=== PATIENT | male | born 1935 | race Caucasian/White ===

== ENCOUNTER → 2016-11-26 | Outpatient (CLI) | payer MEDICARE, BC ==
--- NOTE | 2016-11-26 08:01 | CT ---
EXAMINATION TYPE: CT sinus wo con DATE OF EXAM: 11/26/2016 7:27 AM COMPARISON: 05/29/2010 HISTORY: Sinusitis CT DLP: 550.[address] of the paranasal sinuses was performed in the axial and coronal planes. Bone and soft tissue settings are submitted. There is been prior right medial maxillary antrectomy and ethmoidectomy seen bilaterally. There is mo derate mucosal thickening of the maxillary sinuses right greater than left without evidence for obstr uction. Remaining ethmoid air cells also demonstrate mucosal thickening. The frontal sinuses and sphe noid sinus are well aerated. Mastoid air cells are also well-aerated bilaterally. There is no evidenc e of bony destructive process. Nasal septum is midline. IMPRESSION: 1. Chronic maxillary and ethmoidal sinusitis. 2. Postoperative changes as discussed.
--- NOTE | 2016-11-26 09:36 | FL ---
ESOPHOGRAM. HISTORY: Dysphagia Esophagram was performed per the air contrast technique. The patient swallowed barium and effervesce nt crystals without difficulty or delay. Esophageal peristalsis and motility appear to be within normal limits. There is no evidence for filling defect, mass or diverticulum. No hiatal hernia seen. Subsequently single contrast cervical esophagram was performed which fails demonstrate evidence for a spiration penetration or mass. There is hypertrophy of the cricopharyngeus musculature. 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
== END | disposition home or self-care (01) ==
LOC: RADCTMAIN 06:41
PROVIDERS: ATTEND Otolaryngology
DX: J39.2 Other diseases of pharynx (principal); J32.0 Chronic maxillary sinusitis; J32.2 Chronic ethmoidal sinusitis; Z98.890 Other specified postprocedural states
CPT/HCPCS: 70486; 74220; 86235

== ENCOUNTER 2016-11-30 09:30 | Emergency (ER) | payer MEDICARE, BC ==
--- NOTE | 2016-11-30 11:04 | ED ---
Lower Extremity Injury HPI <Ricardo Hammond - Last Filed: 11/30/16 15:37> - General Source: patient, RN notes reviewed Mode of arrival: wheelchair Limitations: no limitations <Ladi Smart - Last Filed: 11/30/16 15:55> - General Chief Complaint: Extremity Injury, Lower Stated Complaint: ankle pain Time Seen by Provider: 11/30/16 10:44 - History of Present Illness Initial Comments: Patient is a 81-year-old male presents to the emergency room for evaluation of left leg pain. Patient states he began having increasing pain over the past week. Patient states he's having pain on bilateral portions of his ankle and radiating up into his calf. Patient denies any injury to his ankle. Patient states he's having significant pain in his leg. Patient denies any numbness or tingling in his toes. Patient denies any history of DVTs. Patient denies shortness of breath or chest pain. (Ladi mSart) - Related Data Home Medications Medication Instructions Recorded Confirmed Atenolol [Tenormin] 100 mg PO DAILY 11/30/16 11/30/16 Cefuroxime [Ceftin] 250 mg PO Q12H 11/30/16 11/30/16 Diltiazem HCl [Diltiazem 24Hr ER] 180 mg PO Q24H 11/30/16 11/30/16 Terazosin [Hytrin] 5 mg PO HS 11/30/16 11/30/16 Warfarin Sodium [Coumadin] 5 mg PO DAILY 11/30/16 11/30/16 Allergies Allergy/AdvReac Type Severity Reaction Status Date / Time No Known Allergies Allergy Verified 11/30/16 11:03 Review of Systems ROS Other: All systems not noted in ROS Statement are negative. <Ricardo Hammond - Last Filed: 11/30/16 15:37> ROS Other: All systems not noted in ROS Statement are negative. <Ladi Smart - Last Filed: 11/30/16 15:55> ROS Statement: Those systems with pertinent positive or pertinent negative responses have been documented in the HPI. Past Medical History Past Medical History: Atrial Fibrillation, Chest Pain / Angina, Hypertension, Prostate Disorder History of Any Multi-Drug Resistant Organisms: None Reported Past Surgical History: Joint Replacement Additional Past Surgical History / Comment(s): bilateral knee replacements, bilateral rotator cuff repairs Past Anesthesia/Blood Transfusion Reactions: No Reported Reaction Past Psychological History: No Psychological Hx Reported Smoking Status: Former smoker Past Alcohol Use History: None Reported Past Drug Use History: None Reported <Ladi Smart - Last Filed: 11/30/16 15:55> General Exam <Ricardo Hammond - Last Filed: 11/30/16 15:37> Limitations: no limitations General appearance: alert, in no apparent distress Head exam: Present: atraumatic, normocephalic, normal inspection Eye exam: Present: normal appearance ENT exam: Present: normal exam Neck exam: Present: normal inspection Respiratory exam: Present: normal lung sounds bilaterally. Absent: respiratory distress Cardiovascular Exam: Present: regular rate, normal rhythm, normal heart sounds Expanded Peripheral pulses: 1+: Dorsalis Pedis (L), 2+: Dorsalis Pedis (R) Left Lower Leg exam: Present: tenderness (Palpating over the calf muscle) Ankle exam: Present: full ROM, tenderness (Bilateral ankle joint), swelling Foot/Toe exam: Present: normal inspection, full ROM. Absent: tenderness Neurovascular tendon exam: Absent: no vascular compromise (Left ankle/foot cold to touch), pulse deficit (Decreased dorsal pedal pulses compared to right), abnormal cap refill (Capillary refill less than 2 seconds) Back exam: Present: normal inspection Neurological exam: Present: alert, oriented X3, CN II-XII intact Psychiatric exam: Present: normal affect, normal mood Skin exam: Present: warm, dry, intact, normal color. Absent: rash <Ladi Smart - Last Filed: 11/30/16 15:55> - General Exam Comments Initial Comments: Sitting on exam bed in no acute distress. (Ladi Smart) Medical Decision Making - Lab Data Result diagrams: 11/30/16 14:05 11/30/16 14:05 <Ricardo Hammond - Last Filed: 11/30/16 15:37> - Lab Data Result diagrams: 11/30/16 14:05 11/30/16 14:05 - Radiology Data Radiology results: report reviewed, image reviewed <Ladi Smart - Last Filed: 11/30/16 15:55> - Medical Decision Making The patient was seen and examined. All diagnostics were reviewed. It appears that he has a partially ischemic left leg. He does have a history of atrial fibrillation. His INR is elevated. The case is discussed with Dr. Roberts who sees the patient in the emergency department and recommends transfer to [facility]. The case is discussed with Dr. Mckinney and he is agreeable to admission. I have discussed the case with the PA and I agree with the findings as documented. (Ricardo Hammond) Patient is a 81-year-old male presents to the emergency room for evaluation of left ankle pain. Ultrasound negative for DVT. X-rays show no acute findings. Case discussed with Dr. Hammond. Patient has a history of A. fib. INR elevated. Dr. Hammond also evaluated patient and discussed case with Dr. Roberts. Dr. Banks also evaluated patient and recommended transfer to [facility]. Plan discussed with patient. (Ladi Smart) - Lab Data Lab Results 11/30/16 11/30/16 11/30/16 Range/Units 14:05 14:05 14:05 WBC 11.9 H (3.8-10.6) k/uL RBC 4.76 (4.30-5.90) m/uL Hgb 13.1 (13.0-17.5) gm/dL Hct 40.2 (39.0-53.0) % MCV 84.5 (80.0-100.0) fL MCH 27.6 (25.0-35.0) pg MCHC 32.7 (31.0-37.0) g/dL RDW 15.4 (11.5-15.5) % Plt Count 162 (150-450) k/uL Neutrophils % 87 % Lymphocytes % 6 % Monocytes % 5 % Eosinophils % 1 % Basophils % 0 % Neutrophils # 10.3 H (1.3-7.7) k/uL Lymphocytes # 0.8 L (1.0-4.8) k/uL Monocytes # 0.6 (0-1.0) k/uL Eosinophils # 0.1 (0-0.7) k/uL Basophils # 0.0 (0-0.2) k/uL PT 45.8 H (9.0-12.0) sec INR 4.6 (<1.1) APTT 38.7 H (22.0-30.0) sec Sodium 139 (137-145) mmol/L Potassium 4.4 (3.5-5.1) mmol/L Chloride 101 (98-107) mmol/L Carbon Dioxide 27 (22-30) mmol/L Anion Gap 11 mmol/L BUN 17 (9-20) mg/dL Creatinine 0.81 (0.66-1.25) mg/dL Est GFR (MDRD) Af Amer >60 (>60 ml/min/1.73 sqM) Est GFR (MDRD) Non-Af >60 (>60 ml/min/1.73 sqM) Glucose 123 H (74-99) mg/dL Calcium 9.4 (8.4-10.2) mg/dL Total Bilirubin 1.6 H (0.2-1.3) mg/dL AST 35 (17-59) U/L ALT 22 (21-72) U/L Alkaline Phosphatase 152 H (38-126) U/L Total Protein 7.5 (6.3-8.2) g/dL Albumin 3.5 (3.5-5.0) g/dL 11/30/16 14:36 Atrial fibrillation, ventricular rate 72 bpm, QRS duration 94 ms, QT/QTC 388/ 424 ms (Ladi Smart) Disposition <Ricardo Hammond - Last Filed: 11/30/16 15:37> - Out of Hospital Transfer - Req. Specs Out of Hospital Transfer - Requested Specifics: Other Emergency Center ([facility]) <Ladi Smart - Last Filed: 11/30/16 15:55> Clinical Impression: Arterial occlusion, lower extremity Disposition: OTHER INSTITUTION NOT DEFINED Condition: Stable
--- NOTE | 2016-11-30 11:21 | XR ---
EXAMINATION TYPE: XR ankle complete LT, XR tibia fibula LT DATE OF EXAM: 11/30/2016 11:16 AM CLINICAL HISTORY: pain TECHNIQUE: Frontal, lateral and oblique images of the left foot are obtained. COMPARISON: None. FINDINGS: There is no acute fracture/dislocation evident. Well-corticated ossific densities adjacent to the medial malleolus are likely chronic in nature. Cystic degenerative change about the bony tars al region and tarsometatarsal joints. The overlying soft tissue appears unremarkable. IMPRESSION: There is no acute fracture or dislocation. ICD 10 NO FRACTURE, INITIAL EVALUATION EXAMINATION TYPE: XR ankle complete LT, XR tibia fibula LT DATE OF EXAM: 11/30/2016 11:16 AM CLINICAL HISTORY: pain TECHNIQUE: AP and lateral images of the left tibia and fibula are obtained. COMPARISON: None. FINDINGS: There is no acute fracture/dislocation evident. The joint spaces appear within normal long its. The overlying soft tissue appears unremarkable. IMPRESSION: There is no acute fracture or dislocation seen. ICD 10 NO FRACTURE, INITIAL EVALUATION
--- NOTE | 2016-11-30 12:28 | US ---
EXAMINATION TYPE: US venous Doppler duplex LE LT DATE OF EXAM: 11/30/2016 11:49 AM COMPARISON: NONE CLINICAL HISTORY: EC Patient with pain and swelling left lower leg and at left ankle x 1 week. SIDE PERFORMED: Left VESSELS IMAGED: Common Femoral Vein Deep Femoral Vein Greater Saphenous Vein * Femoral Vein Popliteal Vein Small Saphenous Vein * Proximal Calf Veins (* superficial vessels) findings: Hypoechoic fluid channels are noted left ankle anteriorly at c/o swelling; left groin mult iple lymph nodes are noted with largest = 1.9 x 1.6 x 0.7cm. Left Leg: Negative for DVT IMPRESSION: Negative for DVT
[2016-11-30] MEDS ORDERED: HYDROcodone/APAP 5-325MG 1 EACH TAB PO STA (13:37)
[2016-11-30 14:26] LABS: Basophils % (A) 0 %; CH 28.1; CHCM 33.5; Eosinophils # (A) 0.1 k/uL (0-0.7); Eosinophils % (A) 1 %; HCT 40.2 % (39.0-53.0); HDW 3.13; HGB 13.1 gm/dL (13.0-17.5); Luc # (Auto) 0.09; Luc % (Auto) 1; Lymphocytes # (A) 0.8 k/uL (1.0-4.8); Lymphocytes % (A) 6 %; MCH 27.6 pg (25.0-35.0); MCHC 32.7 g/dL (31.0-37.0); MCV 84.5 fL (80.0-100.0); Mean Platelet Volume 7.8; Monocytes # (A) 0.6 k/uL (0-1.0); Monocytes % (A) 5 %; Neutrophils # (A) 10.3 k/uL (1.3-7.7); Neutrophils % (A) 87 %; RBC 4.76 m/uL (4.30-5.90); RDW 15.4 % (11.5-15.5); WBC 11.9 k/uL (3.8-10.6)
[2016-11-30 14:29] LABS: INR 4.6 (<1.1); Partial Thromboplastin Time 38.7 sec (22.0-30.0); Prothrombin Time 45.8 sec (9.0-12.0)
[2016-11-30 14:33] LABS: ALT 22 U/L (21-72); AST 35 U/L (17-59); Alkaline Phosphatase 152 U/L (38-126); Anion Gap 11 mmol/L; Blood Urea Nitrogen 17 mg/dL (9-20); Calcium 9.4 mg/dL (8.4-10.2); Carbon Dioxide 27 mmol/L (22-30); Chloride 101 mmol/L (98-107); Glucose 123 mg/dL (74-99); Non-African American GFR(MDRD) >60 (>60 ml/min/1.73 sqM); Sodium 139 mmol/L (137-145); Total Bilirubin 1.6 mg/dL (0.2-1.3); Total Protein 7.5 g/dL (6.3-8.2)
[2016-11-30 15:06] LABS: Potassium 4.4 mmol/L (3.5-5.1)
[2016-11-30 16:09] VITALS: BP 180/80; PULSE 75; RESP 16; TEMP 97
== END 2016-11-30 16:30 | disposition other institution (70) ==
LOC: EC 09:30
DX: I74.9 Embolism and thrombosis of unspecified artery (principal); I48.91 Unspecified atrial fibrillation; Z79.01 Long term (current) use of anticoagulants; I10 Essential (primary) hypertension; Z87.891 Personal history of nicotine dependence
CPT/HCPCS: 36415; 80053; 85025; 85610; 85730; 93005; 99285

== ENCOUNTER 2017-01-19 13:55 | Emergency (ER) | payer MEDICARE, BC ==
[2017-01-19 14:13] VITALS: RESP 18
--- NOTE | 2017-01-19 14:30 | ED ---
General Adult HPI - General Chief complaint: Fall Stated complaint: fall Time Seen by Provider: 01/19/17 14:17 Source: EMS, RN notes reviewed, old records reviewed Mode of arrival: EMS Limitations: no limitations - History of Present Illness Initial comments: This is a 81-year-old male to the ER for evaluation of fall. Patient's longterm, DO NOT RESUSCITATE, multiple medical comorbidities. Patient was in his wheelchair today fell forward pain front of his head. No loss of consciousness witnessed fall. [facility] and sent ER for evaluation regarding head injury. Patient self has no complaints, denies injury denies headache denies nausea vomiting. No blood thinners - Related Data Home Medications Medication Instructions Recorded Confirmed Atenolol [Tenormin] 100 mg PO DAILY 11/30/16 11/30/16 Cefuroxime [Ceftin] 250 mg PO Q12H 11/30/16 11/30/16 Diltiazem HCl [Diltiazem 24Hr ER] 180 mg PO Q24H 11/30/16 11/30/16 Terazosin [Hytrin] 5 mg PO HS 11/30/16 11/30/16 Warfarin Sodium [Coumadin] 5 mg PO DAILY 11/30/16 11/30/16 Allergies Allergy/AdvReac Type Severity Reaction Status Date / Time No Known Allergies Allergy Verified 01/19/17 14:13 Review of Systems ROS Statement: Those systems with pertinent positive or pertinent negative responses have been documented in the HPI. ROS Other: All systems not noted in ROS Statement are negative. Past Medical History Past Medical History: Atrial Fibrillation, Chest Pain / Angina, Hypertension, Prostate Disorder History of Any Multi-Drug Resistant Organisms: None Reported Past Surgical History: Joint Replacement Additional Past Surgical History / Comment(s): bilateral knee replacements, bilateral rotator cuff repairs Past Anesthesia/Blood Transfusion Reactions: No Reported Reaction Past Psychological History: No Psychological Hx Reported Smoking Status: Former smoker Past Alcohol Use History: None Reported Past Drug Use History: None Reported General Exam Limitations: no limitations General appearance: alert, in no apparent distress Head exam: Present: atraumatic, normocephalic, normal inspection Eye exam: Present: normal appearance, PERRL, EOMI. Absent: scleral icterus, conjunctival injection, periorbital swelling ENT exam: Present: normal exam, mucous membranes moist Neck exam: Present: normal inspection. Absent: tenderness, meningismus, lymphadenopathy Respiratory exam: Present: normal lung sounds bilaterally. Absent: respiratory distress, wheezes, rales, rhonchi, stridor Cardiovascular Exam: Present: regular rate, normal rhythm, normal heart sounds. Absent: systolic murmur, diastolic murmur, rubs, gallop, clicks GI/Abdominal exam: Present: soft, normal bowel sounds. Absent: distended, tenderness, guarding, rebound, rigid Extremities exam: Present: normal inspection, full ROM, normal capillary refill. Absent: tenderness, pedal edema, joint swelling, calf tenderness Back exam: Present: normal inspection Neurological exam: Present: alert, oriented X3, CN II-XII intact Psychiatric exam: Present: normal affect, normal mood Skin exam: Present: warm, dry, intact, normal color. Absent: rash Course Vital Signs 01/19/17 14:04 Temperature 97.0 F L Pulse Rate 53 L Respiratory 18 Rate Blood Pressure 123/73 O2 Sat by Pulse 97 Oximetry - Reevaluation(s) Reevaluation #1: 01/19/17 14:29 Patient remains without complaint, states this is an old injury, no headache. No nausea vomiting Medical Decision Making - Medical Decision Making 81 mallei are status post fall, thought a wheelchair hitting head anterior head injury no loss of consciousness patient has no complaints CT brain is negative and patient can be discharged back to nursing facility - Radiology Data Radiology results: report reviewed (CT brain negative for acute disease), image reviewed Disposition Clinical Impression: Fall, Head injury Disposition: HOME SELF-CARE Condition: Good Instructions: Fall Prevention for Older Adults (ED) Referrals: Nia Collier MD [Primary Care Provider] - 1-2 days
--- NOTE | 2017-01-19 15:09 | CT ---
EXAMINATION TYPE: CT brain wo con DATE OF EXAM: 01/19/2017 2:49 PM HISTORY: Headache per order. Follow injury with confusion. CT DLP: 1079.60 mGycm. Automated Exposure Control for Dose Reduction was Utilized. TECHNIQUE: CT scan of the head is performed without contrast. COMPARISON: None. FINDINGS: There is no acute intracranial hemorrhage or midline shift identified. There is diffuse v entricular and sulcal prominence consistent with diffuse age-related cerebral atrophy. Degree of vent ricular prominence is out of proportion to degree of sulcal effacement and a normal pressure hydrocep halus cannot be excluded. There is low-attenuation in the periventricular white matter consistent wit h chronic small vessel ischemic change. There is moderate mucosal thickening in the right maxillary s inus and mild mucosal thickening in the left maxillary sinus. Some sclerosis and thickening left maxi llary sinus wall is noted. There is evidence of prior surgery at level of ostiomeatal complex bilater ally. There is air-fluid level in the right frontal sinus. The globes are intact bilaterally. The vivi varium is intact.. IMPRESSION: No acute intracranial hemorrhage or midline shift. There is moderate diffuse age-relate d cerebral atrophy and mild chronic small vessel ischemic change noted. A normal pressure hydrocepha jonas is not excluded. Correlation with old outside studies would be beneficial to assess interval ann ge. There is acute on chronic paranasal sinus disease noted as detailed above despite prior sinus lizabeth marbella.
[2017-01-19 15:49] VITALS: BP 134/60; PULSE 58; TEMP 98
== END 2017-01-19 15:58 | disposition home or self-care (01) ==
LOC: EC 13:55
DX: S09.90XA Unspecified injury of head, initial encounter (principal); I48.91 Unspecified atrial fibrillation; I10 Essential (primary) hypertension; Z87.891 Personal history of nicotine dependence; Z79.01 Long term (current) use of anticoagulants; Z79.899 Other long term (current) drug therapy; W06.XXXA Fall from bed, initial encounter; Y92.009 Unspecified place in unspecified non-institutional (private) residence as the place of occurrence of the external cause
CPT/HCPCS: 70450; 99285

== ENCOUNTER 2017-08-31 20:29 | Emergency (ER) | payer MEDICARE, BC, OTHER ==
[2017-08-31 20:42] VITALS: RESP 18
--- NOTE | 2017-08-31 21:25 | ED ---
Extremity Problem HPI - General Chief complaint: Extremity Problem,Nontraumatic Stated complaint: lower extremity edema Time Seen by Provider: 08/31/17 21:00 Source: patient, EMS, RN notes reviewed Mode of arrival: EMS Limitations: no limitations - History of Present Illness Initial comments: This 82-year-old male was brought in for evaluation of right lower extremity edema he states it for several weeks also states he has some sores in her being treated on his right lateral ankle and foot he has a chest patient's breath fevers chills sweats or other symptoms he does have chronic A. fib he is diabetic. 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 Please see the previous records for complete report MD Complaint: extremity swelling - Related Data Home Medications Medication Instructions Recorded Confirmed Warfarin Sodium [Coumadin] 5 mg PO DAILY 11/30/16 08/31/17 Atorvastatin [Lipitor] 20 mg PO HS@209901/19/17 08/31/17 Diltiazem HCl [Diltiazem ER] 360 mg PO DAILY@0900 01/19/17 08/31/17 Furosemide [Lasix] 40 mg PO DAILY@0600 01/19/17 08/31/17 HYDROcodone/APAP 5-325MG [Butler 1 - 2 tab PO Q4HR PRN 01/19/17 08/31/17 5-325] Ipratropium-Albuterol Nebulize 3 ml INHALATION RT-Q6H PRN 01/19/17 08/31/17 [Duoneb 0.5 mg-3 mg/3 ml Soln] Metoprolol Tartrate [Lopressor] 50 mg PO BID@0900,209901/19/17 08/31/17 Omeprazole [PriLOSEC] 20 mg PO DAILY@0600 01/19/17 08/31/17 Terazosin HCl [Hytrin] 10 mg PO HS@209901/19/17 08/31/17 SILVER sulfADIAZINE Cream 1 applic TOPICAL DAILY 08/31/17 08/31/17 [Silvadene 1% Cream] Allergies Allergy/AdvReac Type Severity Reaction Status Date / Time No Known Allergies Allergy Verified 08/31/17 21:03 Review of Systems ROS Statement: Those systems with pertinent positive or pertinent negative responses have been documented in the HPI. ROS Other: All systems not noted in ROS Statement are negative. Past Medical History Past Medical History: Atrial Fibrillation, Chest Pain / Angina, Heart Failure, GERD/Reflux, Hyperlipidemia, Hypertension, Prostate Disorder History of Any Multi-Drug Resistant Organisms: None Reported Past Surgical History: Joint Replacement Additional Past Surgical History / Comment(s): bilateral knee replacements, bilateral rotator cuff repairs, left BKA Past Anesthesia/Blood Transfusion Reactions: No Reported Reaction Past Psychological History: Anxiety Smoking Status: Former smoker Past Alcohol Use History: None Reported Past Drug Use History: None Reported General Exam - General Exam Comments Initial Comments: This is a well-developed well-nourished awake alert oriented 3 male Limitations: no limitations General appearance: alert, in no apparent distress Head exam: Present: atraumatic, normocephalic, normal inspection Eye exam: Present: normal appearance, PERRL, EOMI. Absent: scleral icterus, conjunctival injection, periorbital swelling ENT exam: Present: normal exam, mucous membranes moist Neck exam: Present: normal inspection. Absent: tenderness, meningismus, lymphadenopathy Respiratory exam: Present: normal lung sounds bilaterally. Absent: respiratory distress, wheezes, rales, rhonchi, stridor Cardiovascular Exam: Present: irregular rhythm. Absent: systolic murmur, diastolic murmur, rubs, gallop, clicks GI/Abdominal exam: Present: soft, normal bowel sounds. Absent: distended, tenderness, guarding, rebound, rigid Extremities exam: Present: full ROM, normal capillary refill, pedal edema ( Patient does demonstrate perhaps +1 edema to the right lower extremity with wounds are over the lateral right ankle and lateral foot at the level of the fifth metatarsal phalangeal joint with dressing is intact.). Absent: tenderness , joint swelling, calf tenderness Back exam: Present: normal inspection, full ROM (The patient does have a above the knee of dictation the left with the appliance in place) Neurological exam: Present: alert, oriented X3, CN II-XII intact Psychiatric exam: Present: normal affect, normal mood Skin exam: Present: warm, dry, intact, normal color. Absent: rash Course Vital Signs 08/31/17 08/31/17 20:39 23:19 Temperature 97.6 F Pulse Rate 48 L 42 L Respiratory 18 18 Rate Blood Pressure 137/63 156/66 O2 Sat by Pulse 96 97 Oximetry Medical Decision Making - Medical Decision Making I did discuss findings with the patient will be discharged back to his facility. - Lab Data Result diagrams: 08/31/17 20:40 08/31/17 20:40 Lab Results 08/31/17 08/31/17 08/31/17 Range/Units 20:40 20:40 20:40 WBC 5.9 (3.8-10.6) k/uL RBC 3.76 L (4.30-5.90) m/uL Hgb 10.7 L (13.0-17.5) gm/dL Hct 34.2 L (39.0-53.0) % MCV 91.1 (80.0-100.0) fL MCH 28.3 (25.0-35.0) pg MCHC 31.1 (31.0-37.0) g/dL RDW 14.8 (11.5-15.5) % Plt Count 161 (150-450) k/uL Neutrophils % 64 % Lymphocytes % 20 % Monocytes % 5 % Eosinophils % 11 % Basophils % 0 % Neutrophils # 3.8 (1.3-7.7) k/uL Lymphocytes # 1.2 (1.0-4.8) k/uL Monocytes # 0.3 (0-1.0) k/uL Eosinophils # 0.6 (0-0.7) k/uL Basophils # 0.0 (0-0.2) k/uL Sodium 137 (137-145) mmol/L Potassium 4.2 (3.5-5.1) mmol/L Chloride 102 (98-107) mmol/L Carbon Dioxide 26 (22-30) mmol/L Anion Gap 9 mmol/L BUN 23 H (9-20) mg/dL Creatinine 0.76 (0.66-1.25) mg/dL Est GFR (MDRD) Af Amer >60 (>60 ml/min/1.73 sqM) Est GFR (MDRD) Non-Af >60 (>60 ml/min/1.73 sqM) Glucose 223 H (74-99) mg/dL Calcium 8.4 (8.4-10.2) mg/dL Magnesium 1.7 (1.6-2.3) mg/dL Total Bilirubin 0.3 (0.2-1.3) mg/dL AST 15 L (17-59) U/L ALT 24 (21-72) U/L Alkaline Phosphatase 121 (38-126) U/L Total Creatine Kinase 47 L (55-170) U/L CK-MB (CK-2) 1.7 (0.0-2.4) ng/mL CK-MB (CK-2) Rel Index 3.6 Total Protein 6.5 (6.3-8.2) g/dL Albumin 2.9 L (3.5-5.0) g/dL - EKG Data -: EKG Interpreted by Me EKG shows normal: sinus rhythm (Nonspecific T-wave configuration) - Radiology Data Radiology results: report reviewed (I did review the imaging and reports no acute findings.), image reviewed Disposition Clinical Impression: Peripheral edema Disposition: HOME SELF-CARE Condition: Good Instructions: Edema (ED) Referrals: Nia Collier MD [Primary Care Provider] - 1-2 days
[2017-08-31 21:34] LABS: Basophils % (A) 0 %; CH 29.3; CHCM 32.4; Eosinophils # (A) 0.6 k/uL (0-0.7); Eosinophils % (A) 11 %; HCT 34.2 % (39.0-53.0); HDW 3.08; HGB 10.7 gm/dL (13.0-17.5); Luc # (Auto) 0.04; Luc % (Auto) 1; Lymphocytes # (A) 1.2 k/uL (1.0-4.8); Lymphocytes % (A) 20 %; MCH 28.3 pg (25.0-35.0); MCHC 31.1 g/dL (31.0-37.0); MCV 91.1 fL (80.0-100.0); Mean Platelet Volume 8.2; Monocytes # (A) 0.3 k/uL (0-1.0); Monocytes % (A) 5 %; Neutrophils # (A) 3.8 k/uL (1.3-7.7); Neutrophils % (A) 64 %; RBC 3.76 m/uL (4.30-5.90); RDW 14.8 % (11.5-15.5); WBC 5.9 k/uL (3.8-10.6); WBC (Perox) 5.62
--- NOTE | 2017-08-31 21:43 | XR ---
EXAMINATION TYPE: XR chest 2V DATE OF EXAM: 08/31/2017 COMPARISON: 08/20/2016 HISTORY: Cough TECHNIQUE: Frontal and lateral views of the chest are obtained. FINDINGS: Heart is slightly enlarged. There is no heart failure. Thoracic aorta is atheromatous. The re is no definite pleural effusion. There are chest leads. IMPRESSION: No active cardiac pulmonary disease. There is clearing of the atelectasis and pleural th ickening on the right minor fissure compared to last exam. Mild cardiomegaly.
[2017-08-31 21:51] LABS: ALT 24 U/L (21-72); AST 15 U/L (17-59); Alkaline Phosphatase 121 U/L (38-126); Anion Gap 9 mmol/L; Blood Urea Nitrogen 23 mg/dL (9-20); Calcium 8.4 mg/dL (8.4-10.2); Carbon Dioxide 26 mmol/L (22-30); Chloride 102 mmol/L (98-107); Glucose 223 mg/dL (74-99); Magnesium 1.7 mg/dL (1.6-2.3); Non-African American GFR(MDRD) >60 (>60 ml/min/1.73 sqM); Potassium 4.2 mmol/L (3.5-5.1); Sodium 137 mmol/L (137-145); Total Bilirubin 0.3 mg/dL (0.2-1.3); Total Protein 6.5 g/dL (6.3-8.2)
[2017-08-31 21:59] LABS: Creatine Kinase MB 1.7 ng/mL (0.0-2.4)
--- NOTE | 2017-08-31 23:23 | US ---
EXAMINATION TYPE: US venous doppler duplex LE RT DATE OF EXAM: 08/31/2017 11:09 PM COMPARISON: NONE CLINICAL HISTORY: Pain. right leg edema SIDE PERFORMED: Right TECHNIQUE: The lower extremity deep venous system is examined utilizing real time linear array sonog kevon with graded compression, doppler sonography and color-flow sonography. VESSELS IMAGED: External Iliac Vein (EIV) Common Femoral Vein Deep Femoral Vein Greater Saphenous Vein * Femoral Vein Popliteal Vein Small Saphenous Vein * Proximal Calf Veins (* superficial vessels) Right Leg: Negative for DVT No evidence of DVT right leg IMPRESSION: Normal exam. No evidence of deep venous thrombosis in the right leg.
[2017-09-01 01:34] VITALS: BP 152/70; PULSE 46; TEMP 98
== END 2017-09-01 01:33 | disposition home or self-care (01) ==
LOC: EC 20:29
DX: R60.0 Localized edema (principal); I48.91 Unspecified atrial fibrillation; K21.9 Gastro-esophageal reflux disease without esophagitis; I11.0 Hypertensive heart disease with heart failure; I50.9 Heart failure, unspecified; E78.5 Hyperlipidemia, unspecified; Z87.891 Personal history of nicotine dependence; Z96.653 Presence of artificial knee joint, bilateral; Z89.512 Acquired absence of left leg below knee; Z79.01 Long term (current) use of anticoagulants; Z79.899 Other long term (current) drug therapy
CPT/HCPCS: 36415; 71020; 80053; 82550; 82553; 83735; 85025; 93005; 99284

== ENCOUNTER 2018-06-11 19:06 | Emergency (ER) | payer MEDICARE, BC ==
[2018-06-11 19:41] VITALS: TEMP 97.8
[2018-06-11] MEDS ORDERED: SODIUM CHLORIDE 0.9% 1,000 ML IV STA (21:22)
--- NOTE | 2018-06-11 21:28 | ED ---
Abdominal Pain HPI - General Chief Complaint: Abdominal Pain Stated Complaint: Constipation Time Seen by Provider: 06/11/18 21:14 Source: patient, RN notes reviewed Mode of arrival: ambulatory Limitations: no limitations - History of Present Illness Initial Comments: This is an 82-year-old male presents emergency Department chief complaint abdominal pain. Patient's been having worsening pain over the last 1 month. Patient states IT'S worse when he eats. He states he gets severe diffuse abdominal pain. Patient denies any fever, chills, chest pain, shortness of breath. Patient states he is not discussed this with his primary care physician. Patient states that he does occasionally vomit he is very nausea. Patient also has mixed diarrhea and constipation at times. Patient denies any melena or hematochezia. Patient states that he's had no prior abdominal surgeries. - Related Data Home Medications Medication Instructions Recorded Confirmed Warfarin Sodium [Coumadin] 5 mg PO DAILY 11/30/16 06/01/18 Atorvastatin [Lipitor] 20 mg PO HS@2100 01/19/17 06/01/18 Furosemide [Lasix] 40 mg PO DAILY@0600 01/19/17 06/01/18 HYDROcodone/APAP 5-325MG [[place] 1 - 2 tab PO Q4HR PRN 01/19/17 06/01/18 5-325] Metoprolol Tartrate [Lopressor] 50 mg PO BID@0900,2100 01/19/17 06/01/18 Terazosin HCl [Hytrin] 10 mg PO HS@2100 01/19/17 06/01/18 Aspirin 81 mg PO DAILY 11/05/17 06/01/18 Sennosides [Senna] 8.6 mg PO DAILY 11/05/17 06/01/18 Sulfamethox-Tmp 800-160Mg [Bactrim 1 tab PO Q12HR 06/01/18 06/01/18 DS 800-160 mg] Previous Rx's Medication Instructions Recorded Diltiazem Cd [Cardizem CD] 180 mg PO DAILY@0900 cap.er.24h 11/08/17 Ipratropium-Albuterol Nebulize 3 ml INHALATION RT-QID ampul.neb 11/08/17 [Duoneb 0.5 mg-3 mg/3 ml Soln] Omeprazole 40 mg PO DAILY #14 capsule. 06/11/18 Allergies Allergy/AdvReac Type Severity Reaction Status Date / Time No Known Allergies Allergy Verified 06/11/18 19:40 Review of Systems ROS Statement: Those systems with pertinent positive or pertinent negative responses have been documented in the HPI. ROS Other: All systems not noted in ROS Statement are negative. Past Medical History Past Medical History: Atrial Fibrillation, Chest Pain / Angina, Heart Failure, GERD/Reflux, Hyperlipidemia, Hypertension, Prostate Disorder History of Any Multi-Drug Resistant Organisms: None Reported Date of last positivie culture/infection: 05/18/18 MDRO Source:: ANKLE Past Surgical History: Joint Replacement Additional Past Surgical History / Comment(s): bilateral knee replacements, bilateral rotator cuff repairs, left BKA Past Anesthesia/Blood Transfusion Reactions: No Reported Reaction Past Psychological History: Anxiety, Depression Smoking Status: Former smoker Past Alcohol Use History: None Reported Past Drug Use History: None Reported - Past Family History Father History Unknown: Yes Mother History Unknown: Yes General Exam Limitations: no limitations General appearance: alert, in no apparent distress Head exam: Present: atraumatic, normocephalic, normal inspection Neck exam: Present: normal inspection, full ROM. Absent: tenderness, meningismus, lymphadenopathy Respiratory exam: Present: normal lung sounds bilaterally. Absent: respiratory distress, wheezes, rales, rhonchi, stridor Cardiovascular Exam: Present: regular rate, normal rhythm, normal heart sounds. Absent: systolic murmur, diastolic murmur, rubs, gallop, clicks GI/Abdominal exam: Present: soft, tenderness (Patient complains of mild diffuse tenderness), normal bowel sounds. Absent: distended, guarding, rebound, rigid Back exam: Absent: CVA tenderness (R), CVA tenderness (L) Skin exam: Present: warm, dry, intact, normal color. Absent: rash Course Vital Signs 06/11/18 19:36 Temperature 97.8 F Pulse Rate 53 L Respiratory 18 Rate Blood Pressure 160/65 O2 Sat by Pulse 95 Oximetry Medical Decision Making - Medical Decision Making 82-year-old male presents emergency from for abdominal pain after eating. Patient has essentially normal lab work, and CT. Patient most likely has some gastritis will be started on omeprazole. Patient was given Protonix in the emergency department. He does state that he gets relief when he eats,'s. Patient will follow-up with on-call GI or surgery for EGD and return parameters were discussed. - Lab Data Result diagrams: 06/11/18 21:40 06/11/18 21:40 Lab Results 06/11/18 06/11/18 06/11/18 Range/Units 21:40 21:40 21:40 WBC 8.0 (3.8-10.6) k/uL RBC 4.66 (4.30-5.90) m/uL Hgb 12.5 L (13.0-17.5) gm/dL Hct 39.4 (39.0-53.0) % MCV 84.4 (80.0-100.0) fL MCH 26.8 (25.0-35.0) pg MCHC 31.8 (31.0-37.0) g/dL RDW 15.2 (11.5-15.5) % Plt Count 203 (150-450) k/uL Neutrophils % 75 % Lymphocytes % 15 % Monocytes % 4 % Eosinophils % 5 % Basophils % 0 % Neutrophils # 6.0 (1.3-7.7) k/uL Lymphocytes # 1.2 (1.0-4.8) k/uL Monocytes # 0.3 (0-1.0) k/uL Eosinophils # 0.4 (0-0.7) k/uL Basophils # 0.0 (0-0.2) k/uL PT 24.4 H (9.0-12.0) sec INR 2.7 H (<1.2) APTT 31.5 H (22.0-30.0) sec Sodium 136 L (137-145) mmol/L Potassium 4.3 (3.5-5.1) mmol/L Chloride 104 (98-107) mmol/L Carbon Dioxide 25 (22-30) mmol/L Anion Gap 7 mmol/L BUN 23 H (9-20) mg/dL Creatinine 0.80 (0.66-1.25) mg/dL Est GFR (CKD-EPI)AfAm >90 (>60 ml/min/1.73 sqM) Est GFR (CKD-EPI)NonAf 85 (>60 ml/min/1.73 sqM) Glucose 103 H (74-99) mg/dL Calcium 8.9 (8.4-10.2) mg/dL Total Bilirubin 1.1 (0.2-1.3) mg/dL AST 26 (17-59) U/L ALT 36 (21-72) U/L Alkaline Phosphatase 126 (38-126) U/L Total Protein 6.7 (6.3-8.2) g/dL Albumin 3.1 L (3.5-5.0) g/dL Amylase <30 L (30-110) U/L Lipase 11 L (23-300) U/L Urine Color Urine Appearance (Clear) Urine pH (5.0-8.0) Ur Specific [place] (1.001-1.035) Urine Protein (Negative) Urine Glucose (UA) (Negative) Urine Ketones (Negative) Urine Blood (Negative) Urine Nitrite (Negative) Urine Bilirubin (Negative) Urine Urobilinogen (<2.0) mg/dL Ur Leukocyte Esterase (Negative) Urine RBC (0-5) /hpf Urine WBC (0-5) /hpf Ur Squamous Epith Cells (0-4) /hpf Hyaline Casts (0-2) /lpf Urine Mucus (None) /hpf 06/11/18 Range/Units 21:40 WBC (3.8-10.6) k/uL RBC (4.30-5.90) m/uL Hgb (13.0-17.5) gm/dL Hct (39.0-53.0) % MCV (80.0-100.0) fL MCH (25.0-35.0) pg MCHC (31.0-37.0) g/dL RDW (11.5-15.5) % Plt Count (150-450) k/uL Neutrophils % % Lymphocytes % % Monocytes % % Eosinophils % % Basophils % % Neutrophils # (1.3-7.7) k/uL Lymphocytes # (1.0-4.8) k/uL Monocytes # (0-1.0) k/uL Eosinophils # (0-0.7) k/uL Basophils # (0-0.2) k/uL PT (9.0-12.0) sec INR (<1.2) APTT (22.0-30.0) sec Sodium (137-145) mmol/L Potassium (3.5-5.1) mmol/L Chloride (98-107) mmol/L Carbon Dioxide (22-30) mmol/L Anion Gap mmol/L BUN (9-20) mg/dL Creatinine (0.66-1.25) mg/dL Est GFR (CKD-EPI)AfAm (>60 ml/min/1.73 sqM) Est GFR (CKD-EPI)NonAf (>60 ml/min/1.73 sqM) Glucose (74-99) mg/dL Calcium (8.4-10.2) mg/dL Total Bilirubin (0.2-1.3) mg/dL AST (17-59) U/L ALT (21-72) U/L Alkaline Phosphatase (38-126) U/L Total Protein (6.3-8.2) g/dL Albumin (3.5-5.0) g/dL Amylase (30-110) U/L Lipase (23-300) U/L Urine Color Yellow Urine Appearance Cloudy (Clear) Urine pH 5.5 (5.0-8.0) Ur Specific [place] 1.022 (1.001-1.035) Urine Protein 2+ H (Negative) Urine Glucose (UA) Negative (Negative) Urine Ketones Negative (Negative) Urine Blood Moderate H (Negative) Urine Nitrite Negative (Negative) Urine Bilirubin Negative (Negative) Urine Urobilinogen 2.0 (<2.0) mg/dL Ur Leukocyte Esterase Negative (Negative) Urine RBC 10 H (0-5) /hpf Urine WBC 4 (0-5) /hpf Ur Squamous Epith Cells <1 (0-4) /hpf Hyaline Casts 5 H (0-2) /lpf Urine Mucus Few H (None) /hpf Disposition Clinical Impression: Abdominal pain, Gastritis Disposition: HOME SELF-CARE Condition: Stable Instructions: Abdominal Pain (ED) Additional Instructions: Please return to the Emergency Department if symptoms worsen or any other concerns. Prescriptions: Omeprazole 40 mg PO DAILY #14 capsule.dr Is patient prescribed a controlled substance at d/c from ED?: No Referrals: Nia Collier MD [Primary Care Provider] - 1-2 days Shailesh Barriga DO [Doctor of Osteopathic Medicine] - 1-2 days Sandra Castillo MD [STAFF PHYSICIAN] - 1-2 days Time of Disposition: 23:19
[2018-06-11 21:51] LABS: Basophils % (A) 0 %; Eosinophils # (A) 0.4 k/uL (0-0.7); Eosinophils % (A) 5 %; HCT 39.4 % (39.0-53.0); HGB 12.5 gm/dL (13.0-17.5); Lymphocytes # (A) 1.2 k/uL (1.0-4.8); Lymphocytes % (A) 15 %; MCH 26.8 pg (25.0-35.0); MCHC 31.8 g/dL (31.0-37.0); MCV 84.4 fL (80.0-100.0); Monocytes # (A) 0.3 k/uL (0-1.0); Monocytes % (A) 4 %; Neutrophils % (A) 75 %; Platelet Count 203 k/uL (150-450); RBC 4.66 m/uL (4.30-5.90); RDW 15.2 % (11.5-15.5)
[2018-06-11 21:56] LABS: Appearance,Urine Cloudy (Clear); Bilirubin,Urine Negative (Negative); Blood,Urine Moderate (Negative); Color,Urine Yellow; Glucose,Urine (UA) Negative (Negative); Hyaline Casts,Urine 5 /lpf (0-2); Ketones,Urine Negative (Negative); Leukocyte Esterase,Urine Negative (Negative); Mucus,Urine Few /hpf; Nitrite,Urine Negative (Negative); PH, Urine 5.5 (5.0-8.0); Protein,Urine 2+ (Negative); RBC,Urine 10 /hpf (0-5); Specific Gravity,Urine 1.022 (1.001-1.035); Squamous Epithelial Cell,Urine <1 /hpf (0-4); WBC,Urine 4 /hpf (0-5)
[2018-06-11 22:00] LABS: ALT 36 U/L (21-72); AST 26 U/L (17-59); Albumin 3.1 g/dL (3.5-5.0); Alkaline Phosphatase 126 U/L (38-126); Amylase <30 U/L (30-110); Anion Gap 7 mmol/L; Blood Urea Nitrogen 23 mg/dL (9-20); Calcium 8.9 mg/dL (8.4-10.2); Carbon Dioxide 25 mmol/L (22-30); Chloride 104 mmol/L (98-107); Glucose 103 mg/dL (74-99); Lipase 11 U/L (23-300); Potassium 4.3 mmol/L (3.5-5.1); Sodium 136 mmol/L (137-145); Total Bilirubin 1.1 mg/dL (0.2-1.3); Total Protein 6.7 g/dL (6.3-8.2)
[2018-06-11 22:03] LABS: INR 2.7 (<1.2); Partial Thromboplastin Time 31.5 sec (22.0-30.0); Prothrombin Time 24.4 sec (9.0-12.0)
--- NOTE | 2018-06-11 23:04 | CT ---
EXAMINATION TYPE: CT abdomen pelvis w con DATE OF EXAM: 06/11/2018 COMPARISON: 08/17/2016 HISTORY: Vomiting and lower abdominal pain. Prior on pacs. CT DLP: 557.60 mGycm Automated exposure control for dose reduction was used. TECHNIQUE: Helical acquisition of images was performed from the lung bases through the pelvis. CONTRAST: Performed without Oral Contrast and with IV Contrast, patient injected with 100 mL of Isovue 300. FINDINGS: There is coarse subsegmental atelectasis at the lung bases. There is no pleural effusion. Heart is en larged. Liver and spleen appear normal. Bile ducts are not dilated. There is no evidence of pancreatic mass. Gallbladder appears normal. Abdominal aorta is atheromatous. There is no adrenal mass. There are poss ible nonobstructing right renal calculi. There is no retroperitoneal adenopathy. There is no ascites. Prostate is enlarged. Prostate measures 5 cm. I see no intestinal wall thickening. There are no dila nakia loops. There is no evidence of a bowel obstruction. There are few sigmoid diverticula. There is n o sign of diverticulitis. There are some spondylotic changes in the lumbar spine. There is no wily blanche fracture. IMPRESSION: ATHEROSCLEROTIC VASCULAR DISEASE. NONOBSTRUCTING SMALL RIGHT RENAL CALCIFICATIONS. SOME OF THESE COUL D BE VASCULAR. MILD FIBROTIC CHANGE AND ATELECTASIS AT THE LUNG BASES. THERE IS CLEARING OF THE PLEUR AL FLUID COMPARED TO OLD EXAM. SPLEEN IS UPPER LIMIT OF NORMAL SIZE AND MEASURES 13 CM.
[2018-06-11] MEDS ORDERED: PANTOPRAZOLE 40 MG/10 ML VIAL IVP STA (23:17)
[2018-06-11 23:38] VITALS: BP 174/98; PULSE 70; RESP 16
== END 2018-06-11 23:43 | disposition home or self-care (01) ==
LOC: EC 19:06
DX: K29.70 Gastritis, unspecified, without bleeding (principal); I48.91 Unspecified atrial fibrillation; I20.9 Angina pectoris, unspecified; I11.0 Hypertensive heart disease with heart failure; I50.9 Heart failure, unspecified; K21.9 Gastro-esophageal reflux disease without esophagitis; E78.5 Hyperlipidemia, unspecified; N42.9 Disorder of prostate, unspecified; Z87.891 Personal history of nicotine dependence; Z96.653 Presence of artificial knee joint, bilateral; Z79.01 Long term (current) use of anticoagulants; Z79.82 Long term (current) use of aspirin; Z79.899 Other long term (current) drug therapy
CPT/HCPCS: 36415; 80053; 82150; 83690; 85025; 85610; 85730; 81001; 74177; 99284; 96374; 96361; C9113; Q9967

== ENCOUNTER 2018-07-21 11:30 | Inpatient (IN) | payer MEDICARE, BC ==
[2018-07-21] MEDS ORDERED: SODIUM CHLORIDE 0.9% 500 ML IV STA (11:38)
--- NOTE | 2018-07-21 11:53 | ED ---
General Adult HPI - General Chief complaint: Abdominal Pain Stated complaint: abdominal pain Time Seen by Provider: 07/21/18 11:30 Source: patient, EMS, RN notes reviewed Mode of arrival: EMS Limitations: no limitations - History of Present Illness Initial comments: This is an 82-year-old male who arrived by ambulance complaining of abdominal pain. When I asked the patient wears pain was he said right and left lower abdomen. Patient states he is having some episodes of diarrhea and has vomited. Patient states she is no longer nauseated since they gave her medicine in the ambulance. Patient is extremely hard of hearing and therefore not a great historian. He denies any fever chills he denies any chest pain difficulty breathing or shortness of breath. Patient denies any dysuria hematuria urinary frequency. Patient denies any other complaints at this time. - Related Data Home Medications Medication Instructions Recorded Confirmed Warfarin Sodium [Coumadin] 2.5 mg PO DAILY 11/30/16 07/21/18 Atorvastatin [Lipitor] 20 mg PO HS@2100 01/19/17 07/21/18 Furosemide [Lasix] 40 mg PO DAILY@0600 01/19/17 07/21/18 Metoprolol Tartrate [Lopressor] 50 mg PO BID@0900,2100 01/19/17 07/21/18 Aspirin 81 mg PO DAILY 11/05/17 07/21/18 Sennosides [Senna] 8.6 mg PO BID 11/05/17 07/21/18 Levothyroxine Sodium 25 mcg PO DAILY 07/21/18 07/21/18 Lisinopril [Zestril] 20 mg PO DAILY 07/21/18 07/21/18 Sertraline HCl [Zoloft] 50 mg PO HS 07/21/18 07/21/18 Sucralfate [Carafate] 1 gm PO QID 07/21/18 07/21/18 Previous Rx's Medication Instructions Recorded Omeprazole 40 mg PO DAILY #14 capsule. 06/11/18 Allergies Allergy/AdvReac Type Severity Reaction Status Date / Time No Known Allergies Allergy Verified 07/21/18 12:13 Review of Systems ROS Statement: Those systems with pertinent positive or pertinent negative responses have been documented in the HPI. ROS Other: All systems not noted in ROS Statement are negative. Past Medical History Past Medical History: Atrial Fibrillation, Chest Pain / Angina, Heart Failure, GERD/Reflux, Hyperlipidemia, Hypertension, Prostate Disorder History of Any Multi-Drug Resistant Organisms: None Reported Date of last positivie culture/infection: 05/18/18 MDRO Source:: ANKLE Past Surgical History: Joint Replacement Additional Past Surgical History / Comment(s): bilateral knee replacements, bilateral rotator cuff repairs, left BKA Past Anesthesia/Blood Transfusion Reactions: No Reported Reaction Past Psychological History: Anxiety, Depression Smoking Status: Former smoker Past Alcohol Use History: None Reported Past Drug Use History: None Reported - Past Family History Father History Unknown: Yes Mother History Unknown: Yes General Exam - General Exam Comments Initial Comments: GENERAL: Patient is well-developed and well-nourished. Patient is nontoxic and well- hydrated and is in mild distress. ENT: Neck is soft and supple. No significant lymphadenopathy is noted. Oropharynx is clear. Moist mucous membranes. Neck has full range of motion without eliciting any pain. EYES: The sclera were anicteric and conjunctiva were pink and moist. Extraocular movements were intact and pupils were equal round and reactive to light. Eyelids were unremarkable. PULMONARY: Unlabored respirations. Good breath sounds bilaterally. No audible rales rhonchi or wheezing was noted. CARDIOVASCULAR: Patient has an irregular rhythm. ABDOMEN: Left and right lower quadrant tenderness. No palpable organomegaly was noted. There is no palpable pulsatile mass. SKIN: Skin is clear with no lesions or rashes and otherwise unremarkable. NEUROLOGIC: Patient is alert and oriented difficult to assess orientation since he was hard of hearing. Cranial nerves II through XII are grossly intact. Motor and sensory are also intact. Normal speech, volume and content. Symmetrical smile. MUSCULOSKELETAL: 3 of the extremities have adequate strength and full range of motion. Patient has a BKA on the left. No lower extremity swelling or edema. No calf tenderness. LYMPHATICS: No significant lymphadenopathy is noted PSYCHIATRIC: Normal psychiatric evaluation. Limitations: no limitations Course Vital Signs 07/21/18 07/21/18 07/21/18 11:34 13:20 14:08 Temperature 96 F L Pulse Rate 58 L 102 H 103 H Respiratory 20 20 18 Rate Blood Pressure 148/83 158/80 144/89 O2 Sat by Pulse 97 96 Oximetry Procedures - Sepsis Sepsis Focused Exam #1 Time Sepsis Criteria Met: 03:00 Sepsis Focused Exam Date: 07/21/18 Sepsis Focused Exam Time: 13:00 Sepsis Focused Exam Complete: Yes Vital Signs & RN Notes Reviewed: Yes Capillary Refill: < 2 Seconds: Fingers Peripheral Pulses: Normal: Radial (R) Skin Color: Normal for Patient Respiratory Exam: rales (Slight crackles in the bases) Cardiovascular Exam: tachycardia, irregular rhythm Medical Decision Making - Medical Decision Making Patient received Zosyn in the emergency department. CAT scan was reviewed by myself as well as the x-ray. Patient's EKG shows atrial fibrillation at a rate of 112 bpm occasional PVCs QRS is 86 QT interval 352 QTC is 480. Patient's EKG shows no ST segment elevation or depression. - Lab Data Result diagrams: 07/21/18 12:10 07/21/18 12:10 Lab Results 07/21/18 07/21/18 07/21/18 Range/Units 12:10 12:10 12:10 WBC 15.2 H (3.8-10.6) k/uL RBC 4.69 (4.30-5.90) m/uL Hgb 12.9 L (13.0-17.5) gm/dL Hct 41.8 (39.0-53.0) % MCV 89.2 (80.0-100.0) fL MCH 27.5 (25.0-35.0) pg MCHC 30.9 L (31.0-37.0) g/dL RDW 15.7 H (11.5-15.5) % Plt Count 235 (150-450) k/uL Neutrophils % 91 % Lymphocytes % 3 % Monocytes % 4 % Eosinophils % 0 % Basophils % 0 % Neutrophils # 13.9 H (1.3-7.7) k/uL Lymphocytes # 0.5 L (1.0-4.8) k/uL Monocytes # 0.7 (0-1.0) k/uL Eosinophils # 0.1 (0-0.7) k/uL Basophils # 0.0 (0-0.2) k/uL Hypochromasia Moderate PT (9.0-12.0) sec INR (<1.2) APTT (22.0-30.0) sec Sodium 139 (137-145) mmol/L Potassium 4.2 (3.5-5.1) mmol/L Chloride 105 (98-107) mmol/L Carbon Dioxide 18 L (22-30) mmol/L Anion Gap 16 mmol/L BUN 27 H (9-20) mg/dL Creatinine 1.25 (0.66-1.25) mg/dL Est GFR (CKD-EPI)AfAm 63 (>60 ml/min/1.73 sqM) Est GFR (CKD-EPI)NonAf 54 (>60 ml/min/1.73 sqM) Glucose 123 H (74-99) mg/dL Plasma Lactic Acid Né[place] 7.2 H* (0.7-2.0) mmol/L Calcium 8.7 (8.4-10.2) mg/dL Total Bilirubin 0.9 (0.2-1.3) mg/dL AST 516 H (17-59) U/L ALT 321 H (21-72) U/L Alkaline Phosphatase 195 H (38-126) U/L Total Protein 7.0 (6.3-8.2) g/dL Albumin 3.2 L (3.5-5.0) g/dL Amylase 122 H (30-110) U/L Lipase 79 (23-300) U/L Urine Color Urine Appearance (Clear) Urine pH (5.0-8.0) Ur Specific [place] (1.001-1.035) Urine Protein (Negative) Urine Glucose (UA) (Negative) Urine Ketones (Negative) Urine Blood (Negative) Urine Nitrite (Negative) Urine Bilirubin (Negative) Urine Urobilinogen (<2.0) mg/dL Ur Leukocyte Esterase (Negative) Amorphous Sediment (None) /hpf Urine Mucus (None) /hpf Stool Occult Blood (Negative) 07/21/18 07/21/18 07/21/18 Range/Units 12:10 13:08 13:08 WBC (3.8-10.6) k/uL RBC (4.30-5.90) m/uL Hgb (13.0-17.5) gm/dL Hct (39.0-53.0) % MCV (80.0-100.0) fL MCH (25.0-35.0) pg MCHC (31.0-37.0) g/dL RDW (11.5-15.5) % Plt Count (150-450) k/uL Neutrophils % % Lymphocytes % % Monocytes % % Eosinophils % % Basophils % % Neutrophils # (1.3-7.7) k/uL Lymphocytes # (1.0-4.8) k/uL Monocytes # (0-1.0) k/uL Eosinophils # (0-0.7) k/uL Basophils # (0-0.2) k/uL Hypochromasia PT 19.9 H (9.0-12.0) sec INR 2.2 H (<1.2) APTT 31.1 H (22.0-30.0) sec Sodium (137-145) mmol/L Potassium (3.5-5.1) mmol/L Chloride (98-107) mmol/L Carbon Dioxide (22-30) mmol/L Anion Gap mmol/L BUN (9-20) mg/dL Creatinine (0.66-1.25) mg/dL Est GFR (CKD-EPI)AfAm (>60 ml/min/1.73 sqM) Est GFR (CKD-EPI)NonAf (>60 ml/min/1.73 sqM) Glucose (74-99) mg/dL Plasma Lactic Acid [place] (0.7-2.0) mmol/L Calcium (8.4-10.2) mg/dL Total Bilirubin (0.2-1.3) mg/dL AST (17-59) U/L ALT (21-72) U/L Alkaline Phosphatase (38-126) U/L Total Protein (6.3-8.2) g/dL Albumin (3.5-5.0) g/dL Amylase (30-110) U/L Lipase (23-300) U/L Urine Color Yellow Urine Appearance Cloudy (Clear) Urine pH 5.5 (5.0-8.0) Ur Specific [place] 1.014 (1.001-1.035) Urine Protein 1+ H (Negative) Urine Glucose (UA) Negative (Negative) Urine Ketones Negative (Negative) Urine Blood Trace H (Negative) Urine Nitrite Negative (Negative) Urine Bilirubin Negative (Negative) Urine Urobilinogen <2.0 (<2.0) mg/dL Ur Leukocyte Esterase Negative (Negative) Amorphous Sediment Moderate H (None) /hpf Urine Mucus Rare H (None) /hpf Stool Occult Blood Positive (Negative) Critical Care Time Critical Care Time: Yes Total Critical Care Time: 35 Disposition Clinical Impression: Lactic acidosis, GI bleed, Diarrhea, Bilateral pleural effusion, Sepsis Disposition: ADMITTED IP TO THIS HOSP Referrals: Nia Collier MD [Primary Care Provider] - 1-2 days
[2018-07-21 12:30] LABS: Basophils % (A) 0 %; Eosinophils # (A) 0.1 k/uL (0-0.7); Eosinophils % (A) 0 %; HCT 41.8 % (39.0-53.0); HGB 12.9 gm/dL (13.0-17.5); Hypochromasia Moderate; Lymphocytes # (A) 0.5 k/uL (1.0-4.8); Lymphocytes % (A) 3 %; MCH 27.5 pg (25.0-35.0); MCHC 30.9 g/dL (31.0-37.0); MCV 89.2 fL (80.0-100.0); Mean Platelet Volume 8.6; Monocytes # (A) 0.7 k/uL (0-1.0); Monocytes % (A) 4 %; Neutrophils # (A) 13.9 k/uL (1.3-7.7); Neutrophils % (A) 91 %; Platelet Count 235 k/uL (150-450); RBC 4.69 m/uL (4.30-5.90); RDW 15.7 % (11.5-15.5); WBC 15.2 k/uL (3.8-10.6)
[2018-07-21 12:38] LABS: INR 2.2 (<1.2); Partial Thromboplastin Time 31.1 sec (22.0-30.0); Prothrombin Time 19.9 sec (9.0-12.0)
[2018-07-21 12:39] LABS: Albumin 3.2 g/dL (3.5-5.0); Calcium 8.7 mg/dL (8.4-10.2); Potassium 4.2 mmol/L (3.5-5.1); Total Bilirubin 0.9 mg/dL (0.2-1.3)
[2018-07-21] MEDS ORDERED: PIPERACILLIN-TAZOBACTAM 3.375 GM in DEXTROSE/WATER 1 50ML.BAG IVPB STA (12:43)
[2018-07-21] MEDS ORDERED: SODIUM CHLORIDE 0.9% 500 ML IV ONE (12:43)
[2018-07-21] MEDS ORDERED: SODIUM CHLORIDE 0.9% 1,000 ML IV ONE ×2 (12:43→21:00)
[2018-07-21 13:26] LABS: Amorphous Sediment,Urine Moderate /hpf; Appearance,Urine Cloudy (Clear); Bilirubin,Urine Negative (Negative); Blood,Urine Trace (Negative); Color,Urine Yellow; Glucose,Urine (UA) Negative (Negative); Ketones,Urine Negative (Negative); Leukocyte Esterase,Urine Negative (Negative); Mucus,Urine Rare /hpf; Nitrite,Urine Negative (Negative); PH, Urine 5.5 (5.0-8.0); Protein,Urine 1+ (Negative); Specific Gravity,Urine 1.014 (1.001-1.035); Urobilinogen,Urine <2.0 mg/dL (<2.0)
--- NOTE | 2018-07-21 14:32 | CT ---
EXAMINATION TYPE: CT abdomen pelvis w con DATE OF EXAM: 07/21/2018 COMPARISON: 06/11/2018 HISTORY: 82-year-old male with abdominal pain TECHNIQUE: Contiguous axial scanning of the abdomen and pelvis following administration of 100 ml Iso husam 300 IV contrast. Delayed images through the kidneys and coronal/sagittal reconstructions perform ed. CT DLP: 1454 mGycm Automated exposure control for dose reduction was used. FINDINGS: Artifacts from the patient's arms down by is side. Heart is borderline enlarged. Mild diffuse anasarca type changes. New small bilateral pleural effusions with adjacent atelectasis. There is a partially visualized roun ded density in the right mid to lower lung, referred axial image 1 that could represent a mass or pse udotumor such as from fluid along the minor fissure. Patchy groundglass in the lower lungs. Liver mildly enlarged at 18.6 cm. Gallbladder shows mild wall thickening, nonspecific, probably relat ed to fluid overload state. Adrenal glands, left kidney, splenic hilar splenule, and atrophic pancreas show no gross abnormality. Right renal calcifications suspected to be primarily vascular in etiology. Moderate to severe atherosclerotic calcifications within the abdominal aorta and iliac arteries. Flui d within the cecum and ascending colon and some mild circumferential wall thickening of mid to lower abdominal jejunal loops also containing prominent fluid. Fluid is also present within the rectum. No mesenteric or retroperitoneal lymphadenopathy identified. Moderate circumferential bladder wall thickening. Prostate gland is enlarged measuring 5.6 cm wide. P elvic phleboliths. No abnormal fluid collection in the pelvis or pelvic lymphadenopathy seen. Bones: Degenerative changes throughout the lumbar spine and visualized lower thoracic spine. IMPRESSION: 1. NEW SMALL BILATERAL PLEURAL EFFUSIONS, BORDERLINE CARDIOMEGALY, MILD DIFFUSE ANASARCA TYPE CHANGE. CORRELATE FOR FLUID OVERLOAD STATE. 2. PARTIALLY VISUALIZED ROUNDED AREA IN THE RIGHT MID TO LOWER LUNG ON THE FIRST SLICE. THIS COULD RE PRESENT A MASS OR PSEUDOTUMOR DUE TO FLUID WITHIN THE MINOR FISSURE. CONSIDER INITIAL ASSESSMENT WITH CHEST X-RAY. 3. PROMINENT FLUID WITHIN MILDLY THICKENED MID TO LOWER ABDOMINAL SMALL BOWEL LOOPS AND ADDITIONAL LI QUID STOOL THROUGHOUT THE COLON. CORRELATE FOR ENTERITIS/ENTEROCOLITIS. 4. PROSTATOMEGALY (5.6 CM WIDE). MODERATE CIRCUMFERENTIAL BLADDER WALL THICKENING COULD REPRESENT CHR ONIC BLADDER WALL HYPERTROPHY OR CYSTITIS.
--- NOTE | 2018-07-21 14:59 | XR ---
EXAMINATION TYPE: XR chest 2V DATE OF EXAM: 07/21/2018 COMPARISON: 11/07/2017 HISTORY: 82-year-old male difficulty breathing, shortness of breath TECHNIQUE: AP and lateral views FINDINGS: Heart mildly enlarged. Small effusions. Focal masslike opacity at the right greater than left midlung s. Diffuse interstitial prominence. Bilateral shoulder replacements. IMPRESSION: 1. Cardiomegaly and small effusions with diffuse interstitial densities. Correlate for possible mild CHF. 2. Masslike areas of consolidation in the right greater than left midlungs. This was present to some extent on the 11/07/2017 exam making loculated pleural fluid more likely than underlying neoplasm. Co ntrast enhanced CT chest will probably be needed for further evaluation.
--- NOTE | 2018-07-21 16:42 | P.CNPUL ---
History of Present Illness Consult date: 07/21/18 Chief complaint: Abdominal pain, lactic acidosis History of present illness: 82-year-old female patient, a very poor historian, extremity of Dr. Collier, came into the emergency department because a few days history of lower abdominal pain. The patient had some limited nausea. No emesis. He did have bowel movements that were liquidy and 2 bouts were noted in the emergency department. The stool was positive for Hemoccult. On admission, the patient lactic acid level of 7.2. His AST was 516, ALP was 321 and alkaline phosphatase was 191 month and he had a lipase of 79 and a amylase of 122. 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 There was a prominent fluids within mildly thickened mid to lower abdominal small bowel loops in addition to liquid stool throughout the colon. This raises the suspicion for enterocolitis. The patient also has a large prostate and moderate circumferential bladder wall thickening and a gallbladder showing mild wall thickening. The patient received 2 L of IV fluids. No hypotension. Abdominal pain has somewhat subsided. The patient is still having some tenderness and lower abdominal wall area. Note that the patient has chronic atrial fibrillation. Nevertheless,, the patient is anticoagulated and the patient is therapeutic on his PT/INR admission. Other comorbidities include COPD, congestion heart failure, coronary artery disease with previous myocardial infarction, hypothyroidism, chronic A. fib failure, diabetes mellitus and history of dementia. He has severe arthritis and bilateral shoulder replacements. No recent antibiotic intake. No travel history. He is covered with IV Zosyn as an empiric antibiotic coverage. Review of Systems Extremely poor historian. Unable to obtain useful information from this patient. Denies having any dysuria frequency or urgency. No chest pain. No shortness of breath. No focal neurological deficit at this point. The rest of the positive findings were old mentionable history of present illness. Past Medical History Past Medical History: Atrial Fibrillation, Chest Pain / Angina, Heart Failure, GERD/Reflux, Hearing Disorder / Deafness, Hyperlipidemia, Hypertension, Prostate Disorder Additional Past Medical History / Comment(s): Coronary artery disease, previous myocardial infarction, chronic atrial fibrillation, COPD, congestion heart failure with a previous ejection fraction 45-50% in addition to moderate to severe aortic valve sclerosis, mild AF, mild AR, moderate concentric left ventricular hypertrophy/hypertensive heart disease, diabetes mellitus, dementia , obstructive sleep apnea, hypothyroidism, BPH, osteoarthritis, previous bilateral knee replacement, previous bilateral shoulder replacement, pt does'nt have his hearing aids.communicated best with him by writting out questions, 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 History of Any Multi-Drug Resistant Organisms: None Reported Date of last positivie culture/infection: 05/18/18 MDRO Source:: [facility] Past Surgical History: Joint Replacement Additional Past Surgical History / Comment(s): bilateral knee replacements, bilateral rotator cuff repairs, left BKA -pt stated due to infection Past Anesthesia/Blood Transfusion Reactions: No Reported Reaction Smoking Status: Former smoker - Past Family History Father History Unknown: Yes Mother History Unknown: Yes Medications and Allergies Home Medications Medication Instructions Recorded Confirmed Type Warfarin Sodium [Coumadin] 2.5 mg PO DAILY 11/30/16 07/21/18 History Atorvastatin [Lipitor] 20 mg PO HS@2100 01/19/17 07/21/18 History Furosemide [Lasix] 40 mg PO DAILY@0600 01/19/17 07/21/18 History Metoprolol Tartrate [Lopressor] 50 mg PO BID@0900,2100 01/19/17 07/21/18 History Aspirin 81 mg PO DAILY 11/05/17 07/21/18 History Sennosides [Senna] 8.6 mg PO BID 11/05/17 07/21/18 History Omeprazole 40 mg PO DAILY #14 capsule. 06/11/18 07/21/18 Rx Levothyroxine Sodium 25 mcg PO DAILY 07/21/18 07/21/18 History Lisinopril [Zestril] 20 mg PO DAILY 07/21/18 07/21/18 History Sertraline HCl [Zoloft] 50 mg PO HS 07/21/18 07/21/18 History Sucralfate [Carafate] 1 gm PO QID 07/21/18 07/21/18 History Allergies Allergy/AdvReac Type Severity Reaction Status Date / Time No Known Allergies Allergy Verified 07/21/18 12:13 Physical Exam Vitals: Vital Signs Temp Pulse Resp BP Pulse Ox 07/21/18 16:20 96.7 F L 107 H 20 170/98 98 07/21/18 15:56 108 H 18 98 07/21/18 14:08 103 H 18 144/89 96 07/21/18 13:20 102 H 20 158/80 97 07/21/18 11:34 96 F L 58 L 20 148/83 Intake and Output 07/21/18 07/21/18 07/21/18 06:59 14:59 22:59 Other: Weight 79.379 kg GENERAL EXAM: Alert, active, comfortable in no apparent distress. Hard of hearing. HEAD: Normocephalic. EYES: Normal reaction of pupils, equal size. NOSE: Clear with pink turbinates. THROAT: No erythema or exudates. NECK: No masses, no difficulty in JVD. CHEST: No chest wall deformity. LUNGS: Equal air entry with no wheeze, rhonchi or dullness. Crackles in the right posterior base. Few crackles at lung bases bilaterally. CVS: Irregular S1 and S2 normal with no audible murmurs, irregular regular rhythm. ABDOMEN: No hepatosplenomegaly, normal bowel sounds, no guarding or rigidity. There is mild lower abdominal wall tenderness. No rebound tenderness. No guarding. Bowel sounds are hypoactive. SPINE: No scoliosis or deformity SKIN: No rashes CENTRAL NERVOUS SYSTEM: No focal deficits, tone is normal in all 4 extremities. The patient has dementia. He does not have good insight of his condition. He does not have any good recollection and memory on recent or old events. Extremities: There is no significant peripheral edema. No clubbing, no cyanosis. Peripheral pulses are intact. Results - Laboratory Findings CBC and BMP: 07/21/18 12:10 07/21/18 12:10 PT/INR, D-dimer PT 19.9 sec (9.0-12.0) H 07/21/18 12:10 INR 2.2 (<1.2) H 07/21/18 12:10 Abnormal lab findings: Abnormal Labs 07/21/18 07/21/18 07/21/18 12:10 12:10 12:10 WBC 15.2 H Hgb 12.9 L MCHC 30.9 L RDW 15.7 H Neutrophils # 13.9 H Lymphocytes # 0.5 L PT INR APTT Carbon Dioxide 18 L BUN 27 H Glucose 123 H Plasma Lactic Acid Néstor 7.2 H* AST 516 H ALT 321 H Alkaline Phosphatase 195 H Albumin 3.2 L Amylase 122 H Urine Protein Urine Blood Amorphous Sediment Urine Mucus 07/21/18 07/21/18 07/21/18 12:10 13:08 15:53 WBC Hgb MCHC RDW Neutrophils # Lymphocytes # PT 19.9 H INR 2.2 H APTT 31.1 H Carbon Dioxide BUN Glucose Plasma Lactic Acid Néstor 5.0 H* AST ALT Alkaline Phosphatase Albumin Amylase Urine Protein 1+ H Urine Blood Trace H Amorphous Sediment Moderate H Urine Mucus Rare H - Diagnostic Findings Chest x-ray: image reviewed Assessment and Plan Plan: 1 lower abdominal pain, acute, associated with lactic acidosis. Consider colitis which could be essentially infectious or ischemic. Rule out C. diff colitis. Rule out infectious or ischemic colitis as the patient has severe atherosclerotic heart disease and chronic atrial fibrillation which puts him at high risk of having complications such as ischemic colitis resulting into diarrhea and abdominal pain lactic acidosis. His abdomen is nonsurgical on at least on clinical grounds. No free air in the abdomen. 2 abnormal LFTs with dilated gallbladder. Rule out underlying cholecystitis 3 diarrhea with lactic acidosis. Rule out underlying C. 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 Hearing 11 severe arthritis with bilateral shoulder and knee replacement 12 BPH 13. Debility and impaired performance and functional status second above- mentioned comorbidities 14 pseudotumor within the right lung , patient has fluid within the right fissure that has been visualized on previous CAT scans and chest x-rays. 15 hypertension . Plan IV fluids and the patient was received 2 L and will maintain him on 100 mL an hour normal saline. Monitor lactic acid level. Empiric antibiotic coverage with IV Zosyn. Ultrasound the gallbladder. Surgical consultation. GI consultation. Monitor PT/INR and adjust dose of Coumadin accordingly. Transfer the patient intensive care for further monitoring. Watch for any signs of GI bleeding.. We'll continue to follow up in the intensive care unit. Check stool for C. diff colitis of recurrent diarrhea.
[2018-07-21 16:57] LABS: Glucose,Whole Blood 162 mg/dL (75-99)
[2018-07-21] MEDS ORDERED: METOPROLOL TARTRATE 50 MG TAB PO STA (17:37)
[2018-07-21] MEDS: SODIUM CHLORIDE 0.9% 1,000 ML IV SCH (17:50)
[2018-07-21 18:28] LABS: Basophils % (A) 0 %; Eosinophils # (A) 0.1 k/uL (0-0.7); Eosinophils % (A) 1 %; HCT 44.7 % (39.0-53.0); HGB 13.4 gm/dL (13.0-17.5); Hypochromasia Marked; Lymphocytes # (A) 0.5 k/uL (1.0-4.8); Lymphocytes % (A) 3 %; MCH 27.3 pg (25.0-35.0); MCV 91.1 fL (80.0-100.0); Mean Platelet Volume 8.2; Monocytes # (A) 0.5 k/uL (0-1.0); Monocytes % (A) 3 %; Neutrophils # (A) 13.7 k/uL (1.3-7.7); Neutrophils % (A) 92 %; Platelet Count 208 k/uL (150-450); RBC 4.91 m/uL (4.30-5.90); RDW 15.9 % (11.5-15.5); WBC 14.9 k/uL (3.8-10.6)
[2018-07-21] MEDS ORDERED: DILTIAZEM DRIP BOLUS FROM BAG 1 MG SOLN IV ONE (18:57)
[2018-07-21] MEDS: SUCRALFATE 1 GM TAB PO SCH ×2 (19:19→22:12)
[2018-07-21] MEDS: DILTIAZEM 50 MG in SODIUM CHLORIDE 0.9% 40 ML IV SCH (19:22)
--- NOTE | 2018-07-21 19:52 | US ---
EXAMINATION TYPE: US abdomen limited DATE OF EXAM: 07/21/2018 COMPARISON: NONE CLINICAL HISTORY: Pain. Elevated liver enzymes. EXAM MEASUREMENTS: Liver Length: 16.1 cm Gallbladder Wall: 0.5 cm CBD: 0.4 cm Right Kidney: 12.5 x 5.0 x 5.0 cm Pancreas: Echogenic tail obscured by overlying bowel gas. Liver: Lobulated heterogenic with echogenic areas seen throughout. Gallbladder: No stones seen thickened wall with pericholecystic fluid sen. Evidence for sonographic Cano's sign: No CBD: wnl Right Kidney: No hydronephrosis or masses seen IMPRESSION: Large gallbladder with mild wall thickening and pericholecystic fluid consistent with cho lecystitis. No gallstones identified. No dilated ducts.
[2018-07-21] MEDS: SERTRALINE 50 MG TAB PO SCH (22:12)
[2018-07-21] MEDS: METOPROLOL TARTRATE 50 MG TAB PO SCH (22:12)
[2018-07-21] MEDS: PANTOPRAZOLE 40 MG/10 ML VIAL IVP SCH (22:13)
[2018-07-21 23:35] LABS: Glucose,Whole Blood 145 mg/dL (75-99)
[2018-07-21 23:52] LABS: Basophils % (A) 0 %; Eosinophils % (A) 0 %; HCT 39.9 % (39.0-53.0); Hypochromasia Marked; Lymphocytes # (A) 1.1 k/uL (1.0-4.8); Lymphocytes % (A) 7 %; MCH 27.3 pg (25.0-35.0); MCHC 30.2 g/dL (31.0-37.0); MCV 90.5 fL (80.0-100.0); Mean Platelet Volume 8.8; Monocytes # (A) 0.6 k/uL (0-1.0); Monocytes % (A) 4 %; Neutrophils # (A) 14.4 k/uL (1.3-7.7); Neutrophils % (A) 89 %; Platelet Count 221 k/uL (150-450); RDW 15.7 % (11.5-15.5); WBC 16.2 k/uL (3.8-10.6)
--- NOTE | 2018-07-21 23:52 | XR ---
EXAMINATION TYPE: XR chest 1V portable DATE OF EXAM: 07/21/2018 COMPARISON: Today HISTORY: NG tube placement TECHNIQUE: Single frontal view of the chest is obtained. FINDINGS: There is nasogastric tube with the tip in the fundus of the stomach. There is bilateral sh oulder prosthesis. Heart is enlarged. There is mild pulmonary vascular congestion. There is some blun ting of the costophrenic angles. There is apparent loculated fluid in the right major fissure. There are chest leads. IMPRESSION: Nasogastric tube appears in good position. There is evidence of congestive heart failur e with pleural effusions. Heart and lungs are unchanged.
[2018-07-21 23:55] LABS: Albumin 2.4 g/dL (3.5-5.0); Potassium 4.3 mmol/L (3.5-5.1); Total Bilirubin 0.8 mg/dL (0.2-1.3); Total Protein 5.6 g/dL (6.3-8.2)
[2018-07-22] MEDS: DILTIAZEM 50 MG in SODIUM CHLORIDE 0.9% 40 ML IV SCH ×3 (00:11→22:15)
[2018-07-22] MEDS: PIPERACILLIN-TAZOBACTAM 3.375 GM in DEXTROSE/WATER 1 50ML.BAG IVPB SCH ×4 (01:38→23:50)
[2018-07-22 04:45] LABS: Albumin 3.2 g/dL (3.5-5.0); Calcium 8.2 mg/dL (8.4-10.2); Phosphorus 7.3 mg/dL (2.5-4.5); Total Bilirubin 1.2 mg/dL (0.2-1.3)
[2018-07-22 04:47] LABS: Basophils % (A) 0 %; Eosinophils % (A) 0 %; HCT 44.2 % (39.0-53.0); HGB 12.9 gm/dL (13.0-17.5); Hypochromasia Marked; Lymphocytes # (A) 0.7 k/uL (1.0-4.8); Lymphocytes % (A) 4 %; MCHC 29.2 g/dL (31.0-37.0); MCV 92.3 fL (80.0-100.0); Mean Platelet Volume 8.9; Monocytes # (A) 0.7 k/uL (0-1.0); Monocytes % (A) 4 %; Neutrophils # (A) 18.1 k/uL (1.3-7.7); Neutrophils % (A) 92 %; Platelet Count 210 k/uL (150-450); RBC 4.79 m/uL (4.30-5.90); RDW 15.7 % (11.5-15.5); WBC 19.6 k/uL (3.8-10.6)
[2018-07-22 05:09] LABS: Magnesium 1.7 mg/dL (1.6-2.3); Potassium 5.2 mmol/L (3.5-5.1)
[2018-07-22] MEDS: SODIUM CHLORIDE 0.9% 1,000 ML IV SCH (06:39)
[2018-07-22] MEDS: LEVOTHYROXINE 25 MCG TAB PO SCH (06:39)
[2018-07-22] MEDS ORDERED: Magnesium Replacement Protocol 1 EACH MISC MISCELLANE PRN (06:40)
[2018-07-22] MEDS: MAGNESIUM SULFATE-D5W PMX 1 GM in DEXTROSE/WATER 1 100ML.BAG IVPB SCH ×2 (06:56→10:56)
[2018-07-22] MEDS ORDERED: PANTOPRAZOLE 40 MG TABLET PO SCH (07:30)
--- NOTE | 2018-07-22 07:38 | XR ---
EXAMINATION TYPE: XR chest 1V portable DATE OF EXAM: 07/22/2018 CLINICAL HISTORY: Difficulty breathing progress study. TECHNIQUE: 2 AP portable upright views of the chest are obtained. COMPARISON: Chest x-ray from one day earlier and older studies. FINDINGS: Metallic artifact bilateral shoulder surgery is redemonstrated. A nasogastric tube is agai n seen. There is persistent cardiomegaly with atherosclerotic thoracic aorta. Central opacities bilaterally. There is persistent small right pleural effusion and suspected tiny left pleural effusion. No sizable pneumothorax is seen bilaterally. IMPRESSION: Overall stable findings, cardiomegaly with central vascular congestion and bilateral pe rihilar edema and/or infiltrates with small to tiny right greater than left pleural effusions all red emonstrated.
[2018-07-22] MEDS: PANTOPRAZOLE 40 MG/10 ML VIAL IVP SCH (08:44)
[2018-07-22] MEDS: METOPROLOL TARTRATE 50 MG TAB PO SCH ×2 (08:44→20:30)
[2018-07-22] MEDS: SUCRALFATE 1 GM TAB PO SCH (08:45)
[2018-07-22 08:51] LABS: INR 3.1 (<1.2); Prothrombin Time 27.5 sec (9.0-12.0)
[2018-07-22] MEDS ORDERED: ASPIRIN 81 MG PO SCH (09:00)
[2018-07-22] MEDS ORDERED: PHYTONADIONE 5 MG in SODIUM CHLORIDE 0.9% 50 ML IVPB STA (09:22)
[2018-07-22] MEDS: DEXTROSE 5% IN WATER 1,000 ML with SODIUM BICARB (1 MEQ/ML) 150 ML IV SCH ×2 (10:08→23:50)
--- NOTE | 2018-07-22 10:18 | XR ---
EXAMINATION TYPE: XR abdomen 1V DATE OF EXAM: 07/22/2018 10:11 AM CLINICAL HISTORY: Diffuse abdominal pain TECHNIQUE: Single supine KUB image of the abdomen is obtained. COMPARISON: CT abdomen and pelvis from yesterday. FINDINGS: There is new nasogastric tube projecting below diaphragm gas is seen in nondistended small bowel loops in the left abdomen. Vascular consultation overlies the pelvis. Dextroconvex scoliosis is redemonstrated. There is mild to moderate joint space loss in both hips. Right lung base is not incl uded. IMPRESSION: Persistent overall nonobstructive bowel gas pattern.
[2018-07-22 11:08] LABS: Amylase 63 U/L (30-110); Lipase 36 U/L (23-300)
--- NOTE | 2018-07-22 11:25 | P.HPIM ---
History of Present Illness H&P Date: 07/22/18 Chief Complaint: Abdominal pain and diarrhea This is an 82-year-old male patient of Dr. donnelly. Patient presented to the emergency room with complaints of abdominal pain and diarrhea patient also states he's been having episodes of emesis. Patient has a known past medical history history of atrial fibrillation which she takes Coumadin. Chest pain, heart failure GERD, hyperlipidemia, hypertension and prostate disorder. Patient is extremely hard of hearing and therefore a poor historian. CT of abdomen completed in emergency room showing a small bilateral pleural effusion, borderline cardiomegaly, mild diffuse tenderness Scaccia type II. Correlate for fluid overload state. Partially visualized rounded area in the right mid to lower lung on the first slice this could represent a mass or pseudotumor due to fluid within the minor seizure. Consider initial assessment chest x-ray. Prominent fluid with a mildly thickened mid to lower abdominal small bowel loops additional liquid stool throughout the colon. Correlate for enteritis or enterocolitis. Prostatomegaly. Chest x-ray completed showing masslike areas of consolidation the right greater than left midlung. This was present to some extent on the 11/07/2017 exam making loculated pleural fluid more likely than underlying neoplasm. CT completed showing atrial fibrillation with rapid ventricular response with premature ventricular or aberrantly conducted complexes. Patient was started on Cardizem drip. Initial WBC 15.2. Lactic acid 6.4. Lactic acid increasing to 10.4. Patient received 4 L of IV fluid per critical care team. Repeat lactic acid 5.7. AST 318 ALT 263 and alkaline phosphatase 152. INR is 3.1 patient admitted to the intensive care unit and Dr. Calzada per critical care consulted. Dr. Whaley per GI service is consulted. Dr. Shahid per surgical service is consulted. Per nursing staff patient did have episodes of approximately 150 mL of bloody stool this a.m. Discussed case at bedside with Dr. Calzada per critical care. Concerns for ischemic colitis. Orders placed to reverse Coumadin with vitamin K. Bicarb gtt initiated per critical care. Abdominal x-ray ordered per critical care. Surgical services paged per nursing staff. Review of Systems please refer to HPI otherwise unremarkable Past Medical History Past Medical History: Atrial Fibrillation, Chest Pain / Angina, Heart Failure, GERD/Reflux, Hearing Disorder / Deafness, Hyperlipidemia, Hypertension, Prostate Disorder Additional Past Medical History / Comment(s): Coronary artery disease, previous myocardial infarction, chronic atrial fibrillation, COPD, congestion heart failure with a previous ejection fraction 45-50% in addition to moderate to severe aortic valve sclerosis, mild AF, mild AR, moderate concentric left ventricular hypertrophy/hypertensive heart disease, diabetes mellitus, dementia , obstructive sleep apnea, hypothyroidism, BPH, osteoarthritis, previous bilateral knee replacement, previous bilateral shoulder replacement, pt does'nt have his hearing aids.communicated best with him by writting out questions, 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 History of Any Multi-Drug Resistant Organisms: None Reported Date of last positivie culture/infection: 05/18/18 MDRO Source:: [facility] Past Surgical History: Joint Replacement Additional Past Surgical History / Comment(s): bilateral knee replacements, bilateral rotator cuff repairs, left BKA -pt stated due to infection Past Anesthesia/Blood Transfusion Reactions: No Reported Reaction Smoking Status: Former smoker - Past Family History Father History Unknown: Yes Mother History Unknown: Yes Medications and Allergies Home Medications Medication Instructions Recorded Confirmed Type Warfarin Sodium [Coumadin] 2.5 mg PO DAILY 11/30/16 07/21/18 History Atorvastatin [Lipitor] 20 mg PO HS@2100 01/19/17 07/21/18 History Furosemide [Lasix] 40 mg PO DAILY@0600 01/19/17 07/21/18 History Metoprolol Tartrate [Lopressor] 50 mg PO BID@0900,2100 01/19/17 07/21/18 History Aspirin 81 mg PO DAILY 11/05/17 07/21/18 History Sennosides [Senna] 8.6 mg PO BID 11/05/17 07/21/18 History Omeprazole 40 mg PO DAILY #14 capsule. 06/11/18 07/21/18 Rx Levothyroxine Sodium 25 mcg PO DAILY 07/21/18 07/21/18 History Lisinopril [Zestril] 20 mg PO DAILY 07/21/18 07/21/18 History Sertraline HCl [Zoloft] 50 mg PO HS 07/21/18 07/21/18 History Sucralfate [Carafate] 1 gm PO QID 07/21/18 07/21/18 History Allergies Allergy/AdvReac Type Severity Reaction Status Date / Time No Known Allergies Allergy Verified 07/21/18 12:13 Physical Exam Vitals: Vital Signs Temp Pulse Resp BP Pulse Ox 07/22/18 10:00 70 22 135/80 95 07/22/18 09:30 78 21 147/88 97 07/22/18 09:00 93 20 157/69 96 07/22/18 08:30 80 22 177/87 97 07/22/18 08:00 97.0 F L 84 38 H 148/83 07/22/18 07:30 84 21 163/86 98 07/22/18 07:00 91 21 152/86 98 07/22/18 06:30 89 21 150/83 97 07/22/18 06:00 84 24 150/87 98 07/22/18 05:30 93 25 H 177/93 98 07/22/18 05:00 89 28 H 175/92 98 07/22/18 04:30 79 24 163/92 97 07/22/18 04:00 97.6 F 92 22 186/93 98 07/22/18 03:30 81 24 182/92 96 07/22/18 03:00 82 26 H 189/99 96 07/22/18 02:30 89 24 173/90 95 07/22/18 02:00 87 26 H 180/89 94 L 07/22/18 01:45 94 28 H 93 L 07/22/18 01:30 101 H 26 H 179/101 92 L 07/22/18 01:15 100 26 H 176/106 92 L 07/22/18 01:10 92 28 H 176/106 93 L 07/22/18 01:00 97 30 H 178/112 92 L 07/22/18 00:50 85 28 H 178/112 93 L 07/22/18 00:40 93 37 H 215/110 91 L 07/22/18 00:30 86 32 H 209/110 87 L 07/22/18 00:20 92 32 H 209/110 93 L 07/22/18 00:10 108 H 24 92 L 07/22/18 00:00 94 30 H 207/119 07/21/18 23:50 105 H 36 H 88 L 07/21/18 23:40 94 41 H 94 L 07/21/18 23:33 109 H 38 H 199/119 96 07/21/18 23:30 92 37 H 137/82 97 09/13/18 23:20 106 H 28 H 137/82 95 07/21/18 23:10 85 24 137/82 92 L 07/21/18 23:00 84 24 136/85 93 L 07/21/18 22:50 93 24 136/85 96 18 22:40 93 24 136/85 95 18 22:30 81 24 145/87 95 18 22:20 85 19 145/87 96 07/21/18 22:10 89 19 145/87 96 07/21/18 22:00 86 17 141/85 96 07/21/18 21:50 87 18 141/85 95 07/21/18 21:40 83 18 141/85 95 07/21/18 21:30 94 19 160/84 94 L 07/21/18 21:20 105 H 20 160/84 94 L 07/21/18 21:10 85 18 160/84 91 L 07/21/18 21:00 96 18 160/84 92 L 07/21/18 20:50 93 18 156/86 91 L 07/21/18 20:40 89 17 156/86 92 L 18 20:30 92 18 156/86 93 L 07/21/18 20:20 95 18 146/95 95 07/21/18 20:10 107 H 24 146/95 94 L 07/21/18 20:00 97.6 F 92 18 146/95 93 L 18 19:50 99 17 155/82 95 07/21/18 19:40 94 18 117/95 95 07/21/18 19:30 106 H 19 117/95 94 L 07/21/18 19:20 128 H 14 135/99 92 L 07/21/18 19:10 117 H 19 195/109 96 07/21/18 19:00 130 H 16 195/109 97 07/21/18 18:50 116 H 18 165/108 97 07/21/18 18:40 120 H 21 152/99 98 07/21/18 18:30 114 H 19 152/99 98 07/21/18 18:20 122 H 26 H 184/94 96 07/21/18 18:10 113 H 16 182/100 96 07/21/18 18:00 107 H 18 182/100 96 07/21/18 17:50 105 H 11 L 167/92 97 07/21/18 17:40 117 H 20 167/92 96 07/21/18 17:30 102 H 24 167/92 89 L 07/21/18 17:20 109 H 18 131/86 91 L 07/21/18 17:10 129 H 131/86 85 L 07/21/18 17:00 127 H 131/86 90 L 07/21/18 16:55 96.8 F L 118 H 20 90 L 07/21/18 16:20 96.7 F L 107 H 20 170/98 98 07/21/18 15:56 108 H 18 98 07/21/18 14:08 103 H 18 144/89 96 07/21/18 13:20 102 H 20 158/80 97 07/21/18 11:34 96 F L 58 L 20 148/83 Intake and Output 07/21/18 07/22/18 07/22/18 22:59 06:59 14:59 Intake Total 2164.333 497.25 250 Output Total 133 765 270 Balance 2031.333 -267.75 -20 Intake: IV 1550 487.5 250 Piperacillin-Tazobactam 3 50 37.5 50 .375 gm In Dextrose/Water 1 50ml.bag @ 12.5 mls/hr IVPB Q8HR [facility] Rx#: [id number] Sodium Chloride 0.9% 1, 1500 450 200 000 ml @ 100 mls/hr IV . Q10H [facility] Rx#:[id number] Intake, IV Titration 14.333 9.75 Amount Diltiazem 50 mg In Sodium 14.333 9.75 Chloride 0.9% 40 ml @ Per Protocol IV .Q0M [facility] Rx#:[id number] Oral 600 Output: Gastric Drainage 300 Urine 133 265 120 Stool 150 Emesis 200 Other: Voiding Method Indwelling Catheter Indwelling Catheter Indwelling Catheter # Bowel Movements 0 0 1 Weight 81.3 kg 81.3 kg Head normocephalic Neck supple Lungs clear to auscultation bilaterally no wheezing or crackles Heart regular rate and rhythm S1-S2, no rub or gallop Abdomen slightly distended. Diffuse tenderness throughout abdomen. Hypo-bowel sounds Extremities no edema Neuro alert and orientated to 3 Results CBC & Chem 7: 07/22/18 03:56 07/22/18 03:56 Labs: Abnormal Lab Results - Last 24 Hours (Table) 07/21/18 07/21/18 07/21/18 Range/Units 12:10 12:10 12:10 WBC 15.2 H (3.8-10.6) k/uL Hgb 12.9 L (13.0-17.5) gm/dL MCHC 30.9 L (31.0-37.0) g/dL RDW 15.7 H (11.5-15.5) % Neutrophils # 13.9 H (1.3-7.7) k/uL Lymphocytes # 0.5 L (1.0-4.8) k/uL PT (9.0-12.0) sec INR (<1.2) APTT (22.0-30.0) sec Potassium (3.5-5.1) mmol/L Chloride (98-107) mmol/L Carbon Dioxide 18 L (22-30) mmol/L BUN 27 H (9-20) mg/dL Creatinine (0.66-1.25) mg/dL Glucose 123 H (74-99) mg/dL POC Glucose (mg/dL) (75-99) mg/dL Plasma Lactic Acid Néstor 7.2 H* (0.7-2.0) mmol/L Calcium (8.4-10.2) mg/dL Phosphorus (2.5-4.5) mg/dL AST 516 H (17-59) U/L ALT 321 H (21-72) U/L Alkaline Phosphatase 195 H (38-126) U/L Total Protein (6.3-8.2) g/dL Albumin 3.2 L (3.5-5.0) g/dL Amylase 122 H (30-110) U/L Urine Protein (Negative) Urine Blood (Negative) Amorphous Sediment (None) /hpf Urine Mucus (None) /hpf 07/21/18 07/21/18 07/21/18 Range/Units 12:10 13:08 15:53 WBC (3.8-10.6) k/uL Hgb (13.0-17.5) gm/dL MCHC (31.0-37.0) g/dL RDW (11.5-15.5) % Neutrophils # (1.3-7.7) k/uL Lymphocytes # (1.0-4.8) k/uL PT 19.9 H (9.0-12.0) sec INR 2.2 H (<1.2) APTT 31.1 H (22.0-30.0) sec Potassium (3.5-5.1) mmol/L Chloride (98-107) mmol/L Carbon Dioxide (22-30) mmol/L BUN (9-20) mg/dL Creatinine (0.66-1.25) mg/dL Glucose (74-99) mg/dL POC Glucose (mg/dL) (75-99) mg/dL Plasma Lactic Acid Néstor 5.0 H* (0.7-2.0) mmol/L Calcium (8.4-10.2) mg/dL Phosphorus (2.5-4.5) mg/dL AST (17-59) U/L ALT (21-72) U/L Alkaline Phosphatase (38-126) U/L Total Protein (6.3-8.2) g/dL Albumin (3.5-5.0) g/dL Amylase (30-110) U/L Urine Protein 1+ H (Negative) Urine Blood Trace H (Negative) Amorphous Sediment Moderate H (None) /hpf Urine Mucus Rare H (None) /hpf 07/21/18 07/21/18 07/21/18 Range/Units 16:56 17:59 23:30 WBC 14.9 H 16.2 H (3.8-10.6) k/uL Hgb 12.0 L (13.0-17.5) gm/dL MCHC 30.0 L 30.2 L (31.0-37.0) g/dL RDW 15.9 H 15.7 H (11.5-15.5) % Neutrophils # 13.7 H 14.4 H (1.3-7.7) k/uL Lymphocytes # 0.5 L (1.0-4.8) k/uL PT (9.0-12.0) sec INR (<1.2) APTT (22.0-30.0) sec Potassium (3.5-5.1) mmol/L Chloride (98-107) mmol/L Carbon Dioxide (22-30) mmol/L BUN (9-20) mg/dL Creatinine (0.66-1.25) mg/dL Glucose (74-99) mg/dL POC Glucose (mg/dL) 162 H (75-99) mg/dL Plasma Lactic Acid Néstor (0.7-2.0) mmol/L Calcium (8.4-10.2) mg/dL Phosphorus (2.5-4.5) mg/dL AST (17-59) U/L ALT (21-72) U/L Alkaline Phosphatase (38-126) U/L Total Protein (6.3-8.2) g/dL Albumin (3.5-5.0) g/dL Amylase (30-110) U/L Urine Protein (Negative) Urine Blood (Negative) Amorphous Sediment (None) /hpf Urine Mucus (None) /hpf 07/21/18 07/21/18 07/22/18 Range/Units 23:30 23:34 00:10 WBC (3.8-10.6) k/uL Hgb (13.0-17.5) gm/dL MCHC (31.0-37.0) g/dL RDW (11.5-15.5) % Neutrophils # (1.3-7.7) k/uL Lymphocytes # (1.0-4.8) k/uL PT (9.0-12.0) sec INR (<1.2) APTT (22.0-30.0) sec Potassium (3.5-5.1) mmol/L Chloride 112 H (98-107) mmol/L Carbon Dioxide 17 L (22-30) mmol/L BUN 30 H (9-20) mg/dL Creatinine 1.32 H (0.66-1.25) mg/dL Glucose 144 H (74-99) mg/dL POC Glucose (mg/dL) 145 H (75-99) mg/dL Plasma Lactic Acid Néstor 6.4 H* (0.7-2.0) mmol/L Calcium 7.0 L (8.4-10.2) mg/dL Phosphorus (2.5-4.5) mg/dL AST 288 H (17-59) U/L ALT 217 H (21-72) U/L Alkaline Phosphatase 132 H (38-126) U/L Total Protein 5.6 L (6.3-8.2) g/dL Albumin 2.4 L (3.5-5.0) g/dL Amylase (30-110) U/L Urine Protein (Negative) Urine Blood (Negative) Amorphous Sediment (None) /hpf Urine Mucus (None) /hpf 07/22/18 07/22/18 07/22/18 Range/Units 03:56 03:56 03:56 WBC 19.6 H (3.8-10.6) k/uL Hgb 12.9 L (13.0-17.5) gm/dL MCHC 29.2 L (31.0-37.0) g/dL RDW 15.7 H (11.5-15.5) % Neutrophils # 18.1 H (1.3-7.7) k/uL Lymphocytes # 0.7 L (1.0-4.8) k/uL PT (9.0-12.0) sec INR (<1.2) APTT (22.0-30.0) sec Potassium 5.2 H (3.5-5.1) mmol/L Chloride (98-107) mmol/L Carbon Dioxide 11 L (22-30) mmol/L BUN 35 H (9-20) mg/dL Creatinine 1.73 H (0.66-1.25) mg/dL Glucose 164 H (74-99) mg/dL POC Glucose (mg/dL) (75-99) mg/dL Plasma Lactic Acid Néstor 10.4 H* (0.7-2.0) mmol/L Calcium 8.2 L (8.4-10.2) mg/dL Phosphorus 7.3 H (2.5-4.5) mg/dL AST 318 H (17-59) U/L ALT 263 H (21-72) U/L Alkaline Phosphatase 152 H (38-126) U/L Total Protein (6.3-8.2) g/dL Albumin 3.2 L (3.5-5.0) g/dL Amylase (30-110) U/L Urine Protein (Negative) Urine Blood (Negative) Amorphous Sediment (None) /hpf Urine Mucus (None) /hpf 07/22/18 07/22/18 Range/Units 08:28 08:28 WBC (3.8-10.6) k/uL Hgb (13.0-17.5) gm/dL MCHC (31.0-37.0) g/dL RDW (11.5-15.5) % Neutrophils # (1.3-7.7) k/uL Lymphocytes # (1.0-4.8) k/uL PT 27.5 H (9.0-12.0) sec INR 3.1 H (<1.2) APTT (22.0-30.0) sec Potassium (3.5-5.1) mmol/L Chloride (98-107) mmol/L Carbon Dioxide (22-30) mmol/L BUN (9-20) mg/dL Creatinine (0.66-1.25) mg/dL Glucose (74-99) mg/dL POC Glucose (mg/dL) (75-99) mg/dL Plasma Lactic Acid Néstor 5.7 H* (0.7-2.0) mmol/L Calcium (8.4-10.2) mg/dL Phosphorus (2.5-4.5) mg/dL AST (17-59) U/L ALT (21-72) U/L Alkaline Phosphatase (38-126) U/L Total Protein (6.3-8.2) g/dL Albumin (3.5-5.0) g/dL Amylase (30-110) U/L Urine Protein (Negative) Urine Blood (Negative) Amorphous Sediment (None) /hpf Urine Mucus (None) /hpf Thrombosis Risk Factor Assmnt - Choose All That Apply Each Factor Represents 1 point: Sepsis (< 1month) Each Risk Factor Represents 3 Points: Age 75 years or older Other congenital or acquired thrombophilia - If yes, enter type in comment: No Thrombosis Risk Factor Assessment Total Risk Factor Score: 4 Thrombosis Risk Factor Assessment Level: Moderate Risk Assessment and Plan Assessment: 1. lower abdominal pain, acute, associated with lactic acidosis. CT abdomen completed showing prominent fluid within mildly thickened mid to lower abdominal small bowel loops been additional liquid stool throughout the colon. Correlate for enteritis and enterocolitis. Lactic acid elevated as high as 10.4. Patient did receive 4 L of IV fluid per critical care. Repeat lactic 5.6. Per nursing staff patient did have episode of approximately 150 mL of bloody stool this a.m.. GI and surgical services consulted. Abdominal x-ray completed per critical care showing persistent overall nonobstructive bowel gas pattern. Bicarb drip has been ordered per critical care vitamin K order to reverse Coumadin. Patient currently on Zosyn for antibiotic. WBC increasing to 19.6. Critical care team following closely. 2. abnormal LFTs with dilated gallbladder. Abdominal ultrasound completed showing large gallbladder mild wall thickening and pericholecystic fluid consistent with cholecystitis. No gallstones identified no dilated ducts. Dr. Shahid for surgical service is consulted. AST increasing to 318 ALT increasing to 263 and alkaline phosphatase 152 3. diarrhea with lactic acidosis. C. diff negative 4. leukocytosis and lactic acidosis. Initial lactic acid 7.2. Lactic acid increasing to as high as 10.4. Patient received 4 L of IV fluid per critical care. This a.m. lactic acid 5.7. Sepsis protocol initiated. Currently on Zosyn for antibiotic 5. history of coronary artery disease 6. congestion heart failure with ejection fraction of 45-50% 7. chronic atrial fibrillation maintained on long-term medical condition with warfarin with therapeutic PT/INR. Coumadin on hold due to GI bleed. INR 3.1. Vit K has been ordered per critical care 8. 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 History of dementia 10. History of Hearing 11. 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 History of BPH 13. Debility and impaired performance and functional status second above- mentioned comorbidities 14. pseudotumor within the right lung , patient has fluid within the right fissure that has been visualized on previous CAT scans and chest x-rays. 15. History of essential hypertension. 16. Per nursing staff concerns for aspiration. NG tube was placed to LIS. X- ray obtained showing overall stable findings, cardiomegaly with central vascular congestion and bilateral perihilar edema and/or infiltrate is small to tiny right greater than left pleural effusions are redemonstrated. Dr. Calzada following for pulmonary and critical care. Patient currently on Zosyn 17. Atrial fibrillation with rapid ventricular response. Patient does have history of A. fib and was on Coumadin.. Patient started on Cardizem drip. Due to possible surgical intervention. Coumadin has been reversed with vitamin K per critical care team. Heart rate currently in the 70s and 80s. 18. Low urine output. Patient was given 4 L of fluid throughout night. Critical care team following 19. Acute kidney injury. Creatinine increasing to 1.73 and bun 35. patient did received fluid resuscitation per sepsis protocol per critical care. CT to monitor closely DVT prophylaxis SCDs and GI prophylaxis Protonix Time with Patient: Greater than 30 (Greater than 60% of the total time spent in counseling and coordination of care. I performed an examination of the patient and discussed their management with the Nurse Practitioner. I have reviewed the Nurse Practitioner's notes and agree with the documented findings and plan of care)
[2018-07-22 12:32] LABS: Glucose,Whole Blood 193 mg/dL (75-99)
[2018-07-22] MEDS: INSULIN ASPART 100 UNIT/ML 1 ML 10 ML VIAL SQ SCH ×3 (12:42→23:56)
--- NOTE | 2018-07-22 12:50 | P.CONS ---
History of Present Illness - Reason for Consult Consult date: 07/22/18 Gi bleed Requesting physician: Nancy Oglesby - Chief Complaint Abdominal pain - History of Present Illness 82-year-old gentleman patient of Dr. Dr. Collier with a past medical history atrial fibrillation warfarin monitoring, deafness, hypertension, hyperlipidemia , heart failure, VT, CHF, aortic valve sclerosis, diabetes, COPD. Patient presented with acute lower abdominal pain bilateral lower quadrants with positive FOBT. Reports of blood tinged bowel movements. Elevated lactic acid 7.2. Received IV hydration increased to 10.4 presently 5.7. NG tube inserted with bilious return. Nursing reports no bloody bowel movement. C. diff negative. CT abdomen and pelvis moderate to severe atherosclerotic calcifications within the abdominal aorta and iliac arteries. Fluid within the cecum and ascending colon with mild circumferential wall thickening of the mid to lower abdominal jejunal loops. Correlate for enteritis enterocolitis. White count 15.2 on admission and increased to 19.6 today. Hemoglobin 12.9. Platelet 210. INR 3.1. Afebrile. No reports of hypotension. Review of Systems Constitutional: Denies fever, chills, sweats, weight gain, or loss. HEENT: Negative for migraines, blurred vision or loss, earaches, drainage, tinnitus, oral mucosal lesions, dysphagia, or odynophagia. History of deafness. Cardiac: Negative for chest pain, arrhythmias, or palpitation. Respiratory: Negative for shortness of breath, hemoptysis, cough, or sputum production. Gastrointestinal: See HPI for pertinent findings. Genitourinary: Negative for hematuria, urgency, frequency, polyuria, dysuria, or penile discharge. Musculoskeletal: Negative for muscle aches, swelling, arthritis, and arthralgias. Neurologic: Negative for stroke or TIA. Endocrine: Negative for thyroid problems. Skin: Negative for rash or itching. Psychiatric: Negative history for depression and anxiety Past Medical History Past Medical History: Atrial Fibrillation, Chest Pain / Angina, Heart Failure, GERD/Reflux, Hearing Disorder / Deafness, Hyperlipidemia, Hypertension, Prostate Disorder Additional Past Medical History / Comment(s): Coronary artery disease, previous myocardial infarction, chronic atrial fibrillation, COPD, congestion heart failure with a previous ejection fraction 45-50% in addition to moderate to severe aortic valve sclerosis, mild AF, mild AR, moderate concentric left ventricular hypertrophy/hypertensive heart disease, diabetes mellitus, dementia , obstructive sleep apnea, hypothyroidism, BPH, osteoarthritis, previous bilateral knee replacement, previous bilateral shoulder replacement, pt does'nt have his hearing aids.communicated best with him by writting out questions, 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 History of Any Multi-Drug Resistant Organisms: None Reported Year Discovered:: 05/18/18 MDRO Source:: [facility] Past Surgical History: Joint Replacement Additional Past Surgical History / Comment(s): bilateral knee replacements, bilateral rotator cuff repairs, left BKA -pt stated due to infection Past Anesthesia/Blood Transfusion Reactions: No Reported Reaction Smoking Status: Former smoker - Past Family History Father History Unknown: Yes Mother History Unknown: Yes Medications and Allergies Home Medications Medication Instructions Recorded Confirmed Type Warfarin Sodium [Coumadin] 2.5 mg PO DAILY 11/30/16 07/21/18 History Atorvastatin [Lipitor] 20 mg PO HS@2100 01/19/17 07/21/18 History Furosemide [Lasix] 40 mg PO DAILY@0600 01/19/17 07/21/18 History Metoprolol Tartrate [Lopressor] 50 mg PO BID@0900,2100 01/19/17 07/21/18 History Aspirin 81 mg PO DAILY 11/05/17 07/21/18 History Sennosides [Senna] 8.6 mg PO BID 11/05/17 07/21/18 History Omeprazole 40 mg PO DAILY #14 capsule. 06/11/18 07/21/18 Rx Levothyroxine Sodium 25 mcg PO DAILY 07/21/18 07/21/18 History Lisinopril [Zestril] 20 mg PO DAILY 07/21/18 07/21/18 History Sertraline HCl [Zoloft] 50 mg PO HS 07/21/18 07/21/18 History Sucralfate [Carafate] 1 gm PO QID 07/21/18 07/21/18 History Allergies Allergy/AdvReac Type Severity Reaction Status Date / Time No Known Allergies Allergy Verified 07/21/18 12:13 Physical Exam Vitals: Vital Signs Temp Pulse Resp BP Pulse Ox 07/22/18 12:00 97.4 F L 83 31 H 140/85 88 L 07/22/18 11:30 74 24 158/83 93 L 09/14/18 11:00 79 23 143/93 93 L 1418 10:30 73 12 135/82 95 1418 10:00 70 22 135/80 95 18 09:30 78 21 147/88 97 1418 09:00 93 20 157/69 96 18 08:30 80 22 177/87 97 1418 08:00 97.0 F L 84 38 H 148/83 07/22/18 07:30 84 21 163/86 98 1418 07:00 91 21 152/86 98 07/22/18 06:30 89 21 150/83 97 1418 06:00 84 24 150/87 98 07/22/18 05:30 93 25 H 177/93 98 07/22/18 05:00 89 28 H 175/92 98 07/22/18 04:30 79 24 163/92 97 1418 04:00 97.6 F 92 22 186/93 98 07/22/18 03:30 81 24 182/92 96 07/22/18 03:00 82 26 H 189/99 96 07/22/18 02:30 89 24 173/90 95 18 02:00 87 26 H 180/89 94 L 07/22/18 01:45 94 28 H 93 L 07/22/18 01:30 101 H 26 H 179/101 92 L 18 01:15 100 26 H 176/106 92 L 18 01:10 92 28 H 176/106 93 L 07/22/18 01:00 97 30 H 178/112 92 L 07/22/18 00:50 85 28 H 178/112 93 L 18 00:40 93 37 H 215/110 91 L 18 00:30 86 32 H 209/110 87 L 18 00:20 92 32 H 209/110 93 L 18 00:10 108 H 24 92 L 18 00:00 94 30 H 207/119 07/21/18 23:50 105 H 36 H 88 L 18 23:40 94 41 H 94 L 18 23:33 109 H 38 H 199/119 96 18 23:30 92 37 H 137/82 97 09/13/18 23:20 106 H 28 H 137/82 95 07/21/18 23:10 85 24 137/82 92 L 07/21/18 23:00 84 24 136/85 93 L 07/21/18 22:50 93 24 136/85 96 18 22:40 93 24 136/85 95 18 22:30 81 24 145/87 95 18 22:20 85 19 145/87 96 07/21/18 22:10 89 19 145/87 96 07/21/18 22:00 86 17 141/85 96 07/21/18 21:50 87 18 141/85 95 07/21/18 21:40 83 18 141/85 95 07/21/18 21:30 94 19 160/84 94 L 07/21/18 21:20 105 H 20 160/84 94 L 07/21/18 21:10 85 18 160/84 91 L 07/21/18 21:00 96 18 160/84 92 L 07/21/18 20:50 93 18 156/86 91 L 07/21/18 20:40 89 17 156/86 92 L 18 20:30 92 18 156/86 93 L 07/21/18 20:20 95 18 146/95 95 07/21/18 20:10 107 H 24 146/95 94 L 07/21/18 20:00 97.6 F 92 18 146/95 93 L 18 19:50 99 17 155/82 95 07/21/18 19:40 94 18 117/95 95 07/21/18 19:30 106 H 19 117/95 94 L 07/21/18 19:20 128 H 14 135/99 92 L 07/21/18 19:10 117 H 19 195/109 96 07/21/18 19:00 130 H 16 195/109 97 07/21/18 18:50 116 H 18 165/108 97 07/21/18 18:40 120 H 21 152/99 98 07/21/18 18:30 114 H 19 152/99 98 07/21/18 18:20 122 H 26 H 184/94 96 07/21/18 18:10 113 H 16 182/100 96 07/21/18 18:00 107 H 18 182/100 96 07/21/18 17:50 105 H 11 L 167/92 97 07/21/18 17:40 117 H 20 167/92 96 07/21/18 17:30 102 H 24 167/92 89 L 07/21/18 17:20 109 H 18 131/86 91 L 07/21/18 17:10 129 H 131/86 85 L 07/21/18 17:00 127 H 131/86 90 L 07/21/18 16:55 96.8 F L 118 H 20 90 L 07/21/18 16:20 96.7 F L 107 H 20 170/98 98 07/21/18 15:56 108 H 18 98 07/21/18 14:08 103 H 18 144/89 96 07/21/18 13:20 102 H 20 158/80 97 Intake and Output 07/21/18 07/22/18 07/22/18 22:59 06:59 14:59 Intake Total 2164.333 497.25 510 Output Total 133 765 382 Balance 2031.333 -267.75 128 Intake: IV 1550 487.5 360 Dextrose 5% in Water 1, 100 000 ml @ 100 mls/hr IV . [id number] FOSTER with Sodium Bicarb (1 Meq/ml) 150 ml Rx#:[id number] Piperacillin-Tazobactam 3 50 37.5 50 .375 gm In Dextrose/Water 1 50ml.bag @ 12.5 mls/hr IVPB Q8HR FOSTER Rx#: [id number] Sodium Chloride 0.9% 1, 1500 450 210 000 ml @ 100 mls/hr IV . Q10H FOSTER Rx#:[id number] Intake, IV Titration 14.333 9.75 150 Amount Diltiazem 50 mg In Sodium 14.333 9.75 50 Chloride 0.9% 40 ml @ Per Protocol IV .Q0M FOSTER Rx#:[id number] Magnesium Sulfate-D5w Pmx 100 1 gm In Dextrose/Water 1 100ml.bag @ 100 mls/hr IVPB Q1H FOSTER Rx#: [id number] Oral 600 Output: Gastric Drainage 300 50 Urine 133 265 180 Stool 152 Emesis 200 Other: Voiding Method Indwelling Catheter Indwelling Catheter Indwelling Catheter # Bowel Movements 0 0 1 Weight 81.3 kg 81.3 kg General appearance: The patient is alert, oriented, in no acute distress. Hard of hearing. HET: Head is normocephalic and atraumatic. Pupils are equal and reactive. Oropharynx is clear without lesions. NG tube with bilious fluid. Neck: Supple without lymphadenopathy. Trachea midline. Heart: S1 S2. Regular rate and rhythm. Lungs: No crackles or wheezes are heard. Abdomen: Soft, moderate tenderness bilateral lower abdomen greater than right and left with rebound and guarding. Bowel sounds hypoactive. Extremities: BKA. Normal skin color and turgor. No cyanosis, rash, ulceration , clubbing, or edema. Radial and pedal pulses are 2/4 bilaterally. Espitia with clear jas urine. Neurological: No focal deficits. Strength and sensation are grossly intact. Results CBC & Chem 7: 07/22/18 03:56 07/22/18 03:56 Labs: Abnormal Lab Results - Last 24 Hours (Table) 07/21/18 07/21/18 07/21/18 Range/Units 13:08 15:53 16:56 WBC (3.8-10.6) k/uL Hgb (13.0-17.5) gm/dL MCHC (31.0-37.0) g/dL RDW (11.5-15.5) % Neutrophils # (1.3-7.7) k/uL Lymphocytes # (1.0-4.8) k/uL PT (9.0-12.0) sec INR (<1.2) Potassium (3.5-5.1) mmol/L Chloride (98-107) mmol/L Carbon Dioxide (22-30) mmol/L BUN (9-20) mg/dL Creatinine (0.66-1.25) mg/dL Glucose (74-99) mg/dL POC Glucose (mg/dL) 162 H (75-99) mg/dL Plasma Lactic Acid Néstor 5.0 H* (0.7-2.0) mmol/L Calcium (8.4-10.2) mg/dL Phosphorus (2.5-4.5) mg/dL AST (17-59) U/L ALT (21-72) U/L Alkaline Phosphatase (38-126) U/L Total Protein (6.3-8.2) g/dL Albumin (3.5-5.0) g/dL Urine Protein 1+ H (Negative) Urine Blood Trace H (Negative) Amorphous Sediment Moderate H (None) /hpf Urine Mucus Rare H (None) /hpf 07/21/18 07/21/18 07/21/18 Range/Units 17:59 23:30 23:30 WBC 14.9 H 16.2 H (3.8-10.6) k/uL Hgb 12.0 L (13.0-17.5) gm/dL MCHC 30.0 L 30.2 L (31.0-37.0) g/dL RDW 15.9 H 15.7 H (11.5-15.5) % Neutrophils # 13.7 H 14.4 H (1.3-7.7) k/uL Lymphocytes # 0.5 L (1.0-4.8) k/uL PT (9.0-12.0) sec INR (<1.2) Potassium (3.5-5.1) mmol/L Chloride 112 H (98-107) mmol/L Carbon Dioxide 17 L (22-30) mmol/L BUN 30 H (9-20) mg/dL Creatinine 1.32 H (0.66-1.25) mg/dL Glucose 144 H (74-99) mg/dL POC Glucose (mg/dL) (75-99) mg/dL Plasma Lactic Acid Néstor (0.7-2.0) mmol/L Calcium 7.0 L (8.4-10.2) mg/dL Phosphorus (2.5-4.5) mg/dL AST 288 H (17-59) U/L ALT 217 H (21-72) U/L Alkaline Phosphatase 132 H (38-126) U/L Total Protein 5.6 L (6.3-8.2) g/dL Albumin 2.4 L (3.5-5.0) g/dL Urine Protein (Negative) Urine Blood (Negative) Amorphous Sediment (None) /hpf Urine Mucus (None) /hpf 07/21/18 07/22/18 07/22/18 Range/Units 23:34 00:10 03:56 WBC 19.6 H (3.8-10.6) k/uL Hgb 12.9 L (13.0-17.5) gm/dL MCHC 29.2 L (31.0-37.0) g/dL RDW 15.7 H (11.5-15.5) % Neutrophils # 18.1 H (1.3-7.7) k/uL Lymphocytes # 0.7 L (1.0-4.8) k/uL PT (9.0-12.0) sec INR (<1.2) Potassium (3.5-5.1) mmol/L Chloride (98-107) mmol/L Carbon Dioxide (22-30) mmol/L BUN (9-20) mg/dL Creatinine (0.66-1.25) mg/dL Glucose (74-99) mg/dL POC Glucose (mg/dL) 145 H (75-99) mg/dL Plasma Lactic Acid Néstor 6.4 H* (0.7-2.0) mmol/L Calcium (8.4-10.2) mg/dL Phosphorus (2.5-4.5) mg/dL AST (17-59) U/L ALT (21-72) U/L Alkaline Phosphatase (38-126) U/L Total Protein (6.3-8.2) g/dL Albumin (3.5-5.0) g/dL Urine Protein (Negative) Urine Blood (Negative) Amorphous Sediment (None) /hpf Urine Mucus (None) /hpf 07/22/18 07/22/18 07/22/18 Range/Units 03:56 03:56 08:28 WBC (3.8-10.6) k/uL Hgb (13.0-17.5) gm/dL MCHC (31.0-37.0) g/dL RDW (11.5-15.5) % Neutrophils # (1.3-7.7) k/uL Lymphocytes # (1.0-4.8) k/uL PT 27.5 H (9.0-12.0) sec INR 3.1 H (<1.2) Potassium 5.2 H (3.5-5.1) mmol/L Chloride (98-107) mmol/L Carbon Dioxide 11 L (22-30) mmol/L BUN 35 H (9-20) mg/dL Creatinine 1.73 H (0.66-1.25) mg/dL Glucose 164 H (74-99) mg/dL POC Glucose (mg/dL) (75-99) mg/dL Plasma Lactic Acid Néstor 10.4 H* (0.7-2.0) mmol/L Calcium 8.2 L (8.4-10.2) mg/dL Phosphorus 7.3 H (2.5-4.5) mg/dL AST 318 H (17-59) U/L ALT 263 H (21-72) U/L Alkaline Phosphatase 152 H (38-126) U/L Total Protein (6.3-8.2) g/dL Albumin 3.2 L (3.5-5.0) g/dL Urine Protein (Negative) Urine Blood (Negative) Amorphous Sediment (None) /hpf Urine Mucus (None) /hpf 07/22/18 07/22/18 Range/Units 08:28 12:31 WBC (3.8-10.6) k/uL Hgb (13.0-17.5) gm/dL MCHC (31.0-37.0) g/dL RDW (11.5-15.5) % Neutrophils # (1.3-7.7) k/uL Lymphocytes # (1.0-4.8) k/uL PT (9.0-12.0) sec INR (<1.2) Potassium (3.5-5.1) mmol/L Chloride (98-107) mmol/L Carbon Dioxide (22-30) mmol/L BUN (9-20) mg/dL Creatinine (0.66-1.25) mg/dL Glucose (74-99) mg/dL POC Glucose (mg/dL) 193 H (75-99) mg/dL Plasma Lactic Acid Néstor 5.7 H* (0.7-2.0) mmol/L Calcium (8.4-10.2) mg/dL Phosphorus (2.5-4.5) mg/dL AST (17-59) U/L ALT (21-72) U/L Alkaline Phosphatase (38-126) U/L Total Protein (6.3-8.2) g/dL Albumin (3.5-5.0) g/dL Urine Protein (Negative) Urine Blood (Negative) Amorphous Sediment (None) /hpf Urine Mucus (None) /hpf CT scan - abdomen: report reviewed (Dr. Johns) Assessment and Plan (1) Abdominal pain Narrative/Plan: 82-year-old gentleman admitted with acute lower abdominal pain blood tinged bowel movements peritonitis with CT imaging suggestive of a possible enteritis enterocolitis elevated lactic acid leukocytosis worrisome for ischemic pathology. Current Visit: Yes Status: Acute Code(s): R10.9 - UNSPECIFIED ABDOMINAL PAIN SNOMED Code(s): 75170357 (2) Coagulopathy Narrative/Plan: Warfarin induced Current Visit: Yes Status: Acute Code(s): D68.9 - COAGULATION DEFECT, UNSPECIFIED SNOMED Code(s): 14703452 (3) Elevated lactic acid level Current Visit: Yes Status: Acute Code(s): R79.89 - OTHER SPECIFIED ABNORMAL FINDINGS OF BLOOD CHEMISTRY SNOMED Code(s): 6467144 (4) Leukocytosis Current Visit: Yes Status: Acute Code(s): D72.829 - ELEVATED WHITE BLOOD CELL COUNT, UNSPECIFIED SNOMED Code(s): 565580839 Plan: 1. Recommend CT angiography however patient's creatinine is elevated. General surgical consult. Nothing by mouth. NG tube decompression. Broad-spectrum IV antibiotics. CBC lactic acid monitoring. GI prophylaxis. We'll defer to surgical service for further recommendations. Thank you for this kind referral and the opportunity to participate in the care of your patient. This consultation was discussed with Dr. Johns. The impression and plan of care have been directed as dictated.
[2018-07-22 14:18] LABS: HCT 38.4 % (39.0-53.0); HGB 12.1 gm/dL (13.0-17.5); Hypochromasia Slight; MCH 27.6 pg (25.0-35.0); MCHC 31.5 g/dL (31.0-37.0); MCV 87.9 fL (80.0-100.0); Mean Platelet Volume 8.2; Platelet Count 183 k/uL (150-450); RBC 4.37 m/uL (4.30-5.90); WBC 15.4 k/uL (3.8-10.6)
--- NOTE | 2018-07-22 14:34 | P.PN ---
Subjective Progress Note Date: 07/22/18 82-year-old female patient, a very poor historian, extremity of Dr. Collier, came into the emergency department because a few days history of lower abdominal pain. The patient had some limited nausea. No emesis. He did have bowel movements that were liquidy and 2 bouts were noted in the emergency department. The stool was positive for Hemoccult. On admission, the patient lactic acid level of 7.2. His AST was 516, ALP was 321 and alkaline phosphatase was 191 month and he had a lipase of 79 and a amylase of 122. 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 There was a prominent fluids within mildly thickened mid to lower abdominal small bowel loops in addition to liquid stool throughout the colon. This raises the suspicion for enterocolitis. The patient also has a large prostate and moderate circumferential bladder wall thickening and a gallbladder showing mild wall thickening. The patient received 2 L of IV fluids. No hypotension. Abdominal pain has somewhat subsided. The patient is still having some tenderness and lower abdominal wall area. Note that the patient has chronic atrial fibrillation. Nevertheless,, the patient is anticoagulated and the patient is therapeutic on his PT/INR admission. Other comorbidities include COPD, congestion heart failure, coronary artery disease with previous myocardial infarction, hypothyroidism, chronic A. fib failure, diabetes mellitus and history of dementia. He has severe arthritis and bilateral shoulder replacements. No recent antibiotic intake. No travel history. He is covered with IV Zosyn as an empiric antibiotic coverage. On 07/22/2018, I'm seeing this patient for a follow-up. I saw this patient emergency department yesterday and was suspicious that he may have a underlying colitis, possibly of an ischemic type. The patient got transferred to the ICU and overnight he was given IV fluids and he received fluids in the order of 4 L. He continued to have a lower urine output throughout the night. He still having some lower abdominal pain which is rather diffuse. His white cell count is elevated at 15.4 today. His lactic acid peaked at 10.4 and gradually coming down to 2.9. Meanwhile, the patient had some increased nausea. He did have an emesis yesterday and NG tube was inserted. The liver function studies are also abnormal with an AST of 318, ALT of 263 and an alkaline phosphatase of 52. Ultrasound the abdomen and the gallbladder was done and showed changes consistent with cholecystitis. He is covered with IV Zosyn as an empiric antibiotic coverage. Blood cultures been negative. He did develop severe metabolic acidosis and the bicarb level today is down to 11 within the night Of 21 and it creatinine came up to 1.7. INR today is at 3.1. Underlying rhythm is a chair fibrillation. She of any chest pain. No symptoms of shortness of breath. He has underlying dementia and he has diminished level of consciousness. GI consultation and general surgical consultation were both requested. A follow-up letter some of the abdomen shows no pneumoperitoneum Objective - Vital Signs Vital signs: Vital Signs Temp 97.4 F L 07/22/18 12:00 Pulse 81 07/22/18 14:00 Resp 21 07/22/18 14:00 BP 159/81 07/22/18 14:00 Pulse Ox 96 07/22/18 14:00 Intake & Output 07/21/18 07/22/18 07/22/18 18:59 06:59 18:59 Intake Total 250 2411.583 720 Output Total 53 845 447 Balance 197 1566.583 273 Weight 79.379 kg 81.3 kg 81.3 kg Intake: IV 250 1787.5 570 Dextrose 5% in Water 1, 300 000 ml @ 100 mls/hr IV . [id number] [facility] with Sodium Bicarb (1 Meq/ml) 150 ml Rx#:[id number] Piperacillin-Tazobactam 3 50 37.5 50 .375 gm In Dextrose/Water 1 50ml.bag @ 12.5 mls/hr IVPB Q8HR [facility] Rx#: [id number] Sodium Chloride 0.9% 1, 200 1750 220 000 ml @ 100 mls/hr IV . Q10H [facility] Rx#:[id number] Intake, IV Titration 24.083 150 Amount Diltiazem 50 mg In Sodium 24.083 50 Chloride 0.9% 40 ml @ Per Protocol IV .Q0M [facility] Rx#:[id number] Magnesium Sulfate-D5w Pmx 100 1 gm In Dextrose/Water 1 100ml.bag @ 100 mls/hr IVPB Q1H [facility] Rx#: [id number] Oral 600 Output: Gastric Drainage 300 50 Urine 53 345 245 Stool 152 Emesis 200 Other: Voiding Method Indwelling Catheter Indwelling Catheter Indwelling Catheter # Bowel Movements 0 1 - Exam GENERAL EXAM: Alert, active, comfortable in no apparent distress. Hard of hearing. HEAD: Normocephalic. EYES: Normal reaction of pupils, equal size. NOSE: Clear with pink turbinates. THROAT: No erythema or exudates. NECK: No masses, no difficulty in JVD. CHEST: No chest wall deformity. LUNGS: Equal air entry with no wheeze, rhonchi or dullness. Crackles in the right posterior base. Few crackles at lung bases bilaterally. CVS: Irregular S1 and S2 normal with no audible murmurs, irregular regular rhythm. ABDOMEN: No hepatosplenomegaly, normal bowel sounds, no guarding or rigidity. There is mild lower abdominal wall tenderness. No rebound tenderness. No guarding. Bowel sounds are hypoactive. SPINE: No scoliosis or deformity SKIN: No rashes CENTRAL NERVOUS SYSTEM: No focal deficits, tone is normal in all 4 extremities. The patient has dementia. He does not have good insight of his condition. He does not have any good recollection and memory on recent or old events. His fluctuation in mental status probably related to underlying sepsis, metabolic encephalopathy and dementia. Extremities: There is no significant peripheral edema. No clubbing, no cyanosis. Peripheral pulses are intact. - Labs CBC & Chem 7: 07/22/18 13:04 07/22/18 03:56 Labs: Abnormal Lab Results - Last 24 Hours (Table) 07/21/18 07/21/18 07/21/18 Range/Units 15:53 16:56 17:59 WBC 14.9 H (3.8-10.6) k/uL Hgb (13.0-17.5) gm/dL Hct (39.0-53.0) % MCHC 30.0 L (31.0-37.0) g/dL RDW 15.9 H (11.5-15.5) % Neutrophils # 13.7 H (1.3-7.7) k/uL Lymphocytes # 0.5 L (1.0-4.8) k/uL PT (9.0-12.0) sec INR (<1.2) Potassium (3.5-5.1) mmol/L Chloride (98-107) mmol/L Carbon Dioxide (22-30) mmol/L BUN (9-20) mg/dL Creatinine (0.66-1.25) mg/dL Glucose (74-99) mg/dL POC Glucose (mg/dL) 162 H (75-99) mg/dL Plasma Lactic Acid Néstor 5.0 H* (0.7-2.0) mmol/L Calcium (8.4-10.2) mg/dL Phosphorus (2.5-4.5) mg/dL AST (17-59) U/L ALT (21-72) U/L Alkaline Phosphatase (38-126) U/L Total Protein (6.3-8.2) g/dL Albumin (3.5-5.0) g/dL 07/21/18 07/21/18 07/21/18 Range/Units 23:30 23:30 23:34 WBC 16.2 H (3.8-10.6) k/uL Hgb 12.0 L (13.0-17.5) gm/dL Hct (39.0-53.0) % MCHC 30.2 L (31.0-37.0) g/dL RDW 15.7 H (11.5-15.5) % Neutrophils # 14.4 H (1.3-7.7) k/uL Lymphocytes # (1.0-4.8) k/uL PT (9.0-12.0) sec INR (<1.2) Potassium (3.5-5.1) mmol/L Chloride 112 H (98-107) mmol/L Carbon Dioxide 17 L (22-30) mmol/L BUN 30 H (9-20) mg/dL Creatinine 1.32 H (0.66-1.25) mg/dL Glucose 144 H (74-99) mg/dL POC Glucose (mg/dL) 145 H (75-99) mg/dL Plasma Lactic Acid Néstor (0.7-2.0) mmol/L Calcium 7.0 L (8.4-10.2) mg/dL Phosphorus (2.5-4.5) mg/dL AST 288 H (17-59) U/L ALT 217 H (21-72) U/L Alkaline Phosphatase 132 H (38-126) U/L Total Protein 5.6 L (6.3-8.2) g/dL Albumin 2.4 L (3.5-5.0) g/dL 07/22/18 07/22/18 07/22/18 Range/Units 00:10 03:56 03:56 WBC 19.6 H (3.8-10.6) k/uL Hgb 12.9 L (13.0-17.5) gm/dL Hct (39.0-53.0) % MCHC 29.2 L (31.0-37.0) g/dL RDW 15.7 H (11.5-15.5) % Neutrophils # 18.1 H (1.3-7.7) k/uL Lymphocytes # 0.7 L (1.0-4.8) k/uL PT (9.0-12.0) sec INR (<1.2) Potassium 5.2 H (3.5-5.1) mmol/L Chloride (98-107) mmol/L Carbon Dioxide 11 L (22-30) mmol/L BUN 35 H (9-20) mg/dL Creatinine 1.73 H (0.66-1.25) mg/dL Glucose 164 H (74-99) mg/dL POC Glucose (mg/dL) (75-99) mg/dL Plasma Lactic Acid Néstor 6.4 H* (0.7-2.0) mmol/L Calcium 8.2 L (8.4-10.2) mg/dL Phosphorus 7.3 H (2.5-4.5) mg/dL AST 318 H (17-59) U/L ALT 263 H (21-72) U/L Alkaline Phosphatase 152 H (38-126) U/L Total Protein (6.3-8.2) g/dL Albumin 3.2 L (3.5-5.0) g/dL 07/22/18 07/22/18 07/22/18 Range/Units 03:56 08:28 08:28 WBC (3.8-10.6) k/uL Hgb (13.0-17.5) gm/dL Hct (39.0-53.0) % MCHC (31.0-37.0) g/dL RDW (11.5-15.5) % Neutrophils # (1.3-7.7) k/uL Lymphocytes # (1.0-4.8) k/uL PT 27.5 H (9.0-12.0) sec INR 3.1 H (<1.2) Potassium (3.5-5.1) mmol/L Chloride (98-107) mmol/L Carbon Dioxide (22-30) mmol/L BUN (9-20) mg/dL Creatinine (0.66-1.25) mg/dL Glucose (74-99) mg/dL POC Glucose (mg/dL) (75-99) mg/dL Plasma Lactic Acid Néstor 10.4 H* 5.7 H* (0.7-2.0) mmol/L Calcium (8.4-10.2) mg/dL Phosphorus (2.5-4.5) mg/dL AST (17-59) U/L ALT (21-72) U/L Alkaline Phosphatase (38-126) U/L Total Protein (6.3-8.2) g/dL Albumin (3.5-5.0) g/dL 07/22/18 07/22/18 07/22/18 Range/Units 12:30 12:31 13:04 WBC 15.4 H (3.8-10.6) k/uL Hgb 12.1 L (13.0-17.5) gm/dL Hct 38.4 L (39.0-53.0) % MCHC (31.0-37.0) g/dL RDW 16.0 H (11.5-15.5) % Neutrophils # (1.3-7.7) k/uL Lymphocytes # (1.0-4.8) k/uL PT (9.0-12.0) sec INR (<1.2) Potassium (3.5-5.1) mmol/L Chloride (98-107) mmol/L Carbon Dioxide (22-30) mmol/L BUN (9-20) mg/dL Creatinine (0.66-1.25) mg/dL Glucose (74-99) mg/dL POC Glucose (mg/dL) 193 H (75-99) mg/dL Plasma Lactic Acid Néstor 2.9 H* (0.7-2.0) mmol/L Calcium (8.4-10.2) mg/dL Phosphorus (2.5-4.5) mg/dL AST (17-59) U/L ALT (21-72) U/L Alkaline Phosphatase (38-126) U/L Total Protein (6.3-8.2) g/dL Albumin (3.5-5.0) g/dL Assessment and Plan Plan: 1 lower abdominal pain, acute, associated with lactic acidosis. Consider ischemic colitis 2 abnormal LFTs with dilated gallbladder. Rule out underlying cholecystitis 3 lactic acidosis, improving. 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 Hearing 11 severe arthritis with bilateral shoulder and knee replacement 12 BPH 13. Debility and impaired performance and functional status second above- mentioned comorbidities 14 pseudotumor within the right lung , patient has fluid within the right fissure that has been visualized on previous CAT scans and chest x-rays. 15 hypertension 6. Acute kidney injury in the creatinine is up to 1.7 . Plan Switch this patient to a bicarb drip infusion. Continue IV Zosyn. Awaiting general surgical consultation. Keep the patient nothing by mouth an NG tube in place for now. Continue empiric antibiotic coverage with IV Zosyn. Awaiting the results of the blood culture. Abnormalities in LFTs and ultrasound of abdomen was noted. Abnormalities in the CAT scan of the abdomen was noted. Keep the Coumadin on hold. Keep nothing by mouth. We'll continue to follow make further recommendations based on his progress. Condition is critical. May ultimately become a surgical candidate depending on his overall progress.
--- NOTE | 2018-07-22 14:54 | P.GSCN ---
<Anita Fortune - Last Filed: 07/22/18 14:36> History of Present Illness Consult date: 07/22/18 History of present illness: 82-year-old gentleman being seen in the intensive care unit for a surgical eval at the request of the attending patient is very hard of hearing. Sitting up in bed. Patient's initial presentation to the emergency room after patient had been experiencing a several day duration of lower abdominal pain. Question patient patient points to the lower abdominal wall as to the reference point as to the the pain is. Patient had a nausea sensation reportedly did not have an emesis. Reviewing the emergency room record patient had 2 liquid stools. Nursing reports the patient has been incontinent of several rust-colored stools no bright red blood noted. On admission the labs were reviewed AST 516, ALT 321. Alk phos 191. Lipase 79 amylase 122. Patient did have a CAT scan of the abdomen pelvis showed reviewing the report recurrent pseudotumor within the right midlung. Prominent fluids within a mildly thickened mid to lower abdominal small bowel loops in addition to liquid stool throughout the colon. Suspect entercolitis ultrasound of the abdomen reviewing the report large gallbladder findings consistent with cholecystitis no gallstones no dilated ducts. Stool for occult blood positive C. diff negative At the time of my exam patient does have facial grimacing with palpitation to the lower abdominal wall bilaterally abdomen is not distended. A nasogastric tube is in place. Past medical history from reviewing computerized record indicates patient has atrial fibrillation, hyperlipidemia, prostate cancer. Hypertension. Heart failure esophageal reflux disease Past surgical procedures orthopedic left BKA Review of Systems not able to adequately obtain patient has no recall Past Medical History Past Medical History: Atrial Fibrillation, Chest Pain / Angina, Heart Failure, GERD/Reflux, Hearing Disorder / Deafness, Hyperlipidemia, Hypertension, Prostate Disorder Additional Past Medical History / Comment(s): Coronary artery disease, previous myocardial infarction, chronic atrial fibrillation, COPD, congestion heart failure with a previous ejection fraction 45-50% in addition to moderate to severe aortic valve sclerosis, mild AF, mild AR, moderate concentric left ventricular hypertrophy/hypertensive heart disease, diabetes mellitus, dementia , obstructive sleep apnea, hypothyroidism, BPH, osteoarthritis, previous bilateral knee replacement, previous bilateral shoulder replacement, pt does'nt have his hearing aids.communicated best with him by writting out questions, 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 History of Any Multi-Drug Resistant Organisms: None Reported Year Discovered:: 05/18/18 MDRO Source:: ANKLE Past Surgical History: Joint Replacement Additional Past Surgical History / Comment(s): bilateral knee replacements, bilateral rotator cuff repairs, left BKA -pt stated due to infection Past Anesthesia/Blood Transfusion Reactions: No Reported Reaction Smoking Status: Former smoker - Past Family History Father History Unknown: Yes Mother History Unknown: Yes Medications and Allergies Home Medications Medication Instructions Recorded Confirmed Type Warfarin Sodium [Coumadin] 2.5 mg PO DAILY 11/30/16 07/21/18 History Atorvastatin [Lipitor] 20 mg PO HS@2100 01/19/17 07/21/18 History Furosemide [Lasix] 40 mg PO DAILY@0600 01/19/17 07/21/18 History Metoprolol Tartrate [Lopressor] 50 mg PO BID@0900,2100 01/19/17 07/21/18 History Aspirin 81 mg PO DAILY 11/05/17 07/21/18 History Sennosides [Senna] 8.6 mg PO BID 11/05/17 07/21/18 History Omeprazole 40 mg PO DAILY #14 capsule.dr 06/11/18 07/21/18 Rx Levothyroxine Sodium 25 mcg PO DAILY 07/21/18 07/21/18 History Lisinopril [Zestril] 20 mg PO DAILY 07/21/18 07/21/18 History Sertraline HCl [Zoloft] 50 mg PO HS 07/21/18 07/21/18 History Sucralfate [Carafate] 1 gm PO QID 07/21/18 07/21/18 History Allergies Allergy/AdvReac Type Severity Reaction Status Date / Time No Known Allergies Allergy Verified 07/21/18 12:13 Surgical - Exam Vital Signs Temp Pulse Resp BP 96 F L 58 L 20 148/83 07/21/18 11:34 07/21/18 11:34 07/21/18 11:34 07/21/18 11:34 GENERAL APPEARANCE: 82 -year-old male very hard of hearing patient is alert, oriented to self only no recall of event in no acute distress. Sitting up in bed VITAL SIGNS: Reviewed HEENT: Head is normocephalic and atraumatic. Pupils are equal and reactive. The nares are patent. Oropharynx is clear without lesions. NECK: Supple without lymphadenopathy. Traches midline. HEART: S1, S2. Irregular LUNGS: Posterior crackles right base adequate air movement bilaterally with no wheezing no dullness and no rhonchi ABDOMEN: Soft, nontender, nondistended with hypoactive bowel sounds. No peritoneal signs. No palpable organomegaly or masses. Mild tenderness to the lower abdominal wall nasal gastric tube to suction EXTREMITIES: Left BKA Normal skin color and turgor. No cyanosis, rash, ulceration, clubbing or edema. Radial pedal pulses are 2/4 bilaterally. . Results - Labs 07/22/18 13:04 07/22/18 03:56 Abnormal Lab Results - Last 24 Hours (Table) 07/21/18 07/21/18 07/21/18 Range/Units 15:53 16:56 17:59 WBC 14.9 H (3.8-10.6) k/uL Hgb (13.0-17.5) gm/dL Hct (39.0-53.0) % MCHC 30.0 L (31.0-37.0) g/dL RDW 15.9 H (11.5-15.5) % Neutrophils # 13.7 H (1.3-7.7) k/uL Lymphocytes # 0.5 L (1.0-4.8) k/uL PT (9.0-12.0) sec INR (<1.2) Potassium (3.5-5.1) mmol/L Chloride (98-107) mmol/L Carbon Dioxide (22-30) mmol/L BUN (9-20) mg/dL Creatinine (0.66-1.25) mg/dL Glucose (74-99) mg/dL POC Glucose (mg/dL) 162 H (75-99) mg/dL Plasma Lactic Acid Néstor 5.0 H* (0.7-2.0) mmol/L Calcium (8.4-10.2) mg/dL Phosphorus (2.5-4.5) mg/dL AST (17-59) U/L ALT (21-72) U/L Alkaline Phosphatase (38-126) U/L Total Protein (6.3-8.2) g/dL Albumin (3.5-5.0) g/dL 07/21/18 07/21/18 07/21/18 Range/Units 23:30 23:30 23:34 WBC 16.2 H (3.8-10.6) k/uL Hgb 12.0 L (13.0-17.5) gm/dL Hct (39.0-53.0) % MCHC 30.2 L (31.0-37.0) g/dL RDW 15.7 H (11.5-15.5) % Neutrophils # 14.4 H (1.3-7.7) k/uL Lymphocytes # (1.0-4.8) k/uL PT (9.0-12.0) sec INR (<1.2) Potassium (3.5-5.1) mmol/L Chloride 112 H (98-107) mmol/L Carbon Dioxide 17 L (22-30) mmol/L BUN 30 H (9-20) mg/dL Creatinine 1.32 H (0.66-1.25) mg/dL Glucose 144 H (74-99) mg/dL POC Glucose (mg/dL) 145 H (75-99) mg/dL Plasma Lactic Acid Néstor (0.7-2.0) mmol/L Calcium 7.0 L (8.4-10.2) mg/dL Phosphorus (2.5-4.5) mg/dL AST 288 H (17-59) U/L ALT 217 H (21-72) U/L Alkaline Phosphatase 132 H (38-126) U/L Total Protein 5.6 L (6.3-8.2) g/dL Albumin 2.4 L (3.5-5.0) g/dL 07/22/18 07/22/18 07/22/18 Range/Units 00:10 03:56 03:56 WBC 19.6 H (3.8-10.6) k/uL Hgb 12.9 L (13.0-17.5) gm/dL Hct (39.0-53.0) % MCHC 29.2 L (31.0-37.0) g/dL RDW 15.7 H (11.5-15.5) % Neutrophils # 18.1 H (1.3-7.7) k/uL Lymphocytes # 0.7 L (1.0-4.8) k/uL PT (9.0-12.0) sec INR (<1.2) Potassium 5.2 H (3.5-5.1) mmol/L Chloride (98-107) mmol/L Carbon Dioxide 11 L (22-30) mmol/L BUN 35 H (9-20) mg/dL Creatinine 1.73 H (0.66-1.25) mg/dL Glucose 164 H (74-99) mg/dL POC Glucose (mg/dL) (75-99) mg/dL Plasma Lactic Acid Néstor 6.4 H* (0.7-2.0) mmol/L Calcium 8.2 L (8.4-10.2) mg/dL Phosphorus 7.3 H (2.5-4.5) mg/dL AST 318 H (17-59) U/L ALT 263 H (21-72) U/L Alkaline Phosphatase 152 H (38-126) U/L Total Protein (6.3-8.2) g/dL Albumin 3.2 L (3.5-5.0) g/dL 07/22/18 07/22/18 07/22/18 Range/Units 03:56 08:28 08:28 WBC (3.8-10.6) k/uL Hgb (13.0-17.5) gm/dL Hct (39.0-53.0) % MCHC (31.0-37.0) g/dL RDW (11.5-15.5) % Neutrophils # (1.3-7.7) k/uL Lymphocytes # (1.0-4.8) k/uL PT 27.5 H (9.0-12.0) sec INR 3.1 H (<1.2) Potassium (3.5-5.1) mmol/L Chloride (98-107) mmol/L Carbon Dioxide (22-30) mmol/L BUN (9-20) mg/dL Creatinine (0.66-1.25) mg/dL Glucose (74-99) mg/dL POC Glucose (mg/dL) (75-99) mg/dL Plasma Lactic Acid Néstor 10.4 H* 5.7 H* (0.7-2.0) mmol/L Calcium (8.4-10.2) mg/dL Phosphorus (2.5-4.5) mg/dL AST (17-59) U/L ALT (21-72) U/L Alkaline Phosphatase (38-126) U/L Total Protein (6.3-8.2) g/dL Albumin (3.5-5.0) g/dL 07/22/18 07/22/18 07/22/18 Range/Units 12:30 12:31 13:04 WBC 15.4 H (3.8-10.6) k/uL Hgb 12.1 L (13.0-17.5) gm/dL Hct 38.4 L (39.0-53.0) % MCHC (31.0-37.0) g/dL RDW 16.0 H (11.5-15.5) % Neutrophils # (1.3-7.7) k/uL Lymphocytes # (1.0-4.8) k/uL PT (9.0-12.0) sec INR (<1.2) Potassium (3.5-5.1) mmol/L Chloride (98-107) mmol/L Carbon Dioxide (22-30) mmol/L BUN (9-20) mg/dL Creatinine (0.66-1.25) mg/dL Glucose (74-99) mg/dL POC Glucose (mg/dL) 193 H (75-99) mg/dL Plasma Lactic Acid Néstor 2.9 H* (0.7-2.0) mmol/L Calcium (8.4-10.2) mg/dL Phosphorus (2.5-4.5) mg/dL AST (17-59) U/L ALT (21-72) U/L Alkaline Phosphatase (38-126) U/L Total Protein (6.3-8.2) g/dL Albumin (3.5-5.0) g/dL Diabetes panel 07/21/18 07/22/18 Range/Units 23:30 03:56 Sodium 140 139 (137-145) mmol/L Potassium 4.3 5.2 H (3.5-5.1) mmol/L Chloride 112 H 107 (98-107) mmol/L Carbon Dioxide 17 L 11 L (22-30) mmol/L BUN 30 H 35 H (9-20) mg/dL Creatinine 1.32 H 1.73 H (0.66-1.25) mg/dL Glucose 144 H 164 H (74-99) mg/dL Calcium 7.0 L 8.2 L (8.4-10.2) mg/dL AST 288 H 318 H (17-59) U/L ALT 217 H 263 H (21-72) U/L Alkaline Phosphatase 132 H 152 H (38-126) U/L Total Protein 5.6 L 7.0 (6.3-8.2) g/dL Albumin 2.4 L 3.2 L (3.5-5.0) g/dL Calcium panel 07/21/18 07/22/18 Range/Units 23:30 03:56 Calcium 7.0 L 8.2 L (8.4-10.2) mg/dL Phosphorus 7.3 H (2.5-4.5) mg/dL Albumin 2.4 L 3.2 L (3.5-5.0) g/dL Pituitary panel 07/21/18 07/22/18 Range/Units 23:30 03:56 Sodium 140 139 (137-145) mmol/L Potassium 4.3 5.2 H (3.5-5.1) mmol/L Chloride 112 H 107 (98-107) mmol/L Carbon Dioxide 17 L 11 L (22-30) mmol/L BUN 30 H 35 H (9-20) mg/dL Creatinine 1.32 H 1.73 H (0.66-1.25) mg/dL Glucose 144 H 164 H (74-99) mg/dL Calcium 7.0 L 8.2 L (8.4-10.2) mg/dL Adrenal panel 07/21/18 07/22/18 Range/Units 23:30 03:56 Sodium 140 139 (137-145) mmol/L Potassium 4.3 5.2 H (3.5-5.1) mmol/L Chloride 112 H 107 (98-107) mmol/L Carbon Dioxide 17 L 11 L (22-30) mmol/L BUN 30 H 35 H (9-20) mg/dL Creatinine 1.32 H 1.73 H (0.66-1.25) mg/dL Glucose 144 H 164 H (74-99) mg/dL Calcium 7.0 L 8.2 L (8.4-10.2) mg/dL Total Bilirubin 0.8 1.2 (0.2-1.3) mg/dL AST 288 H 318 H (17-59) U/L ALT 217 H 263 H (21-72) U/L Alkaline Phosphatase 132 H 152 H (38-126) U/L Total Protein 5.6 L 7.0 (6.3-8.2) g/dL Albumin 2.4 L 3.2 L (3.5-5.0) g/dL Assessment and Plan Assessment: Impression Present on admission bilateral lower abdominal pain frequent stooling suspect possible ischemic colitis Present on admission abnormal liver function studies with a dilated gallbladder possible cholecystitis Dementia with no behavior disturbance Chronic atrial fibrillation on long-term anticoagulation Coumadin Present on admission INR 3 Previous history of left below the knee amputation Very hard of hearing Debilitated Per advance directives no CODE STATUS Congestive heart failure systolic EF 45-50 no evidence of an exacerbation Present on admission lactic acidosis improving Frequent stooling C. diff negative Present on admission leukocytosis Plan Continue Zosyn broad-spectrum antibiotics Will monitor patient's clinical course addressing surgical issues as they arise IV fluid hydration Patient would be a poor surgical candidate given patient's comorbidities Will follow with you DVT and GI prophylaxis Continue IV Cardizem drip Consultation dictated for Dr. Matias The above impression and plan of care have been discussed and directed by signing physician. Anita Fortune nurse practitioner acting as scribe for signing physician. <May Shahid N - Last Filed: 07/22/18 17:35> Surgical - Exam Vital Signs Temp Pulse Resp BP 96 F L 58 L 20 148/83 07/21/18 11:34 07/21/18 11:34 07/21/18 11:34 07/21/18 11:34 Results - Labs 07/22/18 13:04 07/22/18 03:56 Abnormal Lab Results - Last 24 Hours (Table) 07/21/18 07/21/18 07/21/18 Range/Units 17:59 23:30 23:30 WBC 14.9 H 16.2 H (3.8-10.6) k/uL Hgb 12.0 L (13.0-17.5) gm/dL Hct (39.0-53.0) % MCHC 30.0 L 30.2 L (31.0-37.0) g/dL RDW 15.9 H 15.7 H (11.5-15.5) % Neutrophils # 13.7 H 14.4 H (1.3-7.7) k/uL Lymphocytes # 0.5 L (1.0-4.8) k/uL PT (9.0-12.0) sec INR (<1.2) Potassium (3.5-5.1) mmol/L Chloride 112 H (98-107) mmol/L Carbon Dioxide 17 L (22-30) mmol/L BUN 30 H (9-20) mg/dL Creatinine 1.32 H (0.66-1.25) mg/dL Glucose 144 H (74-99) mg/dL POC Glucose (mg/dL) (75-99) mg/dL Plasma Lactic Acid Néstor (0.7-2.0) mmol/L Calcium 7.0 L (8.4-10.2) mg/dL Phosphorus (2.5-4.5) mg/dL AST 288 H (17-59) U/L ALT 217 H (21-72) U/L Alkaline Phosphatase 132 H (38-126) U/L Total Protein 5.6 L (6.3-8.2) g/dL Albumin 2.4 L (3.5-5.0) g/dL 07/21/18 07/22/18 07/22/18 Range/Units 23:34 00:10 03:56 WBC 19.6 H (3.8-10.6) k/uL Hgb 12.9 L (13.0-17.5) gm/dL Hct (39.0-53.0) % MCHC 29.2 L (31.0-37.0) g/dL RDW 15.7 H (11.5-15.5) % Neutrophils # 18.1 H (1.3-7.7) k/uL Lymphocytes # 0.7 L (1.0-4.8) k/uL PT (9.0-12.0) sec INR (<1.2) Potassium (3.5-5.1) mmol/L Chloride (98-107) mmol/L Carbon Dioxide (22-30) mmol/L BUN (9-20) mg/dL Creatinine (0.66-1.25) mg/dL Glucose (74-99) mg/dL POC Glucose (mg/dL) 145 H (75-99) mg/dL Plasma Lactic Acid Néstor 6.4 H* (0.7-2.0) mmol/L Calcium (8.4-10.2) mg/dL Phosphorus (2.5-4.5) mg/dL AST (17-59) U/L ALT (21-72) U/L Alkaline Phosphatase (38-126) U/L Total Protein (6.3-8.2) g/dL Albumin (3.5-5.0) g/dL 07/22/18 07/22/18 07/22/18 Range/Units 03:56 03:56 08:28 WBC (3.8-10.6) k/uL Hgb (13.0-17.5) gm/dL Hct (39.0-53.0) % MCHC (31.0-37.0) g/dL RDW (11.5-15.5) % Neutrophils # (1.3-7.7) k/uL Lymphocytes # (1.0-4.8) k/uL PT 27.5 H (9.0-12.0) sec INR 3.1 H (<1.2) Potassium 5.2 H (3.5-5.1) mmol/L Chloride (98-107) mmol/L Carbon Dioxide 11 L (22-30) mmol/L BUN 35 H (9-20) mg/dL Creatinine 1.73 H (0.66-1.25) mg/dL Glucose 164 H (74-99) mg/dL POC Glucose (mg/dL) (75-99) mg/dL Plasma Lactic Acid Néstor 10.4 H* (0.7-2.0) mmol/L Calcium 8.2 L (8.4-10.2) mg/dL Phosphorus 7.3 H (2.5-4.5) mg/dL AST 318 H (17-59) U/L ALT 263 H (21-72) U/L Alkaline Phosphatase 152 H (38-126) U/L Total Protein (6.3-8.2) g/dL Albumin 3.2 L (3.5-5.0) g/dL 07/22/18 07/22/18 07/22/18 Range/Units 08:28 12:30 12:31 WBC (3.8-10.6) k/uL Hgb (13.0-17.5) gm/dL Hct (39.0-53.0) % MCHC (31.0-37.0) g/dL RDW (11.5-15.5) % Neutrophils # (1.3-7.7) k/uL Lymphocytes # (1.0-4.8) k/uL PT (9.0-12.0) sec INR (<1.2) Potassium (3.5-5.1) mmol/L Chloride (98-107) mmol/L Carbon Dioxide (22-30) mmol/L BUN (9-20) mg/dL Creatinine (0.66-1.25) mg/dL Glucose (74-99) mg/dL POC Glucose (mg/dL) 193 H (75-99) mg/dL Plasma Lactic Acid Néstor 5.7 H* 2.9 H* (0.7-2.0) mmol/L Calcium (8.4-10.2) mg/dL Phosphorus (2.5-4.5) mg/dL AST (17-59) U/L ALT (21-72) U/L Alkaline Phosphatase (38-126) U/L Total Protein (6.3-8.2) g/dL Albumin (3.5-5.0) g/dL 07/22/18 Range/Units 13:04 WBC 15.4 H (3.8-10.6) k/uL Hgb 12.1 L (13.0-17.5) gm/dL Hct 38.4 L (39.0-53.0) % MCHC (31.0-37.0) g/dL RDW 16.0 H (11.5-15.5) % Neutrophils # (1.3-7.7) k/uL Lymphocytes # (1.0-4.8) k/uL PT (9.0-12.0) sec INR (<1.2) Potassium (3.5-5.1) mmol/L Chloride (98-107) mmol/L Carbon Dioxide (22-30) mmol/L BUN (9-20) mg/dL Creatinine (0.66-1.25) mg/dL Glucose (74-99) mg/dL POC Glucose (mg/dL) (75-99) mg/dL Plasma Lactic Acid Néstor (0.7-2.0) mmol/L Calcium (8.4-10.2) mg/dL Phosphorus (2.5-4.5) mg/dL AST (17-59) U/L ALT (21-72) U/L Alkaline Phosphatase (38-126) U/L Total Protein (6.3-8.2) g/dL Albumin (3.5-5.0) g/dL Microbiology - Last 24 Hours (Table) 07/21/18 13:33 Blood Culture - Preliminary Blood No Growth after 24 hours 07/22/18 11:50 Urine Culture - Preliminary Urine,Catheterized Diabetes panel 07/21/18 07/22/18 Range/Units 23:30 03:56 Sodium 140 139 (137-145) mmol/L Potassium 4.3 5.2 H (3.5-5.1) mmol/L Chloride 112 H 107 (98-107) mmol/L Carbon Dioxide 17 L 11 L (22-30) mmol/L BUN 30 H 35 H (9-20) mg/dL Creatinine 1.32 H 1.73 H (0.66-1.25) mg/dL Glucose 144 H 164 H (74-99) mg/dL Calcium 7.0 L 8.2 L (8.4-10.2) mg/dL AST 288 H 318 H (17-59) U/L ALT 217 H 263 H (21-72) U/L Alkaline Phosphatase 132 H 152 H (38-126) U/L Total Protein 5.6 L 7.0 (6.3-8.2) g/dL Albumin 2.4 L 3.2 L (3.5-5.0) g/dL Calcium panel 07/21/18 07/22/18 Range/Units 23:30 03:56 Calcium 7.0 L 8.2 L (8.4-10.2) mg/dL Phosphorus 7.3 H (2.5-4.5) mg/dL Albumin 2.4 L 3.2 L (3.5-5.0) g/dL Pituitary panel 07/21/18 07/22/18 Range/Units 23:30 03:56 Sodium 140 139 (137-145) mmol/L Potassium 4.3 5.2 H (3.5-5.1) mmol/L Chloride 112 H 107 (98-107) mmol/L Carbon Dioxide 17 L 11 L (22-30) mmol/L BUN 30 H 35 H (9-20) mg/dL Creatinine 1.32 H 1.73 H (0.66-1.25) mg/dL Glucose 144 H 164 H (74-99) mg/dL Calcium 7.0 L 8.2 L (8.4-10.2) mg/dL Adrenal panel 07/21/18 07/22/18 Range/Units 23:30 03:56 Sodium 140 139 (137-145) mmol/L Potassium 4.3 5.2 H (3.5-5.1) mmol/L Chloride 112 H 107 (98-107) mmol/L Carbon Dioxide 17 L 11 L (22-30) mmol/L BUN 30 H 35 H (9-20) mg/dL Creatinine 1.32 H 1.73 H (0.66-1.25) mg/dL Glucose 144 H 164 H (74-99) mg/dL Calcium 7.0 L 8.2 L (8.4-10.2) mg/dL Total Bilirubin 0.8 1.2 (0.2-1.3) mg/dL AST 288 H 318 H (17-59) U/L ALT 217 H 263 H (21-72) U/L Alkaline Phosphatase 132 H 152 H (38-126) U/L Total Protein 5.6 L 7.0 (6.3-8.2) g/dL Albumin 2.4 L 3.2 L (3.5-5.0) g/dL Assessment and Plan Plan: Patient seen and evaluated. No diffuse peritonitis on exam. Mild tenderness along the bilateral lower abdomen. Recommend IV antibiotics for enterocolitis. We'll follow. Continue ICU care.
--- NOTE | 2018-07-22 15:21 | XR ---
EXAMINATION TYPE: XR chest 1V portable DATE OF EXAM: 07/22/2018 CLINICAL HISTORY: Line placement. TECHNIQUE: Single AP portable semiupright view of the chest is obtained. COMPARISON: Chest x-ray from earlier today and older studies FINDINGS: There is new left internal jugular central venous catheter terminating near brachiocephali c confluence. Metallic artifact bilateral shoulder surgery is redemonstrated. A nasogastric tube is again seen. There is persistent cardiomegaly with atherosclerotic thoracic aorta. Central opacities bilaterally r emain present. There is persistent small right pleural effusion and suspected tiny left pleural effus ion. No sizable pneumothorax is seen bilaterally. IMPRESSION: No sizable pneumothorax after left-sided central venous catheter placement. Other finding s stable.
[2018-07-22 18:53] LABS: Glucose,Whole Blood 153 mg/dL (75-99)
[2018-07-22] MEDS: SERTRALINE 50 MG TAB PO SCH (20:30)
--- NOTE | 2018-07-22 20:36 | PCN ---
PROCEDURE NOTE TRIPLE LUMEN CATHETER PLACEMENT: PREOPERATIVE DIAGNOSIS: Sepsis. POSTOPERATIVE DIAGNOSIS: Sepsis. Indication Hemodynamic monitoring/Intravenous access. A time-out was completed verifying correct patient, procedure, site, positioning, and implant(s) or special equipment if applicable. The patient was placed in a dependent position appropriate for triple lumen catheter placement based on the vein to be cannulated. The patient's left neck was prepped and draped in sterile fashion. 1% Lidocaine was used to anesthetize the surrounding skin area. A triple lumen 9F Cordis catheter was introduced into the internal jugular or common femoral vein using Seldinger technique. The catheter was threaded smoothly over the guide wire and appropriate blood return was obtained. Each lumen of the catheter was evacuated of air and flushed with sterile saline. The catheter was then sutured in place to the skin and a sterile dressing applied. Perfusion to the extremity distal to the point of catheter insertion was checked and found to be adequate. No bedside complications or bleeding and no evidence of pneumothorax post line insertion. No complications. MMODL / IJN: [id number] /
[2018-07-22 23:55] LABS: Glucose,Whole Blood 141 mg/dL (75-99)
[2018-07-23 05:02] LABS: Anisocytosis Slight; Basophils % (A) 0 %; Eosinophils # (A) 0.1 k/uL (0-0.7); Eosinophils % (A) 1 %; HCT 36.7 % (39.0-53.0); HGB 11.5 gm/dL (13.0-17.5); Lymphocytes # (A) 0.5 k/uL (1.0-4.8); Lymphocytes % (A) 4 %; MCH 27.2 pg (25.0-35.0); MCHC 31.4 g/dL (31.0-37.0); MCV 86.9 fL (80.0-100.0); Mean Platelet Volume 8.2; Monocytes # (A) 0.3 k/uL (0-1.0); Monocytes % (A) 3 %; Neutrophils # (A) 11.9 k/uL (1.3-7.7); Neutrophils % (A) 92 %; Platelet Count 161 k/uL (150-450); RBC 4.23 m/uL (4.30-5.90); RDW 16.1 % (11.5-15.5)
[2018-07-23 05:12] LABS: INR 1.7 (<1.2); Prothrombin Time 15.7 sec (9.0-12.0)
[2018-07-23 05:17] LABS: Albumin 2.3 g/dL (3.5-5.0); Calcium 7.6 mg/dL (8.4-10.2); Magnesium 2.1 mg/dL (1.6-2.3); Phosphorus 3.6 mg/dL (2.5-4.5); Potassium 3.8 mmol/L (3.5-5.1); Total Bilirubin 1.2 mg/dL (0.2-1.3); Total Protein 5.3 g/dL (6.3-8.2)
[2018-07-23] MEDS: INSULIN ASPART 100 UNIT/ML 1 ML 10 ML VIAL SQ SCH ×3 (06:07→18:18)
[2018-07-23] MEDS: LEVOTHYROXINE 25 MCG TAB PO SCH (06:11)
[2018-07-23 06:27] LABS: Glucose,Whole Blood 120 mg/dL (75-99)
--- NOTE | 2018-07-23 06:31 | CONS ---
CONSULTATION DATE OF SERVICE: 07/22/2018. REASON FOR REQUEST: Sepsis and antibiotic recommendation. HISTORY OF PRESENT ILLNESS: The patient is 82-year-old male who was brought into the ER at [facility] yesterday morning with chief complaints of a few days history of abdominal pain. His pain has been mostly in the lower abdominal area with some of the pain to be more crampy in the nature. However, unable to quantify the severity of it. The patient has some nausea but no vomiting and did have loose stools. Patient subsequently was evaluated by the ER physician. Patient did have elevated lactic acid of 7.2, elevated liver enzymes. CT abdominal pelvis did show mildly thickened small bowel loops in the addition to the liquid stool throughout the colon suspicious for enterocolitis with concern for possible ischemic colitis and the patient has received a 2 L fluid bolus. The patient was afebrile on admission did have tachycardia, but no hypotension. Subsequently the patient has been admitted to the ICU for further resuscitation. The patient did have an ultrasound of the abdomen completed because of his elevated liver exam, which did show suspicious for possible cholecystitis. Surgery has seen the patient and HIDA scan has been requested to further clarify with gallbladder area. The patient treated with Zosyn. Infectious Disease was consulted for further recommendation regarding antibiotic therapy. The patient also has a wound on his right lateral ankle area. Unfortunately, the patient unable to tell me when exactly he got this. He did complain of some pain to that ankle area but unable to quantify it. No surrounding redness or any drainage. Currently being treated with Aquacel silver dressing. Unfortunately, patient is very hard of hearing and not a good historian so most of the information has been obtained from thorough review of the chart and asking some leading questions. REVIEW OF SYSTEMS: Review of systems could not be reliably obtained. The positive points have been mentioned in HPI. PAST MEDICAL HISTORY: Significant for hypertension, hyperlipidemia, atrial fibrillation, gastroesophageal reflux disease, prostate disorder, angina, heart failure, COPD. PAST SURGICAL HISTORY: Bilateral knee replacement, bilateral rotator cuff repair, left BKA secondary infection. SOCIAL HISTORY: Remote history of smoking. No drinking or drug use. FAMILY HISTORY: No pertinent findings noticed. ALLERGIES: No known drug allergies. MEDICATIONS: The patient is currently on diltiazem, NovoLog, Synthroid, Lopressor, Zofran, Protonix, Zosyn 3.375 g q.8h and Zoloft. EXAMINATION: Blood pressure is 138/82, pulse of 90. Temperature 97.7. He is 95% on 3 L nasal cannula. General description is an elderly male lying in bed in no distress. No tachypnea or accessory muscle of respiration use. HEENT: Shows no pallor or scleral icterus. Oral mucosa membrane is dry. No pharyngeal erythema or thrush. NECK: Trachea central, no thyromegaly. LUNGS: Unlabored breathing. Clear to auscultation anteriorly. HEART: S1, S2 is regular rate and rhythm. ABDOMEN: Soft. Tender in lower quadrant area. No guarding. No rigidity. EXTREMITIES: No edema feet. SKIN EXAMINATION: Right ankle with wound with no soft tissue, no surrounding erythema or any foul-smelling drainage. NEUROLOGICAL: Patient is awake, alert, oriented x3. Mood and affect normal. LABS: Hemoglobin is 12.1, white count 15.4, BUN of 25, creatinine 1.73. Liver enzymes are elevated. Lactic acid was as high as 10.4 down to 1.6. Amylase, lipase has been normal. Blood cultures currently pending. Urine has been negative. CT report as mentioned above. DIAGNOSTIC IMPRESSION AND PLAN: 1. Patient admitted to the hospital with abdominal pain. The patient did have evidence of enterocolitis with concern for possible ischemic colitis as his C difficile has been negative. The likely organisms that need to be covered are both aerobes and anaerobes. The patient also have elevated liver exam with concern for possible acute cholecystitis with abnormal ultrasound and HIDA scan has been ordered. The patient urine is negative. 2. The patient's right lateral ankle wound with no evidence of any cellulitis. PLAN: 1. Zosyn 3.375 g every 8 hours to cover for underlying skin colitis as well as cholecystitis. 2. Aquacel Silver dressing to the right lateral ankle wound. 3. Await HIDA scan. 4. We will follow up on clinical condition and culture to further adjust medication if needed. Thank you for this consultation. Will follow this patient along with you. MMODL / IJN: [id number] /
--- NOTE | 2018-07-23 06:57 | XR ---
EXAMINATION TYPE: XR chest 1V portable DATE OF EXAM: 07/23/2018 HISTORY: shortness of breath. REFERENCE: Previous study dated 07/22/2018. FINDINGS: The patient is intubated. ET tube crosses the hemidiaphragm but tip is not visualized. Ther e is a left internal jugular catheter in place. Its tip is in the superior vena cava. The heart is enlarged. There are bibasilar infiltrates. There are small, bilateral effusions. Overall aeration has improved. IMPRESSION: IMPROVED AERATION, BOTH LUNGS.
--- NOTE | 2018-07-23 08:21 | P.PN ---
Subjective Progress Note Date: 07/23/18 82-year-old female patient, a very poor historian, extremity of Dr. Collier, came into the emergency department because a few days history of lower abdominal pain. The patient had some limited nausea. No emesis. He did have bowel movements that were liquidy and 2 bouts were noted in the emergency department. The stool was positive for Hemoccult. On admission, the patient lactic acid level of 7.2. His AST was 516, ALP was 321 and alkaline phosphatase was 191 month and he had a lipase of 79 and a amylase of 122. 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 There was a prominent fluids within mildly thickened mid to lower abdominal small bowel loops in addition to liquid stool throughout the colon. This raises the suspicion for enterocolitis. The patient also has a large prostate and moderate circumferential bladder wall thickening and a gallbladder showing mild wall thickening. The patient received 2 L of IV fluids. No hypotension. Abdominal pain has somewhat subsided. The patient is still having some tenderness and lower abdominal wall area. Note that the patient has chronic atrial fibrillation. Nevertheless,, the patient is anticoagulated and the patient is therapeutic on his PT/INR admission. Other comorbidities include COPD, congestion heart failure, coronary artery disease with previous myocardial infarction, hypothyroidism, chronic A. fib failure, diabetes mellitus and history of dementia. He has severe arthritis and bilateral shoulder replacements. No recent antibiotic intake. No travel history. He is covered with IV Zosyn as an empiric antibiotic coverage. On 07/22/2018, I'm seeing this patient for a follow-up. I saw this patient emergency department yesterday and was suspicious that he may have a underlying colitis, possibly of an ischemic type. The patient got transferred to the ICU and overnight he was given IV fluids and he received fluids in the order of 4 L. He continued to have a lower urine output throughout the night. He still having some lower abdominal pain which is rather diffuse. His white cell count is elevated at 15.4 today. His lactic acid peaked at 10.4 and gradually coming down to 2.9. Meanwhile, the patient had some increased nausea. He did have an emesis yesterday and NG tube was inserted. The liver function studies are also abnormal with an AST of 318, ALT of 263 and an alkaline phosphatase of 52. Ultrasound the abdomen and the gallbladder was done and showed changes consistent with cholecystitis. He is covered with IV Zosyn as an empiric antibiotic coverage. Blood cultures been negative. He did develop severe metabolic acidosis and the bicarb level today is down to 11 within the night Of 21 and it creatinine came up to 1.7. INR today is at 3.1. Underlying rhythm is a chair fibrillation. She of any chest pain. No symptoms of shortness of breath. He has underlying dementia and he has diminished level of consciousness. GI consultation and general surgical consultation were both requested. A follow-up letter some of the abdomen shows no pneumoperitoneum 07/23/2018, the patient is still having some lower abdominal pain. The patient remains in intensive care unit. The patient is being resuscitated IV fluids and currently the patient is on a bicarb drip and he is also covered with IV Zosyn. He did have some bloody bowel movements yesterday, a total of 3 episodes and this morning he had a brown liquidy bowel movement. Previous stool evaluation was negative for C. diff. The patient is suspected to have an underlying ischemic colitis. Also, LFTs were abnormal and the patient had changes consistent with cholecystitis on the CAT scan of the abdomen and ultrasound of the right upper quadrant. On today's blood work, AST and ALP are downtrending. The bilirubin is at 1.2. The patient has improvement in the lactic acid level which is normalized. The white cell count is at 15.0. The patient has a serum bicarbonate is up to 26. Abdomen however remains quite tender in the mid in the lower abdominal wall bilaterally without any significant right upper quadrant tenderness. Gen. surgery even with the patient and they have made recommendations for a HIDA scan. INR today is at 1.7 and the patient at the [facility] is currently on hold. Clinically, he is awake yet weak and lethargic. NG tube is in place and the total amount of output overnight has been approximately 100 mL. He is afebrile. Renal function is impaired in the creatinine is up to 2.0. A triple lumen catheter was also inserted yesterday for IV access and hemodynamic monitoring. He remains on a Cardizem drip for rate control at the rate of 5 mg an hour. Objective - Vital Signs Vital signs: Vital Signs Temp 97.9 F 07/23/18 04:00 Pulse 95 07/23/18 07:00 Resp 20 07/23/18 07:00 BP 124/89 07/23/18 07:00 Pulse Ox 83 L 07/23/18 07:00 Intake & Output 07/22/18 07/23/18 07/23/18 18:59 06:59 18:59 Intake Total 1135 1300 100 Output Total 567 427 120 Balance 568 873 -20 Weight 81.3 kg 79.2 kg Intake: IV 985 1250 100 Dextrose 5% in Water 1, 700 1200 100 000 ml @ 100 mls/hr IV . [id number] [facility] with Sodium Bicarb (1 Meq/ml) 150 ml Rx#:[id number] Piperacillin-Tazobactam 3 50 50 .375 gm In Dextrose/Water 1 50ml.bag @ 12.5 mls/hr IVPB Q8HR [facility] Rx#: [id number] Sodium Chloride 0.9% 1, 235 000 ml @ 100 mls/hr IV . Q10H [facility] Rx#:[id number] Intake, IV Titration 150 50 Amount Diltiazem 50 mg In Sodium 50 50 Chloride 0.9% 40 ml @ Per Protocol IV .Q0M [facility] Rx#:[id number] Magnesium Sulfate-D5w Pmx 100 1 gm In Dextrose/Water 1 100ml.bag @ 100 mls/hr IVPB Q1H [facility] Rx#: [id number] Output: Gastric Drainage 50 75 Urine 365 427 45 Stool 152 Other: Voiding Method Indwelling Catheter Indwelling Catheter # Bowel Movements 1 - Exam GENERAL EXAM: Alert, active, comfortable in no apparent distress. Hard of hearing. The patient has an NG tube in place with minimal amount of output. HEAD: Normocephalic. EYES: Normal reaction of pupils, equal size. NOSE: Clear with pink turbinates. THROAT: No erythema or exudates. NECK: No masses, no difficulty in JVD. CHEST: No chest wall deformity. LUNGS: Equal air entry with no wheeze, rhonchi or dullness. Crackles in the right posterior base. Few crackles at lung bases bilaterally. CVS: Irregular S1 and S2 normal with no audible murmurs, irregular regular rhythm. ABDOMEN: No hepatosplenomegaly, normal bowel sounds, no guarding or rigidity. There is mild lower abdominal wall tenderness. No rebound tenderness. No guarding. Bowel sounds are hypoactive. SPINE: No scoliosis or deformity SKIN: No rashes CENTRAL NERVOUS SYSTEM: No focal deficits, tone is normal in all 4 extremities. The patient has dementia. He does not have good insight of his condition. He does not have any good recollection and memory on recent or old events. His fluctuation in mental status probably related to underlying sepsis, metabolic encephalopathy and dementia. Extremities: There is no significant peripheral edema. No clubbing, no cyanosis. Peripheral pulses are intact. The patient is a below amputation left lower extremity. - Labs CBC & Chem 7: 07/23/18 04:45 07/23/18 04:45 Labs: Abnormal Lab Results - Last 24 Hours (Table) 07/22/18 07/22/18 07/22/18 Range/Units 08:28 08:28 12:30 WBC (3.8-10.6) k/uL RBC (4.30-5.90) m/uL Hgb (13.0-17.5) gm/dL Hct (39.0-53.0) % RDW (11.5-15.5) % Neutrophils # (1.3-7.7) k/uL Lymphocytes # (1.0-4.8) k/uL PT 27.5 H (9.0-12.0) sec INR 3.1 H (<1.2) Sodium (137-145) mmol/L BUN (9-20) mg/dL Creatinine (0.66-1.25) mg/dL Glucose (74-99) mg/dL POC Glucose (mg/dL) (75-99) mg/dL Plasma Lactic Acid Néstor 5.7 H* 2.9 H* (0.7-2.0) mmol/L Calcium (8.4-10.2) mg/dL AST (17-59) U/L ALT (21-72) U/L Total Protein (6.3-8.2) g/dL Albumin (3.5-5.0) g/dL 07/22/18 07/22/18 07/22/18 Range/Units 12:31 13:04 18:51 WBC 15.4 H (3.8-10.6) k/uL RBC (4.30-5.90) m/uL Hgb 12.1 L (13.0-17.5) gm/dL Hct 38.4 L (39.0-53.0) % RDW 16.0 H (11.5-15.5) % Neutrophils # (1.3-7.7) k/uL Lymphocytes # (1.0-4.8) k/uL PT (9.0-12.0) sec INR (<1.2) Sodium (137-145) mmol/L BUN (9-20) mg/dL Creatinine (0.66-1.25) mg/dL Glucose (74-99) mg/dL POC Glucose (mg/dL) 193 H 153 H (75-99) mg/dL Plasma Lactic Acid Néstor (0.7-2.0) mmol/L Calcium (8.4-10.2) mg/dL AST (17-59) U/L ALT (21-72) U/L Total Protein (6.3-8.2) g/dL Albumin (3.5-5.0) g/dL 07/22/18 07/23/18 07/23/18 Range/Units 23:54 04:45 04:45 WBC 13.0 H (3.8-10.6) k/uL RBC 4.23 L (4.30-5.90) m/uL Hgb 11.5 L (13.0-17.5) gm/dL Hct 36.7 L (39.0-53.0) % RDW 16.1 H (11.5-15.5) % Neutrophils # 11.9 H (1.3-7.7) k/uL Lymphocytes # 0.5 L (1.0-4.8) k/uL PT (9.0-12.0) sec INR (<1.2) Sodium 136 L (137-145) mmol/L BUN 48 H (9-20) mg/dL Creatinine 2.00 H (0.66-1.25) mg/dL Glucose 125 H (74-99) mg/dL POC Glucose (mg/dL) 141 H (75-99) mg/dL Plasma Lactic Acid Néstor (0.7-2.0) mmol/L Calcium 7.6 L (8.4-10.2) mg/dL AST 131 H (17-59) U/L ALT 180 H (21-72) U/L Total Protein 5.3 L (6.3-8.2) g/dL Albumin 2.3 L (3.5-5.0) g/dL 07/23/18 07/23/18 Range/Units 04:45 06:07 WBC (3.8-10.6) k/uL RBC (4.30-5.90) m/uL Hgb (13.0-17.5) gm/dL Hct (39.0-53.0) % RDW (11.5-15.5) % Neutrophils # (1.3-7.7) k/uL Lymphocytes # (1.0-4.8) k/uL PT 15.7 H (9.0-12.0) sec INR 1.7 H (<1.2) Sodium (137-145) mmol/L BUN (9-20) mg/dL Creatinine (0.66-1.25) mg/dL Glucose (74-99) mg/dL POC Glucose (mg/dL) 120 H (75-99) mg/dL Plasma Lactic Acid Néstor (0.7-2.0) mmol/L Calcium (8.4-10.2) mg/dL AST (17-59) U/L ALT (21-72) U/L Total Protein (6.3-8.2) g/dL Albumin (3.5-5.0) g/dL Microbiology - Last 24 Hours (Table) 07/21/18 13:33 Blood Culture - Preliminary Blood No Growth after 24 hours 07/22/18 11:50 Urine Culture - Preliminary Urine,Catheterized Assessment and Plan Plan: 1 lower abdominal pain, acute, associated with lactic acidosis. Consider ischemic colitis . The patient continues to have lower abdominal pain and there is no improvement in his symptoms compared to yesterday. Nevertheless, hemodynamically stable, lactic acid level is improving, metabolic acidosis also improved, and the patient has a down trending in the liver function tests. White cell count is at 13.0. He is hemodynamically stable on no pressors. He is on IV Zosyn. 2 abnormal LFTs with dilated gallbladder. Rule out underlying cholecystitis. LFTs are down trending. Gen. surgery over with the patient and requested a HIDA scan. 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 Hearing 11 severe arthritis with bilateral shoulder and knee replacement 12 BPH 13. Debility and impaired performance and functional status second above- mentioned comorbidities 14 pseudotumor within the right lung , patient has fluid within the right fissure that has been visualized on previous CAT scans and chest x-rays. 15 hypertension 6. Acute kidney injury in the creatinine is up to 2.0 . Plan Will switch this patient to a D5 normal saline at the rate of 100 mL an hour. Continued IV Zosyn. Keep the patient nothing by mouth for now. Keep the NG tube in place and proceed with a CAT scan of the abdomen and pelvis with oral contrast only for better visualization of the bowel and intra-abdominal findings. Hold anticoagulation for now. Monitor renal function. General surgeries on the case. Infectious diseases on the case. We'll continue to follow. Prognosis poor baseline above-mentioned comorbidities. The blood cultures are still negative thus far.
[2018-07-23] MEDS: DILTIAZEM 50 MG in SODIUM CHLORIDE 0.9% 40 ML IV SCH ×2 (08:53→19:20)
[2018-07-23] MEDS: PANTOPRAZOLE 40 MG/10 ML VIAL IVP SCH (09:24)
[2018-07-23] MEDS: METOPROLOL TARTRATE 50 MG TAB PO SCH ×2 (09:24→20:21)
[2018-07-23] MEDS: DEXTROSE 5% IN WATER 1,000 ML with SODIUM BICARB (1 MEQ/ML) 150 ML IV SCH (09:29)
[2018-07-23] MEDS: PIPERACILLIN-TAZOBACTAM 3.375 GM in DEXTROSE/WATER 1 50ML.BAG IVPB SCH ×2 (10:11→15:20)
--- NOTE | 2018-07-23 13:18 | NM ---
EXAMINATION TYPE: NM hepatobiliary w CCK DATE OF EXAM: 07/23/2018 COMPARISON: NONE HISTORY: Upper quadrant pain TECHNIQUE: After the intravenous administration of 5.2 mCi Tc 99m Mebrofenin hepatobiliary scintigrap hy is performed. Immediate images post injection. FINDINGS: There is satisfactory initial accumulation of tracer by the liver. The gallbladder is visualized wit hin 10 minutes. The small bowel activity is noted within 15 minutes. At one hour CCK was administer ed, patient was injected with 1.6 mcg of Kinevac, and gallbladder ejection fraction is calculated at 63 %, in the normal range. Therefore there is no scintigraphic evidence of cystic or common bile cece t obstruction to suggest acute cholecystitis or gallbladder dyskinesia. IMPRESSION: NORMAL NUCLEAR MEDICINE HEPATOBILIARY SCAN WITH EJECTION FRACTION CALCULATION.
[2018-07-23 13:43] LABS: Glucose,Whole Blood 151 mg/dL (75-99)
--- NOTE | 2018-07-23 13:53 | P.PN ---
Subjective Progress Note Date: 07/23/18 CHIEF COMPLAINT: Abdominal pain HISTORY OF PRESENT ILLNESS: The patient is an 82-year-old gentleman with history of being very hard of hearing who came in after having abdominal pain with blood in stools. Consultation was obtained for concern of enterocolitis. Additionally, computed tomography scan and ultrasound was high suspicion for acute cholecystitis. Patient reports today feeling much better. Abdominal pain has improved. PHYSICAL EXAM: GENERAL: Well-developed in no distress. HEENT: No scleral icterus. Extraocular movements grossly intact. Hard of hearing. NGT in place. NECK: Supple without lymphadenopathy. CHEST: Nonlabored respirations with equal bilateral excursions. CARDIOVASCULAR: Irregular rate and rhythm. Distal 2+ pulses. ABDOMEN: Soft. No peritonitis. Decreased tenderness lower abdomen MUSCULOSKELETAL: No clubbing, cyanosis, or edema. BKA of the left leg. Arthritic changes of the bilateral MCP of the hands NEURO: No focal or lateralizing signs. C PSYCH: Appropriate affect. Alert and oriented to person, place and time. SKIN: Good skin turgor. Well perfused. ASSESSMENT: 1. Computed tomography scan for cholecystitis 2. Abdominal pain 3. Ultrasound abnormal for cholecystitis PLAN: 1. I had ordered a nuclear study of the gallbladder to exclude acute cholecystitis. Results are negative for acute cholecystitis. 2. Abdominal pain has improved. No surgical intervention needed. 3. May start diet once cleared for swallowing. 4. Continue antibiotics 5. Continue ICU care Objective - Vital Signs Vital signs: Vital Signs Temp 98.3 F 07/23/18 08:00 Pulse 87 07/23/18 09:30 Resp 36 H 07/23/18 09:30 BP 152/80 07/23/18 09:30 Pulse Ox 96 07/23/18 09:30 Intake & Output 07/22/18 07/23/18 07/23/18 18:59 06:59 18:59 Intake Total 1135 1300 350 Output Total 567 427 221 Balance 568 873 129 Weight 81.3 kg 79.2 kg Intake: IV 985 1250 300 Dextrose 5% in Water 1, 700 1200 300 000 ml @ 100 mls/hr IV . [id number] [facility] with Sodium Bicarb (1 Meq/ml) 150 ml Rx#:[id number] Piperacillin-Tazobactam 3 50 50 .375 gm In Dextrose/Water 1 50ml.bag @ 12.5 mls/hr IVPB Q8HR [facility] Rx#: [id number] Sodium Chloride 0.9% 1, 235 000 ml @ 100 mls/hr IV . Q10H [facility] Rx#:[id number] Intake, IV Titration 150 50 50 Amount Diltiazem 50 mg In Sodium 50 50 50 Chloride 0.9% 40 ml @ Per Protocol IV .Q0M [facility] Rx#:[id number] Magnesium Sulfate-D5w Pmx 100 1 gm In Dextrose/Water 1 100ml.bag @ 100 mls/hr IVPB Q1H [facility] Rx#: [id number] Output: Gastric Drainage 50 75 Urine 365 427 145 Stool 152 1 Other: Voiding Method Indwelling Catheter Indwelling Catheter # Bowel Movements 1 - Labs CBC & Chem 7: 07/23/18 04:45 07/23/18 04:45 Labs: Abnormal Lab Results - Last 24 Hours (Table) 07/22/18 07/22/18 07/22/18 Range/Units 12:30 12:31 13:04 WBC 15.4 H (3.8-10.6) k/uL RBC (4.30-5.90) m/uL Hgb 12.1 L (13.0-17.5) gm/dL Hct 38.4 L (39.0-53.0) % RDW 16.0 H (11.5-15.5) % Neutrophils # (1.3-7.7) k/uL Lymphocytes # (1.0-4.8) k/uL PT (9.0-12.0) sec INR (<1.2) Sodium (137-145) mmol/L BUN (9-20) mg/dL Creatinine (0.66-1.25) mg/dL Glucose (74-99) mg/dL POC Glucose (mg/dL) 193 H (75-99) mg/dL Plasma Lactic Acid Néstor 2.9 H* (0.7-2.0) mmol/L Calcium (8.4-10.2) mg/dL AST (17-59) U/L ALT (21-72) U/L Total Protein (6.3-8.2) g/dL Albumin (3.5-5.0) g/dL 07/22/18 07/22/18 07/23/18 Range/Units 18:51 23:54 04:45 WBC 13.0 H (3.8-10.6) k/uL RBC 4.23 L (4.30-5.90) m/uL Hgb 11.5 L (13.0-17.5) gm/dL Hct 36.7 L (39.0-53.0) % RDW 16.1 H (11.5-15.5) % Neutrophils # 11.9 H (1.3-7.7) k/uL Lymphocytes # 0.5 L (1.0-4.8) k/uL PT (9.0-12.0) sec INR (<1.2) Sodium (137-145) mmol/L BUN (9-20) mg/dL Creatinine (0.66-1.25) mg/dL Glucose (74-99) mg/dL POC Glucose (mg/dL) 153 H 141 H (75-99) mg/dL Plasma Lactic Acid Néstor (0.7-2.0) mmol/L Calcium (8.4-10.2) mg/dL AST (17-59) U/L ALT (21-72) U/L Total Protein (6.3-8.2) g/dL Albumin (3.5-5.0) g/dL 07/23/18 07/23/18 07/23/18 Range/Units 04:45 04:45 06:07 WBC (3.8-10.6) k/uL RBC (4.30-5.90) m/uL Hgb (13.0-17.5) gm/dL Hct (39.0-53.0) % RDW (11.5-15.5) % Neutrophils # (1.3-7.7) k/uL Lymphocytes # (1.0-4.8) k/uL PT 15.7 H (9.0-12.0) sec INR 1.7 H (<1.2) Sodium 136 L (137-145) mmol/L BUN 48 H (9-20) mg/dL Creatinine 2.00 H (0.66-1.25) mg/dL Glucose 125 H (74-99) mg/dL POC Glucose (mg/dL) 120 H (75-99) mg/dL Plasma Lactic Acid Néstor (0.7-2.0) mmol/L Calcium 7.6 L (8.4-10.2) mg/dL AST 131 H (17-59) U/L ALT 180 H (21-72) U/L Total Protein 5.3 L (6.3-8.2) g/dL Albumin 2.3 L (3.5-5.0) g/dL Microbiology - Last 24 Hours (Table) 07/21/18 13:33 Blood Culture - Preliminary Blood No Growth after 24 hours 07/22/18 11:50 Urine Culture - Preliminary Urine,Catheterized - Imaging and Cardiology CT scan - abdomen: report reviewed, image reviewed CT scan - pelvis: report reviewed (Consistent with enterocolitis), image reviewed US - abdomen: report reviewed, image reviewed HIDA scan of gallbladder study negative for acute cholecystitis Assessment and Plan (1) Abnormal CT of the abdomen Current Visit: Yes Status: Acute Code(s): R93.5 - ABN FINDINGS ON DX IMAGING OF ABD REGIONS, INC RETROPERITON SNOMED Code(s): 33071730642032950 (2) Enterocolitis Current Visit: Yes Status: Acute Code(s): K52.9 - NONINFECTIVE GASTROENTERITIS AND COLITIS, UNSPECIFIED SNOMED Code(s): 16119608 (3) Abdominal pain Current Visit: Yes Status: Acute Code(s): R10.9 - UNSPECIFIED ABDOMINAL PAIN SNOMED Code(s): 36643303 (4) Coagulopathy Current Visit: Yes Status: Acute Code(s): D68.9 - COAGULATION DEFECT, UNSPECIFIED SNOMED Code(s): 03226771 (5) Elevated lactic acid level Current Visit: Yes Status: Acute Code(s): R79.89 - OTHER SPECIFIED ABNORMAL FINDINGS OF BLOOD CHEMISTRY SNOMED Code(s): 4256020 (6) GI bleed Current Visit: Yes Status: Acute Code(s): K92.2 - GASTROINTESTINAL HEMORRHAGE, UNSPECIFIED SNOMED Code(s): 66020937 (7) Lactic acidosis Current Visit: Yes Status: Acute Code(s): E87.2 - ACIDOSIS SNOMED Code(s) : 91848581 (8) Leukocytosis Current Visit: Yes Status: Acute Code(s): D72.829 - ELEVATED WHITE BLOOD CELL COUNT, UNSPECIFIED SNOMED Code(s): 760812832 (9) Atrial fibrillation with RVR Current Visit: No Status: Acute Code(s): I48.91 - UNSPECIFIED ATRIAL FIBRILLATION SNOMED Code(s): 696841369769452 (10) S/P BKA (below knee amputation) unilateral Current Visit: No Status: Acute Code(s): Z89.519 - ACQUIRED ABSENCE OF UNSPECIFIED LEG BELOW KNEE SNOMED Code(s): 916264805
[2018-07-23] MEDS: IOPAMIDOL-300 CONTRAST 30 ML VIAL (ORAL USE) PO PRN ×2 (14:51→16:04)
--- NOTE | 2018-07-23 16:08 | P.PN ---
Subjective Progress Note Date: 07/23/18 This is an 82-year-old male patient of Dr. kelly. Patient presented to the emergency room with complaints of abdominal pain and diarrhea patient also states he's been having episodes of emesis. Patient has a known past medical history history of atrial fibrillation which she takes Coumadin. Chest pain, heart failure GERD, hyperlipidemia, hypertension and prostate disorder. Patient is extremely hard of hearing and therefore a poor historian. CT of abdomen completed in emergency room showing a small bilateral pleural effusion, borderline cardiomegaly, mild diffuse tenderness Scaccia type II. Correlate for fluid overload state. Partially visualized rounded area in the right mid to lower lung on the first slice this could represent a mass or pseudotumor due to fluid within the minor seizure. Consider initial assessment chest x-ray. Prominent fluid with a mildly thickened mid to lower abdominal small bowel loops additional liquid stool throughout the colon. Correlate for enteritis or enterocolitis. Prostatomegaly. Chest x-ray completed showing masslike areas of consolidation the right greater than left midlung. This was present to some extent on the 11/07/2017 exam making loculated pleural fluid more likely than underlying neoplasm. CT completed showing atrial fibrillation with rapid ventricular response with premature ventricular or aberrantly conducted complexes. Patient was started on Cardizem drip. Initial WBC 15.2. Lactic acid 6.4. Lactic acid increasing to 10.4. Patient received 4 L of IV fluid per critical care team. Repeat lactic acid 5.7. AST 318 ALT 263 and alkaline phosphatase 152. INR is 3.1 patient admitted to the intensive care unit and Dr. Calzada per critical care consulted. Dr. Whaley per GI service is consulted. Dr. Shahid per surgical service is consulted. Per nursing staff patient did have episodes of approximately 150 mL of bloody stool this a.m. Discussed case at bedside with Dr. Calzada per critical care. Concerns for ischemic colitis. Orders placed to reverse Coumadin with vitamin K. Bicarb gtt initiated per critical care. Abdominal x-ray ordered per critical care. Surgical services paged per nursing staff. On 07/23/2018 patient was seen and examined in ICU he is alert and oriented 3 in no apparent distress, he has NG tube in, he is complaining of abdominal pain , he had episodes of bloody diarrhea are clear, he denies any vomiting, he denies any chest pain or shortness of breath no cough and no urinary symptoms Objective - Vital Signs Vital signs: Vital Signs Temp 98.3 F 07/23/18 13:12 Pulse 93 07/23/18 15:00 Resp 17 07/23/18 15:00 BP 126/77 07/23/18 15:00 Pulse Ox 97 07/23/18 15:00 Intake & Output 07/22/18 07/23/18 07/23/18 18:59 06:59 18:59 Intake Total 1135 1300 1000.0 Output Total 567 427 556 Balance 568 873 444.0 Weight 81.3 kg 79.2 kg Intake: IV 985 1250 950.0 Dextrose 5% in Water 1, 700 1200 200 000 ml @ 100 mls/hr IV . Q77P29P FOSTER with Sodium Bicarb (1 Meq/ml) 150 ml Rx#:[id number] Dextrose 5% water 1000ml 700 Piperacillin-Tazobactam 3 50 50 50.0 .375 gm In Dextrose/Water 1 50ml.bag @ 12.5 mls/hr IVPB Q8HR [facility] Rx#: [id number] Sodium Chloride 0.9% 1, 235 000 ml @ 100 mls/hr IV . Q10H [facility] Rx#:[id number] Intake, IV Titration 150 50 50 Amount Diltiazem 50 mg In Sodium 50 50 50 Chloride 0.9% 40 ml @ Per Protocol IV .Q0M [facility] Rx#:[id number] Magnesium Sulfate-D5w Pmx 100 1 gm In Dextrose/Water 1 100ml.bag @ 100 mls/hr IVPB Q1H [facility] Rx#: [id number] Output: Gastric Drainage 50 75 Urine 365 427 480 Stool 152 1 Other: Voiding Method Indwelling Catheter Indwelling Catheter Indwelling Catheter # Bowel Movements 1 - Exam Head normocephalic and atraumatic Neck supple no JVD no goiter Lungs clear to auscultation bilaterally no wheezing or crackles Heart regular rate and rhythm S1-S2, no rub or gallop Abdomen slightly distended. Diffuse tenderness throughout abdomen. Hypo-bowel sounds Extremities no edema Neuro alert and orientated to 3 - Labs CBC & Chem 7: 07/23/18 04:45 07/23/18 04:45 Labs: Abnormal Lab Results - Last 24 Hours (Table) 07/22/18 07/22/18 07/23/18 Range/Units 18:51 23:54 04:45 WBC 13.0 H (3.8-10.6) k/uL RBC 4.23 L (4.30-5.90) m/uL Hgb 11.5 L (13.0-17.5) gm/dL Hct 36.7 L (39.0-53.0) % RDW 16.1 H (11.5-15.5) % Neutrophils # 11.9 H (1.3-7.7) k/uL Lymphocytes # 0.5 L (1.0-4.8) k/uL PT (9.0-12.0) sec INR (<1.2) Sodium (137-145) mmol/L BUN (9-20) mg/dL Creatinine (0.66-1.25) mg/dL Glucose (74-99) mg/dL POC Glucose (mg/dL) 153 H 141 H (75-99) mg/dL Calcium (8.4-10.2) mg/dL AST (17-59) U/L ALT (21-72) U/L Total Protein (6.3-8.2) g/dL Albumin (3.5-5.0) g/dL 07/23/18 07/23/18 07/23/18 Range/Units 04:45 04:45 06:07 WBC (3.8-10.6) k/uL RBC (4.30-5.90) m/uL Hgb (13.0-17.5) gm/dL Hct (39.0-53.0) % RDW (11.5-15.5) % Neutrophils # (1.3-7.7) k/uL Lymphocytes # (1.0-4.8) k/uL PT 15.7 H (9.0-12.0) sec INR 1.7 H (<1.2) Sodium 136 L (137-145) mmol/L BUN 48 H (9-20) mg/dL Creatinine 2.00 H (0.66-1.25) mg/dL Glucose 125 H (74-99) mg/dL POC Glucose (mg/dL) 120 H (75-99) mg/dL Calcium 7.6 L (8.4-10.2) mg/dL AST 131 H (17-59) U/L ALT 180 H (21-72) U/L Total Protein 5.3 L (6.3-8.2) g/dL Albumin 2.3 L (3.5-5.0) g/dL 07/23/18 Range/Units 13:35 WBC (3.8-10.6) k/uL RBC (4.30-5.90) m/uL Hgb (13.0-17.5) gm/dL Hct (39.0-53.0) % RDW (11.5-15.5) % Neutrophils # (1.3-7.7) k/uL Lymphocytes # (1.0-4.8) k/uL PT (9.0-12.0) sec INR (<1.2) Sodium (137-145) mmol/L BUN (9-20) mg/dL Creatinine (0.66-1.25) mg/dL Glucose (74-99) mg/dL POC Glucose (mg/dL) 151 H (75-99) mg/dL Calcium (8.4-10.2) mg/dL AST (17-59) U/L ALT (21-72) U/L Total Protein (6.3-8.2) g/dL Albumin (3.5-5.0) g/dL Microbiology - Last 24 Hours (Table) 07/22/18 11:50 Urine Culture - Final Urine,Catheterized 07/21/18 13:33 Blood Culture - Preliminary Blood No Growth after 24 hours Assessment and Plan Plan: 1. lower abdominal pain, acute, associated with lactic acidosis. CT abdomen completed showing prominent fluid within mildly thickened mid to lower abdominal small bowel loops been additional liquid stool throughout the colon. Correlate for enteritis and enterocolitis. Lactic acid elevated as high as 10.4. Patient did receive 4 L of IV fluid per critical care. Repeat lactic 5.6. Per nursing staff patient did have episode of approximately 150 mL of bloody stool this a.m.. GI and surgical services consulted. Abdominal x-ray completed per critical care showing persistent overall nonobstructive bowel gas pattern. Bicarb drip has been ordered per critical care vitamin K order to reverse Coumadin. Patient currently on Zosyn for antibiotic. WBC increasing to 19.6. Critical care team following closely. 2. abnormal LFTs with dilated gallbladder. Abdominal ultrasound completed showing large gallbladder mild wall thickening and pericholecystic fluid consistent with cholecystitis. No gallstones identified no dilated ducts. Dr. Shahid for surgical service is consulted. AST increasing to 318 ALT increasing to 263 and alkaline phosphatase 152 3. diarrhea with lactic acidosis. C. diff negative 4. leukocytosis and lactic acidosis. Initial lactic acid 7.2. Lactic acid increasing to as high as 10.4. Patient received 4 L of IV fluid per critical care. This a.m. lactic acid 5.7. Sepsis protocol initiated. Currently on Zosyn for antibiotic 5. history of coronary artery disease 6. congestion heart failure with ejection fraction of 45-50% 7. chronic atrial fibrillation maintained on long-term medical condition with warfarin with therapeutic PT/INR. Coumadin on hold due to GI bleed. INR 3.1. Vit K has been ordered per critical care 8. 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 History of dementia 10. History of Hearing 11. 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 History of BPH 13. Debility and impaired performance and functional status second above- mentioned comorbidities 14. pseudotumor within the right lung , patient has fluid within the right fissure that has been visualized on previous CAT scans and chest x-rays. 15. History of essential hypertension. 16. Per nursing staff concerns for aspiration. NG tube was placed to LIS. X- ray obtained showing overall stable findings, cardiomegaly with central vascular congestion and bilateral perihilar edema and/or infiltrate is small to tiny right greater than left pleural effusions are redemonstrated. Dr. Calzada following for pulmonary and critical care. Patient currently on Zosyn 17. Atrial fibrillation with rapid ventricular response. Patient does have history of A. fib and was on Coumadin.. Patient started on Cardizem drip. Due to possible surgical intervention. Coumadin has been reversed with vitamin K per critical care team. Heart rate currently in the 70s and 80s. 18. Low urine output. Patient was given 4 L of fluid throughout night. Critical care team following 19. Acute kidney injury. Creatinine increasing to 1.73 and bun 35. patient did received fluid resuscitation per sepsis protocol per critical care. CT to monitor closely DVT prophylaxis SCDs and GI prophylaxis Protonix
--- NOTE | 2018-07-23 16:31 | PN ---
PROGRESS NOTE DATE OF SERVICE: 07/23/2018. REASON FOR FOLLOWUP: 1. Possible ischemic colitis. 2. Right lateral ankle wound. INTERVAL HISTORY: The patient is afebrile. He is hemodynamically stable, currently not on any pressor support. The patient denies having any chest pain or shortness of breath or cough. He still has some abdominal pain, but did mention it is improving. Did have 2 loose stools but no blood or mucus in it per the RN. EXAMINATION: Blood pressure 139/72 with a pulse of 93, temperature 98.3. He is 96% on room air. General description is an elderly male lying in bed in no distress. Respiratory system: Unlabored breathing with decreased breath sounds in the bases. No wheeze. Heart S1, S2. Regular rate and rhythm. Abdomen soft. No tenderness. Right leg wound currently dressed up, no obvious drainage on the dressing. LABS: White count down to 13,000 with a BUN of 48, creatinine is 2.0. Blood culture has been negative so far. DIAGNOSTIC IMPRESSION AND PLAN: 1. Patient with admission to the hospital with sepsis, concern for possible ischemic colitis plus-minus acute cholecystitis. However, the HIDA scan was negative. The patient is currently being maintained on Zosyn that will be continued. For now watching his clinical course closely. 2. The patient with right lateral ankle wound. Local wound care with Aquacel dressing to keep the area off the pressure. MMODL / IJN: [id number] /
--- NOTE | 2018-07-23 16:56 | CT ---
EXAMINATION TYPE: CT abdomen pelvis wo con DATE OF EXAM: 07/23/2018 COMPARISON: 07/21/2018 HISTORY: Lower abdominal pain. CT DLP: 734.4 mGycm Automated exposure control for dose reduction was used. TECHNIQUE: Helical acquisition of images was performed from the lung bases through the pelvis. FINDINGS: Exam performed with no contrast. There are bilateral pleural effusions. Heart is enlarged. There is bilateral basilar pulmonary infilt rate and atelectasis. Aorta is atheromatous. Liver shows no focal defect. Spleen appears normal. There is no evidence of pancreatic mass. Gallblad blanquita appears normal. There is no adrenal mass. Kidneys have normal size. There is no hydronephrosis. There is renal vascul ar calcification. There is no retroperitoneal adenopathy. There is diffuse wall thickening of the rig ht colon. There is mild wall thickening of the sigmoid colon. There is subcutaneous edema around the abdomen. There is perinephric fat stranding and also some mesenteric mild edema. The bony structures are intact. There is Espitia catheter in the urinary bladder. There is no pelvic mass. There is no sign of free air. IMPRESSION: THERE IS NEW EXTENSIVE WALL THICKENING OF THE RIGHT COLON AND THE SIGMOID COLON COMPARED TO RECENT EX AM. ISCHEMIC COLITIS SHOULD BE CONSIDERED. CARDIOMEGALY WITH PLEURAL EFFUSIONS AND BASILAR PULMONARY INFILTRATES CONSISTENT WITH CONGESTIVE HEAR T FAILURE. PULMONARY INFILTRATES ARE INCREASED COMPARED TO LAST EXAM. DIFFUSE SUBCUTANEOUS AND INTRA-ABDOMINAL EDEMA.
[2018-07-23 18:18] LABS: Glucose,Whole Blood 131 mg/dL (75-99)
[2018-07-23] MEDS: SERTRALINE 50 MG TAB PO SCH (20:21)
[2018-07-24] MEDS: PIPERACILLIN-TAZOBACTAM 3.375 GM in DEXTROSE/WATER 1 50ML.BAG IVPB SCH ×3 (00:16→16:45)
[2018-07-24 00:22] LABS: Glucose,Whole Blood 153 mg/dL (75-99)
[2018-07-24] MEDS: INSULIN ASPART 100 UNIT/ML 1 ML 10 ML VIAL SQ SCH ×4 (00:24→17:22)
[2018-07-24 04:50] LABS: Basophils % (A) 0 %; Eosinophils # (A) 0.1 k/uL (0-0.7); Eosinophils % (A) 1 %; HCT 33.1 % (39.0-53.0); HGB 10.4 gm/dL (13.0-17.5); Hypochromasia Slight; Lymphocytes # (A) 0.7 k/uL (1.0-4.8); Lymphocytes % (A) 6 %; MCH 27.5 pg (25.0-35.0); MCHC 31.5 g/dL (31.0-37.0); MCV 87.2 fL (80.0-100.0); Mean Platelet Volume 8.3; Monocytes # (A) 0.4 k/uL (0-1.0); Monocytes % (A) 3 %; Neutrophils # (A) 9.9 k/uL (1.3-7.7); Neutrophils % (A) 89 %; Platelet Count 133 k/uL (150-450); RDW 15.9 % (11.5-15.5); WBC 11.1 k/uL (3.8-10.6)
[2018-07-24 04:55] LABS: INR 1.4 (<1.2); Prothrombin Time 12.8 sec (9.0-12.0)
[2018-07-24 05:01] LABS: Albumin 2.2 g/dL (3.5-5.0); Calcium 7.3 mg/dL (8.4-10.2); Magnesium 2.1 mg/dL (1.6-2.3); Potassium 3.3 mmol/L (3.5-5.1); Total Bilirubin 0.9 mg/dL (0.2-1.3); Total Protein 5.1 g/dL (6.3-8.2)
[2018-07-24] MEDS ORDERED: Potassium Replacement Protocol 1 EACH MISC MISCELLANE PRN (05:52)
[2018-07-24 06:18] LABS: Glucose,Whole Blood 118 mg/dL (75-99)
[2018-07-24] MEDS: LEVOTHYROXINE 25 MCG TAB PO SCH (06:27)
[2018-07-24] MEDS: POTASSIUM BICARBONATE/CIT AC 20 MEQ TABLET.EFF NG-TUBE SCH ×2 (06:27→08:07)
[2018-07-24] MEDS: METOPROLOL TARTRATE 50 MG TAB PO SCH ×2 (08:07→20:42)
[2018-07-24] MEDS: PANTOPRAZOLE 40 MG/10 ML VIAL IVP SCH (08:07)
[2018-07-24] MEDS: DEXTROSE 5% IN WATER 1,000 ML with SODIUM BICARB (1 MEQ/ML) 150 ML IV SCH ×3 (08:14→08:18)
[2018-07-24] MEDS ORDERED: DEXTROSE 5% IN WATER 1,000 ML IV SCH (08:15)
[2018-07-24] MEDS: DEXTROSE 5%-0.9% NACL 1,000 ML IV SCH ×2 (08:57→20:50)
--- NOTE | 2018-07-24 11:27 | P.PN ---
Subjective Progress Note Date: 07/24/18 82-year-old female patient, a very poor historian, extremity of Dr. Collier, came into the emergency department because a few days history of lower abdominal pain. The patient had some limited nausea. No emesis. He did have bowel movements that were liquidy and 2 bouts were noted in the emergency department. The stool was positive for Hemoccult. On admission, the patient lactic acid level of 7.2. His AST was 516, ALP was 321 and alkaline phosphatase was 191 month and he had a lipase of 79 and a amylase of 122. 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 There was a prominent fluids within mildly thickened mid to lower abdominal small bowel loops in addition to liquid stool throughout the colon. This raises the suspicion for enterocolitis. The patient also has a large prostate and moderate circumferential bladder wall thickening and a gallbladder showing mild wall thickening. The patient received 2 L of IV fluids. No hypotension. Abdominal pain has somewhat subsided. The patient is still having some tenderness and lower abdominal wall area. Note that the patient has chronic atrial fibrillation. Nevertheless,, the patient is anticoagulated and the patient is therapeutic on his PT/INR admission. Other comorbidities include COPD, congestion heart failure, coronary artery disease with previous myocardial infarction, hypothyroidism, chronic A. fib failure, diabetes mellitus and history of dementia. He has severe arthritis and bilateral shoulder replacements. No recent antibiotic intake. No travel history. He is covered with IV Zosyn as an empiric antibiotic coverage. On 07/22/2018, I'm seeing this patient for a follow-up. I saw this patient emergency department yesterday and was suspicious that he may have a underlying colitis, possibly of an ischemic type. The patient got transferred to the ICU and overnight he was given IV fluids and he received fluids in the order of 4 L. He continued to have a lower urine output throughout the night. He still having some lower abdominal pain which is rather diffuse. His white cell count is elevated at 15.4 today. His lactic acid peaked at 10.4 and gradually coming down to 2.9. Meanwhile, the patient had some increased nausea. He did have an emesis yesterday and NG tube was inserted. The liver function studies are also abnormal with an AST of 318, ALT of 263 and an alkaline phosphatase of 52. Ultrasound the abdomen and the gallbladder was done and showed changes consistent with cholecystitis. He is covered with IV Zosyn as an empiric antibiotic coverage. Blood cultures been negative. He did develop severe metabolic acidosis and the bicarb level today is down to 11 within the night Of 21 and it creatinine came up to 1.7. INR today is at 3.1. Underlying rhythm is a chair fibrillation. She of any chest pain. No symptoms of shortness of breath. He has underlying dementia and he has diminished level of consciousness. GI consultation and general surgical consultation were both requested. A follow-up letter some of the abdomen shows no pneumoperitoneum 07/23/2018, the patient is still having some lower abdominal pain. The patient remains in intensive care unit. The patient is being resuscitated IV fluids and currently the patient is on a bicarb drip and he is also covered with IV Zosyn. He did have some bloody bowel movements yesterday, a total of 3 episodes and this morning he had a brown liquidy bowel movement. Previous stool evaluation was negative for C. diff. The patient is suspected to have an underlying ischemic colitis. Also, LFTs were abnormal and the patient had changes consistent with cholecystitis on the CAT scan of the abdomen and ultrasound of the right upper quadrant. On today's blood work, AST and ALP are downtrending. The bilirubin is at 1.2. The patient has improvement in the lactic acid level which is normalized. The white cell count is at 15.0. The patient has a serum bicarbonate is up to 26. Abdomen however remains quite tender in the mid in the lower abdominal wall bilaterally without any significant right upper quadrant tenderness. Gen. surgery even with the patient and they have made recommendations for a HIDA scan. INR today is at 1.7 and the patient at the [facility] is currently on hold. Clinically, he is awake yet weak and lethargic. NG tube is in place and the total amount of output overnight has been approximately 100 mL. He is afebrile. Renal function is impaired in the creatinine is up to 2.0. A triple lumen catheter was also inserted yesterday for IV access and hemodynamic monitoring. He remains on a Cardizem drip for rate control at the rate of 5 mg an hour. 07/24/2018, the patient is doing well. His abdominal pain has subsided and the patient is having less of an abdominal pain on today's evaluation. The patient clinically is improved. He is awake and alert. He is following simple commands. NG tube is in place. He remains nothing by mouth. A repeat CAT scan of the abdomen and pelvis was done yesterday and showed extensive wall thickening of the right colon and the sigmoid colon consistent with ischemic colitis. The patient also has cardiomegaly. Small bilateral pleural effusion also present. The patient is afebrile. No further episodes of GI bleed for now. Hemoglobin is stable. Lactic acid acid levels are normalized. White cell count is also improving. The patient had metabolic acidosis which has recovered. Liver functions is also improving. Output from the NG tube is minimal at this point. No signs of any respiratory distress. He remains on IV Zosyn. Anticoagulation is currently on hold. General surgeries on the case. Objective - Vital Signs Vital signs: Vital Signs Temp 98.1 F 07/24/18 08:00 Pulse 82 07/24/18 09:30 Resp 18 07/24/18 09:30 BP 141/92 07/24/18 09:30 Pulse Ox 94 L 07/24/18 09:30 Intake & Output 07/23/18 07/24/18 07/24/18 18:59 06:59 18:59 Intake Total 1387.5 1325.25 225.0 Output Total 698 580 75 Balance 689.5 745.25 150.0 Weight 77.5 kg Intake: IV 1287.5 1312.5 200 Dextrose 5% in Water 1, 200 000 ml @ 100 mls/hr IV . [id number] [facility] with Sodium Bicarb (1 Meq/ml) 150 ml Rx#:[id number] Dextrose 5% water 1000ml 1000 1300 Dextrose 5%-0.9% NaCl 1, 200 000 ml @ 75 mls/hr IV . [id number] [facility] Rx#:[id number] Piperacillin-Tazobactam 3 87.5 12.5 .375 gm In Dextrose/Water 1 50ml.bag @ 12.5 mls/hr IVPB Q8HR [facility] Rx#: [id number] Intake, IV Titration 100 12.75 25.0 Amount Diltiazem 50 mg In Sodium 100 12.75 Chloride 0.9% 40 ml @ Per Protocol IV .Q0M [facility] Rx#:[id number] Piperacillin-Tazobactam 3 25.0 .375 gm In Dextrose/Water 1 50ml.bag @ 12.5 mls/hr IVPB Q8HR [facility] Rx#: [id number] Output: Gastric Drainage 75 Urine 620 580 75 Stool 3 Other: Voiding Method Indwelling Catheter Indwelling Catheter Indwelling Catheter - Exam GENERAL EXAM: Alert, active, comfortable in no apparent distress. Hard of hearing. The patient has an NG tube in place with minimal amount of output. HEAD: Normocephalic. EYES: Normal reaction of pupils, equal size. NOSE: Clear with pink turbinates. THROAT: No erythema or exudates. NECK: No masses, no difficulty in JVD. CHEST: No chest wall deformity. LUNGS: Equal air entry with no wheeze, rhonchi or dullness. Crackles in the right posterior base. Few crackles at lung bases bilaterally. CVS: Irregular S1 and S2 normal with no audible murmurs, irregular regular rhythm. ABDOMEN: No hepatosplenomegaly, normal bowel sounds, no guarding or rigidity. There is mild lower abdominal wall tenderness. Has improved significantly and the patient is much more soft compared to yesterday. No rebound tenderness. No guarding. Bowel sounds are hypoactive. SPINE: No scoliosis or deformity SKIN: No rashes CENTRAL NERVOUS SYSTEM: No focal deficits, tone is normal in all 4 extremities. The patient has dementia. He does not have good insight of his condition. He does not have any good recollection and memory on recent or old events. His fluctuation in mental status probably related to underlying sepsis, metabolic encephalopathy and dementia. Extremities: There is no significant peripheral edema. No clubbing, no cyanosis. Peripheral pulses are intact. The patient is a below amputation left lower extremity. - Labs CBC & Chem 7: 07/24/18 04:40 07/24/18 04:40 Labs: Abnormal Lab Results - Last 24 Hours (Table) 07/23/18 07/23/18 07/24/18 Range/Units 13:35 18:17 00:20 WBC (3.8-10.6) k/uL RBC (4.30-5.90) m/uL Hgb (13.0-17.5) gm/dL Hct (39.0-53.0) % RDW (11.5-15.5) % Plt Count (150-450) k/uL Neutrophils # (1.3-7.7) k/uL Lymphocytes # (1.0-4.8) k/uL PT (9.0-12.0) sec INR (<1.2) Potassium (3.5-5.1) mmol/L BUN (9-20) mg/dL Creatinine (0.66-1.25) mg/dL Glucose (74-99) mg/dL POC Glucose (mg/dL) 151 H 131 H 153 H (75-99) mg/dL Calcium (8.4-10.2) mg/dL AST (17-59) U/L ALT (21-72) U/L Total Protein (6.3-8.2) g/dL Albumin (3.5-5.0) g/dL 07/24/18 07/24/18 07/24/18 Range/Units 04:40 04:40 04:40 WBC 11.1 H (3.8-10.6) k/uL RBC 3.80 L (4.30-5.90) m/uL Hgb 10.4 L (13.0-17.5) gm/dL Hct 33.1 L (39.0-53.0) % RDW 15.9 H (11.5-15.5) % Plt Count 133 L (150-450) k/uL Neutrophils # 9.9 H (1.3-7.7) k/uL Lymphocytes # 0.7 L (1.0-4.8) k/uL PT 12.8 H (9.0-12.0) sec INR 1.4 H (<1.2) Potassium 3.3 L (3.5-5.1) mmol/L BUN 42 H (9-20) mg/dL Creatinine 1.88 H (0.66-1.25) mg/dL Glucose 112 H (74-99) mg/dL POC Glucose (mg/dL) (75-99) mg/dL Calcium 7.3 L (8.4-10.2) mg/dL AST 88 H (17-59) U/L ALT 137 H (21-72) U/L Total Protein 5.1 L (6.3-8.2) g/dL Albumin 2.2 L (3.5-5.0) g/dL 07/24/18 Range/Units 06:16 WBC (3.8-10.6) k/uL RBC (4.30-5.90) m/uL Hgb (13.0-17.5) gm/dL Hct (39.0-53.0) % RDW (11.5-15.5) % Plt Count (150-450) k/uL Neutrophils # (1.3-7.7) k/uL Lymphocytes # (1.0-4.8) k/uL PT (9.0-12.0) sec INR (<1.2) Potassium (3.5-5.1) mmol/L BUN (9-20) mg/dL Creatinine (0.66-1.25) mg/dL Glucose (74-99) mg/dL POC Glucose (mg/dL) 118 H (75-99) mg/dL Calcium (8.4-10.2) mg/dL AST (17-59) U/L ALT (21-72) U/L Total Protein (6.3-8.2) g/dL Albumin (3.5-5.0) g/dL Microbiology - Last 24 Hours (Table) 07/21/18 13:33 Blood Culture - Preliminary Blood No Growth after 48 hours 07/22/18 11:50 Urine Culture - Final Urine,Catheterized Assessment and Plan Plan: 1 ischemic colitis with secondary lower abdominal pain, acute, associated with lactic acidosis. Clinically the patient improved significantly and his abdominal pain is subsided, hemodynamically stable, the patient was covered with IV Zosyn and abdominal pain is improved and the lactic acid levels have normalized. 2 abnormal LFTs , improving and the HIDA scan was also negative for acute cholecystitis 3 lactic acidosis, and the level is normalized for now 4 acute leukocytosis, improving 5 coronary artery disease 6 congestion heart failure with ejection fraction of 45-50% 7 chronic atrial fibrillation maintained on long-term anticoagulation, currently warfarin is on hold due to episodes of GI bleeding secondary to ischemic colitis. 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 Hearing 11 severe arthritis with bilateral shoulder and knee replacement 12 BPH 13. Debility and impaired performance and functional status second above- mentioned comorbidities 14 pseudotumor within the right lung , patient has fluid within the right fissure that has been visualized on previous CAT scans and chest x-rays. 15 hypertension 6. Acute kidney injury in the creatinine is up to 1.8, stable, improving . Plan Continue same treatment. IV fluids. IV antibiotics and Zosyn. May discontinue the NG tube. General surgeries on the case. Malar some clear liquid diet with the next 24 hours. Monitor electrolytes. Monitor renal function. Hold anticoagulation for now. We'll continue to follow. We'll need to give the patient denies to follow 24 hours.
[2018-07-24 12:11] LABS: Glucose,Whole Blood 124 mg/dL (75-99)
--- NOTE | 2018-07-24 12:12 | P.PN ---
Subjective Progress Note Date: 07/24/18 CHIEF COMPLAINT: Abdominal pain HISTORY OF PRESENT ILLNESS: The patient is an 82-year-old gentleman with history of ischemic colitis. He has severe cardiovascular disease. He is also hard of hearing. He reports abdominal pain has improved. CT of the abdomen pelvis nursing also reviewed confirming ischemic colitis. NG tube has been discontinued by ICU yesterday. PHYSICAL EXAM: GENERAL: Well-developed in no distress. HEENT: No scleral icterus. Extraocular movements grossly intact. Hard of hearing. NECK: Supple without lymphadenopathy. CHEST: Nonlabored respirations with equal bilateral excursions. CARDIOVASCULAR: Irregular rate and rhythm. Distal 2+ pulses. ABDOMEN: Soft. No peritonitis. Decreased tenderness throughout abdomen MUSCULOSKELETAL: No clubbing, cyanosis, or edema. BKA of the left leg. Arthritic changes of the bilateral MCP of the hands NEURO: No focal or lateralizing signs. PSYCH: Appropriate affect. Alert and oriented to person, place and time. SKIN: Good skin turgor. Well perfused. ASSESSMENT: 1. Ischemic colitis PLAN: 1. For treatment for ischemic colitis include IV antibiotics and bowel rest. 2. Do not advance diet at least for 48 hours from ice chips and popsicles. 3. IV fluid hydration advised Objective - Vital Signs Vital signs: Vital Signs Temp 98.1 F 07/24/18 08:00 Pulse 82 07/24/18 09:30 Resp 18 07/24/18 09:30 BP 141/92 07/24/18 09:30 Pulse Ox 94 L 07/24/18 09:30 Intake & Output 07/23/18 07/24/18 07/24/18 18:59 06:59 18:59 Intake Total 1387.5 1325.25 225.0 Output Total 698 580 75 Balance 689.5 745.25 150.0 Weight 77.5 kg Intake: IV 1287.5 1312.5 200 Dextrose 5% in Water 1, 200 000 ml @ 100 mls/hr IV . [id number] [facility] with Sodium Bicarb (1 Meq/ml) 150 ml Rx#:[id number] Dextrose 5% water 1000ml 1000 1300 Dextrose 5%-0.9% NaCl 1, 200 000 ml @ 75 mls/hr IV . [id number] [facility] Rx#:[id number] Piperacillin-Tazobactam 3 87.5 12.5 .375 gm In Dextrose/Water 1 50ml.bag @ 12.5 mls/hr IVPB Q8HR [facility] Rx#: [id number] Intake, IV Titration 100 12.75 25.0 Amount Diltiazem 50 mg In Sodium 100 12.75 Chloride 0.9% 40 ml @ Per Protocol IV .Q0M [facility] Rx#:[id number] Piperacillin-Tazobactam 3 25.0 .375 gm In Dextrose/Water 1 50ml.bag @ 12.5 mls/hr IVPB Q8HR [facility] Rx#: [id number] Output: Gastric Drainage 75 Urine 620 580 75 Stool 3 Other: Voiding Method Indwelling Catheter Indwelling Catheter Indwelling Catheter - Labs CBC & Chem 7: 07/24/18 04:40 07/24/18 04:40 Labs: Abnormal Lab Results - Last 24 Hours (Table) 07/23/18 07/23/18 07/24/18 Range/Units 13:35 18:17 00:20 WBC (3.8-10.6) k/uL RBC (4.30-5.90) m/uL Hgb (13.0-17.5) gm/dL Hct (39.0-53.0) % RDW (11.5-15.5) % Plt Count (150-450) k/uL Neutrophils # (1.3-7.7) k/uL Lymphocytes # (1.0-4.8) k/uL PT (9.0-12.0) sec INR (<1.2) Potassium (3.5-5.1) mmol/L BUN (9-20) mg/dL Creatinine (0.66-1.25) mg/dL Glucose (74-99) mg/dL POC Glucose (mg/dL) 151 H 131 H 153 H (75-99) mg/dL Calcium (8.4-10.2) mg/dL AST (17-59) U/L ALT (21-72) U/L Total Protein (6.3-8.2) g/dL Albumin (3.5-5.0) g/dL 07/24/18 07/24/18 07/24/18 Range/Units 04:40 04:40 04:40 WBC 11.1 H (3.8-10.6) k/uL RBC 3.80 L (4.30-5.90) m/uL Hgb 10.4 L (13.0-17.5) gm/dL Hct 33.1 L (39.0-53.0) % RDW 15.9 H (11.5-15.5) % Plt Count 133 L (150-450) k/uL Neutrophils # 9.9 H (1.3-7.7) k/uL Lymphocytes # 0.7 L (1.0-4.8) k/uL PT 12.8 H (9.0-12.0) sec INR 1.4 H (<1.2) Potassium 3.3 L (3.5-5.1) mmol/L BUN 42 H (9-20) mg/dL Creatinine 1.88 H (0.66-1.25) mg/dL Glucose 112 H (74-99) mg/dL POC Glucose (mg/dL) (75-99) mg/dL Calcium 7.3 L (8.4-10.2) mg/dL AST 88 H (17-59) U/L ALT 137 H (21-72) U/L Total Protein 5.1 L (6.3-8.2) g/dL Albumin 2.2 L (3.5-5.0) g/dL 07/24/18 Range/Units 06:16 WBC (3.8-10.6) k/uL RBC (4.30-5.90) m/uL Hgb (13.0-17.5) gm/dL Hct (39.0-53.0) % RDW (11.5-15.5) % Plt Count (150-450) k/uL Neutrophils # (1.3-7.7) k/uL Lymphocytes # (1.0-4.8) k/uL PT (9.0-12.0) sec INR (<1.2) Potassium (3.5-5.1) mmol/L BUN (9-20) mg/dL Creatinine (0.66-1.25) mg/dL Glucose (74-99) mg/dL POC Glucose (mg/dL) 118 H (75-99) mg/dL Calcium (8.4-10.2) mg/dL AST (17-59) U/L ALT (21-72) U/L Total Protein (6.3-8.2) g/dL Albumin (3.5-5.0) g/dL Microbiology - Last 24 Hours (Table) 07/21/18 13:33 Blood Culture - Preliminary Blood No Growth after 48 hours 07/22/18 11:50 Urine Culture - Final Urine,Catheterized Assessment and Plan (1) Abnormal CT of the abdomen Current Visit: Yes Status: Acute Code(s): R93.5 - ABN FINDINGS ON DX IMAGING OF ABD REGIONS, INC RETROPERITON SNOMED Code(s): 36912874311838657 (2) Enterocolitis Current Visit: Yes Status: Acute Code(s): K52.9 - NONINFECTIVE GASTROENTERITIS AND COLITIS, UNSPECIFIED SNOMED Code(s): 63208193 (3) Abdominal pain Current Visit: Yes Status: Acute Code(s): R10.9 - UNSPECIFIED ABDOMINAL PAIN SNOMED Code(s): 80833989 (4) Coagulopathy Current Visit: Yes Status: Acute Code(s): D68.9 - COAGULATION DEFECT, UNSPECIFIED SNOMED Code(s): 37634427 (5) Elevated lactic acid level Current Visit: Yes Status: Acute Code(s): R79.89 - OTHER SPECIFIED ABNORMAL FINDINGS OF BLOOD CHEMISTRY SNOMED Code(s): 8882641 (6) GI bleed Current Visit: Yes Status: Acute Code(s): K92.2 - GASTROINTESTINAL HEMORRHAGE, UNSPECIFIED SNOMED Code(s): 46222932 (7) Lactic acidosis Current Visit: Yes Status: Acute Code(s): E87.2 - ACIDOSIS SNOMED Code(s) : 90959111 (8) Leukocytosis Current Visit: Yes Status: Acute Code(s): D72.829 - ELEVATED WHITE BLOOD CELL COUNT, UNSPECIFIED SNOMED Code(s): 036466820 (9) Atrial fibrillation with RVR Current Visit: No Status: Acute Code(s): I48.91 - UNSPECIFIED ATRIAL FIBRILLATION SNOMED Code(s): 042688406035940 (10) S/P BKA (below knee amputation) unilateral Current Visit: No Status: Acute Code(s): Z89.519 - ACQUIRED ABSENCE OF UNSPECIFIED LEG BELOW KNEE SNOMED Code(s): 512307097
--- NOTE | 2018-07-24 15:44 | P.PN ---
Subjective Progress Note Date: 07/24/18 This is an 82-year-old male patient of Dr. kelly. Patient presented to the emergency room with complaints of abdominal pain and diarrhea patient also states he's been having episodes of emesis. Patient has a known past medical history history of atrial fibrillation which she takes Coumadin. Chest pain, heart failure GERD, hyperlipidemia, hypertension and prostate disorder. Patient is extremely hard of hearing and therefore a poor historian. CT of abdomen completed in emergency room showing a small bilateral pleural effusion, borderline cardiomegaly, mild diffuse tenderness Scaccia type II. Correlate for fluid overload state. Partially visualized rounded area in the right mid to lower lung on the first slice this could represent a mass or pseudotumor due to fluid within the minor seizure. Consider initial assessment chest x-ray. Prominent fluid with a mildly thickened mid to lower abdominal small bowel loops additional liquid stool throughout the colon. Correlate for enteritis or enterocolitis. Prostatomegaly. Chest x-ray completed showing masslike areas of consolidation the right greater than left midlung. This was present to some extent on the 11/07/2017 exam making loculated pleural fluid more likely than underlying neoplasm. CT completed showing atrial fibrillation with rapid ventricular response with premature ventricular or aberrantly conducted complexes. Patient was started on Cardizem drip. Initial WBC 15.2. Lactic acid 6.4. Lactic acid increasing to 10.4. Patient received 4 L of IV fluid per critical care team. Repeat lactic acid 5.7. AST 318 ALT 263 and alkaline phosphatase 152. INR is 3.1 patient admitted to the intensive care unit and Dr. Calzada per critical care consulted. Dr. Whaley per GI service is consulted. Dr. Shahid per surgical service is consulted. Per nursing staff patient did have episodes of approximately 150 mL of bloody stool this a.m. Discussed case at bedside with Dr. Calzada per critical care. Concerns for ischemic colitis. Orders placed to reverse Coumadin with vitamin K. Bicarb gtt initiated per critical care. Abdominal x-ray ordered per critical care. Surgical services paged per nursing staff. On 07/23/2018 patient was seen and examined in ICU he is alert and oriented 3 in no apparent distress, he has NG tube in, he is complaining of abdominal pain , he had episodes of bloody diarrhea are clear, he denies any vomiting, he denies any chest pain or shortness of breath no cough and no urinary symptoms. On 07/24/2018 patient was seen and examined in ICU he is more drowsy today, but awake easily and respond to questions abdominal pain has improved, he had greenish color bowel movement without any bleeding, he denies any vomiting there is no fever or chills no headache no chest pain no shortness of breath no cough and no urinary symptoms. Objective - Vital Signs Vital signs: Vital Signs Temp 98.1 F 07/24/18 12:00 Pulse 84 07/24/18 14:00 Resp 18 07/24/18 14:00 BP 134/70 07/24/18 14:00 Pulse Ox 99 07/24/18 14:00 Intake & Output 07/23/18 07/24/18 07/24/18 18:59 06:59 18:59 Intake Total 1387.5 1325.25 575.0 Output Total 698 580 355 Balance 689.5 745.25 220.0 Weight 77.5 kg Intake: IV 1287.5 1312.5 525 Dextrose 5% in Water 1, 200 000 ml @ 100 mls/hr IV . [id number] [facility] with Sodium Bicarb (1 Meq/ml) 150 ml Rx#:[id number] Dextrose 5% water 1000ml 1000 1300 Dextrose 5%-0.9% NaCl 1, 525 000 ml @ 75 mls/hr IV . [id number] [facility] Rx#:[id number] Piperacillin-Tazobactam 3 87.5 12.5 .375 gm In Dextrose/Water 1 50ml.bag @ 12.5 mls/hr IVPB Q8HR [facility] Rx#: [id number] Intake, IV Titration 100 12.75 50.0 Amount Diltiazem 50 mg In Sodium 100 12.75 Chloride 0.9% 40 ml @ Per Protocol IV .Q0M [facility] Rx#:[id number] Piperacillin-Tazobactam 3 50.0 .375 gm In Dextrose/Water 1 50ml.bag @ 12.5 mls/hr IVPB Q8HR [facility] Rx#: [id number] Output: Gastric Drainage 75 Urine 620 580 355 Stool 3 Other: Voiding Method Indwelling Catheter Indwelling Catheter Indwelling Catheter - Exam Head normocephalic and atraumatic Neck supple no JVD no goiter Lungs clear to auscultation bilaterally no wheezing or crackles Heart regular rate and rhythm S1-S2, no rub or gallop Abdomen slightly distended. Diffuse tenderness throughout abdomen. Hypo-bowel sounds Extremities no edema Neuro alert and orientated to 3 - Labs CBC & Chem 7: 07/24/18 04:40 07/24/18 04:40 Labs: Abnormal Lab Results - Last 24 Hours (Table) 07/23/18 07/24/18 07/24/18 Range/Units 18:17 00:20 04:40 WBC 11.1 H (3.8-10.6) k/uL RBC 3.80 L (4.30-5.90) m/uL Hgb 10.4 L (13.0-17.5) gm/dL Hct 33.1 L (39.0-53.0) % RDW 15.9 H (11.5-15.5) % Plt Count 133 L (150-450) k/uL Neutrophils # 9.9 H (1.3-7.7) k/uL Lymphocytes # 0.7 L (1.0-4.8) k/uL PT (9.0-12.0) sec INR (<1.2) Potassium (3.5-5.1) mmol/L BUN (9-20) mg/dL Creatinine (0.66-1.25) mg/dL Glucose (74-99) mg/dL POC Glucose (mg/dL) 131 H 153 H (75-99) mg/dL Calcium (8.4-10.2) mg/dL AST (17-59) U/L ALT (21-72) U/L Total Protein (6.3-8.2) g/dL Albumin (3.5-5.0) g/dL 07/24/18 07/24/18 07/24/18 Range/Units 04:40 04:40 06:16 WBC (3.8-10.6) k/uL RBC (4.30-5.90) m/uL Hgb (13.0-17.5) gm/dL Hct (39.0-53.0) % RDW (11.5-15.5) % Plt Count (150-450) k/uL Neutrophils # (1.3-7.7) k/uL Lymphocytes # (1.0-4.8) k/uL PT 12.8 H (9.0-12.0) sec INR 1.4 H (<1.2) Potassium 3.3 L (3.5-5.1) mmol/L BUN 42 H (9-20) mg/dL Creatinine 1.88 H (0.66-1.25) mg/dL Glucose 112 H (74-99) mg/dL POC Glucose (mg/dL) 118 H (75-99) mg/dL Calcium 7.3 L (8.4-10.2) mg/dL AST 88 H (17-59) U/L ALT 137 H (21-72) U/L Total Protein 5.1 L (6.3-8.2) g/dL Albumin 2.2 L (3.5-5.0) g/dL 07/24/18 Range/Units 12:10 WBC (3.8-10.6) k/uL RBC (4.30-5.90) m/uL Hgb (13.0-17.5) gm/dL Hct (39.0-53.0) % RDW (11.5-15.5) % Plt Count (150-450) k/uL Neutrophils # (1.3-7.7) k/uL Lymphocytes # (1.0-4.8) k/uL PT (9.0-12.0) sec INR (<1.2) Potassium (3.5-5.1) mmol/L BUN (9-20) mg/dL Creatinine (0.66-1.25) mg/dL Glucose (74-99) mg/dL POC Glucose (mg/dL) 124 H (75-99) mg/dL Calcium (8.4-10.2) mg/dL AST (17-59) U/L ALT (21-72) U/L Total Protein (6.3-8.2) g/dL Albumin (3.5-5.0) g/dL Microbiology - Last 24 Hours (Table) 07/21/18 13:33 Blood Culture - Preliminary Blood No Growth after 48 hours 07/22/18 11:50 Urine Culture - Final Urine,Catheterized Assessment and Plan Plan: 1. lower abdominal pain, acute, associated with lactic acidosis. CT abdomen completed showing prominent fluid within mildly thickened mid to lower abdominal small bowel loops been additional liquid stool throughout the colon. Correlate for enteritis and enterocolitis. Lactic acid elevated as high as 10.4. Patient did receive 4 L of IV fluid per critical care. Repeat lactic 5.6. Per nursing staff patient did have episode of approximately 150 mL of bloody stool this a.m.. GI and surgical services consulted. Abdominal x-ray completed per critical care showing persistent overall nonobstructive bowel gas pattern. Bicarb drip has been ordered per critical care vitamin K order to reverse Coumadin. Patient currently on Zosyn for antibiotic. WBC increasing to 19.6. Critical care team following closely. 2. abnormal LFTs with dilated gallbladder. Abdominal ultrasound completed showing large gallbladder mild wall thickening and pericholecystic fluid consistent with cholecystitis. No gallstones identified no dilated ducts. Dr. Shahid for surgical service is consulted. AST increasing to 318 ALT increasing to 263 and alkaline phosphatase 152 3. diarrhea with lactic acidosis. C. diff negative 4. leukocytosis and lactic acidosis. Initial lactic acid 7.2. Lactic acid increasing to as high as 10.4. Patient received 4 L of IV fluid per critical care. This a.m. lactic acid 5.7. Sepsis protocol initiated. Currently on Zosyn for antibiotic 5. history of coronary artery disease 6. congestion heart failure with ejection fraction of 45-50% 7. chronic atrial fibrillation maintained on long-term medical condition with warfarin with therapeutic PT/INR. Coumadin on hold due to GI bleed. INR 3.1. Vit K has been ordered per critical care 8. 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 History of dementia 10. History of Hearing 11. 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 History of BPH 13. Debility and impaired performance and functional status second above- mentioned comorbidities 14. pseudotumor within the right lung , patient has fluid within the right fissure that has been visualized on previous CAT scans and chest x-rays. 15. History of essential hypertension. 16. Per nursing staff concerns for aspiration. NG tube was placed to LIS. X- ray obtained showing overall stable findings, cardiomegaly with central vascular congestion and bilateral perihilar edema and/or infiltrate is small to tiny right greater than left pleural effusions are redemonstrated. Dr. Calzada following for pulmonary and critical care. Patient currently on Zosyn 17. Atrial fibrillation with rapid ventricular response. Patient does have history of A. fib and was on Coumadin.. Patient started on Cardizem drip. Due to possible surgical intervention. Coumadin has been reversed with vitamin K per critical care team. Heart rate currently in the 70s and 80s. 18. Low urine output. Patient was given 4 L of fluid throughout night. Critical care team following 19. Acute kidney injury. Creatinine increasing to 1.73 and bun 35. patient did received fluid resuscitation per sepsis protocol per critical care. CT to monitor closely DVT prophylaxis SCDs and GI prophylaxis Protonix
[2018-07-24 17:12] LABS: Glucose,Whole Blood 154 mg/dL (75-99)
[2018-07-24] MEDS ORDERED: POTASSIUM CHLORIDE 20 MEQ in WATER FOR INJECTION 1 100ML.BAG IVPB STA (19:03)
[2018-07-24] MEDS ORDERED: POTASSIUM CHLORIDE 20 MEQ in WATER FOR INJECTION 1 100ML.BAG IVPB ONE (20:00)
[2018-07-24] MEDS: SERTRALINE 50 MG TAB PO SCH (20:50)
--- NOTE | 2018-07-24 23:20 | PN ---
PROGRESS NOTE DATE OF SERVICE: 07/24/2018. REASON FOR FOLLOWUP: 1. Possible ischemic colitis. 2. Right lateral ankle wound. INTERVAL HISTORY: The patient is currently afebrile. He seemed to be breathing comfortably. Pain is currently controlled. No nausea, no vomiting or any worsening diarrhea. Denies pain to the underlying wound area. PHYSICAL EXAMINATION: Blood pressure 154/85 with a pulse of 80, temperature 98, he is 97% on room air. GENERAL DESCRIPTION: An elderly male lying in bed in no distress. RESPIRATORY SYSTEM: Unlabored breathing, clear to auscultation anteriorly. HEART: S1, S2. Regular rate and rhythm. ABDOMEN: Soft, nontender. No guarding or rigidity. EXTREMITIES: Right-sided ankle wound is currently dressed, no obvious drainage on the dressing. LABS: Hemoglobin is 10.4, white count 11.1 with a BUN of 42, creatinine 1.8. DIAGNOSTIC IMPRESSION AND PLAN: 1. Patient admitted to the hospital with sepsis, source possible ischemic colitis. The patient is currently covered with Zosyn and that will be continued for now, watching clinical course closely. 2. Patient with right lateral ankle wound. Continue local wound care with Aquacel Silver dressing. Keep the area free from pressure. MMODL / IJN: [id number] /
[2018-07-25] MEDS: PIPERACILLIN-TAZOBACTAM 3.375 GM in DEXTROSE/WATER 1 50ML.BAG IVPB SCH ×4 (01:22→23:32)
[2018-07-25 01:27] LABS: Glucose,Whole Blood 103 mg/dL (75-99)
[2018-07-25] MEDS: INSULIN ASPART 100 UNIT/ML 1 ML 10 ML VIAL SQ SCH ×4 (01:27→18:40)
[2018-07-25 04:46] LABS: Basophils % (A) 0 %; Eosinophils # (A) 0.1 k/uL (0-0.7); Eosinophils % (A) 1 %; HCT 36.5 % (39.0-53.0); HGB 11.2 gm/dL (13.0-17.5); Hypochromasia Slight; Lymphocytes # (A) 0.9 k/uL (1.0-4.8); Lymphocytes % (A) 8 %; MCH 27.3 pg (25.0-35.0); MCHC 30.6 g/dL (31.0-37.0); MCV 89.2 fL (80.0-100.0); Mean Platelet Volume 8.5; Monocytes # (A) 0.4 k/uL (0-1.0); Monocytes % (A) 4 %; Neutrophils # (A) 8.9 k/uL (1.3-7.7); Neutrophils % (A) 86 %; Platelet Count 136 k/uL (150-450); RBC 4.09 m/uL (4.30-5.90); RDW 15.9 % (11.5-15.5); WBC 10.4 k/uL (3.8-10.6)
[2018-07-25 05:01] LABS: Albumin 2.4 g/dL (3.5-5.0); Calcium 7.7 mg/dL (8.4-10.2); Magnesium 2.1 mg/dL (1.6-2.3); Phosphorus 3.2 mg/dL (2.5-4.5); Potassium 3.8 mmol/L (3.5-5.1); Total Bilirubin 0.8 mg/dL (0.2-1.3); Total Protein 5.4 g/dL (6.3-8.2)
[2018-07-25 06:27] LABS: Glucose,Whole Blood 114 mg/dL (75-99)
[2018-07-25] MEDS: LEVOTHYROXINE 25 MCG TAB PO SCH (06:39)
[2018-07-25] MEDS ORDERED: Potassium Replacement Protocol 1 EACH MISC MISCELLANE PRN (07:05)
[2018-07-25] MEDS: POTASSIUM CHLORIDE 10 MEQ in WATER FOR INJECTION 1 100ML.BAG IVPB SCH ×2 (08:13→09:21)
[2018-07-25] MEDS: PANTOPRAZOLE 40 MG/10 ML VIAL IVP SCH (08:13)
[2018-07-25] MEDS: METOPROLOL TARTRATE 50 MG TAB PO SCH ×2 (08:13→20:11)
--- NOTE | 2018-07-25 10:17 | P.PN ---
Subjective Progress Note Date: 07/25/18 This is an 82-year-old male patient of Dr. kelly. Patient presented to the emergency room with complaints of abdominal pain and diarrhea patient also states he's been having episodes of emesis. Patient has a known past medical history history of atrial fibrillation which she takes Coumadin. Chest pain, heart failure GERD, hyperlipidemia, hypertension and prostate disorder. Patient is extremely hard of hearing and therefore a poor historian. CT of abdomen completed in emergency room showing a small bilateral pleural effusion, borderline cardiomegaly, mild diffuse tenderness Scaccia type II. Correlate for fluid overload state. Partially visualized rounded area in the right mid to lower lung on the first slice this could represent a mass or pseudotumor due to fluid within the minor seizure. Consider initial assessment chest x-ray. Prominent fluid with a mildly thickened mid to lower abdominal small bowel loops additional liquid stool throughout the colon. Correlate for enteritis or enterocolitis. Prostatomegaly. Chest x-ray completed showing masslike areas of consolidation the right greater than left midlung. This was present to some extent on the 11/07/2017 exam making loculated pleural fluid more likely than underlying neoplasm. CT completed showing atrial fibrillation with rapid ventricular response with premature ventricular or aberrantly conducted complexes. Patient was started on Cardizem drip. Initial WBC 15.2. Lactic acid 6.4. Lactic acid increasing to 10.4. Patient received 4 L of IV fluid per critical care team. Repeat lactic acid 5.7. AST 318 ALT 263 and alkaline phosphatase 152. INR is 3.1 patient admitted to the intensive care unit and Dr. Calzada per critical care consulted. Dr. Whaley per GI service is consulted. Dr. Shahid per surgical service is consulted. Per nursing staff patient did have episodes of approximately 150 mL of bloody stool this a.m. Discussed case at bedside with Dr. Calzada per critical care. Concerns for ischemic colitis. Orders placed to reverse Coumadin with vitamin K. Bicarb gtt initiated per critical care. Abdominal x-ray ordered per critical care. Surgical services paged per nursing staff. On 07/23/2018 patient was seen and examined in ICU he is alert and oriented 3 in no apparent distress, he has NG tube in, he is complaining of abdominal pain , he had episodes of bloody diarrhea are clear, he denies any vomiting, he denies any chest pain or shortness of breath no cough and no urinary symptoms. On 07/24/2018 patient was seen and examined in ICU he is more drowsy today, but awake easily and respond to questions abdominal pain has improved, he had greenish color bowel movement without any bleeding, he denies any vomiting there is no fever or chills no headache no chest pain no shortness of breath no cough and no urinary symptoms. 07/25/2018 patient remains in the intensive care unit. Patient is sleepy but arousable. Per nursing staff patient has not had any blood in stool. Patient denies any vomiting or nausea. Denies any urinary symptoms Objective - Vital Signs Vital signs: Vital Signs Temp 97.6 F 07/25/18 08:00 Pulse 79 07/25/18 10:00 Resp 18 07/25/18 10:00 BP 143/76 07/25/18 10:00 Pulse Ox 100 07/25/18 10:00 Intake & Output 07/24/18 07/25/18 07/25/18 18:59 06:59 18:59 Intake Total 900.0 925.0 150 Output Total 505 1125 280 Balance 395.0 -200.0 -130 Weight 82.4 kg Intake: IV 825 900 150 Dextrose 5%-0.9% NaCl 1, 825 900 150 000 ml @ 75 mls/hr IV . [id number] [facility] Rx#:[id number] Intake, IV Titration 75.0 25.0 Amount Piperacillin-Tazobactam 3 75.0 25.0 .375 gm In Dextrose/Water 1 50ml.bag @ 12.5 mls/hr IVPB Q8HR [facility] Rx#: [id number] Output: Urine 505 1123 280 Stool 2 Other: Voiding Method Indwelling Catheter Indwelling Catheter - Exam Head normocephalic Neck supple Lungs clear to auscultation bilaterally no wheezing or crackles Heart regular rate and rhythm S1-S2, no rub or gallop Abdomen is soft nontender nondistended positive bowel sounds no hepatosplenomegaly Extremities no edema Neuro alert and orientated to 3 - Labs CBC & Chem 7: 07/25/18 04:25 07/25/18 04:25 Labs: Abnormal Lab Results - Last 24 Hours (Table) 07/24/18 07/24/18 07/25/18 Range/Units 12:10 17:07 01:25 RBC (4.30-5.90) m/uL Hgb (13.0-17.5) gm/dL Hct (39.0-53.0) % MCHC (31.0-37.0) g/dL RDW (11.5-15.5) % Plt Count (150-450) k/uL Neutrophils # (1.3-7.7) k/uL Lymphocytes # (1.0-4.8) k/uL BUN (9-20) mg/dL Creatinine (0.66-1.25) mg/dL Glucose (74-99) mg/dL POC Glucose (mg/dL) 124 H 154 H 103 H (75-99) mg/dL Calcium (8.4-10.2) mg/dL AST (17-59) U/L ALT (21-72) U/L Total Protein (6.3-8.2) g/dL Albumin (3.5-5.0) g/dL 07/25/18 07/25/18 07/25/18 Range/Units 04:25 04:25 06:24 RBC 4.09 L (4.30-5.90) m/uL Hgb 11.2 L (13.0-17.5) gm/dL Hct 36.5 L (39.0-53.0) % MCHC 30.6 L (31.0-37.0) g/dL RDW 15.9 H (11.5-15.5) % Plt Count 136 L (150-450) k/uL Neutrophils # 8.9 H (1.3-7.7) k/uL Lymphocytes # 0.9 L (1.0-4.8) k/uL BUN 38 H (9-20) mg/dL Creatinine 1.64 H (0.66-1.25) mg/dL Glucose 106 H (74-99) mg/dL POC Glucose (mg/dL) 114 H (75-99) mg/dL Calcium 7.7 L (8.4-10.2) mg/dL AST 65 H (17-59) U/L ALT 118 H (21-72) U/L Total Protein 5.4 L (6.3-8.2) g/dL Albumin 2.4 L (3.5-5.0) g/dL Microbiology - Last 24 Hours (Table) 07/21/18 13:33 Blood Culture - Preliminary Blood No Growth after 72 hours Assessment and Plan Assessment: 1. lower abdominal pain, acute, associated with lactic acidosis. CT abdomen completed showing prominent fluid within mildly thickened mid to lower abdominal small bowel loops been additional liquid stool throughout the colon. Correlate for enteritis and enterocolitis. Lactic acid elevated as high as 10.4. Patient did receive 4 L of IV fluid per critical care. Repeat lactic 5.6. Per nursing staff patient did have episode of approximately 150 mL of bloody stool this a.m.. GI and surgical services consulted. Abdominal x-ray completed per critical care showing persistent overall nonobstructive bowel gas pattern. Bicarb drip has been ordered per critical care vitamin K order to reverse Coumadin. Patient currently on Zosyn for antibiotic. WBC increasing to 19.6. Critical care team following closely. White Blood cell improving to 11.1. Per surgical services at this time continue IV antibiotics and bowel rest. Do not advanced diet for 48 hours from ice chips and popsicles 2. abnormal LFTs with dilated gallbladder. Abdominal ultrasound completed showing large gallbladder mild wall thickening and pericholecystic fluid consistent with cholecystitis. No gallstones identified no dilated ducts. Dr. Shahid for surgical service is consulted. Liver enzymes improving AST 88 ALT 137 and alkaline phosphatase 103 3. diarrhea with lactic acidosis. C. diff negative 4. leukocytosis and lactic acidosis. Initial lactic acid 7.2. Lactic acid increasing to as high as 10.4. Patient received 4 L of IV fluid per critical care. This a.m. lactic acid 5.7. Sepsis protocol initiated. Currently on Zosyn for antibiotic. Repeat lactic acid 1.6 5. history of coronary artery disease 6. congestion heart failure with ejection fraction of 45-50% 7. chronic atrial fibrillation maintained on long-term medical condition with warfarin with therapeutic PT/INR. Coumadin on hold due to GI bleed. INR 3.1. Vit K has been ordered per critical care. Cardiology services consulted. 8. 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 History of dementia 10. History of Hearing 11. 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 History of BPH 13. Debility and impaired performance and functional status second above- mentioned comorbidities 14. pseudotumor within the right lung , patient has fluid within the right fissure that has been visualized on previous CAT scans and chest x-rays. 15. History of essential hypertension. 16. Per nursing staff concerns for aspiration. NG tube was placed to LIS. X- ray obtained showing overall stable findings, cardiomegaly with central vascular congestion and bilateral perihilar edema and/or infiltrate is small to tiny right greater than left pleural effusions are redemonstrated. Dr. Calzada following for pulmonary and critical care. Patient currently on Zosyn 17. Atrial fibrillation with rapid ventricular response. Patient does have history of A. fib and was on Coumadin.. Patient started on Cardizem drip. Due to possible surgical intervention. Coumadin has been reversed with vitamin K per critical care team. Heart rate currently in the 70s and 80s. 18. Low urine output. Patient was given 4 L of fluid throughout night. Critical care team following 19. Acute kidney injury. Creatinine increasing to 1.88 and bun 42. patient did received fluid resuscitation per sepsis protocol per critical care. Continue to monitor closely DVT prophylaxis SCDs and GI prophylaxis Protonix I performed an examination of the patient and discussed their management with the Nurse Practitioner. I have reviewed the Nurse Practitioner's notes and agree with the documented findings and plan of care
--- NOTE | 2018-07-25 10:20 | P.PN ---
Subjective Progress Note Date: 07/25/18 CHIEF COMPLAINT: Abdominal pain HISTORY OF PRESENT ILLNESS: The patient is an 82-year-old gentleman with history of ischemic colitis. "I'm 100% better.". He reports hunger. No further reports of abdominal pain. PHYSICAL EXAM: GENERAL: Well-developed in no distress. HEENT: No scleral icterus. Extraocular movements grossly intact. Hard of hearing. NECK: Supple without lymphadenopathy. CHEST: Nonlabored respirations with equal bilateral excursions. CARDIOVASCULAR: Irregular rate and rhythm. Distal 2+ pulses. ABDOMEN: Soft, nontender, nondistended MUSCULOSKELETAL: No clubbing, cyanosis, or edema. BKA of the left leg. Arthritic changes of the bilateral MCP of the hands NEURO: No focal or lateralizing signs. PSYCH: Appropriate affect. Alert and oriented to person, place and time. SKIN: Good skin turgor. Well perfused. ASSESSMENT: 1. Ischemic colitis PLAN: 1. Agreeable clear liquid diet. Objective - Vital Signs Vital signs: Vital Signs Temp 97.6 F 07/25/18 08:00 Pulse 79 07/25/18 10:00 Resp 18 07/25/18 10:00 BP 143/76 07/25/18 10:00 Pulse Ox 100 07/25/18 10:00 Intake & Output 07/24/18 07/25/18 07/25/18 18:59 06:59 18:59 Intake Total 900.0 925.0 350 Output Total 505 1125 365 Balance 395.0 -200.0 -15 Weight 82.4 kg Intake: IV 825 900 350 Dextrose 5%-0.9% NaCl 1, 825 900 300 000 ml @ 75 mls/hr IV . [id number] [facility] Rx#:[id number] Piperacillin-Tazobactam 3 50 .375 gm In Dextrose/Water 1 50ml.bag @ 12.5 mls/hr IVPB Q8HR [facility] Rx#: [id number] Intake, IV Titration 75.0 25.0 Amount Piperacillin-Tazobactam 3 75.0 25.0 .375 gm In Dextrose/Water 1 50ml.bag @ 12.5 mls/hr IVPB Q8HR [facility] Rx#: [id number] Output: Urine 505 1123 365 Stool 2 Other: Voiding Method Indwelling Catheter Indwelling Catheter - Labs CBC & Chem 7: 07/25/18 04:25 07/25/18 04:25 Labs: Abnormal Lab Results - Last 24 Hours (Table) 07/24/18 07/24/18 07/25/18 Range/Units 12:10 17:07 01:25 RBC (4.30-5.90) m/uL Hgb (13.0-17.5) gm/dL Hct (39.0-53.0) % MCHC (31.0-37.0) g/dL RDW (11.5-15.5) % Plt Count (150-450) k/uL Neutrophils # (1.3-7.7) k/uL Lymphocytes # (1.0-4.8) k/uL BUN (9-20) mg/dL Creatinine (0.66-1.25) mg/dL Glucose (74-99) mg/dL POC Glucose (mg/dL) 124 H 154 H 103 H (75-99) mg/dL Calcium (8.4-10.2) mg/dL AST (17-59) U/L ALT (21-72) U/L Total Protein (6.3-8.2) g/dL Albumin (3.5-5.0) g/dL 07/25/18 07/25/18 07/25/18 Range/Units 04:25 04:25 06:24 RBC 4.09 L (4.30-5.90) m/uL Hgb 11.2 L (13.0-17.5) gm/dL Hct 36.5 L (39.0-53.0) % MCHC 30.6 L (31.0-37.0) g/dL RDW 15.9 H (11.5-15.5) % Plt Count 136 L (150-450) k/uL Neutrophils # 8.9 H (1.3-7.7) k/uL Lymphocytes # 0.9 L (1.0-4.8) k/uL BUN 38 H (9-20) mg/dL Creatinine 1.64 H (0.66-1.25) mg/dL Glucose 106 H (74-99) mg/dL POC Glucose (mg/dL) 114 H (75-99) mg/dL Calcium 7.7 L (8.4-10.2) mg/dL AST 65 H (17-59) U/L ALT 118 H (21-72) U/L Total Protein 5.4 L (6.3-8.2) g/dL Albumin 2.4 L (3.5-5.0) g/dL Microbiology - Last 24 Hours (Table) 07/21/18 13:33 Blood Culture - Preliminary Blood No Growth after 72 hours Assessment and Plan (1) Abnormal CT of the abdomen Current Visit: Yes Status: Acute Code(s): R93.5 - ABN FINDINGS ON DX IMAGING OF ABD REGIONS, INC RETROPERITON SNOMED Code(s): 51365061677114285 (2) Enterocolitis Current Visit: Yes Status: Acute Code(s): K52.9 - NONINFECTIVE GASTROENTERITIS AND COLITIS, UNSPECIFIED SNOMED Code(s): 05001667 (3) Abdominal pain Current Visit: Yes Status: Acute Code(s): R10.9 - UNSPECIFIED ABDOMINAL PAIN SNOMED Code(s): 22045870 (4) Coagulopathy Current Visit: Yes Status: Acute Code(s): D68.9 - COAGULATION DEFECT, UNSPECIFIED SNOMED Code(s): 32098071 (5) Elevated lactic acid level Current Visit: Yes Status: Acute Code(s): R79.89 - OTHER SPECIFIED ABNORMAL FINDINGS OF BLOOD CHEMISTRY SNOMED Code(s): 4281912 (6) GI bleed Current Visit: Yes Status: Acute Code(s): K92.2 - GASTROINTESTINAL HEMORRHAGE, UNSPECIFIED SNOMED Code(s): 00498622 (7) Lactic acidosis Current Visit: Yes Status: Acute Code(s): E87.2 - ACIDOSIS SNOMED Code(s) : 36232940 (8) Leukocytosis Current Visit: Yes Status: Acute Code(s): D72.829 - ELEVATED WHITE BLOOD CELL COUNT, UNSPECIFIED SNOMED Code(s): 542685157 (9) Atrial fibrillation with RVR Current Visit: No Status: Acute Code(s): I48.91 - UNSPECIFIED ATRIAL FIBRILLATION SNOMED Code(s): 961406210388485 (10) S/P BKA (below knee amputation) unilateral Current Visit: No Status: Acute Code(s): Z89.519 - ACQUIRED ABSENCE OF UNSPECIFIED LEG BELOW KNEE SNOMED Code(s): 870304896
[2018-07-25 12:06] LABS: Glucose,Whole Blood 139 mg/dL (75-99)
[2018-07-25] MEDS: DEXTROSE 5%-0.9% NACL 1,000 ML IV SCH (13:17)
--- NOTE | 2018-07-25 13:30 | P.PN ---
Subjective Progress Note Date: 07/25/18 Principal diagnosis: Acute ischemic colitis 82-year-old female patient, a very poor historian, extremity of Dr. Collier, came into the emergency department because a few days history of lower abdominal pain. The patient had some limited nausea. No emesis. He did have bowel movements that were liquidy and 2 bouts were noted in the emergency department. The stool was positive for Hemoccult. On admission, the patient lactic acid level of 7.2. His AST was 516, ALP was 321 and alkaline phosphatase was 191 month and he had a lipase of 79 and a amylase of 122. 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 There was a prominent fluids within mildly thickened mid to lower abdominal small bowel loops in addition to liquid stool throughout the colon. This raises the suspicion for enterocolitis. The patient also has a large prostate and moderate circumferential bladder wall thickening and a gallbladder showing mild wall thickening. The patient received 2 L of IV fluids. No hypotension. Abdominal pain has somewhat subsided. The patient is still having some tenderness and lower abdominal wall area. Note that the patient has chronic atrial fibrillation. Nevertheless,, the patient is anticoagulated and the patient is therapeutic on his PT/INR admission. Other comorbidities include COPD, congestion heart failure, coronary artery disease with previous myocardial infarction, hypothyroidism, chronic A. fib failure, diabetes mellitus and history of dementia. He has severe arthritis and bilateral shoulder replacements. No recent antibiotic intake. No travel history. He is covered with IV Zosyn as an empiric antibiotic coverage. On 07/22/2018, I'm seeing this patient for a follow-up. I saw this patient emergency department yesterday and was suspicious that he may have a underlying colitis, possibly of an ischemic type. The patient got transferred to the ICU and overnight he was given IV fluids and he received fluids in the order of 4 L. He continued to have a lower urine output throughout the night. He still having some lower abdominal pain which is rather diffuse. His white cell count is elevated at 15.4 today. His lactic acid peaked at 10.4 and gradually coming down to 2.9. Meanwhile, the patient had some increased nausea. He did have an emesis yesterday and NG tube was inserted. The liver function studies are also abnormal with an AST of 318, ALT of 263 and an alkaline phosphatase of 52. Ultrasound the abdomen and the gallbladder was done and showed changes consistent with cholecystitis. He is covered with IV Zosyn as an empiric antibiotic coverage. Blood cultures been negative. He did develop severe metabolic acidosis and the bicarb level today is down to 11 within the night Of 21 and it creatinine came up to 1.7. INR today is at 3.1. Underlying rhythm is a chair fibrillation. She of any chest pain. No symptoms of shortness of breath. He has underlying dementia and he has diminished level of consciousness. GI consultation and general surgical consultation were both requested. A follow-up letter some of the abdomen shows no pneumoperitoneum 07/23/2018, the patient is still having some lower abdominal pain. The patient remains in intensive care unit. The patient is being resuscitated IV fluids and currently the patient is on a bicarb drip and he is also covered with IV Zosyn. He did have some bloody bowel movements yesterday, a total of 3 episodes and this morning he had a brown liquidy bowel movement. Previous stool evaluation was negative for C. diff. The patient is suspected to have an underlying ischemic colitis. Also, LFTs were abnormal and the patient had changes consistent with cholecystitis on the CAT scan of the abdomen and ultrasound of the right upper quadrant. On today's blood work, AST and ALP are downtrending. The bilirubin is at 1.2. The patient has improvement in the lactic acid level which is normalized. The white cell count is at 15.0. The patient has a serum bicarbonate is up to 26. Abdomen however remains quite tender in the mid in the lower abdominal wall bilaterally without any significant right upper quadrant tenderness. Gen. surgery even with the patient and they have made recommendations for a HIDA scan. INR today is at 1.7 and the patient at the [facility] is currently on hold. Clinically, he is awake yet weak and lethargic. NG tube is in place and the total amount of output overnight has been approximately 100 mL. He is afebrile. Renal function is impaired in the creatinine is up to 2.0. A triple lumen catheter was also inserted yesterday for IV access and hemodynamic monitoring. He remains on a Cardizem drip for rate control at the rate of 5 mg an hour. 07/24/2018, the patient is doing well. His abdominal pain has subsided and the patient is having less of an abdominal pain on today's evaluation. The patient clinically is improved. He is awake and alert. He is following simple commands. NG tube is in place. He remains nothing by mouth. A repeat CAT scan of the abdomen and pelvis was done yesterday and showed extensive wall thickening of the right colon and the sigmoid colon consistent with ischemic colitis. The patient also has cardiomegaly. Small bilateral pleural effusion also present. The patient is afebrile. No further episodes of GI bleed for now. Hemoglobin is stable. Lactic acid acid levels are normalized. White cell count is also improving. The patient had metabolic acidosis which has recovered. Liver functions is also improving. Output from the NG tube is minimal at this point. No signs of any respiratory distress. He remains on IV Zosyn. Anticoagulation is currently on hold. General surgeries on the case. On , patient remains in the ICU, feeling better clinically, hardly any pain or discomfort. Remains on antibiotics, anticoagulation therapy is on hold , general surgery is following. Patient remains nothing by mouth, his last CT of the chest done 2 days ago was reviewed. Consistent with ischemic colitis. No active GI bleeding, hemoglobin is stable. His lactic acid normalized. See count is 10.4 hemoglobin is 11.2. Renal profile was reviewed BUN is 38 creatinine is 1.64. Improving compared to a few days ago. Objective - Vital Signs Vital signs: Vital Signs Temp 97.6 F 07/25/18 12:00 Pulse 71 07/25/18 13:00 Resp 12 07/25/18 13:00 BP 134/71 07/25/18 13:00 Pulse Ox 100 07/25/18 13:00 Intake & Output 07/24/18 07/25/18 07/25/18 18:59 06:59 18:59 Intake Total 900.0 925.0 575 Output Total 505 1125 497 Balance 395.0 -200.0 78 Weight 82.4 kg Intake: IV 825 900 575 Dextrose 5%-0.9% NaCl 1, 825 900 525 000 ml @ 75 mls/hr IV . [id number] [facility] Rx#:[id number] Piperacillin-Tazobactam 3 50 .375 gm In Dextrose/Water 1 50ml.bag @ 12.5 mls/hr IVPB Q8HR [facility] Rx#: [id number] Intake, IV Titration 75.0 25.0 Amount Piperacillin-Tazobactam 3 75.0 25.0 .375 gm In Dextrose/Water 1 50ml.bag @ 12.5 mls/hr IVPB Q8HR [facility] Rx#: [id number] Output: Urine 505 1123 497 Stool 2 Other: Voiding Method Indwelling Catheter Indwelling Catheter Indwelling Catheter - Exam GENERAL EXAM: Alert, active, comfortable in no apparent distress. Hard of hearing. The patient has an NG tube in place with minimal amount of output. HEAD: Normocephalic. EYES: Normal reaction of pupils, equal size. NOSE: Clear with pink turbinates. THROAT: No erythema or exudates. NECK: No masses, no difficulty in JVD. CHEST: No chest wall deformity. LUNGS: Equal air entry with no wheeze, rhonchi or dullness. Crackles in the right posterior base. Few crackles at lung bases bilaterally. CVS: Irregular S1 and S2 normal with no audible murmurs, irregular regular rhythm. ABDOMEN: No hepatosplenomegaly, normal bowel sounds, no guarding or rigidity. There is mild lower abdominal wall tenderness. Has improved significantly and the patient is much more soft compared to yesterday. No rebound tenderness. No guarding. Bowel sounds are hypoactive. SPINE: No scoliosis or deformity SKIN: No rashes CENTRAL NERVOUS SYSTEM: No focal deficits, tone is normal in all 4 extremities. The patient has dementia. He does not have good insight of his condition. He does not have any good recollection and memory on recent or old events. His fluctuation in mental status probably related to underlying sepsis, metabolic encephalopathy and dementia. Extremities: There is no significant peripheral edema. No clubbing, no cyanosis. Peripheral pulses are intact. The patient is a below amputation left lower extremity. - Labs CBC & Chem 7: 07/25/18 04:25 07/25/18 04:25 Labs: Abnormal Lab Results - Last 24 Hours (Table) 07/24/18 07/25/18 07/25/18 Range/Units 17:07 01:25 04:25 RBC 4.09 L (4.30-5.90) m/uL Hgb 11.2 L (13.0-17.5) gm/dL Hct 36.5 L (39.0-53.0) % MCHC 30.6 L (31.0-37.0) g/dL RDW 15.9 H (11.5-15.5) % Plt Count 136 L (150-450) k/uL Neutrophils # 8.9 H (1.3-7.7) k/uL Lymphocytes # 0.9 L (1.0-4.8) k/uL BUN (9-20) mg/dL Creatinine (0.66-1.25) mg/dL Glucose (74-99) mg/dL POC Glucose (mg/dL) 154 H 103 H (75-99) mg/dL Calcium (8.4-10.2) mg/dL AST (17-59) U/L ALT (21-72) U/L Total Protein (6.3-8.2) g/dL Albumin (3.5-5.0) g/dL 07/25/18 07/25/18 07/25/18 Range/Units 04:25 06:24 12:04 RBC (4.30-5.90) m/uL Hgb (13.0-17.5) gm/dL Hct (39.0-53.0) % MCHC (31.0-37.0) g/dL RDW (11.5-15.5) % Plt Count (150-450) k/uL Neutrophils # (1.3-7.7) k/uL Lymphocytes # (1.0-4.8) k/uL BUN 38 H (9-20) mg/dL Creatinine 1.64 H (0.66-1.25) mg/dL Glucose 106 H (74-99) mg/dL POC Glucose (mg/dL) 114 H 139 H (75-99) mg/dL Calcium 7.7 L (8.4-10.2) mg/dL AST 65 H (17-59) U/L ALT 118 H (21-72) U/L Total Protein 5.4 L (6.3-8.2) g/dL Albumin 2.4 L (3.5-5.0) g/dL Microbiology - Last 24 Hours (Table) 07/21/18 13:33 Blood Culture - Preliminary Blood No Growth after 72 hours Assessment and Plan Assessment: 1 ischemic colitis with secondary lower abdominal pain, acute, associated with lactic acidosis. Clinically the patient improved significantly and his abdominal pain is subsided, hemodynamically stable, the patient was covered with IV Zosyn and abdominal pain is improved and the lactic acid levels have normalized. 2 abnormal LFTs , improving and the HIDA scan was also negative for acute cholecystitis 3 lactic acidosis, and the level is normalized for now 4 acute leukocytosis, improving 5 coronary artery disease 6 congestion heart failure with ejection fraction of 45-50% 7 chronic atrial fibrillation maintained on long-term anticoagulation, currently warfarin is on hold due to episodes of GI bleeding secondary to ischemic colitis. 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 Hearing 11 severe arthritis with bilateral shoulder and knee replacement 12 BPH 13. Debility and impaired performance and functional status second above- mentioned comorbidities 14 pseudotumor within the right lung , patient has fluid within the right fissure that has been visualized on previous CAT scans and chest x-rays. 15 hypertension 6. Acute kidney injury in the creatinine is improving, creatinine is 1.6 for today. Recommendation: Continue antibiotics, IV fluids, advanced diet as recommended by surgery, continue to monitor electrolytes and renal profile, continue to hold anticoagulations therapy, we will consider transfer the patient out of the ICU today. And need to be monitored closely. . Time with Patient: Less than 30
--- NOTE | 2018-07-25 14:20 | P.CRDCN ---
History of Present Illness History of present illness: This is Dr. Stein dictating a consult on this patient The patient was interviewed and examined by me IMPRESSION / ASSESSMENT: Permanent atrial fibrillation PLAN: Rate controlled atrial fibrillation HPI Patient presented with abdominal pain and diarrhea. He has known permanent atrial fibrillation and takes Coumadin for this. Cardiogenic was consulted on account of atrial fibrillation with RVR ROS: No fever chills or rigors, no cough, phlegm or expectoration, no nausea, vomiting or diarrhea, no hematuria, dysuria, no musculoskeletal complaints, no strokes or seizures, no skin lesions. EXAMINATION pulse rate in the 60s and 70s, blood pressure 134/71 mmHg respirations are shallow Breath sounds are reduced bilaterally Heart sounds are irregular no murmurs Extremities are warm REVIEW OF LABS, ECG Hemoglobin 11.8, electrolytes normal, BUN 38 creatinine 1.64 Twelve-lead ECG shows atrial fibrillation with RVR with intermittent PVCs and downsloping ST depression in V5 and V6 Past Medical History Past Medical History: Atrial Fibrillation, Chest Pain / Angina, Heart Failure, GERD/Reflux, Hearing Disorder / Deafness, Hyperlipidemia, Hypertension, Prostate Disorder Additional Past Medical History / Comment(s): Coronary artery disease, previous myocardial infarction, chronic atrial fibrillation, COPD, congestion heart failure with a previous ejection fraction 45-50% in addition to moderate to severe aortic valve sclerosis, mild AF, mild AR, moderate concentric left ventricular hypertrophy/hypertensive heart disease, diabetes mellitus, dementia , obstructive sleep apnea, hypothyroidism, BPH, osteoarthritis, previous bilateral knee replacement, previous bilateral shoulder replacement, pt does'nt have his hearing aids.communicated best with him by writting out questions, 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 History of Any Multi-Drug Resistant Organisms: None Reported Date of last positivie culture/infection: 05/18/18 MDRO Source:: ANKLE Past Surgical History: Joint Replacement Additional Past Surgical History / Comment(s): bilateral knee replacements, bilateral rotator cuff repairs, left BKA -pt stated due to infection Past Anesthesia/Blood Transfusion Reactions: No Reported Reaction Smoking Status: Former smoker - Past Family History Father History Unknown: Yes Mother History Unknown: Yes Medications and Allergies Home Medications Medication Instructions Recorded Confirmed Type Warfarin Sodium [Coumadin] 2.5 mg PO DAILY 11/30/16 07/21/18 History Atorvastatin [Lipitor] 20 mg PO HS@2100 01/19/17 07/21/18 History Furosemide [Lasix] 40 mg PO DAILY@0600 01/19/17 07/21/18 History Metoprolol Tartrate [Lopressor] 50 mg PO BID@0900,2100 01/19/17 07/21/18 History Aspirin 81 mg PO DAILY 11/05/17 07/21/18 History Sennosides [Senna] 8.6 mg PO BID 11/05/17 07/21/18 History Omeprazole 40 mg PO DAILY #14 capsule.dr 06/11/18 07/21/18 Rx Levothyroxine Sodium 25 mcg PO DAILY 07/21/18 07/21/18 History Lisinopril [Zestril] 20 mg PO DAILY 07/21/18 07/21/18 History Sertraline HCl [Zoloft] 50 mg PO HS 07/21/18 07/21/18 History Sucralfate [Carafate] 1 gm PO QID 07/21/18 07/21/18 History Allergies Allergy/AdvReac Type Severity Reaction Status Date / Time No Known Allergies Allergy Verified 07/21/18 12:13 Physical Exam Vitals: Vital Signs Temp Pulse Resp BP Pulse Ox 07/25/18 13:00 71 12 134/71 100 07/25/18 12:30 60 10 L 112/61 99 07/25/18 12:00 97.6 F 74 11 L 132/68 99 07/25/18 11:30 68 10 L 113/50 99 07/25/18 11:00 68 12 107/56 100 07/25/18 10:30 68 12 129/67 100 07/25/18 10:00 79 18 143/76 100 07/25/18 09:30 72 18 87/57 98 07/25/18 09:00 77 10 L 86/52 99 07/25/18 08:30 82 13 104/62 97 07/25/18 08:00 97.6 F 106 H 20 140/93 98 07/25/18 07:30 89 20 166/81 95 07/25/18 07:00 94 16 166/111 100 07/25/18 06:30 100 18 163/104 90 L 07/25/18 06:00 95 19 146/98 92 L 07/25/18 05:30 112 H 18 147/103 85 L 09/17/18 05:00 109 H 19 174/104 91 L 18 04:30 94 16 146/85 93 L 07/25/18 04:00 98.8 F 89 23 152/96 99 18 03:30 99 25 H 156/94 90 L 07/25/18 03:00 107 H 42 H 168/94 91 L 18 02:30 103 H 33 H 147/95 91 L 07/25/18 02:00 90 16 127/77 88 L 07/25/18 01:30 89 13 117/77 99 07/25/18 01:00 98 17 177/108 99 07/25/18 00:30 89 15 155/91 100 07/25/18 00:00 97.7 F 93 18 144/95 88 L 07/24/18 23:30 78 15 158/59 96 07/24/18 23:03 80 14 134/74 99 07/24/18 23:00 60 17 134/74 93 L 07/24/18 22:30 82 16 143/80 92 L 07/24/18 22:00 74 17 134/83 96 07/24/18 21:30 77 14 133/81 87 L 07/24/18 21:00 83 13 121/76 92 L 07/24/18 20:30 67 14 143/83 95 07/24/18 20:00 98.8 F 92 19 117/77 98 07/24/18 19:30 77 14 160/78 100 07/24/18 19:00 97 14 155/78 96 07/24/18 18:30 88 16 154/85 97 07/24/18 18:00 103 H 19 152/95 88 L 07/24/18 17:30 97 18 160/73 85 L 07/24/18 17:00 94 22 139/83 97 07/24/18 16:30 75 12 127/72 99 07/24/18 16:00 97.9 F 90 13 147/83 98 07/24/18 15:30 89 17 151/77 94 L 07/24/18 15:00 75 26 H 139/85 95 07/24/18 14:30 84 22 123/72 97 Intake and Output 07/24/18 07/25/18 07/25/18 22:59 06:59 14:59 Intake Total 650.0 600 575 Output Total 299 976 497 Balance 351.0 -376 78 Intake: IV 600 600 575 Dextrose 5%-0.9% NaCl 1, 600 600 525 000 ml @ 75 mls/hr IV . [id number] [facility] Rx#:[id number] Piperacillin-Tazobactam 3 50 .375 gm In Dextrose/Water 1 50ml.bag @ 12.5 mls/hr IVPB Q8HR [facility] Rx#: [id number] Intake, IV Titration 50.0 Amount Piperacillin-Tazobactam 3 50.0 .375 gm In Dextrose/Water 1 50ml.bag @ 12.5 mls/hr IVPB Q8HR [facility] Rx#: [id number] Output: Urine 298 975 497 Stool 1 1 Other: Voiding Method Indwelling Catheter Indwelling Catheter Indwelling Catheter Weight 82.4 kg Results 07/25/18 04:25 07/25/18 04:25 Cardiac Enzymes 07/25/18 Range/Units 04:25 AST 65 H (17-59) U/L CBC 07/25/18 Range/Units 04:25 WBC 10.4 (3.8-10.6) k/uL RBC 4.09 L (4.30-5.90) m/uL Hgb 11.2 L (13.0-17.5) gm/dL Hct 36.5 L (39.0-53.0) % Plt Count 136 L (150-450) k/uL Comprehensive Metabolic Panel 07/24/18 07/25/18 Range/Units 17:00 04:25 Sodium 138 (137-145) mmol/L Potassium 3.7 3.8 (3.5-5.1) mmol/L Chloride 106 (98-107) mmol/L Carbon Dioxide 27 (22-30) mmol/L BUN 38 H (9-20) mg/dL Creatinine 1.64 H (0.66-1.25) mg/dL Glucose 106 H (74-99) mg/dL Calcium 7.7 L (8.4-10.2) mg/dL AST 65 H (17-59) U/L ALT 118 H (21-72) U/L Alkaline Phosphatase 118 (38-126) U/L Total Protein 5.4 L (6.3-8.2) g/dL Albumin 2.4 L (3.5-5.0) g/dL Current Medications Generic Name Dose Route Start Last Admin Trade Name Freq PRN Reason Stop Dose Admin Piperacillin/Tazobactam/ 50 mls @ 12.5 mls/hr 07/22/18 00:00 07/25/18 08:35 Dextrose 3.375 gm/ IV Solution IVPB 12.5 mls/hr Q8HR [facility] Administration Dextrose/Sodium Chloride 1,000 mls @ 75 mls/hr 07/24/18 08:30 07/25/18 13:17 Dextrose 5%-Ns Iv Soln IV 75 mls/hr .[id number] [facility] Administration Insulin Aspart 0 unit 07/22/18 12:45 07/25/18 12:08 Novolog SQ 1 unit Q6HR [facility] Administration Protocol Levothyroxine Sodium 25 mcg 07/22/18 06:30 07/25/18 06:39 Synthroid PO 25 mcg DAILY@0630 [facility] Administration Metoprolol Tartrate 50 mg 07/21/18 21:00 07/25/18 08:13 Lopressor PO 50 mg BID@0900,2100 [facility] Administration Miscellaneous Information 1 each 07/22/18 06:40 Magnesium Per Protocol MISCELLANE DAILY PRN Per Protocol Protocol Miscellaneous Information 1 each 07/24/18 05:52 Potassium Per Protocol MISCELLANE DAILY PRN Per Protocol Protocol Miscellaneous Information 1 each 07/25/18 07:05 Potassium Per Protocol MISCELLANE DAILY PRN Per Protocol Protocol Ondansetron HCl 4 mg 07/22/18 09:50 Zofran IVP Q6HR PRN Nausea And Vomiting Pantoprazole Sodium 40 mg 07/21/18 19:45 07/25/18 08:13 Protonix IVP 40 mg DAILY [facility] Administration Sertraline HCl 50 mg 07/21/18 21:00 07/24/18 20:50 Zoloft PO Not Given HS [facility] Intake and Output 07/24/18 07/25/18 07/25/18 22:59 06:59 14:59 Intake Total 650.0 600 575 Output Total 299 976 497 Balance 351.0 -376 78 Intake: IV 600 600 575 Dextrose 5%-0.9% NaCl 1, 600 600 525 000 ml @ 75 mls/hr IV . [id number] [facility] Rx#:[id number] Piperacillin-Tazobactam 3 50 .375 gm In Dextrose/Water 1 50ml.bag @ 12.5 mls/hr IVPB Q8HR [facility] Rx#: [id number] Intake, IV Titration 50.0 Amount Piperacillin-Tazobactam 3 50.0 .375 gm In Dextrose/Water 1 50ml.bag @ 12.5 mls/hr IVPB Q8HR [facility] Rx#: [id number] Output: Urine 298 975 497 Stool 1 1 Other: Voiding Method Indwelling Catheter Indwelling Catheter Indwelling Catheter Weight 82.4 kg 07/25/18 04:25 07/25/18 04:25
[2018-07-25 17:45] LABS: Glucose,Whole Blood 114 mg/dL (75-99)
--- NOTE | 2018-07-25 19:30 | P.PN ---
Subjective Progress Note Date: 07/25/18 Principal diagnosis: Abdominal pain, ischemic colitis Patient reports that abdominal pain is greatly improved. No further bright red blood per rectum. Objective - Vital Signs Vital signs: Vital Signs Temp 97.6 F 07/25/18 16:00 Pulse 70 07/25/18 16:00 Resp 16 07/25/18 16:00 BP 124/68 07/25/18 16:00 Pulse Ox 99 07/25/18 16:00 Intake & Output 07/25/18 07/25/18 07/26/18 06:59 18:59 06:59 Intake Total 925.0 875 Output Total 1125 688 Balance -200.0 187 Weight 82.4 kg 82.4 kg Intake: IV 900 875 Dextrose 5%-0.9% NaCl 1, 900 775 000 ml @ 75 mls/hr IV . [id number] [facility] Rx#:[id number] Piperacillin-Tazobactam 3 100 .375 gm In Dextrose/Water 1 50ml.bag @ 12.5 mls/hr IVPB Q8HR [facility] Rx#: [id number] Intake, IV Titration 25.0 Amount Piperacillin-Tazobactam 3 25.0 .375 gm In Dextrose/Water 1 50ml.bag @ 12.5 mls/hr IVPB Q8HR [facility] Rx#: [id number] Output: Urine 1123 687 Stool 2 1 Other: Voiding Method Indwelling Catheter Indwelling Catheter - Exam On physical examination, patient appears comfortable in no apparent distress. HEAD: Normocephalic, atraumatic. EYES: No scleral icterus. No conjunctival injection. MOUTH: No lesions, tongue midline. NECK: Trachea midline, no gross abnormalities. CHEST: Clear to auscultation with no wheezing or rhonchi appreciated. HEART: Regular rate and rhythm. ABDOMEN: Soft. Bowel sounds are positive. No organomegaly. No guarding or rigidity. Less tender than prior exam. - Labs CBC & Chem 7: 07/25/18 04:25 07/25/18 17:34 Labs: Abnormal Lab Results - Last 24 Hours (Table) 07/25/18 07/25/18 07/25/18 Range/Units 01:25 04:25 04:25 RBC 4.09 L (4.30-5.90) m/uL Hgb 11.2 L (13.0-17.5) gm/dL Hct 36.5 L (39.0-53.0) % MCHC 30.6 L (31.0-37.0) g/dL RDW 15.9 H (11.5-15.5) % Plt Count 136 L (150-450) k/uL Neutrophils # 8.9 H (1.3-7.7) k/uL Lymphocytes # 0.9 L (1.0-4.8) k/uL BUN 38 H (9-20) mg/dL Creatinine 1.64 H (0.66-1.25) mg/dL Glucose 106 H (74-99) mg/dL POC Glucose (mg/dL) 103 H (75-99) mg/dL Calcium 7.7 L (8.4-10.2) mg/dL AST 65 H (17-59) U/L ALT 118 H (21-72) U/L Total Protein 5.4 L (6.3-8.2) g/dL Albumin 2.4 L (3.5-5.0) g/dL 07/25/18 07/25/18 07/25/18 Range/Units 06:24 12:04 17:43 RBC (4.30-5.90) m/uL Hgb (13.0-17.5) gm/dL Hct (39.0-53.0) % MCHC (31.0-37.0) g/dL RDW (11.5-15.5) % Plt Count (150-450) k/uL Neutrophils # (1.3-7.7) k/uL Lymphocytes # (1.0-4.8) k/uL BUN (9-20) mg/dL Creatinine (0.66-1.25) mg/dL Glucose (74-99) mg/dL POC Glucose (mg/dL) 114 H 139 H 114 H (75-99) mg/dL Calcium (8.4-10.2) mg/dL AST (17-59) U/L ALT (21-72) U/L Total Protein (6.3-8.2) g/dL Albumin (3.5-5.0) g/dL Microbiology - Last 24 Hours (Table) 07/21/18 13:33 Blood Culture - Preliminary Blood No Growth after 96 hours Assessment and Plan (1) Abdominal pain Narrative/Plan: Abdominal pain with CT findings suggestive of right-sided and sigmoid colitis after blood per rectum is likely in a patient with a known history of coronary artery disease that these findings are due to ischemic colitis. Less likely infectious etiology. Current Visit: Yes Status: Acute Code(s): R10.9 - UNSPECIFIED ABDOMINAL PAIN SNOMED Code(s): 70595282 (2) Abnormal CT of the abdomen Narrative/Plan: As above. Current Visit: Yes Status: Acute Code(s): R93.5 - ABN FINDINGS ON DX IMAGING OF ABD REGIONS, INC RETROPERITON SNOMED Code(s): 88208788466576863 (3) GI bleed Narrative/Plan: Blood per rectum in the setting of abdominal pain and CT findings of colitis likely secondary to ischemia. Current Visit: Yes Status: Acute Code(s): K92.2 - GASTROINTESTINAL HEMORRHAGE, UNSPECIFIED SNOMED Code(s): 38205123 Plan: Supportive care Appreciate recommendations from surgery Diaper surgical service Continue antibiotic therapy Optimize blood pressure Monitor hemoglobin and transfuse as needed If any signs or symptoms of recurrent pain occur would recommend emergency imaging Thank you for allowing us to participate in the care of this patient we will continue to follow
[2018-07-25] MEDS: SERTRALINE 50 MG TAB PO SCH (20:11)
--- NOTE | 2018-07-25 23:00 | PN ---
PROGRESS NOTE DATE OF SERVICE: 07/25/2018 REASON FOR FOLLOWUP: 1. Possible ischemic colitis. 2. Right lateral ankle wound. INTERVAL HISTORY: The patient is afebrile. He has been breathing more comfortably. Denies significant chest pain. Abdominal pain is currently controlled and recently has decreased. No nausea, no vomiting. Denies pain to the right lateral neck ankle wound area. PHYSICAL EXAMINATION: Blood pressure is 140/74 with a pulse of 66, temperature 97.7 He is 99% on 4 L nasal cannula. General description is an elderly male lying in bed in no distress. RESPIRATORY SYSTEM: Unlabored breathing, clear to auscultation anteriorly. HEART: S1, S2, regular rate and rhythm. ABDOMEN: Soft, mildly rigidity. The right lateral ankle wound is currently dressed up, no obvious drainage on the dressing. LABS: Hemoglobin 11.2, white count of 10.4 with a BUN of 38, creatinine is 1.64. DIAGNOSTIC IMPRESSION AND PLAN: 1. Patient admitted to the hospital with sepsis, concern for possible ischemic colitis, currently being treated medically. The patient's white count has normalized. Currently on Zosyn. oral antibiotic therapy. 2. Patient with right lateral ankle wound. Local wound care with Aquacel Silver dressing and keep the area off pressure. MMODL / IJN: [id number] /
[2018-07-26 00:26] LABS: Glucose,Whole Blood 129 mg/dL (75-99)
[2018-07-26] MEDS: INSULIN ASPART 100 UNIT/ML 1 ML 10 ML VIAL SQ SCH ×4 (00:44→20:18)
[2018-07-26] MEDS: DEXTROSE 5%-0.9% NACL 1,000 ML IV SCH ×2 (03:03→10:32)
[2018-07-26 06:20] LABS: Glucose,Whole Blood 116 mg/dL (75-99)
[2018-07-26 06:29] LABS: Basophils % (A) 0 %; Eosinophils # (A) 0.3 k/uL (0-0.7); Eosinophils % (A) 3 %; HCT 36.5 % (39.0-53.0); HGB 11.7 gm/dL (13.0-17.5); Hypochromasia Slight; Lymphocytes # (A) 1.1 k/uL (1.0-4.8); Lymphocytes % (A) 10 %; MCH 28.1 pg (25.0-35.0); MCHC 31.9 g/dL (31.0-37.0); MCV 87.9 fL (80.0-100.0); Mean Platelet Volume 8.3; Monocytes # (A) 0.6 k/uL (0-1.0); Monocytes % (A) 5 %; Neutrophils # (A) 8.7 k/uL (1.3-7.7); Neutrophils % (A) 81 %; Platelet Count 118 k/uL (150-450); RBC 4.16 m/uL (4.30-5.90); RDW 15.9 % (11.5-15.5); WBC 10.8 k/uL (3.8-10.6)
[2018-07-26 06:43] LABS: Albumin 2.4 g/dL (3.5-5.0); Calcium 7.9 mg/dL (8.4-10.2); Phosphorus 3.1 mg/dL (2.5-4.5); Total Bilirubin 0.8 mg/dL (0.2-1.3); Total Protein 5.5 g/dL (6.3-8.2)
[2018-07-26 06:52] LABS: Potassium 3.9 mmol/L (3.5-5.1)
[2018-07-26] MEDS: METOPROLOL TARTRATE 50 MG TAB PO SCH ×2 (08:28→20:25)
[2018-07-26] MEDS: LEVOTHYROXINE 25 MCG TAB PO SCH (08:28)
[2018-07-26] MEDS: PANTOPRAZOLE 40 MG/10 ML VIAL IVP SCH (08:28)
--- NOTE | 2018-07-26 10:16 | P.PN ---
Subjective Progress Note Date: 07/26/18 This is an 82-year-old male patient of Dr. kelly. Patient presented to the emergency room with complaints of abdominal pain and diarrhea patient also states he's been having episodes of emesis. Patient has a known past medical history history of atrial fibrillation which she takes Coumadin. Chest pain, heart failure GERD, hyperlipidemia, hypertension and prostate disorder. Patient is extremely hard of hearing and therefore a poor historian. CT of abdomen completed in emergency room showing a small bilateral pleural effusion, borderline cardiomegaly, mild diffuse tenderness Scaccia type II. Correlate for fluid overload state. Partially visualized rounded area in the right mid to lower lung on the first slice this could represent a mass or pseudotumor due to fluid within the minor seizure. Consider initial assessment chest x-ray. Prominent fluid with a mildly thickened mid to lower abdominal small bowel loops additional liquid stool throughout the colon. Correlate for enteritis or enterocolitis. Prostatomegaly. Chest x-ray completed showing masslike areas of consolidation the right greater than left midlung. This was present to some extent on the 11/07/2017 exam making loculated pleural fluid more likely than underlying neoplasm. CT completed showing atrial fibrillation with rapid ventricular response with premature ventricular or aberrantly conducted complexes. Patient was started on Cardizem drip. Initial WBC 15.2. Lactic acid 6.4. Lactic acid increasing to 10.4. Patient received 4 L of IV fluid per critical care team. Repeat lactic acid 5.7. AST 318 ALT 263 and alkaline phosphatase 152. INR is 3.1 patient admitted to the intensive care unit and Dr. Calzada per critical care consulted. Dr. Whaley per GI service is consulted. Dr. Shahid per surgical service is consulted. Per nursing staff patient did have episodes of approximately 150 mL of bloody stool this a.m. Discussed case at bedside with Dr. Calzada per critical care. Concerns for ischemic colitis. Orders placed to reverse Coumadin with vitamin K. Bicarb gtt initiated per critical care. Abdominal x-ray ordered per critical care. Surgical services paged per nursing staff. On 07/23/2018 patient was seen and examined in ICU he is alert and oriented 3 in no apparent distress, he has NG tube in, he is complaining of abdominal pain , he had episodes of bloody diarrhea are clear, he denies any vomiting, he denies any chest pain or shortness of breath no cough and no urinary symptoms. On 07/24/2018 patient was seen and examined in ICU he is more drowsy today, but awake easily and respond to questions abdominal pain has improved, he had greenish color bowel movement without any bleeding, he denies any vomiting there is no fever or chills no headache no chest pain no shortness of breath no cough and no urinary symptoms. 07/25/2018 patient remains in the intensive care unit. Patient is sleepy but arousable. Per nursing staff patient has not had any blood in stool. Patient denies any vomiting or nausea. Denies any urinary symptoms On 07/26/2018 patient has been out of the intensive care unit to [facility] care. Patient is sleepy but arousable. Patient is alert but extremely hard of hearing. At this time patient denies chest pain or shortness of breath. Denies any nausea vomiting or diarrhea. Denies any urinary burning or frequency. Objective - Vital Signs Vital signs: Vital Signs Temp 98.1 F 07/26/18 08:00 Pulse 72 07/26/18 08:00 Resp 18 07/26/18 08:00 BP 128/82 07/26/18 08:00 Pulse Ox 94 L 07/26/18 08:00 Intake & Output 07/25/18 07/26/18 07/26/18 18:59 06:59 18:59 Intake Total 875 600 Output Total 688 351 1 Balance 187 249 -1 Weight 82.4 kg 0 g 82.1 kg Intake: IV 875 600 Dextrose 5%-0.9% NaCl 1, 775 600 000 ml @ 75 mls/hr IV . [id number] [facility] Rx#:[id number] Piperacillin-Tazobactam 3 100 .375 gm In Dextrose/Water 1 50ml.bag @ 12.5 mls/hr IVPB Q8HR [facility] Rx#: [id number] Output: Urine 687 350 Stool 1 1 1 Other: Voiding Method Indwelling Catheter Indwelling Catheter Indwelling Catheter - Exam Head normocephalic Neck supple Lungs clear to auscultation bilaterally no wheezing or crackles Heart regular rate and rhythm S1-S2, no rub or gallop Abdomen is soft nontender nondistended positive bowel sounds no hepatosplenomegaly Extremities no edema Neuro alert and orientated to 3 - Labs CBC & Chem 7: 07/26/18 06:03 07/26/18 06:03 Labs: Abnormal Lab Results - Last 24 Hours (Table) 07/25/18 07/25/18 07/26/18 Range/Units 12:04 17:43 00:20 WBC (3.8-10.6) k/uL RBC (4.30-5.90) m/uL Hgb (13.0-17.5) gm/dL Hct (39.0-53.0) % RDW (11.5-15.5) % Plt Count (150-450) k/uL Neutrophils # (1.3-7.7) k/uL Chloride (98-107) mmol/L BUN (9-20) mg/dL Creatinine (0.66-1.25) mg/dL Glucose (74-99) mg/dL POC Glucose (mg/dL) 139 H 114 H 129 H (75-99) mg/dL Calcium (8.4-10.2) mg/dL ALT (21-72) U/L Total Protein (6.3-8.2) g/dL Albumin (3.5-5.0) g/dL 07/26/18 07/26/18 07/26/18 Range/Units 06:03 06:03 06:18 WBC 10.8 H (3.8-10.6) k/uL RBC 4.16 L (4.30-5.90) m/uL Hgb 11.7 L (13.0-17.5) gm/dL Hct 36.5 L (39.0-53.0) % RDW 15.9 H (11.5-15.5) % Plt Count 118 L (150-450) k/uL Neutrophils # 8.7 H (1.3-7.7) k/uL Chloride 108 H (98-107) mmol/L BUN 32 H (9-20) mg/dL Creatinine 1.39 H (0.66-1.25) mg/dL Glucose 113 H (74-99) mg/dL POC Glucose (mg/dL) 116 H (75-99) mg/dL Calcium 7.9 L (8.4-10.2) mg/dL ALT 87 H (21-72) U/L Total Protein 5.5 L (6.3-8.2) g/dL Albumin 2.4 L (3.5-5.0) g/dL Microbiology - Last 24 Hours (Table) 07/21/18 13:33 Blood Culture - Preliminary Blood No Growth after 96 hours Assessment and Plan Assessment: 1. lower abdominal pain, acute, associated with lactic acidosis. CT abdomen completed showing prominent fluid within mildly thickened mid to lower abdominal small bowel loops been additional liquid stool throughout the colon. Correlate for enteritis and enterocolitis. Lactic acid elevated as high as 10.4. Patient did receive 4 L of IV fluid per critical care. Repeat lactic 5.6. Per nursing staff patient did have episode of approximately 150 mL of bloody stool this a.m.. GI and surgical services consulted. Abdominal x-ray completed per critical care showing persistent overall nonobstructive bowel gas pattern. Bicarb drip has been ordered per critical care vitamin K order to reverse Coumadin. Patient currently on Zosyn for antibiotic. Critical care team following closely. Per surgical services at this time continue IV antibiotics and bowel rest. Patient currently on a clear liquid diet 2. abnormal LFTs with dilated gallbladder. Abdominal ultrasound completed showing large gallbladder mild wall thickening and pericholecystic fluid consistent with cholecystitis. No gallstones identified no dilated ducts. Dr. Shahid for surgical service is consulted. Liver enzymes improving AST 44, ALT 87 and alkaline phosphatase 111 3. diarrhea with lactic acidosis. C. diff negative 4. Sepsis related to possible ischemic colitis. Initial lactic acid 7.2. Lactic acid increasing to as high as 10.4. Patient received 4 L of IV fluid per critical care. This a.m. lactic acid 5.7. Sepsis protocol initiated. Currently on Zosyn for antibiotic. Repeat lactic acid 1.6. White blood cell 10.8 5. history of coronary artery disease 6. congestion heart failure with ejection fraction of 45-50% 7. chronic atrial fibrillation maintained on long-term medical condition with warfarin with therapeutic PT/INR. Coumadin on hold due to GI bleed. INR 3.1. Vit K has been ordered per critical care. Cardiology services consulted. 8. 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 History of dementia 10. History of Hearing 11. 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 History of BPH 13. Debility and impaired performance and functional status second above- mentioned comorbidities 14. pseudotumor within the right lung , patient has fluid within the right fissure that has been visualized on previous CAT scans and chest x-rays. 15. History of essential hypertension. 16. Per nursing staff concerns for aspiration. NG tube was placed to LIS. X- ray obtained showing overall stable findings, cardiomegaly with central vascular congestion and bilateral perihilar edema and/or infiltrate is small to tiny right greater than left pleural effusions are redemonstrated. Dr. Calzada following for pulmonary and critical care. Patient currently on Zosyn 17. Atrial fibrillation with rapid ventricular response. Patient does have history of A. fib and was on Coumadin.. Patient started on Cardizem drip. Due to possible surgical intervention. Coumadin has been reversed with vitamin K per critical care team. Heart rate currently in the 70s and 80s. 18. Low urine output. Patient was given 4 L of fluid throughout night. Critical care team following 19. Acute kidney injury. patient did received fluid resuscitation per sepsis protocol per critical care. Continue to monitor closely. Creatinine improving to 1.39 and bun 32 DVT prophylaxis SCDs and GI prophylaxis Protonix Social work has been consulted for initiation of discharge planning I performed an examination of the patient and discussed their management with the Nurse Practitioner. I have reviewed the Nurse Practitioner's notes and agree with the documented findings and plan of care
--- NOTE | 2018-07-26 10:24 | P.PN ---
Subjective Progress Note Date: 07/26/18 Principal diagnosis: Abdominal pain ischemic colitis Feels better. No bleeding. Abdominal pain much improved. Tolerating liquid diet. Objective - Vital Signs Vital signs: Vital Signs Temp 98.1 F 07/26/18 08:00 Pulse 72 07/26/18 08:00 Resp 18 07/26/18 08:00 BP 128/82 07/26/18 08:00 Pulse Ox 94 L 07/26/18 08:00 Intake & Output 07/25/18 07/26/18 07/26/18 18:59 06:59 18:59 Intake Total 875 600 Output Total 688 351 1 Balance 187 249 -1 Weight 82.4 kg 0 g 82.1 kg Intake: IV 875 600 Dextrose 5%-0.9% NaCl 1, 775 600 000 ml @ 75 mls/hr IV . [id number] [facility] Rx#:[id number] Piperacillin-Tazobactam 3 100 .375 gm In Dextrose/Water 1 50ml.bag @ 12.5 mls/hr IVPB Q8HR [facility] Rx#: [id number] Output: Urine 687 350 Stool 1 1 1 Other: Voiding Method Indwelling Catheter Indwelling Catheter Indwelling Catheter - Exam General appearance: The patient is alert, oriented, in no acute distress. HET: Head is normocephalic and atraumatic. Pupils are equal and reactive. Oropharynx is clear without lesions. Neck: Supple without lymphadenopathy. Trachea midline. Heart: S1 S2. Regular rate and rhythm. Lungs: No crackles or wheezes are heard. Abdomen: Soft, nontender, nondistended with bowel sounds. No peritoneal signs. No palpable organomegaly or masses. - Labs CBC & Chem 7: 07/26/18 06:03 07/26/18 06:03 Labs: Abnormal Lab Results - Last 24 Hours (Table) 07/25/18 07/25/18 07/26/18 Range/Units 12:04 17:43 00:20 WBC (3.8-10.6) k/uL RBC (4.30-5.90) m/uL Hgb (13.0-17.5) gm/dL Hct (39.0-53.0) % RDW (11.5-15.5) % Plt Count (150-450) k/uL Neutrophils # (1.3-7.7) k/uL Chloride (98-107) mmol/L BUN (9-20) mg/dL Creatinine (0.66-1.25) mg/dL Glucose (74-99) mg/dL POC Glucose (mg/dL) 139 H 114 H 129 H (75-99) mg/dL Calcium (8.4-10.2) mg/dL ALT (21-72) U/L Total Protein (6.3-8.2) g/dL Albumin (3.5-5.0) g/dL 07/26/18 07/26/18 07/26/18 Range/Units 06:03 06:03 06:18 WBC 10.8 H (3.8-10.6) k/uL RBC 4.16 L (4.30-5.90) m/uL Hgb 11.7 L (13.0-17.5) gm/dL Hct 36.5 L (39.0-53.0) % RDW 15.9 H (11.5-15.5) % Plt Count 118 L (150-450) k/uL Neutrophils # 8.7 H (1.3-7.7) k/uL Chloride 108 H (98-107) mmol/L BUN 32 H (9-20) mg/dL Creatinine 1.39 H (0.66-1.25) mg/dL Glucose 113 H (74-99) mg/dL POC Glucose (mg/dL) 116 H (75-99) mg/dL Calcium 7.9 L (8.4-10.2) mg/dL ALT 87 H (21-72) U/L Total Protein 5.5 L (6.3-8.2) g/dL Albumin 2.4 L (3.5-5.0) g/dL Microbiology - Last 24 Hours (Table) 07/21/18 13:33 Blood Culture - Preliminary Blood No Growth after 96 hours Assessment and Plan (1) Abdominal pain Narrative/Plan: Abdominal pain lower GI bleed suggestive of right-sided sigmoid colitis blood per rectum component of acute blood loss anemia possible ischemic less likely infectious with clinical improvement. Current Visit: Yes Status: Acute Code(s): R10.9 - UNSPECIFIED ABDOMINAL PAIN SNOMED Code(s): 47887389 (2) Leukocytosis Current Visit: Yes Status: Acute Code(s): D72.829 - ELEVATED WHITE BLOOD CELL COUNT, UNSPECIFIED SNOMED Code(s): 598883745 Plan: 1. Diet advancement per surgery. Continue with supportive measures. Will follow as needed. Return to office in 2-3 weeks for re-evaluation and discussion of possible outpatient endoscopy; unsure if patient has had a previous colonoscopy. Assessment and plan a care discussed with Dr. Johns
[2018-07-26] MEDS: PIPERACILLIN-TAZOBACTAM 3.375 GM in DEXTROSE/WATER 1 50ML.BAG IVPB SCH ×3 (10:33→23:08)
[2018-07-26 11:54] LABS: Glucose,Whole Blood 83 mg/dL (75-99)
--- NOTE | 2018-07-26 12:13 | P.PN ---
Subjective Progress Note Date: 07/26/18 Principal diagnosis: Ischemic colitis 82-year-old female patient, a very poor historian, patient of Dr. Collier, came into the emergency department because a few days history of lower abdominal pain. The patient had some limited nausea. No emesis. He did have bowel movements that were liquidy and 2 bouts were noted in the emergency department. The stool was positive for Hemoccult. On admission, the patient lactic acid level of 7.2. His AST was 516, ALP was 321 and alkaline phosphatase was 191 month and he had a lipase of 79 and a amylase of 122. 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 There was a prominent fluids within mildly thickened mid to lower abdominal small bowel loops in addition to liquid stool throughout the colon. This raises the suspicion for enterocolitis. The patient also has a large prostate and moderate circumferential bladder wall thickening and a gallbladder showing mild wall thickening. The patient received 2 L of IV fluids. No hypotension. Abdominal pain has somewhat subsided. The patient is still having some tenderness and lower abdominal wall area. Note that the patient has chronic atrial fibrillation. Nevertheless,, the patient is anticoagulated and the patient is therapeutic on his PT/INR admission. Other comorbidities include COPD, congestion heart failure, coronary artery disease with previous myocardial infarction, hypothyroidism, chronic A. fib failure, diabetes mellitus and history of dementia. He has severe arthritis and bilateral shoulder replacements. No recent antibiotic intake. No travel history. He is covered with IV Zosyn as an empiric antibiotic coverage. On 07/22/2018, I'm seeing this patient for a follow-up. I saw this patient emergency department yesterday and was suspicious that he may have a underlying colitis, possibly of an ischemic type. The patient got transferred to the ICU and overnight he was given IV fluids and he received fluids in the order of 4 L. He continued to have a lower urine output throughout the night. He still having some lower abdominal pain which is rather diffuse. His white cell count is elevated at 15.4 today. His lactic acid peaked at 10.4 and gradually coming down to 2.9. Meanwhile, the patient had some increased nausea. He did have an emesis yesterday and NG tube was inserted. The liver function studies are also abnormal with an AST of 318, ALT of 263 and an alkaline phosphatase of 52. Ultrasound the abdomen and the gallbladder was done and showed changes consistent with cholecystitis. He is covered with IV Zosyn as an empiric antibiotic coverage. Blood cultures been negative. He did develop severe metabolic acidosis and the bicarb level today is down to 11 within the night Of 21 and it creatinine came up to 1.7. INR today is at 3.1. Underlying rhythm is a chair fibrillation. She of any chest pain. No symptoms of shortness of breath. He has underlying dementia and he has diminished level of consciousness. GI consultation and general surgical consultation were both requested. A follow-up letter some of the abdomen shows no pneumoperitoneum 07/23/2018, the patient is still having some lower abdominal pain. The patient remains in intensive care unit. The patient is being resuscitated IV fluids and currently the patient is on a bicarb drip and he is also covered with IV Zosyn. He did have some bloody bowel movements yesterday, a total of 3 episodes and this morning he had a brown liquidy bowel movement. Previous stool evaluation was negative for C. diff. The patient is suspected to have an underlying ischemic colitis. Also, LFTs were abnormal and the patient had changes consistent with cholecystitis on the CAT scan of the abdomen and ultrasound of the right upper quadrant. On today's blood work, AST and ALP are downtrending. The bilirubin is at 1.2. The patient has improvement in the lactic acid level which is normalized. The white cell count is at 15.0. The patient has a serum bicarbonate is up to 26. Abdomen however remains quite tender in the mid in the lower abdominal wall bilaterally without any significant right upper quadrant tenderness. Gen. surgery even with the patient and they have made recommendations for a HIDA scan. INR today is at 1.7 and the patient at the [facility] is currently on hold. Clinically, he is awake yet weak and lethargic. NG tube is in place and the total amount of output overnight has been approximately 100 mL. He is afebrile. Renal function is impaired in the creatinine is up to 2.0. A triple lumen catheter was also inserted yesterday for IV access and hemodynamic monitoring. He remains on a Cardizem drip for rate control at the rate of 5 mg an hour. 07/24/2018, the patient is doing well. His abdominal pain has subsided and the patient is having less of an abdominal pain on today's evaluation. The patient clinically is improved. He is awake and alert. He is following simple commands. NG tube is in place. He remains nothing by mouth. A repeat CAT scan of the abdomen and pelvis was done yesterday and showed extensive wall thickening of the right colon and the sigmoid colon consistent with ischemic colitis. The patient also has cardiomegaly. Small bilateral pleural effusion also present. The patient is afebrile. No further episodes of GI bleed for now. Hemoglobin is stable. Lactic acid acid levels are normalized. White cell count is also improving. The patient had metabolic acidosis which has recovered. Liver functions is also improving. Output from the NG tube is minimal at this point. No signs of any respiratory distress. He remains on IV Zosyn. Anticoagulation is currently on hold. General surgeries on the case. On , patient remains in the ICU, feeling better clinically, hardly any pain or discomfort. Remains on antibiotics, anticoagulation therapy is on hold , general surgery is following. Patient remains nothing by mouth, his last CT of the chest done 2 days ago was reviewed. Consistent with ischemic colitis. No active GI bleeding, hemoglobin is stable. His lactic acid normalized. See count is 10.4 hemoglobin is 11.2. Renal profile was reviewed BUN is 38 creatinine is 1.64. Improving compared to a few days ago. The patient is seen again today 07/26/2018 in follow-up on the selective care unit. He is awake and alert in no acute distress. He is maintaining good O2 saturations in the 90s on 4 L/m per nasal cannula. He's been afebrile. Hemodynamically stable. He is tolerating a liquid diet thus far. No active GI bleeding noted. Hemoglobin 11.7. White count 10.8. Creatinine 1.39. He remains on IV Protonix. Objective - Vital Signs Vital signs: Vital Signs Temp 98.1 F 07/26/18 08:00 Pulse 72 07/26/18 08:00 Resp 18 07/26/18 12:00 BP 128/82 07/26/18 08:00 Pulse Ox 94 L 07/26/18 08:00 Intake & Output 07/25/18 07/26/18 07/26/18 18:59 06:59 18:59 Intake Total 875 600 Output Total 688 351 2 Balance 187 249 -2 Weight 82.4 kg 0 g 82.1 kg Intake: IV 875 600 Dextrose 5%-0.9% NaCl 1, 775 600 000 ml @ 75 mls/hr IV . [id number] [facility] Rx#:[id number] Piperacillin-Tazobactam 3 100 .375 gm In Dextrose/Water 1 50ml.bag @ 12.5 mls/hr IVPB Q8HR [facility] Rx#: [id number] Output: Urine 687 350 Stool 1 1 2 Other: Voiding Method Indwelling Catheter Indwelling Catheter Indwelling Catheter - Exam GENERAL EXAM: Alert, active, comfortable in no apparent distress. Hard of hearing. HEAD: Normocephalic. EYES: Normal reaction of pupils, equal size. NOSE: Clear with pink turbinates. THROAT: No erythema or exudates. NECK: No masses, no difficulty in JVD. CHEST: No chest wall deformity. LUNGS: Equal air entry with no wheeze, rhonchi or dullness. Crackles in the right posterior base. Few crackles at lung bases bilaterally. CVS: Irregular S1 and S2 normal with no audible murmurs, irregular regular rhythm. ABDOMEN: No hepatosplenomegaly, normal bowel sounds, no guarding or rigidity. There is mild lower abdominal wall tenderness. Has improved significantly and the patient is much more soft compared to yesterday. No rebound tenderness. No guarding. Bowel sounds are hypoactive. SPINE: No scoliosis or deformity SKIN: No rashes CENTRAL NERVOUS SYSTEM: No focal deficits, tone is normal in all 4 extremities. The patient has dementia. He does not have good insight of his condition. He does not have any good recollection and memory on recent or old events. His fluctuation in mental status probably related to underlying sepsis, metabolic encephalopathy and dementia. Extremities: There is no significant peripheral edema. No clubbing, no cyanosis. Peripheral pulses are intact. The patient is a below amputation left lower extremity. - Labs CBC & Chem 7: 07/26/18 06:03 07/26/18 06:03 Labs: Abnormal Lab Results - Last 24 Hours (Table) 07/25/18 07/25/18 07/26/18 Range/Units 12:04 17:43 00:20 WBC (3.8-10.6) k/uL RBC (4.30-5.90) m/uL Hgb (13.0-17.5) gm/dL Hct (39.0-53.0) % RDW (11.5-15.5) % Plt Count (150-450) k/uL Neutrophils # (1.3-7.7) k/uL Chloride (98-107) mmol/L BUN (9-20) mg/dL Creatinine (0.66-1.25) mg/dL Glucose (74-99) mg/dL POC Glucose (mg/dL) 139 H 114 H 129 H (75-99) mg/dL Calcium (8.4-10.2) mg/dL ALT (21-72) U/L Total Protein (6.3-8.2) g/dL Albumin (3.5-5.0) g/dL 07/26/18 07/26/18 07/26/18 Range/Units 06:03 06:03 06:18 WBC 10.8 H (3.8-10.6) k/uL RBC 4.16 L (4.30-5.90) m/uL Hgb 11.7 L (13.0-17.5) gm/dL Hct 36.5 L (39.0-53.0) % RDW 15.9 H (11.5-15.5) % Plt Count 118 L (150-450) k/uL Neutrophils # 8.7 H (1.3-7.7) k/uL Chloride 108 H (98-107) mmol/L BUN 32 H (9-20) mg/dL Creatinine 1.39 H (0.66-1.25) mg/dL Glucose 113 H (74-99) mg/dL POC Glucose (mg/dL) 116 H (75-99) mg/dL Calcium 7.9 L (8.4-10.2) mg/dL ALT 87 H (21-72) U/L Total Protein 5.5 L (6.3-8.2) g/dL Albumin 2.4 L (3.5-5.0) g/dL Microbiology - Last 24 Hours (Table) 07/21/18 13:33 Blood Culture - Preliminary Blood No Growth after 96 hours Assessment and Plan Assessment: Impression: 1 ischemic colitis with secondary lower abdominal pain, acute, associated with lactic acidosis. Clinically the patient improved significantly and his abdominal pain is subsided, hemodynamically stable, the patient was covered with IV Zosyn and abdominal pain is improved and the lactic acid levels have normalized. 2 abnormal LFTs , improving and the HIDA scan was also negative for acute cholecystitis 3 lactic acidosis, and the level is normalized for now 4 acute leukocytosis, improving 5 coronary artery disease 6 congestion heart failure with ejection fraction of 45-50% 7 chronic atrial fibrillation maintained on long-term anticoagulation, currently warfarin is on hold due to episodes of GI bleeding secondary to ischemic colitis. 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 Hearing 11 severe arthritis with bilateral shoulder and knee replacement 12 BPH 13. Debility and impaired performance and functional status second above- mentioned comorbidities 14 pseudotumor within the right lung , patient has fluid within the right fissure that has been visualized on previous CAT scans and chest x-rays. 15 hypertension 16. Acute kidney injury in the creatinine is improving, creatinine is 1.3 for today. Recommendation: The patient was seen and evaluated by Dr. Villavicencio. He is currently stable from the pulmonary and critical care standpoint. Still remains on 4 L of oxygen. Remains on Zosyn. We will continue to follow. I, the cosigning physician, performed a history & physical examination of the patient. Lungs sounds with faint crackles in the posterior bases. Maintaining good O2 saturations in the 90s on 4 L/m per nasal cannula. I discussed the assessment and plan of care with my nurse practitioner, Sandra Reed. I attest to the above note as dictated by her.
--- NOTE | 2018-07-26 13:46 | P.PN ---
<TongLanieAnita M - Last Filed: 07/26/18 13:43> Subjective Progress Note Date: 07/26/18 82-year-old ma seen at the bedside this morning sitting up in a chair. He states I feel 100% better than when I came in" 8 a half a sandwich today getting hungry. Patient is denying any abdominal pain when questioning. Patient's being followed by surgical service for ischemic colitis. Objective - Vital Signs Vital signs: Vital Signs Temp 98.3 F 07/26/18 12:00 Pulse 62 07/26/18 12:00 Resp 18 07/26/18 12:00 BP 131/75 07/26/18 12:00 Pulse Ox 95 07/26/18 12:00 Intake & Output 07/25/18 07/26/18 07/26/18 18:59 06:59 18:59 Intake Total 875 600 Output Total 688 351 2 Balance 187 249 -2 Weight 82.4 kg 0 g 82.1 kg Intake: IV 875 600 Dextrose 5%-0.9% NaCl 1, 775 600 000 ml @ 75 mls/hr IV . [id number] [facility] Rx#:[id number] Piperacillin-Tazobactam 3 100 .375 gm In Dextrose/Water 1 50ml.bag @ 12.5 mls/hr IVPB Q8HR [facility] Rx#: [id number] Output: Urine 687 350 Stool 1 1 2 Other: Voiding Method Indwelling Catheter Indwelling Catheter Indwelling Catheter - Exam Physical exam Sitting up in a chair appears in no acute distress alert hard of hearing Lungs adequate air movement bilaterally no shortness of breath Heart S1-S2 audible regular Abdomen soft no facial grimacing with palpitation to the abdominal wall no nausea no vomiting taking a diet passing gas no stool nontender Extremities no edema - Labs CBC & Chem 7: 07/26/18 06:03 07/26/18 06:03 Labs: Abnormal Lab Results - Last 24 Hours (Table) 07/25/18 07/26/18 07/26/18 Range/Units 17:43 00:20 06:03 WBC (3.8-10.6) k/uL RBC (4.30-5.90) m/uL Hgb (13.0-17.5) gm/dL Hct (39.0-53.0) % RDW (11.5-15.5) % Plt Count (150-450) k/uL Neutrophils # (1.3-7.7) k/uL Chloride 108 H (98-107) mmol/L BUN 32 H (9-20) mg/dL Creatinine 1.39 H (0.66-1.25) mg/dL Glucose 113 H (74-99) mg/dL POC Glucose (mg/dL) 114 H 129 H (75-99) mg/dL Calcium 7.9 L (8.4-10.2) mg/dL ALT 87 H (21-72) U/L Total Protein 5.5 L (6.3-8.2) g/dL Albumin 2.4 L (3.5-5.0) g/dL 07/26/18 07/26/18 Range/Units 06:03 06:18 WBC 10.8 H (3.8-10.6) k/uL RBC 4.16 L (4.30-5.90) m/uL Hgb 11.7 L (13.0-17.5) gm/dL Hct 36.5 L (39.0-53.0) % RDW 15.9 H (11.5-15.5) % Plt Count 118 L (150-450) k/uL Neutrophils # 8.7 H (1.3-7.7) k/uL Chloride (98-107) mmol/L BUN (9-20) mg/dL Creatinine (0.66-1.25) mg/dL Glucose (74-99) mg/dL POC Glucose (mg/dL) 116 H (75-99) mg/dL Calcium (8.4-10.2) mg/dL ALT (21-72) U/L Total Protein (6.3-8.2) g/dL Albumin (3.5-5.0) g/dL Microbiology - Last 24 Hours (Table) 07/21/18 13:33 Blood Culture - Preliminary Blood No Growth after 96 hours Assessment and Plan Assessment: Impression Present on admission bilateral lower abdominal pain frequent stooling suspect possible ischemic colitis Present on admission abnormal liver function studies with a dilated gallbladder possible cholecystitis Dementia with no behavior disturbance Chronic atrial fibrillation on long-term anticoagulation Coumadin Present on admission INR 3 Previous history of left below the knee amputation Very hard of hearing Debilitated Per advance directives no CODE STATUS Congestive heart failure systolic EF 45-50 no evidence of an exacerbation Present on admission lactic acidosis improving Frequent stooling C. diff negative Present on admission leukocytosis Plan Continue Zosyn broad-spectrum antibiotics Will monitor patient's clinical course addressing surgical issues as they arise IV fluid hydration Patient would be a poor surgical candidate given patient's comorbidities Will follow with you DVT and GI prophylaxis The above impression and plan of care have been discussed and directed by signing physician. Anita Fortune nurse practitioner acting as scribe for signing physician. <May Shahid N - Last Filed: 07/27/18 06:55> Objective - Vital Signs Vital signs: Vital Signs Temp 98.2 F 07/27/18 04:00 Pulse 90 07/27/18 04:00 Resp 18 07/27/18 04:00 BP 147/80 07/27/18 04:00 Pulse Ox 95 07/27/18 04:00 Intake & Output 07/26/18 07/26/18 07/27/18 06:59 18:59 06:59 Intake Total 600 240 800 Output Total 351 3 200 Balance 249 237 600 Weight 0 g 82.1 kg 83.7 kg Intake: IV 600 800 Dextrose 5%-0.9% NaCl 1, 600 750 000 ml @ 75 mls/hr IV . [id number] [facility] Rx#:[id number] Piperacillin-Tazobactam 3 50 .375 gm In Dextrose/Water 1 50ml.bag @ 12.5 mls/hr IVPB Q8HR [facility] Rx#: [id number] Oral 240 Output: Urine 350 200 Stool 1 3 Other: Voiding Method Indwelling Catheter Indwelling Catheter Indwelling Catheter - Labs CBC & Chem 7: 07/26/18 06:03 07/26/18 06:03 Labs: Abnormal Lab Results - Last 24 Hours (Table) 07/26/18 07/27/18 07/27/18 Range/Units 18:21 00:47 06:53 POC Glucose (mg/dL) 119 H 136 H 177 H (75-99) mg/dL Microbiology - Last 24 Hours (Table) 07/21/18 13:33 Blood Culture - Preliminary Blood No Growth after 120 hours Assessment and Plan (1) Abnormal CT of the abdomen Current Visit: Yes Status: Acute Code(s): R93.5 - ABN FINDINGS ON DX IMAGING OF ABD REGIONS, INC RETROPERITON SNOMED Code(s): 94556842708466219 (2) Enterocolitis Current Visit: Yes Status: Acute Code(s): K52.9 - NONINFECTIVE GASTROENTERITIS AND COLITIS, UNSPECIFIED SNOMED Code(s): 87706849 (3) Abdominal pain Current Visit: Yes Status: Acute Code(s): R10.9 - UNSPECIFIED ABDOMINAL PAIN SNOMED Code(s): 91152514 (4) Coagulopathy Current Visit: Yes Status: Acute Code(s): D68.9 - COAGULATION DEFECT, UNSPECIFIED SNOMED Code(s): 82724728 (5) Elevated lactic acid level Current Visit: Yes Status: Acute Code(s): R79.89 - OTHER SPECIFIED ABNORMAL FINDINGS OF BLOOD CHEMISTRY SNOMED Code(s): 3369420 (6) GI bleed Current Visit: Yes Status: Acute Code(s): K92.2 - GASTROINTESTINAL HEMORRHAGE, UNSPECIFIED SNOMED Code(s): 71712613 (7) Lactic acidosis Current Visit: Yes Status: Acute Code(s): E87.2 - ACIDOSIS SNOMED Code(s) : 27551085 (8) Leukocytosis Current Visit: Yes Status: Acute Code(s): D72.829 - ELEVATED WHITE BLOOD CELL COUNT, UNSPECIFIED SNOMED Code(s): 570344750 (9) Atrial fibrillation with RVR Current Visit: No Status: Acute Code(s): I48.91 - UNSPECIFIED ATRIAL FIBRILLATION SNOMED Code(s): 778463112119885 (10) S/P BKA (below knee amputation) unilateral Current Visit: No Status: Acute Code(s): Z89.519 - ACQUIRED ABSENCE OF UNSPECIFIED LEG BELOW KNEE SNOMED Code(s): 154521403 (11) Ischemic colitis Current Visit: Yes Status: Acute Code(s): K55.9 - VASCULAR DISORDER OF INTESTINE, UNSPECIFIED SNOMED Code(s): 36060055
[2018-07-26 18:25] LABS: Glucose,Whole Blood 119 mg/dL (75-99)
[2018-07-26] MEDS: SERTRALINE 50 MG TAB PO SCH (20:25)
[2018-07-26] MEDS: HEPARIN SODIUM,PORCINE 5,000 UNIT/ML 1 ML VIAL SQ SCH (20:25)
--- NOTE | 2018-07-26 21:58 | PN ---
PROGRESS NOTE DATE OF SERVICE: 07/26/2018. REASON FOR FOLLOWUP: 1. Possible ischemic colitis. 2. Right lateral ankle wound. INTERVAL HISTORY: The patient is currently afebrile. He has been breathing more comfortably. Denies significant chest pain or cough. Abdominal pain has improved. No nausea, vomiting and no diarrhea. EXAMINATION: Blood pressure is 146/71 with a pulse of 70, temperature 97.5. He is 93% on 4L nasal cannula. General description is an elderly male, lying in bed in no distress. RESPIRATORY SYSTEM: Unlabored breathing. Clear to auscultation anteriorly. HEART: S1, S2. Regular rate and rhythm. ABDOMEN: Soft. No tenderness. EXTREMITIES: No edema of the feet. LABS: Hemoglobin is 11.7, white count 10.8 with a BUN of 32, creatinine is 1.39. DIAGNOSTIC IMPRESSION AND PLAN: 1. Patient admitted to the hospital with sepsis, source likely ischemic colitis, seems to be responding to the medical management. Currently on Zosyn, will be a short course of oral antibiotic on discharge. 2. Patient with right lateral ankle wound. Local wound care to continue with Aquacel silver dressing. Continue with supportive care. MMODL / IJN: [id number] /
[2018-07-27 00:49] LABS: Glucose,Whole Blood 136 mg/dL (75-99)
[2018-07-27] MEDS: INSULIN ASPART 100 UNIT/ML 1 ML 10 ML VIAL SQ SCH ×5 (00:53→18:57)
[2018-07-27] MEDS: DEXTROSE 5%-0.9% NACL 1,000 ML IV SCH ×2 (03:22→15:49)
[2018-07-27] MEDS: LEVOTHYROXINE 25 MCG TAB PO SCH ×2 (06:07→07:07)
[2018-07-27 06:54] LABS: Glucose,Whole Blood 177 mg/dL (75-99)
--- NOTE | 2018-07-27 06:55 | P.PN ---
Subjective Progress Note Date: 07/25/18 CHIEF COMPLAINT: Abdominal pain HISTORY OF PRESENT ILLNESS: The patient is an 82-year-old gentleman with history of ischemic colitis. He has no new abdominal pain. He is resting comfortably. PHYSICAL EXAM: GENERAL: Well-developed in no distress. HEENT: No scleral icterus. Extraocular movements grossly intact. Hard of hearing. NECK: Supple without lymphadenopathy. CHEST: Nonlabored respirations with equal bilateral excursions. CARDIOVASCULAR: Irregular rate and rhythm. Distal 2+ pulses. ABDOMEN: Soft, nontender, nondistended MUSCULOSKELETAL: No clubbing, cyanosis, or edema. BKA of the left leg. NEURO: No focal or lateralizing signs. PSYCH: Appropriate affect. Alert and oriented to person, place and time. SKIN: Good skin turgor. Well perfused. ASSESSMENT: 1. Ischemic colitis PLAN: 1. Diet as tolerated Objective - Vital Signs Vital signs: Vital Signs Temp 97.6 F 07/25/18 12:00 Pulse 71 07/25/18 13:00 Resp 12 07/25/18 13:00 BP 134/71 07/25/18 13:00 Pulse Ox 100 07/25/18 13:00 Intake & Output 07/24/18 07/25/18 07/25/18 18:59 06:59 18:59 Intake Total 900.0 925.0 575 Output Total 505 1125 497 Balance 395.0 -200.0 78 Weight 82.4 kg Intake: IV 825 900 575 Dextrose 5%-0.9% NaCl 1, 825 900 525 000 ml @ 75 mls/hr IV . [id number] [facility] Rx#:[id number] Piperacillin-Tazobactam 3 50 .375 gm In Dextrose/Water 1 50ml.bag @ 12.5 mls/hr IVPB Q8HR [facility] Rx#: [id number] Intake, IV Titration 75.0 25.0 Amount Piperacillin-Tazobactam 3 75.0 25.0 .375 gm In Dextrose/Water 1 50ml.bag @ 12.5 mls/hr IVPB Q8HR [facility] Rx#: [id number] Output: Urine 505 1123 497 Stool 2 Other: Voiding Method Indwelling Catheter Indwelling Catheter Indwelling Catheter - Labs CBC & Chem 7: 07/26/18 06:03 07/26/18 06:03 Labs: 07/25/18 04:25 07/25/18 04:25 Cardiac Enzymes 07/25/18 Range/Units 04:25 AST 65 H (17-59) U/L CBC 07/25/18 Range/Units 04:25 WBC 10.4 (3.8-10.6) k/uL RBC 4.09 L (4.30-5.90) m/uL Hgb 11.2 L (13.0-17.5) gm/dL Hct 36.5 L (39.0-53.0) % Plt Count 136 L (150-450) k/uL Comprehensive Metabolic Panel 07/24/18 07/25/18 Range/Units 17:00 04:25 Sodium 138 (137-145) mmol/L Potassium 3.7 3.8 (3.5-5.1) mmol/L Chloride 106 (98-107) mmol/L Carbon Dioxide 27 (22-30) mmol/L BUN 38 H (9-20) mg/dL Creatinine 1.64 H (0.66-1.25) mg/dL Glucose 106 H (74-99) mg/dL Calcium 7.7 L (8.4-10.2) mg/dL AST 65 H (17-59) U/L ALT 118 H (21-72) U/L Alkaline Phosphatase 118 (38-126) U/L Total Protein 5.4 L (6.3-8.2) g/dL Albumin 2.4 L (3.5-5.0) g/dL Assessment and Plan (1) Abnormal CT of the abdomen Current Visit: Yes Status: Acute Code(s): R93.5 - ABN FINDINGS ON DX IMAGING OF ABD REGIONS, INC RETROPERITON SNOMED Code(s): 66105572313384622 (2) Enterocolitis Current Visit: Yes Status: Acute Code(s): K52.9 - NONINFECTIVE GASTROENTERITIS AND COLITIS, UNSPECIFIED SNOMED Code(s): 90612580 (3) Abdominal pain Current Visit: Yes Status: Acute Code(s): R10.9 - UNSPECIFIED ABDOMINAL PAIN SNOMED Code(s): 45746966 (4) Coagulopathy Current Visit: Yes Status: Acute Code(s): D68.9 - COAGULATION DEFECT, UNSPECIFIED SNOMED Code(s): 97565107 (5) Elevated lactic acid level Current Visit: Yes Status: Acute Code(s): R79.89 - OTHER SPECIFIED ABNORMAL FINDINGS OF BLOOD CHEMISTRY SNOMED Code(s): 4440070 (6) GI bleed Current Visit: Yes Status: Acute Code(s): K92.2 - GASTROINTESTINAL HEMORRHAGE, UNSPECIFIED SNOMED Code(s): 24224953 (7) Lactic acidosis Current Visit: Yes Status: Acute Code(s): E87.2 - ACIDOSIS SNOMED Code(s) : 49063896 (8) Leukocytosis Current Visit: Yes Status: Acute Code(s): D72.829 - ELEVATED WHITE BLOOD CELL COUNT, UNSPECIFIED SNOMED Code(s): 259095662 (9) Atrial fibrillation with RVR Current Visit: No Status: Acute Code(s): I48.91 - UNSPECIFIED ATRIAL FIBRILLATION SNOMED Code(s): 140309485451075 (10) S/P BKA (below knee amputation) unilateral Current Visit: No Status: Acute Code(s): Z89.519 - ACQUIRED ABSENCE OF UNSPECIFIED LEG BELOW KNEE SNOMED Code(s): 772278342 (11) Ischemic colitis Current Visit: Yes Status: Acute Code(s): K55.9 - VASCULAR DISORDER OF INTESTINE, UNSPECIFIED SNOMED Code(s): 58154484
[2018-07-27 08:17] LABS: Albumin 2.6 g/dL (3.5-5.0); Calcium 8.1 mg/dL (8.4-10.2); Potassium 3.5 mmol/L (3.5-5.1); Total Bilirubin 0.7 mg/dL (0.2-1.3); Total Protein 5.9 g/dL (6.3-8.2)
[2018-07-27 08:22] LABS: INR 1.3 (<1.2); Prothrombin Time 12.3 sec (9.0-12.0)
[2018-07-27 08:36] LABS: Basophils % (A) 0 %; Eosinophils # (A) 0.3 k/uL (0-0.7); Eosinophils % (A) 2 %; HCT 37.4 % (39.0-53.0); HGB 11.3 gm/dL (13.0-17.5); Hypochromasia Moderate; Lymphocytes # (A) 1.1 k/uL (1.0-4.8); Lymphocytes % (A) 10 %; MCHC 30.3 g/dL (31.0-37.0); MCV 89.3 fL (80.0-100.0); Mean Platelet Volume 8.4; Monocytes # (A) 0.6 k/uL (0-1.0); Monocytes % (A) 6 %; Neutrophils # (A) 9.3 k/uL (1.3-7.7); Neutrophils % (A) 82 %; Platelet Count 141 k/uL (150-450); RBC 4.19 m/uL (4.30-5.90); RDW 15.7 % (11.5-15.5); WBC 11.4 k/uL (3.8-10.6)
[2018-07-27] MEDS: METOPROLOL TARTRATE 50 MG TAB PO SCH ×2 (09:38→19:53)
[2018-07-27] MEDS: PIPERACILLIN-TAZOBACTAM 3.375 GM in DEXTROSE/WATER 1 50ML.BAG IVPB SCH ×3 (09:38→23:28)
[2018-07-27] MEDS: PANTOPRAZOLE 40 MG/10 ML VIAL IVP SCH (09:38)
[2018-07-27] MEDS: HEPARIN SODIUM,PORCINE 5,000 UNIT/ML 1 ML VIAL SQ SCH ×2 (09:38→19:53)
[2018-07-27] MEDS ORDERED: Potassium Replacement Protocol 1 EACH MISC MISCELLANE PRN (10:34)
[2018-07-27] MEDS: POTASSIUM CHLORIDE ER 20 MEQ TAB.ER PO SCH ×2 (10:39→12:20)
--- NOTE | 2018-07-27 10:47 | P.PN ---
<Anita Fortune - Last Filed: 07/27/18 10:41> Subjective Progress Note Date: 07/27/18 82-year-old male seen sitting up in a chair no new events continues to deny any abdominal pain when questioning no stool no further episodes of bleeding. Abdominal pain continues to improve. Did note GIs recommendations continue supportive care will follow as an on needed basis follow-up office visit for GI for reevaluation has been arranged Objective - Vital Signs Vital signs: Vital Signs Temp 97 F L 07/27/18 08:00 Pulse 65 07/27/18 08:00 Resp 18 07/27/18 08:00 BP 146/75 07/27/18 08:00 Pulse Ox 95 07/27/18 08:00 Intake & Output 07/26/18 07/27/18 07/27/18 18:59 06:59 18:59 Intake Total 240 800 400 Output Total 3 200 Balance 237 600 400 Weight 82.1 kg 83.7 kg Intake: IV 800 Dextrose 5%-0.9% NaCl 1, 750 000 ml @ 75 mls/hr IV . [id number] [facility] Rx#:[id number] Piperacillin-Tazobactam 3 50 .375 gm In Dextrose/Water 1 50ml.bag @ 12.5 mls/hr IVPB Q8HR [facility] Rx#: [id number] Oral 240 400 Output: Urine 200 Stool 3 Other: Voiding Method Indwelling Catheter Indwelling Catheter Incontinent - Exam Physical exam Sitting up in a chair appears in no acute distress alert hard of hearing taking a diet with no difficulty Lungs adequate air movement bilaterally no shortness of breath no cough noted Heart S1-S2 audible regular Abdomen soft no facial grimacing with palpitation to the abdominal wall no nausea no vomiting taking a diet passing gas no stool nontender Extremities no edema - Labs CBC & Chem 7: 07/27/18 07:40 07/27/18 07:40 Labs: Abnormal Lab Results - Last 24 Hours (Table) 07/26/18 07/27/18 07/27/18 Range/Units 18:21 00:47 06:53 WBC (3.8-10.6) k/uL RBC (4.30-5.90) m/uL Hgb (13.0-17.5) gm/dL Hct (39.0-53.0) % MCHC (31.0-37.0) g/dL RDW (11.5-15.5) % Plt Count (150-450) k/uL Neutrophils # (1.3-7.7) k/uL PT (9.0-12.0) sec INR (<1.2) Chloride (98-107) mmol/L BUN (9-20) mg/dL Creatinine (0.66-1.25) mg/dL Glucose (74-99) mg/dL POC Glucose (mg/dL) 119 H 136 H 177 H (75-99) mg/dL Calcium (8.4-10.2) mg/dL Total Protein (6.3-8.2) g/dL Albumin (3.5-5.0) g/dL 07/27/18 07/27/18 07/27/18 Range/Units 07:40 07:40 07:40 WBC 11.4 H (3.8-10.6) k/uL RBC 4.19 L (4.30-5.90) m/uL Hgb 11.3 L (13.0-17.5) gm/dL Hct 37.4 L (39.0-53.0) % MCHC 30.3 L (31.0-37.0) g/dL RDW 15.7 H (11.5-15.5) % Plt Count 141 L (150-450) k/uL Neutrophils # 9.3 H (1.3-7.7) k/uL PT 12.3 H (9.0-12.0) sec INR 1.3 H (<1.2) Chloride 110 H (98-107) mmol/L BUN 29 H (9-20) mg/dL Creatinine 1.72 H (0.66-1.25) mg/dL Glucose 161 H (74-99) mg/dL POC Glucose (mg/dL) (75-99) mg/dL Calcium 8.1 L (8.4-10.2) mg/dL Total Protein 5.9 L (6.3-8.2) g/dL Albumin 2.6 L (3.5-5.0) g/dL Microbiology - Last 24 Hours (Table) 07/21/18 13:33 Blood Culture - Preliminary Blood No Growth after 120 hours Assessment and Plan Assessment: Impression Present on admission bilateral lower abdominal pain frequent stooling suspect possible ischemic colitis Present on admission abnormal liver function studies with a dilated gallbladder possible cholecystitis Dementia with no behavior disturbance Chronic atrial fibrillation on long-term anticoagulation Coumadin Present on admission INR 3 Previous history of left below the knee amputation Very hard of hearing Debilitated Per advance directives no CODE STATUS Congestive heart failure systolic EF 45-50 no evidence of an exacerbation Present on admission lactic acidosis improving Frequent stooling C. diff negative Present on admission leukocytosis Plan Continue Zosyn broad-spectrum antibiotics Will monitor patient's clinical course addressing surgical issues as they arise IV fluid hydration Patient would be a poor surgical candidate given patient's comorbidities Will follow with you DVT and GI prophylaxis Advance diet Continue supportive measures The above impression and plan of care have been discussed and directed by signing physician. Anita Fortune nurse practitioner acting as scribe for signing physician. <May Shahid N - Last Filed: 07/27/18 19:43> Objective - Vital Signs Vital signs: Vital Signs Temp 97.5 F L 07/27/18 16:00 Pulse 80 07/27/18 16:00 Resp 18 07/27/18 16:00 BP 151/89 07/27/18 16:00 Pulse Ox 93 L 07/27/18 16:00 Intake & Output 07/27/18 07/27/18 07/28/18 06:59 18:59 06:59 Intake Total 800 640 Output Total 200 Balance 600 640 Weight 83.7 kg Intake: IV 800 Dextrose 5%-0.9% NaCl 1, 750 000 ml @ 75 mls/hr IV . [id number] [facility] Rx#:[id number] Piperacillin-Tazobactam 3 50 .375 gm In Dextrose/Water 1 50ml.bag @ 12.5 mls/hr IVPB Q8HR [facility] Rx#: [id number] Oral 640 Output: Urine 200 Other: Voiding Method Indwelling Catheter Incontinent - Labs CBC & Chem 7: 07/27/18 07:40 07/27/18 07:40 Labs: Abnormal Lab Results - Last 24 Hours (Table) 07/27/18 07/27/18 07/27/18 Range/Units 00:47 06:53 07:40 WBC 11.4 H (3.8-10.6) k/uL RBC 4.19 L (4.30-5.90) m/uL Hgb 11.3 L (13.0-17.5) gm/dL Hct 37.4 L (39.0-53.0) % MCHC 30.3 L (31.0-37.0) g/dL RDW 15.7 H (11.5-15.5) % Plt Count 141 L (150-450) k/uL Neutrophils # 9.3 H (1.3-7.7) k/uL PT (9.0-12.0) sec INR (<1.2) Chloride (98-107) mmol/L BUN (9-20) mg/dL Creatinine (0.66-1.25) mg/dL Glucose (74-99) mg/dL POC Glucose (mg/dL) 136 H 177 H (75-99) mg/dL Calcium (8.4-10.2) mg/dL Total Protein (6.3-8.2) g/dL Albumin (3.5-5.0) g/dL 07/27/18 07/27/18 07/27/18 Range/Units 07:40 07:40 11:55 WBC (3.8-10.6) k/uL RBC (4.30-5.90) m/uL Hgb (13.0-17.5) gm/dL Hct (39.0-53.0) % MCHC (31.0-37.0) g/dL RDW (11.5-15.5) % Plt Count (150-450) k/uL Neutrophils # (1.3-7.7) k/uL PT 12.3 H (9.0-12.0) sec INR 1.3 H (<1.2) Chloride 110 H (98-107) mmol/L BUN 29 H (9-20) mg/dL Creatinine 1.72 H (0.66-1.25) mg/dL Glucose 161 H (74-99) mg/dL POC Glucose (mg/dL) 132 H (75-99) mg/dL Calcium 8.1 L (8.4-10.2) mg/dL Total Protein 5.9 L (6.3-8.2) g/dL Albumin 2.6 L (3.5-5.0) g/dL Microbiology - Last 24 Hours (Table) 07/21/18 13:33 Blood Culture - Final Blood No Growth after 144 hours Assessment and Plan (1) Abnormal CT of the abdomen Current Visit: Yes Status: Acute Code(s): R93.5 - ABN FINDINGS ON DX IMAGING OF ABD REGIONS, INC RETROPERITON SNOMED Code(s): 80425556381145200 (2) Enterocolitis Current Visit: Yes Status: Acute Code(s): K52.9 - NONINFECTIVE GASTROENTERITIS AND COLITIS, UNSPECIFIED SNOMED Code(s): 65006937 (3) Abdominal pain Current Visit: Yes Status: Acute Code(s): R10.9 - UNSPECIFIED ABDOMINAL PAIN SNOMED Code(s): 00559531 (4) Coagulopathy Current Visit: Yes Status: Acute Code(s): D68.9 - COAGULATION DEFECT, UNSPECIFIED SNOMED Code(s): 42419985 (5) Elevated lactic acid level Current Visit: Yes Status: Acute Code(s): R79.89 - OTHER SPECIFIED ABNORMAL FINDINGS OF BLOOD CHEMISTRY SNOMED Code(s): 4350737 (6) GI bleed Current Visit: Yes Status: Acute Code(s): K92.2 - GASTROINTESTINAL HEMORRHAGE, UNSPECIFIED SNOMED Code(s): 21869726 (7) Lactic acidosis Current Visit: Yes Status: Acute Code(s): E87.2 - ACIDOSIS SNOMED Code(s) : 83074922 (8) Leukocytosis Current Visit: Yes Status: Acute Code(s): D72.829 - ELEVATED WHITE BLOOD CELL COUNT, UNSPECIFIED SNOMED Code(s): 629032352 (9) Atrial fibrillation with RVR Current Visit: No Status: Acute Code(s): I48.91 - UNSPECIFIED ATRIAL FIBRILLATION SNOMED Code(s): 105277671970552 (10) S/P BKA (below knee amputation) unilateral Current Visit: No Status: Acute Code(s): Z89.519 - ACQUIRED ABSENCE OF UNSPECIFIED LEG BELOW KNEE SNOMED Code(s): 281009510 (11) Ischemic colitis Current Visit: Yes Status: Acute Code(s): K55.9 - VASCULAR DISORDER OF INTESTINE, UNSPECIFIED SNOMED Code(s): 33655751 Plan: Patient is clinically doing well. Diet as tolerated and will follow as needed
--- NOTE | 2018-07-27 11:41 | P.PN ---
Subjective Progress Note Date: 07/27/18 Principal diagnosis: Ischemic colitis 82-year-old female patient, a very poor historian, patient of Dr. Collier, came into the emergency department because a few days history of lower abdominal pain. The patient had some limited nausea. No emesis. He did have bowel movements that were liquidy and 2 bouts were noted in the emergency department. The stool was positive for Hemoccult. On admission, the patient lactic acid level of 7.2. His AST was 516, ALP was 321 and alkaline phosphatase was 191 month and he had a lipase of 79 and a amylase of 122. 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 There was a prominent fluids within mildly thickened mid to lower abdominal small bowel loops in addition to liquid stool throughout the colon. This raises the suspicion for enterocolitis. The patient also has a large prostate and moderate circumferential bladder wall thickening and a gallbladder showing mild wall thickening. The patient received 2 L of IV fluids. No hypotension. Abdominal pain has somewhat subsided. The patient is still having some tenderness and lower abdominal wall area. Note that the patient has chronic atrial fibrillation. Nevertheless,, the patient is anticoagulated and the patient is therapeutic on his PT/INR admission. Other comorbidities include COPD, congestion heart failure, coronary artery disease with previous myocardial infarction, hypothyroidism, chronic A. fib failure, diabetes mellitus and history of dementia. He has severe arthritis and bilateral shoulder replacements. No recent antibiotic intake. No travel history. He is covered with IV Zosyn as an empiric antibiotic coverage. On 07/22/2018, I'm seeing this patient for a follow-up. I saw this patient emergency department yesterday and was suspicious that he may have a underlying colitis, possibly of an ischemic type. The patient got transferred to the ICU and overnight he was given IV fluids and he received fluids in the order of 4 L. He continued to have a lower urine output throughout the night. He still having some lower abdominal pain which is rather diffuse. His white cell count is elevated at 15.4 today. His lactic acid peaked at 10.4 and gradually coming down to 2.9. Meanwhile, the patient had some increased nausea. He did have an emesis yesterday and NG tube was inserted. The liver function studies are also abnormal with an AST of 318, ALT of 263 and an alkaline phosphatase of 52. Ultrasound the abdomen and the gallbladder was done and showed changes consistent with cholecystitis. He is covered with IV Zosyn as an empiric antibiotic coverage. Blood cultures been negative. He did develop severe metabolic acidosis and the bicarb level today is down to 11 within the night Of 21 and it creatinine came up to 1.7. INR today is at 3.1. Underlying rhythm is a chair fibrillation. She of any chest pain. No symptoms of shortness of breath. He has underlying dementia and he has diminished level of consciousness. GI consultation and general surgical consultation were both requested. A follow-up letter some of the abdomen shows no pneumoperitoneum 07/23/2018, the patient is still having some lower abdominal pain. The patient remains in intensive care unit. The patient is being resuscitated IV fluids and currently the patient is on a bicarb drip and he is also covered with IV Zosyn. He did have some bloody bowel movements yesterday, a total of 3 episodes and this morning he had a brown liquidy bowel movement. Previous stool evaluation was negative for C. diff. The patient is suspected to have an underlying ischemic colitis. Also, LFTs were abnormal and the patient had changes consistent with cholecystitis on the CAT scan of the abdomen and ultrasound of the right upper quadrant. On today's blood work, AST and ALP are downtrending. The bilirubin is at 1.2. The patient has improvement in the lactic acid level which is normalized. The white cell count is at 15.0. The patient has a serum bicarbonate is up to 26. Abdomen however remains quite tender in the mid in the lower abdominal wall bilaterally without any significant right upper quadrant tenderness. Gen. surgery even with the patient and they have made recommendations for a HIDA scan. INR today is at 1.7 and the patient at the [facility] [place] is currently on hold. Clinically, he is awake yet weak and lethargic. NG tube is in place and the total amount of output overnight has been approximately 100 mL. He is afebrile. Renal function is impaired in the creatinine is up to 2.0. A triple lumen catheter was also inserted yesterday for IV access and hemodynamic monitoring. He remains on a Cardizem drip for rate control at the rate of 5 mg an hour. 07/24/2018, the patient is doing well. His abdominal pain has subsided and the patient is having less of an abdominal pain on today's evaluation. The patient clinically is improved. He is awake and alert. He is following simple commands. NG tube is in place. He remains nothing by mouth. A repeat CAT scan of the abdomen and pelvis was done yesterday and showed extensive wall thickening of the right colon and the sigmoid colon consistent with ischemic colitis. The patient also has cardiomegaly. Small bilateral pleural effusion also present. The patient is afebrile. No further episodes of GI bleed for now. Hemoglobin is stable. Lactic acid acid levels are normalized. White cell count is also improving. The patient had metabolic acidosis which has recovered. Liver functions is also improving. Output from the NG tube is minimal at this point. No signs of any respiratory distress. He remains on IV Zosyn. Anticoagulation is currently on hold. General surgeries on the case. On , patient remains in the ICU, feeling better clinically, hardly any pain or discomfort. Remains on antibiotics, anticoagulation therapy is on hold , general surgery is following. Patient remains nothing by mouth, his last CT of the chest done 2 days ago was reviewed. Consistent with ischemic colitis. No active GI bleeding, hemoglobin is stable. His lactic acid normalized. See count is 10.4 hemoglobin is 11.2. Renal profile was reviewed BUN is 38 creatinine is 1.64. Improving compared to a few days ago. The patient is seen again today 07/26/2018 in follow-up on the selective care unit. He is awake and alert in no acute distress. He is maintaining good O2 saturations in the 90s on 4 L/m per nasal cannula. He's been afebrile. Hemodynamically stable. He is tolerating a liquid diet thus far. No active GI bleeding noted. Hemoglobin 11.7. White count 10.8. Creatinine 1.39. He remains on IV Protonix. The patient is seen again today 07/27/2018 in follow-up on the selective care unit. He is currently sitting up in a chair at the bedside. He is awake and alert in no acute distress. He denies any worsening shortness of breath, cough or congestion. He did state just the activity of trying to get himself weighed and in the chair was quite exhausting. He is currently maintaining good O2 saturations in the mid 90s on 2 L/m per nasal cannula. He is afebrile. Hemodynamically stable. White count 11.4. Hemoglobin 11.3. INR 1.3. Creatinine 1.72. He denies any worsening abdominal discomfort. Passing flatus. No bowel movement. Tolerating a liquid diet. Objective - Vital Signs Vital signs: Vital Signs Temp 97 F L 07/27/18 08:00 Pulse 65 07/27/18 08:00 Resp 18 07/27/18 08:00 BP 146/75 07/27/18 08:00 Pulse Ox 95 07/27/18 08:00 Intake & Output 07/26/18 07/27/18 07/27/18 18:59 06:59 18:59 Intake Total 240 800 400 Output Total 3 200 Balance 237 600 400 Weight 82.1 kg 83.7 kg Intake: IV 800 Dextrose 5%-0.9% NaCl 1, 750 000 ml @ 75 mls/hr IV . [id number] Rx#:[id number] Piperacillin-Tazobactam 3 50 .375 gm In Dextrose/Water 1 50ml.bag @ 12.5 mls/hr IVPB Q8HR [facility] Rx#: [id number] Oral 240 400 Output: Urine 200 Stool 3 Other: Voiding Method Indwelling Catheter Indwelling Catheter Incontinent - Exam GENERAL EXAM: Alert, active, comfortable in no apparent distress. Hard of hearing. HEAD: Normocephalic. EYES: Normal reaction of pupils, equal size. NOSE: Clear with pink turbinates. THROAT: No erythema or exudates. NECK: No masses, no difficulty in JVD. CHEST: No chest wall deformity. LUNGS: Equal air entry with no wheeze, rhonchi or dullness. Crackles in the right posterior base. Few crackles at lung bases bilaterally. CVS: Irregular S1 and S2 normal with no audible murmurs, irregular regular rhythm. ABDOMEN: No hepatosplenomegaly, normal bowel sounds, no guarding or rigidity. There is mild lower abdominal wall tenderness. Has improved significantly and the patient is much more soft compared to yesterday. No rebound tenderness. No guarding. Bowel sounds are hypoactive. SPINE: No scoliosis or deformity SKIN: No rashes CENTRAL NERVOUS SYSTEM: No focal deficits, tone is normal in all 4 extremities. The patient has dementia. He does not have good insight of his condition. He does not have any good recollection and memory on recent or old events. His fluctuation in mental status probably related to underlying sepsis, metabolic encephalopathy and dementia. Extremities: There is no significant peripheral edema. No clubbing, no cyanosis. Peripheral pulses are intact. The patient is a below amputation left lower extremity. - Labs CBC & Chem 7: 07/27/18 07:40 07/27/18 07:40 Labs: Abnormal Lab Results - Last 24 Hours (Table) 07/26/18 07/27/18 07/27/18 Range/Units 18:21 00:47 06:53 WBC (3.8-10.6) k/uL RBC (4.30-5.90) m/uL Hgb (13.0-17.5) gm/dL Hct (39.0-53.0) % MCHC (31.0-37.0) g/dL RDW (11.5-15.5) % Plt Count (150-450) k/uL Neutrophils # (1.3-7.7) k/uL PT (9.0-12.0) sec INR (<1.2) Chloride (98-107) mmol/L BUN (9-20) mg/dL Creatinine (0.66-1.25) mg/dL Glucose (74-99) mg/dL POC Glucose (mg/dL) 119 H 136 H 177 H (75-99) mg/dL Calcium (8.4-10.2) mg/dL Total Protein (6.3-8.2) g/dL Albumin (3.5-5.0) g/dL 07/27/18 07/27/18 07/27/18 Range/Units 07:40 07:40 07:40 WBC 11.4 H (3.8-10.6) k/uL RBC 4.19 L (4.30-5.90) m/uL Hgb 11.3 L (13.0-17.5) gm/dL Hct 37.4 L (39.0-53.0) % MCHC 30.3 L (31.0-37.0) g/dL RDW 15.7 H (11.5-15.5) % Plt Count 141 L (150-450) k/uL Neutrophils # 9.3 H (1.3-7.7) k/uL PT 12.3 H (9.0-12.0) sec INR 1.3 H (<1.2) Chloride 110 H (98-107) mmol/L BUN 29 H (9-20) mg/dL Creatinine 1.72 H (0.66-1.25) mg/dL Glucose 161 H (74-99) mg/dL POC Glucose (mg/dL) (75-99) mg/dL Calcium 8.1 L (8.4-10.2) mg/dL Total Protein 5.9 L (6.3-8.2) g/dL Albumin 2.6 L (3.5-5.0) g/dL Microbiology - Last 24 Hours (Table) 07/21/18 13:33 Blood Culture - Preliminary Blood No Growth after 120 hours Assessment and Plan Assessment: Impression: 1 ischemic colitis with secondary lower abdominal pain, acute, associated with lactic acidosis. Clinically the patient improved significantly and his abdominal pain is subsided, hemodynamically stable, the patient was covered with IV Zosyn and abdominal pain is improved and the lactic acid levels have normalized. 2 abnormal LFTs , improving and the HIDA scan was also negative for acute cholecystitis 3 lactic acidosis, and the level is normalized for now 4 acute leukocytosis, improving 5 coronary artery disease 6 congestion heart failure with ejection fraction of 45-50% 7 chronic atrial fibrillation maintained on long-term anticoagulation, currently warfarin is on hold due to episodes of GI bleeding secondary to ischemic colitis. 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 Hard of Hearing 11 severe arthritis with bilateral shoulder and knee replacement 12 BPH 13. Debility and impaired performance and functional status second above- mentioned comorbidities 14 pseudotumor within the right lung , patient has fluid within the right fissure that has been visualized on previous CAT scans and chest x-rays. 15 hypertension 16. Acute kidney injury, creatinine is 1.72 for today. Recommendation: The patient was seen and evaluated by Dr. Villavicencio. He is currently stable from the pulmonary standpoint. FiO2 requirements have improved and currently on 2 L of oxygen. Remains on Zosyn. We will continue to follow. I, the cosigning physician, performed a history & physical examination of the patient. Lungs sounds with faint crackles in the posterior bases. Maintaining good O2 saturations in the 90s on 2 L/m per nasal cannula. I discussed the assessment and plan of care with my nurse practitioner, Sandra Reed. I attest to the above note as dictated by her.
[2018-07-27 11:57] LABS: Glucose,Whole Blood 132 mg/dL (75-99)
--- NOTE | 2018-07-27 12:14 | P.PN ---
Subjective Progress Note Date: 07/27/18 This is an 82-year-old male patient of Dr. kelly. Patient presented to the emergency room with complaints of abdominal pain and diarrhea patient also states he's been having episodes of emesis. Patient has a known past medical history history of atrial fibrillation which she takes Coumadin. Chest pain, heart failure GERD, hyperlipidemia, hypertension and prostate disorder. Patient is extremely hard of hearing and therefore a poor historian. CT of abdomen completed in emergency room showing a small bilateral pleural effusion, borderline cardiomegaly, mild diffuse tenderness Scaccia type II. Correlate for fluid overload state. Partially visualized rounded area in the right mid to lower lung on the first slice this could represent a mass or pseudotumor due to fluid within the minor seizure. Consider initial assessment chest x-ray. Prominent fluid with a mildly thickened mid to lower abdominal small bowel loops additional liquid stool throughout the colon. Correlate for enteritis or enterocolitis. Prostatomegaly. Chest x-ray completed showing masslike areas of consolidation the right greater than left midlung. This was present to some extent on the 11/07/2017 exam making loculated pleural fluid more likely than underlying neoplasm. CT completed showing atrial fibrillation with rapid ventricular response with premature ventricular or aberrantly conducted complexes. Patient was started on Cardizem drip. Initial WBC 15.2. Lactic acid 6.4. Lactic acid increasing to 10.4. Patient received 4 L of IV fluid per critical care team. Repeat lactic acid 5.7. AST 318 ALT 263 and alkaline phosphatase 152. INR is 3.1 patient admitted to the intensive care unit and Dr. Calzada per critical care consulted. Dr. Whaley per GI service is consulted. Dr. Shahid per surgical service is consulted. Per nursing staff patient did have episodes of approximately 150 mL of bloody stool this a.m. Discussed case at bedside with Dr. Calzada per critical care. Concerns for ischemic colitis. Orders placed to reverse Coumadin with vitamin K. Bicarb gtt initiated per critical care. Abdominal x-ray ordered per critical care. Surgical services paged per nursing staff. On 07/23/2018 patient was seen and examined in ICU he is alert and oriented 3 in no apparent distress, he has NG tube in, he is complaining of abdominal pain , he had episodes of bloody diarrhea are clear, he denies any vomiting, he denies any chest pain or shortness of breath no cough and no urinary symptoms. On 07/24/2018 patient was seen and examined in ICU he is more drowsy today, but awake easily and respond to questions abdominal pain has improved, he had greenish color bowel movement without any bleeding, he denies any vomiting there is no fever or chills no headache no chest pain no shortness of breath no cough and no urinary symptoms. 07/25/2018 patient remains in the intensive care unit. Patient is sleepy but arousable. Per nursing staff patient has not had any blood in stool. Patient denies any vomiting or nausea. Denies any urinary symptoms On 07/26/2018 patient has been out of the intensive care unit to [facility]. Patient is sleepy but arousable. Patient is alert but extremely hard of hearing. At this time patient denies chest pain or shortness of breath. Denies any nausea vomiting or diarrhea. Denies any urinary burning or frequency. On 07/27/2018 patient is currently resting comfortably. Patient is alert and oriented but extremely hard of hearing. This point patient denies chest pain or shortness breath. Patient denies any nausea vomiting or diarrhea. Patient denies urinary burning or frequency Objective - Vital Signs Vital signs: Vital Signs Temp 97 F L 07/27/18 08:00 Pulse 65 07/27/18 08:00 Resp 18 07/27/18 08:00 BP 146/75 07/27/18 08:00 Pulse Ox 95 07/27/18 08:00 Intake & Output 07/26/18 07/27/18 07/27/18 18:59 06:59 18:59 Intake Total 240 800 400 Output Total 3 200 Balance 237 600 400 Weight 82.1 kg 83.7 kg Intake: IV 800 Dextrose 5%-0.9% NaCl 1, 750 000 ml @ 75 mls/hr IV . [id number] [facility] Rx#:[id number] Piperacillin-Tazobactam 3 50 .375 gm In Dextrose/Water 1 50ml.bag @ 12.5 mls/hr IVPB Q8HR [facility] Rx#: [id number] Oral 240 400 Output: Urine 200 Stool 3 Other: Voiding Method Indwelling Catheter Indwelling Catheter Incontinent - Exam Head normocephalic Neck supple Lungs clear to auscultation bilaterally no wheezing or crackles Heart regular rate and rhythm S1-S2, no rub or gallop Abdomen is soft nontender nondistended positive bowel sounds no hepatosplenomegaly Extremities no edema Neuro alert and orientated to 3 - Labs CBC & Chem 7: 07/27/18 07:40 07/27/18 07:40 Labs: Abnormal Lab Results - Last 24 Hours (Table) 07/26/18 07/27/18 07/27/18 Range/Units 18:21 00:47 06:53 WBC (3.8-10.6) k/uL RBC (4.30-5.90) m/uL Hgb (13.0-17.5) gm/dL Hct (39.0-53.0) % MCHC (31.0-37.0) g/dL RDW (11.5-15.5) % Plt Count (150-450) k/uL Neutrophils # (1.3-7.7) k/uL PT (9.0-12.0) sec INR (<1.2) Chloride (98-107) mmol/L BUN (9-20) mg/dL Creatinine (0.66-1.25) mg/dL Glucose (74-99) mg/dL POC Glucose (mg/dL) 119 H 136 H 177 H (75-99) mg/dL Calcium (8.4-10.2) mg/dL Total Protein (6.3-8.2) g/dL Albumin (3.5-5.0) g/dL 07/27/18 07/27/18 07/27/18 Range/Units 07:40 07:40 07:40 WBC 11.4 H (3.8-10.6) k/uL RBC 4.19 L (4.30-5.90) m/uL Hgb 11.3 L (13.0-17.5) gm/dL Hct 37.4 L (39.0-53.0) % MCHC 30.3 L (31.0-37.0) g/dL RDW 15.7 H (11.5-15.5) % Plt Count 141 L (150-450) k/uL Neutrophils # 9.3 H (1.3-7.7) k/uL PT 12.3 H (9.0-12.0) sec INR 1.3 H (<1.2) Chloride 110 H (98-107) mmol/L BUN 29 H (9-20) mg/dL Creatinine 1.72 H (0.66-1.25) mg/dL Glucose 161 H (74-99) mg/dL POC Glucose (mg/dL) (75-99) mg/dL Calcium 8.1 L (8.4-10.2) mg/dL Total Protein 5.9 L (6.3-8.2) g/dL Albumin 2.6 L (3.5-5.0) g/dL 07/27/18 Range/Units 11:55 WBC (3.8-10.6) k/uL RBC (4.30-5.90) m/uL Hgb (13.0-17.5) gm/dL Hct (39.0-53.0) % MCHC (31.0-37.0) g/dL RDW (11.5-15.5) % Plt Count (150-450) k/uL Neutrophils # (1.3-7.7) k/uL PT (9.0-12.0) sec INR (<1.2) Chloride (98-107) mmol/L BUN (9-20) mg/dL Creatinine (0.66-1.25) mg/dL Glucose (74-99) mg/dL POC Glucose (mg/dL) 132 H (75-99) mg/dL Calcium (8.4-10.2) mg/dL Total Protein (6.3-8.2) g/dL Albumin (3.5-5.0) g/dL Microbiology - Last 24 Hours (Table) 07/21/18 13:33 Blood Culture - Preliminary Blood No Growth after 120 hours Assessment and Plan Assessment: 1. lower abdominal pain, acute, associated with lactic acidosis. CT abdomen completed showing prominent fluid within mildly thickened mid to lower abdominal small bowel loops been additional liquid stool throughout the colon. Correlate for enteritis and enterocolitis. Lactic acid elevated as high as 10.4. Patient did receive 4 L of IV fluid per critical care. Repeat lactic 5.6. Per nursing staff patient did have episode of approximately 150 mL of bloody stool this a.m.. GI and surgical services consulted. Abdominal x-ray completed per critical care showing persistent overall nonobstructive bowel gas pattern. Bicarb drip has been ordered per critical care vitamin K order to reverse Coumadin. Patient currently on Zosyn for antibiotic. Per surgical services at this time continue IV antibiotics and bowel rest. Patient currently tolerating regular diet. GI services have patient. Patient to follow -up outpatient to 3 weeks discussion of possible outpatient EGD. Patient remains on IV Zosyn 2. abnormal LFTs with dilated gallbladder. Abdominal ultrasound completed showing large gallbladder mild wall thickening and pericholecystic fluid consistent with cholecystitis. No gallstones identified no dilated ducts. Dr. Shahid for surgical service is consulted. Liver enzymes improving. Continue monitor closely 3. diarrhea with lactic acidosis. C. diff negative 4. Sepsis related to possible ischemic colitis. Initial lactic acid 7.2. Lactic acid increasing to as high as 10.4. Patient received 4 L of IV fluid per critical care. This a.m. lactic acid 5.7. Sepsis protocol initiated. Currently on Zosyn for antibiotic. Repeat lactic acid 1.6. White blood cell 11.4. Per infectious disease patient will require short course of oral antibiotics on discharge 5. history of coronary artery disease 6. congestion heart failure with ejection fraction of 45-50% 7. chronic atrial fibrillation maintained on long-term medical condition with warfarin with therapeutic PT/INR. Coumadin on hold due to GI bleed. INR 3.1. Vit K has been ordered per critical care. Cardiology services consulted. 8. 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 History of dementia 10. History of Hearing 11. 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 History of BPH 13. Debility and impaired performance and functional status second above- mentioned comorbidities 14. pseudotumor within the right lung , patient has fluid within the right fissure that has been visualized on previous CAT scans and chest x-rays. 15. History of essential hypertension. 16. Per nursing staff concerns for aspiration. NG tube was placed to LIS. X- ray obtained showing overall stable findings, cardiomegaly with central vascular congestion and bilateral perihilar edema and/or infiltrate is small to tiny right greater than left pleural effusions are redemonstrated. Dr. Elsi liang for pulmonary and critical care. Patient currently on Zosyn 17. Atrial fibrillation with rapid ventricular response. Patient does have history of A. fib and was on Coumadin.. Patient started on Cardizem drip. Due to possible surgical intervention. Coumadin has been reversed with vitamin K per critical care team. Heart rate currently in the 70s and 80s. 18. Low urine output. Patient was given 4 L of fluid throughout night. Critical care team following. Resolved 19. Acute kidney injury. patient did received fluid resuscitation per sepsis protocol per critical care. Continue to monitor closely. Creatinine improving to 1.39 and bun 32 DVT prophylaxis SCDs and heparin and GI prophylaxis Protonix Social work has been consulted for initiation of discharge planning. Per case management patient is refusing any rehab. Patient remains 2 person assist. Patient does live alone with minimal assistance. Case management trying to get a hold of patient's son. Dr. Barton consulted for possible inpatient rehab. I performed an examination of the patient and discussed their management with the Nurse Practitioner. I have reviewed the Nurse Practitioner's notes and agree with the documented findings and plan of care
--- NOTE | 2018-07-27 15:40 | P.CONS ---
History of Present Illness - Chief Complaint Mobility - History of Present Illness I had the opportunity to see patient for inpatient rehab consultation with regard to medical debility. He was admitted to [facility] July 21 with left lower quadrant abdominal pain. Seen by Dr. Morris for CHF and chronic A. fib. Seen by Dr. Matias who reviewed CT scans and notes ischemic colitis. Seen by cardiology for chronic and stable A. fib. Seen by Dr. caitie myers for medical. Chest x-rays followed for by basilar infiltrates. Hepatobiliary scan normal. CT of abdomen and pelvis with a right colonic and sigmoid thickening consistent with ischemic colitis. PT reports minimal assistance for functional mobility within limited endurance and fatigues quickly. OT reports moderate assistance for upper dressing in 2 person maximal assistance for lower dressing and bathing. Total assistance for toileting at 2 person maximal assistance for functional mobility. Previous functional history: Patient declines and reports that he doesn't want have anything to do with rehab facility. Review of Systems Review of systems: ENT: Denies sneezes or discharge. Eyes: Denies discharge or photophobia. Cardiac: Denies chest pain or palpitation. Pulmonary: Denies cough or shortness of breath. Gastrointestinal: Mild abdominal discomfort. Genitourinary: Denies discharge or frequency. Musculoskeletal: Denies muscle or bone aches. Neurologic: Generalized weakness. Endocrine: Denies shakes or sweats. Oncology: Denies cancers. Dermatologic: Denies rash, itching, pruritus. ALLERGY/immunology: Denies sneezes, rashes. Past Medical History Past Medical History: Atrial Fibrillation, Chest Pain / Angina, Heart Failure, GERD/Reflux, Hearing Disorder / Deafness, Hyperlipidemia, Hypertension, Prostate Disorder Additional Past Medical History / Comment(s): Coronary artery disease, previous myocardial infarction, chronic atrial fibrillation, COPD, congestion heart failure with a previous ejection fraction 45-50% in addition to moderate to severe aortic valve sclerosis, mild AF, mild AR, moderate concentric left ventricular hypertrophy/hypertensive heart disease, diabetes mellitus, dementia , obstructive sleep apnea, hypothyroidism, BPH, osteoarthritis, previous bilateral knee replacement, previous bilateral shoulder replacement, pt does'nt have his hearing aids.communicated best with him by writting out questions, 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 History of Any Multi-Drug Resistant Organisms: None Reported Year Discovered:: 05/18/18 MDRO Source:: [facility] Past Surgical History: Joint Replacement Additional Past Surgical History / Comment(s): bilateral knee replacements, bilateral rotator cuff repairs, left BKA -pt stated due to infection Past Anesthesia/Blood Transfusion Reactions: No Reported Reaction Smoking Status: Former smoker - Past Family History Father History Unknown: Yes Mother History Unknown: Yes Medications and Allergies Home Medications Medication Instructions Recorded Confirmed Type Warfarin Sodium [Coumadin] 2.5 mg PO DAILY 11/30/16 07/21/18 History Atorvastatin [Lipitor] 20 mg PO HS@2100 01/19/17 07/21/18 History Furosemide [Lasix] 40 mg PO DAILY@0600 01/19/17 07/21/18 History Metoprolol Tartrate [Lopressor] 50 mg PO BID@0900,2100 01/19/17 07/21/18 History Aspirin 81 mg PO DAILY 11/05/17 07/21/18 History Sennosides [Senna] 8.6 mg PO BID 11/05/17 07/21/18 History Omeprazole 40 mg PO DAILY #14 capsule.dr 06/11/18 07/21/18 Rx Levothyroxine Sodium 25 mcg PO DAILY 07/21/18 07/21/18 History Lisinopril [Zestril] 20 mg PO DAILY 07/21/18 07/21/18 History Sertraline HCl [Zoloft] 50 mg PO HS 07/21/18 07/21/18 History Sucralfate [Carafate] 1 gm PO QID 07/21/18 07/21/18 History Allergies Allergy/AdvReac Type Severity Reaction Status Date / Time No Known Allergies Allergy Verified 07/21/18 12:13 Physical Exam Vitals: Vital Signs Temp Pulse Resp BP BP Pulse Ox 07/27/18 12:00 96.3 F L 74 16 143/91 93 L 07/27/18 08:00 97 F L 65 18 146/75 95 07/27/18 07:30 97.5 F L 102 H 18 156/80 93 L 07/27/18 04:00 98.2 F 90 18 147/80 95 07/27/18 03:50 18 91 L 07/27/18 00:00 97.4 F L 69 18 136/82 93 L 07/26/18 20:00 97.5 F L 70 18 146/71 93 L 07/26/18 16:00 18 07/26/18 15:55 98.5 F 88 18 154/77 94 L Intake and Output 07/27/18 07/27/18 07/27/18 06:59 14:59 22:59 Intake Total 800 640 Output Total 200 Balance 600 640 Intake: IV 800 Dextrose 5%-0.9% NaCl 1, 750 000 ml @ 75 mls/hr IV . [id number] FOSTER Rx#:[id number] Piperacillin-Tazobactam 3 50 .375 gm In Dextrose/Water 1 50ml.bag @ 12.5 mls/hr IVPB Q8HR FOSTER Rx#: [id number] Oral 640 Output: Urine 200 Other: Voiding Method Indwelling Catheter Incontinent Weight 83.7 kg Skin: Good color, texture, turgor. General: Medium build and comfortable appearance. Head: Normocephalic, atraumatic. Eyes: Symmetric. Pupils equal round. Ears: Symmetric. Hearing within normal limits. Mouth: Clear. Neck: Supple. Carotid without bruit. Cardiac: Regular rate and rhythm. Lungs: Clear anteriorly and posteriorly. Abdomen: Soft active nontender. Extremities: Normal tone. Old well-healed left BKA. Neurological: Mental status: Alert, cooperative, pleasant. Cranial nerves: Symmetric facial tone and trapezius. Motor: Can elevate the arms off the bed. Legs poor.. Sensation: Intact throughout. DTRs: Symmetric and equal throughout. Mobility: Requires physical assistance for bed mobility. Results CBC & Chem 7: 07/27/18 07:40 07/27/18 07:40 Labs: Abnormal Lab Results - Last 24 Hours (Table) 07/26/18 07/27/18 07/27/18 Range/Units 18:21 00:47 06:53 WBC (3.8-10.6) k/uL RBC (4.30-5.90) m/uL Hgb (13.0-17.5) gm/dL Hct (39.0-53.0) % MCHC (31.0-37.0) g/dL RDW (11.5-15.5) % Plt Count (150-450) k/uL Neutrophils # (1.3-7.7) k/uL PT (9.0-12.0) sec INR (<1.2) Chloride (98-107) mmol/L BUN (9-20) mg/dL Creatinine (0.66-1.25) mg/dL Glucose (74-99) mg/dL POC Glucose (mg/dL) 119 H 136 H 177 H (75-99) mg/dL Calcium (8.4-10.2) mg/dL Total Protein (6.3-8.2) g/dL Albumin (3.5-5.0) g/dL 07/27/18 07/27/18 07/27/18 Range/Units 07:40 07:40 07:40 WBC 11.4 H (3.8-10.6) k/uL RBC 4.19 L (4.30-5.90) m/uL Hgb 11.3 L (13.0-17.5) gm/dL Hct 37.4 L (39.0-53.0) % MCHC 30.3 L (31.0-37.0) g/dL RDW 15.7 H (11.5-15.5) % Plt Count 141 L (150-450) k/uL Neutrophils # 9.3 H (1.3-7.7) k/uL PT 12.3 H (9.0-12.0) sec INR 1.3 H (<1.2) Chloride 110 H (98-107) mmol/L BUN 29 H (9-20) mg/dL Creatinine 1.72 H (0.66-1.25) mg/dL Glucose 161 H (74-99) mg/dL POC Glucose (mg/dL) (75-99) mg/dL Calcium 8.1 L (8.4-10.2) mg/dL Total Protein 5.9 L (6.3-8.2) g/dL Albumin 2.6 L (3.5-5.0) g/dL 07/27/18 Range/Units 11:55 WBC (3.8-10.6) k/uL RBC (4.30-5.90) m/uL Hgb (13.0-17.5) gm/dL Hct (39.0-53.0) % MCHC (31.0-37.0) g/dL RDW (11.5-15.5) % Plt Count (150-450) k/uL Neutrophils # (1.3-7.7) k/uL PT (9.0-12.0) sec INR (<1.2) Chloride (98-107) mmol/L BUN (9-20) mg/dL Creatinine (0.66-1.25) mg/dL Glucose (74-99) mg/dL POC Glucose (mg/dL) 132 H (75-99) mg/dL Calcium (8.4-10.2) mg/dL Total Protein (6.3-8.2) g/dL Albumin (3.5-5.0) g/dL Microbiology - Last 24 Hours (Table) 07/21/18 13:33 Blood Culture - Preliminary Blood No Growth after 120 hours Assessment and Plan (1) Abdominal pain Current Visit: Yes Status: Acute Code(s): R10.9 - UNSPECIFIED ABDOMINAL PAIN SNOMED Code(s): 66773749 (2) Enterocolitis Current Visit: Yes Status: Acute Code(s): K52.9 - NONINFECTIVE GASTROENTERITIS AND COLITIS, UNSPECIFIED SNOMED Code(s): 85365203 Plan: Impression: 1. Medical debility. 2. Abdominal pain with the ischemic colitis. 3. CHF. 4. Chronic atrial fibrillation. Comments and plan: At this time PT and OT are ongoing. Patient appears to have a determined attitude. Of course he wants nothing to do with rehab facility, as well.
[2018-07-27 18:11] LABS: Glucose,Whole Blood 78 mg/dL (75-99)
[2018-07-27 19:12] LABS: Hemoglobin A1C 5.9 % (4.0-6.0)
[2018-07-27] MEDS: SERTRALINE 50 MG TAB PO SCH (19:52)
--- NOTE | 2018-07-27 22:51 | PN ---
PROGRESS NOTE DATE OF SERVICE: 07/27/2018 REASON FOR FOLLOWUP: 1. Ischemic colitis. 2. Right lateral ankle wound. INTERVAL HISTORY: The patient is currently afebrile. He has been breathing comfortably. Patient denies significant chest pain or cough. Abdominal pain has improved. No nausea, vomiting or any diarrhea. PHYSICAL EXAMINATION: Blood pressure is 170/79 with a pulse of 83, temperature 97.8. He is 94% on 2 L nasal cannula. General description is an elderly male lying in bed in no distress. RESPIRATORY SYSTEM: Unlabored breathing. Clear to auscultation anteriorly. HEART: S1, S2. Regular rate and rhythm. ABDOMEN: Soft. No tenderness. Right lateral ankle wound is currently dressed up. No obvious drainage on the dressing. LABS: Hemoglobin is 11.3 with a white count of 11.4, BUN of 29, creatinine 1.72. Blood culture has been negative. DIAGNOSTIC IMPRESSION AND PLAN: 1. Patient admitted to hospital with abdominal pain, elevated lactic acid, with evidence of sepsis and possible ischemic colitis that seems to have responded medically with overall currently on Zosyn. The patient will receive a short course of oral Cipro and Flagyl on discharge. 2. Right lateral ankle wound. No cellulitis. Local wound care with Aquacel Silver dressing. Continue with supportive care. MMODL / IJN: [id number] /
[2018-07-28 00:09] LABS: Glucose,Whole Blood 124 mg/dL (75-99)
[2018-07-28] MEDS: INSULIN ASPART 100 UNIT/ML 1 ML 10 ML VIAL SQ SCH ×5 (01:03→22:05)
[2018-07-28 06:06] LABS: Glucose,Whole Blood 106 mg/dL (75-99)
[2018-07-28] MEDS: LEVOTHYROXINE 25 MCG TAB PO SCH (06:19)
[2018-07-28 07:07] LABS: INR 1.2 (<1.2); Prothrombin Time 11.9 sec (9.0-12.0)
[2018-07-28 07:14] LABS: Basophils % (A) 0 %; Eosinophils # (A) 0.3 k/uL (0-0.7); Eosinophils % (A) 3 %; HCT 35.9 % (39.0-53.0); HGB 10.9 gm/dL (13.0-17.5); Hypochromasia Moderate; Lymphocytes # (A) 1.2 k/uL (1.0-4.8); Lymphocytes % (A) 14 %; MCH 27.1 pg (25.0-35.0); MCHC 30.5 g/dL (31.0-37.0); MCV 88.7 fL (80.0-100.0); Mean Platelet Volume 8.3; Monocytes # (A) 0.7 k/uL (0-1.0); Monocytes % (A) 8 %; Neutrophils # (A) 6.6 k/uL (1.3-7.7); Neutrophils % (A) 74 %; Platelet Count 156 k/uL (150-450); RBC 4.05 m/uL (4.30-5.90); RDW 15.7 % (11.5-15.5); WBC 8.9 k/uL (3.8-10.6)
[2018-07-28 07:35] LABS: Albumin 2.5 g/dL (3.5-5.0); Calcium 8.2 mg/dL (8.4-10.2); Potassium 4.3 mmol/L (3.5-5.1); Total Bilirubin 0.7 mg/dL (0.2-1.3); Total Protein 5.7 g/dL (6.3-8.2)
[2018-07-28] MEDS: DEXTROSE 5%-0.9% NACL 1,000 ML IV SCH ×2 (07:41→20:05)
[2018-07-28] MEDS: METOPROLOL TARTRATE 50 MG TAB PO SCH ×2 (07:41→20:06)
[2018-07-28] MEDS: HEPARIN SODIUM,PORCINE 5,000 UNIT/ML 1 ML VIAL SQ SCH (07:41)
[2018-07-28] MEDS: PANTOPRAZOLE 40 MG/10 ML VIAL IVP SCH (07:42)
[2018-07-28] MEDS: PIPERACILLIN-TAZOBACTAM 3.375 GM in DEXTROSE/WATER 1 50ML.BAG IVPB SCH (07:46)
--- NOTE | 2018-07-28 11:39 | P.PN ---
Subjective Progress Note Date: 07/28/18 This is an 82-year-old male patient of Dr. kelly. Patient presented to the emergency room with complaints of abdominal pain and diarrhea patient also states he's been having episodes of emesis. Patient has a known past medical history history of atrial fibrillation which she takes Coumadin. Chest pain, heart failure GERD, hyperlipidemia, hypertension and prostate disorder. Patient is extremely hard of hearing and therefore a poor historian. CT of abdomen completed in emergency room showing a small bilateral pleural effusion, borderline cardiomegaly, mild diffuse tenderness Scaccia type II. Correlate for fluid overload state. Partially visualized rounded area in the right mid to lower lung on the first slice this could represent a mass or pseudotumor due to fluid within the minor seizure. Consider initial assessment chest x-ray. Prominent fluid with a mildly thickened mid to lower abdominal small bowel loops additional liquid stool throughout the colon. Correlate for enteritis or enterocolitis. Prostatomegaly. Chest x-ray completed showing masslike areas of consolidation the right greater than left midlung. This was present to some extent on the 11/07/2017 exam making loculated pleural fluid more likely than underlying neoplasm. CT completed showing atrial fibrillation with rapid ventricular response with premature ventricular or aberrantly conducted complexes. Patient was started on Cardizem drip. Initial WBC 15.2. Lactic acid 6.4. Lactic acid increasing to 10.4. Patient received 4 L of IV fluid per critical care team. Repeat lactic acid 5.7. AST 318 ALT 263 and alkaline phosphatase 152. INR is 3.1 patient admitted to the intensive care unit and Dr. Calzada per critical care consulted. Dr. Whaley per GI service is consulted. Dr. Shahid per surgical service is consulted. Per nursing staff patient did have episodes of approximately 150 mL of bloody stool this a.m. Discussed case at bedside with Dr. Calzada per critical care. Concerns for ischemic colitis. Orders placed to reverse Coumadin with vitamin K. Bicarb gtt initiated per critical care. Abdominal x-ray ordered per critical care. Surgical services paged per nursing staff. On 07/23/2018 patient was seen and examined in ICU he is alert and oriented 3 in no apparent distress, he has NG tube in, he is complaining of abdominal pain , he had episodes of bloody diarrhea are clear, he denies any vomiting, he denies any chest pain or shortness of breath no cough and no urinary symptoms. On 07/24/2018 patient was seen and examined in ICU he is more drowsy today, but awake easily and respond to questions abdominal pain has improved, he had greenish color bowel movement without any bleeding, he denies any vomiting there is no fever or chills no headache no chest pain no shortness of breath no cough and no urinary symptoms. 07/25/2018 patient remains in the intensive care unit. Patient is sleepy but arousable. Per nursing staff patient has not had any blood in stool. Patient denies any vomiting or nausea. Denies any urinary symptoms On 07/26/2018 patient has been out of the intensive care unit to [facility]. Patient is sleepy but arousable. Patient is alert but extremely hard of hearing. At this time patient denies chest pain or shortness of breath. Denies any nausea vomiting or diarrhea. Denies any urinary burning or frequency. On 07/27/2018 patient is currently resting comfortably. Patient is alert and oriented but extremely hard of hearing. This point patient denies chest pain or shortness breath. Patient denies any nausea vomiting or diarrhea. Patient denies urinary burning or frequency On 07/28/2018 patient is currently resting comfortably. Discussed case with case management. Patient is alert and oriented 3. Patient is adamant that he is going to return home and refusing any rehab at this point. Case management to discuss with son. At this point patient denies chest pain or shortness of breath. Patient denies any urinary burning or frequency patient denies nausea vomiting or diarrhea. Per nursing staff patient has not had any blood in bowel movements. Hemoglobin stable Coumadin will be resumed. Objective - Vital Signs Vital signs: Vital Signs Temp 97.3 F L 07/28/18 07:55 Pulse 63 07/28/18 08:00 Resp 18 07/28/18 08:00 BP 157/94 07/28/18 07:55 Pulse Ox 93 L 07/28/18 07:55 Intake & Output 07/27/18 07/28/18 07/28/18 18:59 06:59 18:59 Intake Total 640 Output Total 1 Balance 640 -1 Weight 82.5 kg Intake: Oral 640 Output: Stool 1 Other: Voiding Method Incontinent Incontinent Incontinent # Voids 2 - Exam Head normocephalic Neck supple Lungs clear to auscultation bilaterally no wheezing or crackles Heart regular rate and rhythm S1-S2, no rub or gallop Abdomen is soft nontender nondistended positive bowel sounds no hepatosplenomegaly Extremities no edema Neuro alert and orientated to 3 - Labs CBC & Chem 7: 18 05:59 07/28/18 05:59 Labs: Abnormal Lab Results - Last 24 Hours (Table) 07/27/18 07/28/18 07/28/18 Range/Units 11:55 00:07 05:59 RBC 4.05 L (4.30-5.90) m/uL Hgb 10.9 L (13.0-17.5) gm/dL Hct 35.9 L (39.0-53.0) % MCHC 30.5 L (31.0-37.0) g/dL RDW 15.7 H (11.5-15.5) % INR (<1.2) Chloride (98-107) mmol/L BUN (9-20) mg/dL Creatinine (0.66-1.25) mg/dL POC Glucose (mg/dL) 132 H 124 H (75-99) mg/dL Calcium (8.4-10.2) mg/dL Total Protein (6.3-8.2) g/dL Albumin (3.5-5.0) g/dL 07/28/18 07/28/18 07/28/18 Range/Units 05:59 05:59 06:04 RBC (4.30-5.90) m/uL Hgb (13.0-17.5) gm/dL Hct (39.0-53.0) % MCHC (31.0-37.0) g/dL RDW (11.5-15.5) % INR 1.2 H (<1.2) Chloride 110 H (98-107) mmol/L BUN 29 H (9-20) mg/dL Creatinine 1.70 H (0.66-1.25) mg/dL POC Glucose (mg/dL) 106 H (75-99) mg/dL Calcium 8.2 L (8.4-10.2) mg/dL Total Protein 5.7 L (6.3-8.2) g/dL Albumin 2.5 L (3.5-5.0) g/dL Microbiology - Last 24 Hours (Table) 07/21/18 13:33 Blood Culture - Final Blood No Growth after 144 hours Assessment and Plan Assessment: 1. lower abdominal pain, acute, associated with lactic acidosis. CT abdomen completed showing prominent fluid within mildly thickened mid to lower abdominal small bowel loops been additional liquid stool throughout the colon. Correlate for enteritis and enterocolitis. Lactic acid elevated as high as 10.4. Patient did receive 4 L of IV fluid per critical care. Repeat lactic 5.6. Per nursing staff patient did have episode of approximately 150 mL of bloody stool this a.m.. GI and surgical services consulted. Abdominal x-ray completed per critical care showing persistent overall nonobstructive bowel gas pattern. Bicarb drip has been ordered per critical care vitamin K order to reverse Coumadin. Patient currently on Zosyn for antibiotic. Per surgical services at this time continue IV antibiotics and bowel rest. Patient currently tolerating regular diet. GI services have patient. Patient to follow -up outpatient to 3 weeks discussion of possible outpatient EGD. Patient remains on IV Zosyn. Per infectious disease patient will receive a short course of oral Cipro and Flagyl upon discharge. 2. abnormal LFTs with dilated gallbladder. Abdominal ultrasound completed showing large gallbladder mild wall thickening and pericholecystic fluid consistent with cholecystitis. No gallstones identified no dilated ducts. Dr. Shahid for surgical service is consulted. Liver enzymes improving. Continue monitor closely 3. diarrhea with lactic acidosis. C. diff negative 4. Sepsis related to possible ischemic colitis. Initial lactic acid 7.2. Lactic acid increasing to as high as 10.4. Patient received 4 L of IV fluid per critical care. This a.m. lactic acid 5.7. Sepsis protocol initiated. Currently on Zosyn for antibiotic. Repeat lactic acid 1.6. White blood cell 11.4. Per infectious disease patient will require short course of oral antibiotics on discharge 5. history of coronary artery disease 6. congestion heart failure with ejection fraction of 45-50% 7. chronic atrial fibrillation maintained on long-term medical condition with warfarin with therapeutic PT/INR. Coumadin on hold due to GI bleed. INR 3.1. Vit K has been ordered per critical care. Cardiology services consulted. No active bleeding at this time. Coumadin will be resumed 8. 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 History of dementia 10. History of Hearing 11. 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 History of BPH 13. Debility and impaired performance and functional status second above- mentioned comorbidities 14. pseudotumor within the right lung , patient has fluid within the right fissure that has been visualized on previous CAT scans and chest x-rays. 15. History of essential hypertension. 16. Per nursing staff concerns for aspiration. NG tube was placed to LIS. X- ray obtained showing overall stable findings, cardiomegaly with central vascular congestion and bilateral perihilar edema and/or infiltrate is small to tiny right greater than left pleural effusions are redemonstrated. Dr. Calzada following for pulmonary and critical care. Patient currently on Zosyn 17. Atrial fibrillation with rapid ventricular response. Patient does have history of A. fib and was on Coumadin.. Patient started on Cardizem drip. Due to possible surgical intervention. Coumadin has been reversed with vitamin K per critical care team. Heart rate currently in the 70s and 80s. No active bleeding reported per nursing staff. Hemoglobin stable. Coumadin will be resumed. 18. Low urine output. Patient was given 4 L of fluid throughout night. Critical care team following. Resolved 19. Acute kidney injury. patient did received fluid resuscitation per sepsis protocol per critical care. Continue to monitor closely. Creatinine improving to 1.70 and bun 29. DVT prophylaxis SCDs and heparin and GI prophylaxis Protonix Social work has been consulted for initiation of discharge planning. Per case management patient is refusing any rehab. Patient remains 2 person assist. Patient does live alone with minimal assistance. Case management trying to get a hold of patient's son. Dr. Barton consulted for possible inpatient rehab. Patient refusing any type of rehab at this time. clinical study manager following. Patient is alert and oriented son updated anticipate discharge in the next 24- 48 hours. I performed an examination of the patient and discussed their management with the Nurse Practitioner. I have reviewed the Nurse Practitioner's notes and agree with the documented findings and plan of care
[2018-07-28 12:46] LABS: Glucose,Whole Blood 134 mg/dL (75-99)
[2018-07-28] MEDS: ONDANSETRON 4 MG/2 ML VIAL IVP PRN (13:39)
--- NOTE | 2018-07-28 16:51 | PN ---
PROGRESS NOTE DATE OF SERVICE: 07/28/2018 REASON FOR FOLLOWUP: 1. Possible ischemic colitis. 2. Right lateral ankle wound. INTERVAL HISTORY: The patient is currently afebrile. He is breathing comfortably. Denies having any chest pain or shortness of breath or cough. Abdominal pain has improved. No nausea or vomiting; however, he did have diarrhea 2 episodes yesterday and one today, per the . Denies pain to the right lateral ankle wound area. PHYSICAL EXAMINATION: Blood pressure 98/64 with a pulse of 87, temperature 97.6. He is 96% on 2 L nasal cannula. General description is an elderly male lying in bed in no distress. RESPIRATORY SYSTEM: Unlabored breathing. Clear to auscultation anteriorly. HEART: S1, S2. Regular rate and rhythm. ABDOMEN: Soft. Mildly distended. No guarding or rigidity. Right lateral ankle wound is currently dressed up drainage on the dressing. LABS: Hemoglobin is 10.9, white count 8.9, BUN of 29, creatinine of 1.70. DIAGNOSTIC IMPRESSION AND PLAN: Patient admitted to hospital with concern about possible ischemic colitis. The patient has been on Zosyn; still has some diarrhea, though. Will switch over antibiotic therapy to Rocephin and Flagyl. That can be transitioned to oral and Flagyl for a short course on discharge. Continue to monitor his clinical course closely. Continue with supportive care. MMSHYANNEL / IJN: [id number] /
[2018-07-28] MEDS: cefTRIAXone 2,000 MG in SODIUM CHLORIDE 0.9% 100 ML IVPB SCH (16:53)
[2018-07-28] MEDS: metroNIDAZOLE 500 MG TAB PO SCH ×2 (16:53→20:06)
[2018-07-28] MEDS: WARFARIN 2.5 MG TAB PO SCH (16:55)
[2018-07-28 17:02] LABS: Glucose,Whole Blood 147 mg/dL (75-99)
[2018-07-28] MEDS: SERTRALINE 50 MG TAB PO SCH (20:06)
[2018-07-28 20:56] LABS: Glucose,Whole Blood 196 mg/dL (75-99)
[2018-07-29] MEDS ORDERED: hydrALAZINE HCL 20 MG/ML 1 ML VIAL IVP PRN (05:48)
[2018-07-29 05:54] LABS: Glucose,Whole Blood 121 mg/dL (75-99)
[2018-07-29] MEDS: INSULIN ASPART 100 UNIT/ML 1 ML 10 ML VIAL SQ SCH ×4 (06:19→21:10)
[2018-07-29] MEDS: LEVOTHYROXINE 25 MCG TAB PO SCH (06:22)
[2018-07-29 09:09] LABS: Albumin 2.6 g/dL (3.5-5.0); Potassium 4.3 mmol/L (3.5-5.1); Total Bilirubin 0.4 mg/dL (0.2-1.3); Total Protein 5.9 g/dL (6.3-8.2)
[2018-07-29 09:16] LABS: Basophils % (A) 0 %; Eosinophils # (A) 0.1 k/uL (0-0.7); Eosinophils % (A) 1 %; HCT 35.9 % (39.0-53.0); Hypochromasia Moderate; Lymphocytes # (A) 0.8 k/uL (1.0-4.8); Lymphocytes % (A) 10 %; MCH 27.3 pg (25.0-35.0); MCHC 30.7 g/dL (31.0-37.0); MCV 89.1 fL (80.0-100.0); Mean Platelet Volume 8.2; Monocytes # (A) 0.6 k/uL (0-1.0); Monocytes % (A) 7 %; Neutrophils # (A) 6.7 k/uL (1.3-7.7); Neutrophils % (A) 81 %; Platelet Count 150 k/uL (150-450); RBC 4.03 m/uL (4.30-5.90); RDW 15.8 % (11.5-15.5); WBC 8.3 k/uL (3.8-10.6)
[2018-07-29] MEDS: DEXTROSE 5%-0.9% NACL 1,000 ML IV SCH (09:25)
[2018-07-29] MEDS: metroNIDAZOLE 500 MG TAB PO SCH ×3 (09:28→21:10)
[2018-07-29] MEDS: PANTOPRAZOLE 40 MG/10 ML VIAL IVP SCH (09:29)
[2018-07-29] MEDS: METOPROLOL TARTRATE 50 MG TAB PO SCH ×2 (09:29→21:10)
[2018-07-29] MEDS: cefTRIAXone 2,000 MG in SODIUM CHLORIDE 0.9% 100 ML IVPB SCH (09:55)
[2018-07-29 10:16] LABS: INR 1.5 (<1.2); Prothrombin Time 14.1 sec (9.0-12.0)
[2018-07-29 11:26] LABS: Glucose,Whole Blood 103 mg/dL (75-99)
--- NOTE | 2018-07-29 12:24 | P.PN ---
Subjective Progress Note Date: 07/29/18 This is an 82-year-old male patient of Dr. kelly. Patient presented to the emergency room with complaints of abdominal pain and diarrhea patient also states he's been having episodes of emesis. Patient has a known past medical history history of atrial fibrillation which she takes Coumadin. Chest pain, heart failure GERD, hyperlipidemia, hypertension and prostate disorder. Patient is extremely hard of hearing and therefore a poor historian. CT of abdomen completed in emergency room showing a small bilateral pleural effusion, borderline cardiomegaly, mild diffuse tenderness Scaccia type II. Correlate for fluid overload state. Partially visualized rounded area in the right mid to lower lung on the first slice this could represent a mass or pseudotumor due to fluid within the minor seizure. Consider initial assessment chest x-ray. Prominent fluid with a mildly thickened mid to lower abdominal small bowel loops additional liquid stool throughout the colon. Correlate for enteritis or enterocolitis. Prostatomegaly. Chest x-ray completed showing masslike areas of consolidation the right greater than left midlung. This was present to some extent on the 11/07/2017 exam making loculated pleural fluid more likely than underlying neoplasm. CT completed showing atrial fibrillation with rapid ventricular response with premature ventricular or aberrantly conducted complexes. Patient was started on Cardizem drip. Initial WBC 15.2. Lactic acid 6.4. Lactic acid increasing to 10.4. Patient received 4 L of IV fluid per critical care team. Repeat lactic acid 5.7. AST 318 ALT 263 and alkaline phosphatase 152. INR is 3.1 patient admitted to the intensive care unit and Dr. Calzada per critical care consulted. Dr. Whaley per GI service is consulted. Dr. Shahid per surgical service is consulted. Per nursing staff patient did have episodes of approximately 150 mL of bloody stool this a.m. Discussed case at bedside with Dr. Calzada per critical care. Concerns for ischemic colitis. Orders placed to reverse Coumadin with vitamin K. Bicarb gtt initiated per critical care. Abdominal x-ray ordered per critical care. Surgical services paged per nursing staff. On 07/23/2018 patient was seen and examined in ICU he is alert and oriented 3 in no apparent distress, he has NG tube in, he is complaining of abdominal pain , he had episodes of bloody diarrhea are clear, he denies any vomiting, he denies any chest pain or shortness of breath no cough and no urinary symptoms. On 07/24/2018 patient was seen and examined in ICU he is more drowsy today, but awake easily and respond to questions abdominal pain has improved, he had greenish color bowel movement without any bleeding, he denies any vomiting there is no fever or chills no headache no chest pain no shortness of breath no cough and no urinary symptoms. 07/25/2018 patient remains in the intensive care unit. Patient is sleepy but arousable. Per nursing staff patient has not had any blood in stool. Patient denies any vomiting or nausea. Denies any urinary symptoms On 07/26/2018 patient has been out of the intensive care unit to [facility]. Patient is sleepy but arousable. Patient is alert but extremely hard of hearing. At this time patient denies chest pain or shortness of breath. Denies any nausea vomiting or diarrhea. Denies any urinary burning or frequency. On 07/27/2018 patient is currently resting comfortably. Patient is alert and oriented but extremely hard of hearing. This point patient denies chest pain or shortness breath. Patient denies any nausea vomiting or diarrhea. Patient denies urinary burning or frequency On 07/28/2018 patient is currently resting comfortably. Discussed case with case management. Patient is alert and oriented 3. Patient is adamant that he is going to return home and refusing any rehab at this point. Case management to discuss with son. At this point patient denies chest pain or shortness of breath. Patient denies any urinary burning or frequency patient denies nausea vomiting or diarrhea. Per nursing staff patient has not had any blood in bowel movements. Hemoglobin stable Coumadin will be resumed. On 11/27/2017 patient is resting comfortably in bed. Patient has been up in chair with assistance. Patient had elevated blood pressures this AM. Hydralazine by mouth has been added. At this time patient denies chest pain or shortness breath. Denies diarrhea. Patient denies any urinary burning. Objective - Vital Signs Vital signs: Vital Signs Temp 96.8 F L 07/29/18 08:00 Pulse 74 07/29/18 11:56 Resp 18 07/29/18 11:56 BP 139/72 07/29/18 11:56 Pulse Ox 93 L 07/29/18 11:56 Intake & Output 07/28/18 07/29/18 07/29/18 18:59 06:59 18:59 Intake Total 240 240 Output Total 204 1 Balance 36 -1 240 Weight 82.5 kg 83.9 kg Intake: Oral 240 240 Output: Urine 200 Stool 4 Urine/Stool Mix 1 Other: Voiding Method Incontinent Incontinent Incontinent # Voids 2 1 # Bowel Movements 1 - Exam Head normocephalic Neck supple Lungs clear to auscultation bilaterally no wheezing or crackles Heart regular rate and rhythm S1-S2, no rub or gallop Abdomen is soft nontender nondistended positive bowel sounds no hepatosplenomegaly Extremities no edema Neuro alert and orientated to 3 - Labs CBC & Chem 7: 07/29/18 08:40 07/29/18 08:40 Labs: Abnormal Lab Results - Last 24 Hours (Table) 07/28/18 07/28/18 07/28/18 Range/Units 12:34 16:59 20:53 RBC (4.30-5.90) m/uL Hgb (13.0-17.5) gm/dL Hct (39.0-53.0) % MCHC (31.0-37.0) g/dL RDW (11.5-15.5) % Lymphocytes # (1.0-4.8) k/uL PT (9.0-12.0) sec INR (<1.2) Chloride (98-107) mmol/L BUN (9-20) mg/dL Creatinine (0.66-1.25) mg/dL Glucose (74-99) mg/dL POC Glucose (mg/dL) 134 H 147 H 196 H (75-99) mg/dL Calcium (8.4-10.2) mg/dL Total Protein (6.3-8.2) g/dL Albumin (3.5-5.0) g/dL 07/29/18 07/29/18 07/29/18 Range/Units 05:53 08:40 08:40 RBC 4.03 L (4.30-5.90) m/uL Hgb 11.0 L (13.0-17.5) gm/dL Hct 35.9 L (39.0-53.0) % MCHC 30.7 L (31.0-37.0) g/dL RDW 15.8 H (11.5-15.5) % Lymphocytes # 0.8 L (1.0-4.8) k/uL PT (9.0-12.0) sec INR (<1.2) Chloride 110 H (98-107) mmol/L BUN 29 H (9-20) mg/dL Creatinine 1.76 H (0.66-1.25) mg/dL Glucose 106 H (74-99) mg/dL POC Glucose (mg/dL) 121 H (75-99) mg/dL Calcium 8.0 L (8.4-10.2) mg/dL Total Protein 5.9 L (6.3-8.2) g/dL Albumin 2.6 L (3.5-5.0) g/dL 07/29/18 07/29/18 Range/Units 09:40 11:25 RBC (4.30-5.90) m/uL Hgb (13.0-17.5) gm/dL Hct (39.0-53.0) % MCHC (31.0-37.0) g/dL RDW (11.5-15.5) % Lymphocytes # (1.0-4.8) k/uL PT 14.1 H (9.0-12.0) sec INR 1.5 H (<1.2) Chloride (98-107) mmol/L BUN (9-20) mg/dL Creatinine (0.66-1.25) mg/dL Glucose (74-99) mg/dL POC Glucose (mg/dL) 103 H (75-99) mg/dL Calcium (8.4-10.2) mg/dL Total Protein (6.3-8.2) g/dL Albumin (3.5-5.0) g/dL Assessment and Plan Assessment: 1. lower abdominal pain, acute, associated with lactic acidosis. CT abdomen completed showing prominent fluid within mildly thickened mid to lower abdominal small bowel loops been additional liquid stool throughout the colon. Correlate for enteritis and enterocolitis. Lactic acid elevated as high as 10.4. Patient did receive 4 L of IV fluid per critical care. Repeat lactic 5.6. Per nursing staff patient did have episode of approximately 150 mL of bloody stool this a.m.. GI and surgical services consulted. Abdominal x-ray completed per critical care showing persistent overall nonobstructive bowel gas pattern. Bicarb drip has been ordered per critical care vitamin K order to reverse Coumadin. Patient currently on Zosyn for antibiotic. Per surgical services at this time continue IV antibiotics and bowel rest. Patient currently tolerating regular diet. GI services have patient. Patient to follow -up outpatient to 3 weeks discussion of possible outpatient EGD. Patient remains on IV Zosyn. Per infectious disease patient will receive a short course of oral Cipro and Flagyl upon discharge. 2. abnormal LFTs with dilated gallbladder. Abdominal ultrasound completed showing large gallbladder mild wall thickening and pericholecystic fluid consistent with cholecystitis. No gallstones identified no dilated ducts. Dr. Shahid for surgical service is consulted. Liver enzymes improving. Continue monitor closely 3. diarrhea with lactic acidosis. C. diff negative 4. Sepsis related to possible ischemic colitis. Initial lactic acid 7.2. Lactic acid increasing to as high as 10.4. Patient received 4 L of IV fluid per critical care. This a.m. lactic acid 5.7. Sepsis protocol initiated. Currently on Zosyn for antibiotic. Repeat lactic acid 1.6. White blood cell 11.4. Per infectious disease patient will require short course of oral antibiotics on discharge 5. history of coronary artery disease 6. congestion heart failure with ejection fraction of 45-50% 7. chronic atrial fibrillation maintained on long-term medical condition with warfarin with therapeutic PT/INR. Coumadin on hold due to GI bleed. INR 3.1. Vit K has been ordered per critical care. Cardiology services consulted. No active bleeding at this time. Coumadin will be resumed 8. 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 History of dementia 10. History of Hearing 11. 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 History of BPH 13. Debility and impaired performance and functional status second above- mentioned comorbidities 14. pseudotumor within the right lung , patient has fluid within the right fissure that has been visualized on previous CAT scans and chest x-rays. 15. History of essential hypertension. patient had episode of blood pressure in the 200s this a.m. Hydralazine by mouth has been added. 16. Per nursing staff concerns for aspiration. NG tube was placed to LIS. X- ray obtained showing overall stable findings, cardiomegaly with central vascular congestion and bilateral perihilar edema and/or infiltrate is small to tiny right greater than left pleural effusions are redemonstrated. Dr. Calzada following for pulmonary and critical care. Patient currently on Zosyn 17. Atrial fibrillation with rapid ventricular response. Patient does have history of A. fib and was on Coumadin.. Patient started on Cardizem drip. Due to possible surgical intervention. Coumadin has been reversed with vitamin K per critical care team. Heart rate currently in the 70s and 80s. No active bleeding reported per nursing staff. Hemoglobin stable. Coumadin will be resumed. 18. Low urine output. Patient was given 4 L of fluid throughout night. Critical care team following. Resolved 19. Acute kidney injury. patient did received fluid resuscitation per sepsis protocol per critical care. Continue to monitor closely. Creatinine improving to 1.76 and bun 29. DVT prophylaxis heparin and GI prophylaxis Protonix Social work has been consulted for initiation of discharge planning. Per case management patient is refusing any rehab. Patient remains 2 person assist. Patient does live alone with minimal assistance. Case management trying to get a hold of patient's son. Dr. Barton consulted for possible inpatient rehab. Patient refusing any type of rehab at this time. manager media following. Patient to continue working with PT and OT. Patient will likely stay in hospital through the weekend possible discharge Wednesday. I performed an examination of the patient and discussed their management with the Nurse Practitioner. I have reviewed the Nurse Practitioner's notes and agree with the documented findings and plan of care
[2018-07-29 17:22] LABS: Glucose,Whole Blood 83 mg/dL (75-99)
[2018-07-29] MEDS: WARFARIN 2.5 MG TAB PO SCH (18:46)
[2018-07-29] MEDS: HEPARIN SODIUM,PORCINE 5,000 UNIT/ML 1 ML VIAL SQ SCH (21:10)
[2018-07-29] MEDS: hydrALAZINE HCL 25 MG TAB PO SCH (21:10)
[2018-07-29] MEDS: SERTRALINE 50 MG TAB PO SCH (21:10)
[2018-07-29 21:29] LABS: Glucose,Whole Blood 112 mg/dL (75-99)
--- NOTE | 2018-07-30 06:01 | PN ---
PROGRESS NOTE DATE OF SERVICE: 07/29/2018 REASON FOR FOLLOWUP: 1. Possible ischemic colitis. 2. Right lateral ankle wound. INTERVAL HISTORY: The patient is currently afebrile. He is breathing comfortably. Denies significant chest pain or cough. Still has some abdominal pain. No nausea, vomiting. Diarrhea slightly slowed down. Denies pain to the right lateral ankle wound area. PHYSICAL EXAMINATION: Blood pressure is 152/56 with a pulse of 87, temperature 97.8. He is 90% on room air. General description is an elderly male up in the chair in no distress. RESPIRATORY SYSTEM: Unlabored breathing. Clear to auscultation anteriorly. HEART: S1, S2. Regular rate and rhythm. ABDOMEN: Soft, no distention. No guarding or rigidity. Right lateral ankle is currently dressed up with no obvious drainage on the dressing. LABS: Hemoglobin is 11, white count of 8.3, BUN of 29, creatinine 1.76. DIAGNOSTIC IMPRESSION AND PLAN: 1. Patient admitted to the hospital with sepsis. Concern for possible ischemic colitis that has been treated medically. The patient is currently on Rocephin and Flagyl and will be continued on a short course of oral antibiotic on discharge. 2. The patient right lateral ankle wound. Local wound care to continue with Aquacel Silver dressing. Keep the area off the pressure. MMODL / IJN: [id number] /
[2018-07-30] MEDS: LEVOTHYROXINE 25 MCG TAB PO SCH (06:17)
[2018-07-30 07:37] LABS: Basophils % (A) 0 %; Eosinophils # (A) 0.2 k/uL (0-0.7); Eosinophils % (A) 2 %; HCT 35.5 % (39.0-53.0); HGB 10.8 gm/dL (13.0-17.5); Hypochromasia Moderate; Lymphocytes # (A) 0.7 k/uL (1.0-4.8); Lymphocytes % (A) 10 %; MCH 27.1 pg (25.0-35.0); MCHC 30.5 g/dL (31.0-37.0); MCV 88.7 fL (80.0-100.0); Mean Platelet Volume 8.6; Monocytes # (A) 0.4 k/uL (0-1.0); Monocytes % (A) 6 %; Neutrophils # (A) 5.5 k/uL (1.3-7.7); Neutrophils % (A) 81 %; Platelet Count 159 k/uL (150-450); RDW 15.8 % (11.5-15.5); WBC 6.8 k/uL (3.8-10.6)
[2018-07-30 07:40] LABS: INR 1.7 (<1.2); Prothrombin Time 15.2 sec (9.0-12.0)
[2018-07-30 07:47] LABS: Albumin 2.5 g/dL (3.5-5.0); Calcium 8.4 mg/dL (8.4-10.2); Potassium 4.2 mmol/L (3.5-5.1); Total Bilirubin 0.4 mg/dL (0.2-1.3); Total Protein 5.8 g/dL (6.3-8.2)
[2018-07-30 07:48] LABS: Glucose,Whole Blood 97 mg/dL (75-99)
[2018-07-30] MEDS: INSULIN ASPART 100 UNIT/ML 1 ML 10 ML VIAL SQ SCH ×4 (08:55→21:48)
[2018-07-30] MEDS: METOPROLOL TARTRATE 50 MG TAB PO SCH ×2 (08:56→19:48)
[2018-07-30] MEDS: metroNIDAZOLE 500 MG TAB PO SCH ×3 (08:56→19:48)
[2018-07-30] MEDS: HEPARIN SODIUM,PORCINE 5,000 UNIT/ML 1 ML VIAL SQ SCH ×2 (08:56→21:47)
[2018-07-30] MEDS: PANTOPRAZOLE 40 MG TABLET PO SCH (08:56)
[2018-07-30] MEDS: hydrALAZINE HCL 25 MG TAB PO SCH ×2 (08:56→19:48)
[2018-07-30] MEDS: cefTRIAXone 2,000 MG in SODIUM CHLORIDE 0.9% 100 ML IVPB SCH (09:39)
[2018-07-30 12:13] LABS: Glucose,Whole Blood 115 mg/dL (75-99)
--- NOTE | 2018-07-30 12:59 | P.PN ---
Subjective Progress Note Date: 07/30/18 This is an 82-year-old male patient of Dr. kelly. Patient presented to the emergency room with complaints of abdominal pain and diarrhea patient also states he's been having episodes of emesis. Patient has a known past medical history history of atrial fibrillation which she takes Coumadin. Chest pain, heart failure GERD, hyperlipidemia, hypertension and prostate disorder. Patient is extremely hard of hearing and therefore a poor historian. CT of abdomen completed in emergency room showing a small bilateral pleural effusion, borderline cardiomegaly, mild diffuse tenderness Scaccia type II. Correlate for fluid overload state. Partially visualized rounded area in the right mid to lower lung on the first slice this could represent a mass or pseudotumor due to fluid within the minor seizure. Consider initial assessment chest x-ray. Prominent fluid with a mildly thickened mid to lower abdominal small bowel loops additional liquid stool throughout the colon. Correlate for enteritis or enterocolitis. Prostatomegaly. Chest x-ray completed showing masslike areas of consolidation the right greater than left midlung. This was present to some extent on the 11/07/2017 exam making loculated pleural fluid more likely than underlying neoplasm. CT completed showing atrial fibrillation with rapid ventricular response with premature ventricular or aberrantly conducted complexes. Patient was started on Cardizem drip. Initial WBC 15.2. Lactic acid 6.4. Lactic acid increasing to 10.4. Patient received 4 L of IV fluid per critical care team. Repeat lactic acid 5.7. AST 318 ALT 263 and alkaline phosphatase 152. INR is 3.1 patient admitted to the intensive care unit and Dr. Calzada per critical care consulted. Dr. Whaley per GI service is consulted. Dr. Shahid per surgical service is consulted. Per nursing staff patient did have episodes of approximately 150 mL of bloody stool this a.m. Discussed case at bedside with Dr. Calzada per critical care. Concerns for ischemic colitis. Orders placed to reverse Coumadin with vitamin K. Bicarb gtt initiated per critical care. Abdominal x-ray ordered per critical care. Surgical services paged per nursing staff. On 07/23/2018 patient was seen and examined in ICU he is alert and oriented 3 in no apparent distress, he has NG tube in, he is complaining of abdominal pain , he had episodes of bloody diarrhea are clear, he denies any vomiting, he denies any chest pain or shortness of breath no cough and no urinary symptoms. On 07/24/2018 patient was seen and examined in ICU he is more drowsy today, but awake easily and respond to questions abdominal pain has improved, he had greenish color bowel movement without any bleeding, he denies any vomiting there is no fever or chills no headache no chest pain no shortness of breath no cough and no urinary symptoms. 07/25/2018 patient remains in the intensive care unit. Patient is sleepy but arousable. Per nursing staff patient has not had any blood in stool. Patient denies any vomiting or nausea. Denies any urinary symptoms On 07/26/2018 patient has been out of the intensive care unit to [facility]. Patient is sleepy but arousable. Patient is alert but extremely hard of hearing. At this time patient denies chest pain or shortness of breath. Denies any nausea vomiting or diarrhea. Denies any urinary burning or frequency. On 07/27/2018 patient is currently resting comfortably. Patient is alert and oriented but extremely hard of hearing. This point patient denies chest pain or shortness breath. Patient denies any nausea vomiting or diarrhea. Patient denies urinary burning or frequency On 07/28/2018 patient is currently resting comfortably. Discussed case with case management. Patient is alert and oriented 3. Patient is adamant that he is going to return home and refusing any rehab at this point. Case management to discuss with son. At this point patient denies chest pain or shortness of breath. Patient denies any urinary burning or frequency patient denies nausea vomiting or diarrhea. Per nursing staff patient has not had any blood in bowel movements. Hemoglobin stable Coumadin will be resumed. On 07/29/2018 patient is resting comfortably in bed. Patient has been up in chair with assistance. Patient had elevated blood pressures this AM. Hydralazine by mouth has been added. At this time patient denies chest pain or shortness breath. Denies diarrhea. Patient denies any urinary burning. On 07/30/2018 patient is alert and oriented 3 he is hard of hearing he is laying comfortably in bed denies any pain or discomfort at this time, hydralazine was added yesterday to regimen blood pressure is still elevated we will increase hydralazine to 25 mg 3 times daily Objective - Vital Signs Vital signs: Vital Signs Temp 96.8 F L 07/30/18 05:19 Pulse 96 07/30/18 05:19 Resp 16 07/30/18 05:19 BP 154/90 07/30/18 05:19 Pulse Ox 92 L 07/30/18 05:19 Intake & Output 07/29/18 07/30/18 07/30/18 18:59 06:59 18:59 Intake Total 358 0 Output Total 201 Balance 157 0 Weight 83.9 kg Intake: Oral 358 0 Output: Urine 200 Stool 1 Other: Voiding Method Incontinent Diaper Incontinent # Voids 1 2 2 # Bowel Movements 1 1 - Exam Head normocephalic and atraumatic Neck supple no JVD no goiter Lungs clear to auscultation bilaterally no wheezing or crackles Heart regular rate and rhythm S1-S2, no rub or gallop Abdomen slightly distended. Diffuse tenderness throughout abdomen. Hypo-bowel sounds Extremities no edema there is prior left lower extremity amputation Neuro alert and orientated to 3 - Labs CBC & Chem 7: 07/30/18 07:04 07/30/18 07:04 Labs: Abnormal Lab Results - Last 24 Hours (Table) 07/29/18 07/30/18 07/30/18 Range/Units 21:18 07:04 07:04 RBC 4.00 L (4.30-5.90) m/uL Hgb 10.8 L (13.0-17.5) gm/dL Hct 35.5 L (39.0-53.0) % MCHC 30.5 L (31.0-37.0) g/dL RDW 15.8 H (11.5-15.5) % Lymphocytes # 0.7 L (1.0-4.8) k/uL PT (9.0-12.0) sec INR (<1.2) Chloride 109 H (98-107) mmol/L Carbon Dioxide 21 L (22-30) mmol/L BUN 30 H (9-20) mg/dL Creatinine 1.78 H (0.66-1.25) mg/dL POC Glucose (mg/dL) 112 H (75-99) mg/dL Total Protein 5.8 L (6.3-8.2) g/dL Albumin 2.5 L (3.5-5.0) g/dL 07/30/18 07/30/18 Range/Units 07:04 12:11 RBC (4.30-5.90) m/uL Hgb (13.0-17.5) gm/dL Hct (39.0-53.0) % MCHC (31.0-37.0) g/dL RDW (11.5-15.5) % Lymphocytes # (1.0-4.8) k/uL PT 15.2 H (9.0-12.0) sec INR 1.7 H (<1.2) Chloride (98-107) mmol/L Carbon Dioxide (22-30) mmol/L BUN (9-20) mg/dL Creatinine (0.66-1.25) mg/dL POC Glucose (mg/dL) 115 H (75-99) mg/dL Total Protein (6.3-8.2) g/dL Albumin (3.5-5.0) g/dL Assessment and Plan Plan: 1. lower abdominal pain, acute, associated with lactic acidosis. CT abdomen completed showing prominent fluid within mildly thickened mid to lower abdominal small bowel loops been additional liquid stool throughout the colon. Correlate for enteritis and enterocolitis. Lactic acid elevated as high as 10.4. Patient did receive 4 L of IV fluid per critical care. Repeat lactic 5.6. Per nursing staff patient did have episode of approximately 150 mL of bloody stool this a.m.. GI and surgical services consulted. Abdominal x-ray completed per critical care showing persistent overall nonobstructive bowel gas pattern. Bicarb drip has been ordered per critical care vitamin K order to reverse Coumadin. Patient currently on Zosyn for antibiotic. Per surgical services at this time continue IV antibiotics and bowel rest. Patient currently tolerating regular diet. GI services have patient. Patient to follow -up outpatient to 3 weeks discussion of possible outpatient EGD. Patient remains on IV Zosyn. Per infectious disease patient will receive a short course of oral Cipro and Flagyl upon discharge. 2. abnormal LFTs with dilated gallbladder. Abdominal ultrasound completed showing large gallbladder mild wall thickening and pericholecystic fluid consistent with cholecystitis. No gallstones identified no dilated ducts. Dr. Shahid for surgical service is consulted. Liver enzymes improving. Continue monitor closely 3. diarrhea with lactic acidosis. C. diff negative 4. Sepsis related to possible ischemic colitis. Initial lactic acid 7.2. Lactic acid increasing to as high as 10.4. Patient received 4 L of IV fluid per critical care. This a.m. lactic acid 5.7. Sepsis protocol initiated. Currently on Zosyn for antibiotic. Repeat lactic acid 1.6. White blood cell 11.4. Per infectious disease patient will require short course of oral antibiotics on discharge 5. history of coronary artery disease 6. congestion heart failure with ejection fraction of 45-50% 7. chronic atrial fibrillation maintained on long-term medical condition with warfarin with therapeutic PT/INR. Coumadin on hold due to GI bleed. INR 3.1. Vit K has been ordered per critical care. Cardiology services consulted. No active bleeding at this time. Coumadin will be resumed 8. 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 History of dementia 10. History of Hearing 11. 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 History of BPH 13. Debility and impaired performance and functional status second above- mentioned comorbidities 14. pseudotumor within the right lung , patient has fluid within the right fissure that has been visualized on previous CAT scans and chest x-rays. 15. History of essential hypertension. patient had episode of blood pressure in the 200s this a.m. Hydralazine by mouth has been added. 16. Per nursing staff concerns for aspiration. NG tube was placed to LIS. X- ray obtained showing overall stable findings, cardiomegaly with central vascular congestion and bilateral perihilar edema and/or infiltrate is small to tiny right greater than left pleural effusions are redemonstrated. Dr. Calzada following for pulmonary and critical care. Patient currently on Zosyn 17. Atrial fibrillation with rapid ventricular response. Patient does have history of A. fib and was on Coumadin.. Patient started on Cardizem drip. Due to possible surgical intervention. Coumadin has been reversed with vitamin K per critical care team. Heart rate currently in the 70s and 80s. No active bleeding reported per nursing staff. Hemoglobin stable. Coumadin will be resumed. 18. Low urine output. Patient was given 4 L of fluid throughout night. Critical care team following. Resolved 19. Acute kidney injury. patient did received fluid resuscitation per sepsis protocol per critical care. Continue to monitor closely. Creatinine improving to 1.76 and bun 29. DVT prophylaxis heparin and GI prophylaxis Protonix Social work has been consulted for initiation of discharge planning. Per case management patient is refusing any rehab. Patient remains 2 person assist. Patient does live alone with minimal assistance. Case management trying to get a hold of patient's son. Dr. Barton consulted for possible inpatient rehab. Patient refusing any type of rehab at this time. channel business manager following. Patient to continue working with PT and OT. Patient will likely stay in hospital through the weekend possible discharge Wednesday.
[2018-07-30 17:21] LABS: Glucose,Whole Blood 91 mg/dL (75-99)
[2018-07-30] MEDS: WARFARIN 2.5 MG TAB PO SCH (17:58)
[2018-07-30] MEDS: SERTRALINE 50 MG TAB PO SCH (19:48)
[2018-07-30 21:04] LABS: Glucose,Whole Blood 139 mg/dL (75-99)
[2018-07-31] MEDS: LEVOTHYROXINE 25 MCG TAB PO SCH (06:39)
[2018-07-31 07:48] LABS: Glucose,Whole Blood 85 mg/dL (75-99)
[2018-07-31 08:17] LABS: Anisocytosis Slight; Basophils % (A) 0 %; Eosinophils # (A) 0.1 k/uL (0-0.7); Eosinophils % (A) 2 %; HCT 36.7 % (39.0-53.0); HGB 11.3 gm/dL (13.0-17.5); Hypochromasia Moderate; Lymphocytes # (A) 0.8 k/uL (1.0-4.8); Lymphocytes % (A) 12 %; MCH 27.4 pg (25.0-35.0); MCHC 30.7 g/dL (31.0-37.0); MCV 89.3 fL (80.0-100.0); Mean Platelet Volume 7.7; Monocytes # (A) 0.3 k/uL (0-1.0); Monocytes % (A) 5 %; Neutrophils # (A) 5.4 k/uL (1.3-7.7); Neutrophils % (A) 80 %; Platelet Count 193 k/uL (150-450); RBC 4.11 m/uL (4.30-5.90); RDW 16.4 % (11.5-15.5); WBC 6.7 k/uL (3.8-10.6)
[2018-07-31 08:21] LABS: INR 1.9 (<1.2); Prothrombin Time 17.1 sec (9.0-12.0)
[2018-07-31] MEDS: INSULIN ASPART 100 UNIT/ML 1 ML 10 ML VIAL SQ SCH ×4 (08:21→21:08)
[2018-07-31 09:00] LABS: Albumin 2.4 g/dL (3.5-5.0); Calcium 8.4 mg/dL (8.4-10.2); Potassium 4.1 mmol/L (3.5-5.1); Total Bilirubin 0.4 mg/dL (0.2-1.3); Total Protein 5.8 g/dL (6.3-8.2)
[2018-07-31] MEDS: cefTRIAXone 2,000 MG in SODIUM CHLORIDE 0.9% 100 ML IVPB SCH (10:12)
[2018-07-31] MEDS: METOPROLOL TARTRATE 50 MG TAB PO SCH ×2 (10:12→20:01)
[2018-07-31] MEDS: HEPARIN SODIUM,PORCINE 5,000 UNIT/ML 1 ML VIAL SQ SCH ×2 (10:13→20:01)
[2018-07-31] MEDS: metroNIDAZOLE 500 MG TAB PO SCH ×3 (10:13→20:01)
[2018-07-31] MEDS: hydrALAZINE HCL 25 MG TAB PO SCH ×2 (10:13→20:01)
[2018-07-31] MEDS: PANTOPRAZOLE 40 MG TABLET PO SCH (10:13)
--- NOTE | 2018-07-31 10:15 | P.PN ---
Subjective Progress Note Date: 07/31/18 This is an 82-year-old male patient of Dr. kelly. Patient presented to the emergency room with complaints of abdominal pain and diarrhea patient also states he's been having episodes of emesis. Patient has a known past medical history history of atrial fibrillation which she takes Coumadin. Chest pain, heart failure GERD, hyperlipidemia, hypertension and prostate disorder. Patient is extremely hard of hearing and therefore a poor historian. CT of abdomen completed in emergency room showing a small bilateral pleural effusion, borderline cardiomegaly, mild diffuse tenderness Scaccia type II. Correlate for fluid overload state. Partially visualized rounded area in the right mid to lower lung on the first slice this could represent a mass or pseudotumor due to fluid within the minor seizure. Consider initial assessment chest x-ray. Prominent fluid with a mildly thickened mid to lower abdominal small bowel loops additional liquid stool throughout the colon. Correlate for enteritis or enterocolitis. Prostatomegaly. Chest x-ray completed showing masslike areas of consolidation the right greater than left midlung. This was present to some extent on the 11/07/2017 exam making loculated pleural fluid more likely than underlying neoplasm. CT completed showing atrial fibrillation with rapid ventricular response with premature ventricular or aberrantly conducted complexes. Patient was started on Cardizem drip. Initial WBC 15.2. Lactic acid 6.4. Lactic acid increasing to 10.4. Patient received 4 L of IV fluid per critical care team. Repeat lactic acid 5.7. AST 318 ALT 263 and alkaline phosphatase 152. INR is 3.1 patient admitted to the intensive care unit and Dr. Calzada per critical care consulted. Dr. Whaley per GI service is consulted. Dr. Shahid per surgical service is consulted. Per nursing staff patient did have episodes of approximately 150 mL of bloody stool this a.m. Discussed case at bedside with Dr. Calzada per critical care. Concerns for ischemic colitis. Orders placed to reverse Coumadin with vitamin K. Bicarb gtt initiated per critical care. Abdominal x-ray ordered per critical care. Surgical services paged per nursing staff. On 07/23/2018 patient was seen and examined in ICU he is alert and oriented 3 in no apparent distress, he has NG tube in, he is complaining of abdominal pain , he had episodes of bloody diarrhea are clear, he denies any vomiting, he denies any chest pain or shortness of breath no cough and no urinary symptoms. On 07/24/2018 patient was seen and examined in ICU he is more drowsy today, but awake easily and respond to questions abdominal pain has improved, he had greenish color bowel movement without any bleeding, he denies any vomiting there is no fever or chills no headache no chest pain no shortness of breath no cough and no urinary symptoms. 07/25/2018 patient remains in the intensive care unit. Patient is sleepy but arousable. Per nursing staff patient has not had any blood in stool. Patient denies any vomiting or nausea. Denies any urinary symptoms On 07/26/2018 patient has been out of the intensive care unit to [facility]. Patient is sleepy but arousable. Patient is alert but extremely hard of hearing. At this time patient denies chest pain or shortness of breath. Denies any nausea vomiting or diarrhea. Denies any urinary burning or frequency. On 07/27/2018 patient is currently resting comfortably. Patient is alert and oriented but extremely hard of hearing. This point patient denies chest pain or shortness breath. Patient denies any nausea vomiting or diarrhea. Patient denies urinary burning or frequency On 07/28/2018 patient is currently resting comfortably. Discussed case with case management. Patient is alert and oriented 3. Patient is adamant that he is going to return home and refusing any rehab at this point. Case management to discuss with son. At this point patient denies chest pain or shortness of breath. Patient denies any urinary burning or frequency patient denies nausea vomiting or diarrhea. Per nursing staff patient has not had any blood in bowel movements. Hemoglobin stable Coumadin will be resumed. On 07/29/2018 patient is resting comfortably in bed. Patient has been up in chair with assistance. Patient had elevated blood pressures this AM. Hydralazine by mouth has been added. At this time patient denies chest pain or shortness breath. Denies diarrhea. Patient denies any urinary burning. On 07/30/2018 patient is alert and oriented 3 he is hard of hearing he is laying comfortably in bed denies any pain or discomfort at this time, hydralazine was added yesterday to regimen blood pressure is still elevated we will increase hydralazine to 25 mg 3 times daily. On 07/31/2018 patient was seen and examined on the fourth floor he is sitting up in a chair he was able to pivot from his bed to the chair with one person help, he is alert and oriented however he is very hard of hearing he denies any pain or discomfort at this time, blood pressure is still elevated dose of hydralazine was increased yesterday to 25 mg 3 times daily, he is also maintained on metoprolol 50 mg twice daily, will continue to monitor and adjust medications as needed. Objective - Vital Signs Vital signs: Vital Signs Temp 97.2 F L 07/31/18 07:00 Pulse 90 07/31/18 07:00 Resp 20 07/31/18 07:00 BP 180/61 07/31/18 07:00 Pulse Ox 91 L 07/31/18 07:00 Intake & Output 07/30/18 07/31/18 07/31/18 18:59 06:59 18:59 Other: Voiding Method Diaper Diaper Incontinent Incontinent # Voids 1 2 # Bowel Movements 1 1 - Exam Head normocephalic and atraumatic Neck supple no JVD no goiter Lungs clear to auscultation bilaterally no wheezing or crackles Heart regular rate and rhythm S1-S2, no rub or gallop Abdomen slightly distended. Diffuse tenderness throughout abdomen. Hypo-bowel sounds Extremities no edema there is prior left lower extremity amputation Neuro alert and orientated to 3 - Labs CBC & Chem 7: 07/31/18 07:39 07/31/18 07:39 Labs: Abnormal Lab Results - Last 24 Hours (Table) 07/30/18 07/30/18 07/31/18 Range/Units 12:11 20:59 07:39 RBC 4.11 L (4.30-5.90) m/uL Hgb 11.3 L (13.0-17.5) gm/dL Hct 36.7 L (39.0-53.0) % MCHC 30.7 L (31.0-37.0) g/dL RDW 16.4 H (11.5-15.5) % Lymphocytes # 0.8 L (1.0-4.8) k/uL PT (9.0-12.0) sec INR (<1.2) Chloride (98-107) mmol/L Carbon Dioxide (22-30) mmol/L BUN (9-20) mg/dL Creatinine (0.66-1.25) mg/dL POC Glucose (mg/dL) 115 H 139 H (75-99) mg/dL Total Protein (6.3-8.2) g/dL Albumin (3.5-5.0) g/dL 07/31/18 07/31/18 Range/Units 07:39 07:39 RBC (4.30-5.90) m/uL Hgb (13.0-17.5) gm/dL Hct (39.0-53.0) % MCHC (31.0-37.0) g/dL RDW (11.5-15.5) % Lymphocytes # (1.0-4.8) k/uL PT 17.1 H (9.0-12.0) sec INR 1.9 H (<1.2) Chloride 109 H (98-107) mmol/L Carbon Dioxide 21 L (22-30) mmol/L BUN 29 H (9-20) mg/dL Creatinine 1.67 H (0.66-1.25) mg/dL POC Glucose (mg/dL) (75-99) mg/dL Total Protein 5.8 L (6.3-8.2) g/dL Albumin 2.4 L (3.5-5.0) g/dL Assessment and Plan Plan: 1. lower abdominal pain, acute, associated with lactic acidosis. CT abdomen completed showing prominent fluid within mildly thickened mid to lower abdominal small bowel loops been additional liquid stool throughout the colon. Correlate for enteritis and enterocolitis. Lactic acid elevated as high as 10.4. Patient did receive 4 L of IV fluid per critical care. Repeat lactic 5.6. Per nursing staff patient did have episode of approximately 150 mL of bloody stool this a.m.. GI and surgical services consulted. Abdominal x-ray completed per critical care showing persistent overall nonobstructive bowel gas pattern. Bicarb drip has been ordered per critical care vitamin K order to reverse Coumadin. Patient currently on Zosyn for antibiotic. Per surgical services at this time continue IV antibiotics and bowel rest. Patient currently tolerating regular diet. GI services have patient. Patient to follow -up outpatient to 3 weeks discussion of possible outpatient EGD. Patient remains on IV Zosyn. Per infectious disease patient will receive a short course of oral Cipro and Flagyl upon discharge. 2. abnormal LFTs with dilated gallbladder. Abdominal ultrasound completed showing large gallbladder mild wall thickening and pericholecystic fluid consistent with cholecystitis. No gallstones identified no dilated ducts. Dr. Shahid for surgical service is consulted. Liver enzymes improving. Continue monitor closely 3. diarrhea with lactic acidosis. C. diff negative 4. Sepsis related to possible ischemic colitis. Initial lactic acid 7.2. Lactic acid increasing to as high as 10.4. Patient received 4 L of IV fluid per critical care. This a.m. lactic acid 5.7. Sepsis protocol initiated. Currently on Zosyn for antibiotic. Repeat lactic acid 1.6. White blood cell 11.4. Per infectious disease patient will require short course of oral antibiotics on discharge 5. history of coronary artery disease 6. congestion heart failure with ejection fraction of 45-50% 7. chronic atrial fibrillation maintained on long-term medical condition with warfarin with therapeutic PT/INR. Coumadin on hold due to GI bleed. INR 3.1. Vit K has been ordered per critical care. Cardiology services consulted. No active bleeding at this time. Coumadin will be resumed 8. 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 History of dementia 10. History of Hearing 11. 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 History of BPH 13. Debility and impaired performance and functional status second above- mentioned comorbidities 14. pseudotumor within the right lung , patient has fluid within the right fissure that has been visualized on previous CAT scans and chest x-rays. 15. History of essential hypertension. patient had episode of blood pressure in the 200s this a.m. Hydralazine by mouth has been added. 16. Per nursing staff concerns for aspiration. NG tube was placed to LIS. X- ray obtained showing overall stable findings, cardiomegaly with central vascular congestion and bilateral perihilar edema and/or infiltrate is small to tiny right greater than left pleural effusions are redemonstrated. Dr. Elsi liang for pulmonary and critical care. Patient currently on Zosyn 17. Atrial fibrillation with rapid ventricular response. Patient does have history of A. fib and was on Coumadin.. Patient started on Cardizem drip. Due to possible surgical intervention. Coumadin has been reversed with vitamin K per critical care team. Heart rate currently in the 70s and 80s. No active bleeding reported per nursing staff. Hemoglobin stable. Coumadin will be resumed. 18. Low urine output. Patient was given 4 L of fluid throughout night. Critical care team following. Resolved 19. Acute kidney injury. patient did received fluid resuscitation per sepsis protocol per critical care. Continue to monitor closely. Creatinine improving to 1.76 and bun 29. DVT prophylaxis heparin and GI prophylaxis Protonix Social work has been consulted for initiation of discharge planning. Per case management patient is refusing any rehab. Patient remains 2 person assist. Patient does live alone with minimal assistance. Case management trying to get a hold of patient's son. Dr. Barton consulted for possible inpatient rehab. Patient refusing any type of rehab at this time. country manager following. Patient to continue working with PT and OT. Patient will likely stay in hospital through the weekend possible discharge Wednesday.
[2018-07-31 12:26] LABS: Glucose,Whole Blood 131 mg/dL (75-99)
[2018-07-31 17:06] LABS: Glucose,Whole Blood 110 mg/dL (75-99)
[2018-07-31] MEDS: WARFARIN 2.5 MG TAB PO SCH (17:35)
[2018-07-31] MEDS: SERTRALINE 50 MG TAB PO SCH (20:01)
[2018-07-31 21:26] LABS: Glucose,Whole Blood 110 mg/dL (75-99)
--- NOTE | 2018-08-01 00:06 | PN ---
PROGRESS NOTE DATE OF SERVICE: 07/31/2018. REASON FOR FOLLOWUP: 1. Possible ischemic colitis. 2. Right lateral ankle wound. INTERVAL HISTORY: The patient is afebrile. Has been breathing comfortably. Denies significant chest pain or cough. No worsening abdominal pain. No diarrhea reported by the nursing staff. PHYSICAL EXAMINATION: Blood pressure is 159/89 with a pulse of 73, temperature 98.8. He is 94% on room air. GENERAL DESCRIPTION: An elderly male lying in bed in no distress. RESPIRATORY SYSTEM: Unlabored breathing. Clear to auscultation anteriorly. HEART: S1, S2. Regular rate and rhythm. ABDOMEN: Soft, no tenderness. EXTREMITIES: Right leg wound is currently dressed up. No obvious drainage on the dressing. LABS: White count 6.7, BUN of 29, creatinine 1.67. DIAGNOSTIC IMPRESSION AND PLAN: 1. Patient admitted to the hospital with sepsis, concern for possible ischemic colitis. Continue treating medically. Currently on Rocephin and Flagyl. The patient will be treated with a short course of oral Ceftin and Flagyl for about a week. 2. Right lateral left ankle wound. Local wound care with Aquacel dressing. Continue supportive care. MMODL / IJN: [id number] /
[2018-08-01] MEDS: LEVOTHYROXINE 25 MCG TAB PO SCH (06:24)
[2018-08-01 07:15] LABS: Glucose,Whole Blood 112 mg/dL (75-99)
[2018-08-01 08:20] LABS: Anisocytosis Slight; Basophils % (A) 0 %; Eosinophils # (A) 0.1 k/uL (0-0.7); Eosinophils % (A) 2 %; HCT 35.8 % (39.0-53.0); HGB 11.5 gm/dL (13.0-17.5); Hypochromasia Moderate; Lymphocytes # (A) 0.8 k/uL (1.0-4.8); Lymphocytes % (A) 12 %; MCH 28.2 pg (25.0-35.0); MCHC 32.2 g/dL (31.0-37.0); MCV 87.8 fL (80.0-100.0); Mean Platelet Volume 8.9; Monocytes # (A) 0.3 k/uL (0-1.0); Monocytes % (A) 5 %; Neutrophils # (A) 5.4 k/uL (1.3-7.7); Neutrophils % (A) 81 %; Platelet Count 213 k/uL (150-450); RBC 4.08 m/uL (4.30-5.90); RDW 16.4 % (11.5-15.5); WBC 6.7 k/uL (3.8-10.6)
[2018-08-01 08:23] LABS: INR 1.9 (<1.2); Prothrombin Time 17.5 sec (9.0-12.0)
[2018-08-01 08:45] LABS: Albumin 2.5 g/dL (3.5-5.0); Calcium 8.5 mg/dL (8.4-10.2); Potassium 3.8 mmol/L (3.5-5.1); Total Bilirubin 0.4 mg/dL (0.2-1.3); Total Protein 5.8 g/dL (6.3-8.2)
[2018-08-01] MEDS: PANTOPRAZOLE 40 MG TABLET PO SCH (09:28)
[2018-08-01] MEDS: metroNIDAZOLE 500 MG TAB PO SCH ×3 (09:28→20:34)
[2018-08-01] MEDS: METOPROLOL TARTRATE 50 MG TAB PO SCH ×2 (09:28→20:34)
[2018-08-01] MEDS: hydrALAZINE HCL 25 MG TAB PO SCH ×2 (09:28→20:34)
[2018-08-01] MEDS: cefTRIAXone 2,000 MG in SODIUM CHLORIDE 0.9% 100 ML IVPB SCH (09:29)
[2018-08-01] MEDS: INSULIN ASPART 100 UNIT/ML 1 ML 10 ML VIAL SQ SCH ×4 (09:29→20:38)
[2018-08-01] MEDS: HEPARIN SODIUM,PORCINE 5,000 UNIT/ML 1 ML VIAL SQ SCH ×2 (09:29→20:34)
[2018-08-01] MEDS: ONDANSETRON 4 MG/2 ML VIAL IVP PRN (09:37)
[2018-08-01] MEDS ORDERED: IOPAMIDOL-300 CONTRAST 30 ML VIAL (ORAL USE) PO PRN (11:22)
[2018-08-01 11:38] LABS: Glucose,Whole Blood 126 mg/dL (75-99)
--- NOTE | 2018-08-01 11:40 | P.PN ---
Subjective Progress Note Date: 08/01/18 This is an 82-year-old male patient of Dr. kelly. Patient presented to the emergency room with complaints of abdominal pain and diarrhea patient also states he's been having episodes of emesis. Patient has a known past medical history history of atrial fibrillation which she takes Coumadin. Chest pain, heart failure GERD, hyperlipidemia, hypertension and prostate disorder. Patient is extremely hard of hearing and therefore a poor historian. CT of abdomen completed in emergency room showing a small bilateral pleural effusion, borderline cardiomegaly, mild diffuse tenderness Scaccia type II. Correlate for fluid overload state. Partially visualized rounded area in the right mid to lower lung on the first slice this could represent a mass or pseudotumor due to fluid within the minor seizure. Consider initial assessment chest x-ray. Prominent fluid with a mildly thickened mid to lower abdominal small bowel loops additional liquid stool throughout the colon. Correlate for enteritis or enterocolitis. Prostatomegaly. Chest x-ray completed showing masslike areas of consolidation the right greater than left midlung. This was present to some extent on the 11/07/2017 exam making loculated pleural fluid more likely than underlying neoplasm. CT completed showing atrial fibrillation with rapid ventricular response with premature ventricular or aberrantly conducted complexes. Patient was started on Cardizem drip. Initial WBC 15.2. Lactic acid 6.4. Lactic acid increasing to 10.4. Patient received 4 L of IV fluid per critical care team. Repeat lactic acid 5.7. AST 318 ALT 263 and alkaline phosphatase 152. INR is 3.1 patient admitted to the intensive care unit and Dr. Calzada per critical care consulted. Dr. Whaley per GI service is consulted. Dr. Shahid per surgical service is consulted. Per nursing staff patient did have episodes of approximately 150 mL of bloody stool this a.m. Discussed case at bedside with Dr. Calzada per critical care. Concerns for ischemic colitis. Orders placed to reverse Coumadin with vitamin K. Bicarb gtt initiated per critical care. Abdominal x-ray ordered per critical care. Surgical services paged per nursing staff. On 07/23/2018 patient was seen and examined in ICU he is alert and oriented 3 in no apparent distress, he has NG tube in, he is complaining of abdominal pain , he had episodes of bloody diarrhea are clear, he denies any vomiting, he denies any chest pain or shortness of breath no cough and no urinary symptoms. On 07/24/2018 patient was seen and examined in ICU he is more drowsy today, but awake easily and respond to questions abdominal pain has improved, he had greenish color bowel movement without any bleeding, he denies any vomiting there is no fever or chills no headache no chest pain no shortness of breath no cough and no urinary symptoms. 07/25/2018 patient remains in the intensive care unit. Patient is sleepy but arousable. Per nursing staff patient has not had any blood in stool. Patient denies any vomiting or nausea. Denies any urinary symptoms On 07/26/2018 patient has been out of the intensive care unit to [facility]. Patient is sleepy but arousable. Patient is alert but extremely hard of hearing. At this time patient denies chest pain or shortness of breath. Denies any nausea vomiting or diarrhea. Denies any urinary burning or frequency. On 07/27/2018 patient is currently resting comfortably. Patient is alert and oriented but extremely hard of hearing. This point patient denies chest pain or shortness breath. Patient denies any nausea vomiting or diarrhea. Patient denies urinary burning or frequency On 07/28/2018 patient is currently resting comfortably. Discussed case with case management. Patient is alert and oriented 3. Patient is adamant that he is going to return home and refusing any rehab at this point. Case management to discuss with son. At this point patient denies chest pain or shortness of breath. Patient denies any urinary burning or frequency patient denies nausea vomiting or diarrhea. Per nursing staff patient has not had any blood in bowel movements. Hemoglobin stable Coumadin will be resumed. On 07/29/2018 patient is resting comfortably in bed. Patient has been up in chair with assistance. Patient had elevated blood pressures this AM. Hydralazine by mouth has been added. At this time patient denies chest pain or shortness breath. Denies diarrhea. Patient denies any urinary burning. On 07/30/2018 patient is alert and oriented 3 he is hard of hearing he is laying comfortably in bed denies any pain or discomfort at this time, hydralazine was added yesterday to regimen blood pressure is still elevated we will increase hydralazine to 25 mg 3 times daily. On 07/31/2018 patient was seen and examined on the fourth floor he is sitting up in a chair he was able to pivot from his bed to the chair with one person help, he is alert and oriented however he is very hard of hearing he denies any pain or discomfort at this time, blood pressure is still elevated dose of hydralazine was increased yesterday to 25 mg 3 times daily, he is also maintained on metoprolol 50 mg twice daily, will continue to monitor and adjust medications as needed. On 08/01/2018 patient is currently alert and oriented 3. She complains of abdominal pain with nausea and diarrhea. Abdomen does appear slightly distended. Computed tomography scan of abdomen with oral contrast has been ordered. Normal saline at 75 has been added. Patient denies chest pain or shortness breath. Patient denies any urinary burning or frequency. Objective - Vital Signs Vital signs: Vital Signs Temp 98.6 F 08/01/18 06:50 Pulse 80 08/01/18 06:50 Resp 20 08/01/18 06:50 BP 146/79 08/01/18 06:50 Pulse Ox 92 L 08/01/18 07:59 Intake & Output 07/31/18 08/01/18 08/01/18 18:59 06:59 18:59 Intake Total 600 600 Output Total 201 1 Balance 600 399 -1 Weight 83.9 kg Intake: Oral 600 600 Output: Urine 200 Stool 1 1 Other: Voiding Method Diaper Diaper Incontinent Incontinent # Voids 2 3 # Bowel Movements 2 0 - Exam Head normocephalic Neck supple Lungs clear to auscultation bilaterally no wheezing or crackles Heart regular rate and rhythm S1-S2, no rub or gallop Abdomen is lightly distended with tenderness to palpation Extremities no edema Neuro alert and orientated to 3 - Labs CBC & Chem 7: 08/01/18 08:04 08/01/18 08:04 Labs: Abnormal Lab Results - Last 24 Hours (Table) 07/31/18 07/31/18 07/31/18 Range/Units 12:23 17:03 21:24 RBC (4.30-5.90) m/uL Hgb (13.0-17.5) gm/dL Hct (39.0-53.0) % RDW (11.5-15.5) % Lymphocytes # (1.0-4.8) k/uL PT (9.0-12.0) sec INR (<1.2) Chloride (98-107) mmol/L BUN (9-20) mg/dL Creatinine (0.66-1.25) mg/dL POC Glucose (mg/dL) 131 H 110 H 110 H (75-99) mg/dL AST (17-59) U/L Total Protein (6.3-8.2) g/dL Albumin (3.5-5.0) g/dL 08/01/18 08/01/18 08/01/18 Range/Units 07:00 08:04 08:04 RBC 4.08 L (4.30-5.90) m/uL Hgb 11.5 L (13.0-17.5) gm/dL Hct 35.8 L (39.0-53.0) % RDW 16.4 H (11.5-15.5) % Lymphocytes # 0.8 L (1.0-4.8) k/uL PT (9.0-12.0) sec INR (<1.2) Chloride 108 H (98-107) mmol/L BUN 26 H (9-20) mg/dL Creatinine 1.68 H (0.66-1.25) mg/dL POC Glucose (mg/dL) 112 H (75-99) mg/dL AST 15 L (17-59) U/L Total Protein 5.8 L (6.3-8.2) g/dL Albumin 2.5 L (3.5-5.0) g/dL 08/01/18 Range/Units 08:04 RBC (4.30-5.90) m/uL Hgb (13.0-17.5) gm/dL Hct (39.0-53.0) % RDW (11.5-15.5) % Lymphocytes # (1.0-4.8) k/uL PT 17.5 H (9.0-12.0) sec INR 1.9 H (<1.2) Chloride (98-107) mmol/L BUN (9-20) mg/dL Creatinine (0.66-1.25) mg/dL POC Glucose (mg/dL) (75-99) mg/dL AST (17-59) U/L Total Protein (6.3-8.2) g/dL Albumin (3.5-5.0) g/dL Assessment and Plan Assessment: 1. lower abdominal pain, acute, associated with lactic acidosis. CT abdomen completed showing prominent fluid within mildly thickened mid to lower abdominal small bowel loops been additional liquid stool throughout the colon. Correlate for enteritis and enterocolitis. Lactic acid elevated as high as 10.4. Patient did receive 4 L of IV fluid per critical care. Repeat lactic 5.6. Per nursing staff patient did have episode of approximately 150 mL of bloody stool this a.m.. GI and surgical services consulted. Abdominal x-ray completed per critical care showing persistent overall nonobstructive bowel gas pattern. Bicarb drip has been ordered per critical care vitamin K order to reverse Coumadin. Patient currently on Zosyn for antibiotic. Per surgical services at this time continue IV antibiotics and bowel rest. Patient currently tolerating regular diet. GI services have patient. Patient to follow -up outpatient to 3 weeks discussion of possible outpatient EGD. Patient remains on IV Rocephin and Flagyl. Per infectious disease patient will receive a short course of oral Cipro and Flagyl upon discharge. Today patient reported abdominal pain with nausea and diarrhea. Computed tomography scan with oral contrast only has been ordered. C. diff sample has been ordered. 2. abnormal LFTs with dilated gallbladder. Abdominal ultrasound completed showing large gallbladder mild wall thickening and pericholecystic fluid consistent with cholecystitis. No gallstones identified no dilated ducts. Dr. Shahid for surgical service is consulted. Liver enzymes improving. Continue monitor closely 3. diarrhea with lactic acidosis. C. diff negative 4. Sepsis related to possible ischemic colitis. Initial lactic acid 7.2. Lactic acid increasing to as high as 10.4. Patient received 4 L of IV fluid per critical care. This a.m. lactic acid 5.7. Sepsis protocol initiated. Currently on Zosyn for antibiotic. Repeat lactic acid 1.6. White blood cell 11.4. Per infectious disease patient will require short course of oral antibiotics on discharge 5. history of coronary artery disease 6. congestion heart failure with ejection fraction of 45-50% 7. chronic atrial fibrillation maintained on long-term medical condition with warfarin with therapeutic PT/INR. Coumadin on hold due to GI bleed. INR 3.1. Vit K has been ordered per critical care. Cardiology services consulted. No active bleeding at this time. Coumadin will be resumed 8. 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 History of dementia 10. History of Hearing 11. 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 History of BPH 13. Debility and impaired performance and functional status second above- mentioned comorbidities 14. pseudotumor within the right lung , patient has fluid within the right fissure that has been visualized on previous CAT scans and chest x-rays. 15. History of essential hypertension. patient had episode of blood pressure in the 200s this a.m. Hydralazine by mouth has been added. Hydralazine had been increased to 3 times a day and Metroprolol 50 mg twice a day for high blood pressure. 16. Per nursing staff concerns for aspiration. NG tube was placed to LIS. X- ray obtained showing overall stable findings, cardiomegaly with central vascular congestion and bilateral perihilar edema and/or infiltrate is small to tiny right greater than left pleural effusions are redemonstrated. Dr. Calzada following for pulmonary and critical care. Patient currently on Rocephin and Flagyl 17. Atrial fibrillation with rapid ventricular response. Patient does have history of A. fib and was on Coumadin.. Patient started on Cardizem drip. Due to possible surgical intervention. Coumadin has been reversed with vitamin K per critical care team. Heart rate currently in the 70s and 80s. No active bleeding reported per nursing staff. Hemoglobin stable. Coumadin will be resumed. 18. Low urine output. Patient was given 4 L of fluid throughout night. Critical care team following. Resolved 19. Acute kidney injury. patient did received fluid resuscitation per sepsis protocol per critical care. Continue to monitor closely. Creatinine improving to 1.76 and bun 29. DVT prophylaxis heparin and GI prophylaxis Protonix Patient refusing any type of rehab at this time. manager [place] following. I performed an examination of the patient and discussed their management with the Nurse Practitioner. I have reviewed the Nurse Practitioner's notes and agree with the documented findings and plan of care
[2018-08-01 12:03] VITALS: BMI 25.7
[2018-08-01] MEDS: SODIUM CHLORIDE 0.9% 1,000 ML IV SCH (13:06)
--- NOTE | 2018-08-01 15:29 | CT ---
EXAMINATION TYPE: CT abdomen pelvis wo con DATE OF EXAM: 08/01/2018 COMPARISON: 07/23/2018 HISTORY: Abdominal pain. CT DLP: 733.4 mGycm Automated exposure control for dose reduction was used. TECHNIQUE: Helical acquisition of images was performed from the lung bases through the pelvis. Exam markedly limited by lack of contrast. FINDINGS: LUNG BASES: There are bilateral pleural effusions. Heart is enlarged. There is bilateral basilar pulm onary infiltrate and atelectasis. Aorta is atheromatous. LIVER/GB: No significant abnormality is appreciated. PANCREAS: No significant abnormality is seen. SPLEEN: No significant abnormality is seen. ADRENALS: No significant abnormality is seen. KIDNEYS: Calcification centrally within the kidneys appear to be vascular. Could not exclude an upper pole bilateral 2 mm calculus. No hydronephrosis.. ADENOPATHY: None visualized. OSSEOUS STRUCTURES: Hypertrophic and degenerative changes of the spine noted. BOWEL: Bowel gas pattern is nonspecific. There is reduced thickening of the right wall of the colon. OTHER: Bladder wall is thickened and there is hyperdensity in the bladder which could represent stone or hemorrhage. Diffuse soft tissue edema is noted and there is a small amount of ascites. Prostate is enlarged. Extensive atherosclerotic change including the mesenteric blood vessels. There appears to be stranding within the abdomen which may been the basis of mesenteric edema. IMPRESSION: 1. Severely limited exam due to lack of contrast and artifact. Appears to be interval reduction in am ount of wall thickening of the right colon which may be on the basis of a history of previous colitis . Correlate clinically. 2. Diffuse anasarca. Small amount of ascites also noted. There is also stranding of the mesentery whi ch may been the basis of mesenteric edema. Peritonitis or inflammatory changes not excluded. 3. Bilateral pleural effusions and basilar infiltrates. 4. Diffuse atherosclerotic changes including the mesenteric vasculature correlate clinically. 5 bladd [address] wall thickening correlate for cystitis. Hyperdensity may represent a calculus or hemorrhage.
[2018-08-01 17:03] LABS: Glucose,Whole Blood 124 mg/dL (75-99)
[2018-08-01] MEDS: WARFARIN 2.5 MG TAB PO SCH (17:18)
[2018-08-01] MEDS: SERTRALINE 50 MG TAB PO SCH (20:34)
[2018-08-01 20:39] LABS: Glucose,Whole Blood 139 mg/dL (75-99)
[2018-08-02] MEDS: SODIUM CHLORIDE 0.9% 1,000 ML IV SCH ×2 (02:03→16:18)
[2018-08-02] MEDS: LEVOTHYROXINE 25 MCG TAB PO SCH (06:38)
[2018-08-02 07:36] LABS: Glucose,Whole Blood 91 mg/dL (75-99)
--- NOTE | 2018-08-02 07:44 | PN ---
PROGRESS NOTE DATE OF SERVICE: 08/01/2018 REASON FOR FOLLOWUP: 1. Possible secondary ischemic colitis. 2. Right lateral ankle wound. INTERVAL HISTORY: The patient is currently afebrile. He is breathing comfortably. Denies having any chest pain, shortness of breath or cough. No abdominal pain. Pain to the left ankle wound. PHYSICAL EXAMINATION: Blood pressure is 136/78 with a pulse of 79, temperature of 97.6, he is 94% on room air. General description is an elderly male, lying in bed in no distress. RESPIRATORY SYSTEM: Unlabored breathing, clear to auscultation anteriorly. HEART: S1, S2. Regular rate and rhythm. ABDOMEN: Soft, no tenderness. Right leg wound is currently dressed, no obvious drainage on the dressing. LABS: Hemoglobin is 11.5, white count of 6.7 with a BUN of 26, creatinine 1.68. DIAGNOSTIC IMPRESSION AND PLAN: 1. Patient in the hospital with sepsis with concern of possible ischemic colitis, being treated medically with Rocephin, Flagyl, will be switched to a short course of oral Ceftin and Flagyl. 2. Right lateral ankle wound with local wound care with Aquacel Silver dressing. Continue supportive care. MMODL / IJN: [id number] /
[2018-08-02] MEDS: metroNIDAZOLE 500 MG TAB PO SCH ×3 (08:56→22:11)
[2018-08-02] MEDS: HEPARIN SODIUM,PORCINE 5,000 UNIT/ML 1 ML VIAL SQ SCH ×2 (08:56→22:11)
[2018-08-02] MEDS: PANTOPRAZOLE 40 MG TABLET PO SCH (08:56)
[2018-08-02] MEDS: cefTRIAXone 2,000 MG in SODIUM CHLORIDE 0.9% 100 ML IVPB SCH (08:56)
[2018-08-02] MEDS: METOPROLOL TARTRATE 50 MG TAB PO SCH ×2 (08:56→22:10)
[2018-08-02] MEDS: hydrALAZINE HCL 25 MG TAB PO SCH ×2 (08:56→22:10)
[2018-08-02] MEDS: INSULIN ASPART 100 UNIT/ML 1 ML 10 ML VIAL SQ SCH ×4 (08:57→21:54)
[2018-08-02 09:19] LABS: Anisocytosis Slight; Basophils % (A) 0 %; Eosinophils # (A) 0.1 k/uL (0-0.7); Eosinophils % (A) 1 %; HCT 35.9 % (39.0-53.0); Hypochromasia Moderate; Lymphocytes # (A) 0.8 k/uL (1.0-4.8); Lymphocytes % (A) 11 %; MCH 27.4 pg (25.0-35.0); MCHC 30.8 g/dL (31.0-37.0); Mean Platelet Volume 7.9; Monocytes # (A) 0.3 k/uL (0-1.0); Monocytes % (A) 4 %; Neutrophils # (A) 5.7 k/uL (1.3-7.7); Neutrophils % (A) 82 %; Platelet Count 214 k/uL (150-450); RBC 4.03 m/uL (4.30-5.90); RDW 16.6 % (11.5-15.5); WBC 6.9 k/uL (3.8-10.6)
[2018-08-02 09:21] LABS: INR 2.1 (<1.2); Prothrombin Time 19.1 sec (9.0-12.0)
[2018-08-02 09:27] LABS: Albumin 2.5 g/dL (3.5-5.0); Calcium 8.4 mg/dL (8.4-10.2); Potassium 4.1 mmol/L (3.5-5.1); Total Bilirubin 0.3 mg/dL (0.2-1.3); Total Protein 5.8 g/dL (6.3-8.2)
[2018-08-02 12:23] LABS: Glucose,Whole Blood 94 mg/dL (75-99)
--- NOTE | 2018-08-02 14:07 | P.PN ---
Subjective Progress Note Date: 08/02/18 This is an 82-year-old male patient of Dr. kelly. Patient presented to the emergency room with complaints of abdominal pain and diarrhea patient also states he's been having episodes of emesis. Patient has a known past medical history history of atrial fibrillation which she takes Coumadin. Chest pain, heart failure GERD, hyperlipidemia, hypertension and prostate disorder. Patient is extremely hard of hearing and therefore a poor historian. CT of abdomen completed in emergency room showing a small bilateral pleural effusion, borderline cardiomegaly, mild diffuse tenderness Scaccia type II. Correlate for fluid overload state. Partially visualized rounded area in the right mid to lower lung on the first slice this could represent a mass or pseudotumor due to fluid within the minor seizure. Consider initial assessment chest x-ray. Prominent fluid with a mildly thickened mid to lower abdominal small bowel loops additional liquid stool throughout the colon. Correlate for enteritis or enterocolitis. Prostatomegaly. Chest x-ray completed showing masslike areas of consolidation the right greater than left midlung. This was present to some extent on the 11/07/2017 exam making loculated pleural fluid more likely than underlying neoplasm. CT completed showing atrial fibrillation with rapid ventricular response with premature ventricular or aberrantly conducted complexes. Patient was started on Cardizem drip. Initial WBC 15.2. Lactic acid 6.4. Lactic acid increasing to 10.4. Patient received 4 L of IV fluid per critical care team. Repeat lactic acid 5.7. AST 318 ALT 263 and alkaline phosphatase 152. INR is 3.1 patient admitted to the intensive care unit and Dr. Calzada per critical care consulted. Dr. Whaley per GI service is consulted. Dr. Shahid per surgical service is consulted. Per nursing staff patient did have episodes of approximately 150 mL of bloody stool this a.m. Discussed case at bedside with Dr. Calzada per critical care. Concerns for ischemic colitis. Orders placed to reverse Coumadin with vitamin K. Bicarb gtt initiated per critical care. Abdominal x-ray ordered per critical care. Surgical services paged per nursing staff. On 07/23/2018 patient was seen and examined in ICU he is alert and oriented 3 in no apparent distress, he has NG tube in, he is complaining of abdominal pain , he had episodes of bloody diarrhea are clear, he denies any vomiting, he denies any chest pain or shortness of breath no cough and no urinary symptoms. On 07/24/2018 patient was seen and examined in ICU he is more drowsy today, but awake easily and respond to questions abdominal pain has improved, he had greenish color bowel movement without any bleeding, he denies any vomiting there is no fever or chills no headache no chest pain no shortness of breath no cough and no urinary symptoms. 07/25/2018 patient remains in the intensive care unit. Patient is sleepy but arousable. Per nursing staff patient has not had any blood in stool. Patient denies any vomiting or nausea. Denies any urinary symptoms On 07/26/2018 patient has been out of the intensive care unit to [facility]. Patient is sleepy but arousable. Patient is alert but extremely hard of hearing. At this time patient denies chest pain or shortness of breath. Denies any nausea vomiting or diarrhea. Denies any urinary burning or frequency. On 07/27/2018 patient is currently resting comfortably. Patient is alert and oriented but extremely hard of hearing. This point patient denies chest pain or shortness breath. Patient denies any nausea vomiting or diarrhea. Patient denies urinary burning or frequency On 07/28/2018 patient is currently resting comfortably. Discussed case with case management. Patient is alert and oriented 3. Patient is adamant that he is going to return home and refusing any rehab at this point. Case management to discuss with son. At this point patient denies chest pain or shortness of breath. Patient denies any urinary burning or frequency patient denies nausea vomiting or diarrhea. Per nursing staff patient has not had any blood in bowel movements. Hemoglobin stable Coumadin will be resumed. On 07/29/2018 patient is resting comfortably in bed. Patient has been up in chair with assistance. Patient had elevated blood pressures this AM. Hydralazine by mouth has been added. At this time patient denies chest pain or shortness breath. Denies diarrhea. Patient denies any urinary burning. On 07/30/2018 patient is alert and oriented 3 he is hard of hearing he is laying comfortably in bed denies any pain or discomfort at this time, hydralazine was added yesterday to regimen blood pressure is still elevated we will increase hydralazine to 25 mg 3 times daily. On 07/31/2018 patient was seen and examined on the fourth floor he is sitting up in a chair he was able to pivot from his bed to the chair with one person help, he is alert and oriented however he is very hard of hearing he denies any pain or discomfort at this time, blood pressure is still elevated dose of hydralazine was increased yesterday to 25 mg 3 times daily, he is also maintained on metoprolol 50 mg twice daily, will continue to monitor and adjust medications as needed. On 08/01/2018 patient is currently alert and oriented 3. She complains of abdominal pain with nausea and diarrhea. Abdomen does appear slightly distended. Computed tomography scan of abdomen with oral contrast has been ordered. Normal saline at 75 has been added. Patient denies chest pain or shortness breath. Patient denies any urinary burning or frequency. On 08/02/2018 patient currently resting comfortably in bed. Patient does state improvement with abdominal pain. Per nursing staff patient has not had anymore diarrhea. Patient denies chest pain or shortness breath. Patient has been able to tolerate diet Objective - Vital Signs Vital signs: Vital Signs Temp 97.8 F 08/02/18 06:44 Pulse 71 08/02/18 06:44 Resp 16 08/02/18 06:44 BP 169/83 08/02/18 06:44 Pulse Ox 94 L 08/02/18 06:44 Intake & Output 08/01/18 08/02/18 08/02/18 18:59 06:59 18:59 Intake Total 600 600 600 Output Total 1 Balance 599 600 600 Weight 83.9 kg 83.5 kg Intake: Oral 600 600 600 Output: Stool 1 Other: Voiding Method Urinal Diaper Incontinent # Voids 2 2 3 # Bowel Movements 2 1 - Exam Head normocephalic Neck supple Lungs clear to auscultation bilaterally no wheezing or crackles Heart regular rate and rhythm S1-S2, no rub or gallop Abdomen is soft and nontender. positive bowel sounds Extremities no edema Neuro alert and orientated to 3 - Labs CBC & Chem 7: 08/02/18 08:35 08/02/18 08:35 Labs: Abnormal Lab Results - Last 24 Hours (Table) 08/01/18 08/01/18 08/02/18 Range/Units 17:00 20:29 08:35 RBC 4.03 L (4.30-5.90) m/uL Hgb 11.0 L (13.0-17.5) gm/dL Hct 35.9 L (39.0-53.0) % MCHC 30.8 L (31.0-37.0) g/dL RDW 16.6 H (11.5-15.5) % Lymphocytes # 0.8 L (1.0-4.8) k/uL PT (9.0-12.0) sec INR (<1.2) Chloride (98-107) mmol/L BUN (9-20) mg/dL Creatinine (0.66-1.25) mg/dL POC Glucose (mg/dL) 124 H 139 H (75-99) mg/dL AST (17-59) U/L Total Protein (6.3-8.2) g/dL Albumin (3.5-5.0) g/dL 08/02/18 08/02/18 Range/Units 08:35 08:35 RBC (4.30-5.90) m/uL Hgb (13.0-17.5) gm/dL Hct (39.0-53.0) % MCHC (31.0-37.0) g/dL RDW (11.5-15.5) % Lymphocytes # (1.0-4.8) k/uL PT 19.1 H (9.0-12.0) sec INR 2.1 H (<1.2) Chloride 109 H (98-107) mmol/L BUN 26 H (9-20) mg/dL Creatinine 1.59 H (0.66-1.25) mg/dL POC Glucose (mg/dL) (75-99) mg/dL AST 15 L (17-59) U/L Total Protein 5.8 L (6.3-8.2) g/dL Albumin 2.5 L (3.5-5.0) g/dL Assessment and Plan Assessment: 1. lower abdominal pain, acute, associated with lactic acidosis. CT abdomen completed showing prominent fluid within mildly thickened mid to lower abdominal small bowel loops been additional liquid stool throughout the colon. Correlate for enteritis and enterocolitis. Lactic acid elevated as high as 10.4. Patient to follow-up outpatient to 3 weeks discussion of possible outpatient with GI for EGD. Patient remains on IV Rocephin and Flagyl. Per infectious disease patient will receive a short course of oral Cipro and Flagyl upon discharge. Today patient reported abdominal pain with nausea and diarrhea. Computed tomography scan with oral contrast only has been ordered. C. diff negative. Computed tomography scan completed showing interval reduction amount of wall thickening of the right colon which may be on the basis of history of previous colitis. Diffuse anasarca. Small amount of ascites also noted. There is also stranding of the mesentery which may been the basis of mesenteric edema. Peritonitis inflammatory changes not excluded. Bilateral pleural effusions and basilar infiltrates. Diffuse atherosclerotic changes mesenteric vasculature correlate clinically. Bladder wall thickening correlate for cystitis. Hyperdensity may represent calculus or hemorrhage. 2. abnormal LFTs with dilated gallbladder. Abdominal ultrasound completed showing large gallbladder mild wall thickening and pericholecystic fluid consistent with cholecystitis. No gallstones identified no dilated ducts. Dr. Shahid for surgical service is consulted. Liver enzymes improving. Continue monitor closely 3. diarrhea with lactic acidosis. C. diff negative 4. Sepsis related to possible ischemic colitis. Initial lactic acid 7.2. Lactic acid increasing to as high as 10.4. Patient received 4 L of IV fluid per critical care. This a.m. lactic acid 5.7. Sepsis protocol initiated. Currently on Zosyn for antibiotic. Repeat lactic acid 1.6. White blood cell 11.4. Per infectious disease patient will require short course of oral antibiotics on discharge 5. history of coronary artery disease 6. congestion heart failure with ejection fraction of 45-50% 7. chronic atrial fibrillation maintained on long-term medical condition with warfarin with therapeutic PT/INR. Coumadin on hold due to GI bleed. INR 3.1. Vit K has been ordered per critical care. Cardiology services consulted. No active bleeding at this time. Coumadin will be resumed. INR 2.1 8. 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 History of dementia 10. History of Hearing 11. 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 History of BPH 13. Debility and impaired performance and functional status second above- mentioned comorbidities 14. pseudotumor within the right lung , patient has fluid within the right fissure that has been visualized on previous CAT scans and chest x-rays. 15. History of essential hypertension. patient had episode of blood pressure in the 200s this a.m. Hydralazine by mouth has been added. Hydralazine had been increased to 3 times a day and Metroprolol 50 mg twice a day for high blood pressure. 16. Per nursing staff concerns for aspiration. NG tube was placed to LIS. X- ray obtained showing overall stable findings, cardiomegaly with central vascular congestion and bilateral perihilar edema and/or infiltrate is small to tiny right greater than left pleural effusions are redemonstrated. Dr. Calzada following for pulmonary and critical care. Patient currently on Rocephin and Flagyl 17. Atrial fibrillation with rapid ventricular response. Patient does have history of A. fib and was on Coumadin.. Patient started on Cardizem drip. Due to possible surgical intervention. Coumadin has been reversed with vitamin K per critical care team. Heart rate currently in the 70s and 80s. No active bleeding reported per nursing staff. Hemoglobin stable. Coumadin will be resumed. 18. Low urine output. Patient was given 4 L of fluid throughout night. Critical care team following. Resolved 19. Acute kidney injury. patient did received fluid resuscitation per sepsis protocol per critical care. Continue to monitor closely. Creatinine improving to 1.59 and bun 26. DVT prophylaxis heparin and GI prophylaxis Protonix Patient refusing any type of rehab at this time. environmental engineering manager following. I performed an examination of the patient and discussed their management with the Nurse Practitioner. I have reviewed the Nurse Practitioner's notes and agree with the documented findings and plan of care
[2018-08-02 17:19] LABS: Glucose,Whole Blood 82 mg/dL (75-99)
[2018-08-02] MEDS: WARFARIN 2.5 MG TAB PO SCH (17:58)
[2018-08-02 21:00] LABS: Glucose,Whole Blood 121 mg/dL (75-99)
[2018-08-02] MEDS: SERTRALINE 50 MG TAB PO SCH (22:11)
--- NOTE | 2018-08-02 22:38 | PN ---
PROGRESS NOTE DATE OF SERVICE: 08/02/2018. REASON FOR FOLLOWUP: 1. Possible ischemic colitis. 2. Right lateral ankle wound. INTERVAL HISTORY: The patient is afebrile, has been breathing comfortably. Denies having any chest pain, shortness of breath or cough. No abdominal pain and no diarrhea per the nurse aide. EXAMINATION: Blood pressure 133/87 with a pulse of 93, temperature 97. He is 94% on room air. General description is an elderly male up in the bed in no distress. Respiratory system unlabored breathing, clear to auscultation anteriorly. Heart S1, S2 regular rate and rhythm. Abdomen soft. No tenderness. Right leg wound currently dressed up. No obvious drainage on the dressing. LABS: Hemoglobin is 11, white count 6.9, BUN of 26, creatinine 1.59. DIAGNOSTIC IMPRESSION AND PLAN: 1. Patient admitted to hospital with sepsis and concern for possible ischemic colitis. The patient is currently being treated with Rocephin and Flagyl, can be transitioned to a short course of oral Ceftin on discharge. 2. Patient with right wound. Local wound care with Aquacel dressing. Continue supportive care. MMODL / IJN: [id number] /
[2018-08-02 23:56] VITALS: RESP 18
[2018-08-03] MEDS: LEVOTHYROXINE 25 MCG TAB PO SCH (06:24)
[2018-08-03 07:16] LABS: Glucose,Whole Blood 90 mg/dL (75-99)
[2018-08-03] MEDS: INSULIN ASPART 100 UNIT/ML 1 ML 10 ML VIAL SQ SCH ×2 (07:39→12:47)
[2018-08-03] MEDS: PANTOPRAZOLE 40 MG TABLET PO SCH (07:40)
[2018-08-03] MEDS: cefTRIAXone 2,000 MG in SODIUM CHLORIDE 0.9% 100 ML IVPB SCH (07:40)
[2018-08-03] MEDS: hydrALAZINE HCL 25 MG TAB PO SCH (07:41)
[2018-08-03] MEDS: METOPROLOL TARTRATE 50 MG TAB PO SCH (07:41)
[2018-08-03] MEDS: metroNIDAZOLE 500 MG TAB PO SCH (07:41)
[2018-08-03] MEDS: HEPARIN SODIUM,PORCINE 5,000 UNIT/ML 1 ML VIAL SQ SCH (07:41)
[2018-08-03 09:07] LABS: Anisocytosis Slight; Basophils % (A) 0 %; Eosinophils # (A) 0.1 k/uL (0-0.7); Eosinophils % (A) 1 %; Hypochromasia Moderate; INR 2.3 (<1.2); Lymphocytes # (A) 0.8 k/uL (1.0-4.8); Lymphocytes % (A) 12 %; MCH 27.4 pg (25.0-35.0); MCHC 30.7 g/dL (31.0-37.0); MCV 89.3 fL (80.0-100.0); Mean Platelet Volume 7.9; Monocytes # (A) 0.4 k/uL (0-1.0); Monocytes % (A) 6 %; Neutrophils # (A) 5.3 k/uL (1.3-7.7); Neutrophils % (A) 80 %; Platelet Count 213 k/uL (150-450); Prothrombin Time 21.2 sec (9.0-12.0); RBC 4.04 m/uL (4.30-5.90); RDW 16.8 % (11.5-15.5); WBC 6.6 k/uL (3.8-10.6)
[2018-08-03 09:36] LABS: Albumin 2.5 g/dL (3.5-5.0); Calcium 8.1 mg/dL (8.4-10.2); Total Bilirubin 0.3 mg/dL (0.2-1.3); Total Protein 5.7 g/dL (6.3-8.2)
[2018-08-03 11:29] LABS: Glucose,Whole Blood 182 mg/dL (75-99)
--- NOTE | 2018-08-03 11:48 | P.DS ---
Providers Date of admission: 07/21/18 15:20 Expected date of discharge: 08/03/18 Attending physician: Nancy Oglesby Consults: 07/21/18 15:39 Consult Physician Urgent Consulting Provider: Kentrell Morris Consult Reason/Comments: Critical care management Do you want consulting provider notified?: Yes 07/22/18 10:01 Consult Physician Stat Consulting Provider: May Shahid Consult Reason/Comments: abdominal pain, lactic acidosis, gi bleed Do you want consulting provider notified?: Yes 07/22/18 13:34 Consult Physician Routine Consulting Provider: Camilla Vogel Consult Reason/Comments: A. fib with RVR Do you want consulting provider notified?: Yes 07/22/18 13:35 Consult Physician Routine Consulting Provider: Raul Olivas Consult Reason/Comments: Ischemic colitis Do you want consulting provider notified?: Yes 07/27/18 10:34 Consult Physician Routine Consulting Provider: Lincoln Barton Consult Reason/Comments: rehab Do you want consulting provider notified?: Yes Primary care physician: Nia [facility] Course: Discharge diagnosis 1. lower abdominal pain, acute, associated with lactic acidosis. CT abdomen completed showing prominent fluid within mildly thickened mid to lower abdominal small bowel loops been additional liquid stool throughout the colon. Correlate for enteritis and enterocolitis. Lactic acid elevated as high as 10.4. Patient to follow-up outpatient to 3 weeks discussion of possible outpatient with GI for EGD. Patient remains on IV Rocephin and Flagyl. Per infectious disease patient will receive a short course of oral Cipro and Flagyl upon discharge. Today patient reported abdominal pain with nausea and diarrhea. Computed tomography scan with oral contrast only has been ordered. C. diff negative. Computed tomography scan completed showing interval reduction amount of wall thickening of the right colon which may be on the basis of history of previous colitis. Diffuse anasarca. Small amount of ascites also noted. There is also stranding of the mesentery which may been the basis of mesenteric edema. Peritonitis inflammatory changes not excluded. Bilateral pleural effusions and basilar infiltrates. Diffuse atherosclerotic changes mesenteric vasculature correlate clinically. Bladder wall thickening correlate for cystitis. Hyperdensity may represent calculus or hemorrhage. Patient denies any GI symptoms at this point. She has been tolerating regular diet. Per nursing staff patient has been having normal bowel movements 2. abnormal LFTs with dilated gallbladder. Abdominal ultrasound completed showing large gallbladder mild wall thickening and pericholecystic fluid consistent with cholecystitis. No gallstones identified no dilated ducts. Dr. Shahid for surgical service is consulted. Liver enzymes improving. Continue monitor closely. Lipitor discontinued upon discharge 3. diarrhea with lactic acidosis. C. diff negative 4. Sepsis related to possible ischemic colitis. Initial lactic acid 7.2. Lactic acid increasing to as high as 10.4. Patient received 4 L of IV fluid per critical care. This a.m. lactic acid 5.7. Sepsis protocol initiated. Currently on Zosyn for antibiotic. Repeat lactic acid 1.6. White blood cell 11.4. Per infectious disease patient will require short course of oral antibiotics on discharge. Discussed case with infectious disease patient will be discharged home on Ceftin and Flagyl for 5 days 5. history of coronary artery disease 6. congestion heart failure with ejection fraction of 45-50% 7. chronic atrial fibrillation maintained on long-term medical condition with warfarin with therapeutic PT/INR. Coumadin on hold due to GI bleed. INR 3.1. Vit K has been ordered per critical care. Cardiology services consulted. No active bleeding at this time. Coumadin will be resumed. INR 2.3. Patient to have PT/INR checked every other day for 10 days due to antibiotic and Coumadin. 8. 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 History of dementia 10. History of Hearing 11. 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 History of BPH 13. Debility and impaired performance and functional status second above- mentioned comorbidities 14. pseudotumor within the right lung , patient has fluid within the right fissure that has been visualized on previous CAT scans and chest x-rays. 15. History of essential hypertension. patient had episode of blood pressure in the 200s this a.m. Hydralazine by mouth has been added. Hydralazine had been increased to 2 times a day and Metroprolol 50 mg twice a day for high blood pressure. Lisinopril has been discontinued due to kidney function. Patient will be DC'd home on hydralazine twice a day of metoprolol. Patient to follow-up closely with PCP 16. Per nursing staff concerns for aspiration. NG tube was placed to LIS. X- ray obtained showing overall stable findings, cardiomegaly with central vascular congestion and bilateral perihilar edema and/or infiltrate is small to tiny right greater than left pleural effusions are redemonstrated. Dr. Calzada following for pulmonary and critical care. Patient currently on Rocephin and Flagyl 17. Atrial fibrillation with rapid ventricular response. Patient does have history of A. fib and was on Coumadin.. Patient started on Cardizem drip. Due to possible surgical intervention. Coumadin has been reversed with vitamin K per critical care team. Heart rate currently in the 70s and 80s. No active bleeding reported per nursing staff. Hemoglobin stable. Coumadin will be resumed. 18. Low urine output. Patient was given 4 L of fluid throughout night. Critical care team following. Resolved 19. Acute kidney injury. patient did received fluid resuscitation per sepsis protocol per critical care. Continue to monitor closely. Creatinine improving to 1.59 and bun 26. Lasix will be reordered but at a decreased dose of 20 mg per day due to peripheral edema. Patient's CMP checked in 4 days and follow-up closely with PCP Hospital course This is an 82-year-old male patient of Dr. kelly. Patient presented to the emergency room with complaints of abdominal pain and diarrhea patient also states he's been having episodes of emesis. Patient has a known past medical history history of atrial fibrillation which she takes Coumadin. Chest pain, heart failure GERD, hyperlipidemia, hypertension and prostate disorder. Patient is extremely hard of hearing and therefore a poor historian. CT of abdomen completed in emergency room showing a small bilateral pleural effusion, borderline cardiomegaly, mild diffuse tenderness Scaccia type II. Correlate for fluid overload state. Partially visualized rounded area in the right mid to lower lung on the first slice this could represent a mass or pseudotumor due to fluid within the minor seizure. Consider initial assessment chest x-ray. Prominent fluid with a mildly thickened mid to lower abdominal small bowel loops additional liquid stool throughout the colon. Correlate for enteritis or enterocolitis. Prostatomegaly. Chest x-ray completed showing masslike areas of consolidation the right greater than left midlung. This was present to some extent on the 11/07/2017 exam making loculated pleural fluid more likely than underlying neoplasm. CT completed showing atrial fibrillation with rapid ventricular response with premature ventricular or aberrantly conducted complexes. Patient was started on Cardizem drip. Initial WBC 15.2. Lactic acid 6.4. Lactic acid increasing to 10.4. Patient received 4 L of IV fluid per critical care team. Repeat lactic acid 5.7. AST 318 ALT 263 and alkaline phosphatase 152. INR is 3.1 patient admitted to the intensive care unit and Dr. Calzada per critical care consulted. Dr. Whaley per GI service is consulted. Dr. Shahid per surgical service is consulted. Per nursing staff patient did have episodes of approximately 150 mL of bloody stool this a.m. Discussed case at bedside with Dr. Calzada per critical care. Concerns for ischemic colitis. Orders placed to reverse Coumadin with vitamin K. Bicarb gtt initiated per critical care. Abdominal x-ray ordered per critical care. Surgical services paged per nursing staff. On 07/23/2018 patient was seen and examined in ICU he is alert and oriented 3 in no apparent distress, he has NG tube in, he is complaining of abdominal pain , he had episodes of bloody diarrhea are clear, he denies any vomiting, he denies any chest pain or shortness of breath no cough and no urinary symptoms. On 07/24/2018 patient was seen and examined in ICU he is more drowsy today, but awake easily and respond to questions abdominal pain has improved, he had greenish color bowel movement without any bleeding, he denies any vomiting there is no fever or chills no headache no chest pain no shortness of breath no cough and no urinary symptoms. 07/25/2018 patient remains in the intensive care unit. Patient is sleepy but arousable. Per nursing staff patient has not had any blood in stool. Patient denies any vomiting or nausea. Denies any urinary symptoms On 07/26/2018 patient has been out of the intensive care unit to [facility] care. Patient is sleepy but arousable. Patient is alert but extremely hard of hearing. At this time patient denies chest pain or shortness of breath. Denies any nausea vomiting or diarrhea. Denies any urinary burning or frequency. On 07/27/2018 patient is currently resting comfortably. Patient is alert and oriented but extremely hard of hearing. This point patient denies chest pain or shortness breath. Patient denies any nausea vomiting or diarrhea. Patient denies urinary burning or frequency On 07/28/2018 patient is currently resting comfortably. Discussed case with case management. Patient is alert and oriented 3. Patient is adamant that he is going to return home and refusing any rehab at this point. Case management to discuss with son. At this point patient denies chest pain or shortness of breath. Patient denies any urinary burning or frequency patient denies nausea vomiting or diarrhea. Per nursing staff patient has not had any blood in bowel movements. Hemoglobin stable Coumadin will be resumed. On 07/29/2018 patient is resting comfortably in bed. Patient has been up in chair with assistance. Patient had elevated blood pressures this AM. Hydralazine by mouth has been added. At this time patient denies chest pain or shortness breath. Denies diarrhea. Patient denies any urinary burning. On 07/30/2018 patient is alert and oriented 3 he is hard of hearing he is laying comfortably in bed denies any pain or discomfort at this time, hydralazine was added yesterday to regimen blood pressure is still elevated we will increase hydralazine to 25 mg 3 times daily. On 07/31/2018 patient was seen and examined on the fourth floor he is sitting up in a chair he was able to pivot from his bed to the chair with one person help, he is alert and oriented however he is very hard of hearing he denies any pain or discomfort at this time, blood pressure is still elevated dose of hydralazine was increased yesterday to 25 mg 3 times daily, he is also maintained on metoprolol 50 mg twice daily, will continue to monitor and adjust medications as needed. On 08/01/2018 patient is currently alert and oriented 3. She complains of abdominal pain with nausea and diarrhea. Abdomen does appear slightly distended. Computed tomography scan of abdomen with oral contrast has been ordered. Normal saline at 75 has been added. Patient denies chest pain or shortness breath. Patient denies any urinary burning or frequency. On 08/02/2018 patient currently resting comfortably in bed. Patient does state improvement with abdominal pain. Per nursing staff patient has not had anymore diarrhea. Patient denies chest pain or shortness breath. Patient has been able to tolerate diet On 08/03/2018 patient is currently resting in bed. Patient is alert and oriented 3. Patient denies any abdominal pain. Denies any nausea vomiting or diarrhea. Patient has been tolerating diet. Per nursing staff patient has been having normal bowel movements. Patient denies chest pain or shortness of breath. Patient denies any urinary burning or frequency. Patient had refused any rehab placement. Patient straight has shown improvement with strength. Patient does have [facility] visiting nurses with a home coordinator. She will be discharged home on Ceftin and Flagyl for per infectious disease. Patient to have INR checked every other day for 10 days due to Coumadin and antibiotic. Scripts have been written for PT/INR checks. CMP also to be checked in 4 days. Patient to follow-up closely with PCP and consulting providers. I performed an examination of the patient and discussed their management with the Nurse Practitioner. I have reviewed the Nurse Practitioner's notes and agree with the documented findings and plan of care Patient Condition at Discharge: Stable Plan - Discharge Summary Discharge Rx Participant: No New Discharge Prescriptions: New Cefuroxime Axetil [Ceftin] 500 mg PO BID 5 Days #10 tab hydrALAZINE HCL [Apresoline] 25 mg PO BID 30 Days #60 tab metroNIDAZOLE [Flagyl] 500 mg PO TID 5 Days #15 tab Furosemide [Lasix] 20 mg PO DAILY #30 tab Continue Warfarin Sodium [Coumadin] 2.5 mg PO DAILY Metoprolol Tartrate [Lopressor] 50 mg PO BID@0900,2100 Sennosides [Senna] 8.6 mg PO BID Aspirin 81 mg PO DAILY Omeprazole 40 mg PO DAILY #14 capsule. Sucralfate [Carafate] 1 gm PO QID Sertraline HCl [Zoloft] 50 mg PO HS Levothyroxine Sodium 25 mcg PO DAILY Discontinued Atorvastatin [Lipitor] 20 mg PO HS@2100 Furosemide [Lasix] 40 mg PO DAILY@0600 Lisinopril [Zestril] 20 mg PO DAILY Discharge Medication List Warfarin Sodium [Coumadin] 2.5 mg PO DAILY 11/30/16 [History] Metoprolol Tartrate [Lopressor] 50 mg PO BID@0900,2100 01/19/17 [History] Aspirin 81 mg PO DAILY 11/05/17 [History] Sennosides [Senna] 8.6 mg PO BID 11/05/17 [History] Omeprazole 40 mg PO DAILY #14 capsule. 06/11/18 [Rx] Levothyroxine Sodium 25 mcg PO DAILY 07/21/18 [History] Sertraline HCl [Zoloft] 50 mg PO HS 07/21/18 [History] Sucralfate [Carafate] 1 gm PO QID 07/21/18 [History] Cefuroxime Axetil [Ceftin] 500 mg PO BID 5 Days #10 tab 08/03/18 [Rx] Furosemide [Lasix] 20 mg PO DAILY #30 tab 08/03/18 [Rx] hydrALAZINE HCL [Apresoline] 25 mg PO BID 30 Days #60 tab 08/03/18 [Rx] metroNIDAZOLE [Flagyl] 500 mg PO TID 5 Days #15 tab 08/03/18 [Rx] Follow up Appointment(s)/Referral(s): Nia Kelly MD [Primary Care Provider] - 1-2 days Leonid Jerome MD [STAFF PHYSICIAN] - 1 Week Sandra Castillo MD [STAFF PHYSICIAN] - 08/01/18 12:00 pm Kentrell Morris MD [STAFF PHYSICIAN] - 1 Week [facility] Visiting Nurse, [NON-STAFF] - 1 Week Ambulatory/Diagnostic Orders: Comprehensive Metabolic Panel [LAB.AMB] Time Frame: 4 Days, Location: None Selected Prothrombin Time INR [LAB.AMB] Time Frame: 2 Days, Location: None Selected Prothrombin Time INR [LAB.AMB] Time Frame: 4 Days, Location: None Selected Prothrombin Time INR [LAB.AMB] Time Frame: 6 Days, Location: None Selected Prothrombin Time INR [LAB.AMB] Time Frame: 8 Days, Location: None Selected Prothrombin Time INR [LAB.AMB] Time Frame: 10 Days, Location: None Selected Patient Instructions/Handouts: Heart Failure (DC), Gastrointestinal Bleeding ( DC), Type 2 Diabetes in Adults: New Diagnosis (DC), Pleural Effusion (DC) Activity/Diet/Wound Care/Special Instructions: Up with assist, fall precautions DNR code status. Patient to have INR drawn every other day for 10 days due to antibiotic with Coumadin. Patient to have [facility] visiting nurses Diet heart healthy Discharge Disposition: HOME WITH HOME HEALTH SERVICES
--- NOTE | 2018-08-03 14:06 | PN ---
PROGRESS NOTE DATE OF SERVICE: 08/03/2018 REASON FOR FOLLOWUP: 1. Possible ischemic colitis. 2. Right lateral ankle wound. INTERVAL HISTORY: The patient is currently afebrile. He is breathing comfortably. Denies having any chest pain or shortness of breath. No cough. Denies any abdominal pain and no pain to the right lateral ankle wound area. PHYSICAL EXAMINATION: Blood pressure is 108/87 with a pulse of 99, temperature 97.8. He is 93% on room air. General description is an elderly male, lying in bed in no distress. RESPIRATORY SYSTEM: Unlabored breathing, clear to auscultation anteriorly. HEART: S1, S2. Regular rate and rhythm. ABDOMEN: Soft, no tenderness. Right leg wound currently dressed up, no obvious drainage on the dressing. LABS: Hemoglobin is 11, white count for 6.6, BUN of 24, creatinine 1.63. DIAGNOSTIC IMPRESSION AND PLAN: 1. Patient in the hospital with sepsis with concern for possible ischemic colitis, being treated medically. Current on a dose of Rocephin and Flagyl. Recommend a short course of oral Ceftin and Flagyl. 2. Patient with right lateral ankle wound with no evidence of any cellulitis. Local wound care with Aquacel Silver dressing. Continue supportive care. MMODL / IJN: [id number] /
[2018-08-03 14:29] VITALS: BP 129/71; PULSE 73; TEMP 98.7
== END 2018-08-03 14:06 | disposition home health service (06) | DRG 871 ==
LOC: EC 11:30 → 6ICU 15:20 → 6SEL 07-25 21:27 → UNDODISIN 07-28 17:09 → 4MS4W 07-29 15:55
PROVIDERS: ADMIT Internal Medicine; ATTEND Internal Medicine
PROC: 02HV33Z Insertion of Infusion Device into Superior Vena Cava, Percutaneous Approach (ICD-10-PCS; principal; 2018-07-22)
DX: A41.9 Sepsis, unspecified organism (principal); K55.039 Acute (reversible) ischemia of large intestine, extent unspecified; G93.41 Metabolic encephalopathy; E87.2 Acidosis; I50.22 Chronic systolic (congestive) heart failure; N17.9 Acute kidney failure, unspecified; I11.0 Hypertensive heart disease with heart failure; I48.2 Chronic atrial fibrillation; J44.9 Chronic obstructive pulmonary disease, unspecified; K81.1 Chronic cholecystitis; S91.001A Unspecified open wound, right ankle, initial encounter; E11.9 Type 2 diabetes mellitus without complications; F03.90 Unspecified dementia, unspecified severity, without behavioral disturbance, psychotic disturbance, mood disturbance, and anxiety; I35.8 Other nonrheumatic aortic valve disorders; E03.9 Hypothyroidism, unspecified; E78.5 Hyperlipidemia, unspecified; G47.33 Obstructive sleep apnea (adult) (pediatric); H91.8X3 Other specified hearing loss, bilateral; I25.10 Atherosclerotic heart disease of native coronary artery without angina pectoris; I25.2 Old myocardial infarction; N40.1 Benign prostatic hyperplasia with lower urinary tract symptoms; N39.498 Other specified urinary incontinence; I49.3 Ventricular premature depolarization; K21.9 Gastro-esophageal reflux disease without esophagitis; M19.90 Unspecified osteoarthritis, unspecified site; F32.9 Major depressive disorder, single episode, unspecified; R74.8 Abnormal levels of other serum enzymes; F41.9 Anxiety disorder, unspecified; J98.9 Respiratory disorder, unspecified; R79.1 Abnormal coagulation profile; Z79.01 Long term (current) use of anticoagulants; Z79.82 Long term (current) use of aspirin; Z79.899 Other long term (current) drug therapy; Z96.653 Presence of artificial knee joint, bilateral; Z96.612 Presence of left artificial shoulder joint; Z96.611 Presence of right artificial shoulder joint; Z89.512 Acquired absence of left leg below knee; Z85.46 Personal history of malignant neoplasm of prostate; Z87.891 Personal history of nicotine dependence
CPT/HCPCS: 36415; 51701; 71045; 71046; 74018; 74176; 74177; 76705; 78227; 80053; 81001; 82150; 82272; 83036; 83605; 83690; 83735; 84100; 84132; 85025; 85027; 85610; 85730; 87040; 87086; 87324; 93005; 96361; 96365; 96366; 99291

== ENCOUNTER 2018-08-09 10:19 | Inpatient (IN) | payer MEDICARE, BC ==
--- NOTE | 2018-08-09 10:56 | ED ---
General Adult HPI - General Chief complaint: Shortness of Breath Stated complaint: fluid on lungs Time Seen by Provider: 08/09/18 10:19 Source: patient, family, RN notes reviewed Mode of arrival: wheelchair Limitations: no limitations - History of Present Illness Initial comments: This is an 83-year-old male who was just recently in the hospital for sepsis according to the family. Patient states he was discharged home on Wednesday. Patient states since that time he's had shortness of breath and it hasn't got any better. The visiting nurse came over today and suggested that the patient go to the hospital because he has crackles bilaterally in his lungs. Family also states he gets quite a bit a few accumulation as he lays in bed in his lower back and left flank. Patient denies any chest pain or palpitations. Patient still complains of some abdominal pain which is the reason he originally came in last time. Patient denies any fever or chills. Patient denies any recent injury. Patient does complain of increased swelling in his right leg. Patient has a prosthetic device on his left leg. - Related Data Home Medications Medication Instructions Recorded Confirmed Metoprolol Tartrate [Lopressor] 50 mg PO BID@0900,2100 01/19/17 08/09/18 Aspirin 81 mg PO DAILY 11/05/17 08/09/18 Levothyroxine Sodium 25 mcg PO DAILY 07/21/18 08/09/18 Sertraline HCl [Zoloft] 50 mg PO HS 07/21/18 08/09/18 Sucralfate [Carafate] 1 gm PO QID 07/21/18 08/09/18 Medihoney 1 applic TOPICAL DAILY PRN 08/09/18 08/09/18 Omeprazole 20 mg PO BID 08/09/18 08/09/18 Sennosides [Senna] 8.6 mg PO DAILY 08/09/18 08/09/18 Tetrahydrozoline 0.05% Ophth 1 drop BOTH EYES DAILY PRN 08/09/18 08/09/18 [Visine Eye Drops] Previous Rx's Medication Instructions Recorded Cefuroxime Axetil [Ceftin] 500 mg PO BID 5 Days #10 tab 08/03/18 Furosemide [Lasix] 20 mg PO DAILY #30 tab 08/03/18 hydrALAZINE HCL [Apresoline] 25 mg PO BID 30 Days #60 tab 08/03/18 Allergies Allergy/AdvReac Type Severity Reaction Status Date / Time No Known Allergies Allergy Verified 08/09/18 11:37 Review of Systems ROS Statement: Those systems with pertinent positive or pertinent negative responses have been documented in the HPI. ROS Other: All systems not noted in ROS Statement are negative. Past Medical History Past Medical History: Atrial Fibrillation, Coronary Artery Disease (CAD), Chest Pain / Angina, Heart Failure, COPD, Diabetes Mellitus, GERD/Reflux, Hearing Disorder / Deafness, Hyperlipidemia, Hypertension, Myocardial Infarction (MD), Osteoarthritis (OA), Pneumonia, Prostate Disorder, Sleep Apnea/CPAP/BIPAP, Thyroid Disorder Additional Past Medical History / Comment(s): Ejection fraction 45-50%, moderate to severe aortic valve sclerosis, mild AF, mild AR, moderate concentric left ventricular hypertrophy/hypertensive heart disease, dementia, CINTHIA, hypothyroidism, BPH, very [place] (doesn't have hearing aides - communicate through writing when possible), BKA r/t infection/wound. 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 2016 Past Anesthesia/Blood Transfusion Reactions: No Reported Reaction Past Psychological History: Anxiety, Depression Smoking Status: Former smoker Past Alcohol Use History: None Reported Past Drug Use History: None Reported - Past Family History Father History Unknown: Yes Mother History Unknown: Yes General Exam - General Exam Comments Initial Comments: GENERAL: Patient is well-developed and well-nourished. Patient is nontoxic and well- hydrated and is in mild distress. ENT: Neck is soft and supple. No significant lymphadenopathy is noted. Oropharynx is clear. Moist mucous membranes. Neck has full range of motion without eliciting any pain. EYES: The sclera were anicteric and conjunctiva were pink and moist. Extraocular movements were intact and pupils were equal round and reactive to light. Eyelids were unremarkable. PULMONARY: Patient has crackles in both bases CARDIOVASCULAR: Patient's heart rate is irregular ABDOMEN: Soft and nontender with normal bowel sounds. No palpable organomegaly was noted. There is no palpable pulsatile mass. SKIN: Skin is clear with no lesions or rashes and otherwise unremarkable. NEUROLOGIC: Patient is alert and oriented x3. Cranial nerves II through XII are grossly intact. Motor and sensory are also intact. Normal speech, volume and content. Symmetrical smile. MUSCULOSKELETAL: Patient has a prosthetic device in place of the left leg. Patient's right leg is edematous 2+. LYMPHATICS: No significant lymphadenopathy is noted PSYCHIATRIC: Normal psychiatric evaluation. Normal interpersonal interactions appears functionally intact in deals appropriately with others. No signs of depression. No signs of anxiety. Limitations: no limitations Course Vital Signs 08/09/18 08/09/18 08/09/18 10:28 11:02 12:04 Temperature 97.4 F L Pulse Rate 58 L 87 81 Respiratory 20 18 18 Rate Blood Pressure 136/79 157/86 176/112 O2 Sat by Pulse 90 L 99 98 Oximetry Medical Decision Making - Medical Decision Making EKG shows atrial fibrillation 96 bpm WV interval is 94 QRS is 368 QTC is 464 patient's EKG shows no ST segment elevation. Chest x-ray shows pulmonary edema patient received some Lasix in the emergency department. Chest x-ray shows pulmonary edema. I spoke with Dr. Oglesby he wanted the patient admitted and I consult to Dr. Matias because she saw the patient before and since he was having some mild abdominal pain with an elevated lactic acid she was consult. I wrote admitting orders. - Lab Data Result diagrams: 08/09/18 11:00 08/09/18 11:00 Lab Results 08/09/18 08/09/18 08/09/18 Range/Units 11:00 11:00 11:00 WBC 5.5 (3.8-10.6) k/uL RBC 3.95 L (4.30-5.90) m/uL Hgb 11.2 L (13.0-17.5) gm/dL Hct 34.9 L (39.0-53.0) % MCV 88.2 (80.0-100.0) fL MCH 28.4 (25.0-35.0) pg MCHC 32.2 (31.0-37.0) g/dL RDW 17.7 H (11.5-15.5) % Plt Count 207 (150-450) k/uL Neutrophils % 80 % Lymphocytes % 13 % Monocytes % 5 % Eosinophils % 1 % Basophils % 0 % Neutrophils # 4.4 (1.3-7.7) k/uL Lymphocytes # 0.7 L (1.0-4.8) k/uL Monocytes # 0.3 (0-1.0) k/uL Eosinophils # 0.1 (0-0.7) k/uL Basophils # 0.0 (0-0.2) k/uL Hypochromasia Moderate Anisocytosis Slight PT (9.0-12.0) sec INR (<1.2) APTT (22.0-30.0) sec Sodium 139 (137-145) mmol/L Potassium 4.1 (3.5-5.1) mmol/L Chloride 107 (98-107) mmol/L Carbon Dioxide 21 L (22-30) mmol/L Anion Gap 11 mmol/L BUN 32 H (9-20) mg/dL Creatinine 1.46 H (0.66-1.25) mg/dL Est GFR (CKD-EPI)AfAm 51 (>60 ml/min/1.73 sqM) Est GFR (CKD-EPI)NonAf 45 (>60 ml/min/1.73 sqM) Glucose 152 H (74-99) mg/dL Plasma Lactic Acid Néstor (0.7-2.0) mmol/L Calcium 8.3 L (8.4-10.2) mg/dL Magnesium 1.6 (1.6-2.3) mg/dL Total Bilirubin 0.7 (0.2-1.3) mg/dL AST 23 (17-59) U/L ALT 24 (21-72) U/L Alkaline Phosphatase 81 (38-126) U/L Total Creatine Kinase 29 L (55-170) U/L CK-MB (CK-2) 2.8 H (0.0-2.4) ng/mL CK-MB (CK-2) Rel Index 9.7 Troponin I 0.085 H* (0.000-0.034) ng/mL Total Protein 6.6 (6.3-8.2) g/dL Albumin 2.8 L (3.5-5.0) g/dL 08/09/18 08/09/18 Range/Units 11:00 11:00 WBC (3.8-10.6) k/uL RBC (4.30-5.90) m/uL Hgb (13.0-17.5) gm/dL Hct (39.0-53.0) % MCV (80.0-100.0) fL MCH (25.0-35.0) pg MCHC (31.0-37.0) g/dL RDW (11.5-15.5) % Plt Count (150-450) k/uL Neutrophils % % Lymphocytes % % Monocytes % % Eosinophils % % Basophils % % Neutrophils # (1.3-7.7) k/uL Lymphocytes # (1.0-4.8) k/uL Monocytes # (0-1.0) k/uL Eosinophils # (0-0.7) k/uL Basophils # (0-0.2) k/uL Hypochromasia Anisocytosis PT 24.0 H (9.0-12.0) sec INR 2.7 H (<1.2) APTT 33.0 H (22.0-30.0) sec Sodium (137-145) mmol/L Potassium (3.5-5.1) mmol/L Chloride (98-107) mmol/L Carbon Dioxide (22-30) mmol/L Anion Gap mmol/L BUN (9-20) mg/dL Creatinine (0.66-1.25) mg/dL Est GFR (CKD-EPI)AfAm (>60 ml/min/1.73 sqM) Est GFR (CKD-EPI)NonAf (>60 ml/min/1.73 sqM) Glucose (74-99) mg/dL Plasma Lactic Acid Néstor 3.4 H* (0.7-2.0) mmol/L Calcium (8.4-10.2) mg/dL Magnesium (1.6-2.3) mg/dL Total Bilirubin (0.2-1.3) mg/dL AST (17-59) U/L ALT (21-72) U/L Alkaline Phosphatase (38-126) U/L Total Creatine Kinase (55-170) U/L CK-MB (CK-2) (0.0-2.4) ng/mL CK-MB (CK-2) Rel Index Troponin I (0.000-0.034) ng/mL Total Protein (6.3-8.2) g/dL Albumin (3.5-5.0) g/dL Disposition Clinical Impression: Pulmonary edema, Abdominal pain Disposition: ADMITTED IP TO THIS HOSP Referrals: Alex Sanchez MD [Primary Care Provider] - 1-2 days Time of Disposition: 12:25
[2018-08-09 11:26] LABS: Anisocytosis Slight; Basophils % (A) 0 %; Eosinophils # (A) 0.1 k/uL (0-0.7); Eosinophils % (A) 1 %; HCT 34.9 % (39.0-53.0); HGB 11.2 gm/dL (13.0-17.5); Hypochromasia Moderate; Lymphocytes # (A) 0.7 k/uL (1.0-4.8); Lymphocytes % (A) 13 %; MCH 28.4 pg (25.0-35.0); MCHC 32.2 g/dL (31.0-37.0); MCV 88.2 fL (80.0-100.0); Mean Platelet Volume 8.6; Monocytes # (A) 0.3 k/uL (0-1.0); Monocytes % (A) 5 %; Neutrophils # (A) 4.4 k/uL (1.3-7.7); Neutrophils % (A) 80 %; Platelet Count 207 k/uL (150-450); RBC 3.95 m/uL (4.30-5.90); RDW 17.7 % (11.5-15.5); WBC 5.5 k/uL (3.8-10.6)
--- NOTE | 2018-08-09 11:33 | XR ---
EXAMINATION TYPE: XR chest 2V DATE OF EXAM: 08/09/2018 COMPARISON: 07/23/2018 HISTORY: 83-year-old male difficulty breathing, shortness of breath TECHNIQUE: Frontal and lateral views FINDINGS: Right total shoulder arthroplasty is partially visualized. Heart mildly enlarged. Diffuse interstitia l densities and confluent airspace opacities. Small bilateral pleural effusions. Opacities have a shelby ewhat masslike appearance at the midlung levels and should be reassessed at follow-up. IMPRESSION: 1. Correlate for CHF with interstitial pulmonary edema. 2. Masslike areas of opacity at the midlung levels could represent more confluent pulmonary edema. Fo llow-up after treatment to ensure clearance and exclude underlying mass. 3. Small pleural effusions with adjacent atelectasis and/or consolidation.
[2018-08-09 11:35] LABS: Albumin 2.8 g/dL (3.5-5.0); Calcium 8.3 mg/dL (8.4-10.2); INR 2.7 (<1.2); Magnesium 1.6 mg/dL (1.6-2.3); Potassium 4.1 mmol/L (3.5-5.1); Total Bilirubin 0.7 mg/dL (0.2-1.3); Total Protein 6.6 g/dL (6.3-8.2)
[2018-08-09] MEDS ORDERED: FUROSEMIDE 10 MG/ML 4 ML VIAL IV STA (11:42)
[2018-08-09 12:06] LABS: Creatine Kinase MB 2.8 ng/mL (0.0-2.4)
[2018-08-09 12:14] LABS: Troponin I 0.085 ng/mL (0.000-0.034)
[2018-08-09] MEDS ORDERED: FUROSEMIDE 10 MG/ML 4 ML VIAL IV SCH (12:30)
[2018-08-09] MEDS ORDERED: MEDIHONEY TOPICAL PRN (13:39)
[2018-08-09] MEDS ORDERED: TETRAHYDROZOLINE 0.05% OPHTH DROPS 15 ML BTL BOTH EYES PRN (13:39)
[2018-08-09] MEDS ORDERED: hydrALAZINE HCL 25 MG TAB PO SCH (13:45)
--- NOTE | 2018-08-09 14:12 | P.HPIM ---
History of Present Illness H&P Date: 08/09/18 Chief Complaint: Shortness of breath and abdominal discomfort This is a 83-year-old male with a recent prolonged hospitalization earlier in July for sepsis with possible ischemic colitis. Patient completed a course antibiotics as of yesterday with Ceftin and Flagyl. Her patient's caregivers patient has been more short of breath especially with activity. They 've noted significant right lower extremity edema and edema in the back as well. Patient also started complaining of abdominal pain. No nausea or vomiting. Decreased appetite. Having small bowel movements and constipation. Patient was brought into the emergency room for further evaluation and treatment for congestive heart failure exacerbation. BNP was 84,500. Chest x- ray reports to correlate for CHF with interstitial pulmonary edema and mass like area of opacity in the right mid lung. Patient started on IV Lasix. Also note her caregivers that Lasix had been decreased from 40 mg daily down to 20 mg daily. Patient did have some acute kidney injury on his previous hospitalization in Lasix dose was adjusted. Patient also has a known history of chronic atrial fibrillation in which she is anticoagulated with Coumadin, COPD, diabetes mellitus, GERD, hyperlipidemia, hypertension, myocardial infarction, obstructive sleep apnea, congestive heart failure with an EF of 45- 50%. On admission patient also had elevated lactic acid of 3.4 troponin elevated at 0.085 creatinine 1.46. Pulmonary, cardiology and surgical consults have been placed. Patient has had abdominal pain in the center of his abdomen similar to his last admission. Patient is hard of hearing and most of history was obtained from the caregivers. Review of Systems Please refer to HPI otherwise unremarkable Past Medical History Past Medical History: Atrial Fibrillation, Coronary Artery Disease (CAD), Chest Pain / Angina, Heart Failure, COPD, Diabetes Mellitus, GERD/Reflux, Hearing Disorder / Deafness, Hyperlipidemia, Hypertension, Myocardial Infarction (DC), Osteoarthritis (OA), Pneumonia, Prostate Disorder, Sleep Apnea/CPAP/BIPAP, Thyroid Disorder Additional Past Medical History / Comment(s): Ejection fraction 45-50%, moderate to severe aortic valve sclerosis, mild AF, mild AR, moderate concentric left ventricular hypertrophy/hypertensive heart disease, dementia, CINTHIA, hypothyroidism, BPH, very [place] (doesn't have hearing aides - communicate through writing when possible), BKA r/t infection/wound. 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 2016 Past Anesthesia/Blood Transfusion Reactions: No Reported Reaction Past Psychological History: Anxiety, Depression Smoking Status: Former smoker Past Alcohol Use History: None Reported Past Drug Use History: None Reported - Past Family History Father History Unknown: Yes Mother History Unknown: Yes Medications and Allergies Home Medications Medication Instructions Recorded Confirmed Type Metoprolol Tartrate [Lopressor] 50 mg PO BID@0900,2100 01/19/17 08/09/18 History Aspirin 81 mg PO DAILY 11/05/17 08/09/18 History Levothyroxine Sodium 25 mcg PO DAILY 07/21/18 08/09/18 History Sertraline HCl [Zoloft] 50 mg PO HS 07/21/18 08/09/18 History Sucralfate [Carafate] 1 gm PO QID 07/21/18 08/09/18 History Cefuroxime Axetil [Ceftin] 500 mg PO BID 5 Days #10 tab 08/03/18 08/09/18 Rx Furosemide [Lasix] 20 mg PO DAILY #30 tab 08/03/18 08/09/18 Rx hydrALAZINE HCL [Apresoline] 25 mg PO BID 30 Days #60 tab 08/03/18 08/09/18 Rx Medihoney 1 applic TOPICAL DAILY PRN 08/09/18 08/09/18 History Omeprazole 20 mg PO BID 08/09/18 08/09/18 History Sennosides [Senna] 8.6 mg PO DAILY 08/09/18 08/09/18 History Tetrahydrozoline 0.05% Ophth 1 drop BOTH EYES DAILY PRN 08/09/18 08/09/18 History [Visine Eye Drops] Allergies Allergy/AdvReac Type Severity Reaction Status Date / Time No Known Allergies Allergy Verified 08/09/18 11:37 Physical Exam Vitals: Vital Signs Temp Pulse Resp BP Pulse Ox 08/09/18 13:06 97.6 F 86 18 167/83 97 08/09/18 12:04 81 18 176/112 98 08/09/18 11:02 87 18 157/86 99 08/09/18 10:28 97.4 F L 58 L 20 136/79 90 L Intake and Output 08/08/18 08/09/18 08/09/18 22:59 06:59 14:59 Output Total 150 Balance -150 Output: Urine 150 Other: Weight 72.121 kg Head normocephalic Neck supple Lungs diminished at bases bilaterally Heart regular rate and rhythm S1-S2, no rub or gallop Abdomen is soft nontender nondistended positive bowel sounds no hepatosplenomegaly Extremities +2 edema right lower extremity fluid blister that has opened on right tibia. Right below the knee amputation Neuro alert and orientated to 3 hard of hearing Results CBC & Chem 7: 08/09/18 11:00 08/09/18 11:00 Labs: Abnormal Lab Results - Last 24 Hours (Table) 08/09/18 08/09/18 08/09/18 Range/Units 11:00 11:00 11:00 RBC 3.95 L (4.30-5.90) m/uL Hgb 11.2 L (13.0-17.5) gm/dL Hct 34.9 L (39.0-53.0) % RDW 17.7 H (11.5-15.5) % Lymphocytes # 0.7 L (1.0-4.8) k/uL PT (9.0-12.0) sec INR (<1.2) APTT (22.0-30.0) sec Carbon Dioxide 21 L (22-30) mmol/L BUN 32 H (9-20) mg/dL Creatinine 1.46 H (0.66-1.25) mg/dL Glucose 152 H (74-99) mg/dL Plasma Lactic Acid Néstor (0.7-2.0) mmol/L Calcium 8.3 L (8.4-10.2) mg/dL Total Creatine Kinase 29 L (55-170) U/L CK-MB (CK-2) 2.8 H (0.0-2.4) ng/mL Troponin I 0.085 H* (0.000-0.034) ng/mL Albumin 2.8 L (3.5-5.0) g/dL 08/09/18 08/09/18 Range/Units 11:00 11:00 RBC (4.30-5.90) m/uL Hgb (13.0-17.5) gm/dL Hct (39.0-53.0) % RDW (11.5-15.5) % Lymphocytes # (1.0-4.8) k/uL PT 24.0 H (9.0-12.0) sec INR 2.7 H (<1.2) APTT 33.0 H (22.0-30.0) sec Carbon Dioxide (22-30) mmol/L BUN (9-20) mg/dL Creatinine (0.66-1.25) mg/dL Glucose (74-99) mg/dL Plasma Lactic Acid Néstor 3.4 H* (0.7-2.0) mmol/L Calcium (8.4-10.2) mg/dL Total Creatine Kinase (55-170) U/L CK-MB (CK-2) (0.0-2.4) ng/mL Troponin I (0.000-0.034) ng/mL Albumin (3.5-5.0) g/dL Assessment and Plan Assessment: 1. Shortness of breath with lower extremity edema likely secondary to an acute CHF exacerbation. Check 2-D echo. Continue IV Lasix. Consult cardiology 2. Abdominal pain with recent admission with sepsis and colitis. Patient completed antibiotic course. Surgical consult placed. Check computed tomography scan of the abdomen and pelvis with oral contrast 3. Acute kidney injury: Kidney functions are improving after recent admission. Creatinine is at 1.46. Creatinine at discharge is 1.63. Continue to monitor closely while on IV Lasix. Consult nephrology 4. Elevated lactic acid level. Repeat in a.m. 5. Chronic atrial fibrillation anticoagulated with Coumadin INR 2.7. Give Coumadin 2 mg tonight check PT/INR in a.m. 6. Elevated troponin consult cardiology. Continue monitor cardiac enzymes 7. Severe protein calorie malnutrition: Add Glucerna shakes 8. Possible diabetes mellitus: add sliding scale coverage and check A1c 9. Masslike area in mid lung noted on chest x-ray. Consult pulmonary service. 10. Hypothyroidism continue Synthroid 11. Hypomagnesemia give magnesium supplement. Repeat magnesium level GI prophylaxis Protonix and DVT prophylaxis Coumadin Time with Patient: Greater than 30 (Greater than 60% of the total time spent in counseling and coordination of care.I performed an examination of the patient and discussed their management with the physician Director Product. I have reviewed the Physician Director Product's notes and agree with the documented findings and plan of care)
[2018-08-09] MEDS ORDERED: IOPAMIDOL-300 CONTRAST 30 ML VIAL (ORAL USE) PO PRN (14:14)
[2018-08-09] MEDS ORDERED: MAGNESIUM SULFATE-D5W PMX 1 GM in DEXTROSE/WATER 1 100ML.BAG IVPB ONE (15:00)
--- NOTE | 2018-08-09 16:50 | CT ---
EXAMINATION TYPE: CT abdomen pelvis wo con DATE OF EXAM: 08/09/2018 COMPARISON: CT 08/01/1980 HISTORY: Abdominal pain. CT DLP: 786.2 mGycm Automated exposure control for dose reduction was used. TECHNIQUE: Helical acquisition of images was performed from the lung bases through the pelvis. FINDINGS: Within the limits of noncontrast CT, the following observations are made: LUNG BASES: There are bilateral pleural effusions, and on the right and relatively mild on the left. There is associated bibasilar partial lower lobe airlessness and particularly so on the right. These changes are similar to the prior study. Also unchanged are the following findings: Moderate cardiomegaly. No pericardial effusion. Extensive coronary and aortic intimal calcifications noted. LIVER/GB: No significant abnormality is appreciated. PANCREAS: No significant abnormality is seen. SPLEEN: No significant abnormality is seen. ADRENALS: No significant abnormality is seen. KIDNEYS AND URETERS: No acute process. ADENOPATHY: None visualized. OSSEOUS STRUCTURES: No focal findings. BOWEL: There is no bowel obstruction or pneumoperitoneum or pneumatosis. However, there is interval development of right inguinal hernia noted, consisting of the cecum. This appears to be an indirect i nguinal hernia with hernia appearing to pass to the internal inguinal ring, down the inguinal canal. This hernia may be incarcerated, clinical delineation. This hernia does not appear spiculated. Mesent ilana and mesocolon unremarkable. No mural thickening. URINARY BLADDER: Bladder wall is mildly thickened and there is hyperdensity in the osteopenia bladder which could represent stone or hemorrhage. Prostate is enlarged. VASCULATURE: Extensive atherosclerotic change including the mesenteric blood vessels. OTHER: CC and widespread subcutaneous edematous changes are redemonstrated. Scant volume of peritonea l fluid appreciated. IMPRESSION: Interval development of right inguinal hernia.
[2018-08-09 16:54] LABS: Glucose,Whole Blood 146 mg/dL (75-99)
[2018-08-09] MEDS: INSULIN ASPART 100 UNIT/ML 1 ML 10 ML VIAL SQ SCH ×2 (17:17→21:11)
[2018-08-09] MEDS: LEVOTHYROXINE 25 MCG TAB PO SCH (17:18)
[2018-08-09] MEDS: SUCRALFATE 1 GM TAB PO SCH ×2 (17:18→20:07)
[2018-08-09] MEDS: PANTOPRAZOLE 40 MG TABLET PO SCH (17:18)
[2018-08-09] MEDS: WARFARIN 2 MG TAB PO ONE ×2 (17:19→18:23)
[2018-08-09] MEDS: hydrALAZINE HCL 50 MG TAB PO SCH ×2 (18:08→20:07)
[2018-08-09] MEDS: NITROGLYCERIN OINT 1 INCH/GM PACKET TOPICAL SCH ×3 (18:08→20:07)
[2018-08-09] MEDS ORDERED: HYDROmorphone 1 MG/ML 1 ML SYRINGE IVP PRN (19:09)
[2018-08-09] MEDS ORDERED: ONDANSETRON 4 MG/2 ML VIAL IVP PRN (19:11)
[2018-08-09] MEDS ORDERED: PHYTONADIONE 10 MG in SODIUM CHLORIDE 0.9% 50 ML IVPB STA (19:12)
--- NOTE | 2018-08-09 19:15 | ECHOF ---
Referral Reason:Check EF MEASUREMENTS -------- HEIGHT: 182.9 cm WEIGHT: 72.1 kg BP: RVIDd: 2.0 cm (< 3.3) IVSd: 1.2 cm (0.6 - 1.1) LVIDd: 5.4 cm (3.9 - 5.3) LVPWd: 1.5 cm (0.6 - 1.1) IVSs: 1.6 cm LVIDs: 4.7 cm LVPWs: 1.3 cm Ao Diam: 3.8 cm (2.0 - 3.7) AV Cusp: 0.9 cm (1.5 - 2.6) LA Diam: 4.2 cm (2.7 - 3.8) MV EXCURSION: 22.907 mm (> 18.000) MV EF SLOPE: 113 mm/s (70 - 150) EPSS: 0.8 cm AV maxP.44 mmHg AV meanP.59 mmHg AR PHT: 297 ms RAP: 5.00 mmHg RVSP: 89.17 mmHg FINDINGS -------- Atrial fibrillation. This was a technically good study. There is mild concentric left ventricular hypertrophy. There is severe global hypokinesis of LV . Overall left ventricular systolic function is severely impaired with, an EF between 20 - 25 %. The right ventricle is normal in size and function. The left atrium is mildly dilated. The right atrium is normal in size. Aortic valve is trileaflet and is severely thickened. There is mild aortic regurgitation. There i s moderate aortic stenosis present. Peak/mean gradient across the Aortic Valve is 40.44mmHg / 22.59 mmHg. Mild mitral annular calcification present. Severe mitral regurgitation is present. Severe tricuspid regurgitation present. There is severe pulmonary hypertension. The right ventric ular systolic pressure, as measured by Doppler, is 89.17mmHg. Moderate pulmonic regurgitation. The aortic root is mildy dilated. There is a trivial pericardial effusion present. Small Pleural Effusion. CONCLUSIONS -------- 1. Atrial fibrillation. 2. This was a technically good study. 3. There is mild concentric left ventricular hypertrophy. 4. There is severe global hypokinesis of LV . 5. Overall left ventricular systolic function is severely impaired with, an EF between 20 - 25 %. 6. The left atrium is mildly dilated. 7. Aortic valve is trileaflet and is severely thickened. 8. There is mild aortic regurgitation. 9. There is moderate aortic stenosis present. 10. Peak/mean gradient across the Aortic Valve is 40.44mmHg / 22.59mmHg. 11. Mild mitral annular calcification present. 12. Severe mitral regurgitation is present. 13. Severe tricuspid regurgitation present. 14. There is severe pulmonary hypertension. 15. Moderate pulmonic regurgitation. 16. The aortic root is mildy dilated. 17. There is a trivial pericardial effusion present. 18. Small Pleural Effusion. EXTENSION SERVICE SUPERVISOR: Day Saunders RDCS
[2018-08-09] MEDS: SODIUM CHLORIDE 0.9% 1,000 ML IV SCH (19:46)
--- NOTE | 2018-08-09 19:47 | CONS ---
CONSULTATION CHIEF COMPLAINT: Shortness of breath. Hood is an 83-year-old gentleman with a history of complex and multiple medical problems, including atrial fibrillation, coronary artery disease, diabetes, COPD, congestive heart failure, hypertension, dyslipidemia, episodes of pneumonia, who presented to hospital with shortness of breath. He describes mild to moderate intensity of shortness of breath that came on with activity. He also has lower extremity edema involving the right leg with changes of cellulitis. He had amputation of the left leg. On his initial presentation, his chest x-ray showed pulmonary edema and the BNP was elevated. The patient's clinical presentation is consistent with acute exacerbation of chronic systolic heart failure. Patient used to be on Lasix, and the dose had recently been decreased to 20 mg from 40 mg. Patient was started on IV Lasix. At the time of my evaluation, his symptoms seem to be improving. Patient had lactic acidosis on his initial presentation. Troponin is mildly elevated at 0.085 and creatinine is 1.46. PAST MEDICAL HISTORY: 1. Congestive heart failure. 2. Coronary artery disease. 3. Chronic atrial fibrillation. 4. COPD. 5. Aortic regurgitation. 6. Hypothyroidism. 7. BPH. PAST SURGICAL HISTORY: 1. Bilateral knee replacement. 2. Left below-knee amputation. 3. Rotator cuff surgery. ALLERGIES: As charted. FAMILY HISTORY: Negative for premature coronary artery disease. SOCIAL HISTORY: He denies current smoking, EtOH abuse or drug abuse. MEDICATIONS AT HOME: 1. Lopressor 50 b.i.d. 2. Aspirin. 3. Levothyroxine. 4. Zoloft. 5. Ceftin. 6. Lasix. 7. Hydralazine. 8. Omeprazole. 9. Senna. REVIEW OF SYSTEMS: HEENT is unremarkable. CARDIAC: As described above. RESPIRATORY: As described above. GI: Negative. GENITOURINARY: Negative. ALLERGY/IMMUNOLOGY: Negative. SKIN: Negative. MUSCULOSKELETAL: Significant for left below-knee amputation. Rest of the system review is not relevant. PHYSICAL EXAMINATION: Comfortable at rest. Afebrile. Heart rate is 70 beats per minute. Blood pressure is 159/96. Respiratory rate is 18. Chest exam reveals occasional crackles and diminished air entry at the bases. Heart exam reveals first and second heart sounds, irregular rhythm and a systolic murmur at the left lower sternal border. Abdomen is soft. Examination of the extremities reveals pitting edema over the right leg with cellulitis changes. The patient had an echocardiogram in October of 2017 that showed an ejection fraction of 45% to 50%, mild aortic regurgitation, mild aortic stenosis, moderate tricuspid regurgitation. LABS: Hemoglobin is 11.2. INR is 2.7. Potassium is 4.1, creatinine 1.4. Troponin is 0.085. BNP is elevated. ASSESSMENT: 1. Acute exacerbation of chronic systolic heart failure. 2. Chronic atrial fibrillation with controlled ventricular rate. 3. Uncontrolled hypertension. 4. Elevated troponins. PLAN: I believe troponin elevation is probably related to elevated creatinine. He certainly is in congestive heart failure. I will treat him with intravenous Lasix, continue the beta blockers. Will treat him with hydralazine and nitrates. Increase the dose of hydralazine to better control the blood pressure. Will review the echocardiogram once the results are available. KEYANA / MONICA: [id number] /
[2018-08-09] MEDS: METOPROLOL TARTRATE 50 MG TAB PO SCH (20:07)
[2018-08-09] MEDS: SERTRALINE 50 MG TAB PO SCH (20:07)
[2018-08-09] MEDS: FUROSEMIDE 10 MG/ML 4 ML VIAL IV SCH (20:12)
[2018-08-09 20:47] LABS: Glucose,Whole Blood 120 mg/dL (75-99)
[2018-08-10] MEDS: LEVOTHYROXINE 25 MCG TAB PO SCH (06:09)
[2018-08-10] MEDS: PANTOPRAZOLE 40 MG TABLET PO SCH ×2 (06:09→17:11)
[2018-08-10] MEDS: INSULIN ASPART 100 UNIT/ML 1 ML 10 ML VIAL SQ SCH ×4 (06:13→20:52)
[2018-08-10 06:16] LABS: Glucose,Whole Blood 108 mg/dL (75-99)
[2018-08-10 07:34] LABS: INR 2.2 (<1.2); Prothrombin Time 20.3 sec (9.0-12.0)
[2018-08-10 07:48] LABS: Albumin 2.8 g/dL (3.5-5.0); Calcium 8.5 mg/dL (8.4-10.2); Magnesium 1.8 mg/dL (1.6-2.3); Potassium 4.3 mmol/L (3.5-5.1); Total Bilirubin 0.7 mg/dL (0.2-1.3); Total Protein 6.6 g/dL (6.3-8.2)
[2018-08-10 07:56] LABS: Anisocytosis Slight; Basophils % (A) 0 %; Eosinophils % (A) 1 %; HCT 38.5 % (39.0-53.0); HGB 11.2 gm/dL (13.0-17.5); Hypochromasia Marked; Lymphocytes # (A) 0.9 k/uL (1.0-4.8); Lymphocytes % (A) 12 %; MCH 26.8 pg (25.0-35.0); MCHC 29.2 g/dL (31.0-37.0); MCV 91.9 fL (80.0-100.0); Mean Platelet Volume 8.3; Monocytes # (A) 0.4 k/uL (0-1.0); Monocytes % (A) 5 %; Neutrophils # (A) 5.6 k/uL (1.3-7.7); Neutrophils % (A) 81 %; Platelet Count 225 k/uL (150-450); RBC 4.19 m/uL (4.30-5.90); RDW 18.1 % (11.5-15.5); WBC 6.9 k/uL (3.8-10.6)
[2018-08-10] MEDS: NITROGLYCERIN OINT 1 INCH/GM PACKET TOPICAL SCH ×4 (08:53→20:52)
[2018-08-10] MEDS: FUROSEMIDE 10 MG/ML 4 ML VIAL IV SCH ×2 (08:53→20:56)
[2018-08-10] MEDS: SUCRALFATE 1 GM TAB PO SCH ×4 (08:53→20:52)
[2018-08-10] MEDS: METOPROLOL TARTRATE 50 MG TAB PO SCH (10:40)
[2018-08-10] MEDS: hydrALAZINE HCL 50 MG TAB PO SCH ×3 (10:40→20:52)
[2018-08-10] MEDS: ASPIRIN 81 MG PO SCH (10:41)
[2018-08-10] MEDS: SODIUM CHLORIDE 0.9% 1,000 ML IV SCH ×2 (10:41→10:42)
--- NOTE | 2018-08-10 10:43 | P.PN ---
Subjective Progress Note Date: 08/10/18 This is a 83-year-old male with a recent prolonged hospitalization earlier in July for sepsis with possible ischemic colitis. Patient completed a course antibiotics as of yesterday with Ceftin and Flagyl. Her patient's caregivers patient has been more short of breath especially with activity. They 've noted significant right lower extremity edema and edema in the back as well. Patient also started complaining of abdominal pain. No nausea or vomiting. Decreased appetite. Having small bowel movements and constipation. Patient was brought into the emergency room for further evaluation and treatment for congestive heart failure exacerbation. BNP was 84,500. Chest x- ray reports to correlate for CHF with interstitial pulmonary edema and mass like area of opacity in the right mid lung. Patient started on IV Lasix. Also note her caregivers that Lasix had been decreased from 40 mg daily down to 20 mg daily. Patient did have some acute kidney injury on his previous hospitalization in Lasix dose was adjusted. Patient also has a known history of chronic atrial fibrillation in which she is anticoagulated with Coumadin, COPD, diabetes mellitus, GERD, hyperlipidemia, hypertension, myocardial infarction, obstructive sleep apnea, congestive heart failure with an EF of 45- 50%. On admission patient also had elevated lactic acid of 3.4 troponin elevated at 0.085 creatinine 1.46. Pulmonary, cardiology and surgical consults have been placed. Patient has had abdominal pain in the center of his abdomen similar to his last admission. Patient is hard of hearing and most of history was obtained from the caregivers. On 08/10/2018 patient is currently resting comfortably in bed. At this time patient denies chest pain or shortness of breath. Patient denies any urinary frequency or burning. Patient denies nausea vomiting diarrhea Objective - Vital Signs Vital signs: Vital Signs Temp 95.5 F L 08/10/18 08:30 Pulse 79 08/10/18 08:30 Resp 16 08/10/18 08:30 BP 168/88 08/10/18 08:30 Pulse Ox 96 08/10/18 08:30 Intake & Output 08/09/18 08/10/18 08/10/18 18:59 06:59 18:59 Intake Total 480 Output Total 350 300 Balance -350 180 Weight 72.121 kg 87.2 kg 87.2 kg Intake: Oral 480 Output: Urine 350 300 Other: Voiding Method Urinal Diaper # Voids 1 3 1 # Bowel Movements 3 - Exam Head normocephalic Neck supple Lungs diminished at bases bilaterally Heart regular rate and rhythm S1-S2, no rub or gallop Abdomen is soft nontender nondistended positive bowel sounds no hepatosplenomegaly Extremities +2 edema right lower extremity fluid blister that has opened on right tibia. Right below the knee amputation Neuro alert and orientated to 3 hard of hearing - Labs CBC & Chem 7: 08/10/18 06:56 08/10/18 06:56 Labs: Abnormal Lab Results - Last 24 Hours (Table) 08/09/18 08/09/18 08/09/18 Range/Units 11:00 11:00 11:00 RBC 3.95 L (4.30-5.90) m/uL Hgb 11.2 L (13.0-17.5) gm/dL Hct 34.9 L (39.0-53.0) % MCHC (31.0-37.0) g/dL RDW 17.7 H (11.5-15.5) % Lymphocytes # 0.7 L (1.0-4.8) k/uL PT (9.0-12.0) sec INR (<1.2) APTT (22.0-30.0) sec Carbon Dioxide 21 L (22-30) mmol/L BUN 32 H (9-20) mg/dL Creatinine 1.46 H (0.66-1.25) mg/dL Glucose 152 H (74-99) mg/dL POC Glucose (mg/dL) (75-99) mg/dL Plasma Lactic Acid Néstor (0.7-2.0) mmol/L Calcium 8.3 L (8.4-10.2) mg/dL Total Creatine Kinase 29 L (55-170) U/L CK-MB (CK-2) 2.8 H (0.0-2.4) ng/mL Troponin I 0.085 H* (0.000-0.034) ng/mL Albumin 2.8 L (3.5-5.0) g/dL 08/09/18 08/09/18 08/09/18 Range/Units 11:00 11:00 15:15 RBC (4.30-5.90) m/uL Hgb (13.0-17.5) gm/dL Hct (39.0-53.0) % MCHC (31.0-37.0) g/dL RDW (11.5-15.5) % Lymphocytes # (1.0-4.8) k/uL PT 24.0 H (9.0-12.0) sec INR 2.7 H (<1.2) APTT 33.0 H (22.0-30.0) sec Carbon Dioxide (22-30) mmol/L BUN (9-20) mg/dL Creatinine (0.66-1.25) mg/dL Glucose (74-99) mg/dL POC Glucose (mg/dL) (75-99) mg/dL Plasma Lactic Acid Néstor 3.4 H* 2.5 H* (0.7-2.0) mmol/L Calcium (8.4-10.2) mg/dL Total Creatine Kinase (55-170) U/L CK-MB (CK-2) (0.0-2.4) ng/mL Troponin I (0.000-0.034) ng/mL Albumin (3.5-5.0) g/dL 08/09/18 08/09/18 08/10/18 Range/Units 16:42 20:43 06:11 RBC (4.30-5.90) m/uL Hgb (13.0-17.5) gm/dL Hct (39.0-53.0) % MCHC (31.0-37.0) g/dL RDW (11.5-15.5) % Lymphocytes # (1.0-4.8) k/uL PT (9.0-12.0) sec INR (<1.2) APTT (22.0-30.0) sec Carbon Dioxide (22-30) mmol/L BUN (9-20) mg/dL Creatinine (0.66-1.25) mg/dL Glucose (74-99) mg/dL POC Glucose (mg/dL) 146 H 120 H 108 H (75-99) mg/dL Plasma Lactic Acid Néstor (0.7-2.0) mmol/L Calcium (8.4-10.2) mg/dL Total Creatine Kinase (55-170) U/L CK-MB (CK-2) (0.0-2.4) ng/mL Troponin I (0.000-0.034) ng/mL Albumin (3.5-5.0) g/dL 08/10/18 08/10/18 08/10/18 Range/Units 06:56 06:56 06:56 RBC 4.19 L (4.30-5.90) m/uL Hgb 11.2 L (13.0-17.5) gm/dL Hct 38.5 L (39.0-53.0) % MCHC 29.2 L (31.0-37.0) g/dL RDW 18.1 H (11.5-15.5) % Lymphocytes # 0.9 L (1.0-4.8) k/uL PT 20.3 H (9.0-12.0) sec INR 2.2 H (<1.2) APTT (22.0-30.0) sec Carbon Dioxide (22-30) mmol/L BUN 33 H (9-20) mg/dL Creatinine 1.56 H (0.66-1.25) mg/dL Glucose 101 H (74-99) mg/dL POC Glucose (mg/dL) (75-99) mg/dL Plasma Lactic Acid Néstor (0.7-2.0) mmol/L Calcium (8.4-10.2) mg/dL Total Creatine Kinase (55-170) U/L CK-MB (CK-2) (0.0-2.4) ng/mL Troponin I (0.000-0.034) ng/mL Albumin 2.8 L (3.5-5.0) g/dL Assessment and Plan Assessment: 1. Shortness of breath with lower extremity edema likely secondary to an acute CHF exacerbation. Check 2-D echo. Continue IV Lasix. Per cardiology continue with IV Lasix and beta herb and hydralazine has been increased to better control blood pressure per cardiology. 2. Abdominal pain with recent admission with sepsis and colitis. Patient completed antibiotic course. Surgical consult placed. Check computed tomography scan of the abdomen and pelvis with oral contrast 3. Acute kidney injury: Kidney functions are improving after recent admission. Creatinine is at 1.46. Creatinine at discharge is 1.63. Continue to monitor closely while on IV Lasix. Consult nephrology 4. Elevated lactic acid level. Repeat lactic acid 2.5 5. Chronic atrial fibrillation anticoagulated with Coumadin INR 2.7. Give Coumadin 2 mg tonight check PT/INR in a.m. INR 2.2 6. Elevated troponin consult cardiology. Continue monitor cardiac enzymes. Per cardiology services it is believed that troponin elevation is probably related to elevated creatinine 7. Severe protein calorie malnutrition: Add Glucerna shakes 8. Possible diabetes mellitus: add sliding scale coverage and check A1c 9. Masslike area in mid lung noted on chest x-ray. Consult pulmonary service. 10. Hypothyroidism continue Synthroid 11. Hypomagnesemia give magnesium supplement. Repeat magnesium level 12. Right inguinal hernia. CT of abdomen and pelvis completed showing interval development of right inguinal hernia. Surgical services are consulted. Maintain given per surgical services for possible hernia repair GI prophylaxis Protonix and DVT prophylaxis Coumadin I performed an examination of the patient and discussed their management with the Nurse Practitioner. I have reviewed the Nurse Practitioner's notes and agree with the documented findings and plan of care
--- NOTE | 2018-08-10 11:49 | P.GSCN ---
History of Present Illness Consult date: 08/10/18 Reason for Consult: Abdominal pain History of present illness: 83-year-old male who is being seen at the request of the attending for a surgical eval who presented with abdominal pain. Patient is a poor historian extremely hard of hearing. Patient was just discharged recently on August 03 that hospitalization patient was seen by surgical service for abdominal pain. That prolonged hospitalization in July was for sepsis with possible ischemic colitis. Patient has completed a course of antibiotic treatment. That admission ultrasound of the abdomen reported a large gallbladder findings consistent with cholecystitis no gallstones no dilated ducts. 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 Prominent fluids within a mildly thickened mid to lower abdominal small bowel loops with liquid stool throughout the colon suspect endocolitis C. diff that admission was negative This admission patient presented to the emergency room after care provider noted the patient to be experiencing increase edema to the right lower extremity with shortness of breath. The chest x-ray obtained correlate for heart failure with interstitial pulmonary edema masslike area of opacity in the right midlung. Currently patients being followed by cardiology service started on IV Lasix to diuresis. BNP was elevated 84 500 additionally patient reportly has been experiencing abdominal pain near the umbilical area similar to prior hospitalization at the time of my exam patient is red bed with palpitation to the abdominal wall no facial grimacing questioning patient if he is having pain states discomfort abdomen is flat nondistended bowel tones present Computed tomography scan of the abdomen pelvis without contrast reviewing the report radiologist indicated did not think there was an obstruction there were air-fluid loops of colon interval development of a right inguinal hernia Consisting of the cecum the hernia does not appear spiculated mesentery and mesocolon are unremarkable appears to be an indirect inguinal hernia appearing to pass to the inguinal ring down the inguinal canal Patient has a extensive medical history chronic atrial fibrillation on anticoagulation Coumadin, coronary artery disease, systolic heart failure, recent echo left ventricular systolic function severely impaired with an EF between 20 and 25% dementia, hearing loss, left BKA Dr. alcocer at the bedside did manually reduce inguinal hernia Review of Systems Difficult to adequately obtain patient has no recall Past Medical History Past Medical History: Atrial Fibrillation, Coronary Artery Disease (CAD), Chest Pain / Angina, Heart Failure, COPD, Diabetes Mellitus, GERD/Reflux, Hearing Disorder / Deafness, Hyperlipidemia, Hypertension, Myocardial Infarction (PR), Osteoarthritis (OA), Pneumonia, Prostate Disorder, Sleep Apnea/CPAP/BIPAP, Thyroid Disorder Additional Past Medical History / Comment(s): Ejection fraction 45-50%, moderate to severe aortic valve sclerosis, mild AF, mild AR, moderate concentric left ventricular hypertrophy/hypertensive heart disease, dementia, CINTHIA, hypothyroidism, BPH, very LUMMI (doesn't have hearing aides - communicate through writing when possible), BKA r/t infection/wound. Last Myocardial Infarction Date:: Unknown History of Any Multi-Drug Resistant Organisms: MRSA Year Discovered:: 05/18/18 MDRO Source:: [facility] Past Surgical History: Joint Replacement Additional Past Surgical History / Comment(s): Bilateral knee replacements, bilateral rotator cuff repairs, left BKA Dec 2016 Past Anesthesia/Blood Transfusion Reactions: No Reported Reaction Smoking Status: Former smoker - Past Family History Father History Unknown: Yes Mother History Unknown: Yes Medications and Allergies Home Medications Medication Instructions Recorded Confirmed Type Metoprolol Tartrate [Lopressor] 50 mg PO BID@0900,2100 01/19/17 08/09/18 History Aspirin 81 mg PO DAILY 11/05/17 08/09/18 History Levothyroxine Sodium 25 mcg PO DAILY 07/21/18 08/09/18 History Sertraline HCl [Zoloft] 50 mg PO HS 07/21/18 08/09/18 History Sucralfate [Carafate] 1 gm PO QID 07/21/18 08/09/18 History Cefuroxime Axetil [Ceftin] 500 mg PO BID 5 Days #10 tab 08/03/18 08/09/18 Rx Furosemide [Lasix] 20 mg PO DAILY #30 tab 08/03/18 08/09/18 Rx hydrALAZINE HCL [Apresoline] 25 mg PO BID 30 Days #60 tab 08/03/18 08/09/18 Rx Medihoney 1 applic TOPICAL DAILY PRN 08/09/18 08/09/18 History Omeprazole 20 mg PO BID 08/09/18 08/09/18 History Sennosides [Senna] 8.6 mg PO DAILY 08/09/18 08/09/18 History Tetrahydrozoline 0.05% Ophth 1 drop BOTH EYES DAILY PRN 08/09/18 08/09/18 History [Visine Eye Drops] Allergies Allergy/AdvReac Type Severity Reaction Status Date / Time No Known Allergies Allergy Verified 08/09/18 11:37 Surgical - Exam Vital Signs Temp Pulse Resp BP Pulse Ox 97.4 F L 58 L 20 136/79 90 L 08/09/18 10:28 08/09/18 10:28 08/09/18 10:28 08/09/18 10:28 08/09/18 10:28 GENERAL APPEARANCE: 83 year old male sitting up in bed very hard of hearing alert, oriented, to person and place in no acute distress. VITAL SIGNS: Reviewed HEENT: Head is normocephalic and atraumatic. Pupils are equal and reactive. The nares are patent. Oropharynx is clear without lesions. NECK: Supple without lymphadenopathy. Traches midline. HEART: S1, S2. Irregular denying chest pain when questioning LUNGS: Posterior diminished at the bases upper airways adequate air movement sats 96% on 4 L ABDOMEN: Soft, no facial grimacing with palpitation to the abdominal wall nontender, nondistended with good bowel sounds. No peritoneal signs. No palpable organomegaly or masses. Nursing reports the patient had a bowel movement last night large amount patient currently is asking for a diet stating he is hungry EXTREMITIES: Upper extremities no edema. 2+ nonpitting to the right lower extremity with a med boots in place. Left below the knee amputee. Neurological hearing deficit alert awake Results - Labs 08/10/18 06:56 08/10/18 06:56 Abnormal Lab Results - Last 24 Hours (Table) 08/09/18 08/09/18 08/09/18 Range/Units 11:00 11:00 11:00 RBC 3.95 L (4.30-5.90) m/uL Hgb 11.2 L (13.0-17.5) gm/dL Hct 34.9 L (39.0-53.0) % MCHC (31.0-37.0) g/dL RDW 17.7 H (11.5-15.5) % Lymphocytes # 0.7 L (1.0-4.8) k/uL PT (9.0-12.0) sec INR (<1.2) APTT (22.0-30.0) sec Carbon Dioxide 21 L (22-30) mmol/L BUN 32 H (9-20) mg/dL Creatinine 1.46 H (0.66-1.25) mg/dL Glucose 152 H (74-99) mg/dL POC Glucose (mg/dL) (75-99) mg/dL Plasma Lactic Acid Néstor (0.7-2.0) mmol/L Calcium 8.3 L (8.4-10.2) mg/dL Total Creatine Kinase 29 L (55-170) U/L CK-MB (CK-2) 2.8 H (0.0-2.4) ng/mL Troponin I 0.085 H* (0.000-0.034) ng/mL Albumin 2.8 L (3.5-5.0) g/dL 08/09/18 08/09/18 08/09/18 Range/Units 11:00 11:00 15:15 RBC (4.30-5.90) m/uL Hgb (13.0-17.5) gm/dL Hct (39.0-53.0) % MCHC (31.0-37.0) g/dL RDW (11.5-15.5) % Lymphocytes # (1.0-4.8) k/uL PT 24.0 H (9.0-12.0) sec INR 2.7 H (<1.2) APTT 33.0 H (22.0-30.0) sec Carbon Dioxide (22-30) mmol/L BUN (9-20) mg/dL Creatinine (0.66-1.25) mg/dL Glucose (74-99) mg/dL POC Glucose (mg/dL) (75-99) mg/dL Plasma Lactic Acid Néstor 3.4 H* 2.5 H* (0.7-2.0) mmol/L Calcium (8.4-10.2) mg/dL Total Creatine Kinase (55-170) U/L CK-MB (CK-2) (0.0-2.4) ng/mL Troponin I (0.000-0.034) ng/mL Albumin (3.5-5.0) g/dL 08/09/18 08/09/18 08/10/18 Range/Units 16:42 20:43 06:11 RBC (4.30-5.90) m/uL Hgb (13.0-17.5) gm/dL Hct (39.0-53.0) % MCHC (31.0-37.0) g/dL RDW (11.5-15.5) % Lymphocytes # (1.0-4.8) k/uL PT (9.0-12.0) sec INR (<1.2) APTT (22.0-30.0) sec Carbon Dioxide (22-30) mmol/L BUN (9-20) mg/dL Creatinine (0.66-1.25) mg/dL Glucose (74-99) mg/dL POC Glucose (mg/dL) 146 H 120 H 108 H (75-99) mg/dL Plasma Lactic Acid Néstor (0.7-2.0) mmol/L Calcium (8.4-10.2) mg/dL Total Creatine Kinase (55-170) U/L CK-MB (CK-2) (0.0-2.4) ng/mL Troponin I (0.000-0.034) ng/mL Albumin (3.5-5.0) g/dL 08/10/18 08/10/18 08/10/18 Range/Units 06:56 06:56 06:56 RBC 4.19 L (4.30-5.90) m/uL Hgb 11.2 L (13.0-17.5) gm/dL Hct 38.5 L (39.0-53.0) % MCHC 29.2 L (31.0-37.0) g/dL RDW 18.1 H (11.5-15.5) % Lymphocytes # 0.9 L (1.0-4.8) k/uL PT 20.3 H (9.0-12.0) sec INR 2.2 H (<1.2) APTT (22.0-30.0) sec Carbon Dioxide (22-30) mmol/L BUN 33 H (9-20) mg/dL Creatinine 1.56 H (0.66-1.25) mg/dL Glucose 101 H (74-99) mg/dL POC Glucose (mg/dL) (75-99) mg/dL Plasma Lactic Acid Néstor (0.7-2.0) mmol/L Calcium (8.4-10.2) mg/dL Total Creatine Kinase (55-170) U/L CK-MB (CK-2) (0.0-2.4) ng/mL Troponin I (0.000-0.034) ng/mL Albumin 2.8 L (3.5-5.0) g/dL Diabetes panel 08/09/18 08/09/18 08/10/18 Range/Units 11:00 15:15 06:56 Sodium 139 142 (137-145) mmol/L Potassium 4.1 4.3 (3.5-5.1) mmol/L Chloride 107 107 (98-107) mmol/L Carbon Dioxide 21 L 25 (22-30) mmol/L BUN 32 H 33 H (9-20) mg/dL Creatinine 1.46 H 1.56 H (0.66-1.25) mg/dL Glucose 152 H 101 H (74-99) mg/dL Hemoglobin A1c 6.0 (4.0-6.0) % Calcium 8.3 L 8.5 (8.4-10.2) mg/dL AST 23 20 (17-59) U/L ALT 24 23 (21-72) U/L Alkaline Phosphatase 81 88 (38-126) U/L Total Protein 6.6 6.6 (6.3-8.2) g/dL Albumin 2.8 L 2.8 L (3.5-5.0) g/dL Calcium panel 08/09/18 08/10/18 Range/Units 11:00 06:56 Calcium 8.3 L 8.5 (8.4-10.2) mg/dL Albumin 2.8 L 2.8 L (3.5-5.0) g/dL Pituitary panel 08/09/18 08/10/18 Range/Units 11:00 06:56 Sodium 139 142 (137-145) mmol/L Potassium 4.1 4.3 (3.5-5.1) mmol/L Chloride 107 107 (98-107) mmol/L Carbon Dioxide 21 L 25 (22-30) mmol/L BUN 32 H 33 H (9-20) mg/dL Creatinine 1.46 H 1.56 H (0.66-1.25) mg/dL Glucose 152 H 101 H (74-99) mg/dL Calcium 8.3 L 8.5 (8.4-10.2) mg/dL Adrenal panel 08/09/18 08/10/18 Range/Units 11:00 06:56 Sodium 139 142 (137-145) mmol/L Potassium 4.1 4.3 (3.5-5.1) mmol/L Chloride 107 107 (98-107) mmol/L Carbon Dioxide 21 L 25 (22-30) mmol/L BUN 32 H 33 H (9-20) mg/dL Creatinine 1.46 H 1.56 H (0.66-1.25) mg/dL Glucose 152 H 101 H (74-99) mg/dL Calcium 8.3 L 8.5 (8.4-10.2) mg/dL Total Bilirubin 0.7 0.7 (0.2-1.3) mg/dL AST 23 20 (17-59) U/L ALT 24 23 (21-72) U/L Alkaline Phosphatase 81 88 (38-126) U/L Total Protein 6.6 6.6 (6.3-8.2) g/dL Albumin 2.8 L 2.8 L (3.5-5.0) g/dL Assessment and Plan Assessment: Impression Present on admission abdominal pain suspect due to right inguinal hernia CT abdomen and pelvis indicate no obstruction air-fluid loop of colon noted Per advance directives no CODE STATUS Dementia with no behavior disturbance Chronic atrial fibrillation on long-term anticoagulation Coumadin History of a left below the knee amputation Ultrasound prior admission showed dilated gallbladder possible cholecystitis Severe protein calorie malnutrition Masslike area in the right midlung Abdominal pain with a recent admission sepsis colitis. Thanks Elevated troponin suspect due to elevated creatinine Present on admission shortness of breath suspect due to an acute exacerbation of chronic systolic heart failure EF on a current echo severely impaired between 20 and 25% Debilitated chronic limited ability to participate in ADLs Ultrasound of gallbladder done 07/22/2018 showed thickening gallbladder wall Inguinal hernia manually reduced this admission Plan Surgery will be on hold until patient is medically stable from a pulmonary and cardiology perspective Cardiology's recommendations noted and appreciated patient to be diuresed for an acute exacerbation of systolic heart failure recommending holding surgery until patient is medically stable Continue recommendations by cardiology Lasix 40 IV every 12 per cardiology's recommendations monitor electrolytes and renal function Will follow surgically with you addressing surgical issues as they arise Pain control DVT and GI prophylaxis Further surgical recommendations pending Surgical consultation note dictated for Dr. alcocer The above impression and plan of care have been discussed and directed by signing physician. Anita Fortune nurse practitioner acting as scribe for signing physician.
[2018-08-10] MEDS ORDERED: amLODIPine 10 MG TAB PO SCH (12:00)
[2018-08-10 12:20] LABS: Glucose,Whole Blood 93 mg/dL (75-99)
--- NOTE | 2018-08-10 12:36 | P.PN ---
Subjective Progress Note Date: 08/10/18 This is an 83-year-old gentleman who was brought to the hospital because his caregivers noted him to be significantly more short of breath. He also noticed a significant increase in his peripheral edema, he's been having a decreased appetite at home. Apparently was complaining of some abdominal discomfort as well. Patient was brought to the emergency room for further evaluation and treatment, currently receiving treatment for congestive heart failure exacerbation. BNP level on arrival 84,500. Chest x-ray showed CHF with interstitial pulmonary edema and a masslike area of opaque severe in the mid right lung. Continues to be on IV Lasix. Patient also has history of chronic atrial fibrillation, anticoagulated with Coumadin, COPD, sleep apnea, hypothyroidism, diabetes, left BKA, GERD, hyperlipidemia, hypertension, sleep apnea. Lactic acid was noted to be abnormal on admission at 3.4. Patient was seen and examined this morning, lying in bed, he is quite hard of hearing but answers questions appropriately. He did complain this morning of feeling short of breath, when lying flat, this seemed to improve when we raise the head of his bed. Blood pressure this morning 132/80 with a heart rate in the 60s, 100% on 4 L of oxygen. White blood cell count 6.9, hemoglobin 11.2, platelet count 225. INR 2.2, sodium 142, potassium 4.3, BUN 33, creatinine 1.5. Objective - Vital Signs Vital signs: Vital Signs Temp 95.4 F L 08/10/18 12:00 Pulse 52 L 08/10/18 12:00 Resp 20 08/10/18 12:00 BP 132/88 08/10/18 12:00 Pulse Ox 100 08/10/18 12:00 Intake & Output 08/09/18 08/10/18 08/10/18 18:59 06:59 18:59 Intake Total 480 Output Total 350 300 370 Balance -350 180 -370 Weight 72.121 kg 87.2 kg 87.2 kg Intake: Oral 480 Output: Urine 350 300 370 Other: Voiding Method Urinal Urinal Diaper Diaper # Voids 1 3 1 # Bowel Movements 3 - Exam PHYSICAL EXAMINATION: GENERAL: 83-year-old gentleman in mild distress respiratory-strickland this morning. HEENT: Head is atraumatic, normocephalic. Pupils equal, round. Sclera anicteric. Patient is very hard of hearing Conjunctiva are clear. Mucous membranes of the mouth are moist. Neck is supple. There is elevated jugular venous pressure, up to the angle of the jaw . no carotid bruit is heard. HEART EXAMINATION: Heart S1 S2 1 systolic murmur is heard.CHEST EXAMINATION: Lungs reveal diminished air entry to bilateral bases with rales noted to bilateral bases as well. ABDOMEN: Soft, nontender. Bowel sounds are heard. No organomegaly noted. EXTREMITIES: 1+ peripheral pulses with 2+ evidence of peripheral edema , patient has a left below the knee amputation NUROLOGIC [patient is awake, alert and oriented X2.] . - Labs CBC & Chem 7: 08/10/18 06:56 08/10/18 06:56 Labs: Abnormal Lab Results - Last 24 Hours (Table) 08/09/18 08/09/18 08/09/18 Range/Units 15:15 16:42 20:43 RBC (4.30-5.90) m/uL Hgb (13.0-17.5) gm/dL Hct (39.0-53.0) % MCHC (31.0-37.0) g/dL RDW (11.5-15.5) % Lymphocytes # (1.0-4.8) k/uL PT (9.0-12.0) sec INR (<1.2) BUN (9-20) mg/dL Creatinine (0.66-1.25) mg/dL Glucose (74-99) mg/dL POC Glucose (mg/dL) 146 H 120 H (75-99) mg/dL Plasma Lactic Acid Néstor 2.5 H* (0.7-2.0) mmol/L Albumin (3.5-5.0) g/dL 08/10/18 08/10/18 08/10/18 Range/Units 06:11 06:56 06:56 RBC 4.19 L (4.30-5.90) m/uL Hgb 11.2 L (13.0-17.5) gm/dL Hct 38.5 L (39.0-53.0) % MCHC 29.2 L (31.0-37.0) g/dL RDW 18.1 H (11.5-15.5) % Lymphocytes # 0.9 L (1.0-4.8) k/uL PT 20.3 H (9.0-12.0) sec INR 2.2 H (<1.2) BUN (9-20) mg/dL Creatinine (0.66-1.25) mg/dL Glucose (74-99) mg/dL POC Glucose (mg/dL) 108 H (75-99) mg/dL Plasma Lactic Acid Néstor (0.7-2.0) mmol/L Albumin (3.5-5.0) g/dL 08/10/18 Range/Units 06:56 RBC (4.30-5.90) m/uL Hgb (13.0-17.5) gm/dL Hct (39.0-53.0) % MCHC (31.0-37.0) g/dL RDW (11.5-15.5) % Lymphocytes # (1.0-4.8) k/uL PT (9.0-12.0) sec INR (<1.2) BUN 33 H (9-20) mg/dL Creatinine 1.56 H (0.66-1.25) mg/dL Glucose 101 H (74-99) mg/dL POC Glucose (mg/dL) (75-99) mg/dL Plasma Lactic Acid Néstor (0.7-2.0) mmol/L Albumin 2.8 L (3.5-5.0) g/dL Assessment and Plan Plan: Assessment and plan #1 systolic congestive heart failure acute on chronic. Echocardiogram with Doppler study performed on this admission showed an ejection fraction of 20-25% . Moderate aortic stenosis, severe mitral regurg, severe tricuspid regurg, severe pulmonary hypertension. We will continue current dose of IV Lasix. #2 uncontrolled hypertension #3 chronic persistent atrial fibrillation with controlled ventricular response #4 acute on chronic kidney injury #5 abnormal troponin #6 hypothyroidism #7 history of left below the knee amputation #8 inguinal hernia, reduced this morning Plan From cardiology's perspective, we'll continue the patient on current dose of IV Lasix, continue to monitor intake and output along with daily weights and daily lytes BUN and creatinine. 5, once that stabilizes we will consider the addition of RK inhibitor. Patient's blood pressure is on the higher side, but the heart rate dips down at times today in the 40s to 50s. We will decrease the dose of beta herb and add Norvasc to his medication regime. Further recommendations to follow. DNP note has been reviewed, I agree with a documented findings and plan of care. Patient was seen and examined.
--- NOTE | 2018-08-10 14:20 | P.CNPUL ---
History of Present Illness Consult date: 08/10/18 Reason for consult: dyspnea, pleural effusion, abnormal CXR/CT, other Chief complaint: Right inguinal hernia, abdominal pain, dyspnea History of present illness: This is a 83-year-old white male patient who was brought to the emergency department by a family member for complaint of abdominal pain, shortness of breath related to increased pain. Abdominal pain is in the right lower quadrant. Patient was recently in the hospital with lower abdominal pain, with lactic acidosis. CT of the abdomen showed prominent fluid within mildly thickened mid to lower abdominal small bowel loops, patient was treated for enterocolitis with Rocephin and Flagyl, was sent home on Cipro and Flagyl at discharge. During that admission patient also had abnormal LFTs with dilated gallbladder, ultrasound of the gallbladder showed large gallbladder with mild wall thickening and pericolic cystic fluid consistent with cholecystitis, no gallstones. He was medically treated, improved, and discharged home on 2017. C. diff was negative. 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 Chest x-ray was completed in the emergency department showed interstitial pulmonary edema, masslike areas of opacity at the midlung levels representing pseudotumors the previously seen on CAT scans and chest x-rays. CT of the abdomen and pelvis with no bowel obstruction or pneumoperitoneum. It showed interval development of right inguinal hernia, possible incarceration. She was seen by surgery, and the right inguinal hernia was manually reduced. There were bilateral pleural effusions seen on the CT of abdomen and pelvis. Lab work was reviewed, no leukocytosis, WBC is 5.5, hemoglobin is 11.2, INR is 2.7, and 39, potassium is 4.1, CO2 is 21, BUN is 32 and creatinine is 1.46. Patient was started on IV Lasix 40 mg every 12 hours, he denies chest pain at this time , currently in no acute distress, she is on 4 L per nasal cannula and his pulse ox was 100%, afebrile, and this afternoon axillary temperatures of 95.4, not sure how accurate these temperatures are, his skin is dry and warm. Blood pressures are 132/88, patient is urinating per urinal. Lung sounds are diminished bilateral bases, patient has a congested cough. There is 1+ pitting edema in his right lower extremity, and there are open wounds on his right lynch area with small amount of yellow drainage. This is covered with a dressing. Review of Systems All systems: negative Constitutional: Denies chills, Denies fever Eyes: denies blurred vision, denies pain Ears, nose, mouth and throat: Denies headache, Denies sore throat Cardiovascular: Reports edema, Reports leg edema, Denies chest pain, Denies shortness of breath Respiratory: Reports congestion, Reports dyspnea, Denies cough Gastrointestinal: Denies abdominal pain, Denies diarrhea, Denies nausea, Denies vomiting Musculoskeletal: Denies myalgias Integumentary: Denies pruritus, Denies rash Neurological: Denies numbness, Denies weakness Psychiatric: Denies anxiety, Denies depression Endocrine: Denies fatigue, Denies weight change Past Medical History Past Medical History: Atrial Fibrillation, Coronary Artery Disease (CAD), Chest Pain / Angina, Heart Failure, COPD, Diabetes Mellitus, GERD/Reflux, Hearing Disorder / Deafness, Hyperlipidemia, Hypertension, Myocardial Infarction ([place]), Osteoarthritis (OA), Pneumonia, Prostate Disorder, Sleep Apnea/CPAP/BIPAP, Thyroid Disorder Additional Past Medical History / Comment(s): Ejection fraction 45-50%, moderate to severe aortic valve sclerosis, mild AF, mild AR, moderate concentric left ventricular hypertrophy/hypertensive heart disease, dementia, CINTHIA, hypothyroidism, BPH, very [place] (doesn't have hearing aides - communicate through writing when possible), BKA r/t infection/wound. 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 2016 Past Anesthesia/Blood Transfusion Reactions: No Reported Reaction Smoking Status: Former smoker - Past Family History Father History Unknown: Yes Mother History Unknown: Yes Medications and Allergies Home Medications Medication Instructions Recorded Confirmed Type Metoprolol Tartrate [Lopressor] 50 mg PO BID@0900,2100 01/19/17 08/09/18 History Aspirin 81 mg PO DAILY 11/05/17 08/09/18 History Levothyroxine Sodium 25 mcg PO DAILY 07/21/18 08/09/18 History Sertraline HCl [Zoloft] 50 mg PO HS 07/21/18 08/09/18 History Sucralfate [Carafate] 1 gm PO QID 07/21/18 08/09/18 History Cefuroxime Axetil [Ceftin] 500 mg PO BID 5 Days #10 tab 08/03/18 08/09/18 Rx Furosemide [Lasix] 20 mg PO DAILY #30 tab 08/03/18 08/09/18 Rx hydrALAZINE HCL [Apresoline] 25 mg PO BID 30 Days #60 tab 08/03/18 08/09/18 Rx Medihoney 1 applic TOPICAL DAILY PRN 08/09/18 08/09/18 History Omeprazole 20 mg PO BID 08/09/18 08/09/18 History Sennosides [Senna] 8.6 mg PO DAILY 08/09/18 08/09/18 History Tetrahydrozoline 0.05% Ophth 1 drop BOTH EYES DAILY PRN 08/09/18 08/09/18 History [Visine Eye Drops] Allergies Allergy/AdvReac Type Severity Reaction Status Date / Time No Known Allergies Allergy Verified 08/09/18 11:37 Physical Exam Vitals: Vital Signs Temp Pulse Resp BP BP Pulse Ox 08/10/18 12:00 95.4 F L 52 L 20 132/88 100 08/10/18 08:30 95.5 F L 79 16 168/88 96 08/10/18 04:00 98.4 F 69 18 142/55 94 L 08/10/18 00:00 97.8 F 79 18 132/58 94 L 08/09/18 20:00 97.9 F 84 20 174/88 93 L 08/09/18 16:00 70 16 169/96 91 L Intake and Output 08/09/18 08/10/18 08/10/18 22:59 06:59 14:59 Intake Total 480 0 Output Total 300 0 370 Balance 180 0 -370 Intake: Oral 480 0 Output: Urine 300 0 370 Other: Voiding Method Urinal Urinal Urinal Diaper Diaper Diaper # Voids 0 3 0 # Bowel Movements 3 Weight 72.121 kg 87.2 kg 87.2 kg GENERAL EXAM: Alert, pleasant, 83-year-old white male, very hard of hearing comfortable in no apparent distress. HEAD: Normocephalic/atraumatic. EYES: Normal reaction of pupils, equal size. Conjunctiva pink, sclera white. NOSE: Clear with pink turbinates. THROAT: No erythema or exudates. NECK: No masses, no JVD, no thyroid enlargement, no adenopathy. CHEST: No chest wall deformity. Symmetrical expansion. Diminished breath sounds at bases, and has a congested cough LUNGS: Equal air entry with no crackles, wheeze, rhonchi or dullness. Congestive cough, diminished breath sounds CVS: Irregular rate and rhythm, normal S1 and S2, no gallops, no murmurs, no rubs ABDOMEN: Soft, nontender. No hepatosplenomegaly, normal bowel sounds, no guarding or rigidity. EXTREMITIES: No clubbing, no cyanosis, 2+ pulses and upper and lower extremities. Right lower extremity edema, there is open weeping wound on his right anterior lynch area, with smoldering yellow drainage MUSCULOSKELETAL: Muscle strength and tone normal. SPINE: No scoliosis or deformity SKIN: No rashes CENTRAL NERVOUS SYSTEM: Alert and oriented -1. No focal deficits, tone is normal in all 4 extremities. Results - Laboratory Findings CBC and BMP: 08/10/18 06:56 08/10/18 06:56 PT/INR, D-dimer PT 20.3 sec (9.0-12.0) H 08/10/18 06:56 INR 2.2 (<1.2) H 08/10/18 06:56 Abnormal lab findings: Abnormal Labs 08/09/18 08/09/18 08/09/18 11:00 11:00 11:00 RBC 3.95 L Hgb 11.2 L Hct 34.9 L MCHC RDW 17.7 H Lymphocytes # 0.7 L PT INR APTT Carbon Dioxide 21 L BUN 32 H Creatinine 1.46 H Glucose 152 H POC Glucose (mg/dL) Plasma Lactic Acid Néstor Calcium 8.3 L Total Creatine Kinase 29 L CK-MB (CK-2) 2.8 H Troponin I 0.085 H* Albumin 2.8 L 08/09/18 08/09/18 08/09/18 11:00 11:00 15:15 RBC Hgb Hct MCHC RDW Lymphocytes # PT 24.0 H INR 2.7 H APTT 33.0 H Carbon Dioxide BUN Creatinine Glucose POC Glucose (mg/dL) Plasma Lactic Acid Néstor 3.4 H* 2.5 H* Calcium Total Creatine Kinase CK-MB (CK-2) Troponin I Albumin 08/09/18 08/09/18 08/10/18 16:42 20:43 06:11 RBC Hgb Hct MCHC RDW Lymphocytes # PT INR APTT Carbon Dioxide BUN Creatinine Glucose POC Glucose (mg/dL) 146 H 120 H 108 H Plasma Lactic Acid Néstor Calcium Total Creatine Kinase CK-MB (CK-2) Troponin I Albumin 08/10/18 08/10/18 08/10/18 06:56 06:56 06:56 RBC 4.19 L Hgb 11.2 L Hct 38.5 L MCHC 29.2 L RDW 18.1 H Lymphocytes # 0.9 L PT 20.3 H INR 2.2 H APTT Carbon Dioxide BUN 33 H Creatinine 1.56 H Glucose 101 H POC Glucose (mg/dL) Plasma Lactic Acid Néstor Calcium Total Creatine Kinase CK-MB (CK-2) Troponin I Albumin 2.8 L - Diagnostic Findings Chest x-ray: report reviewed, image reviewed Additional studies: Abdomen/pelvis CT reviewed, EKG reviewed Assessment and Plan Plan: Assessment: #1. Acute abdominal pain, incarcerated right inguinal hernia. #2. Lactic acidosis #3. Dyspnea related to bilateral pleural effusions, acute CHF exacerbation with her previously impaired systolic dysfunction . #4. Recent hospitalization for abdominal pain, colitis, and sepsis. #5. Acute kidney injury, is renal function was impaired during his last hospitalization, patient was discharged home, creatinine of 1.63, current creatinine has improved, they have 1.46. #6. Chronic atrial fibrillation on Coumadin, with INR of 2.7, #7. Elevated troponins #8. Pseudotumors within the right lung previously noted on previous CAT scans and chest x-rays #9. Hypothyroidism on thyroid mode replacement #10. 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 Right lower leg open wound . #12. History of dementia #13. Osteoarthritis #14. BPH #15. General medical debility, and impaired performance and functional status Plan: Continue IV diuretics, case was discussed with the general surgery, and clearance will be needed from cardiology for surgical intervention. Patient's right inguinal hernia was manually reduced, hence persistent right lower abdominal pain. Patient has multiple medical comorbidities, poor functional status, and will be at increased risk for postoperative complications if surgery is necessary. Bleeding continue monitoring her hemodynamics, her fever pattern, increased abdominal discomfort. Monitor mentation, electrolytes, renal profile. We'll continue to follow her prognosis is guarded I performed a history & physical examination of the patient and discussed their management with my nurse practitioner, Henny Walsh. I reviewed the nurse practitioner's note and agree with the documented findings and plan of care. Lung sounds are diminished. The findings and the impression was discussed with the patient. I attest to the documentation by the nurse practitioner. Time with Patient: Greater than 30
--- NOTE | 2018-08-10 15:09 | CONS ---
CONSULTATION REASON FOR CONSULT: Renal failure. HISTORY OF PRESENT ILLNESS: Patient is an 83-year-old male who was admitted to the hospital yesterday through the ER with complaints of shortness of breath. Patient was sent in by the visiting nurse. He had also increased swelling in his lower extremity. Patient denied any cough. No fevers or chills. He denied any significant diarrhea. Serum creatinine was 1.46 on initial admission, today it is at 1.56. Previous labs show creatinine about 1.6-1.7 mg/dL in July. Blood pressure has not been low, in fact it was a bit on the higher side on initial admission. Patient has been voiding in a diaper. He is currently maintained on IV Lasix. Chest x-ray from yesterday showed evidence of CHF. PAST MEDICAL HISTORY: Significant for hypertension, A. fib, coronary artery disease, gastroesophageal reflux disease. Patient is very hard of hearing, hyperlipidemia, coronary artery disease, BPH, cardiomyopathy, ejection fraction 45%-50%., aortic valve sclerosis, hypothyroidism, history of dementia, right BKA. PAST SURGICAL HISTORY: Bilateral knee arthroplasty. Patient has a left BKA, rotator cuff surgeries. MEDICATIONS: Prior to admission include Lopressor, aspirin, Synthroid, Zoloft, Carafate, Lasix, hydralazine, omeprazole. ALLERGIES: None. PHYSICAL EXAMINATION: Patient is comfortable, awake, alert, oriented x3, not in any acute distress. He is very hard of hearing. Blood pressure was 168/88, heart rate 79 per minute. He is afebrile. Examination of the heart, S1, S2. Examination of the lungs, bilateral breath sounds are heard. Abdomen is soft, nontender. Examination of the lower extremities shows 1+ edema bilaterally and left BKA. STAFF RN exam is grossly intact. LABS: Show sodium 142, potassium 4.3, chloride 107, BUN 33, serum creatinine 1.56, hemoglobin 11.2 g/dL. UA is not available. ASSESSMENT: 1. Chronic kidney disease, NKF stage III, with previous creatinine at about 1.3-1.6 mg/dL in July. However, we do have previous creatinine of 0.8 on 06/11/2018. At this time, it appears to be cardiorenal. We need to rule out urine retention. There is no evidence of hydronephrosis on abdominal CT. I will continue with the Lasix. Patient is not on any nephrotoxic medications. He is also not hypotensive. I will check a urinalysis. Previous UA on July 21 did show evidence of proteinuria. 2. Congestive heart failure, acute on top of chronic, systolic with echocardiogram from yesterday on this admission showing ejection fraction of 20%-25% with severe global hypokinesis and severe pulmonary hypertension. 3. Atrial fibrillation with controlled ventricular response. 4. Type 2 diabetes, maintained on insulin. PLAN: Continue off of IV fluids. Continue with current dose of Lasix. Check urinalysis and check postvoidal residual to rule out bladder retention. Avoid hypotension. Thank you for this consultation. Will continue to follow the patient with you during his hospitalization. MMODL / IJN: [id number] /
[2018-08-10] MEDS: SENNOSIDES 8.6 MG TAB PO SCH (15:43)
[2018-08-10] MEDS: amLODIPine 5 MG TAB PO SCH (15:43)
[2018-08-10 16:22] LABS: Glucose,Whole Blood 95 mg/dL (75-99)
[2018-08-10 18:37] LABS: Appearance,Urine Cloudy (Clear); Bacteria,Urine Rare /hpf; Bilirubin,Urine Negative (Negative); Blood,Urine Negative (Negative); Budding Yeast,Urine Occasional /hpf; Color,Urine Yellow; Glucose,Urine (UA) Negative (Negative); Hyaline Casts,Urine 8 /lpf (0-2); Ketones,Urine Negative (Negative); Leukocyte Esterase,Urine Negative (Negative); Mucus,Urine Rare /hpf; Nitrite,Urine Negative (Negative); Protein,Urine 1+ (Negative); RBC,Urine 5 /hpf (0-5); Squamous Epithelial Cell,Urine <1 /hpf (0-4); Urobilinogen,Urine <2.0 mg/dL (<2.0); WBC,Urine 2 /hpf (0-5)
[2018-08-10 20:41] LABS: Glucose,Whole Blood 109 mg/dL (75-99)
[2018-08-10] MEDS: SERTRALINE 50 MG TAB PO SCH (20:52)
[2018-08-10] MEDS: METOPROLOL TARTRATE 25 MG TAB PO SCH (20:52)
[2018-08-11 06:16] LABS: Glucose,Whole Blood 94 mg/dL (75-99)
[2018-08-11 06:39] LABS: INR 1.8 (<1.2); Prothrombin Time 16.2 sec (9.0-12.0)
[2018-08-11 06:40] LABS: Anisocytosis Slight; Basophils % (A) 0 %; Eosinophils # (A) 0.1 k/uL (0-0.7); Eosinophils % (A) 1 %; HCT 37.2 % (39.0-53.0); HGB 11.5 gm/dL (13.0-17.5); Hypochromasia Moderate; Lymphocytes % (A) 15 %; MCH 27.8 pg (25.0-35.0); MCHC 30.8 g/dL (31.0-37.0); MCV 90.5 fL (80.0-100.0); Mean Platelet Volume 8.2; Monocytes # (A) 0.3 k/uL (0-1.0); Monocytes % (A) 5 %; Neutrophils % (A) 78 %; Platelet Count 209 k/uL (150-450); RBC 4.12 m/uL (4.30-5.90); RDW 18.2 % (11.5-15.5); WBC 6.4 k/uL (3.8-10.6)
[2018-08-11 06:57] LABS: Albumin 2.6 g/dL (3.5-5.0); Calcium 8.3 mg/dL (8.4-10.2); Potassium 3.5 mmol/L (3.5-5.1); Total Bilirubin 0.6 mg/dL (0.2-1.3); Total Protein 6.2 g/dL (6.3-8.2)
[2018-08-11] MEDS: INSULIN ASPART 100 UNIT/ML 1 ML 10 ML VIAL SQ SCH ×4 (08:26→22:05)
[2018-08-11] MEDS: hydrALAZINE HCL 50 MG TAB PO SCH ×3 (08:30→22:00)
[2018-08-11] MEDS: LEVOTHYROXINE 25 MCG TAB PO SCH (08:31)
[2018-08-11] MEDS: NITROGLYCERIN OINT 1 INCH/GM PACKET TOPICAL SCH ×4 (08:31→22:00)
[2018-08-11] MEDS: FUROSEMIDE 10 MG/ML 4 ML VIAL IV SCH ×2 (08:31→22:00)
[2018-08-11] MEDS: amLODIPine 5 MG TAB PO SCH (08:31)
[2018-08-11] MEDS: ASPIRIN 81 MG PO SCH (08:31)
[2018-08-11] MEDS: PANTOPRAZOLE 40 MG TABLET PO SCH ×2 (08:31→18:38)
[2018-08-11] MEDS: SUCRALFATE 1 GM TAB PO SCH ×4 (08:31→22:00)
[2018-08-11] MEDS: METOPROLOL TARTRATE 25 MG TAB PO SCH ×2 (08:31→22:00)
[2018-08-11] MEDS: SENNOSIDES 8.6 MG TAB PO SCH (08:31)
--- NOTE | 2018-08-11 09:36 | XR ---
EXAMINATION TYPE: XR chest 1V DATE OF EXAM: 08/11/2018 COMPARISON: Prior chest x-ray 08/09/2018 HISTORY: Congestive heart failure, abnormal chest x-ray TECHNIQUE: Single frontal view of the chest is obtained. FINDINGS: Findings are similar to prior exam. No pneumothorax. Basilar increased density may represe nt effusions. There may be pseudotumor present. Heart remains enlarged. Bilateral perihilar airspace disease noted. IMPRESSION: Findings could represent congestive heart failure. Follow-up to resolution to exclude un derlying mass. Bilateral pleural effusions.
--- NOTE | 2018-08-11 09:55 | PN ---
PROGRESS NOTE Patient is seen for followup for acute kidney injury. He was admitted to the hospital with abdominal pain. He has an inguinal hernia on the right side. No plans for intervention at this time. The patient was found to have a serum creatinine of 1.46. It did go up to 1.56. Previous creatinine has been about 1.5-1.4 previously. Currently patient is voiding. He is maintained on IV Lasix. Serum creatinine is down to 1.39 today. Blood pressure has not been low. Patient is very hard of hearing. PHYSICAL EXAMINATION: On examination today, blood pressure was 168/93, heart rate 71 per minute. He is afebrile. Examination of the heart, S1, S2. Examination of the lungs, bilateral breath sounds are heard. Abdomen is soft, nontender. Examination of the lower extremities shows left BKA and the right lower extremity is currently wrapped. LABS: Show serum creatinine down to 1.39. Sodium 139, potassium 3.5, hemoglobin 11.5 g/dL. UA shows 1+ protein. ASSESSMENT: 1. Acute kidney injury, nonoliguric, currently improving, most likely component of cardiorenal syndrome and related to ongoing infection in the right leg. Renal function is improving. Patient is maintained on Lasix which I will continue for now. We will repeat another chest x-ray from today. 2. Chronic kidney disease, NKF stage III, secondary to diabetic nephropathy. Baseline creatinine appears to be 1.4 mg/dL. 3. Right foot cellulitis and leg wound maintained on antibiotics. 4. History of left below-knee amputation. 5. Right inguinal hernia, being followed by Surgery. 6. Chronic atrial fibrillation, maintained on Coumadin. PLAN: Continue Lasix. Check chest x-ray. Repeat labs in a.m. Continue to avoid nephrotoxic agents. MMODL / IJN: [id number] /
--- NOTE | 2018-08-11 10:51 | P.PN ---
Subjective Progress Note Date: 08/11/18 This is an 83-year-old gentleman who was brought to the hospital because his caregivers noted him to be significantly more short of breath. He also noticed a significant increase in his peripheral edema, he's been having a decreased appetite at home. Apparently was complaining of some abdominal discomfort as well. Patient was brought to the emergency room for further evaluation and treatment, currently receiving treatment for congestive heart failure exacerbation. BNP level on arrival 84,500. Chest x-ray showed CHF with interstitial pulmonary edema and a masslike area of opaque severe in the mid right lung. Continues to be on IV Lasix. Patient also has history of chronic atrial fibrillation, anticoagulated with Coumadin, COPD, sleep apnea, hypothyroidism, diabetes, left BKA, GERD, hyperlipidemia, hypertension, sleep apnea. Lactic acid was noted to be abnormal on admission at 3.4. Patient was seen and examined this morning, lying in bed, he is quite hard of hearing but answers questions appropriately. He did complain this morning of feeling short of breath, when lying flat, this seemed to improve when we raise the head of his bed. Blood pressure this morning 132/80 with a heart rate in the 60s, 100% on 4 L of oxygen. White blood cell count 6.9, hemoglobin 11.2, platelet count 225. INR 2.2, sodium 142, potassium 4.3, BUN 33, creatinine 1.5. 08/11/2018 Patient was seen and examined this morning, still complaining of some shortness of breath, but does state that it's better than yesterday. Weight is down 2 kg today. White blood cell count 6.4, hemoglobin 11.5, platelet count 209. INR today 1.8. Sodium 139, potassium 3.5, BUN 33, creatinine 1.3. Chin used to be on IV Lasix. Objective - Vital Signs Vital signs: Vital Signs Temp 97.2 F L 08/11/18 04:56 Pulse 71 08/11/18 04:56 Resp 20 08/11/18 04:56 BP 168/93 08/11/18 04:56 Pulse Ox 97 08/11/18 04:56 Intake & Output 08/10/18 08/11/18 08/11/18 18:59 06:59 18:59 Intake Total 100 Output Total 720 1000 Balance -620 -1000 Weight 87.2 kg 85.5 kg Intake: Oral 100 Output: Urine 720 1000 Other: Voiding Method Urinal Urinal Diaper Diaper # Voids 0 1 # Bowel Movements 1 - Exam PHYSICAL EXAMINATION: GENERAL: 83-year-old gentleman in mild distress respiratory-strickland this morning. HEENT: Head is atraumatic, normocephalic. Pupils equal, round. Sclera anicteric. Patient is very hard of hearing Conjunctiva are clear. Mucous membranes of the mouth are moist. Neck is supple. There is elevated jugular venous pressure, up to the angle of the jaw . no carotid bruit is heard. HEART EXAMINATION: Heart S1 S2 1 systolic murmur is heard.CHEST EXAMINATION: Lungs reveal diminished air entry to bilateral bases with rales noted to bilateral bases as well. ABDOMEN: Soft, nontender. Bowel sounds are heard. No organomegaly noted. EXTREMITIES: 1+ peripheral pulses with 2+ evidence of peripheral edema , patient has a left below the knee amputation NUROLOGIC [patient is awake, alert and oriented X2.] . - Labs CBC & Chem 7: 08/11/18 06:19 08/11/18 06:19 Labs: Abnormal Lab Results - Last 24 Hours (Table) 08/10/18 08/10/18 08/11/18 Range/Units 18:00 20:40 06:19 RBC 4.12 L (4.30-5.90) m/uL Hgb 11.5 L (13.0-17.5) gm/dL Hct 37.2 L (39.0-53.0) % MCHC 30.8 L (31.0-37.0) g/dL RDW 18.2 H (11.5-15.5) % PT (9.0-12.0) sec INR (<1.2) BUN (9-20) mg/dL Creatinine (0.66-1.25) mg/dL POC Glucose (mg/dL) 109 H (75-99) mg/dL Calcium (8.4-10.2) mg/dL Total Protein (6.3-8.2) g/dL Albumin (3.5-5.0) g/dL Urine Protein 1+ H (Negative) Urine Bacteria Rare H (None) /hpf Hyaline Casts 8 H (0-2) /lpf Urine Mucus Rare H (None) /hpf Urine Yeast (Budding) Occasional H (None) /hpf 08/11/18 08/11/18 Range/Units 06:19 06:19 RBC (4.30-5.90) m/uL Hgb (13.0-17.5) gm/dL Hct (39.0-53.0) % MCHC (31.0-37.0) g/dL RDW (11.5-15.5) % PT 16.2 H (9.0-12.0) sec INR 1.8 H (<1.2) BUN 33 H (9-20) mg/dL Creatinine 1.39 H (0.66-1.25) mg/dL POC Glucose (mg/dL) (75-99) mg/dL Calcium 8.3 L (8.4-10.2) mg/dL Total Protein 6.2 L (6.3-8.2) g/dL Albumin 2.6 L (3.5-5.0) g/dL Urine Protein (Negative) Urine Bacteria (None) /hpf Hyaline Casts (0-2) /lpf Urine Mucus (None) /hpf Urine Yeast (Budding) (None) /hpf Microbiology - Last 24 Hours (Table) 08/09/18 11:00 Blood Culture - Preliminary Blood No Growth after 24 hours Assessment and Plan Plan: Assessment and plan #1 systolic congestive heart failure acute on chronic. Echocardiogram with Doppler study performed on this admission showed an ejection fraction of 20-25% . Moderate aortic stenosis, severe mitral regurg, severe tricuspid regurg, severe pulmonary hypertension. We will continue current dose of IV Lasix. #2 uncontrolled hypertension #3 chronic persistent atrial fibrillation with controlled ventricular response #4 acute on chronic kidney injury #5 abnormal troponin #6 hypothyroidism #7 history of left below the knee amputation #8 inguinal hernia, reduced this morning Plan From cardiology's perspective, we'll continue the patient on current dose of IV Lasix, continue to monitor intake and output along with daily weights and daily lytes BUN and creatinine. We will add a small dose of angiotensin herb to his medication today. DNP note has been reviewed, I agree with a documented findings and plan of care. Patient was seen and examined.
[2018-08-11 11:45] LABS: Glucose,Whole Blood 135 mg/dL (75-99)
[2018-08-11] MEDS: SODIUM CHLORIDE 0.9% 1,000 ML IV SCH (12:15)
[2018-08-11] MEDS: LOSARTAN 25 MG TAB PO SCH (12:33)
--- NOTE | 2018-08-11 12:33 | P.PN ---
Subjective Progress Note Date: 08/11/18 This is a 83-year-old male with a recent prolonged hospitalization earlier in July for sepsis with possible ischemic colitis. Patient completed a course antibiotics as of yesterday with Ceftin and Flagyl. Her patient's caregivers patient has been more short of breath especially with activity. They 've noted significant right lower extremity edema and edema in the back as well. Patient also started complaining of abdominal pain. No nausea or vomiting. Decreased appetite. Having small bowel movements and constipation. Patient was brought into the emergency room for further evaluation and treatment for congestive heart failure exacerbation. BNP was 84,500. Chest x- ray reports to correlate for CHF with interstitial pulmonary edema and mass like area of opacity in the right mid lung. Patient started on IV Lasix. Also note her caregivers that Lasix had been decreased from 40 mg daily down to 20 mg daily. Patient did have some acute kidney injury on his previous hospitalization in Lasix dose was adjusted. Patient also has a known history of chronic atrial fibrillation in which she is anticoagulated with Coumadin, COPD, diabetes mellitus, GERD, hyperlipidemia, hypertension, myocardial infarction, obstructive sleep apnea, congestive heart failure with an EF of 45- 50%. On admission patient also had elevated lactic acid of 3.4 troponin elevated at 0.085 creatinine 1.46. Pulmonary, cardiology and surgical consults have been placed. Patient has had abdominal pain in the center of his abdomen similar to his last admission. Patient is hard of hearing and most of history was obtained from the caregivers. On 08/10/2018 patient is currently resting comfortably in bed. At this time patient denies chest pain or shortness of breath. Patient denies any urinary frequency or burning. Patient denies nausea vomiting diarrhea 08/11/2018 patient resting comfortably. Patient awakes easily. No complaints of pain. He's had decrease in his weight from 87.2 kg to 85.5 kg. Remains on the IV Lasix. Creatinine has decreased from 1.56-1.39 INR 1.8. Objective - Vital Signs Vital signs: Vital Signs Temp 97.2 F L 08/11/18 04:56 Pulse 71 08/11/18 04:56 Resp 20 08/11/18 04:56 BP 168/93 08/11/18 04:56 Pulse Ox 97 08/11/18 04:56 Intake & Output 08/10/18 08/11/1818 18:59 06:59 18:59 Intake Total 100 240 Output Total 720 1000 Balance -620 -1000 240 Weight 87.2 kg 85.5 kg Intake: Oral 100 240 Output: Urine 720 1000 Other: Voiding Method Urinal Urinal Diaper Diaper # Voids 0 1 # Bowel Movements 1 - Exam Head normocephalic Neck supple Lungs clear to auscultation bilaterally no wheezing or crackles Heart regular rate and rhythm S1-S2, no rub or gallop Abdomen is soft nontender nondistended positive bowel sounds no hepatosplenomegaly Extremities +1 edema right lower extremity. Fluid blister has opened on the right tibia. No evidence of cellulitis. left [id number] amputation Neuro alert and orientated to 3 - Labs CBC & Chem 7: 08/11/18 06:19 08/11/18 06:19 Labs: Abnormal Lab Results - Last 24 Hours (Table) 08/10/18 08/10/18 08/11/18 Range/Units 18:00 20:40 06:19 RBC 4.12 L (4.30-5.90) m/uL Hgb 11.5 L (13.0-17.5) gm/dL Hct 37.2 L (39.0-53.0) % MCHC 30.8 L (31.0-37.0) g/dL RDW 18.2 H (11.5-15.5) % PT (9.0-12.0) sec INR (<1.2) BUN (9-20) mg/dL Creatinine (0.66-1.25) mg/dL POC Glucose (mg/dL) 109 H (75-99) mg/dL Calcium (8.4-10.2) mg/dL Total Protein (6.3-8.2) g/dL Albumin (3.5-5.0) g/dL Urine Protein 1+ H (Negative) Urine Bacteria Rare H (None) /hpf Hyaline Casts 8 H (0-2) /lpf Urine Mucus Rare H (None) /hpf Urine Yeast (Budding) Occasional H (None) /hpf 08/11/18 08/11/18 08/11/18 Range/Units 06:19 06:19 11:33 RBC (4.30-5.90) m/uL Hgb (13.0-17.5) gm/dL Hct (39.0-53.0) % MCHC (31.0-37.0) g/dL RDW (11.5-15.5) % PT 16.2 H (9.0-12.0) sec INR 1.8 H (<1.2) BUN 33 H (9-20) mg/dL Creatinine 1.39 H (0.66-1.25) mg/dL POC Glucose (mg/dL) 135 H (75-99) mg/dL Calcium 8.3 L (8.4-10.2) mg/dL Total Protein 6.2 L (6.3-8.2) g/dL Albumin 2.6 L (3.5-5.0) g/dL Urine Protein (Negative) Urine Bacteria (None) /hpf Hyaline Casts (0-2) /lpf Urine Mucus (None) /hpf Urine Yeast (Budding) (None) /hpf Microbiology - Last 24 Hours (Table) 08/09/18 11:00 Blood Culture - Preliminary Blood No Growth after 24 hours Assessment and Plan Assessment: 1. Acute systolic CHF exacerbation with Shortness of breath with lower extremity edema. Echo shows an EF of 20-25% moderate aortic stenosis severe mitral regurgitation severe trace tricuspid regurgitation and severe pulmonary hypertension. Continue IV Lasix. Cardiology is following. 2. Abdominal pain with recent admission with sepsis and colitis. patient completed antibiotic course 3. Acute on chronic kidney injury, stage III: Nephrology following. Acute kidney injury likely a component of cardiorenal syndrome. 4. Elevated lactic acid level. Repeat in a.m. 5. Chronic atrial fibrillation anticoagulated. Continue Coumadin 2.5 mg daily 6. Elevated troponin consult cardiology. Continue monitor cardiac enzymes 7. Severe protein calorie malnutrition: Add Glucerna shakes 8. Possible diabetes mellitus: add sliding scale coverage and A1c 6.0. Patient not requiring insulin 9. pseudotumors within the right lung previous is noted on previous CAT scan and chest x-rays. Pulmonary service following 10. Hypothyroidism continue Synthroid 11. Hypomagnesemia give magnesium supplement. Repeat magnesium level 12. Right inguinal hernia that was reduced by surgical service. No surgical intervention until patient is medically stable. 13. Right tibia wound from an open blister. Consult infectious disease for wound care. GI prophylaxis Protonix and DVT prophylaxis Coumadin I performed an examination of the patient and discussed their management with the physician Medical Billing Specialist. I have reviewed the Physician Medical Billing Specialist's notes and agree with the documented findings and plan of care
--- NOTE | 2018-08-11 14:47 | P.PN ---
Subjective Progress Note Date: 08/11/18 83-year-old male seen this morning physical therapy at the bedside sitting up on the edge of the bed patient extremely hard of hearing. When questioning patient currently is denying any abdominal pain. Patient is more awake and more alert this morning no nausea no vomiting no frequent stooling Objective - Vital Signs Vital signs: Vital Signs Temp 97.5 F L 08/11/18 08:00 Pulse 48 L 08/11/18 12:00 Resp 20 08/11/18 12:00 BP 128/64 08/11/18 12:00 Pulse Ox 97 08/11/18 12:00 Intake & Output 08/10/18 08/11/18 08/11/18 18:59 06:59 18:59 Intake Total 100 240 Output Total 720 1000 Balance -620 -1000 240 Weight 87.2 kg 85.5 kg Intake: Oral 100 240 Output: Urine 720 1000 Other: Voiding Method Urinal Urinal Urinal Diaper Diaper Diaper # Voids 0 1 # Bowel Movements 1 - Constitutional Constitutional Comment(s): Physical exam A 83-year-old male sitting up on the edge of the bed with physical therapy appears in no acute distress Lungs diminished bases otherwise adequate air movement Heart S1-S2 audible irregular Abdomen soft nondistended nontender bowel tones present no nausea no vomiting states no abdominal pain Extremity left BKA 1+ nonpitting to the right lower extremity fluid blister on the right tibia no cellulitis left below the knee amputee - Labs CBC & Chem 7: 08/11/18 06:19 08/11/18 06:19 Labs: Abnormal Lab Results - Last 24 Hours (Table) 08/10/18 08/10/18 08/11/18 Range/Units 18:00 20:40 06:19 RBC 4.12 L (4.30-5.90) m/uL Hgb 11.5 L (13.0-17.5) gm/dL Hct 37.2 L (39.0-53.0) % MCHC 30.8 L (31.0-37.0) g/dL RDW 18.2 H (11.5-15.5) % PT (9.0-12.0) sec INR (<1.2) BUN (9-20) mg/dL Creatinine (0.66-1.25) mg/dL POC Glucose (mg/dL) 109 H (75-99) mg/dL Calcium (8.4-10.2) mg/dL Total Protein (6.3-8.2) g/dL Albumin (3.5-5.0) g/dL Urine Protein 1+ H (Negative) Urine Bacteria Rare H (None) /hpf Hyaline Casts 8 H (0-2) /lpf Urine Mucus Rare H (None) /hpf Urine Yeast (Budding) Occasional H (None) /hpf 08/11/18 08/11/18 08/11/18 Range/Units 06:19 06:19 11:33 RBC (4.30-5.90) m/uL Hgb (13.0-17.5) gm/dL Hct (39.0-53.0) % MCHC (31.0-37.0) g/dL RDW (11.5-15.5) % PT 16.2 H (9.0-12.0) sec INR 1.8 H (<1.2) BUN 33 H (9-20) mg/dL Creatinine 1.39 H (0.66-1.25) mg/dL POC Glucose (mg/dL) 135 H (75-99) mg/dL Calcium 8.3 L (8.4-10.2) mg/dL Total Protein 6.2 L (6.3-8.2) g/dL Albumin 2.6 L (3.5-5.0) g/dL Urine Protein (Negative) Urine Bacteria (None) /hpf Hyaline Casts (0-2) /lpf Urine Mucus (None) /hpf Urine Yeast (Budding) (None) /hpf Microbiology - Last 24 Hours (Table) 08/09/18 11:00 Blood Culture - Preliminary Blood No Growth after 48 hours Assessment and Plan Assessment: Impression Present on admission abdominal pain suspect due to right inguinal hernia CT abdomen and pelvis indicate no obstruction air-fluid loop of colon noted Per advance directives no CODE STATUS Dementia with no behavior disturbance Chronic atrial fibrillation on long-term anticoagulation Coumadin History of a left below the knee amputation Ultrasound prior admission showed dilated gallbladder possible cholecystitis Severe protein calorie malnutrition Masslike area in the right midlung Abdominal pain with a recent admission sepsis colitis. Thanks Elevated troponin suspect due to elevated creatinine Present on admission shortness of breath suspect due to an acute exacerbation of chronic systolic heart failure EF on a current echo severely impaired between 20 and 25% Debilitated chronic limited ability to participate in ADLs Ultrasound of gallbladder done 07/22/2018 showed thickening gallbladder wall Inguinal hernia manually reduced this admission Plan Surgery will be on hold until patient is medically stable from a pulmonary and cardiology perspective Cardiology's recommendations noted and appreciated patient to be diuresed for an acute exacerbation of systolic heart failure recommending holding surgery until patient is medically stable Continue recommendations by cardiology Lasix 40 IV every 12 per cardiology's recommendations monitor electrolytes and renal function Will follow surgically with you addressing surgical issues as they arise Pain control DVT and GI prophylaxis Further surgical recommendations pending Anticipate doing surgery on Wednesday the 17 of August cardiology and pulmonary cleared The above impression and plan of care have been discussed and directed by signing physician. Anita Fortune nurse practitioner acting as scribe for signing physician.
--- NOTE | 2018-08-11 16:44 | P.PN ---
Subjective Progress Note Date: 08/11/18 This is a 83-year-old white male patient who was brought to the emergency department by a family member for complaint of abdominal pain, shortness of breath related to increased pain. Abdominal pain is in the right lower quadrant. Patient was recently in the hospital with lower abdominal pain, with lactic acidosis. CT of the abdomen showed prominent fluid within mildly thickened mid to lower abdominal small bowel loops, patient was treated for enterocolitis with Rocephin and Flagyl, was sent home on Cipro and Flagyl at discharge. During that admission patient also had abnormal LFTs with dilated gallbladder, ultrasound of the gallbladder showed large gallbladder with mild wall thickening and pericolic cystic fluid consistent with cholecystitis, no gallstones. He was medically treated, improved, and discharged home on 2017. C. diff was negative. 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 Chest x-ray was completed in the emergency department showed interstitial pulmonary edema, masslike areas of opacity at the midlung levels representing pseudotumors the previously seen on CAT scans and chest x-rays. CT of the abdomen and pelvis with no bowel obstruction or pneumoperitoneum. It showed interval development of right inguinal hernia, possible incarceration. She was seen by surgery, and the right inguinal hernia was manually reduced. There were bilateral pleural effusions seen on the CT of abdomen and pelvis. Lab work was reviewed, no leukocytosis, WBC is 5.5, hemoglobin is 11.2, INR is 2.7, and 39, potassium is 4.1, CO2 is 21, BUN is 32 and creatinine is 1.46. Patient was started on IV Lasix 40 mg every 12 hours, he denies chest pain at this time , currently in no acute distress, she is on 4 L per nasal cannula and his pulse ox was 100%, afebrile, and this afternoon axillary temperatures of 95.4, not sure how accurate these temperatures are, his skin is dry and warm. Blood pressures are 132/88, patient is urinating per urinal. Lung sounds are diminished bilateral bases, patient has a congested cough. There is 1+ pitting edema in his right lower extremity, and there are open wounds on his right lynch area with small amount of yellow drainage. This is covered with a dressing. On 08/11/2018 I'm seeing this patient for a follow-up. He was in consultation yesterday. He is an elderly male patient who came with abdominal pain that was attributed to an incarcerated right inguinal hernia that was reduced by general surgery. The patient is not having any significant abdominal pain today. He has however multiple medical problems and comorbidities that were listed earlier. He is resting comfortably in bed. He is afebrile. No nausea vomiting or emesis. No chest pain. He is known to have coronary artery disease , congestion heart failure, CHF with ejection fraction 45-50%, chronic atrial fibrillation, previous history of BKA of the left lower extremity, dementia, hypertension, BPH and previous history of pseudotumors in his lungs the largest one being on the right and he has had previous admissions to the intensive care unit it was taken care of and the patient was discharged successfully. Currently, the patient is resting comfortably in bed. He is on Lasix to optimize volume status and is receiving 40 mg of IV Lasix every 12 hours. He has been on long-term articulation with warfarin with an INR of 1.8. Renal function is stable with a creatinine of 1.39. White cell count is not elevated. Objective - Vital Signs Vital signs: Vital Signs Temp 97.5 F L 08/11/18 08:00 Pulse 48 L 08/11/18 12:00 Resp 20 08/11/18 12:00 BP 128/64 08/11/18 12:00 Pulse Ox 97 08/11/18 12:00 Intake & Output 08/10/18 08/11/18 08/11/18 18:59 06:59 18:59 Intake Total 100 240 Output Total 720 1000 Balance -620 -1000 240 Weight 87.2 kg 85.5 kg Intake: Oral 100 240 Output: Urine 720 1000 Other: Voiding Method Urinal Urinal Urinal Diaper Diaper Diaper # Voids 0 1 # Bowel Movements 1 - Exam GENERAL EXAM: Alert, pleasant, 83-year-old white male, very hard of hearing comfortable in no apparent distress. HEAD: Normocephalic/atraumatic. EYES: Normal reaction of pupils, equal size. Conjunctiva pink, sclera white. NOSE: Clear with pink turbinates. THROAT: No erythema or exudates. NECK: No masses, no JVD, no thyroid enlargement, no adenopathy. CHEST: No chest wall deformity. Symmetrical expansion. Diminished breath sounds at bases, and has a congested cough LUNGS: Equal air entry with no crackles, wheeze, rhonchi or dullness. Congestive cough, diminished breath sounds CVS: Irregular rate and rhythm, normal S1 and S2, no gallops, no murmurs, no rubs ABDOMEN: Soft, nontender. No hepatosplenomegaly, normal bowel sounds, no guarding or rigidity. EXTREMITIES: No clubbing, no cyanosis, 2+ pulses and upper and lower extremities. Right lower extremity edema, there is open weeping wound on his right anterior lynch area, with smoldering yellow drainage MUSCULOSKELETAL: Muscle strength and tone normal. SPINE: No scoliosis or deformity SKIN: No rashes CENTRAL NERVOUS SYSTEM: Alert and oriented -1. No focal deficits, tone is normal in all 4 extremities. - Labs CBC & Chem 7: 08/11/18 06:19 08/11/18 06:19 Labs: Abnormal Lab Results - Last 24 Hours (Table) 08/10/18 08/10/18 08/11/18 Range/Units 18:00 20:40 06:19 RBC 4.12 L (4.30-5.90) m/uL Hgb 11.5 L (13.0-17.5) gm/dL Hct 37.2 L (39.0-53.0) % MCHC 30.8 L (31.0-37.0) g/dL RDW 18.2 H (11.5-15.5) % PT (9.0-12.0) sec INR (<1.2) BUN (9-20) mg/dL Creatinine (0.66-1.25) mg/dL POC Glucose (mg/dL) 109 H (75-99) mg/dL Calcium (8.4-10.2) mg/dL Total Protein (6.3-8.2) g/dL Albumin (3.5-5.0) g/dL Urine Protein 1+ H (Negative) Urine Bacteria Rare H (None) /hpf Hyaline Casts 8 H (0-2) /lpf Urine Mucus Rare H (None) /hpf Urine Yeast (Budding) Occasional H (None) /hpf 08/11/18 08/11/18 08/11/18 Range/Units 06:19 06:19 11:33 RBC (4.30-5.90) m/uL Hgb (13.0-17.5) gm/dL Hct (39.0-53.0) % MCHC (31.0-37.0) g/dL RDW (11.5-15.5) % PT 16.2 H (9.0-12.0) sec INR 1.8 H (<1.2) BUN 33 H (9-20) mg/dL Creatinine 1.39 H (0.66-1.25) mg/dL POC Glucose (mg/dL) 135 H (75-99) mg/dL Calcium 8.3 L (8.4-10.2) mg/dL Total Protein 6.2 L (6.3-8.2) g/dL Albumin 2.6 L (3.5-5.0) g/dL Urine Protein (Negative) Urine Bacteria (None) /hpf Hyaline Casts (0-2) /lpf Urine Mucus (None) /hpf Urine Yeast (Budding) (None) /hpf Microbiology - Last 24 Hours (Table) 08/09/18 11:00 Blood Culture - Preliminary Blood No Growth after 48 hours Assessment and Plan Plan: #1. Acute abdominal pain, incarcerated right inguinal hernia. The patient was seen by general surgery and the hernia was reduced and the patient is asymptomatic for now. #2. Lactic acidosis, improved and the lactic acid level is down to 2.5 #3. Dyspnea related to bilateral pleural effusions, acute CHF exacerbation with her previously impaired systolic dysfunction . The patient presented with elevated proBNP level and pseudotumors in the lungs consistent with interstitial edema/effusion and the patient is currently on IV Lasix. #4. Recent hospitalization for abdominal pain, colitis, and sepsis. #5. Acute kidney injury, is renal function was impaired during his last hospitalization, patient was discharged home, creatinine of 1.63, current creatinine has improved, #6. Chronic atrial fibrillation on Coumadin #7. Elevated troponins #8. Pseudotumors within the right lung previously noted on previous CAT scans and chest x-rays #9. Hypothyroidism on thyroid mode replacement #10. 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 Right lower leg open wound . #12. History of dementia #13. Osteoarthritis #14. BPH #15. General medical debility, and impaired performance and functional status Plan Optimize CHF. Continue diuretics. Monitor the inguinal hernia and the hernia is reduced for now and it is asymptomatic. General surgeries on the case. In general the patient is a high risk for developing postoperative medical complications based on his age and comorbidities. He is being monitored conservatively regarding the right inguinal hernia that is reduced at this point in time. We'll continue to follow.
[2018-08-11 17:04] LABS: Glucose,Whole Blood 93 mg/dL (75-99)
[2018-08-11] MEDS ORDERED: WARFARIN 2.5 MG TAB PO SCH (18:00)
[2018-08-11 21:03] LABS: Glucose,Whole Blood 88 mg/dL (75-99)
[2018-08-11] MEDS: SERTRALINE 50 MG TAB PO SCH (22:00)
--- NOTE | 2018-08-12 01:12 | CONS ---
CONSULTATION DATE OF SERVICE: 08/09/2018. REASON FOR CONSULTATION: Right leg wound. HISTORY OF PRESENT ILLNESS: The patient is an 83-year-old male who was recently admitted to this facility with the patient noted for sepsis secondary to possible ischemic colitis, treated medically. The patient subsequently did stabilize and was discharged home on a short course of oral Ceftin and Flagyl. The patient has been brought back to the [facility] ER on 08/09/2018 with chief complaint of increasing shortness of breath. The patient was evaluated by the home care nurse and suggested to go to the hospital. Apparently there were bilateral basal crackles. The patient was also complaining of pain in his abdominal area. The pain was mostly in the lower abdomen with no associated nausea or vomiting or diarrhea. No high-grade fever. With these symptoms, the patient was evaluated by the ER physician. On arrival and to the ER the patient has been afebrile. White count normal. The patient did have a CT of the abdomen and pelvis which did show interval development of right inguinal hernia with no evidence of bowel obstruction. No pneumoperitoneum or pneumatosis. Subsequently evaluated by surgery and did have a manual reduction of the same. The patient did have a right leg wound that was new compared to since he left the hospital, for which I was asked to see the patient for further recommendation. When asked specifically, the patient was unable to tell me how he got this wound or if he had any falls. The patient denied significant pain to that leg wound area, any surrounding swelling, redness or any drainage. Overall the patient remains to be a poor historian so most of the information has been obtained from prior review of the chart. REVIEW OF SYSTEMS: Positive points have been mentioned in HPI. The rest of the systems review has been negative. PAST MEDICAL HISTORY: Hypertension, hyperlipidemia, atrial fibrillation, gastroesophageal reflux disease, prostate disorder, heart failure, COPD. PAST SURGICAL HISTORY: Bilateral knee replacement, bilateral rotator cuff repair, left BKA secondary to infection. SOCIAL HISTORY: Remote history of smoking. No drug use. FAMILY HISTORY: No pertinent findings noticed. ALLERGIES: No known drug allergies. MEDICATIONS: Currently include the patient is on: 1. Norvasc. 2. Aspirin. 3. Lasix. 4. Hydralazine. 5. Dilaudid. 6. NovoLog. 7. Synthroid. 8. Cozaar. 9. Lopressor. 10.Nitro-bid. 11.Zofran. 12.Protonix. 13.Senokot. 14.Zoloft. 15.Carafate. 16.Coumadin. EXAMINATION: Blood pressure 123/57 with a pulse of 74, temperature is 97.1. He is 97% on 3L nasal cannula. GENERAL DESCRIPTION: An elderly male up in the chair in no distress. No tachypnea or accessory muscle for respiration use. HEENT: Shows pallor. No scleral icterus. Oral mucosa is dry. No pharyngeal erythema present. NECK: Trachea central. No thyromegaly. LUNGS: Unlabored breathing. Clear to auscultation anteriorly. No wheeze or crackle. HEART: S1 and S2. Regular rate and rhythm. ABDOMEN: Soft, no tenderness. No guarding or rigidity. EXTREMITIES: Right leg did have a wound, which is mostly superficial. No sign of surrounding swelling or redness or any foul-smelling drainage or slough tissue. NEUROLOGIC: The patient is awake, alert, oriented x3. Mood and affect normal. LABS: Hemoglobin is 11.5, white count 6.4, BUN of 33, creatinine 1.39. Blood culture obtained has been negative so far. CT report as mentioned above. DIAGNOSTIC IMPRESSION AND PLAN: Patient with right leg wound, more likely traumatic, with no evidence of any secondary cellulitis. We will recommend local wound care. The patient is currently not running fever and did have elevated white count. PLAN: 1. Aquacel Silver dressing to the leg wound followed by [facility] [place], to be changed every 48 hours. 2. No need for systemic antibiotic therapy. 3. We will follow clinical condition to further adjust medication if needed. Thank you for this consultation. Will follow this patient along with you. MMODL / IJN: [id number] /
[2018-08-12 06:21] LABS: Glucose,Whole Blood 71 mg/dL (75-99)
[2018-08-12] MEDS: INSULIN ASPART 100 UNIT/ML 1 ML 10 ML VIAL SQ SCH ×4 (06:29→22:08)
[2018-08-12] MEDS: PANTOPRAZOLE 40 MG TABLET PO SCH ×2 (06:32→18:12)
[2018-08-12] MEDS: LEVOTHYROXINE 25 MCG TAB PO SCH (06:32)
[2018-08-12 06:41] LABS: Anisocytosis Slight; Basophils % (A) 0 %; Eosinophils # (A) 0.1 k/uL (0-0.7); Eosinophils % (A) 2 %; HCT 33.8 % (39.0-53.0); HGB 10.5 gm/dL (13.0-17.5); Hypochromasia Moderate; Lymphocytes # (A) 0.9 k/uL (1.0-4.8); Lymphocytes % (A) 20 %; MCH 27.7 pg (25.0-35.0); MCHC 31.1 g/dL (31.0-37.0); Mean Platelet Volume 8.4; Monocytes # (A) 0.3 k/uL (0-1.0); Monocytes % (A) 6 %; Neutrophils # (A) 3.2 k/uL (1.3-7.7); Neutrophils % (A) 71 %; Platelet Count 178 k/uL (150-450); RDW 18.1 % (11.5-15.5); WBC 4.5 k/uL (3.8-10.6)
[2018-08-12 06:52] LABS: Albumin 2.4 g/dL (3.5-5.0); Calcium 8.2 mg/dL (8.4-10.2); INR 1.7 (<1.2); Potassium 3.1 mmol/L (3.5-5.1); Prothrombin Time 15.6 sec (9.0-12.0); Total Bilirubin 0.5 mg/dL (0.2-1.3); Total Protein 5.7 g/dL (6.3-8.2)
[2018-08-12] MEDS ORDERED: POTASSIUM CHLORIDE ER 20 MEQ TAB.ER PO STA (09:31)
[2018-08-12] MEDS: NITROGLYCERIN OINT 1 INCH/GM PACKET TOPICAL SCH ×4 (10:13→20:16)
[2018-08-12] MEDS: FUROSEMIDE 10 MG/ML 4 ML VIAL IV SCH ×2 (10:13→20:16)
[2018-08-12] MEDS: LOSARTAN 25 MG TAB PO SCH (10:13)
[2018-08-12] MEDS: ASPIRIN 81 MG PO SCH (10:13)
[2018-08-12] MEDS: SUCRALFATE 1 GM TAB PO SCH ×4 (10:13→20:16)
[2018-08-12] MEDS: hydrALAZINE HCL 50 MG TAB PO SCH ×3 (10:13→20:16)
[2018-08-12] MEDS: amLODIPine 5 MG TAB PO SCH (10:13)
[2018-08-12] MEDS: SENNOSIDES 8.6 MG TAB PO SCH (10:14)
[2018-08-12] MEDS ORDERED: MINERAL OIL-WHITE PETROLATUM 120 GM JAR TOPICAL PRN (10:40)
--- NOTE | 2018-08-12 10:43 | P.PN ---
<Lanie Fortunene M - Last Filed: 08/12/18 10:35> Subjective Progress Note Date: 08/12/18 83-year-old male seen this morning at the bedside currently patient is denying any chest pain dizziness lightheadedness shortness of breath or abdominal pain. Patients being followed by surgery for incarcerated right inguinal hernia which was reduced at the bedside by currently the abdomen is soft nontender nondistended patients being followed by multiple consulting physicians Dr. Olivas infectious disease Dr. tidwell for pulmonary White count is 4.5 electrolytes within normal limits INR 1.7 Objective - Vital Signs Vital signs: Vital Signs Temp 97.7 F 08/12/18 04:00 Pulse 74 08/12/18 04:00 Resp 15 08/12/18 04:00 BP 143/78 08/12/18 04:00 Pulse Ox 93 L 08/12/18 08:03 Intake & Output 08/11/18 08/12/18 08/12/18 18:59 06:59 18:59 Intake Total 1440 140 600 Output Total 800 525 Balance 640 -385 600 Weight 84 kg Intake: IV 40 Invasive Line 1 40 Intake, IV Titration 100 Amount Sodium Chloride 0.9% 1, 100 000 ml @ 20 mls/hr IV . Q24H FOSTER Rx#:[id number] Oral 1440 600 Output: Urine 800 525 Other: Voiding Method Urinal Urinal Diaper # Voids 2 - Exam Physical exam 83-year-old male resting comfortably in bed appears in no acute distress very hard of hearing Lungs posterior decreased at the bases otherwise adequate air movement no wheezing rales or rhonchi noted Heart S1-S2 audible irregular Abdomen soft nondistended nontender denying abdominal pain no nausea no vomiting urinating no difficulty Extremities right lower extremity edema open wound to the right anterior lynch area. Left BKA - Labs CBC & Chem 7: 08/12/18 06:02 08/12/18 06:02 Labs: Abnormal Lab Results - Last 24 Hours (Table) 08/11/18 08/12/18 08/12/18 Range/Units 11:33 06:02 06:02 RBC 3.80 L (4.30-5.90) m/uL Hgb 10.5 L (13.0-17.5) gm/dL Hct 33.8 L (39.0-53.0) % RDW 18.1 H (11.5-15.5) % Lymphocytes # 0.9 L (1.0-4.8) k/uL PT 15.6 H (9.0-12.0) sec INR 1.7 H (<1.2) Potassium (3.5-5.1) mmol/L Carbon Dioxide (22-30) mmol/L BUN (9-20) mg/dL Creatinine (0.66-1.25) mg/dL POC Glucose (mg/dL) 135 H (75-99) mg/dL Calcium (8.4-10.2) mg/dL Total Protein (6.3-8.2) g/dL Albumin (3.5-5.0) g/dL 08/12/18 08/12/18 Range/Units 06:02 06:11 RBC (4.30-5.90) m/uL Hgb (13.0-17.5) gm/dL Hct (39.0-53.0) % RDW (11.5-15.5) % Lymphocytes # (1.0-4.8) k/uL PT (9.0-12.0) sec INR (<1.2) Potassium 3.1 L (3.5-5.1) mmol/L Carbon Dioxide 31 H (22-30) mmol/L BUN 29 H (9-20) mg/dL Creatinine 1.33 H (0.66-1.25) mg/dL POC Glucose (mg/dL) 71 L (75-99) mg/dL Calcium 8.2 L (8.4-10.2) mg/dL Total Protein 5.7 L (6.3-8.2) g/dL Albumin 2.4 L (3.5-5.0) g/dL Microbiology - Last 24 Hours (Table) 08/09/18 11:00 Blood Culture - Preliminary Blood No Growth after 48 hours Assessment and Plan Assessment: Impression Present on admission abdominal pain suspect due to right inguinal hernia CT abdomen and pelvis indicate no obstruction air-fluid loop of colon noted Per advance directives no CODE STATUS Dementia with no behavior disturbance Chronic atrial fibrillation on long-term anticoagulation Coumadin History of a left below the knee amputation Ultrasound prior admission showed dilated gallbladder possible cholecystitis Severe protein calorie malnutrition Masslike area in the right midlung Abdominal pain with a recent admission sepsis colitis. Thanks Elevated troponin suspect due to elevated creatinine Present on admission shortness of breath suspect due to an acute exacerbation of chronic systolic heart failure EF on a current echo severely impaired between 20 and 25% Debilitated chronic limited ability to participate in ADLs Ultrasound of gallbladder done 07/22/2018 showed thickening gallbladder wall Inguinal hernia manually reduced this admission Plan Surgery will be on hold until patient is medically stable from a pulmonary and cardiology perspective Continue recommendations by cardiology and pulmonary Lasix 40 IV every 12 per cardiology's recommendations monitor electrolytes and renal function DVT and GI prophylaxis Further surgical recommendations pending Anticipate doing surgery on Wednesday the 17 of August if cardiology and pulmonary cleared PT OT Progress note dictated for Dr. killian rounding on behalf of dr alcocer The above impression and plan of care have been discussed and directed by signing physician. Anita Fortune nurse practitioner acting as scribe for signing physician. <Sd Killian - Last Filed: 08/12/18 13:24> Objective - Vital Signs Vital signs: Vital Signs Temp 98 F 08/12/18 08:00 Pulse 78 08/12/18 12:00 Resp 18 08/12/18 12:00 BP 130/64 08/12/18 08:00 Pulse Ox 93 L 08/12/18 08:03 Intake & Output 08/11/18 08/12/18 08/12/18 18:59 06:59 18:59 Intake Total 1440 140 600 Output Total 800 525 200 Balance 640 -385 400 Weight 84 kg 84 kg Intake: IV 40 Invasive Line 1 40 Intake, IV Titration 100 Amount Sodium Chloride 0.9% 1, 100 000 ml @ 20 mls/hr IV . Q24H FOSTER Rx#:[id number] Oral 1440 600 Output: Urine 800 525 200 Other: Voiding Method Urinal Urinal Urinal Diaper # Voids 2 - Labs CBC & Chem 7: 08/12/18 06:02 08/12/18 06:02 Labs: Abnormal Lab Results - Last 24 Hours (Table) 08/12/18 08/12/18 08/12/18 Range/Units 06:02 06:02 06:02 RBC 3.80 L (4.30-5.90) m/uL Hgb 10.5 L (13.0-17.5) gm/dL Hct 33.8 L (39.0-53.0) % RDW 18.1 H (11.5-15.5) % Lymphocytes # 0.9 L (1.0-4.8) k/uL PT 15.6 H (9.0-12.0) sec INR 1.7 H (<1.2) Potassium 3.1 L (3.5-5.1) mmol/L Carbon Dioxide 31 H (22-30) mmol/L BUN 29 H (9-20) mg/dL Creatinine 1.33 H (0.66-1.25) mg/dL POC Glucose (mg/dL) (75-99) mg/dL Calcium 8.2 L (8.4-10.2) mg/dL Total Protein 5.7 L (6.3-8.2) g/dL Albumin 2.4 L (3.5-5.0) g/dL 08/12/18 08/12/18 Range/Units 06:11 11:36 RBC (4.30-5.90) m/uL Hgb (13.0-17.5) gm/dL Hct (39.0-53.0) % RDW (11.5-15.5) % Lymphocytes # (1.0-4.8) k/uL PT (9.0-12.0) sec INR (<1.2) Potassium (3.5-5.1) mmol/L Carbon Dioxide (22-30) mmol/L BUN (9-20) mg/dL Creatinine (0.66-1.25) mg/dL POC Glucose (mg/dL) 71 L 165 H (75-99) mg/dL Calcium (8.4-10.2) mg/dL Total Protein (6.3-8.2) g/dL Albumin (3.5-5.0) g/dL Microbiology - Last 24 Hours (Table) 08/09/18 11:00 Blood Culture - Preliminary Blood No Growth after 72 hours Assessment and Plan Assessment: As above. Patient complaints of right groin pain currently. Hernia is reducible on examination. Consideration for open herniorrhaphy under spinal anesthesia or local anesthesia. Will discuss further with pulmonary and cardiology.
--- NOTE | 2018-08-12 10:49 | P.PN ---
Subjective Progress Note Date: 08/12/18 This is a 83-year-old male with a recent prolonged hospitalization earlier in July for sepsis with possible ischemic colitis. Patient completed a course antibiotics as of yesterday with Ceftin and Flagyl. Her patient's caregivers patient has been more short of breath especially with activity. They 've noted significant right lower extremity edema and edema in the back as well. Patient also started complaining of abdominal pain. No nausea or vomiting. Decreased appetite. Having small bowel movements and constipation. Patient was brought into the emergency room for further evaluation and treatment for congestive heart failure exacerbation. BNP was 84,500. Chest x- ray reports to correlate for CHF with interstitial pulmonary edema and mass like area of opacity in the right mid lung. Patient started on IV Lasix. Also note her caregivers that Lasix had been decreased from 40 mg daily down to 20 mg daily. Patient did have some acute kidney injury on his previous hospitalization in Lasix dose was adjusted. Patient also has a known history of chronic atrial fibrillation in which she is anticoagulated with Coumadin, COPD, diabetes mellitus, GERD, hyperlipidemia, hypertension, myocardial infarction, obstructive sleep apnea, congestive heart failure with an EF of 45- 50%. On admission patient also had elevated lactic acid of 3.4 troponin elevated at 0.085 creatinine 1.46. Pulmonary, cardiology and surgical consults have been placed. Patient has had abdominal pain in the center of his abdomen similar to his last admission. Patient is hard of hearing and most of history was obtained from the caregivers. On 08/10/2018 patient is currently resting comfortably in bed. At this time patient denies chest pain or shortness of breath. Patient denies any urinary frequency or burning. Patient denies nausea vomiting diarrhea 08/11/2018 patient resting comfortably. Patient awakes easily. No complaints of pain. He's had decrease in his weight from 87.2 kg to 85.5 kg. Remains on the IV Lasix. Creatinine has decreased from 1.56-1.39 INR 1.8. 08/12/2018 patient remains on IV Lasix. Weight has decreased from 85.5-84 kg. Patient reported left lower rib pain during the evening improved with IV Dilaudid. Patient also has been having cardiac pauses up to 3 seconds. Toprol all had been decreased to 25 mg twice a day. Cardiology has been made aware of continue his cardiac pauses. Patient is also having some dry skin and itching near the IV site. Eucerin lotion has been ordered. Potassium 3.1. Hemoglobin down to 10.5. INR 1.7 creatinine decreased from 1.39-1.33 Objective - Vital Signs Vital signs: Vital Signs Temp 97.7 F 08/12/18 04:00 Pulse 74 08/12/18 04:00 Resp 15 08/12/18 04:00 BP 143/78 08/12/18 04:00 Pulse Ox 93 L 08/12/18 08:03 Intake & Output 08/11/18 08/12/18 08/12/18 18:59 06:59 18:59 Intake Total 1440 140 600 Output Total 800 525 Balance 640 -385 600 Weight 84 kg Intake: IV 40 Invasive Line 1 40 Intake, IV Titration 100 Amount Sodium Chloride 0.9% 1, 100 000 ml @ 20 mls/hr IV . Q24H [facility] Rx#:[id number] Oral 1440 600 Output: Urine 800 525 Other: Voiding Method Urinal Urinal Diaper # Voids 2 - Exam Head normocephalic Neck supple Lungs clear to auscultation bilaterally no wheezing or crackles Heart regular rate and rhythm S1-S2, no rub or gallop positive murmur Abdomen is soft nontender nondistended positive bowel sounds no hepatosplenomegaly Extremities +1 edema right lower extremity. Fluid blister has opened on the right tibia. No evidence of cellulitis. left [id number] amputation. Left arm antecubital area near IV site redness from dry skin and itching. Neuro alert and orientated to 3 hard of hearing - Labs CBC & Chem 7: 08/12/18 06:02 08/12/18 06:02 Labs: Abnormal Lab Results - Last 24 Hours (Table) 08/11/18 08/12/18 08/12/18 Range/Units 11:33 06:02 06:02 RBC 3.80 L (4.30-5.90) m/uL Hgb 10.5 L (13.0-17.5) gm/dL Hct 33.8 L (39.0-53.0) % RDW 18.1 H (11.5-15.5) % Lymphocytes # 0.9 L (1.0-4.8) k/uL PT 15.6 H (9.0-12.0) sec INR 1.7 H (<1.2) Potassium (3.5-5.1) mmol/L Carbon Dioxide (22-30) mmol/L BUN (9-20) mg/dL Creatinine (0.66-1.25) mg/dL POC Glucose (mg/dL) 135 H (75-99) mg/dL Calcium (8.4-10.2) mg/dL Total Protein (6.3-8.2) g/dL Albumin (3.5-5.0) g/dL 08/12/18 08/12/18 Range/Units 06:02 06:11 RBC (4.30-5.90) m/uL Hgb (13.0-17.5) gm/dL Hct (39.0-53.0) % RDW (11.5-15.5) % Lymphocytes # (1.0-4.8) k/uL PT (9.0-12.0) sec INR (<1.2) Potassium 3.1 L (3.5-5.1) mmol/L Carbon Dioxide 31 H (22-30) mmol/L BUN 29 H (9-20) mg/dL Creatinine 1.33 H (0.66-1.25) mg/dL POC Glucose (mg/dL) 71 L (75-99) mg/dL Calcium 8.2 L (8.4-10.2) mg/dL Total Protein 5.7 L (6.3-8.2) g/dL Albumin 2.4 L (3.5-5.0) g/dL Microbiology - Last 24 Hours (Table) 08/09/18 11:00 Blood Culture - Preliminary Blood No Growth after 48 hours Assessment and Plan Assessment: 1. Acute systolic CHF exacerbation with Shortness of breath with lower extremity edema. Echo shows an EF of 20-25% moderate aortic stenosis severe mitral regurgitation severe trace tricuspid regurgitation and severe pulmonary hypertension. Continue IV Lasix. Cardiology is following. 2. Abdominal pain with recent admission with sepsis and colitis. patient completed antibiotic course 3. Acute on chronic kidney injury, stage III: Nephrology following. Acute kidney injury likely a component of cardiorenal syndrome. 4. Elevated lactic acid level on admission 5. Chronic atrial fibrillation anticoagulated. INR 1.7. Give Coumadin 5 mg tonight. Continue monitor daily PT/INRs and dose Coumadin accordingly 6. Elevated troponin : Likely due to acute renal failure. Patient evaluated by cardiology 7. Severe protein calorie malnutrition: Add Glucerna shakes 8. Possible diabetes mellitus: add sliding scale coverage and A1c 6.0. Patient not requiring insulin . Blood sugar 71 this morning 9. pseudotumors within the right lung previous is noted on previous CAT scan and chest x-rays. Pulmonary service following 10. Hypothyroidism continue Synthroid 11. Hypomagnesemia give magnesium supplement. Repeat magnesium level 12. Right inguinal hernia that was reduced by surgical service. Surgery is recommending surgery August 17 for hernia repair when patient is cleared by cardiology and pulmonary service 13. Right tibia wound from an open blister. Patient seen by infectious disease. They are recommending local wound care with Aquacel Silver 14. Hypokalemia patient receiving potassium supplement 15. Anemia: Check iron studies. 16. Cardiac pauses: Continue telemetry monitoring. Discussed with cardiology will await their further recommendations. Metoprolol was decreased during this admission from 50 twice a day to 25 twice a day GI prophylaxis Protonix and DVT prophylaxis Coumadin I performed an examination of the patient and discussed their management with the physician Bioanalyst. I have reviewed the Physician Bioanalyst's notes and agree with the documented findings and plan of care
--- NOTE | 2018-08-12 10:56 | PN ---
PROGRESS NOTE Patient is seen for followup for acute kidney injury. Renal function is improved. Serum creatinine staying at about 1.3 mg/dL. Patient denies any significant pain. PHYSICAL EXAMINATION: Blood pressure was 143/78, heart rate 74 per minute. He is afebrile. Examination of the heart, S1, S2. Examination of the lungs, decreased breath sounds at the bases. Abdomen is soft, nontender. Examination of the lower extremities shows no edema in left lower extremity. Right lower extremity is currently wrapped. LABS: Show sodium 140, potassium 3.1, chloride 31, BUN 29, serum creatinine 1.33. ASSESSMENT: 1. Acute kidney injury, currently improved. Renal function staying stable. Patient has been voiding on his own and no nephrotoxic agents on board. Patient is maintained on Cozaar, which we can continue. 2. Hypokalemia, currently being replaced. Patient is maintained on IV Lasix, he is magnesium replete. 3. Right foot cellulitis and leg wound, maintained on antibiotics. 4. History of left below-knee amputation. 5. Right inguinal hernia. 6. Chronic atrial fibrillation maintained on Coumadin. 7. Congestive heart failure/volume overload on admission, currently on IV Lasix. 8. Cardiomyopathy, ejection fraction 20%-25% with acute on chronic systolic heart failure. 9. Severe pulmonary hypertension. PLAN: Continue with Lasix. We can switch to oral Lasix at the time of discharge. Replace potassium aggressively. MMODL / IJN: [id number] /
[2018-08-12 11:39] LABS: Glucose,Whole Blood 165 mg/dL (75-99)
[2018-08-12] MEDS: METOPROLOL TARTRATE 25 MG TAB PO SCH (11:58)
--- NOTE | 2018-08-12 13:42 | P.PN ---
Subjective Progress Note Date: 08/12/18 This is an 83-year-old gentleman who was brought to the hospital because his caregivers noted him to be significantly more short of breath. He also noticed a significant increase in his peripheral edema, he's been having a decreased appetite at home. Apparently was complaining of some abdominal discomfort as well. Patient was brought to the emergency room for further evaluation and treatment, currently receiving treatment for congestive heart failure exacerbation. BNP level on arrival 84,500. Chest x-ray showed CHF with interstitial pulmonary edema and a masslike area of opaque severe in the mid right lung. Continues to be on IV Lasix. Patient also has history of chronic atrial fibrillation, anticoagulated with Coumadin, COPD, sleep apnea, hypothyroidism, diabetes, left BKA, GERD, hyperlipidemia, hypertension, sleep apnea. Lactic acid was noted to be abnormal on admission at 3.4. Patient was seen and examined this morning, lying in bed, he is quite hard of hearing but answers questions appropriately. He feels his breathing has improved since yesterday and his weight is down 3 kg. He remains on Lasix 40 mg IV push every 12 hours. His BUN and creatinine are stable at 29 and 1.33. INR today 1.7. He is apparently anticipating hernia surgery next week. The patient was having bradycardia with apparent 3 second pauses, no rhythm strips reflect this, metoprolol was decreased from 50 mg twice a day to 25 mg twice a day. He apparently had bradycardia through the night but heart rate is good today. His metoprolol was held this morning. Objective - Vital Signs Vital signs: Vital Signs Temp 98 F 08/12/18 08:00 Pulse 78 08/12/18 12:00 Resp 18 08/12/18 12:00 BP 130/64 08/12/18 08:00 Pulse Ox 93 L 08/12/18 08:03 Intake & Output 08/11/18 08/12/18 08/12/18 18:59 06:59 18:59 Intake Total 1440 140 600 Output Total 800 525 200 Balance 640 -385 400 Weight 84 kg 84 kg Intake: IV 40 Invasive Line 1 40 Intake, IV Titration 100 Amount Sodium Chloride 0.9% 1, 100 000 ml @ 20 mls/hr IV . Q24H [facility] Rx#:[id number] Oral 1440 600 Output: Urine 800 525 200 Other: Voiding Method Urinal Urinal Urinal Diaper # Voids 2 - Exam PHYSICAL EXAMINATION: HEENT: Head is atraumatic, normocephalic. Pupils equal, round. Neck is supple. There is no elevated jugular venous pressure. Extremely hard of hearing HEART EXAMINATION: Heart sounds irregularly irregular, S1 and S2 with a systolic murmur. CHEST EXAMINATION: Lungs are clear to auscultation and precussion. No chest wall tenderness is noted on palpation or with deep breathing. ABDOMEN: Soft, nontender. Bowel sounds are heard. No organomegaly noted. EXTREMITIES: 2+ peripheral pulses with no evidence of peripheral edema and no calf tenderness noted. NEUROLOGIC patient is awake, alert and oriented x3. . - Labs CBC & Chem 7: 08/12/18 06:02 08/12/18 06:02 Labs: Abnormal Lab Results - Last 24 Hours (Table) 08/12/18 08/12/18 08/12/18 Range/Units 06:02 06:02 06:02 RBC 3.80 L (4.30-5.90) m/uL Hgb 10.5 L (13.0-17.5) gm/dL Hct 33.8 L (39.0-53.0) % RDW 18.1 H (11.5-15.5) % Lymphocytes # 0.9 L (1.0-4.8) k/uL PT 15.6 H (9.0-12.0) sec INR 1.7 H (<1.2) Potassium 3.1 L (3.5-5.1) mmol/L Carbon Dioxide 31 H (22-30) mmol/L BUN 29 H (9-20) mg/dL Creatinine 1.33 H (0.66-1.25) mg/dL POC Glucose (mg/dL) (75-99) mg/dL Calcium 8.2 L (8.4-10.2) mg/dL Total Protein 5.7 L (6.3-8.2) g/dL Albumin 2.4 L (3.5-5.0) g/dL 08/12/18 08/12/18 Range/Units 06:11 11:36 RBC (4.30-5.90) m/uL Hgb (13.0-17.5) gm/dL Hct (39.0-53.0) % RDW (11.5-15.5) % Lymphocytes # (1.0-4.8) k/uL PT (9.0-12.0) sec INR (<1.2) Potassium (3.5-5.1) mmol/L Carbon Dioxide (22-30) mmol/L BUN (9-20) mg/dL Creatinine (0.66-1.25) mg/dL POC Glucose (mg/dL) 71 L 165 H (75-99) mg/dL Calcium (8.4-10.2) mg/dL Total Protein (6.3-8.2) g/dL Albumin (3.5-5.0) g/dL Microbiology - Last 24 Hours (Table) 08/09/18 11:00 Blood Culture - Preliminary Blood No Growth after 72 hours Assessment and Plan Assessment: #1 systolic congestive heart failure acute on chronic. Echocardiogram with Doppler study performed on this admission showed an ejection fraction of 20-25% . Moderate aortic stenosis, severe mitral regurg, severe tricuspid regurg, severe pulmonary hypertension. We will continue current dose of IV Lasix. #2 uncontrolled hypertension #3 chronic persistent atrial fibrillation with controlled ventricular response #4 acute on chronic kidney injury #5 abnormal troponin #6 hypothyroidism #7 history of left below the knee amputation #8 inguinal hernia, reduced this morning Plan: From cardiology's perspective, we'll decrease metoprolol to 12.5 mg by mouth twice a day. Continue to monitor heart rates.. Continue to monitor intake and output along with daily weights and renal function. We will continue to follow the patient provide further recommendations accordingly. The above dictated assessment and findings were discussed with signing physician. The impression and plan of care have been directed as dictated. Franny Mcmullen, Nurse Practitioner, acting as scribe for signing physician.
--- NOTE | 2018-08-12 14:04 | P.PN ---
Subjective Progress Note Date: 08/12/18 Principal diagnosis: Code abdominal pain, incarcerated right inguinal hernia, dyspnea, pleural effusions, acute CHF exacerbation This is a 83-year-old white male patient who was brought to the emergency department by a family member for complaint of abdominal pain, shortness of breath related to increased pain. Abdominal pain is in the right lower quadrant. Patient was recently in the hospital with lower abdominal pain, with lactic acidosis. CT of the abdomen showed prominent fluid within mildly thickened mid to lower abdominal small bowel loops, patient was treated for enterocolitis with Rocephin and Flagyl, was sent home on Cipro and Flagyl at discharge. During that admission patient also had abnormal LFTs with dilated gallbladder, ultrasound of the gallbladder showed large gallbladder with mild wall thickening and pericolic cystic fluid consistent with cholecystitis, no gallstones. He was medically treated, improved, and discharged home on 2017. C. diff was negative. 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 Chest x-ray was completed in the emergency department showed interstitial pulmonary edema, masslike areas of opacity at the midlung levels representing pseudotumors the previously seen on CAT scans and chest x-rays. CT of the abdomen and pelvis with no bowel obstruction or pneumoperitoneum. It showed interval development of right inguinal hernia, possible incarceration. She was seen by surgery, and the right inguinal hernia was manually reduced. There were bilateral pleural effusions seen on the CT of abdomen and pelvis. Lab work was reviewed, no leukocytosis, WBC is 5.5, hemoglobin is 11.2, INR is 2.7, and 39, potassium is 4.1, CO2 is 21, BUN is 32 and creatinine is 1.46. Patient was started on IV Lasix 40 mg every 12 hours, he denies chest pain at this time , currently in no acute distress, she is on 4 L per nasal cannula and his pulse ox was 100%, afebrile, and this afternoon axillary temperatures of 95.4, not sure how accurate these temperatures are, his skin is dry and warm. Blood pressures are 132/88, patient is urinating per urinal. Lung sounds are diminished bilateral bases, patient has a congested cough. There is 1+ pitting edema in his right lower extremity, and there are open wounds on his right lynch area with small amount of yellow drainage. This is covered with a dressing. On 08/11/2018 I'm seeing this patient for a follow-up. He was in consultation yesterday. He is an elderly male patient who came with abdominal pain that was attributed to an incarcerated right inguinal hernia that was reduced by general surgery. The patient is not having any significant abdominal pain today. He has however multiple medical problems and comorbidities that were listed earlier. He is resting comfortably in bed. He is afebrile. No nausea vomiting or emesis. No chest pain. He is known to have coronary artery disease , congestion heart failure, CHF with ejection fraction 45-50%, chronic atrial fibrillation, previous history of BKA of the left lower extremity, dementia, hypertension, BPH and previous history of pseudotumors in his lungs the largest one being on the right and he has had previous admissions to the intensive care unit it was taken care of and the patient was discharged successfully. Currently, the patient is resting comfortably in bed. He is on Lasix to optimize volume status and is receiving 40 mg of IV Lasix every 12 hours. He has been on long-term articulation with warfarin with an INR of 1.8. Renal function is stable with a creatinine of 1.39. White cell count is not elevated. On 08/12/2018 patient seen in follow-up on selective care unit. She is sitting up in a chair, patient is extremely hard of hearing, and difficult to communicate with, eyes any acute distress, although he still has some discomfort in the groin area, states in the private area. No abdominal discomfort. Patient did have a bowel movement yesterday. He is tolerating oral intake, no nausea or vomiting, 3 days per nasal cannula, his pulse ox is 93 %, he is afebrile, respirations are nonlabored, lung sounds are positive for bilateral lower base crackles. Patient is being diuresed, remains on Lasix 40 mg every 12 hours. Denies any chest pain. Remains in A. fib. Rate controlled. Obtain repeat chest x-ray tomorrow, but surgery on August for repair of right inguinal herniam, once optimized medically from pulmonary and cardiology standpoint. Objective - Vital Signs Vital signs: Vital Signs Temp 98 F 08/12/18 08:00 Pulse 78 08/12/18 12:00 Resp 18 08/12/18 12:00 BP 130/64 08/12/18 08:00 Pulse Ox 93 L 08/12/18 08:03 Intake & Output 08/11/18 08/12/18 08/12/18 18:59 06:59 18:59 Intake Total 1440 140 600 Output Total 800 525 200 Balance 640 -385 400 Weight 84 kg 84 kg Intake: IV 40 Invasive Line 1 40 Intake, IV Titration 100 Amount Sodium Chloride 0.9% 1, 100 000 ml @ 20 mls/hr IV . Q24H [facility] Rx#:[id number] Oral 1440 600 Output: Urine 800 525 200 Other: Voiding Method Urinal Urinal Urinal Diaper # Voids 2 - Exam GENERAL EXAM: Alert, pleasant, 83-year-old white male, very hard of hearing comfortable in no apparent distress. HEAD: Normocephalic/atraumatic. EYES: Normal reaction of pupils, equal size. Conjunctiva pink, sclera white. NOSE: Clear with pink turbinates. THROAT: No erythema or exudates. NECK: No masses, no JVD, no thyroid enlargement, no adenopathy. CHEST: No chest wall deformity. Symmetrical expansion. Diminished breath sounds at bases, and has a congested cough LUNGS: Equal air entry with coarse bibasilar crackles, but no wheeze, rhonchi or dullness. Congestive cough, diminished breath sounds CVS: Irregular rate and rhythm, normal S1 and S2, no gallops, no murmurs, no rubs ABDOMEN: Soft, nontender. No hepatosplenomegaly, normal bowel sounds, no guarding or rigidity. EXTREMITIES: No clubbing, no cyanosis, 2+ pulses and upper and lower extremities. Right lower extremity edema, there is open weeping wound on his right anterior lynch area, with yellow drainage MUSCULOSKELETAL: Muscle strength and tone normal. SPINE: No scoliosis or deformity SKIN: No rashes CENTRAL NERVOUS SYSTEM: Alert and oriented -1. No focal deficits, tone is normal in all 4 extremities. - Labs CBC & Chem 7: 08/12/18 06:02 08/12/18 06:02 Labs: Abnormal Lab Results - Last 24 Hours (Table) 08/12/18 08/12/18 08/12/18 Range/Units 06:02 06:02 06:02 RBC 3.80 L (4.30-5.90) m/uL Hgb 10.5 L (13.0-17.5) gm/dL Hct 33.8 L (39.0-53.0) % RDW 18.1 H (11.5-15.5) % Lymphocytes # 0.9 L (1.0-4.8) k/uL PT 15.6 H (9.0-12.0) sec INR 1.7 H (<1.2) Potassium 3.1 L (3.5-5.1) mmol/L Carbon Dioxide 31 H (22-30) mmol/L BUN 29 H (9-20) mg/dL Creatinine 1.33 H (0.66-1.25) mg/dL POC Glucose (mg/dL) (75-99) mg/dL Calcium 8.2 L (8.4-10.2) mg/dL Total Protein 5.7 L (6.3-8.2) g/dL Albumin 2.4 L (3.5-5.0) g/dL 08/12/18 08/12/18 Range/Units 06:11 11:36 RBC (4.30-5.90) m/uL Hgb (13.0-17.5) gm/dL Hct (39.0-53.0) % RDW (11.5-15.5) % Lymphocytes # (1.0-4.8) k/uL PT (9.0-12.0) sec INR (<1.2) Potassium (3.5-5.1) mmol/L Carbon Dioxide (22-30) mmol/L BUN (9-20) mg/dL Creatinine (0.66-1.25) mg/dL POC Glucose (mg/dL) 71 L 165 H (75-99) mg/dL Calcium (8.4-10.2) mg/dL Total Protein (6.3-8.2) g/dL Albumin (3.5-5.0) g/dL Microbiology - Last 24 Hours (Table) 08/09/18 11:00 Blood Culture - Preliminary Blood No Growth after 72 hours Assessment and Plan Plan: Assessment: #1. Acute abdominal pain, incarcerated right inguinal hernia. #2. Lactic acidosis #3. Dyspnea related to bilateral pleural effusions, acute CHF exacerbation with her previously impaired systolic dysfunction . #4. Recent hospitalization for abdominal pain, colitis, and sepsis. #5. Acute kidney injury, is renal function was impaired during his last hospitalization, patient was discharged home, creatinine of 1.63, current creatinine has improved, they have 1.46. #6. Chronic atrial fibrillation on Coumadin, with INR of 2.7, #7. Elevated troponins #8. Pseudotumors within the right lung previously noted on previous CAT scans and chest x-rays #9. Hypothyroidism on thyroid mode replacement #10. 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 Right lower leg open wound . #12. History of dementia #13. Osteoarthritis #14. BPH #15. General medical debility, and impaired performance and functional status Plan: Continue the diuretics, obtain repeat chest x-ray in the morning, patient still has coarse bibasilar crackles. Continue antibiotic therapy. Patient's passing bowel movements,denies any abdominal pain, still has right inguinal area discomfort. Continue monitoring labs, renal profile and electrolytes. Accurate I & O's, and daily weights. I performed a history & physical examination of the patient and discussed their management with my nurse practitioner, Henny Walsh. I reviewed the nurse practitioner's note and agree with the documented findings and plan of care. Lung sounds are diminished, with bibasilar crackles. The findings and the impression was discussed with the patient. I attest to the documentation by the nurse practitioner. Time with Patient: Less than 30
--- NOTE | 2018-08-12 14:20 | PN ---
PROGRESS NOTE DATE OF SERVICE: 08/12/2018 REASON FOR FOLLOWUP: Right leg wound. INTERVAL HISTORY: The patient is currently afebrile. He is complaining of some pain to the lower abdominal area. He is currently on clear liquid, has been tolerating. No nausea, vomiting. Denies having any chest pain, shortness of breath or cough. pain to the right leg area. PHYSICAL EXAMINATION: On examination, blood pressure is 130/64 with a pulse of 80, temperature 98. He is 94% on 3 L nasal cannula. General description is an elderly male up in the chair in no distress. RESPIRATORY SYSTEM: Unlabored breathing, clear to auscultation anteriorly. HEART: S1, S2. Regular rate and rhythm. ABDOMEN: Soft, no tenderness. Right leg is currently dressed up, no obvious drainage on the dressing. LABS: Hemoglobin 10.5, white count 4.5. BUN of 29, creatinine 1.33. DIAGNOSTIC IMPRESSION AND PLAN: Patient with right leg wound with cellulitis. Continue local would care with Aquacel silver dressing, which is q.48 hours. No need for systemic antibiotic therapy. MMODL / IJN: [id number] /
--- NOTE | 2018-08-12 16:26 | XR ---
EXAMINATION TYPE: XR chest 1V portable DATE OF EXAM: 08/12/2018 COMPARISON: 08/11/2018 HISTORY: Congestive heart failure. Follow-up exam. Shortness of breath. TECHNIQUE: Single frontal view of the chest is obtained. FINDINGS: Basilar consolidation is seen within the right midlung. There is continued evidence of cep halization and septal prominence. Postoperative changes of both shoulders are noted. Heart is enlarge d. Small pleural effusions blunt the costophrenic angles. Skinfold overlies the left upper lateral th orax. IMPRESSION: Similar-appearing sequela of congestive heart failure. Masslike consolidation is seen wi thin the right midlung that may represent superimposed pneumonia or confluent pulmonary edema. Follow -up to resolution is recommended to ensure no underlying pulmonary mass.
[2018-08-12 16:50] LABS: Iron Saturation 19.64 (15.00-50.00)
[2018-08-12 17:15] LABS: Glucose,Whole Blood 76 mg/dL (75-99)
[2018-08-12] MEDS ORDERED: WARFARIN 5 MG TAB PO ONE (18:00)
[2018-08-12] MEDS: SODIUM CHLORIDE 0.9% 1,000 ML IV SCH (20:15)
[2018-08-12] MEDS: SERTRALINE 50 MG TAB PO SCH (20:16)
[2018-08-12] MEDS: METOPROLOL TARTRATE 12.5 MG TAB PO SCH (20:20)
[2018-08-12 21:36] LABS: Glucose,Whole Blood 74 mg/dL (75-99)
[2018-08-13 06:18] LABS: Glucose,Whole Blood 85 mg/dL (75-99)
[2018-08-13] MEDS: INSULIN ASPART 100 UNIT/ML 1 ML 10 ML VIAL SQ SCH ×4 (06:21→21:49)
[2018-08-13] MEDS: LEVOTHYROXINE 25 MCG TAB PO SCH (06:38)
[2018-08-13] MEDS: PANTOPRAZOLE 40 MG TABLET PO SCH ×2 (06:39→17:29)
[2018-08-13 06:53] LABS: Anisocytosis Slight; Basophils % (A) 0 %; Eosinophils # (A) 0.1 k/uL (0-0.7); Eosinophils % (A) 2 %; HCT 34.2 % (39.0-53.0); HGB 11.2 gm/dL (13.0-17.5); Hypochromasia Slight; Lymphocytes # (A) 0.9 k/uL (1.0-4.8); Lymphocytes % (A) 18 %; MCH 28.3 pg (25.0-35.0); MCHC 32.8 g/dL (31.0-37.0); MCV 86.2 fL (80.0-100.0); Mean Platelet Volume 7.8; Monocytes # (A) 0.3 k/uL (0-1.0); Monocytes % (A) 6 %; Neutrophils # (A) 3.5 k/uL (1.3-7.7); Neutrophils % (A) 73 %; Platelet Count 172 k/uL (150-450); Poikilocytosis Slight; RBC 3.97 m/uL (4.30-5.90); RDW 18.7 % (11.5-15.5); WBC 4.8 k/uL (3.8-10.6)
[2018-08-13 06:55] LABS: INR 1.8 (<1.2); Prothrombin Time 16.1 sec (9.0-12.0)
[2018-08-13 07:06] LABS: Albumin 2.5 g/dL (3.5-5.0); Calcium 8.2 mg/dL (8.4-10.2); Magnesium 1.4 mg/dL (1.6-2.3); Potassium 3.5 mmol/L (3.5-5.1); Total Bilirubin 0.7 mg/dL (0.2-1.3)
[2018-08-13] MEDS: NITROGLYCERIN OINT 1 INCH/GM PACKET TOPICAL SCH ×4 (08:37→21:51)
[2018-08-13] MEDS: ASPIRIN 81 MG PO SCH (08:37)
[2018-08-13] MEDS: METOPROLOL TARTRATE 12.5 MG TAB PO SCH ×2 (08:37→21:51)
[2018-08-13] MEDS: LOSARTAN 25 MG TAB PO SCH (08:37)
[2018-08-13] MEDS: hydrALAZINE HCL 50 MG TAB PO SCH ×3 (08:37→21:51)
[2018-08-13] MEDS: amLODIPine 5 MG TAB PO SCH (08:37)
[2018-08-13] MEDS: FUROSEMIDE 10 MG/ML 4 ML VIAL IV SCH ×2 (08:37→21:51)
[2018-08-13] MEDS: SENNOSIDES 8.6 MG TAB PO SCH (08:38)
[2018-08-13] MEDS: SODIUM CHLORIDE 0.9% 1,000 ML IV SCH (08:38)
[2018-08-13] MEDS: SUCRALFATE 1 GM TAB PO SCH ×4 (08:38→21:51)
[2018-08-13] MEDS: MAGNESIUM SULFATE-D5W PMX 1 GM in DEXTROSE/WATER 1 100ML.BAG IVPB SCH ×2 (11:26→12:33)
[2018-08-13 12:01] LABS: Glucose,Whole Blood 124 mg/dL (75-99)
--- NOTE | 2018-08-13 12:13 | P.PN ---
Subjective Progress Note Date: 08/13/18 This is an 83-year-old gentleman who was brought to the hospital because his caregivers noted him to be significantly more short of breath. He also noticed a significant increase in his peripheral edema, he's been having a decreased appetite at home. Apparently was complaining of some abdominal discomfort as well. Patient was brought to the emergency room for further evaluation and treatment, currently receiving treatment for congestive heart failure exacerbation. BNP level on arrival 84,500. Chest x-ray showed CHF with interstitial pulmonary edema and a masslike area of opaque severe in the mid right lung. Continues to be on IV Lasix. Patient also has history of chronic atrial fibrillation, anticoagulated with Coumadin, COPD, sleep apnea, hypothyroidism, diabetes, left BKA, GERD, hyperlipidemia, hypertension, sleep apnea. Lactic acid was noted to be abnormal on admission at 3.4. Patient was seen and examined this morning, lying in bed, he is quite hard of hearing but answers questions appropriately. He did complain this morning of feeling short of breath, when lying flat, this seemed to improve when we raise the head of his bed. Blood pressure this morning 132/80 with a heart rate in the 60s, 100% on 4 L of oxygen. White blood cell count 6.9, hemoglobin 11.2, platelet count 225. INR 2.2, sodium 142, potassium 4.3, BUN 33, creatinine 1.5. 08/11/2018 Patient was seen and examined this morning, still complaining of some shortness of breath, but does state that it's better than yesterday. Weight is down 2 kg today. White blood cell count 6.4, hemoglobin 11.5, platelet count 209. INR today 1.8. Sodium 139, potassium 3.5, BUN 33, creatinine 1.3. Chin used to be on IV Lasix. 08/13/2018. Patient was seen and examined this morning, he is up sitting in the chair today , breathing overall is stable. Looks significantly better overall. Weight is down a considerable amount today. Blood pressure this morning 130/70 with a heart rate of 90, 95% on 3 L of oxygen. White blood cell count 4.8, hemoglobin 11.2, platelet count 172. INR 1.8, sodium 142, potassium 3.5 which we have replaced, BUN 22, creatinine 1.1. Repeat chest x-ray was performed which does show some heart failure. There is also a masslike consolidation within the right midlung which could represent a superimposed pneumonia. Follow-up resolution is recommended to ensure no underlying pulmonary mass. We will continue IV Lasix. Objective - Vital Signs Vital signs: Vital Signs Temp 96.8 F L 08/13/18 08:00 Pulse 109 H 08/13/18 08:00 Resp 20 08/13/18 08:00 BP 146/78 08/13/18 08:00 Pulse Ox 90 L 08/13/18 08:00 Intake & Output 08/12/18 08/13/18 08/13/18 18:59 06:59 18:59 Intake Total 1200 260 Output Total 1000 3225 Balance 200 -2965 Weight 84 kg 76 kg Intake: IV 20 Invasive Line 1 20 Oral 1200 240 Output: Urine 1000 3225 Other: Voiding Method Urinal Urinal # Voids 2 - Exam PHYSICAL EXAMINATION: GENERAL: 83-year-old gentleman in mild distress respiratory-strickland this morning. HEENT: Head is atraumatic, normocephalic. Pupils equal, round. Sclera anicteric. Patient is very hard of hearing Conjunctiva are clear. Mucous membranes of the mouth are moist. Neck is supple. There is elevated jugular venous pressure, up to the angle of the jaw . no carotid bruit is heard. HEART EXAMINATION: Heart S1 S2 1 systolic murmur is heard.CHEST EXAMINATION: Lungs reveal improvement in air entry bilaterally l. ABDOMEN: Soft, nontender. Bowel sounds are heard. No organomegaly noted. EXTREMITIES: 1+ peripheral pulses with trace evidence of peripheral edema , patient has a left below the knee amputation NUROLOGIC [patient is awake, alert and oriented X2.] . - Labs CBC & Chem 7: 08/13/18 06:13 08/13/18 06:13 Labs: Abnormal Lab Results - Last 24 Hours (Table) 08/12/18 08/12/18 08/13/18 Range/Units 06:02 21:04 06:13 RBC 3.97 L (4.30-5.90) m/uL Hgb 11.2 L (13.0-17.5) gm/dL Hct 34.2 L (39.0-53.0) % RDW 18.7 H (11.5-15.5) % Lymphocytes # 0.9 L (1.0-4.8) k/uL PT (9.0-12.0) sec INR (<1.2) Carbon Dioxide (22-30) mmol/L BUN (9-20) mg/dL POC Glucose (mg/dL) 74 L (75-99) mg/dL Calcium (8.4-10.2) mg/dL Magnesium (1.6-2.3) mg/dL Iron 33 L (65-175) ug/dL TIBC 168 L (228-460) ug/dL Total Protein (6.3-8.2) g/dL Albumin (3.5-5.0) g/dL 08/13/18 08/13/18 08/13/18 Range/Units 06:13 06:13 11:47 RBC (4.30-5.90) m/uL Hgb (13.0-17.5) gm/dL Hct (39.0-53.0) % RDW (11.5-15.5) % Lymphocytes # (1.0-4.8) k/uL PT 16.1 H (9.0-12.0) sec INR 1.8 H (<1.2) Carbon Dioxide 31 H (22-30) mmol/L BUN 22 H (9-20) mg/dL POC Glucose (mg/dL) 124 H (75-99) mg/dL Calcium 8.2 L (8.4-10.2) mg/dL Magnesium 1.4 L (1.6-2.3) mg/dL Iron (65-175) ug/dL TIBC (228-460) ug/dL Total Protein 6.0 L (6.3-8.2) g/dL Albumin 2.5 L (3.5-5.0) g/dL Microbiology - Last 24 Hours (Table) 08/09/18 11:00 Blood Culture - Preliminary Blood No Growth after 72 hours Assessment and Plan Plan: Assessment and plan #1 systolic congestive heart failure acute on chronic. Echocardiogram with Doppler study performed on this admission showed an ejection fraction of 20-25% . Moderate aortic stenosis, severe mitral regurg, severe tricuspid regurg, severe pulmonary hypertension. We will continue current dose of IV Lasix. #2 uncontrolled hypertension #3 chronic persistent atrial fibrillation with controlled ventricular response #4 acute on chronic kidney injury #5 abnormal troponin #6 hypothyroidism #7 history of left below the knee amputation #8 inguinal hernia, reduced this morning Plan From cardiology's perspective, we'll continue the patient on current dose of IV Lasix, continue to monitor intake and output along with daily weights and daily lytes BUN and creatinine. DNP note has been reviewed, I agree with a documented findings and plan of care. Patient was seen and examined.
--- NOTE | 2018-08-13 12:33 | P.PN ---
Subjective Progress Note Date: 08/13/18 This is a 83-year-old male with a recent prolonged hospitalization earlier in July for sepsis with possible ischemic colitis. Patient completed a course antibiotics as of yesterday with Ceftin and Flagyl. Her patient's caregivers patient has been more short of breath especially with activity. They 've noted significant right lower extremity edema and edema in the back as well. Patient also started complaining of abdominal pain. No nausea or vomiting. Decreased appetite. Having small bowel movements and constipation. Patient was brought into the emergency room for further evaluation and treatment for congestive heart failure exacerbation. BNP was 84,500. Chest x- ray reports to correlate for CHF with interstitial pulmonary edema and mass like area of opacity in the right mid lung. Patient started on IV Lasix. Also note her caregivers that Lasix had been decreased from 40 mg daily down to 20 mg daily. Patient did have some acute kidney injury on his previous hospitalization in Lasix dose was adjusted. Patient also has a known history of chronic atrial fibrillation in which she is anticoagulated with Coumadin, COPD, diabetes mellitus, GERD, hyperlipidemia, hypertension, myocardial infarction, obstructive sleep apnea, congestive heart failure with an EF of 45- 50%. On admission patient also had elevated lactic acid of 3.4 troponin elevated at 0.085 creatinine 1.46. Pulmonary, cardiology and surgical consults have been placed. Patient has had abdominal pain in the center of his abdomen similar to his last admission. Patient is hard of hearing and most of history was obtained from the caregivers. On 08/10/2018 patient is currently resting comfortably in bed. At this time patient denies chest pain or shortness of breath. Patient denies any urinary frequency or burning. Patient denies nausea vomiting diarrhea 08/11/2018 patient resting comfortably. Patient awakes easily. No complaints of pain. He's had decrease in his weight from 87.2 kg to 85.5 kg. Remains on the IV Lasix. Creatinine has decreased from 1.56-1.39 INR 1.8. 08/12/2018 patient remains on IV Lasix. Weight has decreased from 85.5-84 kg. Patient reported left lower rib pain during the evening improved with IV Dilaudid. Patient also has been having cardiac pauses up to 3 seconds. Toprol all had been decreased to 25 mg twice a day. Cardiology has been made aware of continue his cardiac pauses. Patient is also having some dry skin and itching near the IV site. Eucerin lotion has been ordered. Potassium 3.1. Hemoglobin down to 10.5. INR 1.7 creatinine decreased from 1.39-1.33 On 08/13/2018 patient is alert and oriented 3 in no apparent distress he is very hard of hearing but does not seem to have any complaints, INR is 1.8 and he will be given Coumadin 4 mg by mouth today potassium level is 3.5 creatinine is better at 1.12 Objective - Vital Signs Vital signs: Vital Signs Temp 96.8 F L 08/13/18 08:00 Pulse 109 H 08/13/18 08:00 Resp 20 08/13/18 08:00 BP 146/78 08/13/18 08:00 Pulse Ox 90 L 08/13/18 08:00 Intake & Output 08/12/18 08/13/18 08/13/18 18:59 06:59 18:59 Intake Total 1200 260 Output Total 1000 3225 Balance 200 -2965 Weight 84 kg 76 kg Intake: IV 20 Invasive Line 1 20 Oral 1200 240 Output: Urine 1000 3225 Other: Voiding Method Urinal Urinal # Voids 2 - Exam Head normocephalic Neck supple Lungs clear to auscultation bilaterally no wheezing or crackles Heart regular rate and rhythm S1-S2, no rub or gallop positive murmur Abdomen is soft nontender nondistended positive bowel sounds no hepatosplenomegaly Extremities +1 edema right lower extremity. Fluid blister has opened on the right tibia. No evidence of cellulitis. left [id number] amputation. Left arm antecubital area near IV site redness from dry skin and itching. Neuro alert and orientated to 3 hard of hearing - Labs CBC & Chem 7: 08/13/18 06:13 08/13/18 06:13 Labs: Abnormal Lab Results - Last 24 Hours (Table) 08/12/18 08/12/18 08/13/18 Range/Units 06:02 21:04 06:13 RBC 3.97 L (4.30-5.90) m/uL Hgb 11.2 L (13.0-17.5) gm/dL Hct 34.2 L (39.0-53.0) % RDW 18.7 H (11.5-15.5) % Lymphocytes # 0.9 L (1.0-4.8) k/uL PT (9.0-12.0) sec INR (<1.2) Carbon Dioxide (22-30) mmol/L BUN (9-20) mg/dL POC Glucose (mg/dL) 74 L (75-99) mg/dL Calcium (8.4-10.2) mg/dL Magnesium (1.6-2.3) mg/dL Iron 33 L (65-175) ug/dL TIBC 168 L (228-460) ug/dL Total Protein (6.3-8.2) g/dL Albumin (3.5-5.0) g/dL 08/13/18 08/13/18 08/13/18 Range/Units 06:13 06:13 11:47 RBC (4.30-5.90) m/uL Hgb (13.0-17.5) gm/dL Hct (39.0-53.0) % RDW (11.5-15.5) % Lymphocytes # (1.0-4.8) k/uL PT 16.1 H (9.0-12.0) sec INR 1.8 H (<1.2) Carbon Dioxide 31 H (22-30) mmol/L BUN 22 H (9-20) mg/dL POC Glucose (mg/dL) 124 H (75-99) mg/dL Calcium 8.2 L (8.4-10.2) mg/dL Magnesium 1.4 L (1.6-2.3) mg/dL Iron (65-175) ug/dL TIBC (228-460) ug/dL Total Protein 6.0 L (6.3-8.2) g/dL Albumin 2.5 L (3.5-5.0) g/dL Microbiology - Last 24 Hours (Table) 08/09/18 11:00 Blood Culture - Preliminary Blood No Growth after 72 hours Assessment and Plan Plan: 1. Acute systolic CHF exacerbation with Shortness of breath with lower extremity edema. Echo shows an EF of 20-25% moderate aortic stenosis severe mitral regurgitation severe trace tricuspid regurgitation and severe pulmonary hypertension. Continue IV Lasix. Cardiology is following. 2. Abdominal pain with recent admission with sepsis and colitis. patient completed antibiotic course 3. Acute on chronic kidney injury, stage III: Nephrology following. Acute kidney injury likely a component of cardiorenal syndrome. 4. Elevated lactic acid level on admission 5. Chronic atrial fibrillation anticoagulated. INR 1.7. Give Coumadin 5 mg tonight. Continue monitor daily PT/INRs and dose Coumadin accordingly 6. Elevated troponin : Likely due to acute renal failure. Patient evaluated by cardiology 7. Severe protein calorie malnutrition: Add Glucerna shakes 8. Possible diabetes mellitus: add sliding scale coverage and A1c 6.0. Patient not requiring insulin . Blood sugar 71 this morning 9. pseudotumors within the right lung previous is noted on previous CAT scan and chest x-rays. Pulmonary service following 10. Hypothyroidism continue Synthroid 11. Hypomagnesemia give magnesium supplement. Repeat magnesium level 12. Right inguinal hernia that was reduced by surgical service. Surgery is recommending surgery August 17 for hernia repair when patient is cleared by cardiology and pulmonary service 13. Right tibia wound from an open blister. Patient seen by infectious disease. They are recommending local wound care with Aquacel Silver 14. Hypokalemia patient receiving potassium supplement 15. Anemia: Check iron studies. 16. Cardiac pauses: Continue telemetry monitoring. Discussed with cardiology will await their further recommendations. Metoprolol was decreased during this admission from 50 twice a day to 25 twice a day GI prophylaxis Protonix and DVT prophylaxis Coumadin
--- NOTE | 2018-08-13 12:45 | P.PN ---
Subjective Progress Note Date: 08/13/18 CHIEF COMPLAINT: History of right inguinal hernia, now reduced HISTORY OF PRESENT ILLNESS: The patient is an 83-year-old male with multiple medical comorbidities who presented with incidental right inguinal hernia. He has active cardiopulmonary comorbidities and surgery deferred. No further reports a right groin pain. Hernia previously reduced. PHYSICAL EXAM: VITAL SIGNS: Currently stable. GENERAL: Well-developed in no acute distress. HEENT: No sclera icterus. Extraocular movements grossly intact. Moist buccal mucosa. Head is atraumatic, normocephalic. Heart is hearing. No nasal drainage. NECK: Supple without lymphadenopathy. CHEST: Non-labored respirations and equal bilateral excursions. CARDIOVASCULAR: Irregular rate. Regular rhythm. ABDOMEN: Soft nontender nondistended. MUSCULOSKELETAL: No clubbing. Below-knee amputation along the left leg. NEUROLOGIC: No focal or lateralizing signs. Cranial nerves II through XII grossly intact. PSYCH: Alert and oriented to person, place and time. SKIN: Well perfused. Good skin turgor. LABS: Reviewed ASSESSMENT: 1. Right inguinal hernia. PLAN: 1. Patient deemed very high surgical risk from cardiac and pulmonary standpoint. 2. At this time, discussion with nursing confirms patient is not cleared for any surgical procedures. 3. Alternatively, conservative management with a truss hernia belt may be of benefit given the patient's high surgical risk. 4. We'll follow. Objective - Vital Signs Vital signs: Vital Signs Temp 96.8 F L 08/13/18 08:00 Pulse 109 H 08/13/18 08:00 Resp 20 08/13/18 08:00 BP 146/78 08/13/18 08:00 Pulse Ox 90 L 08/13/18 08:00 Intake & Output 08/12/18 08/13/18 08/13/18 18:59 06:59 18:59 Intake Total 1200 260 Output Total 1000 3225 Balance 200 -2965 Weight 84 kg 76 kg Intake: IV 20 Invasive Line 1 20 Oral 1200 240 Output: Urine 1000 3225 Other: Voiding Method Urinal Urinal # Voids 2 - Labs CBC & Chem 7: 08/13/18 06:13 08/13/18 06:13 Labs: Abnormal Lab Results - Last 24 Hours (Table) 08/12/18 08/12/18 08/13/18 Range/Units 06:02 21:04 06:13 RBC 3.97 L (4.30-5.90) m/uL Hgb 11.2 L (13.0-17.5) gm/dL Hct 34.2 L (39.0-53.0) % RDW 18.7 H (11.5-15.5) % Lymphocytes # 0.9 L (1.0-4.8) k/uL PT (9.0-12.0) sec INR (<1.2) Carbon Dioxide (22-30) mmol/L BUN (9-20) mg/dL POC Glucose (mg/dL) 74 L (75-99) mg/dL Calcium (8.4-10.2) mg/dL Magnesium (1.6-2.3) mg/dL Iron 33 L (65-175) ug/dL TIBC 168 L (228-460) ug/dL Total Protein (6.3-8.2) g/dL Albumin (3.5-5.0) g/dL 08/13/18 08/13/18 08/13/18 Range/Units 06:13 06:13 11:47 RBC (4.30-5.90) m/uL Hgb (13.0-17.5) gm/dL Hct (39.0-53.0) % RDW (11.5-15.5) % Lymphocytes # (1.0-4.8) k/uL PT 16.1 H (9.0-12.0) sec INR 1.8 H (<1.2) Carbon Dioxide 31 H (22-30) mmol/L BUN 22 H (9-20) mg/dL POC Glucose (mg/dL) 124 H (75-99) mg/dL Calcium 8.2 L (8.4-10.2) mg/dL Magnesium 1.4 L (1.6-2.3) mg/dL Iron (65-175) ug/dL TIBC (228-460) ug/dL Total Protein 6.0 L (6.3-8.2) g/dL Albumin 2.5 L (3.5-5.0) g/dL Microbiology - Last 24 Hours (Table) 08/09/18 11:00 Blood Culture - Preliminary Blood No Growth after 72 hours
--- NOTE | 2018-08-13 13:33 | PN ---
PROGRESS NOTE Patient is seen for followup for acute kidney injury. Renal function is significantly improved. Creatinine is down to 1.12. Patient has been eating well. He remains on small dose of Cozaar. IV fluids are discontinued. On examination, blood pressure is 146/78, heart rate 109 per minute. He is afebrile. EXAMINATION OF THE HEART: S1, S2. EXAMINATION OF LUNGS: Bilateral breath sounds are heard. ABDOMEN: Soft, non-tender. Examination of lower extremities shows no significant edema. Labs show serum creatinine 1.12, sodium 142, potassium 3.5, hemoglobin 11.2 g/dL, magnesium 1.4. ASSESSMENT: 1. Acute kidney injury, prerenal, currently improved. Patient has good urine output. Creatinine down to 1.12. Patient can continue to be maintained on small dose of Cozaar. 2. Hypertension, controlled. 3. Right inguinal hernia. 4. Abdominal pain with possible colitis, maintained on antibiotics. 5. Chronic atrial fibrillation. 6. Right lower extremity wound, currently dressed. Maintained on antibiotics. PLAN: Continue to encourage increased oral intake. Continue with the Cozaar. MMODL / IJN: [id number] /
--- NOTE | 2018-08-13 16:08 | P.PN ---
Subjective Progress Note Date: 08/13/18 Principal diagnosis: Acute abdominal pain, incarcerated right inguinal hernia, dyspnea, pleural effusions, congestive heart failure This is a 83-year-old white male patient who was brought to the emergency department by a family member for complaint of abdominal pain, shortness of breath related to increased pain. Abdominal pain is in the right lower quadrant. Patient was recently in the hospital with lower abdominal pain, with lactic acidosis. CT of the abdomen showed prominent fluid within mildly thickened mid to lower abdominal small bowel loops, patient was treated for enterocolitis with Rocephin and Flagyl, was sent home on Cipro and Flagyl at discharge. During that admission patient also had abnormal LFTs with dilated gallbladder, ultrasound of the gallbladder showed large gallbladder with mild wall thickening and pericolic cystic fluid consistent with cholecystitis, no gallstones. He was medically treated, improved, and discharged home on 2017. C. diff was negative. 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 Chest x-ray was completed in the emergency department showed interstitial pulmonary edema, masslike areas of opacity at the midlung levels representing pseudotumors the previously seen on CAT scans and chest x-rays. CT of the abdomen and pelvis with no bowel obstruction or pneumoperitoneum. It showed interval development of right inguinal hernia, possible incarceration. She was seen by surgery, and the right inguinal hernia was manually reduced. There were bilateral pleural effusions seen on the CT of abdomen and pelvis. Lab work was reviewed, no leukocytosis, WBC is 5.5, hemoglobin is 11.2, INR is 2.7, and 39, potassium is 4.1, CO2 is 21, BUN is 32 and creatinine is 1.46. Patient was started on IV Lasix 40 mg every 12 hours, he denies chest pain at this time , currently in no acute distress, she is on 4 L per nasal cannula and his pulse ox was 100%, afebrile, and this afternoon axillary temperatures of 95.4, not sure how accurate these temperatures are, his skin is dry and warm. Blood pressures are 132/88, patient is urinating per urinal. Lung sounds are diminished bilateral bases, patient has a congested cough. There is 1+ pitting edema in his right lower extremity, and there are open wounds on his right lynch area with small amount of yellow drainage. This is covered with a dressing. On 08/11/2018 I'm seeing this patient for a follow-up. He was in consultation yesterday. He is an elderly male patient who came with abdominal pain that was attributed to an incarcerated right inguinal hernia that was reduced by general surgery. The patient is not having any significant abdominal pain today. He has however multiple medical problems and comorbidities that were listed earlier. He is resting comfortably in bed. He is afebrile. No nausea vomiting or emesis. No chest pain. He is known to have coronary artery disease , congestion heart failure, CHF with ejection fraction 45-50%, chronic atrial fibrillation, previous history of BKA of the left lower extremity, dementia, hypertension, BPH and previous history of pseudotumors in his lungs the largest one being on the right and he has had previous admissions to the intensive care unit it was taken care of and the patient was discharged successfully. Currently, the patient is resting comfortably in bed. He is on Lasix to optimize volume status and is receiving 40 mg of IV Lasix every 12 hours. He has been on long-term articulation with warfarin with an INR of 1.8. Renal function is stable with a creatinine of 1.39. White cell count is not elevated. On 08/12/2018 patient seen in follow-up on selective care unit. She is sitting up in a chair, patient is extremely hard of hearing, and difficult to communicate with, eyes any acute distress, although he still has some discomfort in the groin area, states in the private area. No abdominal discomfort. Patient did have a bowel movement yesterday. He is tolerating oral intake, no nausea or vomiting, 3 days per nasal cannula, his pulse ox is 93 %, he is afebrile, respirations are nonlabored, lung sounds are positive for bilateral lower base crackles. Patient is being diuresed, remains on Lasix 40 mg every 12 hours. Denies any chest pain. Remains in A. fib. Rate controlled. Obtain repeat chest x-ray tomorrow, but surgery on August for repair of right inguinal herniam, once optimized medically from pulmonary and cardiology standpoint. The patient is seen again today 08/13/2018 in follow-up on the selective care unit. He is currently sitting up in a chair at the bedside. He is awake and alert in no acute distress. He still has some ongoing abdominal discomfort in the right groin area. Surgical services are on the case. No other complaints. No worsening shortness of breath, cough or congestion. He is moving his bowels. He remains afebrile. Hemodynamically stable. Blood cultures reveal no growth. White count 4.8. Hemoglobin 11.2. INR 1.8. Creatinine 1.12. He remains on IV Lasix 40 mg every 12 hours. Currently in a negative balance. Objective - Vital Signs Vital signs: Vital Signs Temp 96.6 F L 08/13/18 12:00 Pulse 75 08/13/18 12:00 Resp 20 08/13/18 12:00 BP 134/82 08/13/18 12:00 Pulse Ox 95 08/13/18 12:00 Intake & Output 08/12/18 08/13/18 08/13/18 18:59 06:59 18:59 Intake Total 1200 260 Output Total 1000 3225 275 Balance 200 -2965 -275 Weight 84 kg 76 kg Intake: IV 20 Invasive Line 1 20 Oral 1200 240 Output: Urine 1000 3225 275 Other: Voiding Method Urinal Urinal # Voids 2 - Exam GENERAL EXAM: Alert, pleasant, 83-year-old white male, very hard of hearing comfortable in no apparent distress. HEAD: Normocephalic/atraumatic. EYES: Normal reaction of pupils, equal size. Conjunctiva pink, sclera white. NOSE: Clear with pink turbinates. THROAT: No erythema or exudates. NECK: No masses, no JVD, no thyroid enlargement, no adenopathy. CHEST: No chest wall deformity. Symmetrical expansion. Diminished breath sounds at bases, and has a congested cough LUNGS: Equal air entry with coarse bibasilar crackles, but no wheeze, rhonchi or dullness. Congestive cough, diminished breath sounds CVS: Irregular rate and rhythm, normal S1 and S2, no gallops, no murmurs, no rubs ABDOMEN: Soft, nontender. No hepatosplenomegaly, normal bowel sounds, no guarding or rigidity. EXTREMITIES: No clubbing, no cyanosis, 2+ pulses and upper and lower extremities. Right lower extremity edema, there is open weeping wound on his right anterior lynch area, with yellow drainage MUSCULOSKELETAL: Muscle strength and tone normal. SPINE: No scoliosis or deformity SKIN: No rashes CENTRAL NERVOUS SYSTEM: Alert and oriented -1. No focal deficits, tone is normal in all 4 extremities. - Labs CBC & Chem 7: 08/13/18 06:13 08/13/18 06:13 Labs: Abnormal Lab Results - Last 24 Hours (Table) 08/12/18 08/12/18 08/13/18 Range/Units 06:02 21:04 06:13 RBC 3.97 L (4.30-5.90) m/uL Hgb 11.2 L (13.0-17.5) gm/dL Hct 34.2 L (39.0-53.0) % RDW 18.7 H (11.5-15.5) % Lymphocytes # 0.9 L (1.0-4.8) k/uL PT (9.0-12.0) sec INR (<1.2) Carbon Dioxide (22-30) mmol/L BUN (9-20) mg/dL POC Glucose (mg/dL) 74 L (75-99) mg/dL Calcium (8.4-10.2) mg/dL Magnesium (1.6-2.3) mg/dL Iron 33 L (65-175) ug/dL TIBC 168 L (228-460) ug/dL Total Protein (6.3-8.2) g/dL Albumin (3.5-5.0) g/dL 08/13/18 08/13/18 08/13/18 Range/Units 06:13 06:13 11:47 RBC (4.30-5.90) m/uL Hgb (13.0-17.5) gm/dL Hct (39.0-53.0) % RDW (11.5-15.5) % Lymphocytes # (1.0-4.8) k/uL PT 16.1 H (9.0-12.0) sec INR 1.8 H (<1.2) Carbon Dioxide 31 H (22-30) mmol/L BUN 22 H (9-20) mg/dL POC Glucose (mg/dL) 124 H (75-99) mg/dL Calcium 8.2 L (8.4-10.2) mg/dL Magnesium 1.4 L (1.6-2.3) mg/dL Iron (65-175) ug/dL TIBC (228-460) ug/dL Total Protein 6.0 L (6.3-8.2) g/dL Albumin 2.5 L (3.5-5.0) g/dL Microbiology - Last 24 Hours (Table) 08/09/18 11:00 Blood Culture - Preliminary Blood No Growth after 96 hours Assessment and Plan Assessment: Assessment: #1. Acute abdominal pain, secondary to incarcerated right inguinal hernia. #2. Lactic acidosis number recovered #3. Dyspnea related to bilateral pleural effusions, acute and chronic systolic CHF exacerbation. #4. Recent hospitalization for abdominal pain, colitis, and sepsis. #5. Acute kidney injury, is renal function was impaired during his last hospitalization, patient was discharged home, creatinine of 1.63, current creatinine has improved, they have 1.46. #6. Chronic atrial fibrillation on Coumadin, with INR of 1.8 #7. Elevated troponins #8. Pseudotumors within the right lung previously noted on previous CAT scans and chest x-rays #9. Hypothyroidism on thyroid mode replacement #10. 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 Right lower leg open wound . #12. History of dementia #13. Osteoarthritis #14. BPH #15. General medical debility, and impaired performance and functional status Plan: The patient was seen and evaluated by Dr. Morris. The patient is more comfortable today compared to yesterday. He sitting up in a chair at the bedside. He has no pulmonary complaints. Surgical services are on the case regarding the right incarcerated inguinal hernia. He is diuresing well. Will continue to follow. I, the cosigning physician, performed a history & physical examination of the patient. Lungs sounds with crackles in the bilateral bases. Maintaining good O2 saturations in the 90s on 2 L/m per nasal cannula. I discussed the assessment and plan of care with my nurse practitioner, Sandra Reed. I attest to the above note as dictated by her.
[2018-08-13 17:46] LABS: Glucose,Whole Blood 79 mg/dL (75-99)
[2018-08-13] MEDS ORDERED: WARFARIN 2 MG TAB PO ONE (18:00)
[2018-08-13 20:43] LABS: Glucose,Whole Blood 106 mg/dL (75-99)
[2018-08-13] MEDS: SERTRALINE 50 MG TAB PO SCH (21:51)
[2018-08-14] MEDS: LEVOTHYROXINE 25 MCG TAB PO SCH (06:28)
[2018-08-14] MEDS: PANTOPRAZOLE 40 MG TABLET PO SCH ×2 (06:28→17:31)
[2018-08-14 06:39] LABS: Glucose,Whole Blood 87 mg/dL (75-99)
[2018-08-14] MEDS: INSULIN ASPART 100 UNIT/ML 1 ML 10 ML VIAL SQ SCH ×4 (06:41→21:08)
[2018-08-14 07:10] LABS: Anisocytosis Slight; Basophils % (A) 0 %; Eosinophils # (A) 0.1 k/uL (0-0.7); Eosinophils % (A) 2 %; HGB 10.5 gm/dL (13.0-17.5); Hypochromasia Moderate; Lymphocytes # (A) 0.8 k/uL (1.0-4.8); Lymphocytes % (A) 20 %; MCH 27.3 pg (25.0-35.0); MCHC 30.8 g/dL (31.0-37.0); MCV 88.8 fL (80.0-100.0); Mean Platelet Volume 8.1; Monocytes # (A) 0.3 k/uL (0-1.0); Monocytes % (A) 6 %; Neutrophils # (A) 2.9 k/uL (1.3-7.7); Neutrophils % (A) 71 %; Platelet Count 178 k/uL (150-450); RBC 3.83 m/uL (4.30-5.90); RDW 18.4 % (11.5-15.5); WBC 4.1 k/uL (3.8-10.6)
[2018-08-14 07:14] LABS: Prothrombin Time 17.9 sec (9.0-12.0)
[2018-08-14 07:36] LABS: Albumin 2.6 g/dL (3.5-5.0); Calcium 8.3 mg/dL (8.4-10.2); Magnesium 1.7 mg/dL (1.6-2.3); Potassium 3.5 mmol/L (3.5-5.1); Total Bilirubin 0.8 mg/dL (0.2-1.3); Total Protein 6.2 g/dL (6.3-8.2)
--- NOTE | 2018-08-14 08:39 | P.PN ---
Subjective Progress Note Date: 08/14/18 This is a 83-year-old male with a recent prolonged hospitalization earlier in July for sepsis with possible ischemic colitis. Patient completed a course antibiotics as of yesterday with Ceftin and Flagyl. Her patient's caregivers patient has been more short of breath especially with activity. They 've noted significant right lower extremity edema and edema in the back as well. Patient also started complaining of abdominal pain. No nausea or vomiting. Decreased appetite. Having small bowel movements and constipation. Patient was brought into the emergency room for further evaluation and treatment for congestive heart failure exacerbation. BNP was 84,500. Chest x- ray reports to correlate for CHF with interstitial pulmonary edema and mass like area of opacity in the right mid lung. Patient started on IV Lasix. Also note her caregivers that Lasix had been decreased from 40 mg daily down to 20 mg daily. Patient did have some acute kidney injury on his previous hospitalization in Lasix dose was adjusted. Patient also has a known history of chronic atrial fibrillation in which she is anticoagulated with Coumadin, COPD, diabetes mellitus, GERD, hyperlipidemia, hypertension, myocardial infarction, obstructive sleep apnea, congestive heart failure with an EF of 45- 50%. On admission patient also had elevated lactic acid of 3.4 troponin elevated at 0.085 creatinine 1.46. Pulmonary, cardiology and surgical consults have been placed. Patient has had abdominal pain in the center of his abdomen similar to his last admission. Patient is hard of hearing and most of history was obtained from the caregivers. On 08/10/2018 patient is currently resting comfortably in bed. At this time patient denies chest pain or shortness of breath. Patient denies any urinary frequency or burning. Patient denies nausea vomiting diarrhea 08/11/2018 patient resting comfortably. Patient awakes easily. No complaints of pain. He's had decrease in his weight from 87.2 kg to 85.5 kg. Remains on the IV Lasix. Creatinine has decreased from 1.56-1.39 INR 1.8. 08/12/2018 patient remains on IV Lasix. Weight has decreased from 85.5-84 kg. Patient reported left lower rib pain during the evening improved with IV Dilaudid. Patient also has been having cardiac pauses up to 3 seconds. Toprol all had been decreased to 25 mg twice a day. Cardiology has been made aware of continue his cardiac pauses. Patient is also having some dry skin and itching near the IV site. Eucerin lotion has been ordered. Potassium 3.1. Hemoglobin down to 10.5. INR 1.7 creatinine decreased from 1.39-1.33 On 08/13/2018 patient is alert and oriented 3 in no apparent distress he is very hard of hearing but does not seem to have any complaints, INR is 1.8 and he will be given Coumadin 4 mg by mouth today potassium level is 3.5 creatinine is better at 1.12 On 08/14/2018 patient was seen and examined he is alert and oriented 3 in no distress he is very hard of hearing he denies any complaints at this time. Vitals were reviewed and were stable without significant abnormality. Labs were reviewed, patient has anemia with hemoglobin of 10.5, otherwise no significant abnormality INR is therapeutic at 2.0 Objective - Vital Signs Vital signs: Vital Signs Temp 98.3 F 08/14/18 04:00 Pulse 81 08/14/18 04:00 Resp 18 08/14/18 04:00 BP 131/71 08/14/18 04:00 Pulse Ox 92 L 08/14/18 04:00 Intake & Output 08/13/18 08/14/18 08/14/18 18:59 06:59 18:59 Intake Total 20 240 Output Total 275 1400 Balance -275 -1380 240 Weight 76 kg 81.1 kg Intake: IV 20 Invasive Line 2 20 Oral 240 Output: Urine 275 1400 Other: Voiding Method Urinal - Exam Head normocephalic Neck supple Lungs clear to auscultation bilaterally no wheezing or crackles Heart regular rate and rhythm S1-S2, no rub or gallop positive murmur Abdomen is soft nontender nondistended positive bowel sounds no hepatosplenomegaly Extremities +1 edema right lower extremity. Fluid blister has opened on the right tibia. No evidence of cellulitis. left [id number] amputation. Left arm antecubital area near IV site redness from dry skin and itching. Neuro alert and orientated to 3 hard of hearing - Labs CBC & Chem 7: 08/14/18 06:18 08/14/18 06:18 Labs: Abnormal Lab Results - Last 24 Hours (Table) 08/13/18 08/13/18 08/14/18 Range/Units 11:47 20:35 06:18 RBC 3.83 L (4.30-5.90) m/uL Hgb 10.5 L (13.0-17.5) gm/dL Hct 34.0 L (39.0-53.0) % MCHC 30.8 L (31.0-37.0) g/dL RDW 18.4 H (11.5-15.5) % Lymphocytes # 0.8 L (1.0-4.8) k/uL PT (9.0-12.0) sec INR (<1.2) Carbon Dioxide (22-30) mmol/L POC Glucose (mg/dL) 124 H 106 H (75-99) mg/dL Calcium (8.4-10.2) mg/dL Total Protein (6.3-8.2) g/dL Albumin (3.5-5.0) g/dL 08/14/18 08/14/18 Range/Units 06:18 06:18 RBC (4.30-5.90) m/uL Hgb (13.0-17.5) gm/dL Hct (39.0-53.0) % MCHC (31.0-37.0) g/dL RDW (11.5-15.5) % Lymphocytes # (1.0-4.8) k/uL PT 17.9 H (9.0-12.0) sec INR 2.0 H (<1.2) Carbon Dioxide 35 H (22-30) mmol/L POC Glucose (mg/dL) (75-99) mg/dL Calcium 8.3 L (8.4-10.2) mg/dL Total Protein 6.2 L (6.3-8.2) g/dL Albumin 2.6 L (3.5-5.0) g/dL Microbiology - Last 24 Hours (Table) 08/09/18 11:00 Blood Culture - Preliminary Blood No Growth after 96 hours Assessment and Plan Plan: 1. Acute systolic CHF exacerbation with Shortness of breath with lower extremity edema. Echo shows an EF of 20-25% moderate aortic stenosis severe mitral regurgitation severe trace tricuspid regurgitation and severe pulmonary hypertension. Continue IV Lasix. Cardiology is following. 2. Abdominal pain with recent admission with sepsis and colitis. patient completed antibiotic course 3. Acute on chronic kidney injury, stage III: Nephrology following. Acute kidney injury likely a component of cardiorenal syndrome. 4. Elevated lactic acid level on admission 5. Chronic atrial fibrillation anticoagulated. INR 2.0. Give Coumadin 4 mg tonight. Continue monitor daily PT/INRs and dose Coumadin accordingly 6. Elevated troponin : Likely due to acute renal failure. Patient evaluated by cardiology 7. Severe protein calorie malnutrition: Add Glucerna shakes 8. Possible diabetes mellitus: add sliding scale coverage and A1c 6.0. Patient not requiring insulin . Blood sugar 71 this morning 9. pseudotumors within the right lung previous is noted on previous CAT scan and chest x-rays. Pulmonary service following 10. Hypothyroidism continue Synthroid 11. Hypomagnesemia give magnesium supplement. Repeat magnesium level 12. Right inguinal hernia that was reduced by surgical service. Surgery is recommending surgery August 17 for hernia repair when patient is cleared by cardiology and pulmonary service 13. Right tibia wound from an open blister. Patient seen by infectious disease. They are recommending local wound care with Aquacel Silver 14. Hypokalemia patient receiving potassium supplement 15. Anemia: Check iron studies. 16. Cardiac pauses: Continue telemetry monitoring. Discussed with cardiology will await their further recommendations. Metoprolol was decreased during this admission from 50 twice a day to 25 twice a day GI prophylaxis Protonix and DVT prophylaxis Coumadin
[2018-08-14] MEDS: amLODIPine 5 MG TAB PO SCH (08:44)
[2018-08-14] MEDS: FUROSEMIDE 10 MG/ML 4 ML VIAL IV SCH ×2 (08:44→20:04)
[2018-08-14] MEDS: ASPIRIN 81 MG PO SCH (08:44)
[2018-08-14] MEDS: SUCRALFATE 1 GM TAB PO SCH ×4 (08:45→20:03)
[2018-08-14] MEDS: LOSARTAN 25 MG TAB PO SCH (08:45)
[2018-08-14] MEDS: SENNOSIDES 8.6 MG TAB PO SCH (08:45)
[2018-08-14] MEDS: hydrALAZINE HCL 50 MG TAB PO SCH ×3 (08:45→20:03)
[2018-08-14] MEDS: NITROGLYCERIN OINT 1 INCH/GM PACKET TOPICAL SCH ×4 (08:45→20:04)
[2018-08-14] MEDS: METOPROLOL TARTRATE 12.5 MG TAB PO SCH ×2 (08:45→20:04)
--- NOTE | 2018-08-14 11:13 | P.PN ---
Subjective Progress Note Date: 08/14/18 Principal diagnosis: Code abdominal pain, incarcerated right inguinal hernia, dyspnea, pleural effusions, acute CHF exacerbation This is a 83-year-old white male patient who was brought to the emergency department by a family member for complaint of abdominal pain, shortness of breath related to increased pain. Abdominal pain is in the right lower quadrant. Patient was recently in the hospital with lower abdominal pain, with lactic acidosis. CT of the abdomen showed prominent fluid within mildly thickened mid to lower abdominal small bowel loops, patient was treated for enterocolitis with Rocephin and Flagyl, was sent home on Cipro and Flagyl at discharge. During that admission patient also had abnormal LFTs with dilated gallbladder, ultrasound of the gallbladder showed large gallbladder with mild wall thickening and pericolic cystic fluid consistent with cholecystitis, no gallstones. He was medically treated, improved, and discharged home on 2017. C. diff was negative. 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 Chest x-ray was completed in the emergency department showed interstitial pulmonary edema, masslike areas of opacity at the midlung levels representing pseudotumors the previously seen on CAT scans and chest x-rays. CT of the abdomen and pelvis with no bowel obstruction or pneumoperitoneum. It showed interval development of right inguinal hernia, possible incarceration. She was seen by surgery, and the right inguinal hernia was manually reduced. There were bilateral pleural effusions seen on the CT of abdomen and pelvis. Lab work was reviewed, no leukocytosis, WBC is 5.5, hemoglobin is 11.2, INR is 2.7, and 39, potassium is 4.1, CO2 is 21, BUN is 32 and creatinine is 1.46. Patient was started on IV Lasix 40 mg every 12 hours, he denies chest pain at this time , currently in no acute distress, she is on 4 L per nasal cannula and his pulse ox was 100%, afebrile, and this afternoon axillary temperatures of 95.4, not sure how accurate these temperatures are, his skin is dry and warm. Blood pressures are 132/88, patient is urinating per urinal. Lung sounds are diminished bilateral bases, patient has a congested cough. There is 1+ pitting edema in his right lower extremity, and there are open wounds on his right lynch area with small amount of yellow drainage. This is covered with a dressing. On 08/11/2018 I'm seeing this patient for a follow-up. He was in consultation yesterday. He is an elderly male patient who came with abdominal pain that was attributed to an incarcerated right inguinal hernia that was reduced by general surgery. The patient is not having any significant abdominal pain today. He has however multiple medical problems and comorbidities that were listed earlier. He is resting comfortably in bed. He is afebrile. No nausea vomiting or emesis. No chest pain. He is known to have coronary artery disease , congestion heart failure, CHF with ejection fraction 45-50%, chronic atrial fibrillation, previous history of BKA of the left lower extremity, dementia, hypertension, BPH and previous history of pseudotumors in his lungs the largest one being on the right and he has had previous admissions to the intensive care unit it was taken care of and the patient was discharged successfully. Currently, the patient is resting comfortably in bed. He is on Lasix to optimize volume status and is receiving 40 mg of IV Lasix every 12 hours. He has been on long-term articulation with warfarin with an INR of 1.8. Renal function is stable with a creatinine of 1.39. White cell count is not elevated. On 08/12/2018 patient seen in follow-up on selective care unit. She is sitting up in a chair, patient is extremely hard of hearing, and difficult to communicate with, eyes any acute distress, although he still has some discomfort in the groin area, states in the private area. No abdominal discomfort. Patient did have a bowel movement yesterday. He is tolerating oral intake, no nausea or vomiting, 3 days per nasal cannula, his pulse ox is 93 %, he is afebrile, respirations are nonlabored, lung sounds are positive for bilateral lower base crackles. Patient is being diuresed, remains on Lasix 40 mg every 12 hours. Denies any chest pain. Remains in A. fib. Rate controlled. Obtain repeat chest x-ray tomorrow, but surgery on August for repair of right inguinal herniam, once optimized medically from pulmonary and cardiology standpoint. On 08/14/2018 patient seen in follow-up on selective care unit. He is awake and alert, denies any acute distress, denies any difficulty breathing, denies any inguinal discomfort at the moment. Remains on 2 L per nasal cannula his pulse ox is 99%, he is afebrile, hemodynamically stable. Cultures are negative , patient is maintaining negative fluid balance, he continues to diurese. Lung sounds are clear, diminished at the bases. His labs have been reviewed, WBC is 4.1, hemoglobin is 10.5, INR is 2.0, electrolytes and renal profile are essentially unremarkable, with the exception of CO2 which is at 35. Right lower extremity edema is improving, open areas on the right anterior lynch area covered with a dressing. Objective - Vital Signs Vital signs: Vital Signs Temp 98.1 F 08/14/18 08:00 Pulse 87 08/14/18 08:00 Resp 20 08/14/18 08:00 BP 132/58 08/14/18 08:00 Pulse Ox 99 08/14/18 08:00 Intake & Output 08/13/18 08/14/18 08/14/18 18:59 06:59 18:59 Intake Total 20 250 Output Total 275 1400 Balance -275 -1380 250 Weight 76 kg 81.1 kg Intake: IV 20 10 Invasive Line 2 20 10 Oral 240 Output: Urine 275 1400 Other: Voiding Method Urinal - Exam GENERAL EXAM: Alert, pleasant, 83-year-old white male, very hard of hearing comfortable in no apparent distress. HEAD: Normocephalic/atraumatic. EYES: Normal reaction of pupils, equal size. Conjunctiva pink, sclera white. NOSE: Clear with pink turbinates. THROAT: No erythema or exudates. NECK: No masses, no JVD, no thyroid enlargement, no adenopathy. CHEST: No chest wall deformity. Symmetrical expansion. Diminished breath sounds at bases, and has a congested cough LUNGS: Equal air entry with diminished breath sounds at the bases, but no wheeze , rhonchi or dullness. Congestive cough, diminished breath sounds CVS: Irregular rate and rhythm, normal S1 and S2, no gallops, no murmurs, no rubs ABDOMEN: Soft, nontender. No hepatosplenomegaly, normal bowel sounds, no guarding or rigidity. EXTREMITIES: No clubbing, no cyanosis, 2+ pulses and upper and lower extremities. Right lower extremity edema, there is open weeping wound on his right anterior lynch area, with yellow drainage MUSCULOSKELETAL: Muscle strength and tone normal. SPINE: No scoliosis or deformity SKIN: No rashes CENTRAL NERVOUS SYSTEM: Alert and oriented -1. No focal deficits, tone is normal in all 4 extremities. - Labs CBC & Chem 7: 08/14/18 06:18 08/14/18 06:18 Labs: Abnormal Lab Results - Last 24 Hours (Table) 08/13/18 08/13/18 08/14/18 Range/Units 11:47 20:35 06:18 RBC 3.83 L (4.30-5.90) m/uL Hgb 10.5 L (13.0-17.5) gm/dL Hct 34.0 L (39.0-53.0) % MCHC 30.8 L (31.0-37.0) g/dL RDW 18.4 H (11.5-15.5) % Lymphocytes # 0.8 L (1.0-4.8) k/uL PT (9.0-12.0) sec INR (<1.2) Carbon Dioxide (22-30) mmol/L POC Glucose (mg/dL) 124 H 106 H (75-99) mg/dL Calcium (8.4-10.2) mg/dL Total Protein (6.3-8.2) g/dL Albumin (3.5-5.0) g/dL 08/14/18 08/14/18 Range/Units 06:18 06:18 RBC (4.30-5.90) m/uL Hgb (13.0-17.5) gm/dL Hct (39.0-53.0) % MCHC (31.0-37.0) g/dL RDW (11.5-15.5) % Lymphocytes # (1.0-4.8) k/uL PT 17.9 H (9.0-12.0) sec INR 2.0 H (<1.2) Carbon Dioxide 35 H (22-30) mmol/L POC Glucose (mg/dL) (75-99) mg/dL Calcium 8.3 L (8.4-10.2) mg/dL Total Protein 6.2 L (6.3-8.2) g/dL Albumin 2.6 L (3.5-5.0) g/dL Microbiology - Last 24 Hours (Table) 08/09/18 11:00 Blood Culture - Preliminary Blood No Growth after 96 hours Assessment and Plan Plan: Assessment: #1. Acute abdominal pain, incarcerated right inguinal hernia. #2. Lactic acidosis #3. Dyspnea related to bilateral pleural effusions, acute CHF exacerbation with her previously impaired systolic dysfunction . #4. Recent hospitalization for abdominal pain, colitis, and sepsis. #5. Acute kidney injury, is renal function was impaired during his last hospitalization, patient was discharged home, creatinine of 1.63, current creatinine has improved, they have 1.46. #6. Chronic atrial fibrillation on Coumadin, with INR of 2.7, #7. Elevated troponins #8. Pseudotumors within the right lung previously noted on previous CAT scans and chest x-rays #9. Hypothyroidism on thyroid mode replacement #10. 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 Right lower leg open wound . #12. History of dementia #13. Osteoarthritis #14. BPH #15. General medical debility, and impaired performance and functional status Plan: We'll obtain a repeat chest x-ray in am, may decrease the dose of diuretics based on the findings and the chest x-ray. No worsening dyspnea. Hemodynamically stable. Maintaining negative fluid balance. Afebrile. He is awaiting surgery sometime next week. Continue to follow. I performed a history & physical examination of the patient and discussed their management with my nurse practitioner, Henny Walsh. I reviewed the nurse practitioner's note and agree with the documented findings and plan of care. Lung sounds are diminished, with bibasilar crackles. The findings and the impression was discussed with the patient. I attest to the documentation by the nurse practitioner. Time with Patient: Less than 30
[2018-08-14 11:43] LABS: Glucose,Whole Blood 128 mg/dL (75-99)
[2018-08-14] MEDS: SODIUM CHLORIDE 0.9% 1,000 ML IV SCH (11:44)
--- NOTE | 2018-08-14 13:14 | P.PN ---
Subjective Progress Note Date: 08/14/18 CHIEF COMPLAINT: History of right inguinal hernia, now reduced HISTORY OF PRESENT ILLNESS: The patient is an 83-year-old male with multiple medical comorbidities who presented with incidental right inguinal hernia. Since reduction off of his right inguinal hernia, he is tolerating diet. He denies any abdominal pain. He is overall very high surgical risk secondary to congestive heart failure including COPD. PHYSICAL EXAM: VITAL SIGNS: Currently stable. GENERAL: Well-developed in no acute distress. HEENT: No sclera icterus. Extraocular movements grossly intact. Moist buccal mucosa. Head is atraumatic, normocephalic. Heart is hearing. No nasal drainage. NECK: Supple without lymphadenopathy. CHEST: Non-labored respirations and equal bilateral excursions. CARDIOVASCULAR: Irregular rate. Regular rhythm. ABDOMEN: Soft nontender nondistended. MUSCULOSKELETAL: No clubbing. Below-knee amputation along the left leg. NEUROLOGIC: No focal or lateralizing signs. Cranial nerves II through XII grossly intact. PSYCH: Alert and oriented to person, place and time. SKIN: Well perfused. Good skin turgor. LABS: Reviewed ASSESSMENT: 1. Right inguinal hernia. PLAN: 1. At this time, surgical intervention may be on hold as the patient is asymptomatic and his hernia has been reduced. 2. Overall he is deemed a very high surgical risk and had to be cleared by pulmonary including cardiac services Objective - Vital Signs Vital signs: Vital Signs Temp 98.1 F 08/14/18 08:00 Pulse 87 08/14/18 08:00 Resp 20 08/14/18 08:00 BP 132/58 08/14/18 08:00 Pulse Ox 99 08/14/18 08:00 Intake & Output 08/13/18 08/14/18 08/14/18 18:59 06:59 18:59 Intake Total 20 250 Output Total 275 1400 Balance -275 -1380 250 Weight 76 kg 81.1 kg Intake: IV 20 10 Invasive Line 2 20 10 Oral 240 Output: Urine 275 1400 Other: Voiding Method Urinal - Labs CBC & Chem 7: 08/14/18 06:18 08/14/18 06:18 Labs: Abnormal Lab Results - Last 24 Hours (Table) 08/13/18 08/14/18 08/14/18 Range/Units 20:35 06:18 06:18 RBC 3.83 L (4.30-5.90) m/uL Hgb 10.5 L (13.0-17.5) gm/dL Hct 34.0 L (39.0-53.0) % MCHC 30.8 L (31.0-37.0) g/dL RDW 18.4 H (11.5-15.5) % Lymphocytes # 0.8 L (1.0-4.8) k/uL PT 17.9 H (9.0-12.0) sec INR 2.0 H (<1.2) Carbon Dioxide (22-30) mmol/L POC Glucose (mg/dL) 106 H (75-99) mg/dL Calcium (8.4-10.2) mg/dL Total Protein (6.3-8.2) g/dL Albumin (3.5-5.0) g/dL 08/14/18 08/14/18 Range/Units 06:18 11:39 RBC (4.30-5.90) m/uL Hgb (13.0-17.5) gm/dL Hct (39.0-53.0) % MCHC (31.0-37.0) g/dL RDW (11.5-15.5) % Lymphocytes # (1.0-4.8) k/uL PT (9.0-12.0) sec INR (<1.2) Carbon Dioxide 35 H (22-30) mmol/L POC Glucose (mg/dL) 128 H (75-99) mg/dL Calcium 8.3 L (8.4-10.2) mg/dL Total Protein 6.2 L (6.3-8.2) g/dL Albumin 2.6 L (3.5-5.0) g/dL Microbiology - Last 24 Hours (Table) 08/09/18 11:00 Blood Culture - Preliminary Blood No Growth after 96 hours Assessment and Plan (1) Right inguinal hernia Current Visit: Yes Status: Acute Code(s): K40.90 - UNIL INGUINAL HERNIA, W/ O OBST OR GANGR, NOT SPCF RECUR SNOMED Code(s): 338599990 (2) Pulmonary edema Current Visit: Yes Status: Acute Code(s): J81.1 - CHRONIC PULMONARY EDEMA SNOMED Code(s): 05416577 (3) Atrial fibrillation with RVR Current Visit: No Status: Acute Code(s): I48.91 - UNSPECIFIED ATRIAL FIBRILLATION SNOMED Code(s): 313289866697053 (4) CHF (congestive heart failure) Current Visit: No Status: Acute Code(s): I50.9 - HEART FAILURE, UNSPECIFIED SNOMED Code(s): 83126455 (5) Lactic acidosis Current Visit: No Status: Acute Code(s): E87.2 - ACIDOSIS SNOMED Code(s): 09900766 (6) S/P BKA (below knee amputation) unilateral Current Visit: No Status: Acute Code(s): Z89.519 - ACQUIRED ABSENCE OF UNSPECIFIED LEG BELOW KNEE SNOMED Code(s): 770460949
--- NOTE | 2018-08-14 15:02 | P.PN ---
Subjective Progress Note Date: 08/14/18 This is an 83-year-old gentleman who was brought to the hospital because his caregivers noted him to be significantly more short of breath. He also noticed a significant increase in his peripheral edema, he's been having a decreased appetite at home. Apparently was complaining of some abdominal discomfort as well. Patient was brought to the emergency room for further evaluation and treatment, currently receiving treatment for congestive heart failure exacerbation. BNP level on arrival 84,500. Chest x-ray showed CHF with interstitial pulmonary edema and a masslike area of opaque severe in the mid right lung. Continues to be on IV Lasix. Patient also has history of chronic atrial fibrillation, anticoagulated with Coumadin, COPD, sleep apnea, hypothyroidism, diabetes, left BKA, GERD, hyperlipidemia, hypertension, sleep apnea. Lactic acid was noted to be abnormal on admission at 3.4. Patient was seen and examined this morning, lying in bed, he is quite hard of hearing but answers questions appropriately. He did complain this morning of feeling short of breath, when lying flat, this seemed to improve when we raise the head of his bed. Blood pressure this morning 132/80 with a heart rate in the 60s, 100% on 4 L of oxygen. White blood cell count 6.9, hemoglobin 11.2, platelet count 225. INR 2.2, sodium 142, potassium 4.3, BUN 33, creatinine 1.5. 08/11/2018 Patient was seen and examined this morning, still complaining of some shortness of breath, but does state that it's better than yesterday. Weight is down 2 kg today. White blood cell count 6.4, hemoglobin 11.5, platelet count 209. INR today 1.8. Sodium 139, potassium 3.5, BUN 33, creatinine 1.3. Chin used to be on IV Lasix. 08/13/2018. Patient was seen and examined this morning, he is up sitting in the chair today , breathing overall is stable. Looks significantly better overall. Weight is down a considerable amount today. Blood pressure this morning 130/70 with a heart rate of 90, 95% on 3 L of oxygen. White blood cell count 4.8, hemoglobin 11.2, platelet count 172. INR 1.8, sodium 142, potassium 3.5 which we have replaced, BUN 22, creatinine 1.1. Repeat chest x-ray was performed which does show some heart failure. There is also a masslike consolidation within the right midlung which could represent a superimposed pneumonia. Follow-up resolution is recommended to ensure no underlying pulmonary mass. We will continue IV Lasix. 08/14/2018 Patient was seen and examined. His breathing has improved. Creatinine has remained stable. INR therapeutic at 2.0. He seen sitting up in bed in no acute distress. Weight is up from admission. He denies any chest discomfort, shortness breath or palpitations. Objective - Vital Signs Vital signs: Vital Signs Temp 97.8 F 08/14/18 12:00 Pulse 82 08/14/18 12:00 Resp 20 08/14/18 12:00 BP 117/50 08/14/18 12:00 Pulse Ox 98 08/14/18 12:00 Intake & Output 08/13/18 08/14/18 08/14/18 18:59 06:59 18:59 Intake Total 20 617 Output Total 275 1400 300 Balance -275 -1380 317 Weight 76 kg 81.1 kg Intake: IV 20 20 Invasive Line 2 20 20 Oral 597 Output: Urine 275 1400 300 Other: Voiding Method Urinal # Voids 2 - Exam GENERAL: 83-year-old gentleman in mild distress respiratory-strickland this morning. HEENT: Head is atraumatic, normocephalic. Pupils equal, round. Sclera anicteric. Patient is very hard of hearing Conjunctiva are clear. Mucous membranes of the mouth are moist. Neck is supple. There is elevated jugular venous pressure, up to the angle of the jaw . no carotid bruit is heard. HEART EXAMINATION: Heart S1 S2 1, 3/6 systolic murmur is heard. CHEST EXAMINATION: Lungs reveal improvement in air entry bilaterally. ABDOMEN: Soft, nontender. Bowel sounds are heard. No organomegaly noted. EXTREMITIES: 1+ peripheral pulses with trace evidence of peripheral edema , patient has a left below the knee amputation NEUROLOGIC patient is awake, alert and oriented X2. - Labs CBC & Chem 7: 08/14/18 06:18 08/14/18 06:18 Labs: Abnormal Lab Results - Last 24 Hours (Table) 08/13/18 08/14/18 08/14/18 Range/Units 20:35 06:18 06:18 RBC 3.83 L (4.30-5.90) m/uL Hgb 10.5 L (13.0-17.5) gm/dL Hct 34.0 L (39.0-53.0) % MCHC 30.8 L (31.0-37.0) g/dL RDW 18.4 H (11.5-15.5) % Lymphocytes # 0.8 L (1.0-4.8) k/uL PT 17.9 H (9.0-12.0) sec INR 2.0 H (<1.2) Carbon Dioxide (22-30) mmol/L POC Glucose (mg/dL) 106 H (75-99) mg/dL Calcium (8.4-10.2) mg/dL Total Protein (6.3-8.2) g/dL Albumin (3.5-5.0) g/dL 08/14/18 08/14/18 Range/Units 06:18 11:39 RBC (4.30-5.90) m/uL Hgb (13.0-17.5) gm/dL Hct (39.0-53.0) % MCHC (31.0-37.0) g/dL RDW (11.5-15.5) % Lymphocytes # (1.0-4.8) k/uL PT (9.0-12.0) sec INR (<1.2) Carbon Dioxide 35 H (22-30) mmol/L POC Glucose (mg/dL) 128 H (75-99) mg/dL Calcium 8.3 L (8.4-10.2) mg/dL Total Protein 6.2 L (6.3-8.2) g/dL Albumin 2.6 L (3.5-5.0) g/dL Microbiology - Last 24 Hours (Table) 08/09/18 11:00 Blood Culture - Preliminary Blood No Growth after 120 hours Assessment and Plan Assessment: #1 systolic congestive heart failure acute on chronic. Echocardiogram with Doppler study performed on this admission showed an ejection fraction of 20-25% . Moderate aortic stenosis, severe mitral regurg, severe tricuspid regurg, severe pulmonary hypertension. We will continue current dose of IV Lasix. #2 uncontrolled hypertension #3 chronic persistent atrial fibrillation with controlled ventricular response #4 acute on chronic kidney injury #5 abnormal troponin #6 hypothyroidism #7 history of left below the knee amputation #8 inguinal hernia, reduced this morning Plan: Continue with current medication regimen. No further changes have been made. Continue with strict I&O and daily weights. We will follow him closely.
--- NOTE | 2018-08-14 15:28 | PN ---
PROGRESS NOTE Patient is seen for followup for acute kidney injury. His renal function has improved significantly with creatinine staying at about 1.0 mg/dL. The patient was admitted with abdominal pain. He is found to have a right inguinal hernia. No plans for surgery at this time. PHYSICAL EXAMINATION: Blood pressure this morning was 132/58, heart rate 87 per minute. He is afebrile. Examination of the heart S1, S2. Examination of the lungs bilateral breath sounds are heard. Abdomen is soft, nontender. Examination of the lower extremities shows bilateral extremities to be wrapped. LABS: Show sodium 140, potassium 3.5, chloride 101, BUN 20, serum creatinine 1.07, hemoglobin 10.5 g/dL. ASSESSMENT: 1. Acute kidney injury associated with congestive heart failure, volume overload. The patient is currently maintained on Lasix q.12 hours. His renal function is stable and significantly improved. He has good urine output. The patient has been voiding on his own. We can continue with the Lasix. He is also maintained on small dose of Cozaar which we can continue for now. 2. Bilateral lower extremity cellulitis and wounds, maintained on antibiotics. 3. Status post left below knee amputation. 4. Cardiomyopathy, ejection fraction 45-50 percent. PLAN: Continue Cozaar. Continue current dose of Lasix. We will switch to p.o. Lasix at the time of discharge and monitor renal function as outpatient. MMODL / IJN: [id number] /
[2018-08-14 16:57] LABS: Glucose,Whole Blood 133 mg/dL (75-99)
[2018-08-14] MEDS ORDERED: WARFARIN 2 MG TAB PO ONE (18:00)
[2018-08-14] MEDS: SERTRALINE 50 MG TAB PO SCH (20:04)
[2018-08-14 21:05] LABS: Glucose,Whole Blood 108 mg/dL (75-99)
--- NOTE | 2018-08-15 01:16 | PN ---
PROGRESS NOTE DATE OF SERVICE: 08/14/2018. REASON FOR FOLLOWUP: Right leg wound. INTERVAL HISTORY: The patient is currently afebrile. He is breathing comfortably. Denies any significant chest pain, shortness of breath. Abdominal pain has improved. Denies pain in the right leg area. EXAMINATION: Blood pressure 138/79, pulse of 72, temperature 97.5. He is 93% on room air. GENERAL DESCRIPTION: An elderly male up in the chair in no distress. RESPIRATORY SYSTEM: Unlabored breathing. Clear to auscultation anteriorly. HEART: S1, S2. Regular rate and rhythm. EXTREMITIES: Right leg wound is currently dressed. Some drainage on the dressing. LABS: Hemoglobin is 10.5, white count 4.1 BUN of 20, creatinine 1.07. DIAGNOSTIC IMPRESSION AND PLAN: Patient with right leg wound with no evidence of any secondary cellulitis. Continue wound care with an Santiago wrap to be changed every 48 hours. No need for any systemic antibiotic therapy. Continue supportive care. MMODL / IJN: [id number] /
[2018-08-15] MEDS: INSULIN ASPART 100 UNIT/ML 1 ML 10 ML VIAL SQ SCH ×4 (06:33→21:54)
[2018-08-15] MEDS: LEVOTHYROXINE 25 MCG TAB PO SCH (06:37)
[2018-08-15] MEDS: PANTOPRAZOLE 40 MG TABLET PO SCH ×2 (06:37→17:39)
[2018-08-15 06:39] LABS: Glucose,Whole Blood 75 mg/dL (75-99)
[2018-08-15 07:59] LABS: Anisocytosis Slight; Basophils % (A) 0 %; Eosinophils # (A) 0.1 k/uL (0-0.7); Eosinophils % (A) 2 %; HCT 35.7 % (39.0-53.0); Hypochromasia Moderate; Lymphocytes # (A) 1.1 k/uL (1.0-4.8); Lymphocytes % (A) 20 %; MCH 27.3 pg (25.0-35.0); MCHC 30.9 g/dL (31.0-37.0); MCV 88.2 fL (80.0-100.0); Mean Platelet Volume 8.9; Monocytes # (A) 0.3 k/uL (0-1.0); Monocytes % (A) 5 %; Neutrophils # (A) 3.7 k/uL (1.3-7.7); Neutrophils % (A) 72 %; Platelet Count 180 k/uL (150-450); RBC 4.05 m/uL (4.30-5.90); RDW 18.4 % (11.5-15.5); WBC 5.2 k/uL (3.8-10.6)
[2018-08-15 08:07] LABS: Albumin 2.7 g/dL (3.5-5.0); Calcium 8.4 mg/dL (8.4-10.2); Potassium 3.5 mmol/L (3.5-5.1); Total Bilirubin 0.8 mg/dL (0.2-1.3); Total Protein 6.4 g/dL (6.3-8.2)
[2018-08-15 08:25] LABS: INR 2.1 (<1.2); Prothrombin Time 18.6 sec (9.0-12.0)
--- NOTE | 2018-08-15 08:53 | XR ---
EXAMINATION TYPE: XR chest 2V DATE OF EXAM: 08/15/2018 COMPARISON: 08/12/2018 INDICATION: Follow-up previous abnormal TECHNIQUE: Frontal and lateral views of the chest are obtained. FINDINGS: The heart size is normal. The pulmonary vasculature is normal. Perihilar infiltrates or masses are evident. This is developing on the left and stable on the right.. IMPRESSION: 1. Bilateral lung infiltrates appear to be worsening on the left. Continued follow-up to complete res olution is recommended. Underlying masses are not excluded.
[2018-08-15] MEDS: METOPROLOL TARTRATE 12.5 MG TAB PO SCH ×2 (09:10→21:53)
[2018-08-15] MEDS: amLODIPine 5 MG TAB PO SCH (09:10)
[2018-08-15] MEDS: LOSARTAN 25 MG TAB PO SCH (09:10)
[2018-08-15] MEDS: ASPIRIN 81 MG PO SCH (09:10)
[2018-08-15] MEDS: hydrALAZINE HCL 50 MG TAB PO SCH ×3 (09:10→21:53)
[2018-08-15] MEDS: FUROSEMIDE 10 MG/ML 4 ML VIAL IV SCH ×2 (09:10→21:54)
[2018-08-15] MEDS: SUCRALFATE 1 GM TAB PO SCH ×4 (09:11→21:53)
[2018-08-15] MEDS: NITROGLYCERIN OINT 1 INCH/GM PACKET TOPICAL SCH ×4 (09:11→21:54)
[2018-08-15] MEDS: SENNOSIDES 8.6 MG TAB PO SCH (09:11)
[2018-08-15] MEDS ORDERED: POTASSIUM CHLORIDE ER 20 MEQ TAB.ER PO STA (09:25)
--- NOTE | 2018-08-15 09:54 | P.PN ---
Subjective Progress Note Date: 08/15/18 83-year-old male seen sitting up in a chair this morning very hard of hearing when questioning patient denies abdominal pain since his admission reduction of a right inguinal hernia was done at the bedside by the surgeon. Patient's initial presentation was with incidental right inguinal hernia. Patient is considered an overall high risk surgically secondary to comorbidity heart failure including COPD cardiology and pulmonary following currently is denying any nausea or vomiting Objective - Vital Signs Vital signs: Vital Signs Temp 97.1 F L 08/15/18 08:00 Pulse 62 08/15/18 08:00 Resp 20 08/15/18 08:00 BP 132/71 08/15/18 08:00 Pulse Ox 97 08/15/18 08:00 Intake & Output 08/14/18 08/15/18 08/15/18 18:59 06:59 18:59 Intake Total 867 60 120 Output Total 600 1800 Balance 267 -1740 120 Weight 79.1 kg Intake: IV 30 60 0.9 40 Invasive Line 2 30 20 Oral 837 120 Output: Urine 600 1800 Other: Voiding Method Urinal # Voids 2 2 - Exam Physical exam 83-year-old male resting comfortably in a chair appears in no acute distress very hard of hearing Lungs posterior decreased at the bases otherwise adequate air movement no wheezing rales or rhonchi noted 97% on 3 L 93 on room air Heart S1-S2 audible irregular denying chest pain Abdomen soft nondistended nontender denying abdominal pain no nausea no vomiting urinating no difficulty Extremities right lower extremity edema open wound to the right anterior lynch area. Left BKA - Labs CBC & Chem 7: 08/15/18 07:37 08/15/18 07:37 Labs: Abnormal Lab Results - Last 24 Hours (Table) 08/14/18 08/14/18 08/14/18 Range/Units 11:39 16:33 21:02 RBC (4.30-5.90) m/uL Hgb (13.0-17.5) gm/dL Hct (39.0-53.0) % MCHC (31.0-37.0) g/dL RDW (11.5-15.5) % PT (9.0-12.0) sec INR (<1.2) Chloride (98-107) mmol/L Carbon Dioxide (22-30) mmol/L BUN (9-20) mg/dL Glucose (74-99) mg/dL POC Glucose (mg/dL) 128 H 133 H 108 H (75-99) mg/dL ALT (21-72) U/L Albumin (3.5-5.0) g/dL 08/15/18 08/15/18 08/15/18 Range/Units 07:37 07:37 07:37 RBC 4.05 L (4.30-5.90) m/uL Hgb 11.0 L (13.0-17.5) gm/dL Hct 35.7 L (39.0-53.0) % MCHC 30.9 L (31.0-37.0) g/dL RDW 18.4 H (11.5-15.5) % PT 18.6 H (9.0-12.0) sec INR 2.1 H (<1.2) Chloride 97 L (98-107) mmol/L Carbon Dioxide 36 H (22-30) mmol/L BUN 21 H (9-20) mg/dL Glucose 110 H (74-99) mg/dL POC Glucose (mg/dL) (75-99) mg/dL ALT 19 L (21-72) U/L Albumin 2.7 L (3.5-5.0) g/dL Microbiology - Last 24 Hours (Table) 08/09/18 11:00 Blood Culture - Preliminary Blood No Growth after 120 hours Assessment and Plan Assessment: Impression Present on admission abdominal pain suspect due to right inguinal hernia CT abdomen and pelvis indicate no obstruction air-fluid loop of colon noted Per advance directives no CODE STATUS Dementia with no behavior disturbance Chronic atrial fibrillation on long-term anticoagulation Coumadin History of a left below the knee amputation Ultrasound prior admission showed dilated gallbladder possible cholecystitis Severe protein calorie malnutrition Masslike area in the right midlung Abdominal pain with a recent admission sepsis colitis. Thanks Elevated troponin suspect due to elevated creatinine Present on admission shortness of breath suspect due to an acute exacerbation of chronic systolic heart failure EF on a current echo severely impaired between 20 and 25% Debilitated chronic limited ability to participate in ADLs Ultrasound of gallbladder done 07/22/2018 showed thickening gallbladder wall Inguinal hernia manually reduced this admission Plan Surgical intervention continues to be on hold patient is asymptomatic and inguinal hernia has been reduced Surgery will be on hold until patient is medically stable from a pulmonary and cardiology perspective Continue recommendations by cardiology and pulmonary DVT and GI prophylaxis Further surgical recommendations pending Anticipate doing surgery on Wednesday the 17 of August if cardiology and pulmonary cleared after surgeon evaluates patient today a decision will be made PT OT The above impression and plan of care have been discussed and directed by signing physician. Anita Fortune nurse practitioner acting as scribe for signing physician.
[2018-08-15] MEDS: MAGNESIUM SULFATE-D5W PMX 1 GM in DEXTROSE/WATER 1 100ML.BAG IVPB SCH ×2 (10:10→11:24)
[2018-08-15] MEDS: SODIUM CHLORIDE 0.9% 1,000 ML IV SCH (10:23)
[2018-08-15 11:14] LABS: Glucose,Whole Blood 183 mg/dL (75-99)
--- NOTE | 2018-08-15 11:44 | P.PN ---
Subjective Progress Note Date: 08/15/18 Principal diagnosis: Code abdominal pain, incarcerated right inguinal hernia, dyspnea, pleural effusions, acute CHF exacerbation This is a 83-year-old white male patient who was brought to the emergency department by a family member for complaint of abdominal pain, shortness of breath related to increased pain. Abdominal pain is in the right lower quadrant. Patient was recently in the hospital with lower abdominal pain, with lactic acidosis. CT of the abdomen showed prominent fluid within mildly thickened mid to lower abdominal small bowel loops, patient was treated for enterocolitis with Rocephin and Flagyl, was sent home on Cipro and Flagyl at discharge. During that admission patient also had abnormal LFTs with dilated gallbladder, ultrasound of the gallbladder showed large gallbladder with mild wall thickening and pericolic cystic fluid consistent with cholecystitis, no gallstones. He was medically treated, improved, and discharged home on 2017. C. diff was negative. 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 Chest x-ray was completed in the emergency department showed interstitial pulmonary edema, masslike areas of opacity at the midlung levels representing pseudotumors the previously seen on CAT scans and chest x-rays. CT of the abdomen and pelvis with no bowel obstruction or pneumoperitoneum. It showed interval development of right inguinal hernia, possible incarceration. She was seen by surgery, and the right inguinal hernia was manually reduced. There were bilateral pleural effusions seen on the CT of abdomen and pelvis. Lab work was reviewed, no leukocytosis, WBC is 5.5, hemoglobin is 11.2, INR is 2.7, and 39, potassium is 4.1, CO2 is 21, BUN is 32 and creatinine is 1.46. Patient was started on IV Lasix 40 mg every 12 hours, he denies chest pain at this time , currently in no acute distress, she is on 4 L per nasal cannula and his pulse ox was 100%, afebrile, and this afternoon axillary temperatures of 95.4, not sure how accurate these temperatures are, his skin is dry and warm. Blood pressures are 132/88, patient is urinating per urinal. Lung sounds are diminished bilateral bases, patient has a congested cough. There is 1+ pitting edema in his right lower extremity, and there are open wounds on his right lynch area with small amount of yellow drainage. This is covered with a dressing. On 08/11/2018 I'm seeing this patient for a follow-up. He was in consultation yesterday. He is an elderly male patient who came with abdominal pain that was attributed to an incarcerated right inguinal hernia that was reduced by general surgery. The patient is not having any significant abdominal pain today. He has however multiple medical problems and comorbidities that were listed earlier. He is resting comfortably in bed. He is afebrile. No nausea vomiting or emesis. No chest pain. He is known to have coronary artery disease , congestion heart failure, CHF with ejection fraction 45-50%, chronic atrial fibrillation, previous history of BKA of the left lower extremity, dementia, hypertension, BPH and previous history of pseudotumors in his lungs the largest one being on the right and he has had previous admissions to the intensive care unit it was taken care of and the patient was discharged successfully. Currently, the patient is resting comfortably in bed. He is on Lasix to optimize volume status and is receiving 40 mg of IV Lasix every 12 hours. He has been on long-term articulation with warfarin with an INR of 1.8. Renal function is stable with a creatinine of 1.39. White cell count is not elevated. On 08/12/2018 patient seen in follow-up on selective care unit. She is sitting up in a chair, patient is extremely hard of hearing, and difficult to communicate with, eyes any acute distress, although he still has some discomfort in the groin area, states in the private area. No abdominal discomfort. Patient did have a bowel movement yesterday. He is tolerating oral intake, no nausea or vomiting, 3 days per nasal cannula, his pulse ox is 93 %, he is afebrile, respirations are nonlabored, lung sounds are positive for bilateral lower base crackles. Patient is being diuresed, remains on Lasix 40 mg every 12 hours. Denies any chest pain. Remains in A. fib. Rate controlled. Obtain repeat chest x-ray tomorrow, but surgery on August for repair of right inguinal herniam, once optimized medically from pulmonary and cardiology standpoint. On 08/14/2018 patient seen in follow-up on selective care unit. He is awake and alert, denies any acute distress, denies any difficulty breathing, denies any inguinal discomfort at the moment. Remains on 2 L per nasal cannula his pulse ox is 99%, he is afebrile, hemodynamically stable. Cultures are negative , patient is maintaining negative fluid balance, he continues to diurese. Lung sounds are clear, diminished at the bases. His labs have been reviewed, WBC is 4.1, hemoglobin is 10.5, INR is 2.0, electrolytes and renal profile are essentially unremarkable, with the exception of CO2 which is at 35. Right lower extremity edema is improving, open areas on the right anterior lynch area covered with a dressing. On 08/15/2018 patient seen in follow-up on selective care unit. Sitting up in the chair, in no acute distress, pulse oximetry liters per nasal cannula was 97% , he is afebrile, denies any shortness of breath or chest pain. Edema in the right lower extremity is improving. He is wearing his prosthesis on the left leg. His INR is therapeutic today, 2.1. No leukocytosis, hemoglobin is 11.0, sodium is 139, potassium is 3.5, chloride is 97, CO2 is 36, B1 is 21 creatinine is 1.09. Patient is passing bowel movements, denies any abdominal or inguinal discomfort today. Today's chest x-ray has been reviewed and shows persistence of bilateral infiltrates, however better aeration noted at the bases. Likely patient denies any worsening shortness of breath, or chest pain. Continues to diurese, he is in -1473 fluid balance Objective - Vital Signs Vital signs: Vital Signs Temp 97.1 F L 08/15/18 08:00 Pulse 62 08/15/18 08:00 Resp 20 08/15/18 08:00 BP 132/71 08/15/18 08:00 Pulse Ox 97 08/15/18 08:00 Intake & Output 08/14/18 08/15/18 08/15/18 18:59 06:59 18:59 Intake Total 867 60 120 Output Total 600 1800 Balance 267 -1740 120 Weight 79.1 kg Intake: IV 30 60 0.9 40 Invasive Line 2 30 20 Oral 837 120 Output: Urine 600 1800 Other: Voiding Method Urinal # Voids 2 2 - Exam GENERAL EXAM: Alert, pleasant, 83-year-old white male, very hard of hearing comfortable in no apparent distress. HEAD: Normocephalic/atraumatic. EYES: Normal reaction of pupils, equal size. Conjunctiva pink, sclera white. NOSE: Clear with pink turbinates. THROAT: No erythema or exudates. NECK: No masses, no JVD, no thyroid enlargement, no adenopathy. CHEST: No chest wall deformity. Symmetrical expansion. Diminished breath sounds at bases, and has a congested cough LUNGS: Equal air entry with diminished breath sounds at the bases, but no wheeze , rhonchi or dullness. Congestive cough, diminished breath sounds CVS: Irregular rate and rhythm, normal S1 and S2, no gallops, no murmurs, no rubs ABDOMEN: Soft, nontender. No hepatosplenomegaly, normal bowel sounds, no guarding or rigidity. EXTREMITIES: No clubbing, no cyanosis, 2+ pulses and upper and lower extremities. Right lower extremity edema, there is open weeping wound on his right anterior lynch area, with yellow drainage MUSCULOSKELETAL: Muscle strength and tone normal. SPINE: No scoliosis or deformity SKIN: No rashes CENTRAL NERVOUS SYSTEM: Alert and oriented -1. No focal deficits, tone is normal in all 4 extremities. - Labs CBC & Chem 7: 08/15/18 07:37 08/15/18 07:37 Labs: Abnormal Lab Results - Last 24 Hours (Table) 08/14/18 08/14/18 08/14/18 Range/Units 11:39 16:33 21:02 RBC (4.30-5.90) m/uL Hgb (13.0-17.5) gm/dL Hct (39.0-53.0) % MCHC (31.0-37.0) g/dL RDW (11.5-15.5) % PT (9.0-12.0) sec INR (<1.2) Chloride (98-107) mmol/L Carbon Dioxide (22-30) mmol/L BUN (9-20) mg/dL Glucose (74-99) mg/dL POC Glucose (mg/dL) 128 H 133 H 108 H (75-99) mg/dL ALT (21-72) U/L Albumin (3.5-5.0) g/dL 08/15/18 08/15/18 08/15/18 Range/Units 07:37 07:37 07:37 RBC 4.05 L (4.30-5.90) m/uL Hgb 11.0 L (13.0-17.5) gm/dL Hct 35.7 L (39.0-53.0) % MCHC 30.9 L (31.0-37.0) g/dL RDW 18.4 H (11.5-15.5) % PT 18.6 H (9.0-12.0) sec INR 2.1 H (<1.2) Chloride 97 L (98-107) mmol/L Carbon Dioxide 36 H (22-30) mmol/L BUN 21 H (9-20) mg/dL Glucose 110 H (74-99) mg/dL POC Glucose (mg/dL) (75-99) mg/dL ALT 19 L (21-72) U/L Albumin 2.7 L (3.5-5.0) g/dL 08/15/18 Range/Units 11:09 RBC (4.30-5.90) m/uL Hgb (13.0-17.5) gm/dL Hct (39.0-53.0) % MCHC (31.0-37.0) g/dL RDW (11.5-15.5) % PT (9.0-12.0) sec INR (<1.2) Chloride (98-107) mmol/L Carbon Dioxide (22-30) mmol/L BUN (9-20) mg/dL Glucose (74-99) mg/dL POC Glucose (mg/dL) 183 H (75-99) mg/dL ALT (21-72) U/L Albumin (3.5-5.0) g/dL Microbiology - Last 24 Hours (Table) 08/09/18 11:00 Blood Culture - Preliminary Blood No Growth after 120 hours Assessment and Plan Plan: Assessment: #1. Acute abdominal pain, incarcerated right inguinal hernia. #2. Lactic acidosis #3. Dyspnea related to bilateral pleural effusions, acute CHF exacerbation with her previously impaired systolic dysfunction . #4. Recent hospitalization for abdominal pain, colitis, and sepsis. #5. Acute kidney injury, is renal function was impaired during his last hospitalization, patient was discharged home, creatinine of 1.63, current creatinine has improved, they have 1.46. #6. Chronic atrial fibrillation on Coumadin, with INR of 2.7, #7. Elevated troponins #8. Pseudotumors within the right lung previously noted on previous CAT scans and chest x-rays #9. Hypothyroidism on thyroid mode replacement #10. 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 Right lower leg open wound . #12. History of dementia #13. Osteoarthritis #14. BPH #15. General medical debility, and impaired performance and functional status Plan: Today's chest x-ray has been reviewed his persistence of bilateral infiltrates, but better aeration noted at the bases. Continue IV diuretics. Patient is being evaluated for surgery for repair of the right inguinal hernia, no persistence of abdominal pain, patient is passing bowel movements. Afebrile. Denies any chest pain or worsening shortness of breath. I performed a history & physical examination of the patient and discussed their management with my nurse practitioner, Henny Walsh. I reviewed the nurse practitioner's note and agree with the documented findings and plan of care. Lung sounds are diminished, with bibasilar crackles. The findings and the impression was discussed with the patient. I attest to the documentation by the nurse practitioner. Time with Patient: Less than 30
--- NOTE | 2018-08-15 12:42 | P.PN ---
Subjective Progress Note Date: 08/15/18 This is a 83-year-old male with a recent prolonged hospitalization earlier in July for sepsis with possible ischemic colitis. Patient completed a course antibiotics as of yesterday with Ceftin and Flagyl. Her patient's caregivers patient has been more short of breath especially with activity. They 've noted significant right lower extremity edema and edema in the back as well. Patient also started complaining of abdominal pain. No nausea or vomiting. Decreased appetite. Having small bowel movements and constipation. Patient was brought into the emergency room for further evaluation and treatment for congestive heart failure exacerbation. BNP was 84,500. Chest x- ray reports to correlate for CHF with interstitial pulmonary edema and mass like area of opacity in the right mid lung. Patient started on IV Lasix. Also note her caregivers that Lasix had been decreased from 40 mg daily down to 20 mg daily. Patient did have some acute kidney injury on his previous hospitalization in Lasix dose was adjusted. Patient also has a known history of chronic atrial fibrillation in which she is anticoagulated with Coumadin, COPD, diabetes mellitus, GERD, hyperlipidemia, hypertension, myocardial infarction, obstructive sleep apnea, congestive heart failure with an EF of 45- 50%. On admission patient also had elevated lactic acid of 3.4 troponin elevated at 0.085 creatinine 1.46. Pulmonary, cardiology and surgical consults have been placed. Patient has had abdominal pain in the center of his abdomen similar to his last admission. Patient is hard of hearing and most of history was obtained from the caregivers. On 08/10/2018 patient is currently resting comfortably in bed. At this time patient denies chest pain or shortness of breath. Patient denies any urinary frequency or burning. Patient denies nausea vomiting diarrhea 08/11/2018 patient resting comfortably. Patient awakes easily. No complaints of pain. He's had decrease in his weight from 87.2 kg to 85.5 kg. Remains on the IV Lasix. Creatinine has decreased from 1.56-1.39 INR 1.8. 08/12/2018 patient remains on IV Lasix. Weight has decreased from 85.5-84 kg. Patient reported left lower rib pain during the evening improved with IV Dilaudid. Patient also has been having cardiac pauses up to 3 seconds. Toprol all had been decreased to 25 mg twice a day. Cardiology has been made aware of continue his cardiac pauses. Patient is also having some dry skin and itching near the IV site. Eucerin lotion has been ordered. Potassium 3.1. Hemoglobin down to 10.5. INR 1.7 creatinine decreased from 1.39-1.33 08/15/2018 patient remains on IV Lasix. Weight has decreased from 81.1 kg down to 79 kg. Chest x-ray showing bilateral lung infiltrates worsening on the left cannot exclude underlying mass. Pulmonary service is following. Patient has had no further cardiac causes. At this time surgical service is holding off on any surgery. Abdominal hernia showing improvement. Patient denies any abdominal pain denies any nausea or vomiting. Reports having bowel movements. Still having some shortness of breath especially with activity. Objective - Vital Signs Vital signs: Vital Signs Temp 97.1 F L 08/15/18 08:00 Pulse 62 08/15/18 08:00 Resp 20 08/15/18 08:00 BP 132/71 08/15/18 08:00 Pulse Ox 97 08/15/18 08:00 Intake & Output 08/14/18 08/15/18 08/15/18 18:59 06:59 18:59 Intake Total 867 60 120 Output Total 600 1800 300 Balance 267 -1740 -180 Weight 79.1 kg Intake: IV 30 60 0.9 40 Invasive Line 2 30 20 Oral 837 120 Output: Urine 600 1800 300 Other: Voiding Method Urinal # Voids 2 2 - Exam Head normocephalic Neck supple Lungs clear to auscultation bilaterally no wheezing or crackles Heart regular rate and rhythm S1-S2, no rub or gallop positive murmur Abdomen is soft nontender nondistended positive bowel sounds no hepatosplenomegaly Extremities +1 edema right lower extremity. Fluid blister has opened on the right tibia. No evidence of cellulitis. left [id number] amputation. Neuro alert and orientated to 3 hard of hearing - Labs CBC & Chem 7: 08/15/18 07:37 08/15/18 07:37 Labs: Abnormal Lab Results - Last 24 Hours (Table) 08/14/18 08/14/18 08/15/18 Range/Units 16:33 21:02 07:37 RBC 4.05 L (4.30-5.90) m/uL Hgb 11.0 L (13.0-17.5) gm/dL Hct 35.7 L (39.0-53.0) % MCHC 30.9 L (31.0-37.0) g/dL RDW 18.4 H (11.5-15.5) % PT (9.0-12.0) sec INR (<1.2) Chloride (98-107) mmol/L Carbon Dioxide (22-30) mmol/L BUN (9-20) mg/dL Glucose (74-99) mg/dL POC Glucose (mg/dL) 133 H 108 H (75-99) mg/dL ALT (21-72) U/L Albumin (3.5-5.0) g/dL 08/15/18 08/15/18 08/15/18 Range/Units 07:37 07:37 11:09 RBC (4.30-5.90) m/uL Hgb (13.0-17.5) gm/dL Hct (39.0-53.0) % MCHC (31.0-37.0) g/dL RDW (11.5-15.5) % PT 18.6 H (9.0-12.0) sec INR 2.1 H (<1.2) Chloride 97 L (98-107) mmol/L Carbon Dioxide 36 H (22-30) mmol/L BUN 21 H (9-20) mg/dL Glucose 110 H (74-99) mg/dL POC Glucose (mg/dL) 183 H (75-99) mg/dL ALT 19 L (21-72) U/L Albumin 2.7 L (3.5-5.0) g/dL Microbiology - Last 24 Hours (Table) 08/09/18 11:00 Blood Culture - Preliminary Blood No Growth after 120 hours Assessment and Plan Assessment: 1. Acute systolic CHF exacerbation with Shortness of breath with lower extremity edema. Echo shows an EF of 20-25% moderate aortic stenosis severe mitral regurgitation severe trace tricuspid regurgitation and severe pulmonary hypertension. Continue IV Lasix. Cardiology is following. 2. Abdominal pain with recent admission with sepsis and colitis. patient completed antibiotic course 3. Acute on chronic kidney injury, stage III: Nephrology following. Acute kidney injury likely a component of cardiorenal syndrome. 4. Elevated lactic acid level on admission 5. Chronic atrial fibrillation anticoagulated. INR 2.1. Restart Coumadin 2.5 mg daily. Monitor daily PT/INR's 6. Elevated troponin : Likely due to acute renal failure. Patient evaluated by cardiology 7. Severe protein calorie malnutrition: Add Glucerna shakes 8. Possible diabetes mellitus: add sliding scale coverage and A1c 6.0. 9. pseudotumors within the right lung previous is noted on previous CAT scan and chest x-rays. Pulmonary service following 10. Hypothyroidism continue Synthroid 11. Hypomagnesemia give magnesium supplement. Repeat magnesium level 12. Right inguinal hernia that was reduced by surgical service. At this time no surgical intervention is planned per surgical service 13. Right tibia wound from an open blister. Patient seen by infectious disease. They are recommending local wound care with Aquacel Silver 14. Hypokalemia patient receiving potassium supplement 15. Iron deficiency Anemia: Iron low at 33. Start ferrous sulfate 325 mg daily 16. Cardiac pauses: Resolved. Cardiology decreased metoprolol dose further down to 12.5 mg twice a day GI prophylaxis Protonix and DVT prophylaxis Coumadin I performed an examination of the patient and discussed their management with the physician Chief Power Dispatcher. I have reviewed the Physician Chief Power Dispatcher's notes and agree with the documented findings and plan of care
--- NOTE | 2018-08-15 13:05 | PN ---
PROGRESS NOTE Patient is seen for followup for acute kidney injury. Currently, patient is sitting out of bed in a bedside chair. He denies any complaints. He is sleeping, but he is arousable. Blood pressure this morning 132/71, heart rate 62 per minute. He is afebrile. Examination of the heart, S1, S2. Examination of the lungs. bilateral breath sounds are heard. Abdomen is soft, nontender. Examination of the lower extremities shows left BKA and patient's right leg is currently wrapped. STATISTICAL DEVELOPER exam is grossly intact. LABS: Show sodium 139, potassium 3.5, creatinine 1.09, BUN is 21, hemoglobin 11.0. ASSESSMENT: 1. Acute kidney injury, prerenal, currently significantly improved. There is a component of cardiorenal syndrome as well. Patient is maintained on Lasix which we can continue and switch to p.o. Lasix tomorrow. 2. Right foot wound and cellulitis, maintained on antibiotics. 3. Hypertension, currently on Cozaar, which we can continue along with Norvasc and Lopressor. 4. Hypervolemia, fluid overload, currently improved and stable. Maintained on IV Lasix q.12 hours. 5. Chronic atrial fibrillation, currently on Coumadin. 6. History of dementia. PLAN: Continue with IV Lasix for now and encourage increased oral intake. MMODL / IJN: [id number] /
[2018-08-15] MEDS: FERROUS SULFATE 325 MG TAB PO SCH (14:27)
--- NOTE | 2018-08-15 14:37 | P.PN ---
Subjective Progress Note Date: 08/15/18 This is an 83-year-old gentleman who was brought to the hospital because his caregivers noted him to be significantly more short of breath. He also noticed a significant increase in his peripheral edema, he's been having a decreased appetite at home. Apparently was complaining of some abdominal discomfort as well. Patient was brought to the emergency room for further evaluation and treatment, currently receiving treatment for congestive heart failure exacerbation. BNP level on arrival 84,500. Chest x-ray showed CHF with interstitial pulmonary edema and a masslike area of opaque severe in the mid right lung. Continues to be on IV Lasix. Patient also has history of chronic atrial fibrillation, anticoagulated with Coumadin, COPD, sleep apnea, hypothyroidism, diabetes, left BKA, GERD, hyperlipidemia, hypertension, sleep apnea. Lactic acid was noted to be abnormal on admission at 3.4. Patient was seen and examined this morning, lying in bed, he is quite hard of hearing but answers questions appropriately. He did complain this morning of feeling short of breath, when lying flat, this seemed to improve when we raise the head of his bed. Blood pressure this morning 132/80 with a heart rate in the 60s, 100% on 4 L of oxygen. White blood cell count 6.9, hemoglobin 11.2, platelet count 225. INR 2.2, sodium 142, potassium 4.3, BUN 33, creatinine 1.5. 08/11/2018 Patient was seen and examined this morning, still complaining of some shortness of breath, but does state that it's better than yesterday. Weight is down 2 kg today. White blood cell count 6.4, hemoglobin 11.5, platelet count 209. INR today 1.8. Sodium 139, potassium 3.5, BUN 33, creatinine 1.3. Chin used to be on IV Lasix. 08/13/2018. Patient was seen and examined this morning, he is up sitting in the chair today , breathing overall is stable. Looks significantly better overall. Weight is down a considerable amount today. Blood pressure this morning 130/70 with a heart rate of 90, 95% on 3 L of oxygen. White blood cell count 4.8, hemoglobin 11.2, platelet count 172. INR 1.8, sodium 142, potassium 3.5 which we have replaced, BUN 22, creatinine 1.1. Repeat chest x-ray was performed which does show some heart failure. There is also a masslike consolidation within the right midlung which could represent a superimposed pneumonia. Follow-up resolution is recommended to ensure no underlying pulmonary mass. We will continue IV Lasix. 08/15/2018 Patient seen and examined this morning, sitting up in the chair at bedside. Breathing is stable. He was noted to have a run of nonsustained ventricular tachycardiac, 7 beats on the monitor. Sodium 139, potassium 3.5, BUN 21, creatinine 1.0. INR 2.1. Chin used to be on IV Lasix. Repeat chest x-ray today showed bilateral lung infiltrates. Underlying mass is not excluded. We will discontinue the IV Lasix today and start the patient on oral diuretics. Mag level yesterday 1.7, we will give the patient 2 g of mag today. Objective - Vital Signs Vital signs: Vital Signs Temp 97.1 F L 08/15/18 12:00 Pulse 71 08/15/18 12:00 Resp 21 08/15/18 12:00 BP 100/61 08/15/18 12:00 Pulse Ox 97 08/15/18 12:00 Intake & Output 08/14/18 08/15/18 08/15/18 18:59 06:59 18:59 Intake Total 867 60 240 Output Total 600 1800 500 Balance 267 -1740 -260 Weight 79.1 kg Intake: IV 30 60 0.9 40 Invasive Line 2 30 20 Oral 837 240 Output: Urine 600 1800 500 Other: Voiding Method Urinal # Voids 2 2 - Exam PHYSICAL EXAMINATION: GENERAL: 83-year-old gentleman in mild distress respiratory-strickland this morning. HEENT: Head is atraumatic, normocephalic. Pupils equal, round. Sclera anicteric. Patient is very hard of hearing Conjunctiva are clear. Mucous membranes of the mouth are moist. Neck is supple. There is elevated jugular venous pressure, up to the angle of the jaw . no carotid bruit is heard. HEART EXAMINATION: Heart S1 S2 1 systolic murmur is heard.CHEST EXAMINATION: Lungs reveal improvement in air entry bilaterallyl. ABDOMEN: Soft, nontender. Bowel sounds are heard. No organomegaly noted. EXTREMITIES: 1+ peripheral pulses with trace evidence of peripheral edema , patient has a left below the knee amputation NUROLOGIC [patient is awake, alert and oriented X2.] . - Labs CBC & Chem 7: 08/15/18 07:37 08/15/18 07:37 Labs: Abnormal Lab Results - Last 24 Hours (Table) 08/14/18 08/14/18 08/15/18 Range/Units 16:33 21:02 07:37 RBC 4.05 L (4.30-5.90) m/uL Hgb 11.0 L (13.0-17.5) gm/dL Hct 35.7 L (39.0-53.0) % MCHC 30.9 L (31.0-37.0) g/dL RDW 18.4 H (11.5-15.5) % PT (9.0-12.0) sec INR (<1.2) Chloride (98-107) mmol/L Carbon Dioxide (22-30) mmol/L BUN (9-20) mg/dL Glucose (74-99) mg/dL POC Glucose (mg/dL) 133 H 108 H (75-99) mg/dL ALT (21-72) U/L Albumin (3.5-5.0) g/dL 08/15/18 08/15/18 08/15/18 Range/Units 07:37 07:37 11:09 RBC (4.30-5.90) m/uL Hgb (13.0-17.5) gm/dL Hct (39.0-53.0) % MCHC (31.0-37.0) g/dL RDW (11.5-15.5) % PT 18.6 H (9.0-12.0) sec INR 2.1 H (<1.2) Chloride 97 L (98-107) mmol/L Carbon Dioxide 36 H (22-30) mmol/L BUN 21 H (9-20) mg/dL Glucose 110 H (74-99) mg/dL POC Glucose (mg/dL) 183 H (75-99) mg/dL ALT 19 L (21-72) U/L Albumin 2.7 L (3.5-5.0) g/dL Microbiology - Last 24 Hours (Table) 08/09/18 11:00 Blood Culture - Final Blood No Growth after 144 hours Assessment and Plan Plan: Assessment and plan #1 systolic congestive heart failure acute on chronic. Echocardiogram with Doppler study performed on this admission showed an ejection fraction of 20-25% . Moderate aortic stenosis, severe mitral regurg, severe tricuspid regurg, severe pulmonary hypertension. We will continue current dose of IV Lasix. #2 uncontrolled hypertension #3 chronic persistent atrial fibrillation with controlled ventricular response #4 acute on chronic kidney injury #5 abnormal troponin #6 hypothyroidism #7 history of left below the knee amputation #8 inguinal hernia, reduced this morning Plan From cardiology's perspective, we will discontinue IV lasix and start the patient on oral diuretics. Replace potassium. Plan for discharge soon DNP note has been reviewed, I agree with a documented findings and plan of care. Patient was seen and examined.
[2018-08-15 15:27] VITALS: BMI 24.3
[2018-08-15 17:21] LABS: Glucose,Whole Blood 165 mg/dL (75-99)
[2018-08-15] MEDS: WARFARIN 2.5 MG TAB PO SCH (17:39)
[2018-08-15 20:43] LABS: Glucose,Whole Blood 166 mg/dL (75-99)
[2018-08-15] MEDS: SERTRALINE 50 MG TAB PO SCH (21:54)
--- NOTE | 2018-08-15 23:47 | PN ---
PROGRESS NOTE DATE OF SERVICE: 08/15/2018 REASON FOR FOLLOWUP: Right leg wound. INTERVAL HISTORY: The patient is currently afebrile. He seems to be breathing more comfortably. Denies significant chest pain. Occasional cough. No abdominal pain. No nausea or vomiting or any diarrhea. Denies any pain in the right leg area. PHYSICAL EXAMINATION: Blood pressure 125/62 with a pulse of 70, temperature is 97.1. He is 97% on 3 L nasal cannula. General description is an elderly male up in the chair in no distress. RESPIRATORY SYSTEM: Unlabored breathing. Clear to auscultation anteriorly. HEART: S1, S2. Regular rate and rhythm. ABDOMEN: Soft. No tenderness. Right leg wound is currently dressed up. No obvious drainage on the dressing. LABS: Hemoglobin 11, white count 5.2, BUN of 21, creatinine 1.09. DIAGNOSTIC IMPRESSION AND PLAN: Patient with right leg wound with no evidence of any cellulitis. Continue local wound care with Aquacel Silver dressing followed by light Kerlix. No need for systemic antibiotic therapy. Continue with supportive care. MMODL / IJN: [id number] /
[2018-08-16 06:16] LABS: Glucose,Whole Blood 85 mg/dL (75-99)
[2018-08-16] MEDS: INSULIN ASPART 100 UNIT/ML 1 ML 10 ML VIAL SQ SCH ×4 (06:35→22:08)
[2018-08-16] MEDS: LEVOTHYROXINE 25 MCG TAB PO SCH (06:37)
[2018-08-16] MEDS: PANTOPRAZOLE 40 MG TABLET PO SCH ×2 (06:37→17:43)
[2018-08-16 07:20] LABS: Anisocytosis Slight; Basophils % (A) 1 %; Eosinophils # (A) 0.2 k/uL (0-0.7); Eosinophils % (A) 4 %; HCT 32.3 % (39.0-53.0); HGB 10.6 gm/dL (13.0-17.5); Lymphocytes # (A) 1.2 k/uL (1.0-4.8); Lymphocytes % (A) 25 %; MCH 27.8 pg (25.0-35.0); MCHC 32.7 g/dL (31.0-37.0); Mean Platelet Volume 7.9; Monocytes # (A) 0.3 k/uL (0-1.0); Monocytes % (A) 7 %; Neutrophils # (A) 3.1 k/uL (1.3-7.7); Neutrophils % (A) 64 %; Platelet Count 161 k/uL (150-450); RDW 18.6 % (11.5-15.5); WBC 4.9 k/uL (3.8-10.6)
[2018-08-16 07:39] LABS: Albumin 2.5 g/dL (3.5-5.0); Calcium 7.8 mg/dL (8.4-10.2); Magnesium 1.7 mg/dL (1.6-2.3); Potassium 3.8 mmol/L (3.5-5.1); Total Bilirubin 0.8 mg/dL (0.2-1.3)
[2018-08-16 07:47] LABS: INR 2.3 (<1.2)
[2018-08-16 07:48] LABS: Prothrombin Time 20.5 sec (9.0-12.0)
[2018-08-16] MEDS: NITROGLYCERIN OINT 1 INCH/GM PACKET TOPICAL SCH ×4 (08:30→23:09)
[2018-08-16] MEDS: SODIUM CHLORIDE 0.9% 1,000 ML IV SCH (08:31)
[2018-08-16] MEDS: LOSARTAN 25 MG TAB PO SCH (08:31)
[2018-08-16] MEDS: METOPROLOL TARTRATE 12.5 MG TAB PO SCH ×2 (08:31→22:07)
[2018-08-16] MEDS: SUCRALFATE 1 GM TAB PO SCH ×4 (08:32→23:09)
[2018-08-16] MEDS: FERROUS SULFATE 325 MG TAB PO SCH (08:32)
[2018-08-16] MEDS: SENNOSIDES 8.6 MG TAB PO SCH (08:32)
[2018-08-16] MEDS: hydrALAZINE HCL 50 MG TAB PO SCH ×3 (08:32→23:09)
[2018-08-16] MEDS: amLODIPine 5 MG TAB PO SCH (08:32)
[2018-08-16] MEDS: ASPIRIN 81 MG PO SCH (08:32)
[2018-08-16] MEDS: FUROSEMIDE 10 MG/ML 4 ML VIAL IV SCH (08:32)
--- NOTE | 2018-08-16 10:45 | P.PN ---
Subjective Progress Note Date: 08/16/18 Principal diagnosis: Code abdominal pain, incarcerated right inguinal hernia, dyspnea, pleural effusions, acute CHF exacerbation This is a 83-year-old white male patient who was brought to the emergency department by a family member for complaint of abdominal pain, shortness of breath related to increased pain. Abdominal pain is in the right lower quadrant. Patient was recently in the hospital with lower abdominal pain, with lactic acidosis. CT of the abdomen showed prominent fluid within mildly thickened mid to lower abdominal small bowel loops, patient was treated for enterocolitis with Rocephin and Flagyl, was sent home on Cipro and Flagyl at discharge. During that admission patient also had abnormal LFTs with dilated gallbladder, ultrasound of the gallbladder showed large gallbladder with mild wall thickening and pericolic cystic fluid consistent with cholecystitis, no gallstones. He was medically treated, improved, and discharged home on 2017. C. diff was negative. 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 Chest x-ray was completed in the emergency department showed interstitial pulmonary edema, masslike areas of opacity at the midlung levels representing pseudotumors the previously seen on CAT scans and chest x-rays. CT of the abdomen and pelvis with no bowel obstruction or pneumoperitoneum. It showed interval development of right inguinal hernia, possible incarceration. She was seen by surgery, and the right inguinal hernia was manually reduced. There were bilateral pleural effusions seen on the CT of abdomen and pelvis. Lab work was reviewed, no leukocytosis, WBC is 5.5, hemoglobin is 11.2, INR is 2.7, and 39, potassium is 4.1, CO2 is 21, BUN is 32 and creatinine is 1.46. Patient was started on IV Lasix 40 mg every 12 hours, he denies chest pain at this time , currently in no acute distress, she is on 4 L per nasal cannula and his pulse ox was 100%, afebrile, and this afternoon axillary temperatures of 95.4, not sure how accurate these temperatures are, his skin is dry and warm. Blood pressures are 132/88, patient is urinating per urinal. Lung sounds are diminished bilateral bases, patient has a congested cough. There is 1+ pitting edema in his right lower extremity, and there are open wounds on his right lynch area with small amount of yellow drainage. This is covered with a dressing. On 08/11/2018 I'm seeing this patient for a follow-up. He was in consultation yesterday. He is an elderly male patient who came with abdominal pain that was attributed to an incarcerated right inguinal hernia that was reduced by general surgery. The patient is not having any significant abdominal pain today. He has however multiple medical problems and comorbidities that were listed earlier. He is resting comfortably in bed. He is afebrile. No nausea vomiting or emesis. No chest pain. He is known to have coronary artery disease , congestion heart failure, CHF with ejection fraction 45-50%, chronic atrial fibrillation, previous history of BKA of the left lower extremity, dementia, hypertension, BPH and previous history of pseudotumors in his lungs the largest one being on the right and he has had previous admissions to the intensive care unit it was taken care of and the patient was discharged successfully. Currently, the patient is resting comfortably in bed. He is on Lasix to optimize volume status and is receiving 40 mg of IV Lasix every 12 hours. He has been on long-term articulation with warfarin with an INR of 1.8. Renal function is stable with a creatinine of 1.39. White cell count is not elevated. On 08/12/2018 patient seen in follow-up on selective care unit. She is sitting up in a chair, patient is extremely hard of hearing, and difficult to communicate with, eyes any acute distress, although he still has some discomfort in the groin area, states in the private area. No abdominal discomfort. Patient did have a bowel movement yesterday. He is tolerating oral intake, no nausea or vomiting, 3 days per nasal cannula, his pulse ox is 93 %, he is afebrile, respirations are nonlabored, lung sounds are positive for bilateral lower base crackles. Patient is being diuresed, remains on Lasix 40 mg every 12 hours. Denies any chest pain. Remains in A. fib. Rate controlled. Obtain repeat chest x-ray tomorrow, but surgery on August for repair of right inguinal herniam, once optimized medically from pulmonary and cardiology standpoint. On 08/14/2018 patient seen in follow-up on selective care unit. He is awake and alert, denies any acute distress, denies any difficulty breathing, denies any inguinal discomfort at the moment. Remains on 2 L per nasal cannula his pulse ox is 99%, he is afebrile, hemodynamically stable. Cultures are negative , patient is maintaining negative fluid balance, he continues to diurese. Lung sounds are clear, diminished at the bases. His labs have been reviewed, WBC is 4.1, hemoglobin is 10.5, INR is 2.0, electrolytes and renal profile are essentially unremarkable, with the exception of CO2 which is at 35. Right lower extremity edema is improving, open areas on the right anterior lynch area covered with a dressing. On 08/15/2018 patient seen in follow-up on selective care unit. Sitting up in the chair, in no acute distress, pulse oximetry liters per nasal cannula was 97% , he is afebrile, denies any shortness of breath or chest pain. Edema in the right lower extremity is improving. He is wearing his prosthesis on the left leg. His INR is therapeutic today, 2.1. No leukocytosis, hemoglobin is 11.0, sodium is 139, potassium is 3.5, chloride is 97, CO2 is 36, B1 is 21 creatinine is 1.09. Patient is passing bowel movements, denies any abdominal or inguinal discomfort today. Today's chest x-ray has been reviewed and shows persistence of bilateral infiltrates, however better aeration noted at the bases. Likely patient denies any worsening shortness of breath, or chest pain. Continues to diurese, he is in -1473 fluid balance On 08/16/2018 patient seen in follow-up on selective care unit. He states his more short of breath today, sitting up in the chair, as any chest pain, lung sounds are positive for coarse crackles over bilateral posterior lower lobes. TMs to diurese, he is -1420 ML fluid balance. He is down another 0.7 kg in the last 24 hours. His edema in his right upper extremity is improving. Patient had a bowel movement yesterday, he denies any abdominal or inguinal discomfort. Patient is considered to be high surgical risk view of his severely impaired left ventricular systolic function, with an EF of 20-25%, heart disease, acute on chronic congestive heart failure, and surgical intervention is on hold right now. Objective - Vital Signs Vital signs: Vital Signs Temp 97 F L 08/16/18 08:32 Pulse 78 08/16/18 08:32 Resp 18 08/16/18 08:32 BP 139/72 08/16/18 08:32 Pulse Ox 95 08/16/18 08:32 Intake & Output 08/15/18 08/16/18 08/16/18 18:59 06:59 18:59 Intake Total 480 Output Total 500 1400 350 Balance -20 -1400 -350 Weight 79.1 kg 78.4 kg Intake: Oral 480 Output: Urine 500 1400 350 Other: Voiding Method Urinal Urinal # Voids 2 # Bowel Movements 1 - Exam GENERAL EXAM: Alert, pleasant, 83-year-old white male, very hard of hearing comfortable in no apparent distress. HEAD: Normocephalic/atraumatic. EYES: Normal reaction of pupils, equal size. Conjunctiva pink, sclera white. NOSE: Clear with pink turbinates. THROAT: No erythema or exudates. NECK: No masses, no JVD, no thyroid enlargement, no adenopathy. CHEST: No chest wall deformity. Symmetrical expansion. Diminished breath sounds at bases, and has a congested cough LUNGS: Equal air entry with diminished breath sounds at the bases, coarse crackles over bilateral lower lobes. Congestive cough, diminished breath sounds CVS: Irregular rate and rhythm, normal S1 and S2, no gallops, no murmurs, no rubs ABDOMEN: Soft, nontender. No hepatosplenomegaly, normal bowel sounds, no guarding or rigidity. EXTREMITIES: No clubbing, no cyanosis, 2+ pulses and upper and lower extremities. Right lower extremity edema, there is open weeping wound on his right anterior lynch area, with yellow drainage MUSCULOSKELETAL: Muscle strength and tone normal. SPINE: No scoliosis or deformity SKIN: No rashes CENTRAL NERVOUS SYSTEM: Alert and oriented -1. No focal deficits, tone is normal in all 4 extremities. - Labs CBC & Chem 7: 08/16/18 06:36 08/16/18 06:36 Labs: Abnormal Lab Results - Last 24 Hours (Table) 08/15/18 08/15/18 08/15/18 Range/Units 11:09 16:47 20:36 RBC (4.30-5.90) m/uL Hgb (13.0-17.5) gm/dL Hct (39.0-53.0) % RDW (11.5-15.5) % PT (9.0-12.0) sec INR (<1.2) Chloride (98-107) mmol/L Carbon Dioxide (22-30) mmol/L BUN (9-20) mg/dL POC Glucose (mg/dL) 183 H 165 H 166 H (75-99) mg/dL Calcium (8.4-10.2) mg/dL Total Protein (6.3-8.2) g/dL Albumin (3.5-5.0) g/dL 08/16/18 08/16/18 08/16/18 Range/Units 06:36 06:36 06:36 RBC 3.80 L (4.30-5.90) m/uL Hgb 10.6 L (13.0-17.5) gm/dL Hct 32.3 L (39.0-53.0) % RDW 18.6 H (11.5-15.5) % PT 20.5 H (9.0-12.0) sec INR 2.3 H (<1.2) Chloride 95 L (98-107) mmol/L Carbon Dioxide 35 H (22-30) mmol/L BUN 21 H (9-20) mg/dL POC Glucose (mg/dL) (75-99) mg/dL Calcium 7.8 L (8.4-10.2) mg/dL Total Protein 6.0 L (6.3-8.2) g/dL Albumin 2.5 L (3.5-5.0) g/dL Microbiology - Last 24 Hours (Table) 08/09/18 11:00 Blood Culture - Final Blood No Growth after 144 hours Assessment and Plan Plan: Assessment: #1. Acute abdominal pain, incarcerated right inguinal hernia. #2. Lactic acidosis #3. Dyspnea related to bilateral pleural effusions, acute CHF exacerbation with her previously impaired systolic dysfunction . #4. Recent hospitalization for abdominal pain, colitis, and sepsis. #5. Acute kidney injury, is renal function was impaired during his last hospitalization, patient was discharged home, creatinine of 1.63, current creatinine has improved, they have 1.46. #6. Chronic atrial fibrillation on Coumadin, with INR of 2.7, #7. Elevated troponins #8. Pseudotumors within the right lung previously noted on previous CAT scans and chest x-rays #9. Hypothyroidism on thyroid mode replacement #10. 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 Right lower leg open wound . #12. History of dementia #13. Osteoarthritis #14. BPH #15. General medical debility, and impaired performance and functional status Plan: Volume status continues to improve. Patient is a little more short of breath today, with any exertion. Denies any chest pain. No fever or chills, medicines remains stable, patient is maintaining stable oxygenation on 2 L per nasal cannula. Continues on diuretics. Surgical intervention for repair of the right inguinal hernia is on hold at this time in view of patient's significant cardiac issues. Patient is a high risk postoperative complications related to multiple comorbidities, overall general medical debility, impaired performance. I performed a history & physical examination of the patient and discussed their management with my nurse practitioner, Henny Walsh. I reviewed the nurse practitioner's note and agree with the documented findings and plan of care. Lung sounds are diminished, with bibasilar crackles. The findings and the impression was discussed with the patient. I attest to the documentation by the nurse practitioner. Time with Patient: Less than 30
--- NOTE | 2018-08-16 10:51 | P.PN ---
Subjective Progress Note Date: 08/16/18 83-year-old male seen this morning at the bedside resting in bed awakens to verbal stimuli when questioning patient is denying abdominal pain denies chest pain dizziness lightheadedness or shortness of breath patient states "anxious to go home" surgical eval was requested when patient's initial presentation was with a incidental right inguinal hernia. Which at the bedside was manually reduced by the surgeon Patient is considered overall high risk surgically secondary to comorbidities such as heart failure including COPD and deconditioned Objective - Vital Signs Vital signs: Vital Signs Temp 97 F L 08/16/18 08:32 Pulse 78 08/16/18 08:32 Resp 18 08/16/18 08:32 BP 139/72 08/16/18 08:32 Pulse Ox 95 08/16/18 08:32 Intake & Output 08/15/18 08/16/18 08/16/18 18:59 06:59 18:59 Intake Total 480 Output Total 500 1400 350 Balance -20 -1400 -350 Weight 79.1 kg 78.4 kg Intake: Oral 480 Output: Urine 500 1400 350 Other: Voiding Method Urinal Urinal # Voids 2 # Bowel Movements 1 - Labs CBC & Chem 7: 08/16/18 06:36 08/16/18 06:36 Labs: Abnormal Lab Results - Last 24 Hours (Table) 08/15/18 08/15/18 08/15/18 Range/Units 11:09 16:47 20:36 RBC (4.30-5.90) m/uL Hgb (13.0-17.5) gm/dL Hct (39.0-53.0) % RDW (11.5-15.5) % PT (9.0-12.0) sec INR (<1.2) Chloride (98-107) mmol/L Carbon Dioxide (22-30) mmol/L BUN (9-20) mg/dL POC Glucose (mg/dL) 183 H 165 H 166 H (75-99) mg/dL Calcium (8.4-10.2) mg/dL Total Protein (6.3-8.2) g/dL Albumin (3.5-5.0) g/dL 08/16/18 08/16/18 08/16/18 Range/Units 06:36 06:36 06:36 RBC 3.80 L (4.30-5.90) m/uL Hgb 10.6 L (13.0-17.5) gm/dL Hct 32.3 L (39.0-53.0) % RDW 18.6 H (11.5-15.5) % PT 20.5 H (9.0-12.0) sec INR 2.3 H (<1.2) Chloride 95 L (98-107) mmol/L Carbon Dioxide 35 H (22-30) mmol/L BUN 21 H (9-20) mg/dL POC Glucose (mg/dL) (75-99) mg/dL Calcium 7.8 L (8.4-10.2) mg/dL Total Protein 6.0 L (6.3-8.2) g/dL Albumin 2.5 L (3.5-5.0) g/dL Microbiology - Last 24 Hours (Table) 08/09/18 11:00 Blood Culture - Final Blood No Growth after 144 hours Assessment and Plan Assessment: Impression Present on admission abdominal pain suspect due to right inguinal hernia CT abdomen and pelvis indicate no obstruction air-fluid loop of colon noted Per advance directives no CODE STATUS Dementia with no behavior disturbance Chronic atrial fibrillation on long-term anticoagulation Coumadin History of a left below the knee amputation Ultrasound prior admission showed dilated gallbladder possible cholecystitis Severe protein calorie malnutrition Masslike area in the right midlung Abdominal pain with a recent admission sepsis colitis. Thanks Elevated troponin suspect due to elevated creatinine Present on admission shortness of breath suspect due to an acute exacerbation of chronic systolic heart failure EF on a current echo severely impaired between 20 and 25% Debilitated chronic limited ability to participate in ADLs Ultrasound of gallbladder done 07/22/2018 showed thickening gallbladder wall Inguinal hernia manually reduced this admission Plan Surgical intervention continues to be on hold patient is asymptomatic and inguinal hernia has been reduced Surgery will be on hold until patient is medically stable from a pulmonary and cardiology perspective Continue recommendations by cardiology and pulmonary DVT and GI prophylaxis Further surgical recommendations pending PT OT The above impression and plan of care have been discussed and directed by signing physician. Anita Fortune nurse practitioner acting as scribe for signing physician.
[2018-08-16 12:03] LABS: Glucose,Whole Blood 109 mg/dL (75-99)
--- NOTE | 2018-08-16 14:41 | P.PN ---
Subjective Progress Note Date: 08/16/18 This is an 83-year-old gentleman who was brought to the hospital because his caregivers noted him to be significantly more short of breath. He also noticed a significant increase in his peripheral edema, he's been having a decreased appetite at home. Apparently was complaining of some abdominal discomfort as well. Patient was brought to the emergency room for further evaluation and treatment, currently receiving treatment for congestive heart failure exacerbation. BNP level on arrival 84,500. Chest x-ray showed CHF with interstitial pulmonary edema and a masslike area of opaque severe in the mid right lung. Continues to be on IV Lasix. Patient also has history of chronic atrial fibrillation, anticoagulated with Coumadin, COPD, sleep apnea, hypothyroidism, diabetes, left BKA, GERD, hyperlipidemia, hypertension, sleep apnea. Lactic acid was noted to be abnormal on admission at 3.4. Patient was seen and examined this morning, lying in bed, he is quite hard of hearing but answers questions appropriately. He did complain this morning of feeling short of breath, when lying flat, this seemed to improve when we raise the head of his bed. Blood pressure this morning 132/80 with a heart rate in the 60s, 100% on 4 L of oxygen. White blood cell count 6.9, hemoglobin 11.2, platelet count 225. INR 2.2, sodium 142, potassium 4.3, BUN 33, creatinine 1.5. 08/11/2018 Patient was seen and examined this morning, still complaining of some shortness of breath, but does state that it's better than yesterday. Weight is down 2 kg today. White blood cell count 6.4, hemoglobin 11.5, platelet count 209. INR today 1.8. Sodium 139, potassium 3.5, BUN 33, creatinine 1.3. Chin used to be on IV Lasix. 08/13/2018. Patient was seen and examined this morning, he is up sitting in the chair today , breathing overall is stable. Looks significantly better overall. Weight is down a considerable amount today. Blood pressure this morning 130/70 with a heart rate of 90, 95% on 3 L of oxygen. White blood cell count 4.8, hemoglobin 11.2, platelet count 172. INR 1.8, sodium 142, potassium 3.5 which we have replaced, BUN 22, creatinine 1.1. Repeat chest x-ray was performed which does show some heart failure. There is also a masslike consolidation within the right midlung which could represent a superimposed pneumonia. Follow-up resolution is recommended to ensure no underlying pulmonary mass. We will continue IV Lasix. 08/15/2018 Patient seen and examined this morning, sitting up in the chair at bedside. Breathing is stable. He was noted to have a run of nonsustained ventricular tachycardiac, 7 beats on the monitor. Sodium 139, potassium 3.5, BUN 21, creatinine 1.0. INR 2.1. Chin used to be on IV Lasix. Repeat chest x-ray today showed bilateral lung infiltrates. Underlying mass is not excluded. We will discontinue the IV Lasix today and start the patient on oral diuretics. Mag level yesterday 1.7, we will give the patient 2 g of mag today. 08/16/2018 Patient seen and examined this morning. He sitting up in his chair at bedside, feels well. Anticipating discharge home today. IV Lasix will be discontinued and patient will be initiated on oral diuretics. He may be able to be discharged from cardiology's perspective. Objective - Vital Signs Vital signs: Vital Signs Temp 96.8 F L 08/16/18 11:29 Pulse 89 08/16/18 11:29 Resp 18 08/16/18 11:29 BP 100/62 08/16/18 11:29 Pulse Ox 95 08/16/18 08:32 Intake & Output 08/15/18 08/16/18 08/16/18 18:59 06:59 18:59 Intake Total 480 Output Total 500 1400 350 Balance -20 -1400 -350 Weight 79.1 kg 78.4 kg Intake: Oral 480 Output: Urine 500 1400 350 Other: Voiding Method Urinal Urinal # Voids 2 # Bowel Movements 1 - Exam PHYSICAL EXAMINATION: GENERAL: 83-year-old gentleman in mild distress respiratory-strickland this morning. HEENT: Head is atraumatic, normocephalic. Pupils equal, round. Sclera anicteric. Patient is very hard of hearing Conjunctiva are clear. Mucous membranes of the mouth are moist. Neck is supple. There is elevated jugular venous pressure, up to the angle of the jaw . no carotid bruit is heard. HEART EXAMINATION: Heart S1 S2 1 systolic murmur is heard.CHEST EXAMINATION: Lungs reveal improvement in air entry bilaterallyl. ABDOMEN: Soft, nontender. Bowel sounds are heard. No organomegaly noted. EXTREMITIES: 1+ peripheral pulses with trace evidence of peripheral edema , patient has a left below the knee amputation NUROLOGIC [patient is awake, alert and oriented X2.] . - Labs CBC & Chem 7: 08/16/18 06:36 08/16/18 06:36 Labs: Abnormal Lab Results - Last 24 Hours (Table) 08/15/18 08/15/18 08/16/18 Range/Units 16:47 20:36 06:36 RBC 3.80 L (4.30-5.90) m/uL Hgb 10.6 L (13.0-17.5) gm/dL Hct 32.3 L (39.0-53.0) % RDW 18.6 H (11.5-15.5) % PT (9.0-12.0) sec INR (<1.2) Chloride (98-107) mmol/L Carbon Dioxide (22-30) mmol/L BUN (9-20) mg/dL POC Glucose (mg/dL) 165 H 166 H (75-99) mg/dL Calcium (8.4-10.2) mg/dL Total Protein (6.3-8.2) g/dL Albumin (3.5-5.0) g/dL 08/16/18 08/16/18 08/16/18 Range/Units 06:36 06:36 11:59 RBC (4.30-5.90) m/uL Hgb (13.0-17.5) gm/dL Hct (39.0-53.0) % RDW (11.5-15.5) % PT 20.5 H (9.0-12.0) sec INR 2.3 H (<1.2) Chloride 95 L (98-107) mmol/L Carbon Dioxide 35 H (22-30) mmol/L BUN 21 H (9-20) mg/dL POC Glucose (mg/dL) 109 H (75-99) mg/dL Calcium 7.8 L (8.4-10.2) mg/dL Total Protein 6.0 L (6.3-8.2) g/dL Albumin 2.5 L (3.5-5.0) g/dL Microbiology - Last 24 Hours (Table) 08/09/18 11:00 Blood Culture - Final Blood No Growth after 144 hours Assessment and Plan Plan: Assessment and plan #1 systolic congestive heart failure acute on chronic. Echocardiogram with Doppler study performed on this admission showed an ejection fraction of 20-25% . Moderate aortic stenosis, severe mitral regurg, severe tricuspid regurg, severe pulmonary hypertension. We will discontinue current dose of IV Lasix. Initiate by mouth Lasix #2 uncontrolled hypertension #3 chronic persistent atrial fibrillation with controlled ventricular response #4 acute on chronic kidney injury #5 abnormal troponin #6 hypothyroidism #7 history of left below the knee amputation #8 inguinal hernia, reduced this morning Plan From cardiology's perspective, patient may be able to be discharged home today. Follow-up appointment in the office post discharge. DNP note has been reviewed, I agree with a documented findings and plan of care. Patient was seen and examined.
--- NOTE | 2018-08-16 14:50 | P.DS ---
Providers Date of admission: 08/09/18 12:25 Expected date of discharge: 08/16/18 Attending physician: Nancy Oglesby Consults: 08/09/18 13:47 Consult Physician Routine Consulting Provider: Camilla Vogel Consult Reason/Comments: CHF Do you want consulting provider notified?: Yes 08/09/18 13:48 Consult Physician Routine Consulting Provider: Kentrell Morris Consult Reason/Comments: masslike area on CXR Do you want consulting provider notified?: Yes 08/09/18 14:11 Consult Physician Routine Consulting Provider: Marilynn Snow Consult Reason/Comments: JIMBO Do you want consulting provider notified?: Yes 08/09/18 19:41 Consult Physician Urgent Consulting Provider: Evan Villegas Consult Reason/Comments: hernia Do you want consulting provider notified?: Yes 08/09/18 19:44 Consult Physician Stat Consulting Provider: Asif Castillo Consult Reason/Comments: surgical clearence Do you want consulting provider notified?: Already Contacted 08/11/18 12:30 Consult Physician Routine Consulting Provider: Raul Olivas Consult Reason/Comments: right leg wound Do you want consulting provider notified?: Yes [facility] Course: Discharge diagnosis 1. Acute systolic CHF exacerbation with Shortness of breath with lower extremity edema. Echo shows an EF of 20-25% moderate aortic stenosis severe mitral regurgitation severe trace tricuspid regurgitation and severe pulmonary hypertension. Treated with IV Lasix switched over to oral Lasix. 2. Abdominal pain with recent admission with sepsis and colitis. patient completed antibiotic course 3. Acute on chronic kidney injury, stage III: Nephrology following. Acute kidney injury likely a component of cardiorenal syndrome. 4. Elevated lactic acid level on admission 5. Chronic atrial fibrillation anticoagulated. INR 2.3. Continue Coumadin 6. Elevated troponin : Likely due to acute renal failure. Patient evaluated by cardiology 7. Severe protein calorie malnutrition: Add Glucerna shakes 8. Diet-controlled diabetes mellitus type 2 ,A1c 6.0. Patient has not required any insulin during this admission 9. pseudotumors within the right lung previous is noted on previous CAT scan and chest x-rays. Pulmonary service following 10. Hypothyroidism continue Synthroid 11. Hypomagnesemia 12. Right inguinal hernia that was reduced by surgical service. At this time no surgical intervention is planned per surgical service. Also, patient is not cleared by cardiology for any surgical intervention at this time 13. Right tibia wound from an open blister. Patient seen by infectious disease. They are recommending local wound care with Aquacel Silver 14. Hypokalemia patient receiving potassium supplement 15. Iron deficiency Anemia: Iron low at 33. Start ferrous sulfate 325 mg daily 16. Cardiac pauses: Resolved. Cardiology decreased metoprolol dose further down to 12.5 mg twice a day 17. Episode of nonsustained ventricle tachycardia. Resolved Hospital course This is a 83-year-old male with a recent prolonged hospitalization earlier in July for sepsis with possible ischemic colitis. Patient completed a course antibiotics as of yesterday with Ceftin and Flagyl. Her patient's caregivers patient has been more short of breath especially with activity. They 've noted significant right lower extremity edema and edema in the back as well. Patient also started complaining of abdominal pain. No nausea or vomiting. Decreased appetite. Having small bowel movements and constipation. Patient was brought into the emergency room for further evaluation and treatment for congestive heart failure exacerbation. BNP was 84,500. Chest x- ray reports to correlate for CHF with interstitial pulmonary edema and mass like area of opacity in the right mid lung. Patient started on IV Lasix. Also note her caregivers that Lasix had been decreased from 40 mg daily down to 20 mg daily. Patient did have some acute kidney injury on his previous hospitalization in Lasix dose was adjusted. Patient also has a known history of chronic atrial fibrillation in which she is anticoagulated with Coumadin, COPD, diabetes mellitus, GERD, hyperlipidemia, hypertension, myocardial infarction, obstructive sleep apnea, congestive heart failure with an EF of 45- 50%. On admission patient also had elevated lactic acid of 3.4 troponin elevated at 0.085 creatinine 1.46. Pulmonary, cardiology and surgical consults have been placed. Patient has had abdominal pain in the center of his abdomen similar to his last admission. Patient is hard of hearing and most of history was obtained from the caregivers. On 08/10/2018 patient is currently resting comfortably in bed. At this time patient denies chest pain or shortness of breath. Patient denies any urinary frequency or burning. Patient denies nausea vomiting diarrhea 08/11/2018 patient resting comfortably. Patient awakes easily. No complaints of pain. He's had decrease in his weight from 87.2 kg to 85.5 kg. Remains on the IV Lasix. Creatinine has decreased from 1.56-1.39 INR 1.8. 08/12/2018 patient remains on IV Lasix. Weight has decreased from 85.5-84 kg. Patient reported left lower rib pain during the evening improved with IV Dilaudid. Patient also has been having cardiac pauses up to 3 seconds. Toprol all had been decreased to 25 mg twice a day. Cardiology has been made aware of continue his cardiac pauses. Patient is also having some dry skin and itching near the IV site. Eucerin lotion has been ordered. Potassium 3.1. Hemoglobin down to 10.5. INR 1.7 creatinine decreased from 1.39-1.33 08/15/2018 patient remains on IV Lasix. Weight has decreased from 81.1 kg down to 79 kg. Chest x-ray showing bilateral lung infiltrates worsening on the left cannot exclude underlying mass. Pulmonary service is following. Patient has had no further cardiac causes. At this time surgical service is holding off on any surgery. Abdominal hernia showing improvement. Patient denies any abdominal pain denies any nausea or vomiting. Reports having bowel movements. Still having some shortness of breath especially with activity. 08/16/2018 patient is medically stable for discharge. She has been cleared by consulting physicians for discharge. Cardiology switch her over to oral Lasix. Case discussed with cardiology this morning. They have cleared him for discharge. Weight continued to decrease. Patient was found to have iron deficiency anemia and started on iron supplement during this admission. Cardiology is adjusted blood pressure medications. They have added Norvasc 5 mg daily Lasix dose adjusted to 40 mg daily hydralazine was increased to 50 mg 3 times a day Cozaar added at 25 mg daily and metoprolol decreased to 12.5 twice a day due to some cardiac pauses. INR is therapeutic at discharge. Patient seen by surgical service regarding inguinal hernia. It was reduced during his hospitalization. There was discussion about possible surgical intervention. However, patient is no longer having any pain or discomfort in that area. As well as patient was evaluated by cardiology and felt that he was not a candidate for any surgical intervention. Patient's symptoms have improved. He was seen by physical therapy and they had initially recommended ECF placement. However patient is adamant that he'll be discharged home. He' ll be sent home with home care and physical therapy. He does have assistance at home. Recommend checking CBC, BMP and magnesium level and PT/INR in 3 days I performed an examination of the patient and discussed their management with the physician [employer]. I have reviewed the Physician [employer] Maker's notes and agree with the documented findings and plan of care Patient Condition at Discharge: Stable Plan - Discharge Summary Discharge Rx Participant: No New Discharge Prescriptions: New amLODIPine [Norvasc] 5 mg PO DAILY #30 tab Ferrous Sulfate [Iron (65 MG Elemental)] 325 mg PO DAILY@1200 #30 tab Furosemide [Lasix] 40 mg PO DAILY #30 tab hydrALAZINE HCL [Apresoline] 50 mg PO TID #90 tab Losartan [Cozaar] 25 mg PO DAILY #30 tab Metoprolol Tartrate [Lopressor] 12.5 mg PO BID@0900,2100 #60 tab Warfarin [Coumadin] 2.5 mg PO DAILY@1800 tab Continue Aspirin 81 mg PO DAILY Sucralfate [Carafate] 1 gm PO QID Sertraline HCl [Zoloft] 50 mg PO HS Levothyroxine Sodium 25 mcg PO DAILY Tetrahydrozoline 0.05% Ophth [Visine Eye Drops] 1 drop BOTH EYES DAILY PRN PRN Reason: DRY EYES Sennosides [Senna] 8.6 mg PO DAILY Omeprazole 20 mg PO BID Medihoney 1 applic TOPICAL DAILY PRN PRN Reason: WITH DRESSING CHANGE ON WOUNDS Discontinued Metoprolol Tartrate [Lopressor] 50 mg PO BID@0900,2100 Cefuroxime Axetil [Ceftin] 500 mg PO BID 5 Days #10 tab hydrALAZINE HCL [Apresoline] 25 mg PO BID 30 Days #60 tab Furosemide [Lasix] 20 mg PO DAILY #30 tab Discharge Medication List Aspirin 81 mg PO DAILY 11/05/17 [History] Levothyroxine Sodium 25 mcg PO DAILY 07/21/18 [History] Sertraline HCl [Zoloft] 50 mg PO HS 07/21/18 [History] Sucralfate [Carafate] 1 gm PO QID 07/21/18 [History] Medihoney 1 applic TOPICAL DAILY PRN 08/09/18 [History] Omeprazole 20 mg PO BID 08/09/18 [History] Sennosides [Senna] 8.6 mg PO DAILY 08/09/18 [History] Tetrahydrozoline 0.05% Ophth [Visine Eye Drops] 1 drop BOTH EYES DAILY PRN 08/09 [History] Ferrous Sulfate [Iron (65 MG Elemental)] 325 mg PO DAILY@1200 #30 tab 08/16/18 [ Rx] Furosemide [Lasix] 40 mg PO DAILY #30 tab 08/16/18 [Rx] Losartan [Cozaar] 25 mg PO DAILY #30 tab 08/16/18 [Rx] Metoprolol Tartrate [Lopressor] 12.5 mg PO BID@0900,2100 #60 tab 08/16/18 [Rx] Potassium Chloride ER [K-Dur 20] 20 meq PO DAILY #30 tab 08/16/18 [Rx] Warfarin [Coumadin] 2.5 mg PO DAILY@1800 tab 08/16/18 [Rx] amLODIPine [Norvasc] 5 mg PO DAILY #30 tab 08/16/18 [Rx] hydrALAZINE HCL [Apresoline] 50 mg PO TID #90 tab 08/16/18 [Rx] Follow up Appointment(s)/Referral(s): Alex Sanchez MD [Primary Care Provider] - 3 Days Activity/Diet/Wound Care/Special Instructions: ECF? refused last time Diet: cardiac, diabetic Activity: as tolerated Discharge Disposition: HOME WITH HOME HEALTH SERVICES
[2018-08-16] MEDS ORDERED: MAGNESIUM SULFATE-D5W PMX 1 GM in DEXTROSE/WATER 1 100ML.BAG IVPB ONE (15:00)
[2018-08-16 16:42] LABS: Glucose,Whole Blood 104 mg/dL (75-99)
[2018-08-16] MEDS: WARFARIN 2.5 MG TAB PO SCH (17:43)
[2018-08-16 20:46] LABS: Glucose,Whole Blood 93 mg/dL (75-99)
--- NOTE | 2018-08-16 20:54 | PN ---
PROGRESS NOTE Patient is seen for followup for acute kidney injury. He is currently lying in bed. Patient denies any significant complaints. This morning blood pressure was 100/62, heart rate 89 per minute. He is afebrile. There are plans for discharge. Renal function has significantly improved, with creatinine staying at about 1.01 for the last 3 days. Patient has had good urine output. He is currently voiding in a urinal. On examination, blood pressure is 100/62, heart rate 89 per minute. Patient is afebrile. EXAMINATION OF THE HEART: S1, S2. EXAMINATION OF LUNGS: Bilateral breath sounds are heard. ABDOMEN: Soft, non-tender. Examination of lower extremities shows left BKA. Right leg is currently dressed. Labs show sodium 137, potassium 3.8, chloride 95, CO2 is 35, serum creatinine 1.01, BUN 21. ASSESSMENT: 1. Acute kidney injury, mainly cardiorenal, currently improved. Patient remains on Lasix, which has been switched to p.o. We can continue with the Cozaar as well. 2. Volume overload, currently significantly improved. 3. Hypertension, controlled. 4. Right lower extremity wound/cellulitis, maintained on antibiotics. 5. Chronic atrial fibrillation, maintained on anticoagulation. 6. History of dementia. PLAN: Patient is stable for discharge from nephrology standpoint. Monitor electrolytes and renal function as outpatient. MMODL / IJN: [id number] /
--- NOTE | 2018-08-16 22:08 | PN ---
PROGRESS NOTE DATE OF SERVICE: 08/16/2018 REASON FOR FOLLOWUP: Right leg wound. INTERVAL HISTORY: The patient is currently afebrile. He is breathing comfortably. Denies significant chest pain, shortness of breath or cough. No abdominal pain or any pain to the right lateral leg wound area. PHYSICAL EXAMINATION: Blood pressure is 124/65 with a pulse of 93, temperature 96.5. General description is an elderly male up in the chair in no distress. RESPIRATORY SYSTEM: Unlabored breathing. Clear to auscultation anteriorly. HEART: S1, S2. Regular rate and rhythm. ABDOMEN: Soft. No tenderness. Right leg wound is currently dressed up. No obvious drainage on the dressing. DIAGNOSTIC IMPRESSION AND PLAN: Patient with right leg wound with evidence of cellulitis. Wound is local care with an Aquacel Silver dressing to be changed every 48 hours. There is no need for any systemic antibiotic therapy. Continue with supportive care. MMODL / IJN: [id number] /
[2018-08-17] MEDS: SERTRALINE 50 MG TAB PO SCH (00:49)
[2018-08-17] MEDS: LEVOTHYROXINE 25 MCG TAB PO SCH (06:27)
[2018-08-17 07:10] VITALS: BP 136/75; PULSE 103; RESP 18; TEMP 97.6
[2018-08-17 07:30] LABS: Glucose,Whole Blood 82 mg/dL (75-99)
[2018-08-17] MEDS: INSULIN ASPART 100 UNIT/ML 1 ML 10 ML VIAL SQ SCH (07:37)
[2018-08-17] MEDS: hydrALAZINE HCL 50 MG TAB PO SCH (07:49)
[2018-08-17] MEDS: NITROGLYCERIN OINT 1 INCH/GM PACKET TOPICAL SCH (07:49)
[2018-08-17] MEDS: SENNOSIDES 8.6 MG TAB PO SCH (07:49)
[2018-08-17] MEDS: ASPIRIN 81 MG PO SCH (07:49)
[2018-08-17] MEDS: LOSARTAN 25 MG TAB PO SCH (07:49)
[2018-08-17] MEDS: METOPROLOL TARTRATE 12.5 MG TAB PO SCH (07:49)
[2018-08-17] MEDS: SUCRALFATE 1 GM TAB PO SCH (07:49)
[2018-08-17] MEDS: PANTOPRAZOLE 40 MG TABLET PO SCH (07:49)
[2018-08-17] MEDS: amLODIPine 5 MG TAB PO SCH (07:50)
[2018-08-17] MEDS ORDERED: FUROSEMIDE 40 MG TAB PO SCH (09:00)
[2018-08-17] MEDS ORDERED: HYDROmorphone 4 MG TABLET PO PRN (10:56)
--- NOTE | 2018-08-17 11:02 | P.PN ---
Subjective Progress Note Date: 08/17/18 This is a 83-year-old male with a recent prolonged hospitalization earlier in July for sepsis with possible ischemic colitis. Patient completed a course antibiotics as of yesterday with Ceftin and Flagyl. Her patient's caregivers patient has been more short of breath especially with activity. They 've noted significant right lower extremity edema and edema in the back as well. Patient also started complaining of abdominal pain. No nausea or vomiting. Decreased appetite. Having small bowel movements and constipation. Patient was brought into the emergency room for further evaluation and treatment for congestive heart failure exacerbation. BNP was 84,500. Chest x- ray reports to correlate for CHF with interstitial pulmonary edema and mass like area of opacity in the right mid lung. Patient started on IV Lasix. Also note her caregivers that Lasix had been decreased from 40 mg daily down to 20 mg daily. Patient did have some acute kidney injury on his previous hospitalization in Lasix dose was adjusted. Patient also has a known history of chronic atrial fibrillation in which she is anticoagulated with Coumadin, COPD, diabetes mellitus, GERD, hyperlipidemia, hypertension, myocardial infarction, obstructive sleep apnea, congestive heart failure with an EF of 45- 50%. On admission patient also had elevated lactic acid of 3.4 troponin elevated at 0.085 creatinine 1.46. Pulmonary, cardiology and surgical consults have been placed. Patient has had abdominal pain in the center of his abdomen similar to his last admission. Patient is hard of hearing and most of history was obtained from the caregivers. On 08/10/2018 patient is currently resting comfortably in bed. At this time patient denies chest pain or shortness of breath. Patient denies any urinary frequency or burning. Patient denies nausea vomiting diarrhea 08/11/2018 patient resting comfortably. Patient awakes easily. No complaints of pain. He's had decrease in his weight from 87.2 kg to 85.5 kg. Remains on the IV Lasix. Creatinine has decreased from 1.56-1.39 INR 1.8. 08/12/2018 patient remains on IV Lasix. Weight has decreased from 85.5-84 kg. Patient reported left lower rib pain during the evening improved with IV Dilaudid. Patient also has been having cardiac pauses up to 3 seconds. Toprol all had been decreased to 25 mg twice a day. Cardiology has been made aware of continue his cardiac pauses. Patient is also having some dry skin and itching near the IV site. Eucerin lotion has been ordered. Potassium 3.1. Hemoglobin down to 10.5. INR 1.7 creatinine decreased from 1.39-1.33 08/15/2018 patient remains on IV Lasix. Weight has decreased from 81.1 kg down to 79 kg. Chest x-ray showing bilateral lung infiltrates worsening on the left cannot exclude underlying mass. Pulmonary service is following. Patient has had no further cardiac causes. At this time surgical service is holding off on any surgery. Abdominal hernia showing improvement. Patient denies any abdominal pain denies any nausea or vomiting. Reports having bowel movements. Still having some shortness of breath especially with activity. 08/16/2018 patient is medically stable for discharge. She has been cleared by consulting physicians for discharge. Cardiology switch her over to oral Lasix. Case discussed with cardiology this morning. They have cleared him for discharge. Weight continued to decrease. Patient was found to have iron deficiency anemia and started on iron supplement during this admission. Cardiology is adjusted blood pressure medications. They have added Norvasc 5 mg daily Lasix dose adjusted to 40 mg daily hydralazine was increased to 50 mg 3 times a day Cozaar added at 25 mg daily and metoprolol decreased to 12.5 twice a day due to some cardiac pauses. INR is therapeutic at discharge. Patient seen by surgical service regarding inguinal hernia. It was reduced during his hospitalization. There was discussion about possible surgical intervention. However, patient is no longer having any pain or discomfort in that area. As well as patient was evaluated by cardiology and felt that he was not a candidate for any surgical intervention. Patient's symptoms have improved. He was seen by physical therapy and they had initially recommended ECF placement. However patient is adamant that he'll be discharged home. He' ll be sent home with home care and physical therapy. He does have assistance at home. On 08/17/2018 patient descending to 80s while on room air. Patient does require home O2. Patient does have right home today. Patient is still eager to go home. At this time patient denies chest pain or shortness breath. Patient denies any urinary burning or frequency. Patient denies nausea vomiting or diarrhea. Objective - Vital Signs Vital signs: Vital Signs Temp 97.6 F 08/17/18 07:00 Pulse 103 H 08/17/18 07:00 Resp 18 10/10/18 07:00 BP 136/75 08/17/18 07:00 Pulse Ox 88 L 08/17/18 09:31 Intake & Output 08/16/18 08/17/18 08/17/18 18:59 06:59 18:59 Intake Total 440 240 Output Total 700 350 Balance -260 -110 Weight 78.5 kg Intake: Oral 440 240 Output: Urine 700 350 Other: Voiding Method Urinal Urinal # Bowel Movements 1 - Exam Head normocephalic Neck supple Lungs diminished at bases bilaterally Heart regular rate and rhythm S1-S2, no rub or gallop Abdomen is soft nontender nondistended positive bowel sounds no hepatosplenomegaly Extremities +2 edema right lower extremity fluid blister that has opened on right tibia. Right below the knee amputation Neuro alert and orientated to 3 hard of hearing - Labs CBC & Chem 7: 08/16/18 06:36 08/16/18 06:36 Labs: Abnormal Lab Results - Last 24 Hours (Table) 08/16/18 08/16/18 Range/Units 11:59 16:40 POC Glucose (mg/dL) 109 H 104 H (75-99) mg/dL Assessment and Plan Assessment: 1. Acute systolic CHF exacerbation with Shortness of breath with lower extremity edema. Echo shows an EF of 20-25% moderate aortic stenosis severe mitral regurgitation severe trace tricuspid regurgitation and severe pulmonary hypertension. Treated with IV Lasix switched over to oral Lasix. Patient is requiring home O2. Patient will be DC'd with home oxygen. 2. Abdominal pain with recent admission with sepsis and colitis. patient completed antibiotic course 3. Acute on chronic kidney injury, stage III: Nephrology following. Acute kidney injury likely a component of cardiorenal syndrome. 4. Elevated lactic acid level on admission 5. Chronic atrial fibrillation anticoagulated. INR 2.3. Continue Coumadin 6. Elevated troponin : Likely due to acute renal failure. Patient evaluated by cardiology 7. Severe protein calorie malnutrition: Add Glucerna shakes 8. Diet-controlled diabetes mellitus type 2 ,A1c 6.0. Patient has not required any insulin during this admission 9. pseudotumors within the right lung previous is noted on previous CAT scan and chest x-rays. Pulmonary service following 10. Hypothyroidism continue Synthroid 11. Hypomagnesemia 12. Right inguinal hernia that was reduced by surgical service. At this time no surgical intervention is planned per surgical service. Also, patient is not cleared by cardiology for any surgical intervention at this time 13. Right tibia wound from an open blister. Patient seen by infectious disease. They are recommending local wound care with Aquacel Silver 14. Hypokalemia patient receiving potassium supplement 15. Iron deficiency Anemia: Iron low at 33. Start ferrous sulfate 325 mg daily 16. Cardiac pauses: Resolved. Cardiology decreased metoprolol dose further down to 12.5 mg twice a day 17. Episode of nonsustained ventricle tachycardia. Resolved I performed an examination of the patient and discussed their management with the Nurse Practitioner. I have reviewed the Nurse Practitioner's notes and agree with the documented findings and plan of care
[2018-08-17 12:04] LABS: Anisocytosis Slight; Basophils % (A) 0 %; Eosinophils # (A) 0.1 k/uL (0-0.7); Eosinophils % (A) 1 %; HCT 34.4 % (39.0-53.0); HGB 11.1 gm/dL (13.0-17.5); Hypochromasia Slight; Lymphocytes # (A) 0.9 k/uL (1.0-4.8); Lymphocytes % (A) 18 %; MCH 28.3 pg (25.0-35.0); MCHC 32.3 g/dL (31.0-37.0); MCV 87.6 fL (80.0-100.0); Mean Platelet Volume 7.9; Monocytes # (A) 0.4 k/uL (0-1.0); Monocytes % (A) 7 %; Neutrophils # (A) 3.5 k/uL (1.3-7.7); Neutrophils % (A) 72 %; Platelet Count 160 k/uL (150-450); RBC 3.92 m/uL (4.30-5.90); RDW 18.5 % (11.5-15.5); WBC 4.9 k/uL (3.8-10.6)
--- NOTE | 2018-08-17 12:04 | P.PN ---
Subjective Progress Note Date: 08/17/18 Principal diagnosis: Code abdominal pain, incarcerated right inguinal hernia, dyspnea, pleural effusions, acute CHF exacerbation This is a 83-year-old white male patient who was brought to the emergency department by a family member for complaint of abdominal pain, shortness of breath related to increased pain. Abdominal pain is in the right lower quadrant. Patient was recently in the hospital with lower abdominal pain, with lactic acidosis. CT of the abdomen showed prominent fluid within mildly thickened mid to lower abdominal small bowel loops, patient was treated for enterocolitis with Rocephin and Flagyl, was sent home on Cipro and Flagyl at discharge. During that admission patient also had abnormal LFTs with dilated gallbladder, ultrasound of the gallbladder showed large gallbladder with mild wall thickening and pericolic cystic fluid consistent with cholecystitis, no gallstones. He was medically treated, improved, and discharged home on 2017. C. diff was negative. 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 Chest x-ray was completed in the emergency department showed interstitial pulmonary edema, masslike areas of opacity at the midlung levels representing pseudotumors the previously seen on CAT scans and chest x-rays. CT of the abdomen and pelvis with no bowel obstruction or pneumoperitoneum. It showed interval development of right inguinal hernia, possible incarceration. She was seen by surgery, and the right inguinal hernia was manually reduced. There were bilateral pleural effusions seen on the CT of abdomen and pelvis. Lab work was reviewed, no leukocytosis, WBC is 5.5, hemoglobin is 11.2, INR is 2.7, and 39, potassium is 4.1, CO2 is 21, BUN is 32 and creatinine is 1.46. Patient was started on IV Lasix 40 mg every 12 hours, he denies chest pain at this time , currently in no acute distress, she is on 4 L per nasal cannula and his pulse ox was 100%, afebrile, and this afternoon axillary temperatures of 95.4, not sure how accurate these temperatures are, his skin is dry and warm. Blood pressures are 132/88, patient is urinating per urinal. Lung sounds are diminished bilateral bases, patient has a congested cough. There is 1+ pitting edema in his right lower extremity, and there are open wounds on his right lynch area with small amount of yellow drainage. This is covered with a dressing. On 08/11/2018 I'm seeing this patient for a follow-up. He was in consultation yesterday. He is an elderly male patient who came with abdominal pain that was attributed to an incarcerated right inguinal hernia that was reduced by general surgery. The patient is not having any significant abdominal pain today. He has however multiple medical problems and comorbidities that were listed earlier. He is resting comfortably in bed. He is afebrile. No nausea vomiting or emesis. No chest pain. He is known to have coronary artery disease , congestion heart failure, CHF with ejection fraction 45-50%, chronic atrial fibrillation, previous history of BKA of the left lower extremity, dementia, hypertension, BPH and previous history of pseudotumors in his lungs the largest one being on the right and he has had previous admissions to the intensive care unit it was taken care of and the patient was discharged successfully. Currently, the patient is resting comfortably in bed. He is on Lasix to optimize volume status and is receiving 40 mg of IV Lasix every 12 hours. He has been on long-term articulation with warfarin with an INR of 1.8. Renal function is stable with a creatinine of 1.39. White cell count is not elevated. On 08/12/2018 patient seen in follow-up on selective care unit. She is sitting up in a chair, patient is extremely hard of hearing, and difficult to communicate with, eyes any acute distress, although he still has some discomfort in the groin area, states in the private area. No abdominal discomfort. Patient did have a bowel movement yesterday. He is tolerating oral intake, no nausea or vomiting, 3 days per nasal cannula, his pulse ox is 93 %, he is afebrile, respirations are nonlabored, lung sounds are positive for bilateral lower base crackles. Patient is being diuresed, remains on Lasix 40 mg every 12 hours. Denies any chest pain. Remains in A. fib. Rate controlled. Obtain repeat chest x-ray tomorrow, but surgery on August for repair of right inguinal herniam, once optimized medically from pulmonary and cardiology standpoint. On 08/14/2018 patient seen in follow-up on selective care unit. He is awake and alert, denies any acute distress, denies any difficulty breathing, denies any inguinal discomfort at the moment. Remains on 2 L per nasal cannula his pulse ox is 99%, he is afebrile, hemodynamically stable. Cultures are negative , patient is maintaining negative fluid balance, he continues to diurese. Lung sounds are clear, diminished at the bases. His labs have been reviewed, WBC is 4.1, hemoglobin is 10.5, INR is 2.0, electrolytes and renal profile are essentially unremarkable, with the exception of CO2 which is at 35. Right lower extremity edema is improving, open areas on the right anterior lynch area covered with a dressing. On 08/15/2018 patient seen in follow-up on selective care unit. Sitting up in the chair, in no acute distress, pulse oximetry liters per nasal cannula was 97% , he is afebrile, denies any shortness of breath or chest pain. Edema in the right lower extremity is improving. He is wearing his prosthesis on the left leg. His INR is therapeutic today, 2.1. No leukocytosis, hemoglobin is 11.0, sodium is 139, potassium is 3.5, chloride is 97, CO2 is 36, B1 is 21 creatinine is 1.09. Patient is passing bowel movements, denies any abdominal or inguinal discomfort today. Today's chest x-ray has been reviewed and shows persistence of bilateral infiltrates, however better aeration noted at the bases. Likely patient denies any worsening shortness of breath, or chest pain. Continues to diurese, he is in -1473 fluid balance On 08/16/2018 patient seen in follow-up on selective care unit. He states his more short of breath today, sitting up in the chair, as any chest pain, lung sounds are positive for coarse crackles over bilateral posterior lower lobes. TMs to diurese, he is -1420 ML fluid balance. He is down another 0.7 kg in the last 24 hours. His edema in his right upper extremity is improving. Patient had a bowel movement yesterday, he denies any abdominal or inguinal discomfort. Patient is considered to be high surgical risk view of his severely impaired left ventricular systolic function, with an EF of 20-25%, heart disease, acute on chronic congestive heart failure, and surgical intervention is on hold right now. On 08/17/2018 patient seen in follow-up on medical surgical floor. He got up with a walker and to person assist from physical therapy. He has severe generalized weakness, becomes dyspneic with any exertion. Denies any chest pain. Currently on 2 L per nasal cannula his pulse ox is 95%, did desaturate on room air to 88%, and with exercise down to 82%, and patient does qualify for home oxygen. I'm status has improved, he is in negative fluid balance -1420 and her last 24 hours. Lung sounds are clear, diminished at the bases. Patient is on oral Lasix. No new labs the chest x-rays today. Cardiology has cleared him for discharge, no surgical intervention for the right inguinal hernia, denies any abdominal pain denies any groin pain. Abdomen is soft and nontender, he did have a bowel movement today. Patient's stepson is bedside, patient is refusing placement to the subacute facility, is adamant on returning home. Patient lives by himself, and his stepson is trying to arrange 24-hour coverage, is having difficulty with this issue. Patient is too debilitated to return home, and spend any time alone. Objective - Vital Signs Vital signs: Vital Signs Temp 97.6 F 08/17/18 07:00 Pulse 103 H 08/17/18 07:00 Resp 18 08/17/18 07:00 BP 136/75 08/17/18 07:00 Pulse Ox 88 L 08/17/18 09:31 Intake & Output 08/16/18 08/17/18 08/17/18 18:59 06:59 18:59 Intake Total 440 240 Output Total 700 350 Balance -260 -110 Weight 78.5 kg Intake: Oral 440 240 Output: Urine 700 350 Other: Voiding Method Urinal Urinal # Bowel Movements 1 - Exam GENERAL EXAM: Alert, pleasant, 83-year-old white male, very hard of hearing comfortable in no apparent distress. HEAD: Normocephalic/atraumatic. EYES: Normal reaction of pupils, equal size. Conjunctiva pink, sclera white. NOSE: Clear with pink turbinates. THROAT: No erythema or exudates. NECK: No masses, no JVD, no thyroid enlargement, no adenopathy. CHEST: No chest wall deformity. Symmetrical expansion. Diminished breath sounds at bases, and has a congested cough LUNGS: Equal air entry with diminished breath sounds at the bases, coarse crackles over bilateral lower lobes. Congestive cough, diminished breath sounds CVS: Irregular rate and rhythm, normal S1 and S2, no gallops, no murmurs, no rubs ABDOMEN: Soft, nontender. No hepatosplenomegaly, normal bowel sounds, no guarding or rigidity. EXTREMITIES: No clubbing, no cyanosis, 2+ pulses and upper and lower extremities. Right lower extremity edema, there is open weeping wound on his right anterior lynch area, with yellow drainage MUSCULOSKELETAL: Muscle strength and tone normal. SPINE: No scoliosis or deformity SKIN: No rashes CENTRAL NERVOUS SYSTEM: Alert and oriented -1. No focal deficits, tone is normal in all 4 extremities. - Labs CBC & Chem 7: 08/16/18 06:36 08/16/18 06:36 Labs: Abnormal Lab Results - Last 24 Hours (Table) 08/16/18 08/16/18 Range/Units 11:59 16:40 POC Glucose (mg/dL) 109 H 104 H (75-99) mg/dL Assessment and Plan Plan: Assessment: #1. Acute abdominal pain, incarcerated right inguinal hernia. #2. Lactic acidosis #3. Dyspnea related to bilateral pleural effusions, acute CHF exacerbation with her previously impaired systolic dysfunction . #4. Recent hospitalization for abdominal pain, colitis, and sepsis. #5. Acute kidney injury, is renal function was impaired during his last hospitalization, patient was discharged home, creatinine of 1.63, current creatinine has improved, they have 1.12. #6. Chronic atrial fibrillation on Coumadin, with INR of 1.8 #7. Elevated troponins #8. Pseudotumors within the right lung previously noted on previous CAT scans and chest x-rays #9. Hypothyroidism on thyroid mode replacement #10. 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 Right lower leg open wound . #12. History of dementia #13. Osteoarthritis #14. BPH #15. General medical debility, and impaired performance and functional status Plan: Patient has severe generalized weakness, he is dyspneic with any exertion, but no acute distress, no chest pain. Vital signs are stable. Patient does qualify for home oxygen. Adamant on returning home, however in view of patient' s severe generalized medical debility, multiple medical issues patient will need [id number] supervision at home. We will speak to discharge planning, and patient's stepson is trying to arrange coverage at home. I performed a history & physical examination of the patient and discussed their management with my nurse practitioner, Henny Walsh. I reviewed the nurse practitioner's note and agree with the documented findings and plan of care. Lung sounds are diminished, with bibasilar crackles. The findings and the impression was discussed with the patient. I attest to the documentation by the nurse practitioner. Time with Patient: Less than 30
[2018-08-17 12:09] LABS: INR 2.1 (<1.2); Prothrombin Time 18.8 sec (9.0-12.0)
[2018-08-17 12:10] LABS: Glucose,Whole Blood 96 mg/dL (75-99)
[2018-08-17 12:25] LABS: Albumin 2.8 g/dL (3.5-5.0); Magnesium 1.9 mg/dL (1.6-2.3); Total Bilirubin 1.1 mg/dL (0.2-1.3); Total Protein 6.5 g/dL (6.3-8.2)
--- NOTE | 2018-08-17 22:34 | PN ---
PROGRESS NOTE HISTORY: The patient is seen for followup for acute kidney injury. Renal function has significantly improved. The patient is doing well. He is actually getting discharged today. His creatinine is down to 1.0. The patient is off of IV fluids. He is maintained on oral Lasix. EXAMINATION: This morning, blood pressure was 136/75, heart rate 103 per minute. He is afebrile. Examination of the heart S1, S2. Examination lungs bilateral breath sounds are heard. Abdomen is soft, nontender. Exam of lower extremities shows left BKA. Patient's right leg is currently wrapped. LABS: Sodium 137, potassium 4.0, serum creatinine 1.0, hemoglobin 11.1 g/dL. ASSESSMENT: 1. Acute kidney injury, cardiorenal, currently improved. Patient's diuretic of p.o. Lasix is doing well. 2. Volume overload, currently resolved. 3. Right lower extremity cellulitis and wounds, maintained on antibiotics. 4. Chronic atrial fibrillation, on anticoagulation. 5. History of dementia. 6. Hearing loss. PLAN: Continue current dose of Lasix. Monitor renal profile periodically as outpatient. MMODL / IJN: [id number] /
== END 2018-08-17 13:28 | disposition home health service (06) | DRG 291 ==
LOC: EC 10:19 → 6SEL 12:25 → 4MS4W 08-16 20:59
PROVIDERS: ADMIT Internal Medicine; ATTEND Internal Medicine
DX: I13.0 Hypertensive heart and chronic kidney disease with heart failure and stage 1 through stage 4 chronic kidney disease, or unspecified chronic kidney disease (principal); E43 Unspecified severe protein-calorie malnutrition; I50.23 Acute on chronic systolic (congestive) heart failure; J96.01 Acute respiratory failure with hypoxia; E87.2 Acidosis; K40.30 Unilateral inguinal hernia, with obstruction, without gangrene, not specified as recurrent; L03.115 Cellulitis of right lower limb; L03.116 Cellulitis of left lower limb; N17.9 Acute kidney failure, unspecified; I47.2 Ventricular tachycardia; D50.9 Iron deficiency anemia, unspecified; E03.9 Hypothyroidism, unspecified; I27.20 Pulmonary hypertension, unspecified; J44.9 Chronic obstructive pulmonary disease, unspecified; I49.5 Sick sinus syndrome; E11.22 Type 2 diabetes mellitus with diabetic chronic kidney disease; E78.5 Hyperlipidemia, unspecified; E83.42 Hypomagnesemia; E87.6 Hypokalemia; F03.90 Unspecified dementia, unspecified severity, without behavioral disturbance, psychotic disturbance, mood disturbance, and anxiety; S81.801A Unspecified open wound, right lower leg, initial encounter; F32.9 Major depressive disorder, single episode, unspecified; F41.9 Anxiety disorder, unspecified; G47.33 Obstructive sleep apnea (adult) (pediatric); H91.90 Unspecified hearing loss, unspecified ear; I08.3 Combined rheumatic disorders of mitral, aortic and tricuspid valves; I25.10 Atherosclerotic heart disease of native coronary artery without angina pectoris; I25.2 Old myocardial infarction; I42.9 Cardiomyopathy, unspecified; I48.2 Chronic atrial fibrillation; K21.9 Gastro-esophageal reflux disease without esophagitis; K59.00 Constipation, unspecified; M19.90 Unspecified osteoarthritis, unspecified site; N18.3 Chronic kidney disease, stage 3 (moderate); N40.0 Benign prostatic hyperplasia without lower urinary tract symptoms; R77.9 Abnormality of plasma protein, unspecified; J98.9 Respiratory disorder, unspecified; Z79.01 Long term (current) use of anticoagulants; Z79.82 Long term (current) use of aspirin; Z79.899 Other long term (current) drug therapy; Z87.01 Personal history of pneumonia (recurrent); Z87.891 Personal history of nicotine dependence; Z89.512 Acquired absence of left leg below knee; Z96.653 Presence of artificial knee joint, bilateral; Z97.14 Presence of artificial left leg (complete) (partial); Z86.14 Personal history of Methicillin resistant Staphylococcus aureus infection; Z66 Do not resuscitate
CPT/HCPCS: 36415; 71045; 71046; 74176; 80053; 81001; 82550; 82553; 82728; 83036; 83540; 83550; 83605; 83735; 83880; 84484; 85025; 85610; 85730; 87040; 93005; 93306; 94760; 96374; 99285

== ENCOUNTER 2018-09-17 11:29 | Inpatient (IN) | payer MEDICARE, BC ==
[2018-09-17] MEDS ORDERED: SODIUM CHLORIDE 0.9% 1,000 ML IV STA (11:49)
[2018-09-17 12:26] LABS: Anisocytosis Slight; Basophils % (A) 1 %; Eosinophils # (A) 0.2 k/uL (0-0.7); Eosinophils % (A) 5 %; HCT 31.2 % (39.0-53.0); HGB 10.1 gm/dL (13.0-17.5); Hypochromasia Moderate; Lymphocytes # (A) 1.1 k/uL (1.0-4.8); Lymphocytes % (A) 25 %; MCH 29.3 pg (25.0-35.0); MCHC 32.5 g/dL (31.0-37.0); MCV 90.1 fL (80.0-100.0); Mean Platelet Volume 8.9; Monocytes # (A) 0.2 k/uL (0-1.0); Monocytes % (A) 5 %; Neutrophils # (A) 2.7 k/uL (1.3-7.7); Neutrophils % (A) 62 %; Platelet Count 143 k/uL (150-450); Poikilocytosis Slight; RBC 3.46 m/uL (4.30-5.90); RDW 18.1 % (11.5-15.5); WBC 4.3 k/uL (3.8-10.6)
[2018-09-17 12:27] LABS: ALT 30 U/L (21-72); AST 21 U/L (17-59); Alkaline Phosphatase 83 U/L (38-126); Amylase <30 U/L (30-110); Anion Gap 7 mmol/L; Blood Urea Nitrogen 25 mg/dL (9-20); Calcium 8.8 mg/dL (8.4-10.2); Carbon Dioxide 25 mmol/L (22-30); Chloride 105 mmol/L (98-107); Glucose 89 mg/dL (74-99); Lipase 32 U/L (23-300); Potassium 4.2 mmol/L (3.5-5.1); Sodium 137 mmol/L (137-145); Total Bilirubin 0.8 mg/dL (0.2-1.3); Total Protein 6.8 g/dL (6.3-8.2)
--- NOTE | 2018-09-17 12:28 | ED ---
General Adult HPI - General Chief complaint: Abdominal Pain Stated complaint: ABDOMINAL PAIN Time Seen by Provider: 09/17/18 11:35 Source: patient, family, RN notes reviewed Mode of arrival: wheelchair Limitations: physical limitation - History of Present Illness Initial comments: Patient is an 83-year-old male presented to the emergency room today with multiple complaints. Patient does admit that he's had a cough and congestion, shortness of breath along with abdominal pain over the past year. Patient does admit that he lives at home by himself. He states that he feels that it's time for him that he should move into a assisted. Patient states that he has had some abdominal pain. He may be some constipation. Patient also admits to dizziness or lightheadedness at times. States worse when he is up and ambulating. States he usually feels this in the morning. Patient denies any complaints symptoms. Patient denies any recent fever, chills, shortness of breath, chest pain, back pain, nausea or vomiting, numbness or tingling, dysuria or hematuria, diarrhea, headaches or visual changes, or any other complaints. - Related Data Home Medications Medication Instructions Recorded Confirmed Aspirin 81 mg PO DAILY 11/05/17 08/09/18 Levothyroxine Sodium 25 mcg PO DAILY 07/21/18 08/09/18 Sertraline HCl [Zoloft] 50 mg PO HS 07/21/18 08/09/18 Sucralfate [Carafate] 1 gm PO QID 07/21/18 08/09/18 Medihoney 1 applic TOPICAL DAILY PRN 08/09/18 08/09/18 Omeprazole 20 mg PO BID 08/09/18 08/09/18 Sennosides [Senna] 8.6 mg PO DAILY 08/09/18 08/09/18 Tetrahydrozoline 0.05% Ophth 1 drop BOTH EYES DAILY PRN 08/09/18 08/09/18 [Visine Eye Drops] Previous Rx's Medication Instructions Recorded Ferrous Sulfate [Iron (65 MG 325 mg PO DAILY@1200 #30 tab 08/16/18 Elemental)] Furosemide [Lasix] 40 mg PO DAILY #30 tab 08/16/18 Losartan [Cozaar] 25 mg PO DAILY #30 tab 08/16/18 Metoprolol Tartrate [Lopressor] 12.5 mg PO BID@0900,2100 #60 tab 08/16/18 Potassium Chloride ER [K-Dur 20] 20 meq PO DAILY #30 tab 08/16/18 Warfarin [Coumadin] 2.5 mg PO DAILY@1800 tab 08/16/18 amLODIPine [Norvasc] 5 mg PO DAILY #30 tab 08/16/18 hydrALAZINE HCL [Apresoline] 50 mg PO TID #90 tab 08/16/18 Allergies Allergy/AdvReac Type Severity Reaction Status Date / Time No Known Allergies Allergy Verified 09/17/18 11:34 Review of Systems ROS Statement: Those systems with pertinent positive or pertinent negative responses have been documented in the HPI. ROS Other: All systems not noted in ROS Statement are negative. Past Medical History Past Medical History: Atrial Fibrillation, Coronary Artery Disease (CAD), Chest Pain / Angina, Heart Failure, COPD, Diabetes Mellitus, GERD/Reflux, Hearing Disorder / Deafness, Hyperlipidemia, Hypertension, Myocardial Infarction (CT), Osteoarthritis (OA), Pneumonia, Prostate Disorder, Sleep Apnea/CPAP/BIPAP, Thyroid Disorder Additional Past Medical History / Comment(s): Ejection fraction 45-50%, moderate to severe aortic valve sclerosis, mild AF, mild AR, moderate concentric left ventricular hypertrophy/hypertensive heart disease, dementia, CINTHIA, hypothyroidism, BPH, very [place] (doesn't have hearing aides - communicate through writing when possible), BKA r/t infection/wound. 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 Eye: Pupils are equal, round and reactive to light. Extra-ocular movements are intact. No nystagmus. There is normal conjunctiva bilaterally. No signs of icterus. Ears, nose, mouth and throat: There are moist mucous membranes and no oral lesions. Neck: The neck is supple, there is no tenderness or JVD. Cardiovascular: There is a regular rate and rhythm. No murmur, rub or gallop is appreciated. Respiratory: Lungs are clear to auscultation, respirations are non-labored, breath sounds are equal. No wheezes, stridor, rales, or rhonchi. Gastrointestinal: Soft, non-distended, non-tender abdomen without masses or organomegaly noted. There is no rebound or guarding present. No CVA tenderness. Musculoskeletal: Normal ROM, no tenderness. Sensation intact. Strength 5/5. Pulses equal bilaterally 2+. Neurological: A&O x 3. CN II-XII intact, There are no obvious motor or sensory deficits. Coordination appears grossly intact. Speech is normal. Skin: Skin is warm and dry and no rashes or lesions are noted. Psychiatric: Cooperative, appropriate mood & affect, normal judgment. Limitations: physical limitation Course Vital Signs 09/17/18 09/17/18 09/17/18 11:31 12:58 13:50 Temperature 97.6 F Pulse Rate 65 73 75 Respiratory 20 18 14 Rate Blood Pressure 114/67 132/82 118/70 O2 Sat by Pulse 99 95 99 Oximetry Medical Decision Making - Medical Decision Making Patient's labs been reviewed. Does show INR 3.1. Hemoglobin stable. Previous. Patient BNP greater than 30,000. Patient has had a cough that is complained about. Does admit to some dizziness lightheadedness. Bone was elevated at 0.053. This compared previous labs and shows similar findings. This felt to be secondary to CHF. Patient is therapeutic at 3.1 with his INR and we will hold heparin. Patient given Lasix or the emergency room. Case discussed with attending physician Dr. Villa who will admit the patient. - Lab Data Result diagrams: 09/17/18 12:03 09/17/18 12:03 Lab Results 09/17/18 09/17/18 09/17/18 Range/Units 12:03 12:03 12:03 WBC 4.3 (3.8-10.6) k/uL RBC 3.46 L (4.30-5.90) m/uL Hgb 10.1 L (13.0-17.5) gm/dL Hct 31.2 L (39.0-53.0) % MCV 90.1 (80.0-100.0) fL MCH 29.3 (25.0-35.0) pg MCHC 32.5 (31.0-37.0) g/dL RDW 18.1 H (11.5-15.5) % Plt Count 143 L (150-450) k/uL Neutrophils % 62 % Lymphocytes % 25 % Monocytes % 5 % Eosinophils % 5 % Basophils % 1 % Neutrophils # 2.7 (1.3-7.7) k/uL Lymphocytes # 1.1 (1.0-4.8) k/uL Monocytes # 0.2 (0-1.0) k/uL Eosinophils # 0.2 (0-0.7) k/uL Basophils # 0.0 (0-0.2) k/uL Hypochromasia Moderate Poikilocytosis Slight Anisocytosis Slight PT (9.0-12.0) sec INR (<1.2) APTT (22.0-30.0) sec Sodium 137 (137-145) mmol/L Potassium 4.2 (3.5-5.1) mmol/L Chloride 105 (98-107) mmol/L Carbon Dioxide 25 (22-30) mmol/L Anion Gap 7 mmol/L BUN 25 H (9-20) mg/dL Creatinine 0.93 (0.66-1.25) mg/dL Est GFR (CKD-EPI)AfAm 89 (>60 ml/min/1.73 sqM) Est GFR (CKD-EPI)NonAf 77 (>60 ml/min/1.73 sqM) Glucose 89 (74-99) mg/dL Calcium 8.8 (8.4-10.2) mg/dL Total Bilirubin 0.8 (0.2-1.3) mg/dL AST 21 (17-59) U/L ALT 30 (21-72) U/L Alkaline Phosphatase 83 (38-126) U/L Total Creatine Kinase 29 L (55-170) U/L CK-MB (CK-2) 2.0 (0.0-2.4) ng/mL CK-MB (CK-2) Rel Index 6.9 Troponin I 0.053 H* (0.000-0.034) ng/mL NT-Pro-B Natriuret Pep pg/mL Total Protein 6.8 (6.3-8.2) g/dL Albumin 3.0 L (3.5-5.0) g/dL Amylase <30 L (30-110) U/L Lipase 32 (23-300) U/L Urine Color Urine Appearance (Clear) Urine pH (5.0-8.0) Ur Specific [place] (1.001-1.035) Urine Protein (Negative) Urine Glucose (UA) (Negative) Urine Ketones (Negative) Urine Blood (Negative) Urine Nitrite (Negative) Urine Bilirubin (Negative) Urine Urobilinogen (<2.0) mg/dL Ur Leukocyte Esterase (Negative) 09/17/18 09/17/18 09/17/18 Range/Units 12:03 12:03 12:25 WBC (3.8-10.6) k/uL RBC (4.30-5.90) m/uL Hgb (13.0-17.5) gm/dL Hct (39.0-53.0) % MCV (80.0-100.0) fL MCH (25.0-35.0) pg MCHC (31.0-37.0) g/dL RDW (11.5-15.5) % Plt Count (150-450) k/uL Neutrophils % % Lymphocytes % % Monocytes % % Eosinophils % % Basophils % % Neutrophils # (1.3-7.7) k/uL Lymphocytes # (1.0-4.8) k/uL Monocytes # (0-1.0) k/uL Eosinophils # (0-0.7) k/uL Basophils # (0-0.2) k/uL Hypochromasia Poikilocytosis Anisocytosis PT 27.9 H (9.0-12.0) sec INR 3.1 H (<1.2) APTT 34.3 H (22.0-30.0) sec Sodium (137-145) mmol/L Potassium (3.5-5.1) mmol/L Chloride (98-107) mmol/L Carbon Dioxide (22-30) mmol/L Anion Gap mmol/L BUN (9-20) mg/dL Creatinine (0.66-1.25) mg/dL Est GFR (CKD-EPI)AfAm (>60 ml/min/1.73 sqM) Est GFR (CKD-EPI)NonAf (>60 ml/min/1.73 sqM) Glucose (74-99) mg/dL Calcium (8.4-10.2) mg/dL Total Bilirubin (0.2-1.3) mg/dL AST (17-59) U/L ALT (21-72) U/L Alkaline Phosphatase (38-126) U/L Total Creatine Kinase (55-170) U/L CK-MB (CK-2) (0.0-2.4) ng/mL CK-MB (CK-2) Rel Index Troponin I (0.000-0.034) ng/mL NT-Pro-B Natriuret Pep 40160 pg/mL Total Protein (6.3-8.2) g/dL Albumin (3.5-5.0) g/dL Amylase (30-110) U/L Lipase (23-300) U/L Urine Color Yellow Urine Appearance Clear (Clear) Urine pH 5.0 (5.0-8.0) Ur Specific [place] 1.007 (1.001-1.035) Urine Protein Negative (Negative) Urine Glucose (UA) Negative (Negative) Urine Ketones Negative (Negative) Urine Blood Negative (Negative) Urine Nitrite Negative (Negative) Urine Bilirubin Negative (Negative) Urine Urobilinogen <2.0 (<2.0) mg/dL Ur Leukocyte Esterase Negative (Negative) Disposition Clinical Impression: CHF exacerbation, Elevated troponin Disposition: ADMITTED IP TO THIS HOSP Condition: Stable Is patient prescribed a controlled substance at d/c from ED?: No Referrals: Alex Sanchez MD [Primary Care Provider] - 1-2 days Time of Disposition: 14:03
[2018-09-17 12:30] LABS: INR 3.1 (<1.2); Partial Thromboplastin Time 34.3 sec (22.0-30.0); Prothrombin Time 27.9 sec (9.0-12.0)
[2018-09-17 12:38] LABS: Appearance,Urine Clear (Clear); Bilirubin,Urine Negative (Negative); Blood,Urine Negative (Negative); Color,Urine Yellow; Glucose,Urine (UA) Negative (Negative); Ketones,Urine Negative (Negative); Leukocyte Esterase,Urine Negative (Negative); Nitrite,Urine Negative (Negative); Protein,Urine Negative (Negative); Specific Gravity,Urine 1.007 (1.001-1.035); Urobilinogen,Urine <2.0 mg/dL (<2.0)
[2018-09-17 12:54] LABS: Troponin I 0.053 ng/mL (0.000-0.034)
--- NOTE | 2018-09-17 12:57 | XR ---
EXAMINATION TYPE: XR KUB , 2 VIEWS DATE OF EXAM ORDERED: 09/17/2018 HISTORY: pain. COMPARISON: None. FINDINGS: The lung bases are clear. Within the abdomen, the abdominal gas pattern is nonspecific with nondistended air-filled loops of la rge and small bowel. There are vascular calcifications within the pelvis. IMPRESSION: NONSPECIFIC ABDOMINAL PICTURE. FOLLOW-UP CLINICALLY INDICATED WOULD BE SUGGESTED.
--- NOTE | 2018-09-17 12:59 | XR ---
EXAMINATION TYPE: XR chest 2V DATE OF EXAM: 09/17/2018 HISTORY: cough. REFERENCE: Previous study dated 08/15/2018. FINDINGS: There are bilateral shoulder prostheses in place. The heart is enlarged. There are bilateral infiltrates. These are improved slightly. Both CP angles a re blunted. IMPRESSION: 1. CARDIOMEGALY. 2. PERSISTENT BILATERAL INFILTRATES. 3. SMALL BILATERAL EFFUSIONS. IN LIGHT OF THE DURATION OF THESE INFILTRATES, A NONEMERGENT CT SCAN OF THE THORAX WOULD BE SUGGESTED .
[2018-09-17] MEDS ORDERED: FUROSEMIDE 10 MG/ML 4 ML VIAL IV STA (13:57)
[2018-09-17] MEDS ORDERED: SODIUM CHLORIDE 0.9% 1,000 ML IV ONE (14:15)
[2018-09-17] MEDS ORDERED: NITROGLYCERIN SL TABS 0.4 MG TAB SUBLINGUAL PRN (14:15)
[2018-09-17] MEDS ORDERED: ACETAMINOPHEN TAB 325 MG TAB PO PRN (14:52)
[2018-09-17] MEDS ORDERED: HYDROcodone/APAP 5-325MG 1 EACH TAB PO PRN (14:52)
[2018-09-17] MEDS ORDERED: NALOXONE 0.4 MG/ML 1 ML VIAL IV PRN (14:52)
--- NOTE | 2018-09-17 15:07 | P.HPIM ---
History of Present Illness H&P Date: 09/17/18 Chief Complaint: CHF exacerbation History is limited due to patient being hard of hearing. 83-year-old male with past medical history of hypertension, hypothyroidism, congestive heart failure presents to the ED for cough and shortness of breath. Patient reports feeling short of breath over the past month. Patient states that his breathing is worse in the morning and he feels "winded getting out of bed". Patient also complains of a cough, wet, unable to produce sputum. He also complains of right lower extremity swelling that gets better with elevation. Patient states he also lives alone. Patient would like some help finding placement as he believes that it is not safe for him to stay at home by himself. He denies any headaches, dizziness, nausea, vomiting, fever, chills, chest pain , palpitations, changes in urination. No changes in appetite or weight. Patient denies any numbness, tingling, weakness of the extremities. Patient reports constipation occasionally on ROS. Last bowel movement 3-4 days ago. Of note patient has a amputation of the left lower extremity. Patient states the cause of this was due to an infection that couldn't be treated with antibiotics in 2017. In the ED, CBC showed a hemoglobin of 10.1, hematocrit of 31.2 and a platelet count 143. INR was 3.1. CMP showed a BUNs of 25. Initial troponin was 0.053. Amylase and lipase was negative. Chest x-ray shows cardiomegaly, persistent bilateral infiltrates and small bilateral effusions. Patient is admitted for CHF exacerbation. Review of Systems All systems: negative Past Medical History Past Medical History: Atrial Fibrillation, Coronary Artery Disease (CAD), Chest Pain / Angina, Heart Failure, COPD, Diabetes Mellitus, GERD/Reflux, Hearing Disorder / Deafness, Hyperlipidemia, Hypertension, Myocardial Infarction (OR), Osteoarthritis (OA), Pneumonia, Prostate Disorder, Sleep Apnea/CPAP/BIPAP, Thyroid Disorder Additional Past Medical History / Comment(s): Ejection fraction 45-50%, moderate to severe aortic valve sclerosis, mild AF, mild AR, moderate concentric left ventricular hypertrophy/hypertensive heart disease, dementia, CINTHIA, hypothyroidism, BPH, very [place] (doesn't have hearing aides - communicate through writing when possible), BKA r/t infection/wound. 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 2016 Past Anesthesia/Blood Transfusion Reactions: No Reported Reaction Past Psychological History: Anxiety, Depression Smoking Status: Former smoker Past Alcohol Use History: None Reported Past Drug Use History: None Reported - Past Family History Father History Unknown: Yes Mother History Unknown: Yes Medications and Allergies Home Medications Medication Instructions Recorded Confirmed Type Aspirin 81 mg PO DAILY 11/05/17 08/09/18 History Levothyroxine Sodium 25 mcg PO DAILY 07/21/18 08/09/18 History Sertraline HCl [Zoloft] 50 mg PO HS 07/21/18 08/09/18 History Sucralfate [Carafate] 1 gm PO QID 07/21/18 08/09/18 History Medihoney 1 applic TOPICAL DAILY PRN 08/09/18 08/09/18 History Omeprazole 20 mg PO BID 08/09/18 08/09/18 History Sennosides [Senna] 8.6 mg PO DAILY 08/09/18 08/09/18 History Tetrahydrozoline 0.05% Ophth 1 drop BOTH EYES DAILY PRN 08/09/18 08/09/18 History [Visine Eye Drops] Ferrous Sulfate [Iron (65 MG 325 mg PO DAILY@1200 #30 tab 08/16/18 Rx Elemental)] Furosemide [Lasix] 40 mg PO DAILY #30 tab 08/16/18 Rx Losartan [Cozaar] 25 mg PO DAILY #30 tab 08/16/18 Rx Metoprolol Tartrate [Lopressor] 12.5 mg PO BID@0900,2100 #60 tab 08/16/18 Rx Potassium Chloride ER [K-Dur 20] 20 meq PO DAILY #30 tab 08/16/18 Rx Warfarin [Coumadin] 2.5 mg PO DAILY@1800 tab 08/16/18 Rx amLODIPine [Norvasc] 5 mg PO DAILY #30 tab 08/16/18 Rx hydrALAZINE HCL [Apresoline] 50 mg PO TID #90 tab 08/16/18 Rx Allergies Allergy/AdvReac Type Severity Reaction Status Date / Time No Known Allergies Allergy Verified 09/17/18 14:38 Physical Exam Vitals: Vital Signs Temp Pulse Resp BP Pulse Ox 09/17/18 13:50 75 14 118/70 99 09/17/18 12:58 73 18 132/82 95 09/17/18 11:31 97.6 F 65 20 114/67 99 Intake and Output 09/16/18 09/17/18 09/17/18 22:59 06:59 14:59 Other: Weight 72.575 kg General: [non toxic], [no distress], [appears at stated age] Derm: [warm], [dry] Head: [atraumatic], [normocephalic], [symmetric], [for dentition] Eyes: [EOMI], [no lid lag], [anicteric sclera] Mouth: [no lip lesion], [mucus membranes moist] Cardiovascular: [S1S2 reg], [systolic murmur] Lungs: [CTA bilateral], [no rhonchi, no rales] , [no accessory muscle use] Abdominal: [soft], [ nontender to palpation], [no guarding], [no appreciable organomegaly] Ext: [no gross muscle atrophy], [2+ pitting edema right lower extremity], [no contractures], [left lower extremity BKA] Neuro: [ CN II-XI grossly intact], [no focal neuro deficits] Psych: [Alert], [oriented], [appropriate affect] Results CBC & Chem 7: 09/17/18 12:03 09/17/18 12:03 Labs: Abnormal Lab Results - Last 24 Hours (Table) 09/17/18 09/17/18 09/17/18 Range/Units 12:03 12:03 12:03 RBC 3.46 L (4.30-5.90) m/uL Hgb 10.1 L (13.0-17.5) gm/dL Hct 31.2 L (39.0-53.0) % RDW 18.1 H (11.5-15.5) % Plt Count 143 L (150-450) k/uL PT (9.0-12.0) sec INR (<1.2) APTT (22.0-30.0) sec BUN 25 H (9-20) mg/dL Total Creatine Kinase 29 L (55-170) U/L Troponin I 0.053 H* (0.000-0.034) ng/mL Albumin 3.0 L (3.5-5.0) g/dL Amylase <30 L (30-110) U/L 09/17/18 Range/Units 12:03 RBC (4.30-5.90) m/uL Hgb (13.0-17.5) gm/dL Hct (39.0-53.0) % RDW (11.5-15.5) % Plt Count (150-450) k/uL PT 27.9 H (9.0-12.0) sec INR 3.1 H (<1.2) APTT 34.3 H (22.0-30.0) sec BUN (9-20) mg/dL Total Creatine Kinase (55-170) U/L Troponin I (0.000-0.034) ng/mL Albumin (3.5-5.0) g/dL Amylase (30-110) U/L Thrombosis Risk Factor Assmnt - Choose All That Apply Any of the Below Risk Factors Present?: Yes Each Factor Represents 1 point: Swollen legs (current) Other Risk Factors: Yes Each Risk Factor Represents 3 Points: Age 75 years or older Thrombosis Risk Factor Assessment Total Risk Factor Score: 4 Thrombosis Risk Factor Assessment Level: Moderate Risk Assessment and Plan Assessment: Assessment and Plan 1. CHF exacerbation: BNP 87734. Previous Echo shows EF 20-25% with global hypokinesis in 08/2018. CXR shows bilateral pleural effusions. Continue Lasix 40 mg IV BID. Will restart Metoprolol and Losartan. Telemetry monitoring. Daily weights. Ins and Outs. O2 per NC to maintain O2 sat > 92%. FU Cardiology 2. Troponemia: Troponin 0.053. Likely Troponin leak from CHF. Patient not complaining for chest pain. Telemetry monitoring. Trend 2 Trop/EKG to r/o ACS. FU Cardiology 3. Supratherapeutic INR: INR 3.1. Patient is compliant with Coumadin regimen. Will restart as per Pharmacy protocol. Maintain INR of 2-3. FU Cardiology 4. Prerenal azotemia: BUN 25, Cr within normal limits. Likely related to Lasix use. Avoid hydration due to cardiac status. Avoid nephrotoxins. Daily BMP. 5. Hypertension: BP 118/70. Continue Amlodipine 5 mg PO QD, Losartan 25 mg PO QD and Metoprolol 12.5 mg PO BID. Monitor vitals, adjust medications as necessary. 6. Hypothyroidism: Stable. Continue Synthroid 25 mcg PO QD. FU TSH 7. Atrial fibrillation: Rate controlled. Continue Metoprolol 12.5 mg PO BID. Restart Coumadin as per Pharmacy protocol to maintain INR between 2-3. Keep Mg > 2 and K > 4. Telemetry monitoring. FU TSH, Cardiology 8. Depression: Continue Sertraline 50 mg PO QD. 9. DVT Prophylaxis: Warfarin. Patient was at home by himself. Requesting detention placement. We'll speak with case management and social work tomorrow. Treatment for CHF exacerbation with IV diuresis. Trending troponins. Cardiology on consult.
[2018-09-17] MEDS ORDERED: MEDIHONEY TOPICAL PRN (16:28)
[2018-09-17] MEDS ORDERED: WARFARIN 2.5 MG TAB PO ONE (18:00)
[2018-09-17 19:11] LABS: Creatine Kinase MB 1.8 ng/mL (0.0-2.4)
[2018-09-17 19:20] LABS: Troponin I 0.053 ng/mL (0.000-0.034)
[2018-09-17] MEDS: FUROSEMIDE 10 MG/ML 4 ML VIAL IV SCH (19:46)
[2018-09-17] MEDS: SERTRALINE 50 MG TAB PO SCH (19:46)
[2018-09-17] MEDS: METOPROLOL TARTRATE 12.5 MG TAB PO SCH (19:46)
[2018-09-18 01:52] LABS: Creatine Kinase MB 1.7 ng/mL (0.0-2.4)
[2018-09-18 02:19] LABS: Troponin I 0.05 ng/mL (0.000-0.034)
[2018-09-18] MEDS: LEVOTHYROXINE 25 MCG TAB PO SCH (06:00)
[2018-09-18 06:20] LABS: Anisocytosis Slight; HCT 33.9 % (39.0-53.0); HGB 10.5 gm/dL (13.0-17.5); Hypochromasia Marked; MCH 28.1 pg (25.0-35.0); MCV 90.8 fL (80.0-100.0); Mean Platelet Volume 8.6; Platelet Count 147 k/uL (150-450); Poikilocytosis Slight; RBC 3.73 m/uL (4.30-5.90); RDW 18.1 % (11.5-15.5); WBC 4.9 k/uL (3.8-10.6)
[2018-09-18 06:28] LABS: Calcium 8.7 mg/dL (8.4-10.2); Potassium 4.2 mmol/L (3.5-5.1)
[2018-09-18 06:47] LABS: INR 3.6 (<1.2); Prothrombin Time 32.3 sec (9.0-12.0)
[2018-09-18] MEDS: ASPIRIN 81 MG PO SCH (07:58)
[2018-09-18] MEDS: FERROUS SULFATE 325 MG TAB PO SCH (07:58)
[2018-09-18] MEDS: METOPROLOL TARTRATE 12.5 MG TAB PO SCH (07:58)
[2018-09-18] MEDS: FUROSEMIDE 10 MG/ML 4 ML VIAL IV SCH (07:58)
[2018-09-18] MEDS ORDERED: LOSARTAN 25 MG TAB PO SCH (09:00)
[2018-09-18] MEDS ORDERED: amLODIPine 5 MG TAB PO SCH (09:00)
--- NOTE | 2018-09-18 10:05 | P.PN ---
Subjective Progress Note Date: 09/18/18 Principal diagnosis: CHF exacerbation Patient seen and examined. No acute events overnight. Patient reports improvement in his breathing. Lost 8 kg since yesterday. No chest pain, shortness of breath or palpitations. He has no complaints this morning. Objective - Vital Signs Vital signs: Vital Signs Temp 97.6 F 09/18/18 08:00 Pulse 90 09/18/18 08:00 Resp 18 09/18/18 08:00 BP 136/82 09/18/18 08:00 Pulse Ox 93 L 09/18/18 08:00 Intake & Output 09/17/18 09/18/18 09/18/18 18:59 06:59 18:59 Weight 72.575 kg 64.5 kg Other: Voiding Method Urinal Urinal - Exam General: [non toxic], [no distress], [appears at stated age] Derm: [warm], [dry] Head: [atraumatic], [normocephalic], [symmetric], [for dentition] Eyes: [EOMI], [no lid lag], [anicteric sclera] Mouth: [no lip lesion], [mucus membranes moist] Cardiovascular: [S1S2 reg], [systolic murmur] Lungs: [Decreased breath sounds bilateral], [no rhonchi, no rales] , [no accessory muscle use] Abdominal: [soft], [ nontender to palpation], [no guarding], [no appreciable organomegaly] Ext: [no gross muscle atrophy], [1+ pitting edema right lower extremity], [no contractures], [left lower extremity BKA] Neuro: [no focal neuro deficits] Psych: [Alert], [oriented], [appropriate affect] - Labs CBC & Chem 7: 09/18/18 06:01 09/18/18 06:01 Labs: Abnormal Lab Results - Last 24 Hours (Table) 09/17/18 09/17/18 09/17/18 Range/Units 12:03 12:03 12:03 RBC 3.46 L (4.30-5.90) m/uL Hgb 10.1 L (13.0-17.5) gm/dL Hct 31.2 L (39.0-53.0) % RDW 18.1 H (11.5-15.5) % Plt Count 143 L (150-450) k/uL PT (9.0-12.0) sec INR (<1.2) APTT (22.0-30.0) sec BUN 25 H (9-20) mg/dL Total Creatine Kinase 29 L (55-170) U/L Troponin I 0.053 H* (0.000-0.034) ng/mL Albumin 3.0 L (3.5-5.0) g/dL HDL Cholesterol (40-60) mg/dL Amylase <30 L (30-110) U/L 09/17/18 09/17/18 09/18/18 Range/Units 12:03 18:12 00:52 RBC (4.30-5.90) m/uL Hgb (13.0-17.5) gm/dL Hct (39.0-53.0) % RDW (11.5-15.5) % Plt Count (150-450) k/uL PT 27.9 H (9.0-12.0) sec INR 3.1 H (<1.2) APTT 34.3 H (22.0-30.0) sec BUN (9-20) mg/dL Total Creatine Kinase 24 L 25 L (55-170) U/L Troponin I 0.053 H* 0.050 H* (0.000-0.034) ng/mL Albumin (3.5-5.0) g/dL HDL Cholesterol (40-60) mg/dL Amylase (30-110) U/L 09/18/18 09/18/18 09/18/18 Range/Units 06:01 06:01 06:27 RBC 3.73 L (4.30-5.90) m/uL Hgb 10.5 L (13.0-17.5) gm/dL Hct 33.9 L (39.0-53.0) % RDW 18.1 H (11.5-15.5) % Plt Count 147 L (150-450) k/uL PT 32.3 H (9.0-12.0) sec INR 3.6 H (<1.2) APTT (22.0-30.0) sec BUN 25 H (9-20) mg/dL Total Creatine Kinase (55-170) U/L Troponin I (0.000-0.034) ng/mL Albumin (3.5-5.0) g/dL HDL Cholesterol 35 L (40-60) mg/dL Amylase (30-110) U/L Assessment and Plan Assessment: Assessment and Plan 1. CHF exacerbation: BNP 59897. Previous Echo shows EF 20-25% with global hypokinesis in 08/2018. CXR shows bilateral pleural effusions. Continue Lasix 40 mg IV BID (1 more day). Continue Metoprolol 12.5 mg PO BID and Losartan 25 mg PO QD. Telemetry monitoring. Daily weights. Ins and Outs. O2 per NC to maintain O2 sat > 92%. FU Cardiology 2. Troponemia: Troponin 0.053 x 2, 0.050. Likely Troponin leak from CHF. Patient not complaining for chest pain. ACS ruled out. Telemetry monitoring. FU Cardiology 3. Supratherapeutic INR: INR 3.1 to 3.6. Patient is compliant with Coumadin regimen. Will restart as per Pharmacy protocol. Maintain INR of 2-3. FU Cardiology 4. Prerenal azotemia: BUN 25, Cr within normal limits. Likely related to Lasix use. Avoid hydration due to cardiac status. Avoid nephrotoxins. Daily BMP. 5. Hypertension: BP 128/72. Continue Amlodipine 5 mg PO QD, Losartan 25 mg PO QD and Metoprolol 12.5 mg PO BID. Monitor vitals, adjust medications as necessary. 6. Hypothyroidism: Stable. Continue Synthroid 25 mcg PO QD. TSH 3.730. 7. Atrial fibrillation: Rate controlled. Continue Metoprolol 12.5 mg PO BID. Restart Coumadin as per Pharmacy protocol to maintain INR between 2-3. Keep Mg > 2 and K > 4. Telemetry monitoring. FU Cardiology 8. Depression: Continue Sertraline 50 mg PO QD. 9. DVT Prophylaxis: Warfarin. Patient was at home by himself. Requesting assisted placement. We'll speak with case management and social work tomorrow. Treatment for CHF exacerbation with IV diuresis. Cardiology on consult.
[2018-09-18] MEDS: FUROSEMIDE 250 MG in SODIUM CHLORIDE 0.9% 225 ML IVP SCH (15:24)
[2018-09-18] MEDS: SPIRONOLACTONE 25 MG TAB PO SCH (15:26)
[2018-09-18] MEDS: SERTRALINE 50 MG TAB PO SCH (20:09)
[2018-09-18] MEDS: METOPROLOL TARTRATE 25 MG TAB PO SCH (20:09)
--- NOTE | 2018-09-18 21:56 | CONS ---
CONSULTATION Mr. Mercado is an 83-year-old gentleman who is seen for cardiac evaluation. Patient is at present sleepy so history was mainly obtained from the chart. The patient came to the hospital with a complaint of shortness of breath, cough and congestion and some abdominal pain. The patient did not have any fever or chills. This patient has a known history of congestive cardiac failure and has been repeatedly admitted in the hospital with symptoms of shortness of breath and congestive cardiac failure. The patient recently underwent probably repair of the inguinal hernia. HOME MEDICATIONS: Include Zoloft, Carafate, Synthroid, omeprazole, iron tablet, Lasix 40 mg daily, losartan 25 mg daily, Lopressor 12.5 mg b.i.d., Coumadin, Apresoline 50 mg t.i.d. PAST MEDICAL HISTORY: Includes chronic atrial fibrillation, congestive cardiac failure, diabetes, COPD, history of prostate disorder, sleep disorder, history of bilateral knee replacement, bilateral rotator cuff repair, left below-knee amputation in December of 2016. PHYSICAL EXAMINATION: At present reveals 83-year-old gentleman is lying comfortably without any shortness of breath. Heart rate is 101 per minute. Patient is afebrile. Blood pressure is 131/66 mmHg, oxygen saturation is 93%. HEENT examination is negative. Neck is supple. Jugular venous pressure is elevated up to the angle of jaw. Both the carotid pulses are felt. There is no bruit. Chest is symmetrical. Heart: The PMI is not felt. There is a first and second heart sounds are heard. There is a grade 3/6 ejection systolic murmur noted. Lungs reveal bilateral basal rales. ABDOMEN: Soft. Extremities: There is a 1 to 2+ pedal edema. Chest x-ray is suggestive of congestive cardiac failure and probably pseudotumor which was noted on the previous CT scan. Electrolytes are normal. Creatinine is 1.30. The patient has a minimally elevated troponin. EKG shows evidence of atrial fibrillation. The patient had a recent echocardiogram done which showed severely impaired left ventricular systolic function and moderate to severe aortic stenosis. FINAL IMPRESSION: 1. This patient has presented with symptoms of cough, congestion and shortness of breath. The patient has evidence of acute on chronic systolic heart failure. 2. Patient has a cardiomyopathy with severely impaired left ventricular systolic function and a moderate to severe aortic stenosis. 3. Chronic atrial fibrillation. RECOMMENDATIONS: We will start the patient on Lasix ip. Aldactone 25 mg daily will be added and we will increase the dose of Cozaar to 50 mg daily and metoprolol is increased to 25 mg b.i.d. The patient's overall prognosis is poor. KEYANA / MONICA: [id number] /
--- NOTE | 2018-09-19 05:29 | CONS ---
CONSULTATION Mr. Mercado is an 83-year-old gentleman who came to the emergency room with multiple complaints. Patient has been having some cough and congestion and shortness of breath and patient also has been having some abdominal pain. Patient denies any history of fever with chills. Denies any history of . Denies any nausea, vomiting or denies any significant abdominal pain. The patient's home medications include Synthroid 25 mcg daily, Zoloft, Carafate, aspirin, omeprazole, ferrous sulfate, Lasix 40 mg daily, Cozaar 25 mg daily. The patient is on Coumadin 2.5 mg daily, Norvasc 5 mg daily, Apresoline 50 mg 3 times a day. Past medical history includes this patient has a history of a moderate degree of aortic stenosis with severely impaired left ventricular systolic function in the past. MMODL / IJN: [id number] /
--- NOTE | 2018-09-19 05:43 | CONS ---
CONSULTATION Mr. Mercado is an 83-year-old gentleman who is seen for cardiac evaluation. This patient is hard of hearing, unable to get much detailed history. History was obtained from the chart. This patient has a known history of hypertension, congestive cardiac failure. The patient came to the emergency room with the symptoms of cough and shortness of breath. The patient did not have any chest pain, fever or chills. The patient gives a history that he lives alone, but he feels that he is not safe himself to stay by himself. The patient denies any definite prior history of myocardial infarction. PAST MEDICAL HISTORY: Past medical history includes history of congestive heart failure, diabetes, history of hypertension, hyperlipidemia, bilateral knee replacement, bilateral rotator cuff, left below-knee amputation, history of anxiety and depression. HOME MEDICATIONS: Patient's home medications included Lasix, Cozaar, metoprolol 12.5, Coumadin, amlodipine and hydralazine. PHYSICAL EXAMINATION: Physical examination at present reveals an 83-year-old gentleman who is not in any acute respiratory distress. Patient is afebrile. Heart rate is 80 to 90 per minute. Respiratory rate is 18 and they are not labored. Head/ENT examination is negative. Neck is supple. Jugular venous pressure is elevated. HEART: First and second heart sounds are normal. There is an ejection systolic murmur noted, grade 3/6 peaking in the mid systole. Lungs examination reveal bilateral basal . EXTREMITIES: There is 1+ edema noted. Patient's chest x-ray is suggestive of congestive cardiac failure. EKG shows evidence of atrial fibrillation with fast ventricular rate. Patient's echocardiogram during the previous admission which shows severely impaired left ventricular systolic function and moderate to severe degree of aortic stenosis. The patient's hemoglobin is 10.5. INR is 3.6. Electrolytes are normal. The patient has minimal elevated troponin which is secondary to cardiomyopathy and congestive cardiac failure. The patient's proBNP level is 30,800. FINAL IMPRESSION: This patient is admitted with a cough and shortness of breath. The patient has evidence of acute on chronic systolic failure. Patient also has evidence of moderate to severe aortic stenosis. RECOMMENDATIONS: We will recommend to diurese the patient with Lasix drip and the metoprolol is increased to 25 mg twice a day, Aldactone 25 mg daily is added and we will continue the patient on Cozaar, which is increased to 50 mg daily. MMODL / IJN: [id number] /
[2018-09-19] MEDS: LEVOTHYROXINE 25 MCG TAB PO SCH (06:15)
[2018-09-19 07:33] LABS: INR 3.4 (<1.2); Prothrombin Time 30.3 sec (9.0-12.0)
[2018-09-19] MEDS: FERROUS SULFATE 325 MG TAB PO SCH (08:13)
[2018-09-19] MEDS: METOPROLOL TARTRATE 25 MG TAB PO SCH ×2 (08:13→20:00)
[2018-09-19] MEDS: ASPIRIN 81 MG PO SCH (08:13)
[2018-09-19] MEDS: LOSARTAN 50 MG TAB PO SCH (08:13)
[2018-09-19] MEDS: SPIRONOLACTONE 25 MG TAB PO SCH (08:13)
--- NOTE | 2018-09-19 11:33 | CDI ---
Last Revision, October 2017 Documentation Clarification Form Date: 09/19/2018 11:27:21 AM From: Anna Bourgeois RN, CCDS Admit Date: 09/17/2018 2:24:00 PM Patient Name: Hood Mercado Visit Number: [id number] ATTENTION: The Clinical Documentation Specialists (CDI) and [facility] Coding Staff appreciate your assistance in clarifying documentation. Please respond to the clarification below the line at the bottom and electronically sign. The CDI & [facility] Coding staff will review the response and follow-up if needed. Please note: Queries are made part of the Legal Health Record. If you have any questions, please contact the author of this message via ITS. Tang Canales MD A low Hgb and Hct have been noted and lacks specificity to accurately reflect your patients severity of condition and clarification is needed. History/Risk Factors: chronic atrial fib, chest pain, CHF, COPD, Clinical indicators: Hemoglobin: 10.1/10.5 Hematocrit: 31.2/33.9 Treatment: Feosol 325 mg PO QD Lab monitoring AM daily In order to capture the severity of condition, please clarify the significance of the abnormal labs and etiology if known: Acute blood loss anemia Acute on chronic blood loss anemia Chronic blood loss anemia Iron deficiency anemia Drug induced anemia Nutritional anemia Anemia of chronic disease Unable to determine Other, please specify Please continue to document in your progress notes and discharge summary in order to capture severity of illness and risk of mortality. Include clinical findings that support your diagnosis. Other, unable to specify. MTDD
[2018-09-19 11:47] LABS: Calcium 8.5 mg/dL (8.4-10.2); Potassium 3.5 mmol/L (3.5-5.1)
--- NOTE | 2018-09-19 14:50 | P.PN ---
Subjective Progress Note Date: 09/19/18 This is an 83-year-old gentleman seen in consultation on Wednesday. He was primarily admitted to the hospital with symptoms of shortness breath, currently receiving treatment for congestive heart failure. His weight today is down 2 kg, he is putting out good urine overall. INR today is 3.4, sodium 137, potassium 3.5, BUN 27, creatinine 1.0. He continues to be on a Lasix drip at 10 mg per hour. Objective - Vital Signs Vital signs: Vital Signs Temp 97.4 F L 09/19/18 12:00 Pulse 58 L 09/19/18 12:00 Resp 18 09/19/18 12:00 BP 127/68 09/19/18 12:00 Pulse Ox 91 L 09/19/18 12:00 Intake & Output 09/18/18 09/19/18 09/19/18 18:59 06:59 18:59 Intake Total 118 360 Output Total 1350 1100 Balance 118 -1350 -740 Weight 62 kg Intake: Oral 118 360 Output: Urine 1350 1100 Other: Voiding Method Urinal Urinal Urinal # Voids 5 - Exam PHYSICAL EXAMINATION: GENERAL: 83-year-old gentleman in no acute distress at the time of my examination HEENT: Head is atraumatic, normocephalic. Pupils equal, round. Sclera anicteric. Conjunctiva are clear. Mucous membranes of the mouth are moist. Neck is supple. There is elevated jugular venous pressure. No carotid bruit is heard. HEART EXAMINATION: Heart S1 and S2 systolic ejection murmur is heard. CHEST EXAMINATION: Lungs reveal rales bilaterally to the bases. ABDOMEN: Soft, nontender. Bowel sounds are heard. No organomegaly noted. EXTREMITIES: 2+ peripheral pulses with 1+ evidence of peripheral edema and no calf tenderness noted. NEUROLOGIC patient is awake, alert and oriented 1 . - Labs CBC & Chem 7: 09/18/18 06:01 09/19/18 06:32 Labs: Abnormal Lab Results - Last 24 Hours (Table) 09/19/18 09/19/18 Range/Units 06:32 06:32 PT 30.3 H (9.0-12.0) sec INR 3.4 H (<1.2) BUN 27 H (9-20) mg/dL Glucose 72 L (74-99) mg/dL Assessment and Plan Plan: Assessment and plan #1 systolic congestive heart failure acute on chronic #2 moderate to severe aortic stenosis #3 hypertension #4 abnormality in troponin, not consistent with acute coronary syndrome #5 hypothyroidism #6 chronic persistent atrial fibrillation on Coumadin for anticoagulation #7 depression Plan From cardiology's perspective, we'll continue patient on his current dose of IV Lasix drip continue to monitor intake and output along with daily weights and daily lytes BUN and creatinine. DNP note has been reviewed, I agree with a documented findings and plan of care. Patient was seen and examined.
[2018-09-19] MEDS: FUROSEMIDE 250 MG in SODIUM CHLORIDE 0.9% 225 ML IVP SCH (16:00)
[2018-09-19] MEDS ORDERED: WARFARIN 0.5 MG TAB PO ONE (18:00)
[2018-09-19] MEDS: SERTRALINE 50 MG TAB PO SCH (20:00)
[2018-09-20] MEDS: LEVOTHYROXINE 25 MCG TAB PO SCH (06:20)
[2018-09-20 06:24] LABS: INR 2.6 (<1.2)
[2018-09-20 06:31] LABS: Calcium 8.3 mg/dL (8.4-10.2); Potassium 3.1 mmol/L (3.5-5.1)
--- NOTE | 2018-09-20 07:18 | PN ---
PROGRESS NOTE DATE OF SERVICE: 09/19/2018 PRESENTING COMPLAINT: Tired, short of breath. INTERVAL HISTORY: This patient has dementia with CHF exacerbation, is on IV fluids, has been in negative fluid balance. Getting IV fluids, weak, tired, run down. Did not give a limited history. REVIEW OF SYSTEMS: Attempted for constitutional, cardiovascular, GI, pulmonary; relevant findings as above. CURRENT MEDICATIONS: Reviewed that include Lasix drip. PHYSICAL EXAMINATION: Temperature 97.2, pulse 74, respiration 18, blood pressure 109/57, pulse ox 99% on 2 L. GENERAL APPEARANCE: Lying in bed, tired appearing. EYES: Pupils equal. Conjunctivae are pale. HEENT: Decreased hearing. Oral cavity dry, mucous membranes. NECK: JVD unable to assess. RESPIRATORY: Effort increased. LUNGS: Decreased breath sounds. CARDIOVASCULAR: Heart sounds irregular, no edema. ABDOMEN: Soft, nontender. Liver and spleen not palpable. PSYCHIATRY: Patient answers occasional questions. INVESTIGATIONS: INR 3.4, potassium 3.5, BUN 27, creatinine 1.08. TSH normal. I's and O's show close to 3000 mL negative fluid balance. ASSESSMENT: 1. Acute on chronic congestive heart failure exacerbation from systolic dysfunction, ejection fraction 20% to 25%. 2. Severe secondary pulmonary hypertension secondary to congestive heart failure. 3. Severe mitral and tricuspid regurgitation, nonrheumatic. 4. Persistent atrial fibrillation. 5. Hypothyroidism. 6. Left below-knee amputation. 7. 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 8. Primary osteoarthritis multiple joints bilateral. 9. Benign prostatic hypertrophy. 10.Very hard of hearing. 11.Baseline medical debility. 12.Moderate aortic stenosis, non-rheumatic.\. 13.CODE STATUS: DO NOT RESUSCITATE. PLAN: Patient is on IV Lasix. Continue on medical treatment and plan. Prognosis is guarded. Will check a repeat x-ray in the morning and check a BNP in the morning. Prognosis is guarded. MMODL / IJN: [id number] /
--- NOTE | 2018-09-20 08:34 | XR ---
EXAMINATION TYPE: XR chest 1V portable DATE OF EXAM: 09/20/2018 COMPARISON: 09/17/2018 HISTORY: Follow-up for congestive heart failure. Shortness of breath. TECHNIQUE: Single frontal view of the chest is obtained. FINDINGS: There is persistent confluent opacity within the right midlung and cardiomegaly. There is a similar appearance to postoperative and degenerative changes of the shoulders. Pulmonary vascular c ongestion has improved and is now mild. No sizable pneumothorax. Very trace pleural effusions remaini ng as discussed on the prior blunting the costophrenic angles. IMPRESSION: Improvement in degree of pulmonary vascular congestion, now mild with persistent very tr laura pleural effusions. Confluent right midlung opacity remains and could represent intrafissural flui d, pneumonia, or mass. Follow-up to resolution is recommended.
[2018-09-20] MEDS: METOPROLOL TARTRATE 25 MG TAB PO SCH ×2 (09:45→21:12)
[2018-09-20] MEDS: ASPIRIN 81 MG PO SCH (09:45)
[2018-09-20] MEDS: LOSARTAN 50 MG TAB PO SCH (09:46)
[2018-09-20] MEDS: SPIRONOLACTONE 25 MG TAB PO SCH (09:46)
--- NOTE | 2018-09-20 14:28 | P.PN ---
Subjective Progress Note Date: 09/20/18 This is an 83-year-old gentleman seen in consultation on Wednesday. He was primarily admitted to the hospital with symptoms of shortness breath, chest x-ray shows improvement in the degree of pulmonary vascular congestion. Trace bilateral pleural effusions. currently receiving treatment for congestive heart failure. His weight today is unchanged. he is putting out good urine overall. INR today is 2.6, sodium 136, potassium 3.1, BUN 24, creatinine 1.0. He continues to be on a Lasix drip at 10 mg per hour. Repeat chest x-ray from today shows improvement in the degree of pulmonary vascular congestion, now mild with persistent very trace pleural effusions. Patient is sitting up in the chair at the time of my examination, he states he is feeling better. We'll continue to diurese with IV Lasix drip for 24 hours. Objective - Vital Signs Vital signs: Vital Signs Temp 97.6 F 09/20/18 04:00 Pulse 87 09/20/18 08:00 Resp 20 09/20/18 08:00 BP 123/73 09/20/18 08:00 Pulse Ox 92 L 09/20/18 08:00 Intake & Output 09/19/18 09/20/18 09/20/18 18:59 06:59 18:59 Intake Total 846 120 Output Total 1600 2049 Balance - 120 Weight 62 kg 62.5 kg Intake: Intake, IV Titration 246 Amount Furosemide 250 mg In 246 Sodium Chloride 0.9% 225 ml @ 10 MG/HR 10 mls/hr IVP .Q24H [facility] Rx#: [id number] Oral 600 120 Output: Urine 1599 2049 Other: Voiding Method Urinal Urinal - Exam PHYSICAL EXAMINATION: GENERAL: 83-year-old gentleman in no acute distress at the time of my examination HEENT: Head is atraumatic, normocephalic. Pupils equal, round. Sclera anicteric. Conjunctiva are clear. Mucous membranes of the mouth are moist. Neck is supple. There is elevated jugular venous pressure. No carotid bruit is heard. HEART EXAMINATION: Heart S1 and S2 systolic ejection murmur is heard. CHEST EXAMINATION: Lungs reveal rales bilaterally to the bases. ABDOMEN: Soft, nontender. Bowel sounds are heard. No organomegaly noted. EXTREMITIES: 2+ peripheral pulses with 1+ evidence of peripheral edema and no calf tenderness noted. NEUROLOGIC patient is awake, alert and oriented 1 . - Labs CBC & Chem 7: 09/18/18 06:01 09/20/18 05:47 Labs: Abnormal Lab Results - Last 24 Hours (Table) 09/20/18 09/20/18 Range/Units 05:47 05:47 PT 23.0 H (9.0-12.0) sec INR 2.6 H (<1.2) Sodium 136 L (137-145) mmol/L Potassium 3.1 L (3.5-5.1) mmol/L Chloride 94 L (98-107) mmol/L Carbon Dioxide 37 H (22-30) mmol/L BUN 24 H (9-20) mg/dL Calcium 8.3 L (8.4-10.2) mg/dL Assessment and Plan Plan: Assessment and plan #1 systolic congestive heart failure acute on chronic #2 moderate to severe aortic stenosis #3 hypertension #4 abnormality in troponin, not consistent with acute coronary syndrome #5 hypothyroidism #6 chronic persistent atrial fibrillation on Coumadin for anticoagulation #7 depression Plan From cardiology's perspective, we'll continue patient on his current dose of IV Lasix drip for 24 hours, continue to monitor intake and output along with daily weights and daily lytes BUN and creatinine. DNP note has been reviewed, I agree with a documented findings and plan of care. Patient was seen and examined.
[2018-09-20] MEDS: FUROSEMIDE 250 MG in SODIUM CHLORIDE 0.9% 225 ML IVP SCH (15:56)
[2018-09-20] MEDS: FERROUS SULFATE 325 MG TAB PO SCH (15:58)
[2018-09-20] MEDS ORDERED: WARFARIN 2.5 MG TAB PO ONE (18:00)
--- NOTE | 2018-09-20 19:27 | PN ---
PROGRESS NOTE DATE OF SERVICE: September 20, 2018. PRESENTING COMPLAINT: Tired, short of breath. INTERVAL HISTORY: This patient with dementia, CHF exacerbation remains is on IV Lasix drip. Now has been close to 4000 mL in negative fluid balance. Did tolerate some diet. Sitting up on a chair. Feels tired and run down. Did tolerate some oral intake. Does feel tired and run down. REVIEW OF SYSTEMS: Done for constitutional, cardiovascular, GI, pulmonary; relevant findings as above. CURRENT MEDICATIONS: Reviewed and include IV Lasix drip. PHYSICAL EXAMINATION: VITAL SIGNS: Temperature 97.6, pulse 50, respiratory 18, blood pressure 130/64, pulse ox 99% on 2 L. GENERAL APPEARANCE: Sitting up on a chair, awake, tired-appearing. EYES: Pupils equal. Conjunctivae pale. HEENT: External appearance of nose and ears normal. Oral cavity dry. NECK: JVD possibly raised. Mass not palpable. RESPIRATORY: Effort increased. LUNGS: Decreased breath sounds. CARDIOVASCULAR: Heart sounds irregular. Minimal edema. ABDOMEN: Soft, nontender. Liver and spleen not palpable. PSYCHIATRY: Tired- appearing but able to answer simple questions. EXTREMITIES: Left leg prosthesis. DERMATOLOGICAL: Patient has got a wound on the right ankle, present on admission. INVESTIGATIONS: INR 2.6. Potassium 3.1, BUN 24, [place] [address]. Chest x-ray film personally reviewed by me shows improvement in vascular prominence. ASSESSMENT: 1. Acute on chronic congestive heart failure exacerbation from systolic dysfunction, ejection fraction 20-25 percent slow to respond. Patient remains on IV Lasix drip per Cardiology for another 24 hours. 2. Severe secondary pulmonary hypertension secondary to congestive heart failure. 3. Severe mitral and tricuspid regurgitation, nonrheumatic. 4. Persistent atrial fibrillation on Coumadin. 5. Hypothyroidism. 6. Left below-knee amputation with prosthesis. 7. Moderate cognitive impairment probably from underlying Alzheimer's dementia. 8. Primary osteoarthritis multiple joints bilateral. 9. Benign prostatic hypertrophy. 10.Very hard of hearing. 11.Baseline medical debility. 12.Moderate aortic stenosis, nonrheumatic. 13.CODE STATUS: DO NOT RESUSCITATE. PLAN: Patient remains on IV Lasix drip, I's and O's to be followed. Showing some response. Overall prognosis remains guarded. We will get Physical therapy to see the patient. MMODL / IJN: [id number] /
[2018-09-20] MEDS: SERTRALINE 50 MG TAB PO SCH (21:12)
[2018-09-21] MEDS: LEVOTHYROXINE 25 MCG TAB PO SCH (06:22)
[2018-09-21] MEDS: ONDANSETRON 4 MG/2 ML VIAL IVP PRN ×2 (06:22→12:15)
[2018-09-21 06:30] LABS: INR 2.2 (<1.2); Prothrombin Time 20.2 sec (9.0-12.0)
[2018-09-21 06:32] LABS: Calcium 8.7 mg/dL (8.4-10.2); Magnesium 1.6 mg/dL (1.6-2.3); Potassium 3.6 mmol/L (3.5-5.1)
[2018-09-21] MEDS: METOPROLOL TARTRATE 25 MG TAB PO SCH ×2 (09:58→20:13)
[2018-09-21] MEDS: ASPIRIN 81 MG PO SCH (09:58)
[2018-09-21] MEDS: SPIRONOLACTONE 25 MG TAB PO SCH (09:58)
[2018-09-21] MEDS: LOSARTAN 50 MG TAB PO SCH (09:58)
[2018-09-21] MEDS: FERROUS SULFATE 325 MG TAB PO SCH (09:58)
[2018-09-21] MEDS: FUROSEMIDE 250 MG in SODIUM CHLORIDE 0.9% 225 ML IVP SCH (12:19)
--- NOTE | 2018-09-21 15:43 | P.PN ---
Subjective Progress Note Date: 09/21/18 This is an 83-year-old gentleman seen in consultation on Wednesday. He was primarily admitted to the hospital with symptoms of shortness breath, chest x-ray shows improvement in the degree of pulmonary vascular congestion. Trace bilateral pleural effusions. currently receiving treatment for congestive heart failure. His weight today is unchanged. he is putting out good urine overall. INR today is 2.6, sodium 136, potassium 3.1, BUN 24, creatinine 1.0. He continues to be on a Lasix drip at 10 mg per hour. Repeat chest x-ray from today shows improvement in the degree of pulmonary vascular congestion, now mild with persistent very trace pleural effusions. Patient is sitting up in the chair at the time of my examination, he states he is feeling better. We'll continue to diurese with IV Lasix drip for 24 hours. 09/20/2018 Patient was seen and examined this morning, overall feeling significantly better. Continue to diurese well through the night. INR 2.2. Sodium 136, potassium 3.6, BUN 27, creatinine 1.0, magnesium 1.6. Objective - Vital Signs Vital signs: Vital Signs Temp 97.1 F L 09/21/18 12:00 Pulse 61 09/21/18 12:00 Resp 20 09/21/18 12:00 BP 117/57 09/21/18 12:00 Pulse Ox 95 09/21/18 12:00 Intake & Output 09/20/18 09/21/18 09/21/18 18:59 06:59 18:59 Intake Total 719.333 203.833 Output Total 600 575 Balance 119.333 -575 203.833 Weight 62.5 kg Intake: Intake, IV Titration 239.333 203.833 Amount Furosemide 250 mg In 239.333 203.833 Sodium Chloride 0.9% 225 ml @ 10 MG/HR 10 mls/hr IVP .Q24H [facility] Rx#: [id number] Oral 480 Output: Urine 600 575 Other: Voiding Method Urinal - Exam PHYSICAL EXAMINATION: GENERAL: 83-year-old gentleman in no acute distress at the time of my examination HEENT: Head is atraumatic, normocephalic. Pupils equal, round. Sclera anicteric. Conjunctiva are clear. Mucous membranes of the mouth are moist. Neck is supple. There is elevated jugular venous pressure. No carotid bruit is heard. HEART EXAMINATION: Heart S1 and S2 systolic ejection murmur is heard. CHEST EXAMINATION: Lungs reveal rales bilaterally to the bases. ABDOMEN: Soft, nontender. Bowel sounds are heard. No organomegaly noted. EXTREMITIES: 2+ peripheral pulses with 1+ evidence of peripheral edema and no calf tenderness noted. NEUROLOGIC patient is awake, alert and oriented 1 . - Labs CBC & Chem 7: 09/18/18 06:01 09/21/18 05:53 Labs: Abnormal Lab Results - Last 24 Hours (Table) 09/21/18 09/21/18 Range/Units 05:53 05:53 PT 20.2 H (9.0-12.0) sec INR 2.2 H (<1.2) Sodium 136 L (137-145) mmol/L Chloride 91 L (98-107) mmol/L Carbon Dioxide 40 H (22-30) mmol/L BUN 27 H (9-20) mg/dL Assessment and Plan Plan: Assessment and plan #1 systolic congestive heart failure acute on chronic #2 moderate to severe aortic stenosis #3 hypertension #4 abnormality in troponin, not consistent with acute coronary syndrome #5 hypothyroidism #6 chronic persistent atrial fibrillation on Coumadin for anticoagulation #7 depression Plan From cardiology's perspective, we'll discontinue Lasix IV and start the patient on Lasix 40 mg by mouth twice a day. Replace potassium and magnesium. Check lytes BUN and creatinine in the morning. DNP note has been reviewed, I agree with a documented findings and plan of care. Patient was seen and examined.
[2018-09-21] MEDS: POTASSIUM CHLORIDE ER 20 MEQ TAB.ER PO SCH ×3 (16:03→20:13)
[2018-09-21] MEDS: FUROSEMIDE 40 MG TAB PO SCH (16:58)
[2018-09-21] MEDS: MAGNESIUM SULFATE-D5W PMX 1 GM in DEXTROSE/WATER 1 100ML.BAG IVPB SCH ×2 (16:58→18:02)
[2018-09-21] MEDS ORDERED: WARFARIN 5 MG TAB PO ONE (18:00)
[2018-09-21] MEDS: SERTRALINE 50 MG TAB PO SCH (20:12)
--- NOTE | 2018-09-21 20:23 | PN ---
PROGRESS NOTE DATE OF SERVICE: September 21, 2018. PRESENTING COMPLAINT: Tired, short of breath. INTERVAL HISTORY: The patient with dementia presented with CHF exacerbation. Lasix was stopped this morning. Has made good urine output. Was eating about 50% of meals yesterday. Does feel tired and run down. Somewhat lethargic. REVIEW OF SYSTEMS: Was attempted for constitutional, cardiovascular, GI, pulmonary. CURRENT MEDICATIONS: Include p.o. Lasix. PHYSICAL EXAMINATION: VITAL SIGNS: Temperature 97.1, pulse 82, respiratory 20, blood pressure 117/57, pulse ox 95% on 2 L. GENERAL APPEARANCE: Sitting in a chair, lethargic but arousable. EYES: Pupils equal. Conjunctivae pale. HEENT: External appearance of nose and ears normal. Oral cavity dry. NECK: JVD unable to assess. Mass not palpable. RESPIRATORY: Effort normal. LUNGS: Decreased breath sounds. CARDIOVASCULAR: 1st and 2nd sounds normal. No edema. ABDOMEN: Soft, nontender. Liver and spleen not palpable. EXTREMITIES: Left leg prosthesis. INVESTIGATIONS: Potassium 3.6, BUN 27, creatinine 1.00. INR 2.2. ASSESSMENT: 1. Acute on chronic congestive heart failure exacerbation from systolic dysfunction, EF 20% to 25%. The patient has been switched to p.o. Lasix. 2. Severe secondary pulmonary hypertension secondary to congestive heart failure. 3. Severe mitral and tricuspid regurgitation, nonrheumatic. 4. Persistent atrial fibrillation on Coumadin. 5. Hypothyroidism. 6. Left below-knee amputation with a prosthesis. 7. Moderate cognitive impairment probably from underlying Alzheimer's dementia. 8. Primary osteoarthritis multiple joints bilateral. 9. Benign prostatic hypertrophy. 10.Very hard of hearing. 11.Baseline medical debility. 12.Moderate aortic stenosis, nonrheumatic. 13.CODE STATUS: DO NOT RESUSCITATE. PLAN: Prognosis is guarded. Switch to p.o. Lasix. Lets see how the patient does today. Hopefully can transfer back to [facility] tomorrow. MMODL / IJN: [id number] /
[2018-09-22 02:26] VITALS: RESP 18
[2018-09-22 06:32] LABS: INR 2.2 (<1.2); Prothrombin Time 19.5 sec (9.0-12.0)
[2018-09-22 06:43] LABS: Calcium 8.8 mg/dL (8.4-10.2); Potassium 5.1 mmol/L (3.5-5.1)
[2018-09-22] MEDS: LEVOTHYROXINE 25 MCG TAB PO SCH (06:55)
[2018-09-22] MEDS: ASPIRIN 81 MG PO SCH (09:50)
[2018-09-22] MEDS: SPIRONOLACTONE 25 MG TAB PO SCH (09:50)
[2018-09-22] MEDS: FUROSEMIDE 40 MG TAB PO SCH ×2 (09:50→16:16)
[2018-09-22] MEDS: METOPROLOL TARTRATE 25 MG TAB PO SCH ×2 (09:51→20:35)
[2018-09-22] MEDS: FERROUS SULFATE 325 MG TAB PO SCH (12:38)
[2018-09-22] MEDS: LOSARTAN 50 MG TAB PO SCH (12:41)
[2018-09-22] MEDS ORDERED: SODIUM CHLORIDE 0.9% 750 ML IV SCH (12:45)
--- NOTE | 2018-09-22 16:31 | P.PN ---
Subjective Progress Note Date: 09/22/18 This is an 83-year-old gentleman seen in consultation on Wednesday. He was primarily admitted to the hospital with symptoms of shortness breath, chest x-ray shows improvement in the degree of pulmonary vascular congestion. Trace bilateral pleural effusions. currently receiving treatment for congestive heart failure. His weight today is unchanged. he is putting out good urine overall. INR today is 2.6, sodium 136, potassium 3.1, BUN 24, creatinine 1.0. He continues to be on a Lasix drip at 10 mg per hour. Repeat chest x-ray from today shows improvement in the degree of pulmonary vascular congestion, now mild with persistent very trace pleural effusions. Patient is sitting up in the chair at the time of my examination, he states he is feeling better. We'll continue to diurese with IV Lasix drip for 24 hours. 09/21/2018 Patient was seen and examined this morning, overall feeling significantly better. Continue to diurese well through the night. INR 2.2. Sodium 136, potassium 3.6, BUN 27, creatinine 1.0, magnesium 1.6. 09/22/2018 Patient seen and examined this morning, again diurese well through the night, weight down 2 kg today. Creatinine 1.3, potassium 5.1. He is currently on by mouth diuretics, we'll continue to monitor for another 24 hours and plan for possible discharge home in the morning tomorrow. Objective - Vital Signs Vital signs: Vital Signs Temp 97.7 F 09/22/18 12:00 Pulse 74 09/22/18 12:00 Resp 18 09/22/18 12:00 BP 86/54 09/22/18 12:00 Pulse Ox 98 09/22/18 12:00 Intake & Output 09/21/18 09/22/18 09/22/18 18:59 06:59 18:59 Intake Total 203.833 720 Balance 203.833 720 Weight 60.5 kg Intake: Intake, IV Titration 203.833 Amount Furosemide 250 mg In 203.833 Sodium Chloride 0.9% 225 ml @ 10 MG/HR 10 mls/hr IVP .Q24H [facility] Rx#: [id number] Oral 0 720 Other: Voiding Method Diaper Diaper # Voids 1 1 - Exam PHYSICAL EXAMINATION: GENERAL: 83-year-old gentleman in no acute distress at the time of my examination HEENT: Head is atraumatic, normocephalic. Pupils equal, round. Sclera anicteric. Conjunctiva are clear. Mucous membranes of the mouth are moist. Neck is supple. There is elevated jugular venous pressure. No carotid bruit is heard. HEART EXAMINATION: Heart S1 and S2 systolic ejection murmur is heard. CHEST EXAMINATION: Lungs reveal rales bilaterally to the bases. ABDOMEN: Soft, nontender. Bowel sounds are heard. No organomegaly noted. EXTREMITIES: 2+ peripheral pulses with 1+ evidence of peripheral edema and no calf tenderness noted. NEUROLOGIC patient is awake, alert and oriented 1 . - Labs CBC & Chem 7: 09/18/18 06:01 09/22/18 05:59 Labs: Abnormal Lab Results - Last 24 Hours (Table) 09/22/18 09/22/18 Range/Units 05:59 05:59 PT 19.5 H (9.0-12.0) sec INR 2.2 H (<1.2) Chloride 94 L (98-107) mmol/L Carbon Dioxide 39 H (22-30) mmol/L BUN 35 H (9-20) mg/dL Creatinine 1.34 H (0.66-1.25) mg/dL Assessment and Plan Plan: Assessment and plan #1 systolic congestive heart failure acute on chronic #2 moderate to severe aortic stenosis #3 hypertension #4 abnormality in troponin, not consistent with acute coronary syndrome #5 hypothyroidism #6 chronic persistent atrial fibrillation on Coumadin for anticoagulation #7 depression Plan From cardiology's perspective, we will continue current dose of oral diuretics, check lytes BUN and creatinine in the morning. Plan for possible discharge home in 24 hours if stable. DNP note has been reviewed, I agree with a documented findings and plan of care. Patient was seen and examined.
[2018-09-22 16:35] LABS: Glucose,Whole Blood 100 mg/dL (75-99)
[2018-09-22] MEDS ORDERED: WARFARIN 2.5 MG TAB PO ONE (18:00)
[2018-09-22] MEDS: SERTRALINE 50 MG TAB PO SCH (20:35)
[2018-09-23] MEDS: LEVOTHYROXINE 25 MCG TAB PO SCH (06:16)
[2018-09-23 07:27] LABS: INR 2.8 (<1.2); Prothrombin Time 24.9 sec (9.0-12.0)
--- NOTE | 2018-09-23 07:31 | PN ---
PROGRESS NOTE DATE OF SERVICE: 09/22/2018 PRESENTING COMPLAINT: Tired, short of breath. INTERVAL HISTORY: This patient with dementia presented with CHF exacerbation. Switched over to p.o. Lasix yesterday. Today became hypotensive, blood pressure went down to about 70 systolic. Losartan dose was held this morning. Creatinine also bumped up. Patient does feel tired and run down. REVIEW OF SYSTEMS: Done for constitutional, cardiovascular, GI, pulmonary; relevant findings as above. CURRENT MEDICATIONS: Reviewed that include p.o. Lasix, Lopressor, Aldactone. PHYSICAL EXAMINATION: Temperature 97.7, pulse 74, respirations 18, blood pressure 86/54, pulse ox 98% on 2 L. GENERAL APPEARANCE: Propped up, tired-appearing. EYES: Pupils equal, conjunctivae are pale. HEENT: External appearance of nose and ears normal. Oral cavity dry. NECK: JVD unable to assess. Mass not palpable. RESPIRATORY: Effort normal. LUNGS: Decreased breath sounds. CARDIOVASCULAR: First and second sounds are normal. No edema. ABDOMEN: Soft, nontender. Liver and spleen not palpable. EXTREMITIES: Left leg prosthesis. INVESTIGATIONS: INR 2.2. Potassium 5.1, BUN 35, creatinine 1.34. ASSESSMENT: 1. Acute on chronic congestive heart failure exacerbation from systolic dysfunction, ejection fraction 20% to 25%. The patient has been switched to p.o. Lasix. 2. Acute renal failure prerenal from diuresis. Creatinine has gone up by 0.3. 3. Severe secondary pulmonary hypertension secondary to congestive heart failure. 4. Severe mitral tricuspid regurgitation, nonrheumatic. 5. Persistent atrial fibrillation on Coumadin. 6. Hypothyroidism. 7. Left below-knee amputation from prosthesis. 8. Moderate cognitive impairment, probably from underlying Alzheimer's dementia. 9. Primary osteoarthritis multiple joints bilateral. 10.Benign prostatic hypertrophy. 11.Very hard of hearing. 12.Baseline medical debility. 13.Moderate aortic stenosis, nonrheumatic. 14.CODE STATUS: DO NOT RESUSCITATE. PLAN: Will give some gentle hydration today to bring up the blood pressure. The patient's Cozaar has been held today. The patient should be hopefully well to be discharged tomorrow. Repeat electrolytes tomorrow. MMODL / IJN: [id number] /
[2018-09-23 07:44] LABS: Calcium 8.6 mg/dL (8.4-10.2); Potassium 4.3 mmol/L (3.5-5.1)
[2018-09-23] MEDS: FUROSEMIDE 40 MG TAB PO SCH (09:04)
[2018-09-23] MEDS: FERROUS SULFATE 325 MG TAB PO SCH (09:04)
[2018-09-23] MEDS: SPIRONOLACTONE 25 MG TAB PO SCH (09:04)
[2018-09-23] MEDS: ASPIRIN 81 MG PO SCH (09:04)
[2018-09-23] MEDS: LOSARTAN 50 MG TAB PO SCH (09:04)
[2018-09-23] MEDS: METOPROLOL TARTRATE 25 MG TAB PO SCH (09:04)
[2018-09-23 12:53] VITALS: BP 110/63; PULSE 97; TEMP 98.3
--- NOTE | 2018-09-23 13:46 | P.PN ---
Subjective Progress Note Date: 09/23/18 This is an 83-year-old gentleman seen in consultation on Wednesday. He was primarily admitted to the hospital with symptoms of shortness breath, chest x-ray shows improvement in the degree of pulmonary vascular congestion. Trace bilateral pleural effusions. currently receiving treatment for congestive heart failure. His weight today is unchanged. he is putting out good urine overall. INR today is 2.6, sodium 136, potassium 3.1, BUN 24, creatinine 1.0. He continues to be on a Lasix drip at 10 mg per hour. Repeat chest x-ray from today shows improvement in the degree of pulmonary vascular congestion, now mild with persistent very trace pleural effusions. Patient is sitting up in the chair at the time of my examination, he states he is feeling better. We'll continue to diurese with IV Lasix drip for 24 hours. 09/21/2018 Patient was seen and examined this morning, overall feeling significantly better. Continue to diurese well through the night. INR 2.2. Sodium 136, potassium 3.6, BUN 27, creatinine 1.0, magnesium 1.6. 09/22/2018 Patient seen and examined this morning, again diurese well through the night, weight down 2 kg today. Creatinine 1.3, potassium 5.1. He is currently on by mouth diuretics, we'll continue to monitor for another 24 hours and plan for possible discharge home in the morning tomorrow. 09/23/2018 Patient seen and examined today, doing well. Anticipating discharge today. Hemodynamically stable. On oral diuretics. Objective - Vital Signs Vital signs: Vital Signs Temp 98.3 F 09/23/18 12:00 Pulse 97 09/23/18 12:00 Resp 18 09/23/18 12:00 BP 110/63 09/23/18 12:00 Pulse Ox 96 09/23/18 12:00 Intake & Output 09/22/18 09/23/18 09/23/18 18:59 06:59 18:59 Intake Total 960 120 Output Total 175 Balance 960 -175 120 Weight 60 kg Intake: Oral 960 120 Output: Urine 175 Other: Voiding Method Diaper Diaper Diaper - Exam PHYSICAL EXAMINATION: GENERAL: 83-year-old gentleman in no acute distress at the time of my examination HEENT: Head is atraumatic, normocephalic. Pupils equal, round. Sclera anicteric. Conjunctiva are clear. Mucous membranes of the mouth are moist. Neck is supple. There is elevated jugular venous pressure. No carotid bruit is heard. HEART EXAMINATION: Heart S1 and S2 systolic ejection murmur is heard. CHEST EXAMINATION: Lungs reveal rales bilaterally to the bases. ABDOMEN: Soft, nontender. Bowel sounds are heard. No organomegaly noted. EXTREMITIES: 2+ peripheral pulses with 1+ evidence of peripheral edema and no calf tenderness noted. NEUROLOGIC patient is awake, alert and oriented 1 . - Labs CBC & Chem 7: 09/18/18 06:01 09/23/18 06:21 Labs: Abnormal Lab Results - Last 24 Hours (Table) 09/22/18 09/23/18 09/23/18 Range/Units 16:29 06:21 06:21 PT 24.9 H (9.0-12.0) sec INR 2.8 H (<1.2) Sodium 135 L (137-145) mmol/L Chloride 95 L (98-107) mmol/L Carbon Dioxide 36 H (22-30) mmol/L BUN 36 H (9-20) mg/dL Glucose 70 L (74-99) mg/dL POC Glucose (mg/dL) 100 H (75-99) mg/dL Assessment and Plan Plan: Assessment and plan #1 systolic congestive heart failure acute on chronic #2 moderate to severe aortic stenosis #3 hypertension #4 abnormality in troponin, not consistent with acute coronary syndrome #5 hypothyroidism #6 chronic persistent atrial fibrillation on Coumadin for anticoagulation #7 depression Plan From cardiology's perspective, we will continue current dose of oral diuretics, okay for discharge home from cardiology standpoint. Follow-up appointment in the office post discharge. DNP note has been reviewed, I agree with a documented findings and plan of care. Patient was seen and examined.
--- NOTE | 2018-09-23 14:25 | DS ---
DISCHARGE SUMMARY DATE OF ADMISSION: 09/17/2018 DATE OF DISCHARGE: 09/23/2018 FINAL DIAGNOSES: 1. Acute on chronic congestive heart failure exacerbation from systolic dysfunction, ejection fraction 20%-25'%. 2. Acute renal failure prerenal from diuresis. 3. Severe secondary pulmonary hypertension secondary to congestive heart failure. 4. Severe mitral and tricuspid regurgitation, nonrheumatic. 5. Persistent atrial fibrillation on Coumadin. 6. Hypothyroidism. 7. Chronic left below-knee amputation. Patient has a prosthesis. 8. Moderate cognitive impairment, probably from underlying Alzheimer's dementia. 9. Primary osteoarthritis, multiple joints bilateral. 10.Benign prostatic hypertrophy. 11.Very hard of hearing. 12.Baseline medical debility. 13.Moderate aortic stenosis, nonrheumatic. 14.CODE STATUS: DO NOT RESUSCITATE. CONSULTATION: Dr. Abigail Staples from Cardiology. HOSPITAL COURSE: This patient presented with severe CHF exacerbation, was on a Lasix drip, that used alot. Patient did go temporally into renal failure with creatinine going up to 1.34 from a baseline of 0.93. Also was briefly hypotensive, did come back. Given his age, patient's prognosis is guarded. Patient is tolerating some diet. Weak and tired. PHYSICAL EXAMINATION: Temperature 98.3, pulse 97, respirations 18, blood pressure 110/60, pulse ox 96% on 2 L. LUNGS: Decreased breath sounds. ABDOMEN: Soft. Able to answer simple questions. INVESTIGATIONS: INR is 2.8. Potassium is 4.3, BUN 36, creatinine 1.15. DISCHARGE MEDICATIONS: 1. Aspirin 81 mg a day. 2. Levothyroxine 25 mcg a day. 3. Zoloft 50 mg q.h.s. 4. Medihoney 1 application topical daily p.r.n. 5. Omeprazole 20 mg b.i.d. 6. Senna 8.6 mg p.o. daily. 7. Visine eyedrops 1 drop to both eyes daily p.r.n. 8. Iron 325 p.o. daily. 9. Potassium 20 mEq p.o. daily. 10.Coumadin 2.5 p.o. daily at 6:00 pm. 11.Tylenol 650 mg q.6 p.r.n. 12.Lasix 40 mg p.o. b.i.d. 13.Cozaar 50 mg p.o. q.h.s. 14.Lopressor 25 mg b.i.d. 15.Aldactone 25 mg p.o. daily. DISPOSITION: [facility]. FOLLOWUP: Follow up with Visiting Physician, Dr. Sanchez. LABS: BMP, INR in 3 days. CODE STATUS: DNR Wound on the right foot at the ankle, present on admission for which patient is getting MediHoney, present on admission, likely from local trauma. MMODL / IJN: [id number] /
[2018-09-23 15:24] VITALS: BMI 19.5
[2018-09-23] MEDS ORDERED: WARFARIN 2.5 MG TAB PO ONE (18:00)
== END 2018-09-23 16:01 | DRG 292 ==
LOC: EC 11:29 → 3SCARD 14:24
PROVIDERS: ADMIT Hospitalist; ATTEND Hospitalist
DX: I11.0 Hypertensive heart disease with heart failure (principal); N17.9 Acute kidney failure, unspecified; I50.23 Acute on chronic systolic (congestive) heart failure; Z66 Do not resuscitate; I27.22 Pulmonary hypertension due to left heart disease; I95.9 Hypotension, unspecified; I08.1 Rheumatic disorders of both mitral and tricuspid valves; S91.001A Unspecified open wound, right ankle, initial encounter; I48.2 Chronic atrial fibrillation; I42.9 Cardiomyopathy, unspecified; E11.9 Type 2 diabetes mellitus without complications; J44.9 Chronic obstructive pulmonary disease, unspecified; G30.9 Alzheimer's disease, unspecified; F02.80 Dementia in other diseases classified elsewhere, unspecified severity, without behavioral disturbance, psychotic disturbance, mood disturbance, and anxiety; I35.0 Nonrheumatic aortic (valve) stenosis; T50.1X5A Adverse effect of loop [high-ceiling] diuretics, initial encounter; E78.5 Hyperlipidemia, unspecified; G47.33 Obstructive sleep apnea (adult) (pediatric); E03.9 Hypothyroidism, unspecified; F32.9 Major depressive disorder, single episode, unspecified; F41.9 Anxiety disorder, unspecified; I25.10 Atherosclerotic heart disease of native coronary artery without angina pectoris; K21.9 Gastro-esophageal reflux disease without esophagitis; N40.0 Benign prostatic hyperplasia without lower urinary tract symptoms; M19.91 Primary osteoarthritis, unspecified site; I25.2 Old myocardial infarction; H91.90 Unspecified hearing loss, unspecified ear; K59.00 Constipation, unspecified; R79.1 Abnormal coagulation profile; Z79.899 Other long term (current) drug therapy; Z79.82 Long term (current) use of aspirin; Z79.890 Hormone replacement therapy; Z79.01 Long term (current) use of anticoagulants; Z87.891 Personal history of nicotine dependence; Z86.14 Personal history of Methicillin resistant Staphylococcus aureus infection; Z87.01 Personal history of pneumonia (recurrent); Z96.653 Presence of artificial knee joint, bilateral; Z89.512 Acquired absence of left leg below knee; Z99.89 Dependence on other enabling machines and devices
CPT/HCPCS: 36415; 71045; 71046; 74018; 80048; 80053; 80061; 81003; 82150; 82550; 82553; 83690; 83735; 83880; 84443; 84484; 85025; 85027; 85610; 85730; 93005; 96360; 96361; 99285

== ENCOUNTER 2018-11-26 00:23 | Inpatient (IN) | payer MEDICARE, BC ==
[2018-11-26] MEDS ORDERED: FUROSEMIDE 10 MG/ML 4 ML VIAL IV SCH (02:15)
[2018-11-26] MEDS ORDERED: IPRATROPIUM-ALBUTEROL 3 ML NEB INHALATION PRN (02:21)
[2018-11-26] MEDS ORDERED: hydrALAZINE HCL 20 MG/ML 1 ML VIAL IVP PRN (02:23)
[2018-11-26] MEDS ORDERED: HYDROcodone/APAP 5-325MG 1 EACH TAB PO PRN (02:25)
[2018-11-26] MEDS ORDERED: ACETAMINOPHEN TAB 325 MG TAB PO PRN (02:25)
[2018-11-26] MEDS ORDERED: TEMAZEPAM 7.5 MG CAP PO PRN (02:26)
[2018-11-26] MEDS ORDERED: ALPRAZolam 0.25 MG TAB PO PRN ×2 (02:26→02:29)
[2018-11-26 02:40] VITALS: BMI 22.4
[2018-11-26 02:57] LABS: HCT 39.4 % (39.0-53.0); HGB 10.5 gm/dL (13.0-17.5); Hypochromasia Marked; MCHC 26.5 g/dL (31.0-37.0); MCV 101.6 fL (80.0-100.0); Macrocytosis Slight; Mean Platelet Volume 8.8; Platelet Count 232 k/uL (150-450); RBC 3.88 m/uL (4.30-5.90); RDW 15.8 % (11.5-15.5); WBC 19.7 k/uL (3.8-10.6)
[2018-11-26 03:07] LABS: Albumin 3.2 g/dL (3.5-5.0); Calcium 9.6 mg/dL (8.4-10.2); Magnesium 2.7 mg/dL (1.6-2.3); Total Bilirubin 1.7 mg/dL (0.2-1.3); Total Protein 7.1 g/dL (6.3-8.2)
[2018-11-26 03:14] LABS: D-Dimer 5.24 mg/L FEU (<0.60)
[2018-11-26 03:15] LABS: Partial Thromboplastin Time 35.3 sec (22.0-30.0)
[2018-11-26 03:23] LABS: Potassium 6.6 mmol/L (3.5-5.1)
[2018-11-26 04:00] LABS: Band Neutrophils % 16 %; Lymphocytes # (M) 0.79 k/uL (1.0-4.8); Monocytes # (M) 0.79 k/uL (0-1.0); Neutrophils % (M) 76 %; Nucleated Red Blood Cells 0 /100 WBC (0-0); Total Cells Counted 100
[2018-11-26 04:18] VITALS: TEMP 96.3
[2018-11-26 04:19] VITALS: BP 126/71
[2018-11-26 04:41] VITALS: PULSE 92; RESP 15
[2018-11-26] MEDS ORDERED: PANTOPRAZOLE 40 MG TABLET PO SCH (07:30)
[2018-11-26] MEDS ORDERED: PIPERACILLIN-TAZOBACTAM 3.375 GM in SODIUM CHLORIDE 0.9% 100 ML IVPB SCH (08:00)
[2018-11-26] MEDS ORDERED: SYMBICORT 160-4.5 MCG INHALER INHALATION SCH (08:00)
[2018-11-26] MEDS ORDERED: HEPARIN SODIUM,PORCINE 5,000 UNIT/ML 1 ML VIAL SQ SCH (09:00)
--- NOTE | 2018-11-26 21:10 | HP ---
HISTORY AND PHYSICAL HISTORY AND PHYSICAL/ SUMMARY: HISTORY OF PRESENT ILLNESS: This 83-year-old gentleman with a past medical history of multiple complex medical issues including atrial fibrillation, history of cardiomyopathy, ejection fraction 20- 25 percent with moderate to severe aortic stenosis, history of hypertension, hyperlipidemia, history of sleep apnea, history of MRSA, history of anxiety/depression being followed by Dr. Sanchez in the outpatient setting was recently admitted to [facility] with CHF acute exacerbation. Patient treated with diuretics. The patient subsequently was sent to [facility] in [place]. From [facility] in [place], the patient was admitted to the hospital with complaints of shortness of breath and features of pneumonia and CHF and multiple medical issues. The patient was deemed DO NOT RESUSCITATE while the patient was in [facility], but however the patient presented to the [facility] and subsequently patient was transferred to [facility]. During transportation, EMS transfer, the patient became more short of breath. The patient become cyanotic and had features of CHF and respiratory failure and the patient after reaching [facility], the labs showed multiple abnormalities including creatinine 1.78 and lactic acid 18 and troponin 0.7229. AST 286, ALT of 145, potassium 6.6, and D-dimer 5.24. WBC 19.7, which are grossly abnormal. The patient also has severe dementia also. Shortly after that, the patient became hypotensive, hypoxic and succumbed to his illness, multiple complex medical issues. The prognosis was extremely guarded throughout the hospitalization and once again the patient was DNR. Please refer to the the previous notes and previous consultations and staff notes for further details. PRIMARY CAUSE OF : Congestive heart failure with possibly ischemic cardiomyopathy, ejection fraction 20-25 percent. OTHER DIAGNOSES: 1. Possible pneumonia with sepsis. 2. Acute hypoxic respiratory failure. 3. Severe pulmonary hypertension. 4. Acute on chronic renal failure. 5. Hyperkalemia. 6. Lactic acid 18. 7. Troponin 0.729. 8. Increased AST/ALT. 9. Increased WBC. 10.Severe mitral and tricuspid regurgitation, nonrheumatic. 11.Persistent atrial fibrillation. 12.Left below-knee amputation. 13.Dementia. 14.Degenerative joint disease. 15.Hard of hearing. 16.Medical debility. 17.Severe aortic stenosis. 18.NO CODE, NO CPR, NO VENT and DNR. MMODL / IJN: [id number] /
== END 2018-11-26 06:40 | disposition expired | DRG 871 ==
LOC: 3SCARD 01:44
PROVIDERS: ADMIT Hospitalist; ATTEND Hospitalist
DX: A41.9 Sepsis, unspecified organism (principal); I50.23 Acute on chronic systolic (congestive) heart failure; J18.9 Pneumonia, unspecified organism; J96.01 Acute respiratory failure with hypoxia; I13.0 Hypertensive heart and chronic kidney disease with heart failure and stage 1 through stage 4 chronic kidney disease, or unspecified chronic kidney disease; I48.1 Persistent atrial fibrillation; N17.9 Acute kidney failure, unspecified; Z66 Do not resuscitate; I27.20 Pulmonary hypertension, unspecified; E87.5 Hyperkalemia; I36.1 Nonrheumatic tricuspid (valve) insufficiency; I25.5 Ischemic cardiomyopathy; F03.90 Unspecified dementia, unspecified severity, without behavioral disturbance, psychotic disturbance, mood disturbance, and anxiety; I35.0 Nonrheumatic aortic (valve) stenosis; I34.0 Nonrheumatic mitral (valve) insufficiency; E78.5 Hyperlipidemia, unspecified; G47.30 Sleep apnea, unspecified; N18.9 Chronic kidney disease, unspecified; F32.9 Major depressive disorder, single episode, unspecified; F41.9 Anxiety disorder, unspecified; H91.90 Unspecified hearing loss, unspecified ear; Z86.14 Personal history of Methicillin resistant Staphylococcus aureus infection
CPT/HCPCS: 80053; 83605; 83735; 83880; 84484; 85025; 85379; 85610; 85730; 87040; 94660